=== PATIENT | female | born 1975 | race Caucasian/White ===

== ENCOUNTER → 2016-07-27 | Outpatient (CLI) | payer OTHER ==
--- NOTE | 2016-07-27 16:02 | Diagnostic Imaging Report ---
INDICATION: Upper respiratory infection. PA and lateral chest obtained at 3:53 p.m. and compared to 12/10/15. FINDINGS: Heart and mediastinal silhouette are normal in appearance. The lungs are clear. There is no pneumothorax or pleural fluid. IMPRESSION: Negative chest. Dictated by: Dictated on workstation # [id number]
== END ==
LOC: RAD 15:26
PROVIDERS: ATTEND Family Medicine
DX: J06.9 Acute upper respiratory infection, unspecified (principal)
CPT/HCPCS: 71020

== ENCOUNTER → 2016-08-17 | Outpatient (CLI) | payer OTHER ==
[2016-08-17 10:10] LABS: BASOPHILS % (AUTO) 1 % (0-10); EOSINOPHILS # (AUTO) 0.2 10^3/uL (0.0-0.3); EOSINOPHILS % (AUTO) 4 % (0-10); LYMPHOCYTES # (AUTO) 1.6 X 10^3 (1.0-4.0); LYMPHOCYTES % (AUTO) 24 % (12-44); MEAN CORPUSCULAR HEMOGLOBIN 30 PG (25-34); MEAN CORPUSCULAR HGB CONC 34 G/DL (32-36); MEAN CORPUSCULAR VOLUME 89 FL (80-99); MEAN PLATELET VOLUME 11.3 FL (7.4-10.4); MONOCYTES # (AUTO) 0.6 X 10^3 (0.0-1.0); MONOCYTES % (AUTO) 10 % (0-12); NEUTROPHILS # (AUTO) 4.1 X 10^3 (1.8-7.8); NEUTROPHILS % (AUTO) 62 % (42-75); PLATELET COUNT 237 10^3/uL (130-400); RED BLOOD COUNT 4.22 10^6/uL (4.35-5.85); RED CELL DISTRIBUTION WIDTH 14.5 % (10.0-14.5); WHITE BLOOD COUNT 6.7 10^3/uL (4.3-11.0)
[2016-08-17 10:33] LABS: ALANINE AMINOTRANSFERASE 212 U/L (0-55); ALBUMIN 4.2 GM/DL (3.2-4.5); ANION GAP 10 MMOL/L (5-14); ASPARTATE AMINO TRANSFERASE 119 U/L (5-34); BLOOD UREA NITROGEN 7 MG/DL (7-18); BUN/CREATININE RATIO 9 (0-20); CALCIUM 9.7 MG/DL (8.5-10.1); CARBON DIOXIDE 24 MMOL/L (21-32); CHLORIDE 104 MMOL/L (98-107); CREATININE SERUM 0.79 MG/DL (0.60-1.30); GFR ESTIMATED > 60; GLUCOSE 178 MG/DL (70-105); HEMOLYSIS 5 (-100-29); ICTERUS 0.8 (-100-1.9); LIPEMIA 16 (-100-49); POTASSIUM 4.1 MMOL/L (3.6-5.0); SODIUM 138 MMOL/L (135-145); TOTAL PROTEIN 7.5 GM/DL (6.4-8.2)
[2016-08-17 10:56] LABS: THYROID STIMULATING HORMONE 1.73 UIU/ML (0.35-4.94)
== END ==
LOC: LAB 09:41
PROVIDERS: ATTEND Family Medicine
DX: E28.2 Polycystic ovarian syndrome (principal); R05 Cough
CPT/HCPCS: 36415; 80053; 83036; 84439; 84443; 85025

== ENCOUNTER → 2016-08-18 | Outpatient (CLI) | payer OTHER ==
[2016-08-19 01:39] LABS: LYME AB G M 0.09 Index (0.00-0.89)
[2016-08-19 07:26] LABS: LYME AB INTERP Negative (Negative)
[2016-08-19 07:28] LABS: TULAREMIA ANTIBODY <1:20
[2016-08-19 13:21] LABS: EHRLICHIA CHAFFEENSIS G ABY <1:16 (<1:16)
[2016-08-19 15:54] LABS: IGG ROCKY MOUNTAIN SPOTTED FEV <1:16 (<1:16); IGM ROCKY MOUNTAIN SPOTTED FEV <1:10 (<1:10)
== END ==
LOC: LAB 15:46
PROVIDERS: ATTEND Family Medicine
DX: R74.8 Abnormal levels of other serum enzymes (principal)
CPT/HCPCS: 36415; 80074; 86618; 86666; 86668; 86757

== ENCOUNTER 2016-10-08 10:12 | Outpatient (CLI) | payer OTHER | END 2016-10-08 10:45 | disposition home or self-care (01) | LOC: SLEEP 10:12 | PROVIDERS: ATTEND Otolaryngology Otolaryngology/Facial Plastic Surgery | DX: G47.33 Obstructive sleep apnea (adult) (pediatric) (principal) ==

== ENCOUNTER → 2016-10-15 | Outpatient (CLI) | payer OTHER ==
[~2016-10-15] MED LIST: CATHETER FLUSH 10 ML SYR IV PRN; IOHEXOL 350 MG/ML 100 ML (OMNIPAQUE 350) VIAL IV ONE; NS 100 ML (IVPB) BAG IV ONE
[2016-10-15 08:14] LABS: BLOOD UREA NITROGEN 9 MG/DL (7-18); BUN/CREATININE RATIO 12; CREATININE SERUM 0.75 MG/DL (0.60-1.30); GFR ESTIMATED > 60
--- NOTE | 2016-10-15 09:30 | Diagnostic Imaging Report ---
CLINICAL INDICATION: Since May 2016, patient has had a sore throat and cough. EXAM: Axial CT scan of the neck soft tissue performed with 75 cc of Omnipaque 350 IV contrast. Coronal reformatted images were created. COMPARISON: None. FINDINGS: There is a circumscribed 7 mm x 3 mm hypodense area involving the left side of the posterior nasopharynx seen on series 2, image 20. This likely represents a mucus retention cyst or an area of fluid within the left lateral recess. Otherwise, there is no significant neck soft tissue abnormality seen. The nasopharynx, oropharynx, hypopharynx, and laryngeal structures show no significant abnormality. The thyroid gland is unremarkable. There is nonspecific minimal prominence of the intraglandular bilateral submandibular gland ducts. There is no stones or mass seen. The ducts are less than 2 mm in size. The bilateral salivary glands are unremarkable. The visualized portions of the tongue, sublingual region, and submandibular regions are unremarkable. There is multiple small lymph nodes seen throughout both next which are all subcentimeter in short axis. The neck vascular structures are unremarkable as visualized. The upper lung amaya are clear. There is a small to moderate amount of mucosal thickening and secretions in the sphenoid sinus. Torus palatinus is noted. 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 Cervical spine shows no significant abnormality. IMPRESSION: 1: Likely small mucus retention cyst or area of fluid in the region of the left lateral recess of the posterior nasopharynx. 2: There is nonspecific minimal prominence of the intraglandular ducts of both submandibular glands. There are no stones or masses seen. There is no adjacent fat stranding or inflammatory process. 3: Otherwise unremarkable CT scan of the neck soft tissue. 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 Dictated by: Dictated on workstation # [id number]
== END ==
LOC: RAD 07:33
PROVIDERS: ATTEND Otolaryngology Otolaryngology/Facial Plastic Surgery
DX: R93.8 Abnormal findings on diagnostic imaging of other specified body structures (principal); Q28.3 Other malformations of cerebral vessels; J02.9 Acute pharyngitis, unspecified; R05 Cough
CPT/HCPCS: 36415; 70491; 82565; 84520

== ENCOUNTER → 2016-11-22 | Outpatient (CLI) | payer OTHER ==
[~2016-11-22] MED LIST changes: -CATHETER FLUSH 10 ML SYR IV PRN; -IOHEXOL 350 MG/ML 100 ML (OMNIPAQUE 350) VIAL IV ONE; -NS 100 ML (IVPB) BAG IV ONE; +RT-ALBUTEROL SULF 2.5 MG/3 ML PRE-MIX VIAL IH ONE
== END ==
LOC: RT 13:06
PROVIDERS: ATTEND Family Medicine
DX: R05 Cough (principal)
CPT/HCPCS: 94060; 94640; 94726; 94729

== ENCOUNTER → 2016-12-03 | Outpatient (CLI) | payer OTHER ==
--- NOTE | 2016-12-03 16:08 | Diagnostic Imaging Report ---
PROCEDURE: CT chest without contrast. TECHNIQUE: Multiple contiguous axial images were obtained through the chest without the use of intravenous contrast. INDICATION: Chronic cough since May. FINDINGS: The lungs are well aerated. There are no infiltrates. No evidence of interstitial lung disease. No evidence of bronchiectasis. No air trapping is seen. No masses are present. No mediastinal or hilar adenopathy of pathologic size. There is no pleural effusion or pericardial effusion. The adrenal glands are normal. There is a small fixed hiatal hernia present. Bone windows show no destructive or blastic bony lesions. IMPRESSION: 1. Lungs appear normal. 2. There is a small fixed hiatal hernia present. Dictated by: Dictated on workstation # [id number]
[2016-12-03 16:12] LABS: ALANINE AMINOTRANSFERASE 341 U/L (0-55); ALBUMIN 4.2 GM/DL (3.2-4.5); ANION GAP 10 MMOL/L (5-14); ASPARTATE AMINO TRANSFERASE 159 U/L (5-34); BILIRUBIN,TOTAL 0.8 MG/DL (0.1-1.0); BLOOD UREA NITROGEN 7 MG/DL (7-18); BUN/CREATININE RATIO 7; CALCIUM 9.4 MG/DL (8.5-10.1); CARBON DIOXIDE 22 MMOL/L (21-32); CHLORIDE 106 MMOL/L (98-107); CREATININE SERUM 0.96 MG/DL (0.60-1.30); GFR ESTIMATED > 60; GLUCOSE 222 MG/DL (70-105); POTASSIUM 3.5 MMOL/L (3.6-5.0); SODIUM 138 MMOL/L (135-145); TOTAL PROTEIN 7.5 GM/DL (6.4-8.2)
[2016-12-03 16:32] LABS: THYROID STIMULATING HORMONE 1.97 UIU/ML (0.35-4.94)
[2016-12-03 22:20] LABS: IGE DETAIL 32.3 IU/mL
[2016-12-04 16:26] LABS: INT IGE See Footnote
[2016-12-05 07:19] LABS: BERMUDA CL CLASS 0; BERMUDA GRASS RAST <0.35 kU/L (<0.35); ELM TREE <0.35 kU/L (<0.35); ELM TREE CL CLASS 0; KENT BLUE CL CLASS 0; KENTUCKY BLUE GRASS RAST <0.35 kU/L (<0.35); OAK TREE <0.35 kU/L (<0.35); OAK TREE CL CLASS 0; PECAN TR CL CLASS 0
[2016-12-05 07:20] LABS: CAT DANDER CL CLASS 0; CAT DANDER RAST <0.35 kU/L (<0.35); DOG DANDER CL CLASS 0; DOG DANDER RAST <0.35 kU/L (<0.35); DUST MITE CL CLASS 0; DUST MITE RAST <0.35 kU/L (<0.35); JOHNSON GR CL CLASS 0; JOHNSON GRASS RAST <0.35 kU/L (<0.35); MARSH ELDER RAST <0.35 kU/L (<0.35); RAGWEED CL CLASS 0; RAGWEED RAST <0.35 kU/L (<0.35); ROUGH MARSH CL CLASS 0
[2016-12-05 07:21] LABS: ALT TEN CL CLASS 0; CLADOSPORIUM CL CLASS 0; CLADOSPORIUM MOLD RAST <0.35 kU/L (<0.35)
[2016-12-05 07:23] LABS: ALLERGEN INTERP SEE FOOTNOTE
== END ==
LOC: RAD 15:08
PROVIDERS: ATTEND Nurse Practitioner Family
DX: K44.9 Diaphragmatic hernia without obstruction or gangrene (principal); J30.9 Allergic rhinitis, unspecified
CPT/HCPCS: 36415; 71250; 80053; 82785; 84443; 84480; 86003

== ENCOUNTER → 2016-12-03 | Outpatient (CLI) | payer OTHER | LOC: LAB 15:17 | PROVIDERS: ATTEND Family Medicine | DX: R05 Cough (principal); R53.83 Other fatigue; R74.8 Abnormal levels of other serum enzymes ==

== ENCOUNTER → 2017-01-28 | Outpatient (CLI) | payer OTHER ==
[2017-01-28 08:53] LABS: ALANINE AMINOTRANSFERASE 230 U/L (0-55); ALBUMIN 4.4 GM/DL (3.2-4.5); ANION GAP 7 MMOL/L (5-14); ASPARTATE AMINO TRANSFERASE 124 U/L (5-34); BILIRUBIN,TOTAL 0.9 MG/DL (0.1-1.0); BLOOD UREA NITROGEN 7 MG/DL (7-18); BUN/CREATININE RATIO 9; CALCIUM 9.7 MG/DL (8.5-10.1); CARBON DIOXIDE 24 MMOL/L (21-32); CHLORIDE 107 MMOL/L (98-107); CREATININE SERUM 0.75 MG/DL (0.60-1.30); GFR ESTIMATED > 60; GLUCOSE 144 MG/DL (70-105); POTASSIUM 4.2 MMOL/L (3.6-5.0); SODIUM 138 MMOL/L (135-145); TOTAL PROTEIN 7.8 GM/DL (6.4-8.2)
== END ==
LOC: LAB 08:16
PROVIDERS: ATTEND Family Medicine
DX: R73.9 Hyperglycemia, unspecified (principal); R74.8 Abnormal levels of other serum enzymes
CPT/HCPCS: 36415; 80053; 83036

== ENCOUNTER → 2017-09-23 | Outpatient (CLI) | payer OTHER ==
[2017-09-23 09:46] LABS: BASOPHILS % (AUTO) 1 % (0-10); EOSINOPHILS # (AUTO) 0.1 10^3/uL (0.0-0.3); EOSINOPHILS % (AUTO) 2 % (0-10); HEMATOCRIT 38 % (35-52); LYMPHOCYTES # (AUTO) 1.6 X 10^3 (1.0-4.0); LYMPHOCYTES % (AUTO) 27 % (12-44); MEAN CORPUSCULAR HEMOGLOBIN 29 PG (25-34); MEAN CORPUSCULAR HGB CONC 34 G/DL (32-36); MEAN CORPUSCULAR VOLUME 86 FL (80-99); MEAN PLATELET VOLUME 11.2 FL (7.4-10.4); MONOCYTES # (AUTO) 0.6 X 10^3 (0.0-1.0); MONOCYTES % (AUTO) 10 % (0-12); NEUTROPHILS # (AUTO) 3.4 X 10^3 (1.8-7.8); NEUTROPHILS % (AUTO) 59 % (42-75); PLATELET COUNT 210 10^3/uL (130-400); RED BLOOD COUNT 4.43 10^6/uL (4.35-5.85); RED CELL DISTRIBUTION WIDTH 14.8 % (10.0-14.5); WHITE BLOOD COUNT 5.7 10^3/uL (4.3-11.0)
[2017-09-23 10:00] LABS: ALANINE AMINOTRANSFERASE 286 U/L (0-55); ALBUMIN 4.6 GM/DL (3.2-4.5); ALKALINE PHOSPHATASE 64 U/L (40-136); BILIRUBIN,TOTAL 1.1 MG/DL (0.1-1.0); BUN/CREATININE RATIO 8; CARBON DIOXIDE 26 MMOL/L (21-32); CHLORIDE 107 MMOL/L (98-107); CREATININE SERUM 0.76 MG/DL (0.60-1.30); GFR ESTIMATED > 60; GLUCOSE 136 MG/DL (70-105); POTASSIUM 4.3 MMOL/L (3.6-5.0); SODIUM 140 MMOL/L (135-145); TOTAL PROTEIN 7.5 GM/DL (6.4-8.2)
== END ==
LOC: LAB 09:14
PROVIDERS: ATTEND Nurse Practitioner Family
DX: Z00.00 Encounter for general adult medical examination without abnormal findings (principal); R74.8 Abnormal levels of other serum enzymes; E28.2 Polycystic ovarian syndrome; R73.02 Impaired glucose tolerance (oral)
CPT/HCPCS: 36415; 80053; 83036; 83525; 84443; 85025

== ENCOUNTER → 2017-10-11 | Outpatient (CLI) | payer OTHER ==
--- NOTE | 2017-10-12 13:12 | Diagnostic Imaging Report ---
INDICATION: Routine screening. COMPARISON: Comparison is made with prior mammogram from 03/26/2015. TECHNIQUE: 2D and 3D bilateral screening mammography was performed with computer-aided detection (CAD) system. FINDINGS: Scattered fibroglandular densities are identified bilaterally. The parenchymal pattern appears stable. No dominant mass or malignant appearing microcalcifications are seen. Area of nodularity in the retroareolar left breast appears stable. Axillae are unremarkable. IMPRESSION: No mammographic features suspicious for malignancy are identified. ACR BI-RADS Category 2: Benign findings. Result letter will be mailed to the patient. Note: At least 10% of breast cancer is not imaged by mammography. Dictated by: Dictated on workstation # [id number]
== END ==
LOC: RAD 09:30
PROVIDERS: ATTEND Nurse Practitioner Family
DX: Z12.31 Encounter for screening mammogram for malignant neoplasm of breast (principal)
CPT/HCPCS: 77067

== ENCOUNTER → 2017-11-10 | Outpatient (CLI) | payer OTHER ==
--- NOTE | 2017-11-10 16:34 | Diagnostic Imaging Report ---
Clinical indication: Patient with slight wheeze when exhaling. Patient had cough x 1 week. Exam: Chest x-ray PA and lateral views. Comparisons: Chest x-ray dated 07/27/2016. Findings: Lungs/pleura: Lungs are clear. There is no pneumothorax. There is no pleural effusion. Mediastinum: Unremarkable. Pulmonary vasculature: Unremarkable. Heart: Unremarkable. Bones/extrathoracic soft tissue: Surgical clips are seen overlying the right upper quadrant which could be related to cholecystectomy changes. Bones show no significant abnormality. Impression: There is no radiographic evidence of acute cardiopulmonary process. Dictated by: Dictated on workstation # [id number]
== END ==
LOC: RAD 15:40
PROVIDERS: ATTEND Nurse Practitioner Family
DX: R05 Cough (principal); R06.2 Wheezing; R09.89 Other specified symptoms and signs involving the circulatory and respiratory systems
CPT/HCPCS: 71046

== ENCOUNTER → 2018-01-31 | Outpatient (CLI) | payer OTHER ==
--- NOTE | 2018-01-31 18:23 | Diagnostic Imaging Report ---
INDICATION: Pain in the region of the right fibular head. TIME OF EXAM: 3:04 p.m. FINDINGS: Frontal and lateral views of the right tibia and fibula were obtained. Alignment at the knee and ankle appears normal. The tibia and fibula appear intact. No fractures are identified. IMPRESSION: No acute bony abnormality is detected. Dictated by: Dictated on workstation # [id number]
--- NOTE | 2018-01-31 18:28 | Diagnostic Imaging Report ---
INDICATION: Right-sided leg pain. TIME OF EXAM: 3:03 p.m. FINDINGS: Three views of the lumbar spine were obtained. Curvature is normal. There appears to be minimal retrolisthesis of L4 on L5. Vertebral body heights are maintained. No acute compression fracture is identified. Minimal anterior spurring at the L4-5 level is noted. IMPRESSION: Mild lower lumbar spondylosis and listhesis. No acute bony abnormality is detected. Dictated by: Dictated on workstation # [id number]
== END ==
LOC: RAD 14:30
PROVIDERS: ATTEND Family Medicine
DX: M47.26 Other spondylosis with radiculopathy, lumbar region (principal); M43.16 Spondylolisthesis, lumbar region
CPT/HCPCS: 72100; 73590

== ENCOUNTER → 2018-06-27 | Outpatient (CLI) | payer OTHER | LOC: CARD 09:49 | PROVIDERS: ATTEND Nurse Practitioner Family | DX: R03.0 Elevated blood-pressure reading, without diagnosis of hypertension (principal) | CPT/HCPCS: 93306 ==

== ENCOUNTER → 2019-02-01 | Outpatient (CLI) | payer OTHER ==
--- NOTE | 2019-02-01 12:06 | Diagnostic Imaging Report ---
INDICATION: Routine screening. Comparison is made with prior mammogram 10/11/2017 and 03/26/2015. 2-D and 3-D bilateral screening mammography was performed with CAD. Scattered fibroglandular densities are identified bilaterally. Retroareolar nodularity on the left appears stable. Remainder of both breasts appears stable. No new mass or malignant appearing microcalcifications are seen. Axillae are unremarkable. IMPRESSION: BI-RADS Category 2 No mammographic features suspicious for malignancy are identified. ACR BI-RADS Category 2: Benign findings. Result letter will be mailed to the patient. Note: At least 10% of breast cancer is not imaged by mammography. Dictated by: Dictated on workstation # [id number]
== END ==
LOC: RAD 10:20
PROVIDERS: ATTEND Family Medicine
DX: Z12.31 Encounter for screening mammogram for malignant neoplasm of breast (principal)
CPT/HCPCS: 77067

== ENCOUNTER 2019-05-11 09:28 | Outpatient (CLI) | payer OTHER ==
[~2019-05-11] VITALS: Ht 157 cm; Wt 103.1 kg
[2019-05-11] MEDS ORDERED: LISI40TA PO (09:42)
[2019-05-11] MEDS ORDERED: METF-399 PO (09:42)
[2019-05-11] MEDS ORDERED: ESCI20TA PO (09:42)
[2019-05-11] MEDS ORDERED: AMLO5TAB9 PO (09:42)
[2019-05-11] MEDS ORDERED: BREX0.5T PO (09:42)
[2019-05-11 09:47] VITALS: BP 124/76
[2019-05-11 11:12] LABS: BASOPHILS % (AUTO) 0 % (0-10); EOSINOPHILS # (AUTO) 0.4 10^3/uL (0.0-0.3); EOSINOPHILS % (AUTO) 5 % (0-10); HEMATOCRIT 39 % (35-52); HEMOGLOBIN 13.1 G/DL (11.5-16.0); LYMPHOCYTES # (AUTO) 1.9 X 10^3 (1.0-4.0); LYMPHOCYTES % (AUTO) 23 % (12-44); MEAN CORPUSCULAR HEMOGLOBIN 28 PG (25-34); MEAN CORPUSCULAR HGB CONC 33 G/DL (32-36); MEAN CORPUSCULAR VOLUME 86 FL (80-99); MEAN PLATELET VOLUME 11.8 FL (7.4-10.4); MONOCYTES # (AUTO) 0.6 X 10^3 (0.0-1.0); MONOCYTES % (AUTO) 8 % (0-12); NEUTROPHILS # (AUTO) 5.2 X 10^3 (1.8-7.8); NEUTROPHILS % (AUTO) 64 % (42-75); PLATELET COUNT 303 10^3/uL (130-400); RED CELL DISTRIBUTION WIDTH 14.8 % (10.0-14.5); WHITE BLOOD COUNT 8.1 10^3/uL (4.3-11.0)
== END 2019-05-11 12:30 | disposition home or self-care (01) ==
LOC: PREOP 09:28
PROVIDERS: ATTEND Obstetrics & Gynecology
DX: Z01.812 Encounter for preprocedural laboratory examination (principal); N92.0 Excessive and frequent menstruation with regular cycle; R32 Unspecified urinary incontinence
CPT/HCPCS: 36415; 85025; 86850; 86900; 86901; 87081

== ENCOUNTER 2019-05-18 10:02 | Day surgery (SDC) | payer OTHER ==
[~2019-05-18] VITALS: Ht 157 cm; Wt 103.1 kg
[2019-05-18] VITALS (11 sets, daily range): BP systolic 72–128; BP diastolic 38–79
--- NOTE | 2019-05-18 09:11 | Progress Note-Pre Operative ---
Pre-Operative Progress Note H&P Reviewed The H&P was reviewed, patient examined and no changes noted. Date Seen by Provider: May 18, 2019 Time Seen by Provider: 11:45 Date H&P Reviewed: May 18, 2019 Time H&P Reviewed: :45 Pre-Operative Diagnosis: Uterovaginal prolapse/PIO WILY METZGER MD May 18, 2019 09:11
--- NOTE | 2019-05-18 09:12 | Progress Note-Post Operative ---
Post-Operative Progess Note Surgeon (s)/Furniture Inspector (s) Surgeon WILY METZGER MD Furniture Inspector: Skylar Dukes Pre-Operative Diagnosis Uterovaginal prolapse/PIO Post-Operative Diagnosis same Procedure & Operative Findings Date of Procedure 05/18/19 Procedure Performed/Findings TLH/BSO/A&P rep with Enterocele repair and PVS/Cysto by Dr. Raymond Anesthesia Type GETA Estimated Blood Loss Estimated blood loss (mL): 200 mL Specimens/Packing Specimens Removed TLH/BSO Packing: Kerlix in vagina WILY METZGER MD May 18, 2019 09:12
--- NOTE | 2019-05-18 09:19 | Discharge Inst-Surgical ---
Discharge Inst-Surgical Depart Medication/Instructions New, Converted or Re-Newed RX: RX on Chart Consults/Follow Up Patient Instructions: as directed Orders & Referrals Follow Up Appt: RTC on Tuesday May 21, 2019 at 0930 for staple removal Call to make follow up appt. for patient in 4 weeks. F/up with Dr. Raymond per his directions Activity: Rest for 24 hours, than as tolerated. Wound Care: May remove Band-Aid tomorrow. Replace as desired. Keep incisions clean and dry. Wash daily with soap and water. Please call in RX to patient pharmacy. Diet: As tolerated-Clear Liquids only if nauseated. shower or tub bathe as desired. No driving for 24 hours, no alcoholic beverages for 24 hours, and nothing per vagina (no tampons, douching, or intercourse) for 8 weeks. Patient to return to the clinic as soon as possible for: Temperature greater than 101F, Severe Pain, Foul discharge from incision or vagina, Excessive Bleeding (more than a period). Activity Activity as Tolerated: No Diet Discharge Diet: No Restrictions WILY METZGER MD May 18, 2019 09:19
[~2019-05-18 10:02] MED LIST changes: +AMLO5TAB9 PO; +BENZOCAINE/MENTHOL (DERMOPLAST) 60 ML CAN TP PRN; +BREX0.5T PO; +DCS100C PO; +ESCI20TA PO; +ESTR1TAB24 PO; +ESTROGENS CONJ INJECTION 25 MG in WATER (STERILE) FOR INJECTION 5 ML IV ONE; +IBUP-1780 PO; +KETOROLAC 30 MG/ML VIAL IVP SCH; +LISI40TA PO; +MEPERIDINE (DEMEROL) INJ 100 MG/ML IM PRN; +METF-399 PO; +ONDANSETRON 4 MG/2 ML (SDV) Z0FRAN IVP PRN; +OXYC1TAB87 PO; +PROMETHAZINE INJ 25 MG/ML (PHENERGAN) AMP IM PRN; -RT-ALBUTEROL SULF 2.5 MG/3 ML PRE-MIX VIAL IH ONE
[2019-05-18] MEDS ORDERED: ceFAZolin INJECTION 1,000 MG in WATER (STERILE) FOR INJECTION 10 ML IV ONE (10:30)
[2019-05-18] MEDS ORDERED: BREX1TAB PO (10:50)
[2019-05-18] MEDS ORDERED: LIRA0.6P SQ (10:50)
[2019-05-18] MEDS ORDERED: ONDANSETRON 4 MG/2 ML (SDV) Z0FRAN ONE ×2 (11:08→11:30)
[2019-05-18] MEDS ORDERED: FAMOTIDINE 20MG/2ML IV (PEPCID) ONE (11:08)
[2019-05-18] MEDS ORDERED: BUP/EPI 0.5% 1:200,000 (SENSORCAINE) 30 ML VIAL ONE (11:15)
[2019-05-18] MEDS ORDERED: FAMOTIDINE 20MG/2ML IV (PEPCID) IV ONE (11:15)
[2019-05-18] MEDS ORDERED: ONDANSETRON 4 MG/2 ML (SDV) Z0FRAN IV ONE (11:15)
[2019-05-18] MEDS ORDERED: SCOPOLAMINE 1.5 MG (TRANSDERM-SCOP) PATCH ONE (11:23)
[2019-05-18] MEDS ORDERED: fentaNYL INJECTION 100 MCG/2 ML AMP ONE ×2 (11:24→13:27)
[2019-05-18] MEDS ORDERED: ESTRADIOL VAGINAL CREAM 42.5 GM (ESTRACE) VG ONE (11:24)
[2019-05-18] MEDS ORDERED: MIDAZOLAM 2 MG/2 ML (VERSED) VIAL ONE (11:25)
[2019-05-18] MEDS: LACTATED RINGERS 1,000 ML IV PRN ×2 (11:27→12:38)
[2019-05-18] MEDS ORDERED: LIDOCAINE PF 2% 5 ML (XYLOCAINE) VIAL ONE (11:30)
[2019-05-18] MEDS ORDERED: SCOPOLAMINE 1.5 MG (TRANSDERM-SCOP) PATCH TD ONE (11:30)
[2019-05-18] MEDS ORDERED: SEVOFLURANE (ULTANE) 15 ML INHAL SOLN ONE ×3 (11:30→13:45)
[2019-05-18] MEDS ORDERED: ROCURONIUM 10 MG/ML 5 ML SYRINGE IV ONE (11:30)
[2019-05-18] MEDS ORDERED: proPOfol 200 MG/20 ML (DIPRIVAN) VIAL IV ONE (11:30)
[2019-05-18] MEDS ORDERED: GLYCOPYRROLATE 0.2 MG/ML (ROBINUL) 2 ML VIAL ONE ×2 (11:30→13:44)
[2019-05-18] MEDS ORDERED: NEOSTIGMINE 3 MG/3 ML VIAL ONE (11:30)
[2019-05-18] MEDS ORDERED: SCOPOLAMINE 1.5 MG (TRANSDERM-SCOP) PATCH TOP ONE (11:45)
--- NOTE | 2019-05-18 12:58 | Progress Note-Post Operative ---
Post-Operative Progess Note Surgeon (s)/Charge Accounts Audit Clerk (s) Surgeon EDWIGE RAMEY MD Charge Accounts Audit Clerk: DOMENICA Pre-Operative Diagnosis PIO Post-Operative Diagnosis SAME Procedure & Operative Findings Date of Procedure 05/18/19 Procedure Performed/Findings PVS AND CYSTO Anesthesia Type GENERAL Estimated Blood Loss Estimated blood loss (mL): NEGLIGIBLE Specimens/Packing Specimens Removed NONE Packing: ESTRACE VAG PACK EDWIGE RAMEY MD May 18, 2019 12:58
--- OUTSIDE RECORDS SUMMARY | 2019-05-18 13:12 | XMS REPORT | Continuity of Care Document ---
Author Author CHARLINE Loomis Organization [facility] Address [address] [place] [address] Phone Care Team Providers Care Ham Facer Name Role Phone PP Unavailable Payers Payer name Insurance type Covered democrat ID Authorization(s ) [facility] [employer] [id number] Problems Condition Effective Dates (start - stop) Clinical Status Paresthesia and pain of left extremity - Family History Family Member Diagnosis Age At Onset Status Unknown Social History Social History Element Description Quantity Unknown Allergies, Adverse Reactions, Alerts Substance Reaction Severity Status Unknown Medications Medication Instructions Dosage Effective Dates (start - sto p) Status Unknown Immunizations Vaccine Date Status Comments Unknown Results Test Name Date and Time Measure Units Reference Range Abnormal F lag Comments Unknown Vital Signs Date / Time: Height Weight Pulse Rate Blood Pressure Temperat ure Unknown Procedures Procedure Date Unknown Encounters Encounter Location Date Patient Visit [facility] Advance Directives Directive Effective Date Unknown
--- OUTSIDE RECORDS SUMMARY | 2019-05-18 13:12 | XMS REPORT | Continuity of Care Document ---
Author Author CHARLINE Cunningham [facility] Address Unknown Phone Unavailable Care Team Providers Care Parts Lister Name Role Phone PP Unavailable Payers Payer name Insurance type Covered democrat ID Authorization(s ) [employer] Select GP [id number] Problems Condition Effective Dates (start - stop) Clinical Status Paresthesia and pain of left extremity - Family History Family Member Diagnosis Age At Onset Status Unknown Social History Social History Element Description Quantity Unknown Allergies, Adverse Reactions, Alerts Substance Reaction Severity Status Unknown Medications Medication Instructions Dosage Effective Dates (start - sto p) Status Ativan 2 mg tablet TAKE 1TAB 45MIN PRIOR TO MRI IF INEFFECTIVE IN 30MIN TAKE 1 TAB NO DRIVING TO OR FROM PROCEDURE - Acti ve Immunizations Vaccine Date Status Comments Unknown Results Test Name Date and Time Measure Units Reference Range Abnormal F lag Comments Unknown Vital Signs Date / Time: Height Weight Pulse Rate Blood Pressure Temperat ure Unknown Procedures Procedure Date Unknown Encounters Encounter Location Date Patient Visit [facility] Patient Visit [facility] No Patient Visit [facility] Advance Directives Directive Yes / No Effective Date Resuscitation Yes 04/06/2012 Life Support Yes 04/06/2012 Intubation Yes 04/06/2012 Antibiotics Yes 04/06/2012 IV Fluid Support Yes 04/06/2012 WARNING:The information contained in this section is historical and is provided for information only and does not constitute a legal document or any assurance t hat the information is still accurate. Please verify the information with the ho lder of the legal document before using it for clinical purposes.
--- OUTSIDE RECORDS SUMMARY | 2019-05-18 13:12 | XMS REPORT | Continuity of Care Document ---
Author Author CHARLINE Loomis Organization [facility] Address [address] [place] [address] Phone Care Team Providers Care Bobj Developer Name Role Phone PP Unavailable Payers Payer name Insurance type Covered constitution party ID Authorization(s ) [facility] [place] [facility] Select GP [id number] Problems Condition Effective Dates (start - stop) [...] Encounters Encounter Location Date Patient Visit [facility] Patient Visit [facility] Advance Directives Directive Effective Date Unknown
--- OUTSIDE RECORDS SUMMARY | 2019-05-18 13:12 | XMS REPORT | Continuity of Care Document ---
Author Author CHARLINE Loomis Organization [facility] Address [address] [place] [address] Phone Care Team Providers Care Tie Tape Machine Operator Name Role Phone PP Unavailable Payers Payer name Insurance type Covered green party ID Authorization(s ) [employer] [place] [facility] Select GP [id number] Problems Condition Effective Dates (start - stop) [...] Unknown Encounters Encounter Location Date Patient Visit [facility] No Patient Visit [facility] No Patient Visit [facility] Advance Directives Directive Effective Date Unknown
--- OUTSIDE RECORDS SUMMARY | 2019-05-18 13:12 | XMS REPORT ---
Author Author Veronica Vaughan [facility] Address [address] [place], [place] [id number] Care Team Providers Care Paint Prepper Name Role Phone Holly Vaughan PCP Allergies and Adverse Reactions Name Reaction Notes Biaxin Plan of Treatment Not available. Medications Active Name Start Date Estimated Completion Date SIG Co mments metformin 1,000 mg oral tablet t loki 1 tablet (1,000 mg) by oral route 2 times per day with morning and evening meals Lexapro 20 mg oral tablet take 1 tablet ( 20 mg) by oral route once daily Problem List Not available. Vital Signs Date Time BP-Sys(mm[Hg] BP-[place](mm[Hg]) HR(bpm) RR(rpm) Temp WT HT HC BMI BSA BMI Percentile O2 Sat(%) 01/20/2018 8:22:00 PM 140 mmHg 100 mmHg 74 bpm 97.7 F 98 % Social History Name Description Comments Tobacco Never Alcohol Use - Occasional History of Procedures Not available. Results Summary Not available. History Of Immunizations Not available. History of Past Illness Name Date of Onset Comments Diabetes Pneumonia Contusion Jan 20 2018 8:32PM Payers Not available. History of Encounters Visit Date Visit Type Provider 01/20/2018 Office visit Holly Vaughan APRN
--- OUTSIDE RECORDS SUMMARY | 2019-05-18 13:12 | XMS REPORT | Continuity of Care Document ---
Author Author [place] [employer] Address Unknown Phone Unavailable Care Team Providers Care Labor Employment Associate Name Role Phone [employer] Unavailable Unavailable Problems Problem Status Onset Date Classification Date Reported Comments Source Paresthesia and pain of left extremity 12/15/2011 Diagnosis 04/15/2012 [facility] Medications Medication Details Route Status Patient Instructions Ordering Provider Order Date Source Ativan 2 mg tablet TAKE 1TAB 4 5MIN PRIOR TO MRI IF INEFFECTIVE IN 30MIN TAKE 1 TAB NO DRIVING TO OR FROM PROCEDURE ORAL Active 01/04/2012 [facility] Allergies, Adverse Reactions, Alerts No Known Medication Allergies Immunizations No Data Provided for This Section Results No Data Provided for This Section Pathology Reports No Data Provided for This Section Diagnostic Reports No Data Provided for This Section Consultation Notes No Data Provided for This Section Discharge Summaries No Data Provided for This Section History and Physicals No Data Provided for This Section Vital Signs No Data Provided for This Section Encounters Location Location Details Encounter Type Encounter Number Reason For Visit Attending Provider ADM Date DC Date Status Source [facility] [id number] Blessing Danielle 04/06/2012 04/06/2012 [facility] [id number] Maria Guadalupe Danielle 01/13/2012 01/13/2012 [facility] [id number] Blessing Danielle 01/04/2012 01/04/2012 [facility] [id number] Maria Guadalupe Danielle 12/30/2011 12/30/2011 [facility] [id number] Maria Guadalupe Danielle 12/22/2011 12/22/2011 [facility] [id number] Blessing Danielle 12/15/2011 12/15/2011 [facility] Procedures No Data Provided for This Section Plan of Care No Data Provided for This Section Social History Social History Date Source Social History ElementDescriptionQuantit y Unknown 04/15/2012 [facility] Social History ElementDescriptionQuantit y Unknown 01/21/2012 [facility] Social History ElementDescriptionQuantit y Unknown 01/12/2012 [facility] Social History ElementDescriptionQuantit y Unknown 01/07/2012 [facility] Social History ElementDescriptionQuantit y Unknown 12/30/2011 [facility] Social History ElementDescriptionQuantit y Unknown 12/23/2011 [facility] Assessment and Plan No Data Provided for This Section Family History Value Date S ource Family MemberDiagnosisAge At OnsetStatus Unknown 04/15/2012 [facility] Family MemberDiagnosisAge At OnsetStatus Unknown 01/21/2012 [facility] Family MemberDiagnosisAge At OnsetStatus Unknown 01/12/2012 [facility] Family MemberDiagnosisAge At OnsetStatus Unknown 01/07/2012 [facility] Family MemberDiagnosisAge At OnsetStatus Unknown 12/30/2011 [facility] Family MemberDiagnosisAge At OnsetStatus Unknown 12/23/2011 [facility] Advance Directives Order Name Results Value Date Source Advance Directives Advance Dir ectives DirectiveYes / NoEffective Date Resuscitation Yes 04/06/2012 Life Support Yes 04/06/2012 Intubation Yes 04/06/2012 Antibiotics Yes 04/06/2012 IV Fluid Support Yes 04/06/2012 WARNING:The information contained in this section is historical and is provided for information only and does not constitute a legal document or any assurance that the information is still accurate. Please verify the information with the freire of the legal document before using it for clinical purposes. 04/15/2012 [facility] Advance Directives Advance Dir ectives DirectiveEffective Date Unknown 01/21/2012 [facility] Advance Directives Advance Dir ectives DirectiveEffective Date Unknown 01/12/2012 [facility] Advance Directives Advance Dir ectives DirectiveEffective Date Unknown 01/07/2012 [facility] Advance Directives Advance Dir ectives DirectiveEffective Date Unknown 12/30/2011 [facility] Advance Directives Advance Dir ectives DirectiveEffective Date Unknown 12/23/2011 [facility] Functional Status No Data Provided for This Section
--- OUTSIDE RECORDS SUMMARY | 2019-05-18 13:12 | XMS REPORT | Continuity of Care Document ---
Author Author CHARLINE Loomis Organization [facility] Address [address] [place] [address] Phone Care Team Providers Care Calcine Furnace Tender Name Role Phone PP Unavailable Payers Payer name Insurance type Covered green party ID Authorization(s ) [facility] [place] [facility] Select GP [id number] Problems Condition Effective Dates (start - stop) [...] Encounters Encounter Location Date Patient Visit [facility] No Patient Visit [facility] Advance Directives Directive Effective Date Unknown
--- OUTSIDE RECORDS SUMMARY | 2019-05-18 13:12 | XMS REPORT | Continuity of Care Document ---
Author Author CHARLINE Danielle [facility] Address [address] [place] [address] Phone Care Team Providers Care Development Mgr Name Role Phone PP Unavailable Payers Payer name Insurance type Covered constitution party ID Authorization(s ) [employer] Select GP [id number] Problems Condition Effective Dates (start - stop) [...] Unknown Encounters Encounter Location Date Patient Visit [facility] No Patient Visit [facility] No Patient Visit [facility] Advance Directives Directive Effective Date Unknown
--- OUTSIDE RECORDS SUMMARY | 2019-05-18 13:13 | XMS REPORT | CCD ---
Author Author Veronica Lopez Organization [facility] Address [address] [place] [address] Phone Unavailable Care Team Providers Care Peanut Grader Name Role Phone Nirmala Jaramillo D.O., PP Unavailable CCM Unavailable Summary Purpose Interface Exchange Insurance Providers Payer name Policy type / Coverage type Covered green party ID Effective Begin Date Effective End Date [employer] Commercial Insurance [id number] Unknown Family History Family History data not found Social History Social History Element Codes Description Effective Dates Marital status Unknown 12/01/2015 Number of children Unknown 3 12/01/2015 Employment Unknown Currently employed 12/01/[address]: 284721021 Never smoker 12/01/[address]: 057356390 Never drinks alcohol 2015 Allergies, Adverse Reactions, Alerts Substance Reaction Codes Entered Date Inactivated Date Status * NO KNOWN FOOD ALLERGIES Unknown 12/01/2015 No Inactiv e Date Active * NO KNOWN ENVIRONMENTAL ALLERGIES Unknown 12/01/2015 N o Inactive Date Active _ reaction, Unknown 12/01/2015 No Inactive Date Active Problems Condition Codes Effective Dates Condition Status Anxiety and depression ICD-9: 300.00 ICD-10: F41.9 04/30/2019 Active Major depressive disorder, single episode, unspecified ICD-10: F 32.9 04/30/2019 Active Type 2 diabetes mellitus with hyperglycemia ICD-9: 250 .02 ICD-10: E11.65 07/06/2018 Active Upper respiratory infection ICD-9: 465.9 ICD-10: J06.9 06/23/2016 Active Viral syndrome ICD-9: 079.99 ICD-10: B34.9 03/26/2019 Active Bursitis of right knee ICD-9: 726.60 ICD-10: M70.51 01/23/2019 Active Sprain of lateral collateral ligament of right knee, i nitial encounter ICD-9: 844.0 ICD-10: S83.421A 01/23/2019 Active Tibial collateral bursitis of right knee ICD-9: 726.62 ICD-10: M76.41 01/23/2019 Active Encounter for therapeutic drug level monitoring ICD-9: V58.83 ICD-10: Z51.81 10/31/2018 Active Generalized anxiety disorder ICD-9: 308.0 ICD-10: F41.1 12/17/2015 Active Essential (primary) hypertension ICD-9: 401.9 ICD-10: I10 06/13/2018 Active Other fatigue ICD-9: 780.79 ICD-10: R53.83 07/06/2018 Active Dizziness and giddiness ICD-9: 780.4 ICD-10: R42 06/13/2018 Active Elevated blood-pressure reading, without diagnosis of hypertension ICD-9: 796.2 ICD-10: R03.0 06/19/2018 Active Hypertension Unknown 06/13/2018 Active Influenza due to identified novel influenza A virus wi th other manifestations ICD-9: 488.09 ICD-10: J09.X9 04/26/2018 Active Acute pharyngitis, unspecified ICD-9: 462 ICD-10: J02.9 04/25/2018 Active Pain in throat ICD-9: 784.1 ICD-10: R07.0 04/25/2018 Active Acute sinusitis, unspecified ICD-9: 461.9 ICD-10: J01.90 07/05/2017 Active Paresthesia of skin ICD-9: 782.0 ICD-10: R20.2 04/14/2018 Active Pain in right leg ICD-9: 729.5 ICD-10: M79.604 01/23/2018 Active Sciatica, right side ICD-9: 724.3 ICD-10: M54.31 01/31/2018 Active Acute bronchitis, unspecified ICD-9: 466.0 ICD-10: J20.9 06/23/2016 Active Hyperglycemia, unspecified ICD-9: 790.29 ICD-10: R73.9 01/26/2017 Active Abnormal levels of other serum enzymes ICD-9: 790.5 ICD-10: R74.8 08/18/2016 Active Encounter for general adult medical examination withou t abnormal findings ICD-9: V70.9 ICD-10: Z00.00 09/22/2017 Active Encounter for gynecological examination (general) (routine) with abnormal findings ICD-9: V72.31 ICD-10: Z01.411 09/22/2017 Active Encounter for screening for malignant neoplasm of colo n ICD-9: V76.51 ICD-10: Z12.11 09/22/2017 Active Encounter for screening mammogram for malignant neopla sm of breast ICD-9: V76.11 ICD-10: Z12.31 09/22/2017 Active Impaired glucose tolerance (oral) ICD-9: 790.22 ICD-10: R73.02 02/02/2017 Active Nonalcoholic steatohepatitis (MOORE) ICD-9: 571.8 ICD-10: K75.81 02/02/2017 Active Polycystic ovarian syndrome ICD-9: 256.4 ICD-10: E28.2 12/17/2015 Active Pneumonia, unspecified organism ICD-9: 486 ICD-10: J18.9 12/17/2015 Active VACCINE FOR TDAP ICD-9: V06.1 ICD-10: Z23 11/30/2016 Active Superficial foreign body, left foot, initial encounter ICD-9: 917.6 ICD-10: S90.852A 11/29/2016 Active Cough ICD-9: 786.2 ICD-10: R05 12/10/2015 Active Family history of other endocrine, nutritional and met abolic diseases ICD-9: V18.19 ICD-10: Z83.49 11/16/2016 Active Other hypertrophic disorders of the skin ICD-9: 701.9 ICD-10: L91.8 10/05/2016 Active Other seasonal allergic rhinitis ICD-9: 477.9 ICD-10: J30.2 09/06/2016 Active PNEUMOCOCCAL VACCINE ICD-9: V03.82 ICD-10: Z23 03/08/2016 Active Acute bronchospasm ICD-9: 519.11 ICD-10: J98.01 12/10/2015 Active Medications Medication Codes Instructions Start Date Stop Date Status Fill Instructions Rexulti 1 mg tablet RxNorm: 3790433 1 Tablet(s) Oral QD 04/30/2019 Active Victoza 2-Ab 0.6 mg/0.1 mL (18 mg/3 mL) subcutaneous pen injector RxNorm: 569140 Milliliter(s) Subcutaneous 0.6 mg daily for 1 week, then 1.2 mg daily for 1 week, then 1.8 mg daily 04/30/2019 08/28/2019 Active Lexapro 20 mg tablet RxNorm: 541737 TAKE 1 TABLET BY MOUTH EVERY DA Y 04/16/2019 06/14/2019 Active lisinopril 40 mg tablet RxNorm: 523531 TAKE 1 TABLET BY MOUTH E VERY 04/04/2019 08/01/2019 Active Trulicity 0.75 mg/0.5 mL subcutaneous pen injector RxNorm: 1 186210 INJECT 1 DOSE SUB-Q ONCE WEEKLY 03/27/2019 05/21/2019 Active Zithromax Z-Ab 250 mg tablet RxNorm: 194428 Tablet(s) Oral jackson e as directed 03/27/2019 03/27/2019 Inactive Zithromax Z-Ab 250 mg tablet RxNorm: 374209 Tablet(s) Oral jackson e as directed 03/27/2019 03/26/2019 Inactive promethazine 6.25 mg-codeine 10 mg/5 mL syrup RxNorm: 468668 5 Milliliter(s) Oral Q4H as needed 03/26/2019 04/30/2019 Inactive amlodipine 5 mg tablet RxNorm: 229561 TAKE 1 TABLET BY MOUTH EV EZRA02/19/2019 05/19/2019 Active Trulicity 0.75 mg/0.5 mL subcutaneous pen injector RxNorm: 1 588549 INJECT 1 DOSE SUB-Q ONCE WEEKLY 02/19/2019 03/18/2019 Inactive Lexapro 20 mg tablet RxNorm: 068174 1 TABLET(S) PO QD 01/04/201905/2019 Inactive lisinopril 40 mg tablet RxNorm: 336610 1 TABLET(S) PO QD 12/05/2018 0 04/03/2019 Inactive scopolamine 1 mg over 3 days transdermal patch RxNorm: 91171 2 1 Application Transdermal Q72H 11/27/2018 11/26/2018 Inactive scopolamine 1 mg over 3 days transdermal patch RxNorm: 91087 2 1 Application Transdermal Q72H 11/27/2018 11/27/2018 Inactive ondansetron HCl 4 mg tablet RxNorm: 182523 1 Tablet(s) Oral Q4H as needed for nausea 11/27/2018 11/27/2018 Inactive ondansetron HCl 4 mg tablet RxNorm: 686601 1 Tablet(s) Oral Q4H as needed for nausea 11/27/2018 11/26/2018 Inactive amlodipine 5 mg tablet RxNorm: 706443 1 TABLET(S) PO QD 11/20/2018 Inactive Xanax 0.25 mg tablet RxNorm: 471046 1 Tablet(s) PO as needed 2018 No Stop Date Active ProAir HFA 90 mcg/actuation aerosol inhaler RxNorm: 609782 2 Puff(s) INH Q4H as needed 10/31/2018 No Stop Date Active if insurance das s not cover, please switch to ventolin. prednisone 20 mg tablet RxNorm: 089241 1 Tablet(s) PO BID 10/31/2018 11/04/2018 Inactive Zithromax Z-Ab 250 mg tablet RxNorm: 029039 Tablet(s) take as directed PO 10/31/2018 01/22/2019 Inactive Trulicity 0.75 mg/0.5 mL subcutaneous pen injector RxNorm: 1 163418 1 Unit Dose SQ QW 10/31/2018 02/18/2019 Inactive Ozempic 0.25 mg or 0.5 mg (2 mg/1.5 mL) subcutaneous p en injector RxNorm: 1712845 0.5 Milligram(s) SQ QW 10/09/2018 10/30/2018 Inactive Ozempic 0.25 mg or 0.5 mg (2 mg/1.5 mL) subcutaneous p en injector RxNorm: 7275498 0.5 Gram(s) SQ QW 10/05/2018 10/08/2018 Inactive lisinopril 40 mg tablet RxNorm: 042129 1 Tablet(s) PO QD 09/18/2018 1 Inactive metformin 1,000 mg tablet RxNorm: 863061 1 TABLET(S) PO QD 09/07/19 19 03/04/2019 Inactive Trulicity 0.75 mg/0.5 mL subcutaneous pen injector RxNorm: 1 656615 0.75 Milligram(s) SQ QW Replaces Ozemic 08/28/2018 10/30/2018 Inactive replaces Ozempic Ozempic 0.25 mg or 0.5 mg (2 mg/1.5 mL) subcutaneous p en injector RxNorm: 1961673 0.5 Milligram(s) SQ WEEKLY 08/28/2018 10/05/2018 Inactive metformin 1,000 mg tablet RxNorm: 096563 1 Tablet(s) PO QD 08/24/1909/05/2018 Inactive Ozempic 0.25 mg or 0.5 mg (2 mg/1.5 mL) subcutaneous p en injector RxNorm: 2750959 0.5 Milligram(s) SQ WEEKLY 08/03/2018 08/27/2018 Inactive amlodipine 5 mg tablet RxNorm: 758559 1 Tablet(s) PO QD 07/25/2018 Inactive Lexapro 20 mg tablet RxNorm: 555695 1 Tablet(s) PO QD 07/10/201807/2018 Inactive lisinopril 40 mg tablet RxNorm: 858997 1 Tablet(s) PO QD 07/10/2018 0 09/07/2018 Inactive amlodipine 5 mg tablet RxNorm: 431315 1 Tablet(s) PO QD 06/22/2018 Inactive lisinopril 40 mg tablet RxNorm: 377712 1 Tablet(s) PO QD 06/22/2018 0 07/09/2018 Inactive lisinopril 20 mg tablet RxNorm: 344097 1 Tablet(s) PO QD 06/19/2018 0 06/21/2018 Inactive lisinopril 5 mg tablet RxNorm: 812050 1 Tablet(s) PO QD 06/13/2018 Inactive metformin 1,000 mg tablet RxNorm: 862367 Tablet(s) TABLET(S) 1 TABLET(S) PO QD 06/08/2018 08/22/2018 Inactive Tamiflu 75 mg capsule RxNorm: 008232 1 Capsule(s) PO BID 04/26/2018 0 04/30/2018 Inactive Tamiflu 75 mg capsule RxNorm: 427485 1 Capsule(s) PO BID 04/26/2018 0 04/25/2018 Inactive prednisone 10 mg tablet RxNorm: 939239 1 Tablet(s) PO TID 04/25/2018 04/29/2018 Inactive prednisone 20 mg tablet RxNorm: 362567 1 Tablet(s) PO BID 04/14/2018 04/20/2018 Inactive Augmentin 500 mg-125 mg tablet RxNorm: 722602 1 Tablet(s) PO BID 04/20/2018 Inactive metformin 1,000 mg tablet RxNorm: 403247 TABLET(S) 1 TABLET(S) PO Q D 03/09/2018 06/06/2018 Inactive celecoxib 200 mg capsule RxNorm: 268046 1 Capsule(s) PO BID for diana n 01/31/2018 03/01/2018 Inactive metformin 1,000 mg tablet RxNorm: 361285 1 Tablet(s) PO BID 018 No Stop Date Active Medrol (Ab) 4 mg tablets in a dose pack RxNorm: 077031 Tablet(s) PO take as directed 01/23/2018 01/30/2018 Inactive Lexapro 20 mg tablet RxNorm: 801381 Tablet(s) 1 TABLET(S) PO QD 06/21/2018 Inactive Lexapro 20 mg tablet RxNorm: 498582 Tablet(s) 1 TABLET(S) PO QD 07/201701/22/2018 Inactive metformin 1,000 mg tablet RxNorm: 443539 1 Tablet(s) PO BID 018 01/22/2018 Inactive Lexapro 20 mg tablet RxNorm: 711790 Tablet(s) 1 TABLET(S) PO QD 11/02/2017 Inactive metformin 1,000 mg tablet RxNorm: 133302 Tablet(s) 1 TABLET(S) PO Q D 09/22/2017 09/26/2017 Inactive Xanax 0.25 mg tablet RxNorm: 507823 1 Tablet(s) PO as needed 201710/30/2018 Inactive metformin 1,000 mg tablet RxNorm: 613569 Tablet(s) 1 TA BLET(S) PO QD NEEDS UPDATED LABS 09/06/2017 09/20/2017 Inactive metformin 1,000 mg tablet RxNorm: 802240 1 TABLET(S) PO QD NEED S UPDATED LABS 08/24/2017 09/05/2017 Inactive metformin 1,000 mg tablet RxNorm: 052369 1 Tablet(s) PO QD Need s updated labs 08/08/2017 08/22/2017 Inactive Lexapro 20 mg tablet RxNorm: 556974 1 TABLET(S) PO QD 07/17/201708/29 Inactive pseudoephedrine 30 mg tablet RxNorm: 2313625 1-2 Tablet(s) PO Q6H 0 07/05/2017 06/12/2018 Inactive Augmentin 875 mg-125 mg tablet RxNorm: 716064 1 Tablet(s) PO BID 07/14/2017 Inactive metformin 1,000 mg tablet RxNorm: 164854 1 Tablet(s) PO QD Need s updated labs 07/04/2017 08/08/2017 Inactive metformin 1,000 mg tablet RxNorm: 111217 1 Tablet(s) PO QD Need s updated labs 05/30/2017 07/04/2017 Inactive Levaquin 750 mg tablet RxNorm: 858485 1 Tablet(s) PO QD 03/04/2017 Inactive ProAir HFA 90 mcg/actuation aerosol inhaler RxNorm: 557395 2 Puff(s) INH Q4H as needed 03/04/2017 07/04/2017 Inactive if insurance das s not cover, please switch to ventolin. Tamiflu 75 mg capsule RxNorm: 427910 1 Capsule(s) PO QD 03/04/2017 Inactive metformin 1,000 mg tablet RxNorm: 065300 1 Tablet(s) PO QD 02/16/20 17 05/15/2017 Inactive Lexapro 20 mg tablet RxNorm: 829292 1 Tablet(s) PO QD 01/17/201707/2017 Inactive cephalexin 500 mg capsule RxNorm: 156373 1 Capsule(s) PO TID 201612/08/2016 Inactive pantoprazole 40 mg tablet,delayed release RxNorm: 561342 1 Tabl et(s) PO QD 11/16/2016 03/15/2017 Inactive metformin 1,000 mg tablet RxNorm: 983039 TAKE 1 TABLET BY MOUTH EVERY DAY 10/10/2016 02/15/2017 Inactive Flonase Allergy Relief 50 mcg/actuation nasal spray,suspensi on RxNorm: 7987936 2 Barre NASAL QHS 09/06/2016 11/15/2016 Inactive Singulair 10 mg tablet RxNorm: 988630 1 Tablet(s) PO QHS 09/06/2016 0 11/15/2016 Inactive Singulair 10 mg tablet RxNorm: 198341 1 Tablet(s) PO QHS 08/12/2016 0 09/05/2016 Inactive ProAir HFA 90 mcg/actuation aerosol inhaler RxNorm: 270866 1 Puff(s) INH Q4H as needed 08/12/2016 08/15/2016 Inactive Medrol (Ab) 4 mg tablets in a dose pack RxNorm: 456939 Tablet(s) PO As Directed 07/29/2016 08/15/2016 Inactive Lexapro 20 mg tablet RxNorm: 223729 1 Tablet(s) PO QD 07/06/201612/30 Inactive doxycycline hyclate 100 mg capsule RxNorm: 9298693 1 Capsule(s) PO BID 06/24/2016 06/23/2016 Inactive doxycycline hyclate 100 mg capsule RxNorm: 5819623 1 Capsule(s) PO BID 06/24/2016 07/03/2016 Inactive ProAir HFA 90 mcg/actuation aerosol inhaler RxNorm: 329859 1 Puff(s) INH Q4H as needed 06/23/2016 08/11/2016 Inactive prednisone 20 mg tablet RxNorm: 432368 1 Tablet(s) PO BID 06/23/2016 06/27/2016 Inactive metformin 1,000 mg tablet RxNorm: 171872 1 Tablet(s) PO QD 12/18/19 16 06/14/2016 Inactive Lexapro 20 mg tablet RxNorm: 557361 1 Tablet(s) PO QD 12/18/201510/2016 Inactive prednisone 20 mg tablet RxNorm: 751079 Take 3 tabs PO Q D x 3 days, then 2 tabs PO QD x 3 days, then 1 tab PO QD x 3 days 12/01/2015 12/10/2015 Inacti ve albuterol sulfate 2.5 mg/3 mL (0.083 %) solution for n ebulization RxNorm: 327387 3 Milliliter(s) INH Q4H as needed 12/01/2015 07/04/2017 Inactiv e Singulair 10 mg tablet RxNorm: 285919 1 Tablet(s) PO QHS No Start D ate 08/11/2016 Inactive Breo Ellipta 100 mcg-25 mcg/dose powder for inhalation RxNor m: 8443236 1 Puff(s) INH QD No Start Date 02/01/2017 Inactive Zyrtec 10 mg tablet RxNorm: 9499272 1 Tablet(s) PO QAM No Start Date 11/15/2016 Inactive Xanax 0.25 mg tablet RxNorm: 586504 1 Tablet(s) PO as needed No Sta rt Date 09/21/2017 Inactive metformin 1,000 mg tablet RxNorm: 959443 1 Tablet(s) PO QD No Start Date 12/17/2015 Inactive Singulair 10 mg tablet RxNorm: 200980 1 Tablet(s) PO QHS No Start D ate 11/15/2016 Inactive metformin 1,000 mg tablet RxNorm: 769670 1 Tablet(s) PO QD No Start Date 02/14/2017 Inactive metformin 1,000 mg tablet RxNorm: 555324 1 Tablet(s) PO BID No Star t Date 09/26/2017 Inactive Trulicity 0.75 mg/0.5 mL subcutaneous pen injector RxNorm: 1 241732 0.75 Milligram(s) SQ QW No Start Date 08/27/2018 Inactive Medrol (Ab) 4 mg tablets in a dose pack RxNorm: 228949 Tablet(s) PO As Directed No Start Date 07/28/2016 Inactive Lexapro 20 mg tablet RxNorm: 699759 1 Tablet(s) PO QD No Start Date 1 Inactive Lexapro 20 mg tablet RxNorm: 102591 1 Tablet(s) PO QD No Start Date 0 07/09/2018 Inactive Medication Administered No Medication Administered data Immunizations Vaccine Codes Date Status Tetanus, Diptheria, Pertussis CVX: 115 11/30/2016 Co mplete Pneumococcal CVX: 133 03/09/2016 Complete Results Observation Observation Code Item Item Code Result Date S ervice Location VIRAL HEPATITIS PROFILE #2 [id number] Hep A IgM Non-Reactive 06/20/2018 Unknown VIRAL HEPATITIS PROFILE #2 84345 Hep B Core IgM Non-Reac tive 06/20/2018 Unknown VIRAL HEPATITIS PROFILE #2 29179 Hepatitis C Ab Non-Reac tive 06/20/2018 Unknown VIRAL HEPATITIS PROFILE #2 18668 Hep Bs Ag Non-Reactive 06/20/2018 Unknown MEAN GLUC 2791400 Calc Mean Gluc 194 mg/dL 06/19/2018 Unkn own COMPREHENSIVE METABOLIC 20941 AST 94 U/L 2018 Unknown COMPREHENSIVE METABOLIC 34441 ALT 160 U/L 2018 Unknown COMPREHENSIVE METABOLIC 85755 BUN 9 mg/dL 2018 Unknown COMPREHENSIVE METABOLIC 13530 ALBUMIN 4.6 g/dL 2018 Unknown COMPREHENSIVE METABOLIC 61249 CHLORIDE 101 mmol/L 06/19 Unknown COMPREHENSIVE METABOLIC 09700 Bili Total 0.9 mg/dL 06/19 Unknown COMPREHENSIVE METABOLIC 89959 ALK PHOS 64 U/L 2018 Unknown COMPREHENSIVE METABOLIC 58178 SODIUM 136 mmol/L 06/19 Unknown COMPREHENSIVE METABOLIC 43176 CREATININE 0.58 mg/dL 05/30 Unknown COMPREHENSIVE METABOLIC 70058 CALCIUM 10.3 mg/dL 06/19 Unknown COMPREHENSIVE METABOLIC 66734 POTASSIUM 3.7 mmol/L 06/19 Unknown COMPREHENSIVE METABOLIC 28713 Total Protein 7.1 g/dL Unknown COMPREHENSIVE METABOLIC 77558 Glucose 187 mg/dL 2018 Unknown COMPREHENSIVE METABOLIC 83945 Bicarbonate 26 mmol/L 05/30 Unknown COMPREHENSIVE METABOLIC 36775 AGAP 9 mmol/L 2018 Unknown GLYCOSYLATED HEMOGLOBIN TEST 42907 Hgb A1c 89988-0 8.4 % 0 06/19/2018 Unknown COMPLETE BLOOD COUNT 4151655 WBC 6.2 10e9/L 06/20/19 19 Unknown COMPLETE BLOOD COUNT 9181843 RBC 4.70 10e12/L 2018 Unknown COMPLETE BLOOD COUNT 6123553 HEMOGLOBIN 13.4 g/dL 06/20/19 19 Unknown COMPLETE BLOOD COUNT 4272456 HEMATOCRIT 39.9 % 06/20/19 19 Unknown COMPLETE BLOOD COUNT 4682391 MCV 84.9 fL 9 Unknown COMPLETE BLOOD COUNT 2404296 MCH 28.5 pg 9 Unknown COMPLETE BLOOD COUNT 0128035 MCHC 33.6 g/dL 9 Unknown COMPLETE BLOOD COUNT 2353439 PLATELET COUNT 252 10e9/L Unknown COMPLETE BLOOD COUNT 7889332 Mean Plt Volume 12.2 fL Unknown COMPLETE BLOOD COUNT 4213416 Neut Auto 53.9 % 9 Unknown COMPLETE BLOOD COUNT 3620114 Lymph Auto 35.2 % 06/20/19 19 Unknown COMPLETE BLOOD COUNT 0836711 Nance Auto 7.1 % 9 Unknown COMPLETE BLOOD COUNT 6472820 RDW 14.1 % 9 Unknown COMPLETE BLOOD COUNT 7878341 Eos Auto 3.2 % 9 Unknown COMPLETE BLOOD COUNT 8975046 Baso Auto 0.6 % 9 Unknown COMPLETE BLOOD COUNT 5961384 Neutrophil Abs 3.34 10e9/L Unknown COMPLETE BLOOD COUNT 5124598 Lymphocyte Abs 2.18 10e9/L Unknown COMPLETE BLOOD COUNT 1912787 Monocyte Abs 0.44 10e9/L 05/30 Unknown COMPLETE BLOOD COUNT 5423136 Eosinophil Abs 0.20 10e9/L Unknown COMPLETE BLOOD COUNT 2274390 RDW-SD 42.7 fL 9 Unknown COMPLETE BLOOD COUNT [id number] Basophil Abs 0.04 10e9/L 05/30 Unknown THYROID STIMULATING HORMONE 71060 TSH 1.976 uIU/mL 06/19/2018 Unknown GFR CALC 3584889 GFR Non Afr Amr >60 mL/min 06/19/2018 Un known GFR CALC 8642779 GFR Afr Amr >60 mL/min 06/19/2018 Unknow n SURESWAB(R), BACTERIAL VAGINOSIS/VAGINITIS 68937 BV CATEGORY: TNP 09/27/2017 [facility] [address] [place] [address] SURESWAB(R), BACTERIAL VAGINOSIS/VAGINITIS 62243 LACTOBACILLUS S PECIES DNR 09/27/2017 [facility] [address] [place] [address] SURESWAB(R), BACTERIAL VAGINOSIS/VAGINITIS 54466 ATOPOBIUM VAGIN AE DNR 09/27/2017 [facility] [address] [place] [address] SURESWAB(R), BACTERIAL VAGINOSIS/VAGINITIS 93376 MEGASPHAERA SPE CIES DNR 09/27/2017 [facility] [address] [place] [address] SURESWAB(R), BACTERIAL VAGINOSIS/VAGINITIS 48105 GARDNERELLA VAG INALIS DNR 09/27/2017 [facility] [address] [place] [address] SURESWAB(R), BACTERIAL VAGINOSIS/VAGINITIS 68070 SURESWAB(R) TRICHOMONAS VAGINALIS RNA, QL TMA TNP 09/27/2017 [facility] [address] [place] [address] SURESWAB(R), BACTERIAL VAGINOSIS/VAGINITIS 43898 C. ALBICANS, DN A TNP 09/27/2017 [facility] [address] [place] [address] SURESWAB(R), BACTERIAL VAGINOSIS/VAGINITIS 19570 C. GLABRATA, DN A DNR 09/27/2017 [facility] [address] SURESWAB(R), BACTERIAL VAGINOSIS/VAGINITIS 17362 C. TROPICALIS, DNA DNR 09/27/2017 [facility] [place] [address] SURESWAB(R), BACTERIAL VAGINOSIS/VAGINITIS 49971 C. PARAPSILOSIS , DNA DNR 09/27/2017 [facility] [place] [address] THINPREP TIS AND HPV mRNA E6/E7 15080 REPORT STATUS: DNR 09/27/2017 [facility] [address] [place] [address] THINPREP TIS AND HPV mRNA E6/E7 57904 CLINICAL INFORMATION: 09/27/2017 [facility] [place] [address] THINPREP TIS AND HPV mRNA E6/E7 51722 LMP: 201709/27/2017 [facility] [place] [address] THINPREP TIS AND HPV mRNA E6/E7 82087 PREV. PAP: 09/27/2017 [facility] [place] [address] THINPREP TIS AND HPV mRNA E6/E7 08148 PREV. BX: 09/27/2017 [facility] [place] [address] THINPREP TIS AND HPV mRNA E6/E7 19616 SOURCE: Cerv ix 09/27/2017 [place] [address] [place] [address] THINPREP TIS AND HPV mRNA E6/E7 24463 STATEMENT OF ADEQUACY: 09/27/[address] [place] [address] [place] [address] THINPREP TIS AND HPV mRNA E6/E7 45429 GENERAL CATEGORIZATION: DNR 09/27/[address] [place] [address] [place] [address] THINPREP TIS AND HPV mRNA E6/E7 28610 INTERPRETATION/RESULT: 09/27/[address] [place] [address] [place] [address] THINPREP TIS AND HPV mRNA E6/E7 34463 INFECTION: DNR 09/27/2017 [facility] [place] [address] THINPREP TIS AND HPV mRNA E6/E7 51032 COMMENT: 09/27/2017 [facility] [place] [address] THINPREP TIS AND HPV mRNA E6/E7 73136 [employer] DIRECTOR: 09/27/2017 [facility] [place] [address] THINPREP TIS AND HPV mRNA E6/E7 68239 REVIEW [employer] SERVICES DIRECTOR: LORETTA 09/27/2017 [facility] [place] [address] THINPREP TIS AND HPV mRNA E6/E7 32874 PATHOLOGIST: KHLOE Srivastava 09/27/2017 [facility] [place] [address] THINPREP TIS AND HPV mRNA E6/E7 45741 COMMENT 09/27/2017 [facility] [place] [address] THINPREP TIS AND HPV mRNA E6/E7 61561 HPV mRNA E6/E7 Not Detected 09/27/2017 [facility] [place] [address] CULTURE, GENITAL 44164 CULTURE, GENITAL SEE NOTE [place] [address] CULTURE, THROAT 53866 CULTURE, THROAT SEE NOTE 07/30 [facility] [address] [place] [address] Procedures Procedure Codes Date INFLUENZA ASSAY W/OPTIC CPT-4: 16249 03/26/2019 DEXAMETHASONE SODIUM PHOS CPT-4: J1100 03/26/2019 THER/PROPH/DIAG INJ SC/IM CPT-4: 62689 03/26/2019 TRIAMCINOLONE ACET INJ NOS CPT-4: J3301 03/26/2019 DRAIN/INJECT JOINT/BURSA CPT-4: 44423 01/23/2019 ROUTINE VENIPUNCTURE CPT-4: 76780 06/19/2018 COMPLETE CBC W/AUTO DIFF WBC CPT-4: 03684 06/19/2018 COMPREHEN METABOLIC PANEL CPT-4: 71173 06/19/2018 A1C HPLC CPT-4: 83791 06/19/2018 ASSAY THYROID STIM HORMONE CPT-4: 98577 06/19/2018 URINALYSIS NONAUTO W/O SCOPE CPT-4: 16730 06/19/2018 ACUTE HEPATITIS PANEL CPT-4: 89897 06/19/2018 INFLUENZA ASSAY W/OPTIC CPT-4: 04876 04/26/2018 STREP A ASSAY W/OPTIC CPT-4: 12429 04/25/2018 THROAT CULTURE CPT-4: 73782 04/25/2018 CEFTRIAXONE SODIUM INJECTION CPT-4: J0696 11/10/2017 DEXAMETHASONE SODIUM PHOS CPT-4: J1100 11/10/2017 THER/PROPH/DIAG INJ SC/IM CPT-4: 84508 11/10/2017 TRIAMCINOLONE ACET INJ NOS CPT-4: J3301 11/10/2017 OCCULT BLOOD FECES CPT-4: 64138 09/22/2017 SURESWAB(R), BACTERIAL VAGINOSIS/VAGINITIS CPT-4: 52367 09/22/2017 CULTURE, GENITAL CPT-4: 69664 09/22/2017 TDAP VACCINE 7 YRS/> IM CPT-4: 85582 11/30/2016 IMMUNIZATION ADMIN CPT-4: 50336 11/30/2016 REMOVAL OF FOOT FOREIGN BODY CPT-4: 20119 11/29/2016 REMOVAL OF SKIN TAGS <W/15 CPT-4: 67030 10/05/2016 CULTURE, THROAT CPT-4: 19391 08/16/2016 PNEUMOCOCCAL VACC 13 AYSHA IM CPT-4: 65539 03/09/2016 IMMUNIZATION ADMIN CPT-4: 06607 03/09/2016 THER/PROPH/DIAG INJ SC/IM CPT-4: 12713 12/11/2015 TRIAMCINOLONE ACET INJ NOS CPT-4: J3301 12/11/2015 DEXAMETHASONE SODIUM PHOS CPT-4: J1100 12/11/2015 Vital Signs Date Vital 04/30/2019 Blood Pressure 1: 129/82 Code: 8480-6 Heart Rate 1: 88 bpm Respiratory Rate: 17 bpm SpO2: 97% Temperature: 36.8 (C) / 98.2 (F) We ight: 229 lbs 03/26/2019 Blood Pressure 1: 137/82 Code: 8480-6 Heart Rate 1: 18 bpm Respiratory Rate: 16 bpm SpO2: 99% Temperature: 36.6 (C) / 97.8 (F) We ight: 228 lbs 01/23/2019 Blood Pressure 1: 126/80 Code: 8480-6 Heart Rate 1: 68 bpm SpO2: 98% Temperature: 36.8 (C) / 98.2 (F) Weight: 223 lbs 10/31/2018 Blood Pressure 1: 130/72 Code: 8480-6 Heart Rate 1: 81 bpm SpO2: 98% Temperature: 36.9 (C) / 98.5 (F) Weight: 221 lbs 08/08/2018 Blood Pressure 1: 122/78 Code: 8480-6 Heart Rate 1: 80 bpm Respiratory Rate: 20 bpm SpO2: 97% Temperature: 36.9 (C) / 98.4 (F) We ight: 214 lbs 07/06/2018 Blood Pressure 1: 126/84 Code: 8480-6 BMI: 39.9 Code: 50411-3 Heart Rate 1: 80 bpm Height: 5'2" Respiratory Rate: 20 bpm SpO2: 98% Tempera ture: 37.2 (C) / 98.9 (F) Weight: 218 lbs 06/19/2018 Blood Pressure 1: 165/101 Code: 8480-6 B lood Pressure 2: 160/99 Code: 8480-6 Heart Rate 1: 63 bpm SpO2: 98% Temperature: 37.1 (C) / 98. 8 (F) Weight: 220 lbs 06/13/2018 Blood Pressure 1: 154/100 Code: 8480-6 Heart Rat e 1: 68 bpm Respiratory Rate: 18 bpm SpO2: 97% Temperature: 36.9 (C) / 98.5 (F) We ight: 218 lbs 04/25/2018 Blood Pressure 1: 130/90 Code: 8480-6 Heart Rate 1: 80 bpm Respiratory Rate: 20 bpm SpO2: 96% Temperature: 36.4 (C) / 97.5 (F) We ight: 222 lbs 04/14/2018 Blood Pressure 1: 126/82 Code: 8480-6 BMI: 40.6 Code: 47103-5 Heart Rate 1: 72 bpm Height: 5'2" SpO2: 96% Temperature: 37.0 (C) / 98.6 (F) Weight: 222 lbs 01/31/2018 Blood Pressure 1: 132/78 Code: 8480-6 Heart Rate 1: 80 bpm Respiratory Rate: 20 bpm Temperature: 36.9 (C) / 98.4 (F) 01/23/2018 Blood Pressure 1: 130/82 Code: 8480-6 Heart Rate 1: 68 bpm Respiratory Rate: 20 bpm SpO2: 97% Temperature: 36.7 (C) / 98.1 (F) We ight: 229 lbs 11/10/2017 Blood Pressure 1: 124/68 Code: 8480-6 BMI: 41.7 Code: 07239-8 Heart Rate 1: 66 bpm Height: 5'2" Respiratory Rate: 20 bpm SpO2: 98% Tempera ture: 36.2 (C) / 97.2 (F) Weight: 228 lbs 09/22/2017 Blood Pressure 1: 142/80 Code: 8480-6 BMI: 41.3 Code: 52996-7 Heart Rate 1: 60 bpm Height: 5'2" Respiratory Rate: 20 bpm SpO2: 98% Tempera ture: 36.3 (C) / 97.3 (F) Weight: 226 lbs 07/05/2017 Blood Pressure 1: 129/82 Code: 8480-6 BMI: 42.3 Code: 61488-7 Heart Rate 1: 60 bpm Height: 5'2" SpO2: 97% Temperature: 36.4 (C) / 97.6 (F) Weight: 231 lbs 03/04/2017 Blood Pressure 1: 142/80 Code: 8480-6 BMI: 42.4 Code: 12071-5 Heart Rate 1: 74 bpm Height: 5'2" Respiratory Rate: 24 bpm SpO2: 97% Tempera ture: 36.4 (C) / 97.6 (F) Weight: 232 lbs 02/02/2017 Blood Pressure 1: 146/82 Code: 8480-6 BMI: 42.4 Code: 37246-7 Heart Rate 1: 84 bpm Height: 5'2" Respiratory Rate: 20 bpm SpO2: 98% Tempera ture: 36.6 (C) / 97.9 (F) Weight: 232 lbs 11/29/2016 Blood Pressure 1: 126/78 Code: 8480-6 Heart Rate 1: 76 bpm Height: 5'2" Respiratory Rate: 20 bpm SpO2: 96% Temperature: 36 .9 (C) / 98.4 (F) 11/16/2016 Blood Pressure 1: 136/94 Code: 8480-6 BMI: 42.6 Code: 76045-8 Heart Rate 1: 68 bpm Height: 5'2" Respiratory Rate: 20 bpm SpO2: 96% Tempera ture: 36.9 (C) / 98.4 (F) Weight: 233 lbs 10/05/2016 Blood Pressure 1: 112/78 Code: 8480-6 BMI: 41.5 Code: 46680-9 Heart Rate 1: 80 bpm Height: 5'2" Respiratory Rate: 20 bpm SpO2: 97% Tempera ture: 36.8 (C) / 98.2 (F) Weight: 227 lbs 09/06/2016 Blood Pressure 1: 126/82 Code: 8480-6 BMI: 42.4 Code: 45959-3 Heart Rate 1: 64 bpm Height: 5'2" Respiratory Rate: 20 bpm SpO2: 98% Tempera ture: 37.0 (C) / 98.6 (F) Weight: 232 lbs 08/16/2016 Blood Pressure 1: 136/82 Code: 8480-6 BMI: 42.1 Code: 43551-8 Heart Rate 1: 72 bpm Height: 5'2" Respiratory Rate: 20 bpm SpO2: 98% Tempera ture: 36.6 (C) / 97.9 (F) Weight: 230 lbs 06/23/2016 Blood Pressure 1: 118/76 Code: 8480-6 Heart Rate 1: 82 bpm Height: Respiratory Rate: 24 bpm SpO2: 96% Temperature: 36.2 (C) / 97.2 (F) We ight: 12/18/2015 Blood Pressure 1: 116/82 Code: 8480-6 Heart Rate 1: 68 bpm Height: 5'2" Respiratory Rate: 20 bpm SpO2: 97% Temperature: 36.8 (C) / 98.2 (F) Weight: 12/11/2015 Blood Pressure 1: 144/80 Code: 8480-6 BMI: 40.4 Code: 08735-9 Heart Rate 1: 92 bpm Height: 5'2" Respiratory Rate: 20 bpm SpO2: 95% Tempera ture: 36.8 (C) / 98.2 (F) Weight: 221 lbs 12/08/2015 Blood Pressure 1: 124/78 Code: 8480-6 Heart Rate 1: 108 bpm Height: 5'2" Respiratory Rate: 22 bpm SpO2: 95% Temperature: 36.2 (C) / 97.2 (F) Weight: 12/01/2015 Blood Pressure 1: 124/78 Code: 8480-6 BMI: 40.4 Code: 14055-4 Heart Rate 1: 92 bpm Height: 5'2" Respiratory Rate: 24 bpm SpO2: 93% Tempera ture: 35.6 (C) / 96.0 (F) Weight: 221 lbs Functional Status No Functional Status data Reason For Visit Reason For Visit Effective Dates Notes anxiety 04/30/2019 pt would also like t o discuss her current prescription for Trulicity. Pt states that her copay with the coupon card provided has now been increased to $400 per month. Pt would like to know if we could provide samples or prescribe alternative that is more affordable. headache 03/26/2019 knee pain 01/23/2019 headache 10/31/2018 follow up 08/08/2018 follow up 07/06/2018 fatigue 06/19/2018 dizziness 06/13/2018 started yesterday at 2:30 lab draw 04/26/2018 here for flu swab cough 04/25/2018 sore throat 04/14/2018 Urgent Care treated her with Zpack and finished yesterday however she wasn't checked for flu or strep follow up 01/31/2018 lower leg pain 01/23/2018 right leg cough 11/10/2017 patient was seen at [facility] and given Levaquin and 5 day steroid well woman exam (40-65 years) 09/22/[address] Mamm[facility] 2016 cough 07/05/2017 mucus, runny nose follow up 03/04/2017 Patient was placed on Medrol Dose Pack and Antibiotic (unable to remember). follow up 02/02/2017 injection(s) 11/30/2016 TDAP foot pain 11/29/2016 follow up 11/16/2016 ENThad her stop flon ase, zyrtec and singulair prior to allergy testing and hasn't restarted anything since it wasn't helping acrochordon (skin tags) 10/05/2016 follow up 09/06/2016 follow up 08/16/2016 Still taking proair, singulair and zyrtec cough 06/23/2016 injection(s) 03/09/2016 Prevnar 13 follow up 12/18/2015 1wk fwup follow up 12/11/2015 Patient has finished round of doxycycline, levaquin and prednisone follow up 12/08/2015 1 Week ~generic 12/01/2015 Establishing care Encounters Encounter Performer Location Codes Date ([id number]) OFFICE/OUTPATIENT VISIT EST Diagnosis: Type 2 diabetes mellitus with hyperglycemia[ICD10: E11.65] Diagnosis: Major depressive disorder, single episode, unspecified[ICD10: F32.9] Diagnosis: Anxiety and depression[ICD10: F41.9] Lisbeth ORNELAS BRADEN [employer] CPT-4: 99750 04/30/2019 ([id number]) OFFICE/OUTPATIENT VISIT EST Diagnosis: Upper respiratory infection[ICD10: J06.9] Diagnosis: Viral syndrome[ICD10: B34.9] Lisbeth Smithdi NIRMALA [employer] CPT-4: 69671 03/26/2019 ([id number]) OFFICE/OUTPATIENT VISIT EST Diagnosis: Acute upper respiratory infection, unspecified[ICD10: J06.9] Diagnosis: Generalized anxiety disorder[ICD10: F41.1] Diagnosis: Type 2 diabetes mellitus with hyperglycemia[ICD10: E11.65] Diagnosis: Encounter for therapeutic drug level monitoring[ICD10: Z51.81] Lisbeth Smithdi NIRMALA [employer] CPT-4: 10202 10/31/2018 ([id number]) OFFICE/OUTPATIENT VISIT EST Diagnosis: Type 2 diabetes mellitus with hyperglycemia[ICD10: E11.65] Diagnosis: Essential (primary) hypertension[ICD10: I10] Nirmala JARAMILLO DO [facility] CPT-4: 36260 08/08/2018 ([id number]) OFFICE/OUTPATIENT VISIT EST Diagnosis: Essential (primary) hypertension[ICD10: I10] Diagnosis: Type 2 diabetes mellitus with hyperglycemia[ICD10: E11.65] Diagnosis: Other fatigue[ICD10: R53.83] Nirmala JARAMILLO [email or web address] [facility] CPT-4: 01088 07/06/2018 ([id number]) OFFICE/OUTPATIENT VISIT EST Diagnosis: Dizziness and giddiness[ICD10: R42] Diagnosis: Elevated blood-pressure reading, without diagnosis of hypertension[ICD10: R03.0] Shell JARAMILLO DO [facility] CPT- 4: 10971 06/19/2018 ([id number]) OFFICE/OUTPATIENT VISIT EST Diagnosis: Essential (primary) hypertension[ICD10: I10] Diagnosis: Dizziness and giddiness[ICD10: R42] Shell JARAMILLO [email or web address] [facility] CPT-4: 84045 06/13/2018 ([id number]) NURSE/OUTPATIENT VISIT EST Diagnosis: Influenza due to identified novel influenza A virus with other manifestations[ICD10: J09.X9] Nirmala JARAMILLO [email or web address] [facility] CPT-4: 98000 04/26/2018 OFFICE/OUTPATIENT VISIT EST Diagnosis: Pain in throat[ICD10: R07.0] Diagnosis: Acute pharyngitis, unspecified[ICD10: J02.9] Shell JARAMILLO DO [facility] CPT-4: 26740 04/25/2018 ([id number]) OFFICE/OUTPATIENT VISIT EST Diagnosis: Acute sinusitis, unspecified[ICD10: J01.90] Diagnosis: Paresthesia of skin[ICD10: R20.2] Nirmala JARAMILLO [email or web address] [facility] CPT-4: 34270 04/14/2018 ([id number]) OFFICE/OUTPATIENT VISIT EST Diagnosis: Pain in right leg[ICD10: M79.604] Diagnosis: Sciatica, right side[ICD10: M54.31] Nirmala JARAMILLO DO [employer] CPT-4: 93642 01/31/2018 ([id number]) OFFICE/OUTPATIENT VISIT EST Diagnosis: Pain in right leg[ICD10: M79.604] Lisbeth JARAMILLO DO [employer] CPT-4: 81719 01/23/2018 ([id number]) OFFICE/OUTPATIENT VISIT EST Diagnosis: Acute bronchitis, unspecified[ICD10: J20.9] Lisbeth JARAMILLO DO [employer] CPT-4: 63947 11/10/2017 ([id number]) PREV VISIT EST AGE 40-64 Diagnosis: Encounter for screening for malignant neoplasm of colon[ICD10: Z12.11] Diagnosis: Encounter for general adult medical examination without abnormal findings[ICD10: Z00.00] Diagnosis: Encounter for screening mammogram for malignant neoplasm of breast[ICD10: Z12.31] Diagnosis: Encounter for gynecological examination (general) (routine) with abnormal findings[ICD10: Z01.411] Diagnosis: Polycystic ovarian syndrome[ICD10: E28.2] Diagnosis: Generalized anxiety disorder[ICD10: F41.1] Diagnosis: Impaired glucose tolerance (oral)[ICD10: R73.02] Diagnosis: Abnormal levels of other serum enzymes[ICD10: R74.8] Diagnosis: Nonalcoholic steatohepatitis (MOORE)[ICD10: K75.81] Lisbeth JARAMILLO [facility] CPT-4: 84791 09/22/2017 ([id number]) OFFICE/OUTPATIENT VISIT EST Diagnosis: Acute sinusitis, unspecified[ICD10: J01.90] Lisbeth JARAMILLO [facility] CPT-4: 29468 07/05/2017 OFFICE/OUTPATIENT VISIT EST Diagnosis: Pneumonia, unspecified organism[ICD10: J18.9] Lisbeth JARAMILLO DO [employer] CPT-4: 04866 03/04/2017 ([id number]) OFFICE/OUTPATIENT VISIT EST Diagnosis: Polycystic ovarian syndrome[ICD10: E28.2] Diagnosis: Abnormal levels of other serum enzymes[ICD10: R74.8] Diagnosis: Nonalcoholic steatohepatitis (MOORE)[ICD10: K75.81] Diagnosis: Impaired glucose tolerance (oral)[ICD10: R73.02] Nirmala JARAMILLO DO [facility] CPT-4: 19660 02/02/2017 ([id number]) OFFICE/OUTPATIENT VISIT EST Diagnosis: VACCINE FOR TDAP[ICD10: Z23] Nirmala JARAMILLO DO [facility] CPT-4: 23858 11/30/2016 ([id number]) OFFICE/OUTPATIENT VISIT EST Diagnosis: Cough[ICD10: R05] Diagnosis: Abnormal levels of other serum enzymes[ICD10: R74.8] Diagnosis: Family history of other endocrine, nutritional and metabolic diseases[ICD10: Z83.49] Nirmala JARAMILLO DO [facility] CPT-4: 22546 11/16/2016 ([id number]) OFFICE/OUTPATIENT VISIT EST Diagnosis: Cough[ICD10: R05] Diagnosis: Other seasonal allergic rhinitis[ICD10: J30.2] Diagnosis: Abnormal levels of other serum enzymes[ICD10: R74.8] Nirmaal JARAMILLO DO [facility] CPT-4: 87890 09/06/2016 ([id number]) OFFICE/OUTPATIENT VISIT EST Diagnosis: Cough[ICD10: R05] Diagnosis: Polycystic ovarian syndrome[ICD10: E28.2] Nirmala JARAMILLO [email or web address] [facility] CPT-4: 49153 08/16/2016 ([id number]) OFFICE/OUTPATIENT VISIT EST Diagnosis: Acute bronchitis, unspecified[ICD10: J20.9] Diagnosis: Acute upper respiratory infection, unspecified[ICD10: J06.9] Ananya Lopez NIRMALA JARAMILLO [email or web address] [facility] CPT-4: 76916 06/23/2016 ([id number]) OFFICE/OUTPATIENT VISIT EST Diagnosis: PNEUMOCOCCAL VACCINE[ICD10: Z23] Nirmala JARAMILLO DO [facility] CPT-4: 39830 03/09/2016 ([id number]) OFFICE/OUTPATIENT VISIT EST Diagnosis: Pneumonia, unspecified organism[ICD10: J18.9] Diagnosis: Polycystic ovarian syndrome[ICD10: E28.2] Diagnosis: Generalized anxiety disorder[ICD10: F41.1] Nirmala JARAMILLO [facility] CPT-4: 83915 12/18/2015 ([id number]) OFFICE/OUTPATIENT VISIT EST Diagnosis: Cough[ICD10: R05] Diagnosis: Acute bronchospasm[ICD10: J98.01] Nirmala JARAMILLO [facility] CPT-4: 75266 12/11/2015 ([id number]) OFFICE/OUTPATIENT VISIT EST Diagnosis: Pneumonia, unspecified organism[ICD10: J18.9] Ananya JARAMILLO [facility] CPT-4: 82159 12/08/2015 OFFICE/OUTPATIENT VISIT NEW Diagnosis: Pneumonia, unspecified organism[ICD10: J18.9] Ananya JARAMILLO DO [facility] CPT-4: 77765 12/01/2015 Plan of Care Planned Activity Notes Codes Status Date Visit Diagnosis Plan: Type 2 diabetes mellitus with hy perglycemia Discussion: will start victoza to take as directed with instructions on use in office. coupon card given to patient and instructed to call office if too expensive and will try other option. ICD-9 : 250.02 ICD-10 : E11.65 04/30/2019 Visit Diagnosis Plan: Anxiety and depression Discussio n: will add on rexulti at 1 mg daily. keep lexapro at current dose. instructed to call office in 1 month for medication efficacy. patient is having hysterectomy may 17 so informed patient to just call office so she can rest more completely at home. will then have her follow up in office after that. ICD-9 : 300.00 ICD-10 : F41.9 04/30/2019 Patient Education: Rexulti- [employer] Coupon [id number] https://www.[employer]/samplemd/resources/getResource/61/9d25us19-85o9-4un9-79 Completed 04/30/2019 Patient Education: Victoza 2-Ab- [employer] Coupon 10 [id number] https://www.[employer]/samplemd/resources/getResource/61/ygb30ngn-1wry-20v0-e7 Completed 04/30/2019 Visit Diagnosis Plan: Upper respiratory infection Disc ussion: influenza neg. kenalog/dexa 40/4 given in office due to severity of symptoms and patient's hx of pneumonia. instructed to call office tomorrow with worsening symptoms, otherwise push fluids and cough syrup prn. ICD-9 : 465.9 ICD-10 : J06.9 03/26/2019 Appointment: Lisbeth Kruger [address] [place], [place] [address]a [address] ACUTE ILLNESS 03/26/2019 Visit Diagnosis Plan: Tibial collateral bursitis of ri ght knee Discussion: Bursa injection as above PELON wrap/rest Notify in 1-2 weeks how knee is doing ICD-9 : 726.62 ICD-10 : M76.41 01/23/2019 Appointment: Nirmala Jaramillo WPtel: [phone] ACUTE ILLNESS 01/23/2019 Care Plan: Referral Order SNOMED-CT : 30 [id number] Pending 01/23/2019 Visit Diagnosis Plan: Type 2 diabetes mellitus with hy perglycemia Discussion: dc ozempic and will prescribe trulicity. coupon card given to patient. educated patient on how to use at home with demo pen and patient verbalized understanding. instructed patient to call office if medication is still too expensive and will then try bydureon or a daily injectable and patient verbalized understanding. due for updated fasting labs. ICD-9 : 250.02 ICD-10 : E11.65 10/31/2018 Visit Diagnosis Plan: Acute upper respiratory infectio n, unspecified Discussion: zpack and prednisone prescribed for symptom management. discussed that prednisone will increase blood sugars so to monitor and improve diet while on prednisone. patient lost her rescue inhaler when she was moving so will refill that to take as needed for wheezing, dyspnea. ICD-9 : 465.9 ICD-10 : J06.9 10/31/2018 Visit Diagnosis Plan: Generalized anxiety disorder Dis cussion: stable on xanax, refilled at this time. ICD-9 : 308.0 ICD-10 : F41.1 10/31/2018 Appointment: Lisbeth Kruger [address] [place], [place] [address] [address] ACUTE ILLNESS 10/31/2018 Patient Education: Trulicity- Opt[employer] Coupon [id number] https://www.[employer]/sampleNOW! [employer]ations/resources/getResource/61/k389i4o6-g333-5h96-bv Completed 10/31/2018 Patient Education: Xanax- Opt[employer] Coupon [id number] https://www.[employer]NOW[employer]/resources/getResource/61/kx61238n-3345-87e9-fb b2-003a086o1953.pdf Completed 10/31/2018 Patient Education: prednisone- OptimizeRX Coupon [id number] https://www.[employer]/sampleNOW[employer]/resources/getResource/61/106tq876-7668-23i4-85 Completed 10/31/2018 Patient Education: ProAir HFA- OptimizeRX Coupon [id number] https://www.[employer]/sampleNOW! [employer]/resources/getResource/61/6oh31391-69v8-4040-60 Completed 10/31/2018 Visit Diagnosis Plan: Essential (primary) hypertension Discussion: Stable ICD-9 : 401.9 ICD-10 : I10 08/08/2018 Visit Diagnosis Plan: Type 2 diabetes mellitus with hy perglycemia Discussion: Lab discussed Accuchecks daily Continue current meds Check CMP and HbA1C end of September then fwup ICD-9 : 250.02 ICD-10 : E11.65 08/08/2018 Appointment: [facility]irm[id number] [facility] 08/08/2018 Visit Diagnosis Plan: Essential (primary) hypertension Discussion: Improved with last med adjustment BP and pulse check in 2 weeks ICD-9 : 401.9 ICD-10 : I10 07/06/2018 Visit Diagnosis Plan: Type 2 diabetes mellitus with hy perglycemia Discussion: Lab discussed Accuchecks daily Continue current meds Check CMP and HbA1C in 3mos then fwup Follow Up: 1 months ICD-9 : 250.02 ICD-10 : E11.65 07/06/2018 Visit Diagnosis Plan: Other fatigue Discussion: Discus sed may be from new meds/body adjusting Add Children[facility] MV with iron, Vitamin D 1000u daily and Magnesium oxide 400mg daily due to HAs ICD-9 : 780.79 ICD-10 : R53.83 07/06/2018 Appointment: Nirmala Jaramillo WPtel: [address] [place] [address] FOLLOW UP 07/06/2018 Appointment: Nirmala Jaramillo WPtel: [address] [place] [address] [place] Consult 06/22/2018 Patient Education: lisinopril- OptimizeRX Coupon [id number] https://www.[employer]/samplemd/resources/getResource/61/004d11j6-atg8-2465-ds Completed 06/22/2018 Visit Diagnosis Plan: Essential (primary) hypertension Discussion: Increased lisinopril from 5 QD to 20 mg QD. Labs today- CBC, CMP, TSH, A1C. UA today- trace protein. hematuria (patient on period). ICD-9 : 401.9 ICD-10 : I10 06/19/2018 Visit Diagnosis Plan: Dizziness and giddiness Discussi on: Recommend scheduling appt with counseling services manager. ICD-9 : 780.4 ICD-10 : R42 06/19/2018 Appointment: Shell Vega [facility] [address] FOLLOW UP 06/19/2018 Visit Diagnosis Plan: Essential (primary) hypertension Discussion: Lisinopril 5 mg PO QD- return for BP check in 2 weeks. ICD-9 : 401.9 ICD-10 : I10 06/13/2018 Visit Diagnosis Plan: Dizziness and giddiness Discussi on: Most likely related to HTN. Advised to notify clinic if dizziness worsens or does not subside. Return to clinic LETY or go to ED with severe headache, vision changes, dyspnea, chest pain. Patient states understanding of all instruction. ICD-9 : 780.4 ICD-10 : R42 06/13/2018 Appointment: Shell Vega [facility] [address] ACUTE ILLNESS 06/13/2018 Appointment: Nirmala Jaramillo WPtel: [address] [place] [address] FLU SWAB 04/26/2018 Visit Diagnosis Plan: Pain in throat Discussion: Rapid Strep A- negative Throat culture- pending. Will call patient with results. Prednisone 10 mg TID x 5 days. Supportive care- fluids, tylenol for pain, humidified air. ICD-9 : 784.1 ICD-10 : R07.0 04/25/2018 Appointment: Shell Vega [address] [place] [address] ACUTE ILLNESS 04/25/2018 Visit Plan: Saline nasal flushes prn. Ty lenol/Motrin prn headache. Notify if persists/symptoms worsening. 04/14/2018 Visit Diagnosis Plan: Paresthesia of skin Discussion: Carpal tunnel wrist splints Will see if prednisone helps Discussed EMGs if persists ICD-9 : 782.0 ICD-10 : R20.2 04/14/2018 Visit NOS Plan: Plan Notes: Saline nasal flu shes prn. Tyle... 04/14/2018 Visit Diagnosis Plan: Acute sinusitis, unspecified Dis cussion: Augmentin and prednisone Humidifier ICD-9 : 461.9 ICD-10 : J01.90 04/14/2018 Appointment: Nirmala Jaramillo WPtel: [address] [place] [address] ACUTE ILLNESS 04/14/2018 Patient Education: prednisone- OptimizeRX Coupon [id number] https://www.[employer]/samplemd/resources/getResource/61/0nzp69qq-j5u9-24v5-j6 Completed 04/14/2018 Visit Diagnosis Plan: Pain in right leg Discussion: Ch dickson right tib/fib x-ray and start celebrex May need PT ICD-9 : 729.5 ICD-10 : M79.604 01/31/2018 Visit Diagnosis Plan: Sciatica, right side Discussion: Check L/S spine x-ray ICD-9 : 724.3 ICD-10 : M54.31 01/31/2018 Appointment: Nirmala Jaramillo WPtel: [facility] [place][note 2][address] FOLLOW UP 01/31/2018 Care Plan: X-RAY EXAM L-S SPINE 2/3 VWS LOINC : 83026-1 Pending 01/31/2018 Care Plan: X-RAY EXAM OF LOWER LEG LOINC : 38681-0 Pending 01/31/2018 Visit Diagnosis Plan: Pain in right leg Discussion: me drol pack prescribed for symptom management. instructed to purchase knee brace to be worn during day and elevate when seated. pennsaid samples given to patient with instructions on use bid for 1 week. call in one week with how she's feeling and may need studies completed. she verbalized understanding. ICD-9 : 729.5 ICD-10 : M79.604 01/23/2018 Appointment: Lisbeth Kruger [address] [place] [address] ACUTE ILLNESS 01/23/2018 Visit Diagnosis Plan: Acute bronchitis, unspecified Di scussion: sent for stat xray of chest. 40 mg kenalog/4 mg dexa given in clinic. rocephin given as well. instructed to finish out levaquin and inhaler every 4 hours prn cough/dyspnea. increase fluid intake and rest often. perform deep breathing exercises at home to prevent worsening infection. will review xray and may need additional injections. ICD-9 : 466.0 ICD-10 : J20.9 11/10/2017 Appointment: Lisbeth Kruger [address] [place] [address] ACUTE ILLNESS 11/10/2017 Patient Education: Patient Medication Summary Completed 11/10/2017 Care Plan: CHEST X-RAY 2VW FRONTAL&LATL LOINC : 70232-9 Pending 11/10/2017 Patient Education: Patient Medication Summary Completed 09/26/2017 Care Plan: A1C HPLC LOINC : 91813-3 Pending 09/26/2017 Visit Diagnosis Plan: Encounter for gene [facility] adult medical examination without abnormal findings Discussion: fasting blood work ordered t o be obtained at [facility] in the next few days when fasting. ICD-9 : V70.9 ICD-10 : Z00.00 09/22/2017 Visit Diagnosis Plan: Encounter for screening for cindy gnant neoplasm of colon Discussion: rectal exam, ob stool obtained. negative for blood. ICD-9 : V76.51 ICD-10 : Z12.11 09/22/2017 Visit Diagnosis Plan: Encounter for gyne cological examination (general) (routine) with abnormal findings Discussion: thick cervical drainage note d during exam. culture to be completed. ICD-9 : V72.31 ICD-10 : Z01.411 09/22/2017 Visit Diagnosis Plan: Impaired glucose tolerance (oral ) Discussion: metformin daily. will update fasting labs and patient to have completed this week or first part of next. ICD-9 : 790.22 ICD-10 : R73.02 09/22/2017 Visit Diagnosis Plan: Generalized anxiety disorder Dis cussion: stable on lexapro but xanax refilled for #15 to only take as directed. ICD-9 : 308.0 ICD-10 : F41.1 09/22/2017 Visit Diagnosis Plan: Encounter for scre ening mammogram for malignant neoplasm of breast Discussion: mammogram ordered to be comp leted at [facility]. breast exam performed in office. ICD-9 : V76.11 ICD-10 : Z12.31 09/22/2017 Appointment: Lisbeth Kruger [employer] [address] Annual Well Visit 09/22/2017 Patient Education: Patient Medication Summary Completed 09/22/2017 Visit Diagnosis Plan: Acute sinusitis, unspecified Dis cussion: augmentin bid for 10 days. pseudoephedrine prn for congestion. increase fluid intake. call with worsening symptoms this week, otherwise, call clinic next week if no improvement. instructed to take probiotic bid to prevent yeast infections/GI upset. ICD-9 : 461.9 ICD-10 : J01.90 07/05/2017 Appointment: Lisbeth Kruger [place] [id number] ACUTE ILLNESS 07/05/2017 Patient Education: Patient Medication Summary Completed 07/05/2017 Visit Diagnosis Plan: Pneumonia, unspecified organism Discussion: instructed to dc current antibiotic which was prescribed from urgent care and start levaquin. inhaler as needed for shortness of breath or chest pain. patient's diagnosed with influenza a so tamiflu prescribed for prophylaxis. call or rtc next week if no improvement. ICD-9 : 486 ICD-10 : J18.9 03/04/2017 Appointment: Lisbeth Kruger [employer] [place] [phone] FOLLOW UP 03/04/2017 Patient Education: Patient Medication Summary Completed 03/04/2017 Visit Diagnosis Plan: Impaired glucose tolerance (oral ) Discussion: Continue metformin Lifestyle change--diet/exercise/weight loss Follow Up: 3 months ICD-9 : 790.22 ICD-10 : R73.02 02/02/2017 Visit Diagnosis Plan: Abnormal levels of other serum e nzymes Discussion: Awaiting Hepatitis profile results See GI for evaluation to assess for MOORE/fibrosis and if needs liver biopsy ICD-9 : 790.5 ICD-10 : R74.8 02/02/2017 Appointment: Nirmala Jaramillo WPtel: [address] [place], [place] [id number] FOLLOW UP 02/02/2017 Patient Education: Patient Medication Summary Completed 02/02/2017 Care Plan: Referral Order SNOMED-CT : 30 [id number] Pending 02/02/2017 Patient Education: Patient Medication Summary Completed 01/28/2017 Care Plan: ACUTE HEPATITIS PANEL LOINC : 89599-1 Pending 01/28/2017 Patient Education: Patient Medication Summary Completed 01/26/2017 Care Plan: COMPREHEN METABOLIC PANEL EVY NC : 13273-6 Pending 01/26/2017 Care Plan: A1C HPLC LOINC : 60952-1 Pending 01/26/2017 Appointment: Nirmala Jaramillo WPtel: [address] [place], [place] [phone] [place] INJECTION 11/30/2016 Referral: Sav Goff1 [facility] C&D [id number] [place] Referral Initiated 11/30/2016 Patient Education: Patient Medication Summary Completed 11/30/2016 Visit Diagnosis Plan: Superficial foreign body, left f oot, initial encounter Discussion: Left foot area cleansed with alcohol and betadine and anesthesized with 1% lidocaine after informed consent obtained. Small superficial incision made with 15 blade scalpel over area of pain. 2 small slivers of glass removed with no further pain with palpation over area, tolerated well with no complications, bactroban and dressing applied TdaP booster Cephalexin Notify of any signs of infection or if pain persists ICD-9 : 917.6 ICD-10 : S90.852A 11/29/2016 Appointment: Nirmala Jaramillo WPtel: [address] [place], [place] [phone] ACUTE ILLNESS 11/29/2016 Patient Education: Patient Medication Summary Completed 11/29/2016 Visit Diagnosis Plan: Cough Discussion: Check PFT Star t Protonix See pulmonology ICD-9 : 786.2 ICD-10 : R05 11/16/2016 Visit Diagnosis Plan: Abnormal levels of other serum e nzymes Discussion: Check LFTs ICD-9 : 790.5 ICD-10 : R74.8 11/16/2016 Visit Diagnosis Plan: Family history of other endocrine, nutritional and metabolic diseases Discussion: Check TSH, Free T4, TT# Follow Up: As needed ICD-9 : V18.19 ICD-10 : Z83.49 11/16/2016 Appointment: Nirmala Jaramillo WPtel: [address] [place] [address] FOLLOW UP 11/16/2016 Patient Education: Patient Medication Summary Completed 11/16/2016 Care Plan: Referral Order SNOMED-CT : [id number] Pending 11/16/2016 Appointment: Nirmala Jaramillo WPtel: [address] [place], [place] [phone] [place] RESCHEDULED 11/08/2016 Visit Diagnosis Plan: Other hypertrophic disorders of the skin Discussion: Irritated skin tags excised at base and then bases cauterized ICD-9 : 701.9 ICD-10 : L91.8 10/05/2016 Appointment: Nirmala Jaramillo WPtel: [address] [place], [place] [phone] [id number] confirmed-sp OFFICE SURGERY 10/05/2016 Patient Education: Patient Medication Summary Completed 10/05/2016 Appointment: Nirmala Jaramillo WPtel: [address] [place], [place] [phone] [place] Per doctor~sl 09/09 canceled due to work ~ CANC ELED 09/10/2016 Visit Diagnosis Plan: Cough Discussion: Continue zyrte c and singulair Add flonase If persists at fwup then will see ENT Follow Up: 2 months ICD-9 : 786.2 ICD-10 : R05 09/06/2016 Visit Diagnosis Plan: Other seasonal allergic rhinitis Discussion: As above ICD-9 : 477.9 ICD-10 : J30.2 09/06/2016 Visit Diagnosis Plan: Abnormal levels of other serum e nzymes Discussion: Update liver enzymes ICD-9 : 790.5 ICD-10 : R74.8 09/06/2016 Appointment: Nirmala Jaramillo WPtel: [address] [place] [address] 09/02 lm~sl FOLLOW UP 09/06/2016 Patient Education: Patient Medication Summary Completed 09/06/2016 Patient Education: Patient Medication Summary Completed 08/18/2016 Care Plan: ACUTE HEPATITIS PANEL LOINC : 74072-0 Pending 08/18/2016 Care Plan: TICKBORNE DISEASE PANEL (WITH LYME ANTIBODY Pending 08/18/2016 Visit Diagnosis Plan: Polycystic ovarian syndrome Disc ussion: Annual labs TSH, Free T4, CBC, CMP, lipids ICD-9 : 256.4 ICD-10 : E28.2 08/16/2016 Visit Diagnosis Plan: Cough Discussion: Throat culture Stop Proair Continue humidifier, and supportive therapy ENT if culture negative and persists Follow Up: 2 weeks ICD-9 : 786.2 ICD-10 : R05 08/16/2016 Appointment: Nirmala Jaramillo WPtel: [address] [place] [address] 08/13 confirmed `sl WORK IN 08/16/2016 Patient Education: Patient Medication Summary Completed 08/16/2016 Care Plan: MAMMOGRAM SCREENING Grandmother Juliane Ca in late LOINC : 08639-9 Pending 08/16/2016 Patient Education: Patient Medication Summary Completed 07/27/2016 Visit Diagnosis Plan: Acute bronchitis, unspecified Di scussion: Rxs as above Borrow neb machine until home with hers if needed OTC meds reviewed Watch BSs closely Follow up if not improving ICD-9 : 466.0 ICD-10 : J20.9 06/23/2016 Appointment: Ananya Lopez [address] [place] [address] ACUTE ILLNESS 06/23/2016 Patient Education: Patient Medication Summary Completed 06/23/2016 [facility]ment[facility] [phone] [id number] [place] [facility] 03/09/2016 Patient Education: Patient Medication Summary Completed 03/09/2016 Appointment: Nirmala Jaramillo WPtel: [address] [place], [place] [phone] [place] INJECTION 02/16/2016 Visit Plan: Decrease Breo to 100/25mcg 1 p BID for another week Flu shot with Prevnar 13 next week if covered Refill metformin 12/18/2015 Appointment: Nirmala Jaramillo WPtel: [address] [place], [place] [phone] 12/16 confirmed`sl FOLLOW UP 12/18/2015 Patient Education: Patient Medication Summary Completed 12/18/2015 [facility] - Even Patien tIDs Completed 12/18/2015 Visit Plan: CXR negative Kenalog/Dexamet hasone today Add Breo 200 1p BID for 1 week then Breo 100 1 p BID Tussionex rx given Continue SVNs with albuterol BID Notify if worsening Recheck 1week 12/11/2015 Appointment: Nirmala Jaramillo WPtel: [address] [place], [place] [email or web address] ACUTE ILLNESS 12/11/2015 Patient Education: Patient Medication Summary Completed 12/11/2015 Visit Plan: Patient sounds and appears i mproved Continue mucinex, vit C, breathing treatments, humidifier, vicks, etc CXR on am and will call with report before the weekend Monitor for any return of concerning symptoms - fevers, chills, worsening cough, etc 12/08/2015 Appointment: Ananya Lopez [address] [place], [place] [email or web address] 12/04 Lm~sl....confirmed-sp FOLLOW UP 11/28 Patient Education: Patient Medication Summary Completed 12/08/2015 Visit Plan: [facility] above [facility] has nebulizer machine she can use Supportive care reviewed Monitor BS closely - glucometer and instructions on use given - reports history of "insulin resistance" Follow up in 1 week for recheck - will plan to get xray after she's off her meds to be sure infection resolved - follow up sooner if not continuing to improve 12/01/2015 Appointment: Ananya Lopez [address] [id number] 11/30 lm ~sl NEW PATIENT 12/01/2015 Patient Education: Patient Medication Summary Completed 12/01/2015 Referral: Dhruv Montalvo WPtel: [address] [id number] [place] Referral Appointment Requested Referral: Chan Chavez WPtel: [address] [facility] [address] [id number] [place] Referral Completed Referral: Dhruv Lubin WPtel: [address] [facility] [id number] Referral Initiated Instructions Comment . Saline nasal flushes prn. Tylenol/Motr in prn headache. Notify if persists/symptoms worsening. . Decrease Breo to 100/25mcg 1p BID for another week Flu shot with Prevnar 13 next week if covered Refill metformin . CXR negative Kenalog/Dexamethasone today Add Breo 200 1p BID for 1 week then Breo 100 1 p BID Tussionex rx given Continue SVNs with albuterol BID Notify if worsening Recheck 1week . Patient sounds and appears improved Continue mucinex, vit C, breathing treatments, humidifier, vicks, etc CXR on am and will call with report before the weekend Monitor for any return of concerning symptoms - fevers, chills, worsening cough, etc . Finish levaquin ordered by [employer] Add above meds has nebulizer machine she can use Supportive care reviewed Monitor BS closely - glucometer and instructions on use given - reports history of "insulin resistance" Follow up in 1 week for recheck - will plan to get xray after she's off her meds to be sure infection resolved - follow up sooner if not continuing to improve Medical Equipment No Medical Equipment data Health Concerns Section Health Concerns data not found Goals Section Goals data not found Interventions Section Interventions data not found Health Status Evaluations/Outcomes Section Health Status Evaluations/Outcomes data not found Advance Directives No Advance Directive data
--- OUTSIDE RECORDS SUMMARY | 2019-05-18 13:13 | XMS REPORT | CCD ---
Author Author Veronica Lopez Organization [facility] Address [address] [place] [address] Phone Unavailable Care Team Providers Care Assembly Line Driver Name Role Phone Nirmala Jaramillo D.O., PP Unavailable CCM Unavailable Summary Purpose Interface Exchange Insurance Providers Payer name Policy type / Coverage type Covered republican ID Effective Begin Date Effective End Date [employer] Commercial Insurance [id number] Unknown Family History Family History data not found Social History Social History Element Codes Description Effective Dates Marital status Unknown 12/01/2015 Number of children Unknown 3 12/01/2015 Employment Unknown Currently employed 12/01/[address]: 678225445 Never smoker 12/01/[address]: 825491494 Never drinks alcohol 2015 Allergies, Adverse Reactions, [...] Fill Instructions Rexulti 1 mg tablet RxNorm: 0912567 1 Tablet(s) Oral QD 04/30/2019 Active Victoza 2-Ab 0.6 mg/0.1 mL (18 mg/3 mL) subcutaneous pen injector RxNorm: 279293 Milliliter(s) Subcutaneous 0.6 mg daily for 1 week, then 1.2 mg daily for 1 week, then 1.8 mg daily 04/30/2019 08/28/2019 Active Lexapro 20 mg tablet RxNorm: 150529 TAKE 1 TABLET BY MOUTH EVERY DA Y 04/16/2019 06/14/2019 Active lisinopril 40 mg tablet RxNorm: 774501 TAKE 1 TABLET BY MOUTH E VERY 04/04/2019 08/01/2019 Active Trulicity 0.75 mg/0.5 mL subcutaneous pen injector RxNorm: 1 585800 INJECT 1 DOSE SUB-Q ONCE WEEKLY 03/27/2019 05/21/2019 Active Zithromax Z-Ab 250 mg tablet RxNorm: 035574 Tablet(s) Oral jackson e as directed 03/27/2019 03/27/2019 Inactive Zithromax Z-Ab 250 mg tablet RxNorm: 263983 Tablet(s) Oral jackson e as directed 03/27/2019 03/26/2019 Inactive promethazine 6.25 mg-codeine 10 mg/5 mL syrup RxNorm: 275365 5 Milliliter(s) Oral Q4H as needed 03/26/2019 04/30/2019 Inactive amlodipine 5 mg tablet RxNorm: 816252 TAKE 1 TABLET BY MOUTH EV EZRA02/19/2019 05/19/2019 Active Trulicity 0.75 mg/0.5 mL subcutaneous pen injector RxNorm: 1 906585 INJECT 1 DOSE SUB-Q ONCE WEEKLY 02/19/2019 03/18/2019 Inactive Lexapro 20 mg tablet RxNorm: 353748 1 TABLET(S) PO QD 01/04/201905/2019 Inactive lisinopril 40 mg tablet RxNorm: 086829 1 TABLET(S) PO QD 12/05/2018 0 04/03/2019 Inactive scopolamine 1 mg over 3 days transdermal patch RxNorm: 72043 2 1 Application Transdermal Q72H 11/27/2018 11/26/2018 Inactive scopolamine 1 mg over 3 days transdermal patch RxNorm: 20479 2 1 Application Transdermal Q72H 11/27/2018 11/27/2018 Inactive ondansetron HCl 4 mg tablet RxNorm: 329879 1 Tablet(s) Oral Q4H as needed for nausea 11/27/2018 11/27/2018 Inactive ondansetron HCl 4 mg tablet RxNorm: 765029 1 Tablet(s) Oral Q4H as needed for nausea 11/27/2018 11/26/2018 Inactive amlodipine 5 mg tablet RxNorm: 653534 1 TABLET(S) PO QD 11/20/2018 Inactive Xanax 0.25 mg tablet RxNorm: 786471 1 Tablet(s) PO as needed 2018 No Stop Date Active ProAir HFA 90 mcg/actuation aerosol inhaler RxNorm: 549279 2 Puff(s) INH Q4H as needed 10/31/2018 No Stop Date Active if insurance das s not cover, please switch to ventolin. prednisone 20 mg tablet RxNorm: 535597 1 Tablet(s) PO BID 10/31/2018 11/04/2018 Inactive Zithromax Z-Ab 250 mg tablet RxNorm: 970924 Tablet(s) take as directed PO 10/31/2018 01/22/2019 Inactive Trulicity 0.75 mg/0.5 mL subcutaneous pen injector RxNorm: 1 780424 1 Unit Dose SQ QW 10/31/2018 02/18/2019 Inactive Ozempic 0.25 mg or 0.5 mg (2 mg/1.5 mL) subcutaneous p en injector RxNorm: 8549924 0.5 Milligram(s) SQ QW 10/09/2018 10/30/2018 Inactive Ozempic 0.25 mg or 0.5 mg (2 mg/1.5 mL) subcutaneous p en injector RxNorm: 3750189 0.5 Gram(s) SQ QW 10/05/2018 10/08/2018 Inactive lisinopril 40 mg tablet RxNorm: 917710 1 Tablet(s) PO QD 09/18/2018 1 Inactive metformin 1,000 mg tablet RxNorm: 191154 1 TABLET(S) PO QD 09/07/19 19 03/04/2019 Inactive Trulicity 0.75 mg/0.5 mL subcutaneous pen injector RxNorm: 1 662912 0.75 Milligram(s) SQ QW Replaces Ozemic 08/28/2018 10/30/2018 Inactive replaces Ozempic Ozempic 0.25 mg or 0.5 mg (2 mg/1.5 mL) subcutaneous p en injector RxNorm: 9161291 0.5 Milligram(s) SQ WEEKLY 08/28/2018 10/05/2018 Inactive metformin 1,000 mg tablet RxNorm: 011411 1 Tablet(s) PO QD 08/24/1909/05/2018 Inactive Ozempic 0.25 mg or 0.5 mg (2 mg/1.5 mL) subcutaneous p en injector RxNorm: 2157501 0.5 Milligram(s) SQ WEEKLY 08/03/2018 08/27/2018 Inactive amlodipine 5 mg tablet RxNorm: 818614 1 Tablet(s) PO QD 07/25/2018 Inactive Lexapro 20 mg tablet RxNorm: 276734 1 Tablet(s) PO QD 07/10/201807/2018 Inactive lisinopril 40 mg tablet RxNorm: 410742 1 Tablet(s) PO QD 07/10/2018 0 09/07/2018 Inactive amlodipine 5 mg tablet RxNorm: 496415 1 Tablet(s) PO QD 06/22/2018 Inactive lisinopril 40 mg tablet RxNorm: 671380 1 Tablet(s) PO QD 06/22/2018 0 07/09/2018 Inactive lisinopril 20 mg tablet RxNorm: 290102 1 Tablet(s) PO QD 06/19/2018 0 06/21/2018 Inactive lisinopril 5 mg tablet RxNorm: 420605 1 Tablet(s) PO QD 06/13/2018 Inactive metformin 1,000 mg tablet RxNorm: 147388 Tablet(s) TABLET(S) 1 TABLET(S) PO QD 06/08/2018 08/22/2018 Inactive Tamiflu 75 mg capsule RxNorm: 366145 1 Capsule(s) PO BID 04/26/2018 0 04/30/2018 Inactive Tamiflu 75 mg capsule RxNorm: 319008 1 Capsule(s) PO BID 04/26/2018 0 04/25/2018 Inactive prednisone 10 mg tablet RxNorm: 463383 1 Tablet(s) PO TID 04/25/2018 04/29/2018 Inactive prednisone 20 mg tablet RxNorm: 295791 1 Tablet(s) PO BID 04/14/2018 04/20/2018 Inactive Augmentin 500 mg-125 mg tablet RxNorm: 130796 1 Tablet(s) PO BID 04/20/2018 Inactive metformin 1,000 mg tablet RxNorm: 125654 TABLET(S) 1 TABLET(S) PO Q D 03/09/2018 06/06/2018 Inactive celecoxib 200 mg capsule RxNorm: 443585 1 Capsule(s) PO BID for diana n 01/31/2018 03/01/2018 Inactive metformin 1,000 mg tablet RxNorm: 703025 1 Tablet(s) PO BID 018 No Stop Date Active Medrol (Ab) 4 mg tablets in a dose pack RxNorm: 525784 Tablet(s) PO take as directed 01/23/2018 01/30/2018 Inactive Lexapro 20 mg tablet RxNorm: 450741 Tablet(s) 1 TABLET(S) PO QD 06/21/2018 Inactive Lexapro 20 mg tablet RxNorm: 941214 Tablet(s) 1 TABLET(S) PO QD 07/201701/22/2018 Inactive metformin 1,000 mg tablet RxNorm: 515596 1 Tablet(s) PO BID 018 01/22/2018 Inactive Lexapro 20 mg tablet RxNorm: 458174 Tablet(s) 1 TABLET(S) PO QD 11/02/2017 Inactive metformin 1,000 mg tablet RxNorm: 149827 Tablet(s) 1 TABLET(S) PO Q D 09/22/2017 09/26/2017 Inactive Xanax 0.25 mg tablet RxNorm: 868045 1 Tablet(s) PO as needed 201710/30/2018 Inactive metformin 1,000 mg tablet RxNorm: 092470 Tablet(s) 1 TA BLET(S) PO QD NEEDS UPDATED LABS 09/06/2017 09/20/2017 Inactive metformin 1,000 mg tablet RxNorm: 997337 1 TABLET(S) PO QD NEED S UPDATED LABS 08/24/2017 09/05/2017 Inactive metformin 1,000 mg tablet RxNorm: 313567 1 Tablet(s) PO QD Need s updated labs 08/08/2017 08/22/2017 Inactive Lexapro 20 mg tablet RxNorm: 102584 1 TABLET(S) PO QD 07/17/201708/29 Inactive pseudoephedrine 30 mg tablet RxNorm: 7745056 1-2 Tablet(s) PO Q6H 0 07/05/2017 06/12/2018 Inactive Augmentin 875 mg-125 mg tablet RxNorm: 778497 1 Tablet(s) PO BID 07/14/2017 Inactive metformin 1,000 mg tablet RxNorm: 527433 1 Tablet(s) PO QD Need s updated labs 07/04/2017 08/08/2017 Inactive metformin 1,000 mg tablet RxNorm: 923962 1 Tablet(s) PO QD Need s updated labs 05/30/2017 07/04/2017 Inactive Levaquin 750 mg tablet RxNorm: 144814 1 Tablet(s) PO QD 03/04/2017 Inactive ProAir HFA 90 mcg/actuation aerosol inhaler RxNorm: 623485 2 Puff(s) INH Q4H as needed 03/04/2017 07/04/2017 Inactive if insurance das s not cover, please switch to ventolin. Tamiflu 75 mg capsule RxNorm: 587679 1 Capsule(s) PO QD 03/04/2017 Inactive metformin 1,000 mg tablet RxNorm: 590648 1 Tablet(s) PO QD 02/16/20 17 05/15/2017 Inactive Lexapro 20 mg tablet RxNorm: 237093 1 Tablet(s) PO QD 01/17/201707/2017 Inactive cephalexin 500 mg capsule RxNorm: 499689 1 Capsule(s) PO TID 201612/08/2016 Inactive pantoprazole 40 mg tablet,delayed release RxNorm: 594760 1 Tabl et(s) PO QD 11/16/2016 03/15/2017 Inactive metformin 1,000 mg tablet RxNorm: 438918 TAKE 1 TABLET BY MOUTH EVERY DAY 10/10/2016 02/15/2017 Inactive Flonase Allergy Relief 50 mcg/actuation nasal spray,suspensi on RxNorm: 4379576 2 [place] NASAL QHS 09/06/2016 11/15/2016 Inactive Singulair 10 mg tablet RxNorm: 091768 1 Tablet(s) PO QHS 09/06/2016 0 11/15/2016 Inactive Singulair 10 mg tablet RxNorm: 736100 1 Tablet(s) PO QHS 08/12/2016 0 09/05/2016 Inactive ProAir HFA 90 mcg/actuation aerosol inhaler RxNorm: 849999 1 Puff(s) INH Q4H as needed 08/12/2016 08/15/2016 Inactive Medrol (Ab) 4 mg tablets in a dose pack RxNorm: 543178 Tablet(s) PO As Directed 07/29/2016 08/15/2016 Inactive Lexapro 20 mg tablet RxNorm: 933705 1 Tablet(s) PO QD 07/06/201612/30 Inactive doxycycline hyclate 100 mg capsule RxNorm: 2397879 1 Capsule(s) PO BID 06/24/2016 06/23/2016 Inactive doxycycline hyclate 100 mg capsule RxNorm: 4262509 1 Capsule(s) PO BID 06/24/2016 07/03/2016 Inactive ProAir HFA 90 mcg/actuation aerosol inhaler RxNorm: 962645 1 Puff(s) INH Q4H as needed 06/23/2016 08/11/2016 Inactive prednisone 20 mg tablet RxNorm: 993168 1 Tablet(s) PO BID 06/23/2016 06/27/2016 Inactive metformin 1,000 mg tablet RxNorm: 247088 1 Tablet(s) PO QD 12/18/19 16 06/14/2016 Inactive Lexapro 20 mg tablet RxNorm: 816042 1 Tablet(s) PO QD 12/18/201510/2016 Inactive prednisone 20 mg tablet RxNorm: 921274 Take 3 tabs PO Q D x 3 days, then 2 tabs PO QD x 3 days, then 1 tab PO QD x 3 days 12/01/2015 12/10/2015 Inacti ve albuterol sulfate 2.5 mg/3 mL (0.083 %) solution for n ebulization RxNorm: 625903 3 Milliliter(s) INH Q4H as needed 12/01/2015 07/04/2017 Inactiv e Singulair 10 mg tablet RxNorm: 053182 1 Tablet(s) PO QHS No Start D ate 08/11/2016 Inactive Breo Ellipta 100 mcg-25 mcg/dose powder for inhalation RxNor m: 9077525 1 Puff(s) INH QD No Start Date 02/01/2017 Inactive Zyrtec 10 mg tablet RxNorm: 4235063 1 Tablet(s) PO QAM No Start Date 11/15/2016 Inactive Xanax 0.25 mg tablet RxNorm: 963881 1 Tablet(s) PO as needed No Sta rt Date 09/21/2017 Inactive metformin 1,000 mg tablet RxNorm: 887798 1 Tablet(s) PO QD No Start Date 12/17/2015 Inactive Singulair 10 mg tablet RxNorm: 888193 1 Tablet(s) PO QHS No Start D ate 11/15/2016 Inactive metformin 1,000 mg tablet RxNorm: 269252 1 Tablet(s) PO QD No Start Date 02/14/2017 Inactive metformin 1,000 mg tablet RxNorm: 929125 1 Tablet(s) PO BID No Star t Date 09/26/2017 Inactive Trulicity 0.75 mg/0.5 mL subcutaneous pen injector RxNorm: 1 448104 0.75 Milligram(s) SQ QW No Start Date 08/27/2018 Inactive Medrol (Ab) 4 mg tablets in a dose pack RxNorm: 510646 Tablet(s) PO As Directed No Start Date 07/28/2016 Inactive Lexapro 20 mg tablet RxNorm: 915046 1 Tablet(s) PO QD No Start Date 1 Inactive Lexapro 20 mg tablet RxNorm: 438312 1 Tablet(s) PO QD No Start Date 0 07/09/2018 Inactive Medication Administered No Medication Administered data Immunizations Vaccine Codes Date Status Tetanus, Diptheria, Pertussis CVX: 115 11/30/2016 Co mplete Pneumococcal CVX: 133 03/09/2016 Complete Results Observation Observation Code Item Item Code Result Date S ervice Location VIRAL HEPATITIS PROFILE #2 59466 Hep A IgM Non-Reactive 06/20/2018 Unknown VIRAL HEPATITIS PROFILE #2 41779 Hep B Core IgM Non-Reac tive 06/20/2018 Unknown VIRAL HEPATITIS PROFILE #2 41737 Hepatitis C Ab Non-Reac tive 06/20/2018 Unknown VIRAL HEPATITIS PROFILE #2 02731 Hep Bs Ag Non-Reactive 06/20/2018 Unknown MEAN GLUC 1231552 Calc Mean Gluc 194 mg/dL 06/19/2018 Unkn own COMPREHENSIVE METABOLIC 68387 AST 94 U/L 2018 Unknown COMPREHENSIVE METABOLIC 80340 ALT 160 U/L 2018 Unknown COMPREHENSIVE METABOLIC 52326 BUN 9 mg/dL 2018 Unknown COMPREHENSIVE METABOLIC 23634 ALBUMIN 4.6 g/dL 2018 Unknown COMPREHENSIVE METABOLIC 03309 CHLORIDE 101 mmol/L 06/19 Unknown COMPREHENSIVE METABOLIC 99921 Bili Total 0.9 mg/dL 06/19 Unknown COMPREHENSIVE METABOLIC 73560 ALK PHOS 64 U/L 2018 Unknown COMPREHENSIVE METABOLIC 39263 SODIUM 136 mmol/L 06/19 Unknown COMPREHENSIVE METABOLIC 14799 CREATININE 0.58 mg/dL 05/30 Unknown COMPREHENSIVE METABOLIC 09310 CALCIUM 10.3 mg/dL 06/19 Unknown COMPREHENSIVE METABOLIC 43140 POTASSIUM 3.7 mmol/L 06/19 Unknown COMPREHENSIVE METABOLIC 56753 Total Protein 7.1 g/dL Unknown COMPREHENSIVE METABOLIC 12077 Glucose 187 mg/dL 2018 Unknown COMPREHENSIVE METABOLIC 63681 Bicarbonate 26 mmol/L 05/30 Unknown COMPREHENSIVE METABOLIC 89528 AGAP 9 mmol/L 2018 Unknown GLYCOSYLATED HEMOGLOBIN TEST 17484 Hgb A1c 77874-4 8.4 % 0 06/19/2018 Unknown COMPLETE BLOOD COUNT 4013729 WBC 6.2 10e9/L 06/20/19 19 Unknown COMPLETE BLOOD COUNT 6041020 RBC 4.70 10e12/L 2018 Unknown COMPLETE BLOOD COUNT 5824831 HEMOGLOBIN 13.4 g/dL 06/20/19 19 Unknown COMPLETE BLOOD COUNT 5031592 HEMATOCRIT 39.9 % 06/20/19 19 Unknown COMPLETE BLOOD COUNT 5708022 MCV 84.9 fL 9 Unknown COMPLETE BLOOD COUNT 4643682 MCH 28.5 pg 9 Unknown COMPLETE BLOOD COUNT 9905678 MCHC 33.6 g/dL 9 Unknown COMPLETE BLOOD COUNT 1705456 PLATELET COUNT 252 10e9/L Unknown COMPLETE BLOOD COUNT 8296757 Mean Plt Volume 12.2 fL Unknown COMPLETE BLOOD COUNT 4902489 Neut Auto 53.9 % 9 Unknown COMPLETE BLOOD COUNT 1253058 Lymph Auto 35.2 % 06/20/19 19 Unknown COMPLETE BLOOD COUNT 5604125 [place] Auto 7.1 % 9 Unknown COMPLETE BLOOD COUNT 2531713 RDW 14.1 % 9 Unknown COMPLETE BLOOD COUNT 2870632 Eos Auto 3.2 % 9 Unknown COMPLETE BLOOD COUNT 6987280 Baso Auto 0.6 % 9 Unknown COMPLETE BLOOD COUNT 5293115 Neutrophil Abs 3.34 10e9/L Unknown COMPLETE BLOOD COUNT 9841979 Lymphocyte Abs 2.18 10e9/L Unknown COMPLETE BLOOD COUNT 4890007 Monocyte Abs 0.44 10e9/L 05/30 Unknown COMPLETE BLOOD COUNT 7927451 Eosinophil Abs 0.20 10e9/L Unknown COMPLETE BLOOD COUNT 6515475 RDW-SD 42.7 fL 9 Unknown COMPLETE BLOOD COUNT 7517522 Basophil Abs 0.04 10e9/L 05/30 Unknown THYROID STIMULATING HORMONE 02563 TSH 1.976 uIU/mL 06/19/2018 Unknown GFR CALC 5512916 GFR Non Afr Amr >60 mL/min 06/19/2018 Un known GFR CALC 5702907 GFR Afr Amr >60 mL/min 06/19/2018 Unknow n SURESWAB(R), BACTERIAL VAGINOSIS/VAGINITIS 44880 BV CATEGORY: TNP 09/27/2017 [facility] [address] [place] [address] SURESWAB(R), BACTERIAL VAGINOSIS/VAGINITIS 06146 LACTOBACILLUS S PECIES DNR 09/27/2017 [facility] [address] [place] [address] SURESWAB(R), BACTERIAL VAGINOSIS/VAGINITIS 55258 ATOPOBIUM VAGIN AE DNR 09/27/2017 [facility] [address] [place] [address] SURESWAB(R), BACTERIAL VAGINOSIS/VAGINITIS 58713 MEGASPHAERA SPE CIES DNR 09/27/2017 [facility] [address] [place] [address] SURESWAB(R), BACTERIAL VAGINOSIS/VAGINITIS 17859 GARDNERELLA VAG INALIS DNR 09/27/2017 [facility] [address] [place] [address] SURESWAB(R), BACTERIAL VAGINOSIS/VAGINITIS 35422 SURESWAB(R) TRICHOMONAS VAGINALIS RNA, QL TMA TNP 09/27/2017 [facility] [address] [place] [address] SURESWAB(R), BACTERIAL VAGINOSIS/VAGINITIS 31596 C. ALBICANS, DN A TNP 09/27/2017 [facility] [address] [place] [address] SURESWAB(R), BACTERIAL VAGINOSIS/VAGINITIS 21791 C. GLABRATA, DN A DNR 09/27/2017 [facility] [place] [address] SURESWAB(R), BACTERIAL VAGINOSIS/VAGINITIS 86884 C. TROPICALIS, DNA DNR 09/27/2017 [facility] [place] [address] SURESWAB(R), BACTERIAL VAGINOSIS/VAGINITIS 81278 C. PARAPSILOSIS , DNA DNR 09/27/2017 [facility] [place] [address] THINPREP TIS AND HPV mRNA E6/E7 68353 REPORT STATUS: DNR 09/27/2017 [facility] [address] [place] [address] THINPREP TIS AND HPV mRNA E6/E7 52240 CLINICAL INFORMATION: 09/27/2017 [facility] [address] THINPREP TIS AND HPV mRNA E6/E7 92595 LMP: 201709/27/2017 [facility] [place] [address] THINPREP TIS AND HPV mRNA E6/E7 34635 PREV. PAP: 09/27/2017 [facility] [address] THINPREP TIS AND HPV mRNA E6/E7 82795 PREV. BX: 09/27/2017 [facility] [place] [address] THINPREP TIS AND HPV mRNA E6/E7 50976 SOURCE: Cerv ix 09/27/2017 [place] [address] [place] [address] THINPREP TIS AND HPV mRNA E6/E7 82253 STATEMENT OF ADEQUACY: 09/27/[address] [place] [address] THINPREP TIS AND HPV mRNA E6/E7 55530 GENERAL CATEGORIZATION: DNR 09/27/[address] [place] [address] [address] THINPREP TIS AND HPV mRNA E6/E7 93824 INTERPRETATION/RESULT: 09/27/[address] [place] [address] [address] [address] THINPREP TIS AND HPV mRNA E6/E7 45796 INFECTION: DNR 09/27/2017 [place] [address] THINPREP TIS AND HPV mRNA E6/E7 53281 COMMENT: 09/27/2017 [place] [address] THINPREP TIS AND HPV mRNA E6/E7 69376 OUTDOOR EDUCATION TEACHER: 09/27/2017 [place] [address] THINPREP TIS AND HPV mRNA E6/E7 64495 REVIEW OUTDOOR EDUCATION TEACHER: LORETTA 09/27/2017 [place] [place] [address] THINPREP TIS AND HPV mRNA E6/E7 68136 PATHOLOGIST: KHLOE Srivastava 09/27/2017 [place] [place] [address] THINPREP TIS AND HPV mRNA E6/E7 32592 COMMENT 09/27/2017 [place] [place] [address] THINPREP TIS AND HPV mRNA E6/E7 83192 HPV mRNA E6/E7 Not Detected 09/27/2017 [place] [place] [address] CULTURE, GENITAL 28626 CULTURE, GENITAL SEE NOTE [place] [address] CULTURE, THROAT 36450 CULTURE, THROAT SEE NOTE 07/30 [facility] [[email or web address] [address] [place] [address] Procedures Procedure Codes Date INFLUENZA ASSAY W/OPTIC CPT-4: 31499 03/26/2019 DEXAMETHASONE SODIUM PHOS CPT-4: J1100 03/26/2019 THER/PROPH/DIAG INJ SC/IM CPT-4: 10986 03/26/2019 TRIAMCINOLONE ACET INJ NOS CPT-4: J3301 03/26/2019 DRAIN/INJECT JOINT/BURSA CPT-4: 11118 01/23/2019 ROUTINE VENIPUNCTURE CPT-4: 15858 06/19/2018 COMPLETE CBC W/AUTO DIFF WBC CPT-4: 29911 06/19/2018 COMPREHEN METABOLIC PANEL CPT-4: 47769 06/19/2018 A1C HPLC CPT-4: 38185 06/19/2018 ASSAY THYROID STIM HORMONE CPT-4: 09015 06/19/2018 URINALYSIS NONAUTO W/O SCOPE CPT-4: 61606 06/19/2018 ACUTE HEPATITIS PANEL CPT-4: 51359 06/19/2018 INFLUENZA ASSAY W/OPTIC CPT-4: 82894 04/26/2018 STREP A ASSAY W/OPTIC CPT-4: 99811 04/25/2018 THROAT CULTURE CPT-4: 25167 04/25/2018 CEFTRIAXONE SODIUM INJECTION CPT-4: J0696 11/10/2017 DEXAMETHASONE SODIUM PHOS CPT-4: J1100 11/10/2017 THER/PROPH/DIAG INJ SC/IM CPT-4: 60936 11/10/2017 TRIAMCINOLONE ACET INJ NOS CPT-4: J3301 11/10/2017 OCCULT BLOOD FECES CPT-4: 36611 09/22/2017 SURESWAB(R), BACTERIAL VAGINOSIS/VAGINITIS CPT-4: 53703 09/22/2017 CULTURE, GENITAL CPT-4: 36601 09/22/2017 TDAP VACCINE 7 YRS/> IM CPT-4: 55972 11/30/2016 IMMUNIZATION ADMIN CPT-4: 13709 11/30/2016 REMOVAL OF FOOT FOREIGN BODY CPT-4: 89100 11/29/2016 REMOVAL OF SKIN TAGS <W/15 CPT-4: 76568 10/05/2016 CULTURE, THROAT CPT-4: 70247 08/16/2016 PNEUMOCOCCAL VACC 13 AYSHA IM CPT-4: 40637 03/09/2016 IMMUNIZATION ADMIN CPT-4: 96095 03/09/2016 THER/PROPH/DIAG INJ SC/IM CPT-4: 10109 12/11/2015 TRIAMCINOLONE ACET INJ NOS CPT-4: J3301 [...] 1: 126/84 Code: 8480-6 BMI: 39.9 Code: 73471-7 Heart Rate 1: 80 bpm Height: 5'2" [...] 1: 126/82 Code: 8480-6 BMI: 40.6 Code: 13014-1 Heart Rate 1: 72 bpm Height: 5'2" [...] 1: 124/68 Code: 8480-6 BMI: 41.7 Code: 38718-4 Heart Rate 1: 66 bpm Height: 5'2" Respiratory Rate: 20 bpm SpO2: 98% Tempera ture: 36.2 (C) / 97.2 (F) Weight: 228 lbs 09/22/2017 Blood Pressure 1: 142/80 Code: 8480-6 BMI: 41.3 Code: 30433-8 Heart Rate 1: 60 bpm Height: 5'2" Respiratory Rate: 20 bpm SpO2: 98% Tempera ture: 36.3 (C) / 97.3 (F) Weight: 226 lbs 07/05/2017 Blood Pressure 1: 129/82 Code: 8480-6 BMI: 42.3 Code: 42621-8 Heart Rate 1: 60 bpm Height: 5'2" SpO2: 97% Temperature: 36.4 (C) / 97.6 (F) Weight: 231 lbs 03/04/2017 Blood Pressure 1: 142/80 Code: 8480-6 BMI: 42.4 Code: 41110-8 Heart Rate 1: 74 bpm Height: 5'2" Respiratory Rate: 24 bpm SpO2: 97% Tempera ture: 36.4 (C) / 97.6 (F) Weight: 232 lbs 02/02/2017 Blood Pressure 1: 146/82 Code: 8480-6 BMI: 42.4 Code: 64998-3 Heart Rate 1: 84 bpm Height: 5'2" Respiratory Rate: 20 bpm SpO2: 98% Tempera ture: 36.6 (C) / 97.9 (F) Weight: 232 lbs 11/29/2016 Blood Pressure 1: 126/78 Code: 8480-6 Heart Rate 1: 76 bpm Height: 5'2" Respiratory Rate: 20 bpm SpO2: 96% Temperature: 36 .9 (C) / 98.4 (F) 11/16/2016 Blood Pressure 1: 136/94 Code: 8480-6 BMI: 42.6 Code: 25303-6 Heart Rate 1: 68 bpm Height: 5'2" Respiratory Rate: 20 bpm SpO2: 96% Tempera ture: 36.9 (C) / 98.4 (F) Weight: 233 lbs 10/05/2016 Blood Pressure 1: 112/78 Code: 8480-6 BMI: 41.5 Code: 17170-6 Heart Rate 1: 80 bpm Height: 5'2" Respiratory Rate: 20 bpm SpO2: 97% Tempera ture: 36.8 (C) / 98.2 (F) Weight: 227 lbs 09/06/2016 Blood Pressure 1: 126/82 Code: 8480-6 BMI: 42.4 Code: 61709-8 Heart Rate 1: 64 bpm Height: 5'2" Respiratory Rate: 20 bpm SpO2: 98% Tempera ture: 37.0 (C) / 98.6 (F) Weight: 232 lbs 08/16/2016 Blood Pressure 1: 136/82 Code: 8480-6 BMI: 42.1 Code: 82608-6 Heart Rate 1: 72 bpm Height: 5'2" [...] 1: 144/80 Code: 8480-6 BMI: 40.4 Code: 89499-2 Heart Rate 1: 92 bpm Height: 5'2" Respiratory Rate: 20 bpm SpO2: 95% Tempera ture: 36.8 (C) / 98.2 (F) Weight: 221 lbs 12/08/2015 Blood Pressure 1: 124/78 Code: 8480-6 Heart Rate 1: 108 bpm Height: 5'2" Respiratory Rate: 22 bpm SpO2: 95% Temperature: 36.2 (C) / 97.2 (F) Weight: 12/01/2015 Blood Pressure 1: 124/78 Code: 8480-6 BMI: 40.4 Code: 55450-2 Heart Rate 1: 92 bpm Height: 5'2" [...] leg cough 11/10/2017 patient was seen at [facility] and given Levaquin and 5 day steroid [...] care Encounters Encounter Performer Location Codes Date (53212) OFFICE/OUTPATIENT VISIT EST Diagnosis: Type 2 diabetes mellitus with hyperglycemia[ICD10: E11.65] Diagnosis: Major depressive disorder, single episode, unspecified[ICD10: F32.9] Diagnosis: Anxiety and depression[ICD10: F41.9] Lisbeth ORNELAS BRADEN [place] CPT-4: 57645 04/30/2019 ([id number]) OFFICE/OUTPATIENT VISIT EST Diagnosis: Upper respiratory infection[ICD10: J06.9] Diagnosis: Viral syndrome[ICD10: B34.9] Lisbeth Smithdi NIRMALA [place] CPT-4: 10564 03/26/2019 ([id number]) OFFICE/OUTPATIENT VISIT EST Diagnosis: Acute upper respiratory infection, unspecified[ICD10: J06.9] Diagnosis: Generalized anxiety disorder[ICD10: F41.1] Diagnosis: Type 2 diabetes mellitus with hyperglycemia[ICD10: E11.65] Diagnosis: Encounter for therapeutic drug level monitoring[ICD10: Z51.81] Lisbeth Smithdi NIRMALA [place] CPT-4: 11702 10/31/2018 ([id number]) OFFICE/OUTPATIENT VISIT EST Diagnosis: Type 2 diabetes mellitus with hyperglycemia[ICD10: E11.65] Diagnosis: Essential (primary) hypertension[ICD10: I10] Nirmala JARAMILLO DO [facility] CPT-4: 00069 08/08/2018 ([id number]) OFFICE/OUTPATIENT VISIT EST Diagnosis: Essential (primary) hypertension[ICD10: I10] Diagnosis: Type 2 diabetes mellitus with hyperglycemia[ICD10: E11.65] Diagnosis: Other fatigue[ICD10: R53.83] Nirmala JARAMILLO [employer] [facility] CPT-4: 77132 07/06/2018 ([id number]) OFFICE/OUTPATIENT VISIT EST Diagnosis: Dizziness and giddiness[ICD10: R42] Diagnosis: Elevated blood-pressure reading, without diagnosis of hypertension[ICD10: R03.0] Shell JARAMILLO DO [facility] CPT- 4: 86131 06/19/2018 ([id number]) OFFICE/OUTPATIENT VISIT EST Diagnosis: Essential (primary) hypertension[ICD10: I10] Diagnosis: Dizziness and giddiness[ICD10: R42] Shell JARAMILLO [employer] [facility] CPT-4: 05115 06/13/2018 ([id number]) NURSE/OUTPATIENT VISIT EST Diagnosis: Influenza due to identified novel influenza A virus with other manifestations[ICD10: J09.X9] Nirmala JARAMILLO [employer] [facility] CPT-4: 54250 04/26/2018 OFFICE/OUTPATIENT VISIT EST Diagnosis: Pain in throat[ICD10: R07.0] Diagnosis: Acute pharyngitis, unspecified[ICD10: J02.9] Shell JARAMILLO DO [facility] CPT-4: 36327 04/25/2018 ([id number]) OFFICE/OUTPATIENT VISIT EST Diagnosis: Acute sinusitis, unspecified[ICD10: J01.90] Diagnosis: Paresthesia of skin[ICD10: R20.2] Nirmala JARAMILLO [employer] [facility] [facility] CPT[facility] 96305 04/14/2018 ([id number]) OFFICE/OUTPATIENT VISIT EST Diagnosis: Pain in right leg[ICD10: M79.604] Diagnosis: Sciatica, right side[ICD10: M54.31] Nirmala JARAMILLO DO [employer] CPT-4: 10882 01/31/2018 ([id number]) OFFICE/OUTPATIENT VISIT EST Diagnosis: Pain in right leg[ICD10: M79.604] Lisbeth JARAMILLO DO [employer] CPT-4: 00522 01/23/2018 ([id number]) OFFICE/OUTPATIENT VISIT EST Diagnosis: Acute bronchitis, unspecified[ICD10: J20.9] Lisbeth JARAMILLO DO [employer] CPT-4: 77181 11/10/2017 ([id number]) PREV VISIT EST AGE 40-64 Diagnosis: Encounter [...] Diagnosis: Nonalcoholic steatohepatitis (MOORE)[ICD10: K75.81] Lisbeth JARAMILLO [employer] CPT-4: 27885 09/22/2017 ([id number]) OFFICE/OUTPATIENT VISIT EST Diagnosis: Acute sinusitis, unspecified[ICD10: J01.90] Lisbeth JARAMILLO [employer] CPT-4: 69320 07/05/2017 OFFICE/OUTPATIENT VISIT EST Diagnosis: Pneumonia, unspecified organism[ICD10: J18.9] Lisbeth JARAMILLO DO [employer] CPT-4: 47344 03/04/2017 ([id number]) OFFICE/OUTPATIENT VISIT EST Diagnosis: Polycystic ovarian syndrome[ICD10: E28.2] Diagnosis: Abnormal levels of other serum enzymes[ICD10: R74.8] Diagnosis: Nonalcoholic steatohepatitis (MOORE)[ICD10: K75.81] Diagnosis: Impaired glucose tolerance (oral)[ICD10: R73.02] Nirmala JARAMILLO DO [facility] CPT-4: 17911 02/02/2017 ([id number]) OFFICE/OUTPATIENT VISIT EST Diagnosis: VACCINE FOR TDAP[ICD10: Z23] Nirmala JARAMILLO DO [facility] CPT-4: 84859 11/30/2016 ([id number]) OFFICE/OUTPATIENT VISIT EST Diagnosis: Cough[ICD10: R05] Diagnosis: Abnormal levels of other serum enzymes[ICD10: R74.8] Diagnosis: Family history of other endocrine, nutritional and metabolic diseases[ICD10: Z83.49] Nirmala JARAMILLO DO [facility] CPT-4: 29572 11/16/2016 ([id number]) OFFICE/OUTPATIENT VISIT EST Diagnosis: Cough[ICD10: R05] Diagnosis: Other seasonal allergic rhinitis[ICD10: J30.2] Diagnosis: Abnormal levels of other serum enzymes[ICD10: R74.8] Nirmala JARAMILLO DO [facility] CPT-4: 65459 09/06/2016 ([id number]) OFFICE/OUTPATIENT VISIT EST Diagnosis: Cough[ICD10: R05] Diagnosis: Polycystic ovarian syndrome[ICD10: E28.2] Nirmala JARAMILLO [employer] [facility] CPT-4: 13670 08/16/2016 ([id number]) OFFICE/OUTPATIENT VISIT EST Diagnosis: Acute bronchitis, unspecified[ICD10: J20.9] Diagnosis: Acute upper respiratory infection, unspecified[ICD10: J06.9] Ananya Lopez NIRMALA JARAMILLO [employer] [facility] CPT-4: 20049 06/23/2016 ([id number]) OFFICE/OUTPATIENT VISIT EST Diagnosis: PNEUMOCOCCAL VACCINE[ICD10: Z23] Nirmala JARAMILLO DO [facility] CPT-4: 36038 03/09/2016 ([id number]) OFFICE/OUTPATIENT VISIT EST Diagnosis: Pneumonia, unspecified organism[ICD10: J18.9] Diagnosis: Polycystic ovarian syndrome[ICD10: E28.2] Diagnosis: Generalized anxiety disorder[ICD10: F41.1] Nirmala JARAMILLO [employer] CPT-4: 08577 12/18/2015 ([id number]) OFFICE/OUTPATIENT VISIT EST Diagnosis: Cough[ICD10: R05] Diagnosis: Acute bronchospasm[ICD10: J98.01] Nirmala JARAMILLO [employer] CPT-4: 50556 12/11/2015 ([id number]) OFFICE/OUTPATIENT VISIT EST Diagnosis: Pneumonia, unspecified organism[ICD10: J18.9] Ananya JARAMILLO [employer] CPT-4: 00071 12/08/2015 OFFICE/OUTPATIENT VISIT NEW Diagnosis: Pneumonia, unspecified organism[ICD10: J18.9] Ananya JARAMILLO DO [employer] CPT-4: 10333 12/01/2015 Plan of Care Planned Activity Notes [...] F41.9 04/30/2019 Patient Education: Rex[employer]i- Optimize[employer] Coupon [id number] https://www.Care2Manage.Nopsec/samplemd/resources/getResource/61/5j63vg49-14b4-8yx6-48 Completed 04/30/2019 Patient Education: Victoza 2-Ab- OptimizeRX Coupon 10 [id number] https://www.Care2Manage.Nopsec/samplemd/resources/getResource/61/pyk22ehc-2bkf-47o7-m6 Completed 04/30/2019 Visit Diagnosis Plan: Upper respiratory infection Disc ussion: influenza neg. kenalog/dexa 40/4 given in office due to severity of symptoms and patient's hx of pneumonia. instructed to call office tomorrow with worsening symptoms, otherwise push fluids and cough syrup prn. ICD-9 : 465.9 ICD-10 : J06.9 03/26/2019 Appointment: Lisbeth Kruger [address] [place], [place] [address]a [address] ACUTE ILLNESS 03/26/2019 Visit Diagnosis Plan: Tibial collateral bursitis of ri ght knee Discussion: Bursa injection as above PELON wrap/rest Notify in 1-2 weeks how knee is doing ICD-9 : 726.62 ICD-10 : M76.41 01/23/2019 Appointment: Nirmala Jaramillo WPtel: [phone] ACUTE ILLNESS 01/23/2019 Care Plan: Referral Order SNOMED-CT : 30 [id number] Pending 01/23/2019 Visit Diagnosis Plan: Type 2 [...] ICD-10 : F41.1 10/31/2018 Appointment: Lisbeth Kruger [address] [place], [place] [address] [address] ACUTE ILLNESS 10/31/2018 Patient Education: Trulicity- OptimizeRX Coupon [id number] https://www.MeinProspekt/sampleEnlightened Lifestyle/resources/getResource/61/v961i7q7-j025-6f21-xs Completed 10/31/2018 Patient Education: Xanax- OptimizeRX Coupon [id number] https://www.[employer]in[employer]kt/sampleEnlightened Lifestyle/resources/getResource/61/dj60608z-9114-90t9-ol b2-935j913a5122.pdf Completed 10/31/2018 Patient Education: prednisone- OptimizeRX Coupon [id number] 386 https://www.[employer]in[employer]kt/sampleEnlightened Lifestyle/resources/getResource/61/293ut691-0604-22a3-53 Completed 10/31/2018 Patient Education: Pro[employer] HFA- OptimizeRX Coupon 61011 600 https://www.MeinProspekt/sampleEnlightened Lifestyle/resources/getResource/61/0xl26973-67h6-7389-25 Completed 10/31/2018 Visit Diagnosis Plan: Essential (primary) hypertension Discussion: Stable ICD-9 : 401.9 ICD-10 : I10 08/08/2018 Visit Diagnosis Plan: Type 2 diabetes mellitus with hy perglycemia Discussion: Lab discussed Accuchecks daily Continue current meds Check CMP and HbA1C end of September then fwup ICD-9 : 250.02 ICD-10 : E11.65 08/08/2018 Appointment: [phone] [facility] [facility] 08/08/2018 Visit Diagnosis Plan: [...] : R53.83 07/06/2018 Appointment: Nirmala Jaramillo WPtel: [address] [place] [address] FOLLOW UP 07/06/2018 Appointment: Nirmala Jaramillo WPtel: [address] [place] [address] [place] Consult 06/22/2018 Patient Education: lisinopril- OptimizeRX Coupon [id number] https://www.Care2Manage.Nopsec/samplemd/resources/getResource/61/269v44s5-vhy1-1086-td Completed 06/22/2018 Visit Diagnosis Plan: Essential (primary) hypertension Discussion: Increased lisinopril from 5 QD to 20 mg QD. Labs today- CBC, CMP, TSH, A1C. UA today- trace protein. hematuria (patient on period). ICD-9 : 401.9 ICD-10 : I10 06/19/2018 Visit Diagnosis Plan: Dizziness and giddiness Discussi on: Recommend scheduling appt with linux administrator. ICD-9 : 780.4 ICD-10 : R42 06/19/2018 Appointment: Shell Vega [facility] [address] FOLLOW UP 06/19/2018 Visit Diagnosis Plan: [...] ICD-10 : R42 06/13/2018 Appointment: Shell Vega [facility] [address] ACUTE ILLNESS 06/13/2018 Appointment: Nirmala Jaramillo WPtel: [address] [place] [address] FLU SWAB 04/26/2018 Visit Diagnosis Plan: Pain in throat Discussion: Rapid Strep A- negative Throat culture- pending. Will call patient with results. Prednisone 10 mg TID x 5 days. Supportive care- fluids, tylenol for pain, humidified air. ICD-9 : 784.1 ICD-10 : R07.0 04/25/2018 Appointment: Shell Vega [address] ACUTE ILLNESS 04/25/2018 Visit Plan: Saline [...] : J01.90 04/14/2018 Appointment: Nirmala Jaramillo WPtel: [address] [place] [address] ACUTE ILLNESS 04/14/2018 Patient Education: prednisone- OptimizeRX Coupon [id number] https://www.MeinProspekt/samplemd/resources/getResource/61/6yjo99au-v1m8-20f4-h0 Completed 04/14/2018 Visit Diagnosis Plan: Pain in right leg Discussion: Ch dickson right tib/fib x-ray and start celebrex May need PT ICD-9 : 729.5 ICD-10 : M79.604 01/31/2018 Visit Diagnosis Plan: Sciatica, right side Discussion: Check L/S spine x-ray ICD-9 : 724.3 ICD-10 : M54.31 01/31/2018 Appointment: Nirmala Jaramillo WPtel: [facility] [address] FOLLOW UP 01/31/2018 Care Plan: X-RAY EXAM L-S SPINE 2/3 VWS LOINC : 80604-9 Pending 01/31/2018 Care Plan: X-RAY EXAM OF LOWER LEG LOINC : 75038-4 Pending 01/31/2018 Visit Diagnosis Plan: Pain in [...] ICD-10 : M79.604 01/23/2018 Appointment: Lisbeth Kruger [address] [place] [address] ACUTE ILLNESS 01/23/2018 Visit Diagnosis Plan: Acute [...] ICD-10 : J20.9 11/10/2017 Appointment: Lisbeth Kruger [address] [place] [address] ACUTE ILLNESS 11/10/2017 Patient Education: Patient Medication Summary Completed 11/10/2017 Care Plan: CHEST X-RAY 2VW FRONTAL&LATL LOINC : 96102-8 Pending 11/10/2017 Patient Education: Patient Medication Summary Completed 09/26/2017 Care Plan: A1C HPLC LOINC : 99763-5 Pending 09/26/2017 Visit Diagnosis Plan: Encounter for [facility] adult medical examination without abnormal findings Discussion: fasting blood work ordered t o be obtained at [facility] in the next few days when fasting. [...] ICD-10 : Z12.31 09/22/2017 Appointment: Lisbeth Kruger [employer] [address] Annual Well Visit 09/22/2017 Patient Education: [...] : J01.90 07/05/2017 Appointment: Lisbeth Kruger [employer] [place] [id number] ACUTE ILLNESS 07/05/2017 Patient Education: Patient Medication [...] ICD-10 : J18.9 03/04/2017 Appointment: Lisbeth Kruger [employer] [place] [id number] FOLLOW UP 03/04/2017 Patient Education: Patient Medication [...] : R74.8 02/02/2017 Appointment: Nirmala Jaramillo WPtel: [address] [place], [place] [phone] FOLLOW UP 02/02/2017 Patient Education: Patient Medication Summary Completed 02/02/2017 Care Plan: Referral Order SNOMED-CT : 30 [id number] Pending 02/02/2017 Patient Education: Patient Medication Summary Completed 01/28/2017 Care Plan: ACUTE HEPATITIS PANEL LOINC : 97114-7 Pending 01/28/2017 Patient Education: Patient Medication Summary Completed 01/26/2017 Care Plan: COMPREHEN METABOLIC PANEL EVY NC : 55844-5 Pending 01/26/2017 Care Plan: A1C HPLC LOINC : 28295-2 Pending 01/26/2017 Appointment: Nirmala Jaramillo WPtel: [address] [place], [place] [phone] [place] INJECTION 11/30/2016 Referral: Sav Goff1 [facility] C&D [id number] [place] Referral Initiated 11/30/2016 Patient Education: Patient [...] : S90.852A 11/29/2016 Appointment: Nirmala Jaramillo WPtel: [address] [place], [place] [phone] ACUTE ILLNESS 11/29/2016 Patient Education: Patient Medication [...] : Z83.49 11/16/2016 Appointment: Nirmala Jaramillo WPtel: [address] [place] [address] FOLLOW UP 11/16/2016 Patient Education: Patient Medication Summary Completed 11/16/2016 Care Plan: Referral Order SNOMED-CT : 30 9239238 Pending 11/16/2016 Appointment: Nirmala Jaramillo WPtel: [address] [place], [place] [phone] [place] RESCHEDULED 11/08/2016 Visit Diagnosis Plan: Other hypertrophic disorders of the skin Discussion: Irritated skin tags excised at base and then bases cauterized ICD-9 : 701.9 ICD-10 : L91.8 10/05/2016 Appointment: Nirmala Jaramillo WPtel: [address] [place], [place] [phone] [id number] confirmed-sp OFFICE SURGERY 10/05/2016 Patient Education: Patient Medication Summary Completed 10/05/2016 Appointment: Nirmala Jaramillo WPtel: [address] [place], [place] [phone] [place] Per doctor~sl 09/09 canceled due to [...] : R74.8 09/06/2016 Appointment: Nirmala Jaramillo WPtel: [address] [place] [address] 09/02 lm~sl FOLLOW UP 09/06/2016 Patient Education: Patient Medication Summary Completed 09/06/2016 Patient Education: Patient Medication Summary Completed 08/18/2016 Care Plan: ACUTE HEPATITIS PANEL LOINC : 71370-0 Pending 08/18/2016 Care Plan: TICKBORNE DISEASE PANEL [...] : R05 08/16/2016 Appointment: Nirmala Jaramillo WPtel: [address] [place] [address] 08/13 confirmed `sl WORK IN 08/16/2016 Patient Education: Patient Medication Summary Completed 08/16/2016 Care Plan: MAMMOGRAM SCREENING Grandmother Juliane Ca in late LOINC : 85292-6 Pending 08/16/2016 Patient Education: Patient Medication Summary Completed 07/27/2016 Visit Diagnosis Plan: Acute bronchitis, unspecified Di scussion: Rxs as above Borrow neb machine until home with hers if needed OTC meds reviewed Watch BSs closely Follow up if not improving ICD-9 : 466.0 ICD-10 : J20.9 06/23/2016 Appointment: Ananya Lopez [address] [place] [address] ACUTE ILLNESS 06/23/2016 Patient Education: Patient Medication Summary Completed 06/23/2016 Appointment: [facility]irm[facility]illo [facility]Ptel[facility] [phone] [facility] [place] INJECTION 03/09/2016 Patient Education: Patient Medication Summary Completed 03/09/2016 Appointment: Nirmala Jaramillo WPtel: [address] [place], [place] [phone] [place] INJECTION 02/16/2016 Visit Plan: Decrease Breo to 100/25mcg 1 p BID for another week Flu shot with Prevnar 13 next week if covered Refill metformin 12/18/2015 Appointment: Nirmala Jaramillo WPtel: [address] [place], [place] [phone] 12/16 confirmed`sl FOLLOW UP 12/18/2015 Patient Education: Patient Medication Summary Completed 12/18/2015 [facility] - Even Patien tIDs Completed 12/18/2015 Visit Plan: CXR negative Kenalog/Dexamet hasone today Add Breo 200 1p BID for 1 week then Breo 100 1 p BID Tussionex rx given Continue SVNs with albuterol BID Notify if worsening Recheck 1week 12/11/2015 Appointment: Nirmala Jaramillo WPtel: [address] [place], [place] [phone] ACUTE ILLNESS 12/11/2015 Patient Education: Patient Medication Summary Completed 12/11/2015 Visit Plan: Patient sounds and appears i mproved Continue mucinex, vit C, breathing treatments, humidifier, vicks, etc CXR on am and will call with report before the weekend Monitor for any return of concerning symptoms - fevers, chills, worsening cough, etc 12/08/2015 Appointment: Ananya Lopez [address] [place], [place] [id number] 12/04 Lm~sl....confirmed-sp FOLLOW UP 11/28 Patient Education: Patient Medication Summary Completed 12/08/2015 Visit Plan: [facility] above meds has nebulizer machine she [...] 12/01/2015 Appointment: Ananya Lopez [address] [id number] 11/30 lm ~sl NEW PATIENT 12/01/2015 Patient Education: Patient Medication Summary Completed 12/01/2015 Referral: Dhruv Montalvo WPtel: [address] [id number] [place] Referral Appointment Requested Referral: Chan Chavez WPtel: [address] [facility] [address] [id number] [place] Referral Completed Referral: Dhruv Lubin WPtel: [address] [facility] 3 [id number] Referral Initiated Instructions Comment . Saline nasal [...] cough, etc . Finish levaquin ordered by [employer] Add above meds has nebulizer machine she [...]
--- OUTSIDE RECORDS SUMMARY | 2019-05-18 13:13 | XMS REPORT | CCD ---
Author Author Veronica Lopez Organization [facility] Address [address] [place] [address] Phone Unavailable Care Team Providers Care Ultrasound Specialist Name Role Phone Nirmala Jaramillo D.O., PP Unavailable CCM Unavailable Summary Purpose Interface Exchange Insurance Providers Payer name Policy type / Coverage type Covered constitution party ID Effective Begin Date Effective End Date [employer] Commercial Insurance [id number] Unknown Family History Family History data not found Social History Social History Element Codes Description Effective Dates Marital status Unknown 12/01/2015 Number of children Unknown 3 12/01/2015 Employment Unknown Currently employed 12/01/[address]: 234587388 Never smoker 12/01/[address]: 557718516 Never drinks alcohol 2015 Allergies, Adverse Reactions, [...] Start Date Stop Date Status Fill Instructions Pen Needle 32 gauge x 5/32" RxNorm: 1 Miscellane ous QD with victoza pen (dx E11.65) 05/16/2019 05/16/2019 Inactive Pen Needle 32 gauge x 5/32" RxNorm: 1 Miscellane ous QD with victoza pen (dx E11.65) 05/16/2019 05/15/2019 Inactive Rexulti 1 mg tablet RxNorm: 8234371 1 Tablet(s) Oral QD 04/30/2019 Active Victoza 2-Ab 0.6 mg/0.1 mL (18 mg/3 mL) subcutaneous pen injector RxNorm: 311911 Milliliter(s) Subcutaneous 0.6 mg daily for 1 week, then 1.2 mg daily for 1 week, then 1.8 mg daily 04/30/2019 08/28/2019 Active Lexapro 20 mg tablet RxNorm: 301728 TAKE 1 TABLET BY MOUTH EVERY DA Y 04/16/2019 06/14/2019 Active lisinopril 40 mg tablet RxNorm: 911610 TAKE 1 TABLET BY MOUTH E 04/04/2019 08/01/2019 Active Trulicity 0.75 mg/0.5 mL subcutaneous pen injector RxNorm: 1 597162 INJECT 1 DOSE SUB-Q ONCE WEEKLY 03/27/2019 05/21/2019 Active Zithromax Z-Ab 250 mg tablet RxNorm: 223608 Tablet(s) Oral jackson e as directed 03/27/2019 03/27/2019 Inactive Zithromax Z-Ab 250 mg tablet RxNorm: 801513 Tablet(s) Oral jackson e as directed 03/27/2019 03/26/2019 Inactive promethazine 6.25 mg-codeine 10 mg/5 mL syrup RxNorm: 671421 5 Milliliter(s) Oral Q4H as needed 03/26/2019 04/30/2019 Inactive amlodipine 5 mg tablet RxNorm: 654323 TAKE 1 TABLET BY MOUTH EV EZRA02/19/2019 05/19/2019 Active Trulicity 0.75 mg/0.5 mL subcutaneous pen injector RxNorm: 1 280484 INJECT 1 DOSE SUB-Q ONCE WEEKLY 02/19/2019 03/18/2019 Inactive Lexapro 20 mg tablet RxNorm: 075134 1 TABLET(S) PO QD 01/04/201905/2019 Inactive lisinopril 40 mg tablet RxNorm: 923140 1 TABLET(S) PO QD 12/05/2018 0 04/03/2019 Inactive scopolamine 1 mg over 3 days transdermal patch RxNorm: 68841 2 1 Application Transdermal Q72H 11/27/2018 11/26/2018 Inactive scopolamine 1 mg over 3 days transdermal patch RxNorm: 95423 2 1 Application Transdermal Q72H 11/27/2018 11/27/2018 Inactive ondansetron HCl 4 mg tablet RxNorm: 854201 1 Tablet(s) Oral Q4H as needed for nausea 11/27/2018 11/27/2018 Inactive ondansetron HCl 4 mg tablet RxNorm: 130405 1 Tablet(s) Oral Q4H as needed for nausea 11/27/2018 11/26/2018 Inactive amlodipine 5 mg tablet RxNorm: 776371 1 TABLET(S) PO QD 11/20/2018 Inactive Xanax 0.25 mg tablet RxNorm: 298835 1 Tablet(s) PO as needed 2018 No Stop Date Active ProAir HFA 90 mcg/actuation aerosol inhaler RxNorm: 904504 2 Puff(s) INH Q4H as needed 10/31/2018 No Stop Date Active if insurance das s not cover, please switch to ventolin. prednisone 20 mg tablet RxNorm: 316641 1 Tablet(s) PO BID 10/31/2018 11/04/2018 Inactive Zithromax Z-Ab 250 mg tablet RxNorm: 721625 Tablet(s) take as directed PO 10/31/2018 01/22/2019 Inactive Trulicity 0.75 mg/0.5 mL subcutaneous pen injector RxNorm: 1 498075 1 Unit Dose SQ QW 10/31/2018 02/18/2019 Inactive Ozempic 0.25 mg or 0.5 mg (2 mg/1.5 mL) subcutaneous p en injector RxNorm: 5611131 0.5 Milligram(s) SQ QW 10/09/2018 10/30/2018 Inactive Ozempic 0.25 mg or 0.5 mg (2 mg/1.5 mL) subcutaneous p en injector RxNorm: 1188443 0.5 Gram(s) SQ QW 10/05/2018 10/08/2018 Inactive lisinopril 40 mg tablet RxNorm: 515270 1 Tablet(s) PO QD 09/18/2018 1 Inactive metformin 1,000 mg tablet RxNorm: 772441 1 TABLET(S) PO QD 09/07/1903/04/2019 Inactive Trulicity 0.75 mg/0.5 mL subcutaneous pen injector RxNorm: 1 038647 0.75 Milligram(s) SQ QW Replaces Ozemic 08/28/2018 10/30/2018 Inactive replaces Ozempic Ozempic 0.25 mg or 0.5 mg (2 mg/1.5 mL) subcutaneous p en injector RxNorm: 8408477 0.5 Milligram(s) SQ WEEKLY 08/28/2018 10/05/2018 Inactive metformin 1,000 mg tablet RxNorm: 356701 1 Tablet(s) PO QD 08/24/1909/05/2018 Inactive Ozempic 0.25 mg or 0.5 mg (2 mg/1.5 mL) subcutaneous p en injector RxNorm: 9820969 0.5 Milligram(s) SQ WEEKLY 08/03/2018 08/27/2018 Inactive amlodipine 5 mg tablet RxNorm: 171376 1 Tablet(s) PO QD 07/25/2018 Inactive Lexapro 20 mg tablet RxNorm: 079535 1 Tablet(s) PO QD 07/10/201807/2018 Inactive lisinopril 40 mg tablet RxNorm: 027048 1 Tablet(s) PO QD 07/10/2018 0 09/07/2018 Inactive amlodipine 5 mg tablet RxNorm: 230684 1 Tablet(s) PO QD 06/22/2018 Inactive lisinopril 40 mg tablet RxNorm: 449502 1 Tablet(s) PO QD 06/22/2018 0 07/09/2018 Inactive lisinopril 20 mg tablet RxNorm: 403064 1 Tablet(s) PO QD 06/19/2018 0 06/21/2018 Inactive lisinopril 5 mg tablet RxNorm: 680332 1 Tablet(s) PO QD 06/13/2018 Inactive metformin 1,000 mg tablet RxNorm: 512535 Tablet(s) TABLET(S) 1 TABLET(S) PO QD 06/08/2018 08/22/2018 Inactive Tamiflu 75 mg capsule RxNorm: 574857 1 Capsule(s) PO BID 04/26/2018 0 04/30/2018 Inactive Tamiflu 75 mg capsule RxNorm: 631314 1 Capsule(s) PO BID 04/26/2018 0 04/25/2018 Inactive prednisone 10 mg tablet RxNorm: 244430 1 Tablet(s) PO TID 04/25/2018 04/29/2018 Inactive prednisone 20 mg tablet RxNorm: 171146 1 Tablet(s) PO BID 04/14/2018 04/20/2018 Inactive Augmentin 500 mg-125 mg tablet RxNorm: 813024 1 Tablet(s) PO BID 04/20/2018 Inactive metformin 1,000 mg tablet RxNorm: 533868 TABLET(S) 1 TABLET(S) PO Q D 03/09/2018 06/06/2018 Inactive celecoxib 200 mg capsule RxNorm: 693845 1 Capsule(s) PO BID for diana n 01/31/2018 03/01/2018 Inactive metformin 1,000 mg tablet RxNorm: 182884 1 Tablet(s) PO BID No Stop Date Active Medrol (Ab) 4 mg tablets in a dose pack RxNorm: 865340 Tablet(s) PO take as directed 01/23/2018 01/30/2018 Inactive Lexapro 20 mg tablet RxNorm: 983172 Tablet(s) 1 TABLET(S) PO QD 06/21/2018 Inactive Lexapro 20 mg tablet RxNorm: 256257 Tablet(s) 1 TABLET(S) PO QD 07/201701/22/2018 Inactive metformin 1,000 mg tablet RxNorm: 244056 1 Tablet(s) PO BID 018 01/22/2018 Inactive Lexapro 20 mg tablet RxNorm: 466603 Tablet(s) 1 TABLET(S) PO QD 11/02/2017 Inactive metformin 1,000 mg tablet RxNorm: 148475 Tablet(s) 1 TABLET(S) PO Q D 09/22/2017 09/26/2017 Inactive Xanax 0.25 mg tablet RxNorm: 936631 1 Tablet(s) PO as needed 201710/30/2018 Inactive metformin 1,000 mg tablet RxNorm: 306650 Tablet(s) 1 TA BLET(S) PO QD NEEDS UPDATED LABS 09/06/2017 09/20/2017 Inactive metformin 1,000 mg tablet RxNorm: 697414 1 TABLET(S) PO QD NEED S UPDATED LABS 08/24/2017 09/05/2017 Inactive metformin 1,000 mg tablet RxNorm: 488752 1 Tablet(s) PO QD Need s updated labs 08/08/2017 08/22/2017 Inactive Lexapro 20 mg tablet RxNorm: 189282 1 TABLET(S) PO QD 07/17/201708/29 Inactive pseudoephedrine 30 mg tablet RxNorm: 8102552 1-2 Tablet(s) PO Q6H 0 07/05/2017 06/12/2018 Inactive Augmentin 875 mg-125 mg tablet RxNorm: 282792 1 Tablet(s) PO BID 07/14/2017 Inactive metformin 1,000 mg tablet RxNorm: 523314 1 Tablet(s) PO QD Need s updated labs 07/04/2017 08/08/2017 Inactive metformin 1,000 mg tablet RxNorm: 167111 1 Tablet(s) PO QD Need s updated labs 05/30/2017 07/04/2017 Inactive Levaquin 750 mg tablet RxNorm: 490954 1 Tablet(s) PO QD 03/04/2017 Inactive ProAir HFA 90 mcg/actuation aerosol inhaler RxNorm: 660877 2 Puff(s) INH Q4H as needed 03/04/2017 07/04/2017 Inactive if insurance das s not cover, please switch to ventolin. Tamiflu 75 mg capsule RxNorm: 884891 1 Capsule(s) PO QD 03/04/2017 Inactive metformin 1,000 mg tablet RxNorm: 433009 1 Tablet(s) PO QD 02/16/20 17 05/15/2017 Inactive Lexapro 20 mg tablet RxNorm: 869231 1 Tablet(s) PO QD 01/17/201707/2017 Inactive cephalexin 500 mg capsule RxNorm: 368342 1 Capsule(s) PO TID 201612/08/2016 Inactive pantoprazole 40 mg tablet,delayed release RxNorm: 689154 1 Tabl et(s) PO QD 11/16/2016 03/15/2017 Inactive metformin 1,000 mg tablet RxNorm: 620258 TAKE 1 TABLET BY MOUTH EVERY DAY 10/10/2016 02/15/2017 Inactive Flonase Allergy Relief 50 mcg/actuation nasal spray,suspensi on RxNorm: 8479135 2 Nipomo NASAL QHS 09/06/2016 11/15/2016 Inactive Singulair 10 mg tablet RxNorm: 124098 1 Tablet(s) PO QHS 09/06/2016 0 11/15/2016 Inactive Singulair 10 mg tablet RxNorm: 651070 1 Tablet(s) PO QHS 08/12/2016 0 09/05/2016 Inactive ProAir HFA 90 mcg/actuation aerosol inhaler RxNorm: 065642 1 Puff(s) INH Q4H as needed 08/12/2016 08/15/2016 Inactive Medrol (Ab) 4 mg tablets in a dose pack RxNorm: 854482 Tablet(s) PO As Directed 07/29/2016 08/15/2016 Inactive Lexapro 20 mg tablet RxNorm: 717826 1 Tablet(s) PO QD 07/06/201612/30 Inactive doxycycline hyclate 100 mg capsule RxNorm: 9612987 1 Capsule(s) PO BID 06/24/2016 06/23/2016 Inactive doxycycline hyclate 100 mg capsule RxNorm: 7945338 1 Capsule(s) PO BID 06/24/2016 07/03/2016 Inactive ProAir HFA 90 mcg/actuation aerosol inhaler RxNorm: 892119 1 Puff(s) INH Q4H as needed 06/23/2016 08/11/2016 Inactive prednisone 20 mg tablet RxNorm: 914470 1 Tablet(s) PO BID 06/23/2016 06/27/2016 Inactive metformin 1,000 mg tablet RxNorm: 098503 1 Tablet(s) PO QD 12/18/19 16 06/14/2016 Inactive Lexapro 20 mg tablet RxNorm: 699998 1 Tablet(s) PO QD 12/18/201510/2016 Inactive prednisone 20 mg tablet RxNorm: 049799 Take 3 tabs PO Q D x 3 days, then 2 tabs PO QD x 3 days, then 1 tab PO QD x 3 days 12/01/2015 12/10/2015 Inacti ve albuterol sulfate 2.5 mg/3 mL (0.083 %) solution for n ebulization RxNorm: 078308 3 Milliliter(s) INH Q4H as needed 12/01/2015 07/04/2017 Inactiv e Singulair 10 mg tablet RxNorm: 550741 1 Tablet(s) PO QHS No Start D ate 08/11/2016 Inactive Breo Ellipta 100 mcg-25 mcg/dose powder for inhalation RxNor m: 7375228 1 Puff(s) INH QD No Start Date 02/01/2017 Inactive Zyrtec 10 mg tablet RxNorm: 5861195 1 Tablet(s) PO QAM No Start Date 11/15/2016 Inactive Xanax 0.25 mg tablet RxNorm: 313808 1 Tablet(s) PO as needed No Sta rt Date 09/21/2017 Inactive metformin 1,000 mg tablet RxNorm: 042953 1 Tablet(s) PO QD No Start Date 12/17/2015 Inactive Singulair 10 mg tablet RxNorm: 133964 1 Tablet(s) PO QHS No Start D ate 11/15/2016 Inactive metformin 1,000 mg tablet RxNorm: 697216 1 Tablet(s) PO QD No Start Date 02/14/2017 Inactive metformin 1,000 mg tablet RxNorm: 789148 1 Tablet(s) PO BID No Star t Date 09/26/2017 Inactive Trulicity 0.75 mg/0.5 mL subcutaneous pen injector RxNorm: 1 888581 0.75 Milligram(s) SQ QW No Start Date 08/27/2018 Inactive Medrol (Ab) 4 mg tablets in a dose pack RxNorm: 706256 Tablet(s) PO As Directed No Start Date 07/28/2016 Inactive Lexapro 20 mg tablet RxNorm: 040570 1 Tablet(s) PO QD No Start Date 1 Inactive Lexapro 20 mg tablet RxNorm: 817268 1 Tablet(s) PO QD No Start Date 0 07/09/2018 Inactive Medication Administered No Medication Administered data Immunizations Vaccine Codes Date Status Tetanus, Diptheria, Pertussis CVX: 115 11/30/2016 Co mplete Pneumococcal CVX: 133 03/09/2016 Complete Results Observation Observation Code Item Item Code Result Date S ervice Location VIRAL HEPATITIS PROFILE #2 08774 Hep A IgM Non-Reactive 06/20/2018 Unknown VIRAL HEPATITIS PROFILE #2 99140 Hep B Core IgM Non-Reac tive 06/20/2018 Unknown VIRAL HEPATITIS PROFILE #2 48676 Hepatitis C Ab Non-Reac tive 06/20/2018 Unknown VIRAL HEPATITIS PROFILE #2 26828 Hep Bs Ag Non-Reactive 06/20/2018 Unknown MEAN GLUC 2023676 Calc Mean Gluc 194 mg/dL 06/19/2018 Unkn own COMPREHENSIVE METABOLIC 44368 AST 94 U/L 2018 Unknown COMPREHENSIVE METABOLIC 01845 ALT 160 U/L 2018 Unknown COMPREHENSIVE METABOLIC 02098 BUN 9 mg/dL 2018 Unknown COMPREHENSIVE METABOLIC 88925 ALBUMIN 4.6 g/dL 2018 Unknown COMPREHENSIVE METABOLIC 19892 CHLORIDE 101 mmol/L 06/19 Unknown COMPREHENSIVE METABOLIC 66860 Bili Total 0.9 mg/dL 06/19 Unknown COMPREHENSIVE METABOLIC 06634 ALK PHOS 64 U/L 2018 Unknown COMPREHENSIVE METABOLIC 92825 SODIUM 136 mmol/L 06/19 Unknown COMPREHENSIVE METABOLIC 87174 CREATININE 0.58 mg/dL 05/30 Unknown COMPREHENSIVE METABOLIC 56941 CALCIUM 10.3 mg/dL 06/19 Unknown COMPREHENSIVE METABOLIC 67569 POTASSIUM 3.7 mmol/L 06/19 Unknown COMPREHENSIVE METABOLIC 95707 Total Protein 7.1 g/dL Unknown COMPREHENSIVE METABOLIC 19046 Glucose 187 mg/dL 2018 Unknown COMPREHENSIVE METABOLIC 18577 Bicarbonate 26 mmol/L 05/30 Unknown COMPREHENSIVE METABOLIC 89143 AGAP 9 mmol/L 2018 Unknown GLYCOSYLATED HEMOGLOBIN TEST 75849 Hgb A1c 89077-6 8.4 % 0 06/19/2018 Unknown COMPLETE BLOOD COUNT 2264125 WBC 6.2 10e9/L 06/20/19 19 Unknown COMPLETE BLOOD COUNT 9297199 RBC 4.70 10e12/L 2018 Unknown COMPLETE BLOOD COUNT 1241092 HEMOGLOBIN 13.4 g/dL 06/20/19 19 Unknown COMPLETE BLOOD COUNT 8147055 HEMATOCRIT 39.9 % 06/20/19 19 Unknown COMPLETE BLOOD COUNT 0958809 MCV 84.9 fL 9 Unknown COMPLETE BLOOD COUNT 2305570 MCH 28.5 pg 9 Unknown COMPLETE BLOOD COUNT 1301643 MCHC 33.6 g/dL 9 Unknown COMPLETE BLOOD COUNT 5375615 PLATELET COUNT 252 10e9/L Unknown COMPLETE BLOOD COUNT 4228610 Mean Plt Volume 12.2 fL Unknown COMPLETE BLOOD COUNT 9700213 Neut Auto 53.9 % 9 Unknown COMPLETE BLOOD COUNT 5744430 Lymph Auto 35.2 % 06/20/19 19 Unknown COMPLETE BLOOD COUNT 3009650 Ulster Auto 7.1 % 9 Unknown COMPLETE BLOOD COUNT 0710903 Eos Auto 3.2 % 9 Unknown COMPLETE BLOOD COUNT 4925192 RDW 14.1 % 9 Unknown COMPLETE BLOOD COUNT 4983806 Baso Auto 0.6 % 9 Unknown COMPLETE BLOOD COUNT 7203986 Neutrophil Abs 3.34 10e9/L Unknown COMPLETE BLOOD COUNT 6052487 Lymphocyte Abs 2.18 10e9/L Unknown COMPLETE BLOOD COUNT 9218441 Monocyte Abs 0.44 10e9/L 05/30 Unknown COMPLETE BLOOD COUNT 6008885 Eosinophil Abs 0.20 10e9/L Unknown COMPLETE BLOOD COUNT 3318444 RDW-SD 42.7 fL 9 Unknown COMPLETE BLOOD COUNT 7190065 Basophil Abs 0.04 10e9/L 05/30 Unknown THYROID STIMULATING HORMONE 79804 TSH 1.976 uIU/mL 06/19/2018 Unknown GFR CALC 8970976 GFR Non Afr Amr >60 mL/min 06/19/2018 Un known GFR CALC 6865952 GFR Afr Amr >60 mL/min 06/19/2018 Unknow n SURESWAB(R), BACTERIAL VAGINOSIS/VAGINITIS 82255 BV CATEGORY: TNP 09/27/2017 [facility] [address] [place] [address] SURESWAB(R), BACTERIAL VAGINOSIS/VAGINITIS 96670 LACTOBACILLUS S PECIES DNR 09/27/2017 [facility] [address] [place] [address] SURESWAB(R), BACTERIAL VAGINOSIS/VAGINITIS 01012 ATOPOBIUM VAGIN AE DNR 09/27/2017 [facility] [address] [place] [address] SURESWAB(R), BACTERIAL VAGINOSIS/VAGINITIS 17717 MEGASPHAERA SPE CIES DNR 09/27/2017 [facility] [address] [place] [address] SURESWAB(R), BACTERIAL VAGINOSIS/VAGINITIS 47324 GARDNERELLA VAG INALIS DNR 09/27/2017 [facility] [place] [address] SURESWAB(R), BACTERIAL VAGINOSIS/VAGINITIS 13008 SURESWAB(R) TRICHOMONAS VAGINALIS RNA, QL TMA TNP 09/27/2017 [facility] [address] SURESWAB(R), BACTERIAL VAGINOSIS/VAGINITIS 82396 C. ALBICANS, DN A TNP 09/27/2017 [facility] [address] [place] [address] SURESWAB(R), BACTERIAL VAGINOSIS/VAGINITIS 39539 C. GLABRATA, DN A DNR 09/27/2017 [facility] [address] [place] [address] SURESWAB(R), BACTERIAL VAGINOSIS/VAGINITIS 49870 C. TROPICALIS, DNA DNR 09/27/2017 [facility] [address] [place] [address] SURESWAB(R), BACTERIAL VAGINOSIS/VAGINITIS 91735 C. PARAPSILOSIS , DNA DNR 09/27/2017 [facility] [place] [address] THINPREP TIS AND HPV mRNA E6/E7 86438 REPORT STATUS: DNR 09/27/2017 [facility] [place] [address] THINPREP TIS AND HPV mRNA E6/E7 40232 CLINICAL INFORMATION: 09/27/2017 [facility] [place] [address] THINPREP TIS AND HPV mRNA E6/E7 01332 LMP: 201709/27/2017 [facility] [place] [address] THINPREP TIS AND HPV mRNA E6/E7 69109 PREV. PAP: 09/27/2017 [facility] [place] [address] [place] [address] THINPREP TIS AND HPV mRNA E6/E7 42649 PREV. BX: 09/27/2017 [facility] [place] [address] [place] [address] [address] THINPREP TIS AND HPV mRNA E6/E7 07688 SOURCE: Cerv ix 09/27/2017 [facility] [place] [address] THINPREP TIS AND HPV mRNA E6/E7 98268 STATEMENT OF ADEQUACY: 09/27/2017 [facility] [place] [address] THINPREP TIS AND HPV mRNA E6/E7 32674 GENERAL CATEGORIZATION: DNR 09/27/2017 [facility] [place] [address] THINPREP TIS AND HPV mRNA E6/E7 75287 INTERPRETATION/RESULT: 09/27/2017 [facility] [place] [address] THINPREP TIS AND HPV mRNA E6/E7 85220 INFECTION: DNR 09/27/2017 [facility] [place] [address] THINPREP TIS AND HPV mRNA E6/E7 07135 COMMENT: 09/27/2017 [facility] [place] [address] THINPREP TIS AND HPV mRNA E6/E7 26956 POWER CHECKER: 09/27/2017 [facility] [place] [address] THINPREP TIS AND HPV mRNA E6/E7 56650 REVIEW POWER CHECKER: DNR 09/27/2017 [facility] [place] [address] [place] [address] THINPREP TIS AND HPV mRNA E6/E7 95602 PATHOLOGIST: KHLOE Srivastava 09/27/2017 [facility] [address] [place] [address] THINPREP TIS AND HPV mRNA E6/E7 87383 COMMENT 09/27/2017 [facility] [place] [address] THINPREP TIS AND HPV mRNA E6/E7 82992 HPV mRNA E6/E7 Not Detected 09/27/2017 [facility] [address] [place] [address] CULTURE, GENITAL 75588 CULTURE, GENITAL SEE NOTE [facility] [address] [place] [address] CULTURE, THROAT 98603 CULTURE, THROAT SEE NOTE 07/30 [facility] [address] [place] [address] Procedures Procedure Codes Date INFLUENZA ASSAY W/OPTIC CPT-4: 32522 03/26/2019 DEXAMETHASONE SODIUM PHOS CPT-4: J1100 03/26/2019 THER/PROPH/DIAG INJ SC/IM CPT-4: 07953 03/26/2019 TRIAMCINOLONE ACET INJ NOS CPT-4: J3301 03/26/2019 DRAIN/INJECT JOINT/BURSA CPT-4: 04174 01/23/2019 ROUTINE VENIPUNCTURE CPT-4: 33947 06/19/2018 COMPLETE CBC W/AUTO DIFF WBC CPT-4: 40963 06/19/2018 COMPREHEN METABOLIC PANEL CPT-4: 73755 06/19/2018 A1C HPLC CPT-4: 95449 06/19/2018 ASSAY THYROID STIM HORMONE CPT-4: 63268 06/19/2018 URINALYSIS NONAUTO W/O SCOPE CPT-4: 22642 06/19/2018 ACUTE HEPATITIS PANEL CPT-4: 78870 06/19/2018 INFLUENZA ASSAY W/OPTIC CPT-4: 07335 04/26/2018 STREP A ASSAY W/OPTIC CPT-4: 50846 04/25/2018 THROAT CULTURE CPT-4: 58377 04/25/2018 CEFTRIAXONE SODIUM INJECTION CPT-4: J0696 11/10/2017 DEXAMETHASONE SODIUM PHOS CPT-4: J1100 11/10/2017 THER/PROPH/DIAG INJ SC/IM CPT-4: 25309 11/10/2017 TRIAMCINOLONE ACET INJ NOS CPT-4: J3301 11/10/2017 OCCULT BLOOD FECES CPT-4: 65513 09/22/2017 SURESWAB(R), BACTERIAL VAGINOSIS/VAGINITIS CPT-4: 25884 09/22/2017 CULTURE, GENITAL CPT-4: 51442 09/22/2017 TDAP VACCINE 7 YRS/> IM CPT-4: 41321 11/30/2016 IMMUNIZATION ADMIN CPT-4: 10271 11/30/2016 REMOVAL OF FOOT FOREIGN BODY CPT-4: 80372 11/29/2016 REMOVAL OF SKIN TAGS <W/15 CPT-4: 48601 10/05/2016 CULTURE, THROAT CPT-4: 85708 08/16/2016 PNEUMOCOCCAL VACC 13 AYSHA IM CPT-4: 38611 03/09/2016 IMMUNIZATION ADMIN CPT-4: 83084 03/09/2016 THER/PROPH/DIAG INJ SC/IM CPT-4: 72111 12/11/2015 TRIAMCINOLONE ACET INJ NOS CPT-4: J3301 [...] 1: 126/84 Code: 8480-6 BMI: 39.9 Code: 28519-7 Heart Rate 1: 80 bpm Height: 5'2" [...] 1: 126/82 Code: 8480-6 BMI: 40.6 Code: 72666-5 Heart Rate 1: 72 bpm Height: 5'2" [...] 1: 124/68 Code: 8480-6 BMI: 41.7 Code: 67661-7 Heart Rate 1: 66 bpm Height: 5'2" Respiratory Rate: 20 bpm SpO2: 98% Tempera ture: 36.2 (C) / 97.2 (F) Weight: 228 lbs 09/22/2017 Blood Pressure 1: 142/80 Code: 8480-6 BMI: 41.3 Code: 59412-5 Heart Rate 1: 60 bpm Height: 5'2" Respiratory Rate: 20 bpm SpO2: 98% Tempera ture: 36.3 (C) / 97.3 (F) Weight: 226 lbs 07/05/2017 Blood Pressure 1: 129/82 Code: 8480-6 BMI: 42.3 Code: 78533-6 Heart Rate 1: 60 bpm Height: 5'2" SpO2: 97% Temperature: 36.4 (C) / 97.6 (F) Weight: 231 lbs 03/04/2017 Blood Pressure 1: 142/80 Code: 8480-6 BMI: 42.4 Code: 09798-4 Heart Rate 1: 74 bpm Height: 5'2" Respiratory Rate: 24 bpm SpO2: 97% Tempera ture: 36.4 (C) / 97.6 (F) Weight: 232 lbs 02/02/2017 Blood Pressure 1: 146/82 Code: 8480-6 BMI: 42.4 Code: 39719-3 Heart Rate 1: 84 bpm Height: 5'2" Respiratory Rate: 20 bpm SpO2: 98% Tempera ture: 36.6 (C) / 97.9 (F) Weight: 232 lbs 11/29/2016 Blood Pressure 1: 12678 Code: 8480-6 Heart Rate 1: 76 bpm Height: 5'2" Respiratory Rate: 20 bpm SpO2: 96% Temperature: 36 .9 (C) / 98.4 (F) 11/16/2016 Blood Pressure 1: 136/94 Code: 8480-6 BMI: 42.6 Code: 16509-9 Heart Rate 1: 68 bpm Height: 5'2" Respiratory Rate: 20 bpm SpO2: 96% Tempera ture: 36.9 (C) / 98.4 (F) Weight: 233 lbs 10/05/2016 Blood Pressure 1: 112/78 Code: 8480-6 BMI: 41.5 Code: 63710-2 Heart Rate 1: 80 bpm Height: 5'2" Respiratory Rate: 20 bpm SpO2: 97% Tempera ture: 36.8 (C) / 98.2 (F) Weight: 227 lbs 09/06/2016 Blood Pressure 1: 126/82 Code: 8480-6 BMI: 42.4 Code: 24683-2 Heart Rate 1: 64 bpm Height: 5'2" Respiratory Rate: 20 bpm SpO2: 98% Tempera ture: 37.0 (C) / 98.6 (F) Weight: 232 lbs 08/16/2016 Blood Pressure 1: 136/82 Code: 8480-6 BMI: 42.1 Code: 28045-1 Heart Rate 1: 72 bpm Height: 5'2" [...] 1: 144/80 Code: 8480-6 BMI: 40.4 Code: 22290-2 Heart Rate 1: 92 bpm Height: 5'2" Respiratory Rate: 20 bpm SpO2: 95% Tempera ture: 36.8 (C) / 98.2 (F) Weight: 221 lbs 12/08/2015 Blood Pressure 1: 124/78 Code: 8480-6 Heart Rate 1: 108 bpm Height: 5'2" Respiratory Rate: 22 bpm SpO2: 95% Temperature: 36.2 (C) / 97.2 (F) Weight: 12/01/2015 Blood Pressure 1: 124/78 Code: 8480-6 BMI: 40.4 Code: 91136-5 Heart Rate 1: 92 bpm Height: 5'2" [...] leg cough 11/10/2017 patient was seen at [facility] and given Levaquin and 5 day steroid well woman exam (40-65 years) 09/22/[address] Mammogram 2015 cough 07/05/2017 mucus, runny nose follow up [...] care Encounters Encounter Performer Location Codes Date ([id number]) OFFICE/OUTPATIENT VISIT EST Diagnosis: Type 2 diabetes mellitus with hyperglycemia[ICD10: E11.65] Diagnosis: Major depressive disorder, single episode, unspecified[ICD10: F32.9] Diagnosis: Anxiety and depression[ICD10: F41.9] Lisbethisi FELICIANO [place] CPT-4: 11701 04/30/2019 ([id number]) OFFICE/OUTPATIENT VISIT EST Diagnosis: Upper respiratory infection[ICD10: J06.9] Diagnosis: Viral syndrome[ICD10: B34.9] Lisbethisi GIMENEZ [place] CPT-4: 98766 03/26/2019 ([id number]) OFFICE/OUTPATIENT VISIT EST Diagnosis: Acute upper respiratory infection, unspecified[ICD10: J06.9] Diagnosis: Generalized anxiety disorder[ICD10: F41.1] Diagnosis: Type 2 diabetes mellitus with hyperglycemia[ICD10: E11.65] Diagnosis: Encounter for therapeutic drug level monitoring[ICD10: Z51.81] Lisbeth JARAMILLO [employer] CPT-4: 89741 10/31/2018 ([id number]) OFFICE/OUTPATIENT VISIT EST Diagnosis: Type 2 diabetes mellitus with hyperglycemia[ICD10: E11.65] Diagnosis: Essential (primary) hypertension[ICD10: I10] Nirmala JARAMILLO [employer] CPT-4: 23480 08/08/2018 ([id number]) OFFICE/OUTPATIENT VISIT EST Diagnosis: Essential (primary) hypertension[ICD10: I10] Diagnosis: Type 2 diabetes mellitus with hyperglycemia[ICD10: E11.65] Diagnosis: Other fatigue[ICD10: R53.83] Nirmala JARAMILLO [employer] CPT-4: 77791 07/06/2018 ([id number]) OFFICE/OUTPATIENT VISIT EST Diagnosis: Dizziness and giddiness[ICD10: R42] Diagnosis: Elevated blood-pressure reading, without diagnosis of hypertension[ICD10: R03.0] Shell Vega NIRMALA Shantal JARAMILLO [employer] CPT- 4: 82166 06/19/2018 ([id number]) OFFICE/OUTPATIENT VISIT EST Diagnosis: Essential (primary) hypertension[ICD10: I10] Diagnosis: Dizziness and giddiness[ICD10: R42] Shell RUIZ Shantal JARAMILLO [employer] CPT-4: 23271 06/13/2018 ([id number]) NURSE/OUTPATIENT VISIT EST Diagnosis: Influenza due to identified novel influenza A virus with other manifestations[ICD10: J09.X9] Nirmala JARAMILLO [employer] CPT-4: 93778 04/26/2018 OFFICE/OUTPATIENT VISIT EST Diagnosis: Pain in throat[ICD10: R07.0] Diagnosis: Acute pharyngitis, unspecified[ICD10: J02.9] Shell GIMENEZ Shantal JARAMILLO [employer] CPT-4: 97567 04/25/2018 ([id number]) OFFICE/OUTPATIENT VISIT EST Diagnosis: Acute sinusitis, unspecified[ICD10: J01.90] Diagnosis: Paresthesia of skin[ICD10: R20.2] Nirmala ORNELASLIN Joselito JARAMILLO [employer] CPT-4: 50347 04/14/2018 ([id number]) OFFICE/OUTPATIENT VISIT EST Diagnosis: Pain in right leg[ICD10: M79.604] Diagnosis: Sciatica, right side[ICD10: M54.31] Nirmala Dagoportia JOHNSONLashon RUIZ Shantal JARAMILLO [employer] CPT-4: 45976 01/31/2018 ([id number]) OFFICE/OUTPATIENT VISIT EST Diagnosis: Pain in right leg[ICD10: M79.604] Lisbeth JARAMILLO [employer] CPT-4: 55710 01/23/2018 ([id number]) OFFICE/OUTPATIENT VISIT EST Diagnosis: Acute bronchitis, unspecified[ICD10: J20.9] Lisbeth JARAMILLO [employer] CPT-4: 59404 11/10/2017 ([id number]) PREV VISIT EST AGE 40-64 Diagnosis: Encounter [...] Diagnosis: Nonalcoholic steatohepatitis (MOORE)[ICD10: K75.81] Lisbeth JARAMILLO [employer] CPT-4: 78694 09/22/2017 ([id number]) OFFICE/OUTPATIENT VISIT EST Diagnosis: Acute sinusitis, unspecified[ICD10: J01.90] Lisbeth JARAMILLO [employer] CPT-4: 50302 07/05/2017 OFFICE/OUTPATIENT VISIT EST Diagnosis: Pneumonia, unspecified organism[ICD10: J18.9] Lisbeth JARAMILLO DO [facility] CPT-4: 87134 03/04/2017 ([id number]) OFFICE/OUTPATIENT VISIT EST Diagnosis: Polycystic ovarian syndrome[ICD10: E28.2] Diagnosis: Abnormal levels of other serum enzymes[ICD10: R74.8] Diagnosis: Nonalcoholic steatohepatitis (MOORE)[ICD10: K75.81] Diagnosis: Impaired glucose tolerance (oral)[ICD10: R73.02] Nirmala JARAMILLO DO [facility] CPT-4: 66539 02/02/2017 ([id number]) OFFICE/OUTPATIENT VISIT EST Diagnosis: VACCINE FOR TDAP[ICD10: Z23] Nirmala JARAMILLO DO [facility] CPT-4: 80807 11/30/2016 ([id number]) OFFICE/OUTPATIENT VISIT EST Diagnosis: Cough[ICD10: R05] Diagnosis: Abnormal levels of other serum enzymes[ICD10: R74.8] Diagnosis: Family history of other endocrine, nutritional and metabolic diseases[ICD10: Z83.49] Nirmala JARAMILLO [employer] [facility] CPT-4: 37801 11/16/2016 ([id number]) OFFICE/OUTPATIENT VISIT EST Diagnosis: Cough[ICD10: R05] Diagnosis: Other seasonal allergic rhinitis[ICD10: J30.2] Diagnosis: Abnormal levels of other serum enzymes[ICD10: R74.8] Nirmala JARAMILLO [employer] [facility] CPT-4: 32038 09/06/2016 ([id number]) OFFICE/OUTPATIENT VISIT EST Diagnosis: Cough[ICD10: R05] Diagnosis: Polycystic ovarian syndrome[ICD10: E28.2] Nirmala JARAMILLO [employer] [facility] CPT-4: 91920 08/16/2016 ([id number]) OFFICE/OUTPATIENT VISIT EST Diagnosis: Acute bronchitis, unspecified[ICD10: J20.9] Diagnosis: Acute upper respiratory infection, unspecified[ICD10: J06.9] Ananya Lopez NIRMALA JARAMILLO [employer] [facility] CPT-4: 03704 06/23/2016 ([id number]) OFFICE/OUTPATIENT VISIT EST Diagnosis: PNEUMOCOCCAL VACCINE[ICD10: Z23] Nirmala JARAMILLO DO [employer] CPT-4: 66957 03/09/2016 ([id number]) OFFICE/OUTPATIENT VISIT EST Diagnosis: Pneumonia, unspecified organism[ICD10: J18.9] Diagnosis: Polycystic ovarian syndrome[ICD10: E28.2] Diagnosis: Generalized anxiety disorder[ICD10: F41.1] Nirmala JARAMILLO DO [facility] CPT-4: 84247 12/18/2015 ([id number]) OFFICE/OUTPATIENT VISIT EST Diagnosis: Cough[ICD10: R05] Diagnosis: Acute bronchospasm[ICD10: J98.01] Nirmala JARAMILLO DO [employer] CPT-4: 67049 12/11/2015 ([id number]) OFFICE/OUTPATIENT VISIT EST Diagnosis: Pneumonia, unspecified organism[ICD10: J18.9] Ananya JARAMILLO [employer] [facility] CPT-4: 88581 12/08/2015 OFFICE/OUTPATIENT VISIT NEW Diagnosis: Pneumonia, unspecified organism[ICD10: J18.9] Ananya JARAMILLO [employer] CPT-4: 79250 12/01/2015 Plan of Care Planned Activity Notes Codes Status Date Visit Diagnosis Plan: Anxiety and depression Discussio [...] ICD-9 : 300.00 ICD-10 : F41.9 04/30/2019 Visit Diagnosis Plan: Type 2 diabetes mellitus with hy perglycemia Discussion: will start victoza to take as directed with instructions on use in office. coupon card given to patient and instructed to call office if too expensive and will try other option. ICD-9 : 250.02 ICD-10 : E11.65 04/30/2019 Appointment: Lisbeth Kruger [address] [place], [place] [id number] MEDICATION REVIEW 04/30/2019 Patient Education: Rexulti- OptimizeRX Coupon [id number] https://www.[employer].MadeiraMadeira/samplemd/resources/getResource/61/1f60cx74-02t1-1of4-30 Completed 04/30/2019 Patient Education: Kumar 2-Ab- OptimizeRX Coupon 10 [id number] https://www.[employer]/samplemd/resources/getResource/61/oio95mzi-4fbk-91u8-c2 Completed 04/30/2019 Visit Diagnosis Plan: Upper respiratory infection Disc ussion: influenza neg. kenalog/dexa 40/4 given in office due to severity of symptoms and patient's hx of pneumonia. instructed to call office tomorrow with worsening symptoms, otherwise push fluids and cough syrup prn. ICD-9 : 465.9 ICD-10 : J06.9 03/26/2019 Appointment: Lisbeth Kruger [address] [place] [address] ACUTE ILLNESS 03/26/2019 Visit Diagnosis Plan: Tibial collateral bursitis of ri ght knee Discussion: Bursa injection as above PELON wrap/rest Notify in 1-2 weeks how knee is doing ICD-9 : 726.62 ICD-10 : M76.41 01/23/2019 Appointment: Nirmala Jaramillo WPtel: [facility] [address] ACUTE ILLNESS 01/23/2019 Care Plan: Referral Order SNOMED-CT : 30 0869173 Pending 01/23/2019 Visit Diagnosis Plan: Type 2 [...] ICD-10 : F41.1 10/31/2018 Appointment: Lisbeth Kruger [address] [place], [place] [id number] ACUTE ILLNESS 10/31/2018 Patient Education: Trulicity- OptimizeRX Coupon [id number] https://www.[employer]/sampleAegis Lightwave/resources/getResource/61/b382r7d9-f935-4q90-fl Completed 10/31/2018 Patient Education: Xanax- OptimizeRX Coupon [id number] https://www.[employer]/sampleAegis Lightwave/resources/getResource/61/vb07336j-9773-24r8-nr b2-341v671y6359.pdf Completed 10/31/2018 Patient Education: prednisone- OptimizeRX Coupon [id number] 386 https://www.[employer]Quant/sampleAegis Lightwave/resources/getResource/61/087nu746-6299-20l6-45 Completed 10/31/2018 Patient Education: ProAir HFA- OptimizeRX Coupon [id number] 600 https://www.[employer]Quant/sampleAegis Lightwave/resources/getResource/61/0ki54661-54k0-2045-61 Completed 10/31/2018 Visit Diagnosis Plan: Essential (primary) hypertension Discussion: Stable ICD-9 : 401.9 ICD-10 : I10 08/08/2018 Visit Diagnosis Plan: Type 2 diabetes mellitus with hy perglycemia Discussion: Lab discussed Accuchecks daily Continue current meds Check CMP and HbA1C end of September then fwup ICD-9 : 250.02 ICD-10 : E11.65 08/08/2018 Appointment: Nirmala [facility]illo [facility] [phone] [facility] [facility] 08/08/2018 Visit Diagnosis Plan: Essential [...] 780.79 ICD-10 : R53.83 07/06/2018 Appointment: Nirmala Jarmaillo WPtel: [address] [place], [place] [phone] FOLLOW UP 07/06/2018 Appointment: Nirmala Jaramillo WPtel: [address] [place], [place] [phone] [place] Consult 06/22/2018 Patient Education: lisinopril- OptimizeRX Coupon 08134 [id number] https://www.[employer].com/samplemd/resources/getResource/61/514s84f7-obw0-5371-ph Completed 06/22/2018 Visit Diagnosis Plan: Essential (primary) hypertension Discussion: Increased lisinopril from 5 QD to 20 mg QD. Labs today- CBC, CMP, TSH, A1C. UA today- trace protein. hematuria (patient on period). ICD-9 : 401.9 ICD-10 : I10 06/19/2018 Visit Diagnosis Plan: Dizziness and giddiness Discussi on: Recommend scheduling appt with transition assistant. ICD-9 : 780.4 ICD-10 : R42 06/19/2018 Appointment: Shell Vega [address] [facility] FOLLOW UP 06/19/2018 Visit Diagnosis Plan: Essential [...] ICD-10 : R42 06/13/2018 Appointment: Shell Vega [address] [place], [place] [id number] ACUTE ILLNESS 06/13/2018 Appointment: Nirmala Jaramillo WPtel: [address] [place] [address] FLU SWAB 04/26/2018 Visit Diagnosis Plan: Pain in throat Discussion: Rapid Strep A- negative Throat culture- pending. Will call patient with results. Prednisone 10 mg TID x 5 days. Supportive care- fluids, tylenol for pain, humidified air. ICD-9 : 784.1 ICD-10 : R07.0 04/25/2018 Appointment: Shell Vega [address] [place] [address] ACUTE ILLNESS 04/25/2018 Visit Plan: Saline nasal [...] : J01.90 04/14/2018 Appointment: Nirmala Jaramillo WPtel: [address] [place], [place] [phone] ACUTE ILLNESS 04/14/2018 Patient Education: prednisone- OptimizeRX Coupon [id number] https://www.[employer].MadeiraMadeira/ANT Farmmd/resources/getResource/61/8yeg67cu-t3v6-53h2-x4 Completed 04/14/2018 Visit Diagnosis Plan: Pain in right leg Discussion: Ch dickson right tib/fib x-ray and start celebrex May need PT ICD-9 : 729.5 ICD-10 : M79.604 01/31/2018 Visit Diagnosis Plan: Sciatica, right side Discussion: Check L/S spine x-ray ICD-9 : 724.3 ICD-10 : M54.31 01/31/2018 Appointment: Nirmala Jaramillo WPtel: [phone] [id number] FOLLOW UP 01/31/2018 Care Plan: X-RAY EXAM L-S SPINE 2/3 VWS LOINC : 90528-5 Pending 01/31/2018 Care Plan: X-RAY EXAM OF LOWER LEG LOINC : 40455-2 Pending 01/31/2018 Visit Diagnosis Plan: Pain in [...] ICD-10 : M79.604 01/23/2018 Appointment: [facility] [facility] 01/23/2018 Visit Diagnosis Plan: Acute [...] ICD-10 : J20.9 11/10/2017 Appointment: [facility]ru[facility] [facility] 11/10/2017 Patient Education: Patient Medication Summary Completed 11/10/2017 Care Plan: CHEST X-RAY 2VW FRONTAL&LATL LOINC : 15978-6 Pending 11/10/2017 Patient Education: Patient Medication Summary Completed 09/26/2017 Care Plan: A1C HPLC LOINC : 99118-5 Pending 09/26/2017 Visit Diagnosis Plan: Encounter for [facility] adult medical examination without abnormal findings Discussion: fasting blood work ordered t o be obtained at [facility] in the next few days when fasting. ICD-9 : V70.9 ICD-10 : Z00.00 09/22/2017 Visit Diagnosis Plan: Encounter for gyne [...] ICD-10 : R73.02 09/22/2017 Visit Diagnosis Plan: Encounter for screening for cindy gnant neoplasm of colon Discussion: rectal exam, ob stool obtained. negative for blood. ICD-9 : V76.51 ICD-10 : Z12.11 09/22/2017 Visit Diagnosis Plan: Generalized anxiety disorder Dis cussion: stable on lexapro but xanax refilled for #15 to only take as directed. ICD-9 : 308.0 ICD-10 : F41.1 09/22/2017 Visit Diagnosis Plan: Encounter for scre ening mammogram for malignant neoplasm of breast Discussion: mammogram ordered to be comp leted at [facility]. breast exam performed in office. ICD-9 : V76.11 ICD-10 : Z12.31 09/22/2017 Appointment: Lisbeth Kruger [facility] [address] Annual Well Visit 09/22/2017 Patient Education: [...] ICD-10 : J01.90 07/05/2017 Appointment: Lisbeth Kruger [address] [address] ACUTE ILLNESS 07/05/2017 Patient Education: Patient Medication [...] ICD-10 : J18.9 03/04/2017 Appointment: Lisbeth Kruger [address] FOLLOW UP 03/04/2017 Patient Education: Patient Medication [...] : R74.8 02/02/2017 Appointment: Nirmala Jaramillo WPtel: [address] [place] [address] FOLLOW UP 02/02/2017 Patient Education: Patient Medication Summary Completed 02/02/2017 Care Plan: Referral Order SNOMED-CT : 30 [id number] Pending 02/02/2017 Patient Education: Patient Medication Summary Completed 01/28/2017 Care Plan: ACUTE HEPATITIS PANEL LOINC : 39816-0 Pending 01/28/2017 Patient Education: Patient Medication Summary Completed 01/26/2017 Care Plan: COMPREHEN METABOLIC PANEL [place] : 93694-7 Pending 01/26/2017 Care Plan: A1C HPLC LOINC : 49649-8 Pending 01/26/2017 Appointment: Nirmala Jaramillo WPtel: [phone] [place] [address] [place] INJECTION 11/30/2016 Referral: Sva Goff[address] [place] [address] C&D [id number] Referral Initiated 11/30/2016 Patient Education: Patient Medication [...] : S90.852A 11/29/2016 Appointment: Nirmala Jaramillo WPtel: [address] [place], [place] [phone] ACUTE ILLNESS 11/29/2016 Patient Education: Patient Medication Summary Completed 11/29/2016 Visit Diagnosis Plan: Abnormal levels of other serum e nzymes Discussion: Check LFTs ICD-9 : 790.5 ICD-10 : R74.8 11/16/2016 Visit Diagnosis Plan: Cough Discussion: Check PFT Star t Protonix See pulmonology ICD-9 : 786.2 ICD-10 : R05 11/16/2016 Visit Diagnosis Plan: Family history of other endocrine, nutritional and metabolic diseases Discussion: Check TSH, Free T4, TT# Follow Up: As needed ICD-9 : V18.19 ICD-10 : Z83.49 11/16/2016 Appointment: Nirmala Jaramillo WPtel: [address] [place], [place] [phone] FOLLOW UP 11/16/2016 Patient Education: Patient Medication Summary Completed 11/16/2016 Care Plan: Referral Order SNOMED-CT : 30 8906708 Pending 11/16/2016 Appointment: Nirmala Jaramillo WPtel: [address] [place], [place] [phone] RESCHEDULED 11/08/2016 Visit Diagnosis Plan: Other hypertrophic disorders of the skin Discussion: Irritated skin tags excised at base and then bases cauterized ICD-9 : 701.9 ICD-10 : L91.8 10/05/2016 Appointment: Nirmlaa Jaramillo WPtel: [address] [place], [place] [id number] confirmed-sp OFFICE SURGERY 10/05/2016 Patient Education: Patient Medication Summary Completed 10/05/2016 Appointment: Nirmala Jar[facility]illo [facility]el: [phone] [facility] [place] Per doctor~sl 09/09 canceled due to work ~ CANC ELED 09/10/2016 Visit Diagnosis Plan: Cough Discussion: Continue zyrte c and singulair Add flonase If persists at up then will see ENT Follow Up: 2 months ICD-9 : 786.2 ICD-10 : R05 09/06/2016 Visit Diagnosis Plan: Other seasonal allergic rhinitis Discussion: As above ICD-9 : 477.9 ICD-10 : J30.2 09/06/2016 Visit Diagnosis Plan: Abnormal levels of other serum e nzymes Discussion: Update liver enzymes ICD-9 : 790.5 ICD-10 : R74.8 09/06/2016 Appointment: Nirmala Jaramillo WPtel: [facility] [place] 09/02 lm~ FOLLOW UP 09/06/2016 Patient Education: Patient Medication Summary Completed 09/06/2016 Patient Education: Patient Medication Summary Completed 08/18/2016 Care Plan: ACUTE HEPATITIS PANEL LOINC : 59840-6 Pending 08/18/2016 Care Plan: TICKBORNE DISEASE PANEL [...] : R05 08/16/2016 Appointment: Nirmala Jaramillo WPtel: [phone] [facility] [place] 08/13 confirmed `sl WORK IN 08/16/2016 Patient Education: Patient Medication Summary Completed 08/16/2016 Care Plan: MAMMOGRAM SCREENING Grandmother Juliane Sahu in late LOINC : 04225-0 Pending 08/16/2016 Patient Education: Patient Medication Summary Completed 07/27/2016 Visit Diagnosis Plan: Acute bronchitis, unspecified Di scussion: Rxs as above Borrow neb machine until home with hers if needed OTC meds reviewed Watch BSs closely Follow up if not improving ICD-9 : 466.0 ICD-10 : J20.9 06/23/2016 Appointment: John Ananya [address] [place] [address] ACUTE ILLNESS 06/23/2016 Patient Education: Patient Medication Summary Completed 06/23/2016 Appointment: Nirmala Jaramillo WPtel: [address] [place] [address] [place] INJECTION 03/09/2016 Patient Education: Patient Medication Summary Completed 03/09/2016 Appointment: Nirmala Jaramillo WPtel: [address] [place] [address] [place] INJECTION 02/16/2016 Visit Plan: Decrease Breo to 100/25mcg 1 p BID for another week Flu shot with Prevnar 13 next week if covered Refill metformin 12/18/2015 Appointment: Nirmala Jaramillo WPtel: [address] [place] [address] 12/16 confirmed`sl FOLLOW UP 12/18/2015 Patient Education: Patient Medication Summary Completed 12/18/2015 Patient Education: [facility] - Lexapro - $10 Off - Even Patien tIDs Completed 12/18/2015 Visit Plan: CXR negative Kenalog/Dexamet hasone today Add Breo 200 1p BID for 1 week then Breo 100 1 p BID Tussionex rx given Continue SVNs with albuterol BID Notify if worsening Recheck 1week 12/11/2015 Appointment: Nirmala Jaramillo WPtel: [address] [place] [address] ACUTE ILLNESS 12/11/2015 Patient Education: Patient Medication Summary Completed 12/11/2015 Visit Plan: Patient sounds and appears i mproved Continue mucinex, vit C, breathing treatments, humidifier, vicks, etc CXR on am and will call with report before the weekend Monitor for any return of concerning symptoms - fevers, chills, worsening cough, etc 12/08/2015 Appointment: [facility] [facility] 12/04 Lm~sl....confirmed-sp FOLLOW UP 11/28 Patient Education: Patient Medication Summary Completed 12/08/2015 Visit Plan: Finish levaquin ordered by [facility] Add above meds has nebulizer machine she can use Supportive care reviewed Monitor BS closely - glucometer and instructions on use given - reports history of "insulin resistance" Follow up in 1 week for recheck - will plan to get xray after she's off her meds to be sure infection resolved - follow up sooner if not continuing to improve 12/01/2015 Appointment: Ananya Lopez5 [facility] 11/30 lm ~sl NEW PATIENT 12/01/2015 Patient Education: Patient Medication Summary Completed 12/01/2015 Referral: Dhruv Montalvo WPtel: [phone] [facility] E [id number] [place] Referral Appointment Requested Referral: Chan Chavez WPtel: [address] [facility] 6 [id number] [place] Referral Completed Referral: Dhruv Lubin WPtel: [address] [facility] [address] Referral Initiated Instructions Comment . Saline nasal [...] cough, etc . Finish levaquin ordered by [facility] Add above meds has nebulizer machine she [...]
--- OUTSIDE RECORDS SUMMARY | 2019-05-18 13:14 | XMS REPORT | CCD ---
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 Name Role Phone Nirmala Jaramillo D.O., PP Unavailable CCM Unavailable Summary Purpose Interface Exchange Insurance Providers Payer name Policy type / Coverage type Covered green party ID Effective Begin Date Effective End Date [employer] Commercial Insurance [id number] Unknown Family History Family History data not found Social History Social History Element Codes Description Effective Dates Marital status Unknown 12/01/2015 Number of children Unknown 3 12/01/2015 Employment Unknown Currently employed 12/01/[address]: 671537425 Never smoker 12/01/[address]: 066102498 Never drinks alcohol 2015 Allergies, Adverse Reactions, Alerts Substance Reaction Codes Entered Date Inactivated Date Status * NO KNOWN FOOD ALLERGIES Unknown 12/01/2015 No Inactiv e Date Active * NO KNOWN ENVIRONMENTAL ALLERGIES Unknown 12/01/2015 N o Inactive Date Active _ reaction, Unknown 12/01/2015 No Inactive Date Active Problems Condition Codes Effective Dates Condition Status Upper respiratory infection ICD-9: 465.9 ICD-10: J06.9 [...] disorder ICD-9: 308.0 ICD-10: F41.1 12/17/2015 Active Type 2 diabetes mellitus with hyperglycemia ICD-9: 250 .02 ICD-10: E11.65 07/06/2018 Active Essential (primary) hypertension ICD-9: 401.9 ICD-10: [...] Start Date Stop Date Status Fill Instructions Lexapro 20 mg tablet RxNorm: 376551 TAKE 1 TABLET BY MOUTH EVERY DA Y 04/16/2019 06/14/2019 Active lisinopril 40 mg tablet RxNorm: 633033 TAKE 1 TABLET BY MOUTH E 04/04/2019 08/01/2019 Active Trulicity 0.75 mg/0.5 mL subcutaneous pen injector RxNorm: 1 776010 INJECT 1 DOSE SUB-Q ONCE WEEKLY 03/27/2019 05/21/2019 Active Zithromax Z-Ab 250 mg tablet RxNorm: 083577 Tablet(s) Oral jackson e as directed 03/27/2019 03/27/2019 Inactive Zithromax Z-Ab 250 mg tablet RxNorm: 899811 Tablet(s) Oral jackson e as directed 03/27/2019 03/26/2019 Inactive promethazine 6.25 mg-codeine 10 mg/5 mL syrup RxNorm: 611828 5 Milliliter(s) Oral Q4H as needed 03/26/2019 No Stop Date Active amlodipine 5 mg tablet RxNorm: 280276 TAKE 1 TABLET BY MOUTH 02/19/2019 05/19/2019 Active Trulicity 0.75 mg/0.5 mL subcutaneous pen injector RxNorm: 1 508162 INJECT 1 DOSE SUB-Q ONCE WEEKLY 02/19/2019 03/18/2019 Inactive Lexapro 20 mg tablet RxNorm: 982227 1 TABLET(S) PO QD 01/04/201905/2019 Inactive lisinopril 40 mg tablet RxNorm: 292784 1 TABLET(S) PO QD 12/05/2018 0 04/03/2019 Inactive scopolamine 1 mg over 3 days transdermal patch RxNorm: 88676 2 1 Application Transdermal Q72H 11/27/2018 11/26/2018 Inactive scopolamine 1 mg over 3 days transdermal patch RxNorm: 09798 2 1 Application Transdermal Q72H 11/27/2018 11/27/2018 Inactive ondansetron HCl 4 mg tablet RxNorm: 830021 1 Tablet(s) Oral Q4H as needed for nausea 11/27/2018 11/27/2018 Inactive ondansetron HCl 4 mg tablet RxNorm: 111663 1 Tablet(s) Oral Q4H as needed for nausea 11/27/2018 11/26/2018 Inactive amlodipine 5 mg tablet RxNorm: 501242 1 TABLET(S) PO QD 11/20/2018 Inactive Xanax 0.25 mg tablet RxNorm: 090022 1 Tablet(s) PO as needed 2018 No Stop Date Active ProAir HFA 90 mcg/actuation aerosol inhaler RxNorm: 282657 2 Puff(s) INH Q4H as needed 10/31/2018 No Stop Date Active if insurance das s not cover, please switch to ventolin. prednisone 20 mg tablet RxNorm: 482870 1 Tablet(s) PO BID 10/31/2018 11/04/2018 Inactive Zithromax Z-Ab 250 mg tablet RxNorm: 979587 Tablet(s) take as directed PO 10/31/2018 01/22/2019 Inactive Trulicity 0.75 mg/0.5 mL subcutaneous pen injector RxNorm: 1 668343 1 Unit Dose SQ QW 10/31/2018 02/18/2019 Inactive Ozempic 0.25 mg or 0.5 mg (2 mg/1.5 mL) subcutaneous p en injector RxNorm: 3601923 0.5 Milligram(s) SQ QW 10/09/2018 10/30/2018 Inactive Ozempic 0.25 mg or 0.5 mg (2 mg/1.5 mL) subcutaneous p en injector RxNorm: 4271642 0.5 Gram(s) SQ QW 10/05/2018 10/08/2018 Inactive lisinopril 40 mg tablet RxNorm: 286534 1 Tablet(s) PO QD 09/18/2018 1 Inactive metformin 1,000 mg tablet RxNorm: 208339 1 TABLET(S) PO QD 09/07/1903/04/2019 Inactive Trulicity 0.75 mg/0.5 mL subcutaneous pen injector RxNorm: 1 461310 0.75 Milligram(s) SQ QW Replaces Ozemic 08/28/2018 10/30/2018 Inactive replaces Ozempic Ozempic 0.25 mg or 0.5 mg (2 mg/1.5 mL) subcutaneous p en injector RxNorm: 2522186 0.5 Milligram(s) SQ WEEKLY 08/28/2018 10/05/2018 Inactive metformin 1,000 mg tablet RxNorm: 079535 1 Tablet(s) PO QD 08/24/1909/05/2018 Inactive Ozempic 0.25 mg or 0.5 mg (2 mg/1.5 mL) subcutaneous p en injector RxNorm: 4626008 0.5 Milligram(s) SQ WEEKLY 08/03/2018 08/27/2018 Inactive amlodipine 5 mg tablet RxNorm: 943558 1 Tablet(s) PO QD 07/25/2018 Inactive Lexapro 20 mg tablet RxNorm: 789895 1 Tablet(s) PO QD 07/10/201807/2018 Inactive lisinopril 40 mg tablet RxNorm: 194887 1 Tablet(s) PO QD 07/10/2018 0 09/07/2018 Inactive amlodipine 5 mg tablet RxNorm: 546501 1 Tablet(s) PO QD 06/22/2018 Inactive lisinopril 40 mg tablet RxNorm: 871878 1 Tablet(s) PO QD 06/22/2018 0 07/09/2018 Inactive lisinopril 20 mg tablet RxNorm: 318172 1 Tablet(s) PO QD 06/19/2018 0 06/21/2018 Inactive lisinopril 5 mg tablet RxNorm: 803533 1 Tablet(s) PO QD 06/13/2018 Inactive metformin 1,000 mg tablet RxNorm: 733541 Tablet(s) TABLET(S) 1 TABLET(S) PO QD 06/08/2018 08/22/2018 Inactive Tamiflu 75 mg capsule RxNorm: 373103 1 Capsule(s) PO BID 04/26/2018 0 04/30/2018 Inactive Tamiflu 75 mg capsule RxNorm: 588268 1 Capsule(s) PO BID 04/26/2018 0 04/25/2018 Inactive prednisone 10 mg tablet RxNorm: 965681 1 Tablet(s) PO TID 04/25/2018 04/29/2018 Inactive prednisone 20 mg tablet RxNorm: 075077 1 Tablet(s) PO BID 04/14/2018 04/20/2018 Inactive Augmentin 500 mg-125 mg tablet RxNorm: 937316 1 Tablet(s) PO BID 04/20/2018 Inactive metformin 1,000 mg tablet RxNorm: 985137 TABLET(S) 1 TABLET(S) PO Q D 03/09/2018 06/06/2018 Inactive celecoxib 200 mg capsule RxNorm: 329169 1 Capsule(s) PO BID for diana n 01/31/2018 03/01/2018 Inactive metformin 1,000 mg tablet RxNorm: 470963 1 Tablet(s) PO BID 018 No Stop Date Active Medrol (Ab) 4 mg tablets in a dose pack RxNorm: 690963 Tablet(s) PO take as directed 01/23/2018 01/30/2018 Inactive Lexapro 20 mg tablet RxNorm: 519427 Tablet(s) 1 TABLET(S) PO QD 06/21/2018 Inactive Lexapro 20 mg tablet RxNorm: 661732 Tablet(s) 1 TABLET(S) PO QD 07/201701/22/2018 Inactive metformin 1,000 mg tablet RxNorm: 739757 1 Tablet(s) PO BID 018 01/22/2018 Inactive Lexapro 20 mg tablet RxNorm: 595883 Tablet(s) 1 TABLET(S) PO QD 11/02/2017 Inactive metformin 1,000 mg tablet RxNorm: 757195 Tablet(s) 1 TABLET(S) PO Q D 09/22/2017 09/26/2017 Inactive Xanax 0.25 mg tablet RxNorm: 623050 1 Tablet(s) PO as needed 201710/30/2018 Inactive metformin 1,000 mg tablet RxNorm: 542087 Tablet(s) 1 TA BLET(S) PO QD NEEDS UPDATED LABS 09/06/2017 09/20/2017 Inactive metformin 1,000 mg tablet RxNorm: 501122 1 TABLET(S) PO QD NEED S UPDATED LABS 08/24/2017 09/05/2017 Inactive metformin 1,000 mg tablet RxNorm: 154242 1 Tablet(s) PO QD Need s updated labs 08/08/2017 08/22/2017 Inactive Lexapro 20 mg tablet RxNorm: 725374 1 TABLET(S) PO QD 07/17/201708/29 Inactive pseudoephedrine 30 mg tablet RxNorm: 6717183 1-2 Tablet(s) PO Q6H 0 07/05/2017 06/12/2018 Inactive Augmentin 875 mg-125 mg tablet RxNorm: 961202 1 Tablet(s) PO BID 07/14/2017 Inactive metformin 1,000 mg tablet RxNorm: 125633 1 Tablet(s) PO QD Need s updated labs 07/04/2017 08/08/2017 Inactive metformin 1,000 mg tablet RxNorm: 363092 1 Tablet(s) PO QD Need s updated labs 05/30/2017 07/04/2017 Inactive Levaquin 750 mg tablet RxNorm: 886772 1 Tablet(s) PO QD 03/04/2017 Inactive ProAir HFA 90 mcg/actuation aerosol inhaler RxNorm: 989233 2 Puff(s) INH Q4H as needed 03/04/2017 07/04/2017 Inactive if insurance das s not cover, please switch to ventolin. Tamiflu 75 mg capsule RxNorm: 822809 1 Capsule(s) PO QD 03/04/2017 Inactive metformin 1,000 mg tablet RxNorm: 877962 1 Tablet(s) PO QD 02/16/20 17 05/15/2017 Inactive Lexapro 20 mg tablet RxNorm: 268936 1 Tablet(s) PO QD 01/17/201707/2017 Inactive cephalexin 500 mg capsule RxNorm: 885176 1 Capsule(s) PO TID 201612/08/2016 Inactive pantoprazole 40 mg tablet,delayed release RxNorm: 986022 1 Tabl et(s) PO QD 11/16/2016 03/15/2017 Inactive metformin 1,000 mg tablet RxNorm: 079389 TAKE 1 TABLET BY MOUTH EVERY DAY 10/10/2016 02/15/2017 Inactive Flonase Allergy Relief 50 mcg/actuation nasal spray,suspensi on RxNorm: 1551914 2 [place] NASAL QHS 09/06/2016 11/15/2016 Inactive Singulair 10 mg tablet RxNorm: 678999 1 Tablet(s) PO QHS 09/06/2016 0 11/15/2016 Inactive Singulair 10 mg tablet RxNorm: 267590 1 Tablet(s) PO QHS 08/12/2016 0 09/05/2016 Inactive ProAir HFA 90 mcg/actuation aerosol inhaler RxNorm: 308894 1 Puff(s) INH Q4H as needed 08/12/2016 08/15/2016 Inactive Medrol (Ab) 4 mg tablets in a dose pack RxNorm: 050304 Tablet(s) PO As Directed 07/29/2016 08/15/2016 Inactive Lexapro 20 mg tablet RxNorm: 731876 1 Tablet(s) PO QD 07/06/201612/30 Inactive doxycycline hyclate 100 mg capsule RxNorm: 3173203 1 Capsule(s) PO BID 06/24/2016 06/23/2016 Inactive doxycycline hyclate 100 mg capsule RxNorm: 8155069 1 Capsule(s) PO BID 06/24/2016 07/03/2016 Inactive ProAir HFA 90 mcg/actuation aerosol inhaler RxNorm: 664751 1 Puff(s) INH Q4H as needed 06/23/2016 08/11/2016 Inactive prednisone 20 mg tablet RxNorm: 332648 1 Tablet(s) PO BID 06/23/2016 06/27/2016 Inactive metformin 1,000 mg tablet RxNorm: 648539 1 Tablet(s) PO QD 12/18/19 16 06/14/2016 Inactive Lexapro 20 mg tablet RxNorm: 261672 1 Tablet(s) PO QD 12/18/201510/2016 Inactive prednisone 20 mg tablet RxNorm: 051749 Take 3 tabs PO Q D x 3 days, then 2 tabs PO QD x 3 days, then 1 tab PO QD x 3 days 12/01/2015 12/10/2015 Inacti ve albuterol sulfate 2.5 mg/3 mL (0.083 %) solution for n ebulization RxNorm: 029780 3 Milliliter(s) INH Q4H as needed 12/01/2015 07/04/2017 Inactiv e Singulair 10 mg tablet RxNorm: 109649 1 Tablet(s) PO QHS No Start D ate 08/11/2016 Inactive Breo Ellipta 100 mcg-25 mcg/dose powder for inhalation RxNor m: 4714477 1 Puff(s) INH QD No Start Date 02/01/2017 Inactive Zyrtec 10 mg tablet RxNorm: 1599250 1 Tablet(s) PO QAM No Start Date 11/15/2016 Inactive Xanax 0.25 mg tablet RxNorm: 980044 1 Tablet(s) PO as needed No Sta rt Date 09/21/2017 Inactive metformin 1,000 mg tablet RxNorm: 767309 1 Tablet(s) PO QD No Start Date 12/17/2015 Inactive Singulair 10 mg tablet RxNorm: 844024 1 Tablet(s) PO QHS No Start D ate 11/15/2016 Inactive metformin 1,000 mg tablet RxNorm: 147695 1 Tablet(s) PO QD No Start Date 02/14/2017 Inactive metformin 1,000 mg tablet RxNorm: 263119 1 Tablet(s) PO BID No Star t Date 09/26/2017 Inactive Trulicity 0.75 mg/0.5 mL subcutaneous pen injector RxNorm: 1 969089 0.75 Milligram(s) SQ QW No Start Date 08/27/2018 Inactive Medrol (Ab) 4 mg tablets in a dose pack RxNorm: 855892 Tablet(s) PO As Directed No Start Date 07/28/2016 Inactive Lexapro 20 mg tablet RxNorm: 447586 1 Tablet(s) PO QD No Start Date 1 Inactive Lexapro 20 mg tablet RxNorm: 898427 1 Tablet(s) PO QD No Start Date 0 07/09/2018 Inactive Medication Administered No Medication Administered data Immunizations Vaccine Codes Date Status Tetanus, Diptheria, Pertussis CVX: 115 11/30/2016 Co mplete Pneumococcal CVX: 133 03/09/2016 Complete Results Observation Observation Code Item Item Code Result Date S ervice Location VIRAL HEPATITIS PROFILE #2 70004 Hep A IgM Non-Reactive 06/20/2018 Unknown VIRAL HEPATITIS PROFILE #2 17028 Hep B Core IgM Non-Reac tive 06/20/2018 Unknown VIRAL HEPATITIS PROFILE #2 14484 Hepatitis C Ab Non-Reac tive 06/20/2018 Unknown VIRAL HEPATITIS PROFILE #2 50487 Hep Bs Ag Non-Reactive 06/20/2018 Unknown MEAN GLUC 3702534 Calc Mean Gluc 194 mg/dL 06/19/2018 Unkn own COMPREHENSIVE METABOLIC 47962 AST 94 U/L 2018 Unknown COMPREHENSIVE METABOLIC 13509 ALT 160 U/L 2018 Unknown COMPREHENSIVE METABOLIC 32604 BUN 9 mg/dL 2018 Unknown COMPREHENSIVE METABOLIC 70635 ALBUMIN 4.6 g/dL 2018 Unknown COMPREHENSIVE METABOLIC 30091 CHLORIDE 101 mmol/L 06/19 Unknown COMPREHENSIVE METABOLIC 32218 Bili Total 0.9 mg/dL 06/19 Unknown COMPREHENSIVE METABOLIC 28357 ALK PHOS 64 U/L 2018 Unknown COMPREHENSIVE METABOLIC 48969 SODIUM 136 mmol/L 06/19 Unknown COMPREHENSIVE METABOLIC 85295 CREATININE 0.58 mg/dL 05/30 Unknown COMPREHENSIVE METABOLIC 37520 CALCIUM 10.3 mg/dL 06/19 Unknown COMPREHENSIVE METABOLIC 20507 POTASSIUM 3.7 mmol/L 06/19 Unknown COMPREHENSIVE METABOLIC 13297 Total Protein 7.1 g/dL Unknown COMPREHENSIVE METABOLIC 30160 Glucose 187 mg/dL 2018 Unknown COMPREHENSIVE METABOLIC 14691 Bicarbonate 26 mmol/L 05/30 Unknown COMPREHENSIVE METABOLIC 27594 AGAP 9 mmol/L 2018 Unknown GLYCOSYLATED HEMOGLOBIN TEST 36153 Hgb A1c 91034-8 8.4 % 0 06/19/2018 Unknown COMPLETE BLOOD COUNT 0181315 WBC 6.2 10e9/L 06/20/19 19 Unknown COMPLETE BLOOD COUNT 1191883 RBC 4.70 10e12/L 2018 Unknown COMPLETE BLOOD COUNT 9247383 HEMOGLOBIN 13.4 g/dL 06/20/19 19 Unknown COMPLETE BLOOD COUNT 5853364 HEMATOCRIT 39.9 % 06/20/19 19 Unknown COMPLETE BLOOD COUNT 5678551 MCV 84.9 fL 9 Unknown COMPLETE BLOOD COUNT 4197046 MCH 28.5 pg 9 Unknown COMPLETE BLOOD COUNT 3163284 MCHC 33.6 g/dL 9 Unknown COMPLETE BLOOD COUNT 5472486 PLATELET COUNT 252 10e9/L Unknown COMPLETE BLOOD COUNT 0461192 Mean Plt Volume 12.2 fL Unknown COMPLETE BLOOD COUNT 2900503 Neut Auto 53.9 % 9 Unknown COMPLETE BLOOD COUNT 0834773 Lymph Auto 35.2 % 06/20/19 19 Unknown COMPLETE BLOOD COUNT 4785539 [place] Auto 7.1 % 9 Unknown COMPLETE BLOOD COUNT [id number] RDW 14.1 % 9 Unknown COMPLETE BLOOD COUNT 3626479 Eos Auto 3.2 % 9 Unknown COMPLETE BLOOD COUNT 5205907 Baso Auto 0.6 % 9 Unknown COMPLETE BLOOD COUNT 4811767 Neutrophil Abs 3.34 10e9/L Unknown COMPLETE BLOOD COUNT 9465686 Lymphocyte Abs 2.18 10e9/L Unknown COMPLETE BLOOD COUNT 4457393 Monocyte Abs 0.44 10e9/L 05/30 Unknown COMPLETE BLOOD COUNT 1096094 Eosinophil Abs 0.20 10e9/L Unknown COMPLETE BLOOD COUNT 7947248 Basophil Abs 0.04 10e9/L 05/30 Unknown COMPLETE BLOOD COUNT 9990593 RDW-SD 42.7 fL 9 Unknown THYROID STIMULATING HORMONE 63342 TSH 1.976 uIU/mL 06/19/2018 Unknown GFR CALC 3017654 GFR Non Afr Amr >60 mL/min 06/19/2018 Un known GFR CALC 2990379 GFR Afr Amr >60 mL/min 06/19/2018 Unknow n SURESWAB(R), BACTERIAL VAGINOSIS/VAGINITIS 48240 BV CATEGORY: TNP 09/27/2017 [facility] [address] [place] [address] SURESWAB(R), BACTERIAL VAGINOSIS/VAGINITIS 44217 LACTOBACILLUS S PECIES DNR 09/27/2017 [facility] [address] [place] [address] SURESWAB(R), BACTERIAL VAGINOSIS/VAGINITIS 22303 ATOPOBIUM VAGIN AE DNR 09/27/2017 [facility] [address] [place] [address] SURESWAB(R), BACTERIAL VAGINOSIS/VAGINITIS 32103 MEGASPHAERA SPE CIES DNR 09/27/2017 [facility] [address] [place] [address] SURESWAB(R), BACTERIAL VAGINOSIS/VAGINITIS 62057 GARDNERELLA VAG INALIS DNR 09/27/2017 [facility] [address] [place] [address] SURESWAB(R), BACTERIAL VAGINOSIS/VAGINITIS 08810 SURESWAB(R) TRICHOMONAS VAGINALIS RNA, QL TMA TNP 09/27/2017 [facility] [address] [place] [address] SURESWAB(R), BACTERIAL VAGINOSIS/VAGINITIS 37420 C. ALBICANS, DN A TNP 09/27/2017 [facility] [address] [place] [address] SURESWAB(R), BACTERIAL VAGINOSIS/VAGINITIS 79554 C. GLABRATA, DN A DNR 09/27/2017 [facility] [address] [place] [address] SURESWAB(R), BACTERIAL VAGINOSIS/VAGINITIS 00664 C. TROPICALIS, DNA DNR 09/27/2017 [facility] [address] [place] [address] SURESWAB(R), BACTERIAL VAGINOSIS/VAGINITIS 48496 C. PARAPSILOSIS , DNA DNR 09/27/2017 [facility] [place] [address] THINPREP TIS AND HPV mRNA E6/E7 36381 REPORT STATUS: DNR 09/27/2017 [place] [address] THINPREP TIS AND HPV mRNA E6/E7 22030 CLINICAL INFORMATION: 09/27/2017 [place] [address] THINPREP TIS AND HPV mRNA E6/E7 79167 LMP: 201709/27/2017 [place] [address] THINPREP TIS AND HPV mRNA E6/E7 74950 PREV. PAP: 09/27/2017 [place] [address] THINPREP TIS AND HPV mRNA E6/E7 19521 PREV. BX: 09/27/2017 [place] [address] THINPREP TIS AND HPV mRNA E6/E7 72671 SOURCE: Cerv ix 09/27/2017 [place] [address] THINPREP TIS AND HPV mRNA E6/E7 31801 STATEMENT OF ADEQUACY: 09/27/2017 [place] [address] THINPREP TIS AND HPV mRNA E6/E7 25866 GENERAL CATEGORIZATION: DNR 09/27/2017 [place] [address] THINPREP TIS AND HPV mRNA E6/E7 63817 INTERPRETATION/RESULT: 09/27/2017 [place] [address] [address] THINPREP TIS AND HPV mRNA E6/E7 71257 INFECTION: DNR 09/27/2017 [place] [address] THINPREP TIS AND HPV mRNA E6/E7 23063 COMMENT: 09/27/2017 [facility] [place] [address] THINPREP TIS AND HPV mRNA E6/E7 58509 HAZARDOUS WASTE REMOVER: 09/27/2017 [place] [address] THINPREP TIS AND HPV mRNA E6/E7 51689 REVIEW HAZARDOUS WASTE REMOVER: DNR 09/27/2017 [place] [address] THINPREP TIS AND HPV mRNA E6/E7 04124 PATHOLOGIST: KHLOE Srivastava 09/27/2017 [place] [place] [address] THINPREP TIS AND HPV mRNA E6/E7 57501 COMMENT 09/27/2017 [facility] [address] THINPREP TIS AND HPV mRNA E6/E7 61071 HPV mRNA E6/E7 Not Detected 09/27/2017 [facility] [place] [address] CULTURE, GENITAL 05117 CULTURE, GENITAL SEE NOTE [place] [address] CULTURE, THROAT 47169 CULTURE, THROAT SEE NOTE 07/30 [facility] [place] [address] Procedures Procedure Codes Date INFLUENZA ASSAY W/OPTIC CPT-4: 36121 03/26/2019 DEXAMETHASONE SODIUM PHOS CPT-4: J1100 03/26/2019 THER/PROPH/DIAG INJ SC/IM CPT-4: 53006 03/26/2019 TRIAMCINOLONE ACET INJ NOS CPT-4: J3301 03/26/2019 DRAIN/INJECT JOINT/BURSA CPT-4: 14439 01/23/2019 ROUTINE VENIPUNCTURE CPT-4: 72908 06/19/2018 COMPLETE CBC W/AUTO DIFF WBC CPT-4: 32528 06/19/2018 COMPREHEN METABOLIC PANEL CPT-4: 26485 06/19/2018 A1C HPLC CPT-4: 40808 06/19/2018 ASSAY THYROID STIM HORMONE CPT-4: 35238 06/19/2018 URINALYSIS NONAUTO W/O SCOPE CPT-4: 41855 06/19/2018 ACUTE HEPATITIS PANEL CPT-4: 72455 06/19/2018 INFLUENZA ASSAY W/OPTIC CPT-4: 72348 04/26/2018 STREP A ASSAY W/OPTIC CPT-4: 27281 04/25/2018 THROAT CULTURE CPT-4: 16609 04/25/2018 CEFTRIAXONE SODIUM INJECTION CPT-4: J0696 11/10/2017 DEXAMETHASONE SODIUM PHOS CPT-4: J1100 11/10/2017 THER/PROPH/DIAG INJ SC/IM CPT-4: 12074 11/10/2017 TRIAMCINOLONE ACET INJ NOS CPT-4: J3301 11/10/2017 OCCULT BLOOD FECES CPT-4: 85592 09/22/2017 SURESWAB(R), BACTERIAL VAGINOSIS/VAGINITIS CPT-4: 30841 09/22/2017 CULTURE, GENITAL CPT-4: 58640 09/22/2017 TDAP VACCINE 7 YRS/> IM CPT-4: 24545 11/30/2016 IMMUNIZATION ADMIN CPT-4: 82266 11/30/2016 REMOVAL OF FOOT FOREIGN BODY CPT-4: 32014 11/29/2016 REMOVAL OF SKIN TAGS <W/15 CPT-4: 26560 10/05/2016 CULTURE, THROAT CPT-4: 57987 08/16/2016 PNEUMOCOCCAL VACC 13 AYSHA IM CPT-4: 49130 03/09/2016 IMMUNIZATION ADMIN CPT-4: 52164 03/09/2016 THER/PROPH/DIAG INJ SC/IM CPT-4: 68376 12/11/2015 TRIAMCINOLONE ACET INJ NOS CPT-4: J3301 12/11/2015 DEXAMETHASONE SODIUM PHOS CPT-4: J1100 12/11/2015 Vital Signs Date Vital 03/26/2019 Blood Pressure 1: 137/82 Code: 8480-6 [...] 1: 126/84 Code: 8480-6 BMI: 39.9 Code: 44355-0 Heart Rate 1: 80 bpm Height: 5'2" [...] 1: 126/82 Code: 8480-6 BMI: 40.6 Code: 01982-3 Heart Rate 1: 72 bpm Height: 5'2" [...] 1: 124/68 Code: 8480-6 BMI: 41.7 Code: 07303-0 Heart Rate 1: 66 bpm Height: 5'2" Respiratory Rate: 20 bpm SpO2: 98% Tempera ture: 36.2 (C) / 97.2 (F) Weight: 228 lbs 09/22/2017 Blood Pressure 1: 142/80 Code: 8480-6 BMI: 41.3 Code: 48318-3 Heart Rate 1: 60 bpm Height: 5'2" Respiratory Rate: 20 bpm SpO2: 98% Tempera ture: 36.3 (C) / 97.3 (F) Weight: 226 lbs 07/05/2017 Blood Pressure 1: 129/82 Code: 8480-6 BMI: 42.3 Code: 46863-2 Heart Rate 1: 60 bpm Height: 5'2" SpO2: 97% Temperature: 36.4 (C) / 97.6 (F) Weight: 231 lbs 03/04/2017 Blood Pressure 1: 142/80 Code: 8480-6 BMI: 42.4 Code: 31405-9 Heart Rate 1: 74 bpm Height: 5'2" Respiratory Rate: 24 bpm SpO2: 97% Tempera ture: 36.4 (C) / 97.6 (F) Weight: 232 lbs 02/02/2017 Blood Pressure 1: 146/82 Code: 8480-6 BMI: 42.4 Code: 74125-6 Heart Rate 1: 84 bpm Height: 5'2" Respiratory Rate: 20 bpm SpO2: 98% Tempera ture: 36.6 (C) / 97.9 (F) Weight: 232 lbs 11/29/2016 Blood Pressure 1: 126/78 Code: 8480-6 Heart Rate 1: 76 bpm Height: 5'2" Respiratory Rate: 20 bpm SpO2: 96% Temperature: 36 .9 (C) / 98.4 (F) 11/16/2016 Blood Pressure 1: 136/94 Code: 8480-6 BMI: 42.6 Code: 94772-3 Heart Rate 1: 68 bpm Height: 5'2" Respiratory Rate: 20 bpm SpO2: 96% Tempera ture: 36.9 (C) / 98.4 (F) Weight: 233 lbs 10/05/2016 Blood Pressure 1: 112/78 Code: 8480-6 BMI: 41.5 Code: 19337-5 Heart Rate 1: 80 bpm Height: 5'2" Respiratory Rate: 20 bpm SpO2: 97% Tempera ture: 36.8 (C) / 98.2 (F) Weight: 227 lbs 09/06/2016 Blood Pressure 1: 126/82 Code: 8480-6 BMI: 42.4 Code: 61301-7 Heart Rate 1: 64 bpm Height: 5'2" Respiratory Rate: 20 bpm SpO2: 98% Tempera ture: 37.0 (C) / 98.6 (F) Weight: 232 lbs 08/16/2016 Blood Pressure 1: 136/82 Code: 8480-6 BMI: 42.1 Code: 86022-7 Heart Rate 1: 72 bpm Height: 5'2" [...] 1: 144/80 Code: 8480-6 BMI: 40.4 Code: 43220-1 Heart Rate 1: 92 bpm Height: 5'2" Respiratory Rate: 20 bpm SpO2: 95% Tempera ture: 36.8 (C) / 98.2 (F) Weight: 221 lbs 12/08/2015 Blood Pressure 1: 124/78 Code: 8480-6 Heart Rate 1: 108 bpm Height: 5'2" Respiratory Rate: 22 bpm SpO2: 95% Temperature: 36.2 (C) / 97.2 (F) Weight: 12/01/2015 Blood Pressure 1: 124/78 Code: 8480-6 BMI: 40.4 Code: 09644-5 Heart Rate 1: 92 bpm Height: 5'2" Respiratory Rate: 24 bpm SpO2: 93% Tempera ture: 35.6 (C) / 96.0 (F) Weight: 221 lbs Functional Status No Functional Status data Reason For Visit Reason For Visit Effective Dates Notes headache 03/26/2019 knee pain 01/23/2019 headache 10/31/2018 [...] leg cough 11/10/2017 patient was seen at [facility] and given Levaquin and 5 day [...] care Encounters Encounter Performer Location Codes Date ([id number]) OFFICE/OUTPATIENT VISIT EST Diagnosis: Upper respiratory infection[ICD10: J06.9] Diagnosis: Viral syndrome[ICD10: B34.9] Lisbeth Saskia NIRMALA S. ORENDER DO [facility] CPT-4: 55124 03/26/2019 ([id number]) OFFICE/OUTPATIENT VISIT EST Diagnosis: Acute upper respiratory infection, unspecified[ICD10: J06.9] Diagnosis: Generalized anxiety disorder[ICD10: F41.1] Diagnosis: Type 2 diabetes mellitus with hyperglycemia[ICD10: E11.65] Diagnosis: Encounter for therapeutic drug level monitoring[ICD10: Z51.81] Lisbeth JARAMILLO DO [facility] CPT-4: 00291 10/31/2018 ([id number]) OFFICE/OUTPATIENT VISIT EST Diagnosis: Type 2 diabetes mellitus with hyperglycemia[ICD10: E11.65] Diagnosis: Essential (primary) hypertension[ICD10: I10] Nirmala JARAMILLO DO [facility] CPT-4: 39200 08/08/2018 ([id number]) OFFICE/OUTPATIENT VISIT EST Diagnosis: Essential (primary) hypertension[ICD10: I10] Diagnosis: Type 2 diabetes mellitus with hyperglycemia[ICD10: E11.65] Diagnosis: Other fatigue[ICD10: R53.83] Nirmala JARAMILLO [employer] [facility] CPT-4: 69996 07/06/2018 ([id number]) OFFICE/OUTPATIENT VISIT EST Diagnosis: Dizziness and giddiness[ICD10: R42] Diagnosis: Elevated blood-pressure reading, without diagnosis of hypertension[ICD10: R03.0] Shell GIMENEZ Shantal JARAMILLO [employer] [facility] CPT- 4: 26505 06/19/2018 ([id number]) OFFICE/OUTPATIENT VISIT EST Diagnosis: Essential (primary) hypertension[ICD10: I10] Diagnosis: Dizziness and giddiness[ICD10: R42] Shell RUIZ Shantal JARAMILLO [employer] [facility] CPT-4: 80907 06/13/2018 ([id number]) NURSE/OUTPATIENT VISIT EST Diagnosis: Influenza due to identified novel influenza A virus with other manifestations[ICD10: J09.X9] Nirmala JARAMILLO [employer] [facility] CPT-4: 01018 04/26/2018 OFFICE/OUTPATIENT VISIT EST Diagnosis: Pain in throat[ICD10: R07.0] Diagnosis: Acute pharyngitis, unspecified[ICD10: J02.9] Shell ORNELASLINE Shantal JARAMILLO [employer] CPT-4: 85142 04/25/2018 ([id number]) OFFICE/OUTPATIENT VISIT EST Diagnosis: Acute sinusitis, unspecified[ICD10: J01.90] Diagnosis: Paresthesia of skin[ICD10: R20.2] Nirmala Asifthierno Yee JeremyZee ROSCOE [employer] CPT-4: 78481 04/14/2018 ([id number]) OFFICE/OUTPATIENT VISIT EST Diagnosis: Pain in right leg[ICD10: M79.604] Diagnosis: Sciatica, right side[ICD10: M54.31] Nirmala Dagoportia RUIZ Shantal JARAMILLO [employer] CPT-4: 91403 01/31/2018 ([id number]) OFFICE/OUTPATIENT VISIT EST Diagnosis: Pain in right leg[ICD10: M79.604] Lisbeth Kruger RYLAND E JeremyZee ROSCOE [employer] CPT-4: 00772 01/23/2018 ([id number]) OFFICE/OUTPATIENT VISIT EST Diagnosis: Acute bronchitis, unspecified[ICD10: J20.9] Lisbeth ORNELASLINE Shantal JARAMILLO [employer] CPT-4: 07227 11/10/2017 ([id number]) PREV VISIT EST AGE 40-64 Diagnosis: Encounter [...] R74.8] Diagnosis: Nonalcoholic steatohepatitis (MOORE)[ICD10: K75.81] Lisbeth ORNELASLINE Shantal JARAMILLO [employer] CPT-4: 84206 09/22/2017 ([id number]) OFFICE/OUTPATIENT VISIT EST Diagnosis: Acute sinusitis, unspecified[ICD10: J01.90] Lisbeth JARAMILLO DO [facility] CPT-4: 14799 07/05/2017 OFFICE/OUTPATIENT VISIT EST Diagnosis: Pneumonia, unspecified organism[ICD10: J18.9] Lisbeth JARAMILLO DO [facility] CPT-4: 93895 03/04/2017 ([id number]) OFFICE/OUTPATIENT VISIT EST Diagnosis: Polycystic ovarian syndrome[ICD10: E28.2] Diagnosis: Abnormal levels of other serum enzymes[ICD10: R74.8] Diagnosis: Nonalcoholic steatohepatitis (MOORE)[ICD10: K75.81] Diagnosis: Impaired glucose tolerance (oral)[ICD10: R73.02] Nirmala JARAMILLO DO [facility] CPT-4: 83279 02/02/2017 ([id number]) OFFICE/OUTPATIENT VISIT EST Diagnosis: VACCINE FOR TDAP[ICD10: Z23] Nirmala JARAMILLO DO [facility] CPT-4: 59392 11/30/2016 ([id number]) OFFICE/OUTPATIENT VISIT EST Diagnosis: Cough[ICD10: R05] Diagnosis: Abnormal levels of other serum enzymes[ICD10: R74.8] Diagnosis: Family history of other endocrine, nutritional and metabolic diseases[ICD10: Z83.49] Nirmala JARAMILLO DO [facility] CPT-4: 71003 11/16/2016 ([id number]) OFFICE/OUTPATIENT VISIT EST Diagnosis: Cough[ICD10: R05] Diagnosis: Other seasonal allergic rhinitis[ICD10: J30.2] Diagnosis: Abnormal levels of other serum enzymes[ICD10: R74.8] Nirmala JARAMILLO DO [facility] CPT-4: 80740 09/06/2016 ([id number]) OFFICE/OUTPATIENT VISIT EST Diagnosis: Cough[ICD10: R05] Diagnosis: Polycystic ovarian syndrome[ICD10: E28.2] Nirmala JARAMILLO DO [facility] CPT-4: 90990 08/16/2016 ([id number]) OFFICE/OUTPATIENT VISIT EST Diagnosis: Acute bronchitis, unspecified[ICD10: J20.9] Diagnosis: Acute upper respiratory infection, unspecified[ICD10: J06.9] Ananya JARAMILLO [facility] CPT-4: 83551 06/23/2016 ([id number]) OFFICE/OUTPATIENT VISIT EST Diagnosis: PNEUMOCOCCAL VACCINE[ICD10: Z23] Nirmala JARAMILLO [facility] CPT-4: 61659 03/09/2016 ([id number]) OFFICE/OUTPATIENT VISIT EST Diagnosis: Pneumonia, unspecified organism[ICD10: J18.9] Diagnosis: Polycystic ovarian syndrome[ICD10: E28.2] Diagnosis: Generalized anxiety disorder[ICD10: F41.1] Nirmala JARAMILLO [facility] CPT-4: 27462 12/18/2015 ([id number]) OFFICE/OUTPATIENT VISIT EST Diagnosis: Cough[ICD10: R05] Diagnosis: Acute bronchospasm[ICD10: J98.01] Nirmala JARAMILLO [facility] CPT-4: 78260 12/11/2015 ([id number]) OFFICE/OUTPATIENT VISIT EST Diagnosis: Pneumonia, unspecified organism[ICD10: J18.9] Ananya JARAMILLO [facility] CPT-4: 27791 12/08/2015 OFFICE/OUTPATIENT VISIT NEW Diagnosis: Pneumonia, unspecified organism[ICD10: J18.9] Ananya JARAMILLO [facility] CPT-4: 47991 12/01/2015 Plan of Care Planned Activity Notes Codes Status Date Visit Diagnosis Plan: Upper respiratory infection Disc ussion: influenza neg. kenalog/dexa 40/4 given in office due to severity of symptoms and patient's hx of pneumonia. instructed to call office tomorrow with worsening symptoms, otherwise push fluids and cough syrup prn. ICD-9 : 465.9 ICD-10 : J06.9 03/26/2019 Appointment: Lisbeth Kruger [address] [place], [place] [phone] ACUTE ILLNESS 03/26/2019 Visit Diagnosis Plan: Tibial collateral bursitis of ri ght knee Discussion: Bursa injection as above PELON wrap/rest Notify in 1-2 weeks how knee is doing ICD-9 : 726.62 ICD-10 : M76.41 01/23/2019 Appointment: Nirmala Jaramillo WPtel: [phone] [id number] ACUTE ILLNESS 01/23/2019 Care Plan: Referral Order SNOMED-CT : 30 3503969 Pending 01/23/2019 Visit Diagnosis Plan: Generalized anxiety disorder Dis cussion: stable on xanax, refilled at this time. ICD-9 : 308.0 ICD-10 : F41.1 10/31/2018 Visit Diagnosis Plan: Type 2 diabetes mellitus [...] ICD-9 : 465.9 ICD-10 : J06.9 10/31/2018 Appointment: Lisbeth Kruger [address] [place], [place] [id number] ACUTE ILLNESS 10/31/2018 Patient Education: Trulicity- [employer] C[employer]on [id number] https://www.Taomee/samplemd/resources/getResource/61/b296i6c1-v615-4t14-tl Completed 10/31/2018 Patient Education: Xanax- [employer] Coupon [id number] https://www.Taomee/samplemd/resources/getResource/61/um98195l-3403-96x0-lu b2-116g411y0806.pdf Completed 10/31/2018 Patient Education: prednisone- [employer] Coupon 61442 [phone] https://www.Taomee/samplemd/resources/getResource/61/603gm004-5646-49h1-64 Completed 10/31/2018 Patient Education: Air HFA- [employer] Coupon 44633 600 https://www.Taomee/ScrollMotion/resources/getResource/61/6gh14508-04l6-8862-33 Completed 10/31/2018 Visit Diagnosis Plan: Type 2 diabetes mellitus with hy perglycemia Discussion: Lab discussed Accuchecks daily Continue current meds Check CMP and HbA1C end of September then fwup ICD-9 : 250.02 ICD-10 : E11.65 08/08/2018 Visit Diagnosis Plan: Essential (primary) hypertension Discussion: Stable ICD-9 : 401.9 ICD-10 : I10 08/08/2018 Appointment: Nirmala Jaramillo WPtel: [address] [place] [address] [place] FOLLOW UP 08/08/2018 Visit Diagnosis Plan: Essential [...] : R53.83 07/06/2018 Appointment: Nirmala Jaramillo WPtel: [address] [place], [place] [phone] [place] FOLLOW UP 07/06/2018 Appointment: Nirmala Jaramillo WPtel: [address] [place], [place] [phone] [place] Consult 06/22/2018 Patient Education: lisinopril- [employer] Coupon [phone] https://www.samplemd.com/samplemd/resources/getResource/61/253r64y3-qix7-4887-ff Completed 06/22/2018 Visit Diagnosis Plan: Essential (primary) hypertension Discussion: Increased lisinopril from 5 QD to 20 mg QD. Labs today- CBC, CMP, TSH, A1C. UA today- trace protein. hematuria (patient on period). ICD-9 : 401.9 ICD-10 : I10 06/19/2018 Visit Diagnosis Plan: Dizziness and giddiness Discussi on: Recommend scheduling appt with paper slitter. ICD-9 : 780.4 ICD-10 : R42 06/19/2018 Appointment: Shell Vega [address] [place] [address] FOLLOW UP 06/19/2018 Visit Diagnosis Plan: Essential [...] ICD-10 : R42 06/13/2018 Appointment: Shell Vega [address] [place], [place] [phone] ACUTE ILLNESS 06/13/2018 Appointment: Nirmala Jaramillo WPtel: [facility] [id number] FLU SWAB 04/26/2018 Visit Diagnosis Plan: Pain in throat Discussion: Rapid Strep A- negative Throat culture- pending. Will call patient with results. Prednisone 10 mg TID x 5 days. Supportive care- fluids, tylenol for pain, humidified air. ICD-9 : 784.1 ICD-10 : R07.0 04/25/2018 Appointment: Shell Vega [address] [place], [place] [phone] ACUTE ILLNESS 04/25/2018 Visit Plan: Saline nasal [...] : J01.90 04/14/2018 Appointment: Nirmala Jaramillo WPtel: [address] [place], [place] [phone] ACUTE ILLNESS 04/14/2018 Patient Education: prednisone- [employer] Coupon [phone] https://www.Taomee/samplemd/resources/getResource/61/0vui11tk-d4l7-48b5-b9 Completed 04/14/2018 Visit Diagnosis Plan: Pain in right leg Discussion: Ch dickson right tib/fib x-ray and start celebrex May need PT ICD-9 : 729.5 ICD-10 : M79.604 01/31/2018 Visit Diagnosis Plan: Sciatica, right side Discussion: Check L/S spine x-ray ICD-9 : 724.3 ICD-10 : M54.31 01/31/2018 Appointment: Nirmala Jaramillo WPtel: [address] [place], [place] [phone] FOLLOW UP 01/31/2018 Care Plan: X-RAY EXAM L-S SPINE 2/3 VWS LOINC : 93448-6 Pending 01/31/2018 Care Plan: X-RAY EXAM OF LOWER LEG LOINC : 26124-6 Pending 01/31/2018 Visit Diagnosis Plan: Pain in [...] ICD-10 : M79.604 01/23/2018 [facility] [facility] 01/23/2018 Visit Diagnosis Plan: Acute [...] : 466.0 ICD-10 : J20.9 11/10/2017 Appointment: SaskiaKevinLisbeth R. [address] [place], [place] [phone] ACUTE ILLNESS 11/10/2017 Patient Education: Patient Medication Summary Completed 11/10/2017 Care Plan: CHEST X-RAY 2VW FRONTAL&LATL LOINC : 31422-2 Pending 11/10/2017 Patient Education: Patient Medication Summary Completed 09/26/2017 Care Plan: A1C HPLC LOINC : 70843-2 Pending 09/26/2017 Visit Diagnosis Plan: Encounter for [facility] adult medical examination without abnormal findings Discussion: fasting blood work ordered t o be obtained at [facility] in the next few days when [...] ICD-10 : Z12.31 09/22/2017 Appointment: Lisbeth Kruger [address] [place], [place] [phone] Annual Well Visit 09/22/2017 Patient Education: Patient [...] : J01.90 07/05/2017 Appointment: Lisbeth Kruger [address] [id number] ACUTE ILLNESS 07/05/2017 Patient Education: Patient Medication [...] ICD-10 : J18.9 03/04/2017 Appointment: Lisbeth Kruger [address] [place], [place] [phone] FOLLOW UP 03/04/2017 Patient Education: Patient Medication [...] : R74.8 02/02/2017 Appointment: Nirmala Jaramillo WPtel: [phone] [facility] FOLLOW UP 02/02/2017 Patient Education: Patient Medication Summary Completed 02/02/2017 Care Plan: Referral Order SNOMED-CT : 30 6240480 Pending 02/02/2017 Patient Education: Patient Medication Summary Completed 01/28/2017 Care Plan: ACUTE HEPATITIS PANEL LOINC : 14275-0 Pending 01/28/2017 Patient Education: Patient Medication Summary Completed 01/26/2017 Care Plan: COMPREHEN METABOLIC PANEL [place] NC : 81524-7 Pending 01/26/2017 Care Plan: A1C HPLC LOINC : 66828-7 Pending 01/26/2017 Appointment: Nirmala Jaramillo WPtel: [address] [place] [address] INJECTION 11/30/2016 Referral: Sav Goff[address] [place] [address] [address] Referral Initiated 11/30/2016 Patient Education: Patient Medication [...] : S90.852A 11/29/2016 Appointment: Nirmala Jaramillo WPtel: [address] [place], [place] [phone] ACUTE ILLNESS 11/29/2016 Patient Education: Patient Medication [...] : Z83.49 11/16/2016 Appointment: Nirmala Jaramillo WPtel: [address] [place], [place] [phone] [place] FOLLOW UP 11/16/2016 Patient Education: Patient Medication Summary Completed 11/16/2016 Care Plan: Referral Order SNOMED-CT : 30 [id number] Pending 11/16/2016 Appointment: Nirmala Jaramillo WPtel: [address] [place], [place] [phone] [place] RESCHEDULED 11/08/2016 Visit Diagnosis Plan: Other hypertrophic disorders of the skin Discussion: Irritated skin tags excised at base and then bases cauterized ICD-9 : 701.9 ICD-10 : L91.8 10/05/2016 Appointment: Nirmala Jaramillo WPtel: [address] [place], [place] [id number] confirmed-sp OFFICE SURGERY 10/05/2016 Patient Education: Patient Medication Summary Completed 10/05/2016 Appointment: Nirmala Jaramillo WPtel: [address] [place], [place] [phone] [place] Per doctor~sl 09/09 canceled due to [...] : R74.8 09/06/2016 Appointment: Nirmala Jaramillo WPtel: [facility] [place] 7/6 lm~sl FOLLOW UP 09/06/2016 Patient Education: Patient Medication Summary Completed 09/06/2016 Patient Education: Patient Medication Summary Completed 08/18/2016 Care Plan: ACUTE HEPATITIS PANEL LOINC : 75396-1 Pending 08/18/2016 Care Plan: TICKBORNE DISEASE PANEL [...] 786.2 ICD-10 : R05 08/16/2016 Appointment: Nirmala Jaramillotel: [address] [place] [address] 08/13 confirmed `sl WORK IN 08/16/2016 Patient Education: Patient Medication Summary Completed 08/16/2016 Care Plan: MAMMOGRAM SCREENING Grandmother Juliane Sahu in late LOINC : 51734-3 Pending 08/16/2016 Patient Education: Patient Medication Summary Completed 07/27/2016 Visit Diagnosis Plan: Acute bronchitis, unspecified Di scussion: Rxs as above Borrow neb machine until home with hers if needed OTC meds reviewed Watch BSs closely Follow up if not improving ICD-9 : 466.0 ICD-10 : J20.9 06/23/2016 Appointment: Ananya Lopez [address] [place] [address] ACUTE ILLNESS 06/23/2016 Patient Education: Patient Medication Summary Completed 06/23/2016 Appointment: Nirmala Jaramillotel: [address] [place], [place] [phone] [place] INJECTION 03/09/2016 Patient Education: Patient Medication Summary Completed 03/09/2016 Appointment: Nirmala Jaramillotel: [address] [place], [place] [phone] [place] INJECTION 02/16/2016 Visit Plan: Decrease Breo to 100/25mcg 1 p BID for another week Flu shot with Prevnar 13 next week if covered Refill metformin 12/18/2015 Appointment: [facility]irm[facility]el[phone] [facility] 12/16 confirmed`sl FOLLOW UP 12/18/2015 Patient Education: [...] Recheck 1week 12/11/2015 Appointment: Nirmala Jaramillo WPtel: [phone] [facility] ACUTE ILLNESS 12/11/2015 Patient Education: Patient Medication Summary Completed 12/11/2015 Visit Plan: Patient sounds and appears i mproved Continue mucinex, vit C, breathing treatments, humidifier, vicks, etc CXR on am and will call with report before the weekend Monitor for any return of concerning symptoms - fevers, chills, worsening cough, etc 12/08/2015 Appointment: Ananya Lopez [address] [place], [place] [phone] 12/04 Lm~sl....confirmed-sp FOLLOW UP 11/28 Patient Education: Patient Medication Summary Completed 12/08/2015 Visit Plan: Finish levaquin ordered by [employer] Add above meds has nebulizer machine she can use Supportive care reviewed Monitor BS closely - glucometer and instructions on use given - reports history of "insulin resistance" Follow up in 1 week for recheck - will plan to get xray after she's off her meds to be sure infection resolved - follow up sooner if not continuing to improve 12/01/2015 Appointment: John Ananya [address] [place], [place] [phone] 11/30 lm ~sl NEW PATIENT 12/01/2015 Patient Education: Patient Medication Summary Completed 12/01/2015 Referral: Dhruv Montalvo WPtel: [phone] [facility] E [id number] Referral Appointment Requested Referral: Chan Chavez WPtel: [address] [facility] [address] [id number] [place] Referral Completed Referral: Dhruv LubinZee WPtel: [address] [facility] [address] [id number] [place] Referral Initiated Instructions Comment . Saline nasal [...] cough, etc . Finish levaquin ordered by [employer] Add above meds has nebulizer machine she [...]
--- OUTSIDE RECORDS SUMMARY | 2019-05-18 13:14 | XMS REPORT | CCD ---
Author Author Veronica Lopez Organization NIRMALA JARAMILLO DO [facility] Address [address] [place] [address] Phone Unavailable Care Team Providers Care Gear Milling Machine Set Up Operator Name Role Phone Nirmala Jaramillo D.O., PP Unavailable CCM Unavailable Summary Purpose Interface Exchange Insurance Providers Payer name Policy type / Coverage type Covered constitution party ID Effective Begin Date Effective End Date [employer] Commercial Insurance [id number] Unknown Family History Family History data not found Social History Social History Element Codes Description Effective Dates Marital status Unknown 12/01/2015 Number of children Unknown 3 12/01/2015 Employment Unknown Currently employed 12/01/[address]: 077776109 Never smoker 12/01/[address]: 955058809 Never drinks alcohol 2015 Allergies, Adverse Reactions, [...] Fill Instructions Rexulti 1 mg tablet RxNorm: 7688714 1 Tablet(s) Oral QD 04/30/2019 Active Victoza 2-Ab 0.6 mg/0.1 mL (18 mg/3 mL) subcutaneous pen injector RxNorm: 051523 Milliliter(s) Subcutaneous 0.6 mg daily for 1 week, then 1.2 mg daily for 1 week, then 1.8 mg daily 04/30/2019 08/28/2019 Active Lexapro 20 mg tablet RxNorm: 057193 TAKE 1 TABLET BY MOUTH EVERY DA Y 04/16/2019 06/14/2019 Active lisinopril 40 mg tablet RxNorm: 254519 TAKE 1 TABLET BY MOUTH E VERY 04/04/2019 08/01/2019 Active Trulicity 0.75 mg/0.5 mL subcutaneous pen injector RxNorm: 1 964195 INJECT 1 DOSE SUB-Q ONCE WEEKLY 03/27/2019 05/21/2019 Active Zithromax Z-Ab 250 mg tablet RxNorm: 214935 Tablet(s) Oral jackson e as directed 03/27/2019 03/27/2019 Inactive Zithromax Z-Ab 250 mg tablet RxNorm: 860364 Tablet(s) Oral jackson e as directed 03/27/2019 03/26/2019 Inactive promethazine 6.25 mg-codeine 10 mg/5 mL syrup RxNorm: 541629 5 Milliliter(s) Oral Q4H as needed 03/26/2019 04/30/2019 Inactive amlodipine 5 mg tablet RxNorm: 106024 TAKE 1 TABLET BY MOUTH EV EZRA02/19/2019 05/19/2019 Active Trulicity 0.75 mg/0.5 mL subcutaneous pen injector RxNorm: 1 574895 INJECT 1 DOSE SUB-Q ONCE WEEKLY 02/19/2019 03/18/2019 Inactive Lexapro 20 mg tablet RxNorm: 266058 1 TABLET(S) PO QD 01/04/201905/2019 Inactive lisinopril 40 mg tablet RxNorm: 104415 1 TABLET(S) PO QD 12/05/2018 0 04/03/2019 Inactive scopolamine 1 mg over 3 days transdermal patch RxNorm: 50336 2 1 Application Transdermal Q72H 11/27/2018 11/26/2018 Inactive scopolamine 1 mg over 3 days transdermal patch RxNorm: 71702 2 1 Application Transdermal Q72H 11/27/2018 11/27/2018 Inactive ondansetron HCl 4 mg tablet RxNorm: 190881 1 Tablet(s) Oral Q4H as needed for nausea 11/27/2018 11/27/2018 Inactive ondansetron HCl 4 mg tablet RxNorm: 396335 1 Tablet(s) Oral Q4H as needed for nausea 11/27/2018 11/26/2018 Inactive amlodipine 5 mg tablet RxNorm: 116309 1 TABLET(S) PO QD 11/20/2018 Inactive Xanax 0.25 mg tablet RxNorm: 531159 1 Tablet(s) PO as needed 2018 No Stop Date Active ProAir HFA 90 mcg/actuation aerosol inhaler RxNorm: 018446 2 Puff(s) INH Q4H as needed 10/31/2018 No Stop Date Active if insurance das s not cover, please switch to ventolin. prednisone 20 mg tablet RxNorm: 737605 1 Tablet(s) PO BID 10/31/2018 11/04/2018 Inactive Zithromax Z-Ab 250 mg tablet RxNorm: 656572 Tablet(s) take as directed PO 10/31/2018 01/22/2019 Inactive Trulicity 0.75 mg/0.5 mL subcutaneous pen injector RxNorm: 1 750511 1 Unit Dose SQ QW 10/31/2018 02/18/2019 Inactive Ozempic 0.25 mg or 0.5 mg (2 mg/1.5 mL) subcutaneous p en injector RxNorm: 3156646 0.5 Milligram(s) SQ QW 10/09/2018 10/30/2018 Inactive Ozempic 0.25 mg or 0.5 mg (2 mg/1.5 mL) subcutaneous p en injector RxNorm: 5931303 0.5 Gram(s) SQ QW 10/05/2018 10/08/2018 Inactive lisinopril 40 mg tablet RxNorm: 530061 1 Tablet(s) PO QD 09/18/2018 1 Inactive metformin 1,000 mg tablet RxNorm: 680245 1 TABLET(S) PO QD 09/07/19 19 03/04/2019 Inactive Trulicity 0.75 mg/0.5 mL subcutaneous pen injector RxNorm: 1 722340 0.75 Milligram(s) SQ QW Replaces Ozemic 08/28/2018 10/30/2018 Inactive replaces Ozempic Ozempic 0.25 mg or 0.5 mg (2 mg/1.5 mL) subcutaneous p en injector RxNorm: 2052989 0.5 Milligram(s) SQ WEEKLY 08/28/2018 10/05/2018 Inactive metformin 1,000 mg tablet RxNorm: 659145 1 Tablet(s) PO QD 08/24/1909/05/2018 Inactive Ozempic 0.25 mg or 0.5 mg (2 mg/1.5 mL) subcutaneous p en injector RxNorm: 1678730 0.5 Milligram(s) SQ WEEKLY 08/03/2018 08/27/2018 Inactive amlodipine 5 mg tablet RxNorm: 280165 1 Tablet(s) PO QD 07/25/2018 Inactive Lexapro 20 mg tablet RxNorm: 092663 1 Tablet(s) PO QD 07/10/201807/2018 Inactive lisinopril 40 mg tablet RxNorm: 966083 1 Tablet(s) PO QD 07/10/2018 0 09/07/2018 Inactive amlodipine 5 mg tablet RxNorm: 016900 1 Tablet(s) PO QD 06/22/2018 Inactive lisinopril 40 mg tablet RxNorm: 156313 1 Tablet(s) PO QD 06/22/2018 0 07/09/2018 Inactive lisinopril 20 mg tablet RxNorm: 727403 1 Tablet(s) PO QD 06/19/2018 0 06/21/2018 Inactive lisinopril 5 mg tablet RxNorm: 316597 1 Tablet(s) PO QD 06/13/2018 Inactive metformin 1,000 mg tablet RxNorm: 126810 Tablet(s) TABLET(S) 1 TABLET(S) PO QD 06/08/2018 08/22/2018 Inactive Tamiflu 75 mg capsule RxNorm: 278596 1 Capsule(s) PO BID 04/26/2018 0 04/30/2018 Inactive Tamiflu 75 mg capsule RxNorm: 837751 1 Capsule(s) PO BID 04/26/2018 0 04/25/2018 Inactive prednisone 10 mg tablet RxNorm: 837850 1 Tablet(s) PO TID 04/25/2018 04/29/2018 Inactive prednisone 20 mg tablet RxNorm: 069684 1 Tablet(s) PO BID 04/14/2018 04/20/2018 Inactive Augmentin 500 mg-125 mg tablet RxNorm: 529375 1 Tablet(s) PO BID 04/20/2018 Inactive metformin 1,000 mg tablet RxNorm: 585488 TABLET(S) 1 TABLET(S) PO Q D 03/09/2018 06/06/2018 Inactive celecoxib 200 mg capsule RxNorm: 110788 1 Capsule(s) PO BID for diana n 01/31/2018 03/01/2018 Inactive metformin 1,000 mg tablet RxNorm: 679471 1 Tablet(s) PO BID 018 No Stop Date Active Medrol (Ab) 4 mg tablets in a dose pack RxNorm: 962552 Tablet(s) PO take as directed 01/23/2018 01/30/2018 Inactive Lexapro 20 mg tablet RxNorm: 402377 Tablet(s) 1 TABLET(S) PO QD 06/21/2018 Inactive Lexapro 20 mg tablet RxNorm: 084601 Tablet(s) 1 TABLET(S) PO QD 07/201701/22/2018 Inactive metformin 1,000 mg tablet RxNorm: 085664 1 Tablet(s) PO BID 018 01/22/2018 Inactive Lexapro 20 mg tablet RxNorm: 475070 Tablet(s) 1 TABLET(S) PO QD 11/02/2017 Inactive metformin 1,000 mg tablet RxNorm: 770443 Tablet(s) 1 TABLET(S) PO Q D 09/22/2017 09/26/2017 Inactive Xanax 0.25 mg tablet RxNorm: 684511 1 Tablet(s) PO as needed 201710/30/2018 Inactive metformin 1,000 mg tablet RxNorm: 982480 Tablet(s) 1 TA BLET(S) PO QD NEEDS UPDATED LABS 09/06/2017 09/20/2017 Inactive metformin 1,000 mg tablet RxNorm: 628649 1 TABLET(S) PO QD NEED S UPDATED LABS 08/24/2017 09/05/2017 Inactive metformin 1,000 mg tablet RxNorm: 238000 1 Tablet(s) PO QD Need s updated labs 08/08/2017 08/22/2017 Inactive Lexapro 20 mg tablet RxNorm: 783005 1 TABLET(S) PO QD 07/17/201708/29 Inactive pseudoephedrine 30 mg tablet RxNorm: 7307684 1-2 Tablet(s) PO Q6H 0 07/05/2017 06/12/2018 Inactive Augmentin 875 mg-125 mg tablet RxNorm: 440891 1 Tablet(s) PO BID 07/14/2017 Inactive metformin 1,000 mg tablet RxNorm: 622640 1 Tablet(s) PO QD Need s updated labs 07/04/2017 08/08/2017 Inactive metformin 1,000 mg tablet RxNorm: 596660 1 Tablet(s) PO QD Need s updated labs 05/30/2017 07/04/2017 Inactive Levaquin 750 mg tablet RxNorm: 327370 1 Tablet(s) PO QD 03/04/2017 Inactive ProAir HFA 90 mcg/actuation aerosol inhaler RxNorm: 006357 2 Puff(s) INH Q4H as needed 03/04/2017 07/04/2017 Inactive if insurance das s not cover, please switch to ventolin. Tamiflu 75 mg capsule RxNorm: 832686 1 Capsule(s) PO QD 03/04/2017 Inactive metformin 1,000 mg tablet RxNorm: 160458 1 Tablet(s) PO QD 02/16/20 17 05/15/2017 Inactive Lexapro 20 mg tablet RxNorm: 104698 1 Tablet(s) PO QD 01/17/201707/2017 Inactive cephalexin 500 mg capsule RxNorm: 423580 1 Capsule(s) PO TID 201612/08/2016 Inactive pantoprazole 40 mg tablet,delayed release RxNorm: 014746 1 Tabl et(s) PO QD 11/16/2016 03/15/2017 Inactive metformin 1,000 mg tablet RxNorm: 406438 TAKE 1 TABLET BY MOUTH EVERY DAY 10/10/2016 02/15/2017 Inactive Flonase Allergy Relief 50 mcg/actuation nasal spray,suspensi on RxNorm: 2490965 2 [place] NASAL QHS 09/06/2016 11/15/2016 Inactive Singulair 10 mg tablet RxNorm: 446668 1 Tablet(s) PO QHS 09/06/2016 0 11/15/2016 Inactive Singulair 10 mg tablet RxNorm: 979453 1 Tablet(s) PO QHS 08/12/2016 0 09/05/2016 Inactive ProAir HFA 90 mcg/actuation aerosol inhaler RxNorm: 991919 1 Puff(s) INH Q4H as needed 08/12/2016 08/15/2016 Inactive Medrol (Ab) 4 mg tablets in a dose pack RxNorm: 904536 Tablet(s) PO As Directed 07/29/2016 08/15/2016 Inactive Lexapro 20 mg tablet RxNorm: 806761 1 Tablet(s) PO QD 07/06/201612/30 Inactive doxycycline hyclate 100 mg capsule RxNorm: 5886700 1 Capsule(s) PO BID 06/24/2016 06/23/2016 Inactive doxycycline hyclate 100 mg capsule RxNorm: 0401278 1 Capsule(s) PO BID 06/24/2016 07/03/2016 Inactive ProAir HFA 90 mcg/actuation aerosol inhaler RxNorm: 753676 1 Puff(s) INH Q4H as needed 06/23/2016 08/11/2016 Inactive prednisone 20 mg tablet RxNorm: 447175 1 Tablet(s) PO BID 06/23/2016 06/27/2016 Inactive metformin 1,000 mg tablet RxNorm: 510967 1 Tablet(s) PO QD 12/18/19 16 06/14/2016 Inactive Lexapro 20 mg tablet RxNorm: 540486 1 Tablet(s) PO QD 12/18/201510/2016 Inactive prednisone 20 mg tablet RxNorm: 850631 Take 3 tabs PO Q D x 3 days, then 2 tabs PO QD x 3 days, then 1 tab PO QD x 3 days 12/01/2015 12/10/2015 Inacti ve albuterol sulfate 2.5 mg/3 mL (0.083 %) solution for n ebulization RxNorm: 678162 3 Milliliter(s) INH Q4H as needed 12/01/2015 07/04/2017 Inactiv e Singulair 10 mg tablet RxNorm: 157332 1 Tablet(s) PO QHS No Start D ate 08/11/2016 Inactive Breo Ellipta 100 mcg-25 mcg/dose powder for inhalation RxNor m: 7831710 1 Puff(s) INH QD No Start Date 02/01/2017 Inactive Zyrtec 10 mg tablet RxNorm: 9744191 1 Tablet(s) PO QAM No Start Date 11/15/2016 Inactive Xanax 0.25 mg tablet RxNorm: 332028 1 Tablet(s) PO as needed No Sta rt Date 09/21/2017 Inactive metformin 1,000 mg tablet RxNorm: 343713 1 Tablet(s) PO QD No Start Date 12/17/2015 Inactive Singulair 10 mg tablet RxNorm: 849465 1 Tablet(s) PO QHS No Start D ate 11/15/2016 Inactive metformin 1,000 mg tablet RxNorm: 214303 1 Tablet(s) PO QD No Start Date 02/14/2017 Inactive metformin 1,000 mg tablet RxNorm: 887114 1 Tablet(s) PO BID No Star t Date 09/26/2017 Inactive Trulicity 0.75 mg/0.5 mL subcutaneous pen injector RxNorm: 1 795548 0.75 Milligram(s) SQ QW No Start Date 08/27/2018 Inactive Medrol (Ab) 4 mg tablets in a dose pack RxNorm: 972217 Tablet(s) PO As Directed No Start Date 07/28/2016 Inactive Lexapro 20 mg tablet RxNorm: 908717 1 Tablet(s) PO QD No Start Date 1 Inactive Lexapro 20 mg tablet RxNorm: 393592 1 Tablet(s) PO QD No Start Date 0 07/09/2018 Inactive Medication Administered No Medication Administered data Immunizations Vaccine Codes Date Status Tetanus, Diptheria, Pertussis CVX: 115 11/30/2016 Co mplete Pneumococcal CVX: 133 03/09/2016 Complete Results Observation Observation Code Item Item Code Result Date S ervice Location VIRAL HEPATITIS PROFILE #2 96614 Hep A IgM Non-Reactive 06/20/2018 Unknown VIRAL HEPATITIS PROFILE #2 25175 Hep B Core IgM Non-Reac tive 06/20/2018 Unknown VIRAL HEPATITIS PROFILE #2 61221 Hepatitis C Ab Non-Reac tive 06/20/2018 Unknown VIRAL HEPATITIS PROFILE #2 68184 Hep Bs Ag Non-Reactive 06/20/2018 Unknown MEAN GLUC 0945423 Calc Mean Gluc 194 mg/dL 06/19/2018 Unkn own COMPREHENSIVE METABOLIC 35501 AST 94 U/L 2018 Unknown COMPREHENSIVE METABOLIC 91892 ALT 160 U/L 2018 Unknown COMPREHENSIVE METABOLIC 81417 BUN 9 mg/dL 2018 Unknown COMPREHENSIVE METABOLIC 24625 ALBUMIN 4.6 g/dL 2018 Unknown COMPREHENSIVE METABOLIC 44715 CHLORIDE 101 mmol/L 06/19 Unknown COMPREHENSIVE METABOLIC 10808 Bili Total 0.9 mg/dL 06/19 Unknown COMPREHENSIVE METABOLIC 69718 ALK PHOS 64 U/L 2018 Unknown COMPREHENSIVE METABOLIC 03826 SODIUM 136 mmol/L 06/19 Unknown COMPREHENSIVE METABOLIC 65179 CREATININE 0.58 mg/dL 05/30 Unknown COMPREHENSIVE METABOLIC 18831 CALCIUM 10.3 mg/dL 06/19 Unknown COMPREHENSIVE METABOLIC 46045 POTASSIUM 3.7 mmol/L 06/19 Unknown COMPREHENSIVE METABOLIC 70293 Total Protein 7.1 g/dL Unknown COMPREHENSIVE METABOLIC 31329 Glucose 187 mg/dL 2018 Unknown COMPREHENSIVE METABOLIC 38076 Bicarbonate 26 mmol/L 05/30 Unknown COMPREHENSIVE METABOLIC 56175 AGAP 9 mmol/L 2018 Unknown GLYCOSYLATED HEMOGLOBIN TEST 82116 Hgb A1c 82576-7 8.4 % 0 06/19/2018 Unknown COMPLETE BLOOD COUNT 9037292 WBC 6.2 10e9/L 06/20/19 19 Unknown COMPLETE BLOOD COUNT 7039894 RBC 4.70 10e12/L 2018 Unknown COMPLETE BLOOD COUNT 2424053 HEMOGLOBIN 13.4 g/dL 06/20/19 19 Unknown COMPLETE BLOOD COUNT 4098294 HEMATOCRIT 39.9 % 06/20/19 19 Unknown COMPLETE BLOOD COUNT 9562526 MCV 84.9 fL 9 Unknown COMPLETE BLOOD COUNT 7818069 MCH 28.5 pg 9 Unknown COMPLETE BLOOD COUNT 5745927 MCHC 33.6 g/dL 9 Unknown COMPLETE BLOOD COUNT 7360553 PLATELET COUNT 252 10e9/L Unknown COMPLETE BLOOD COUNT 1950292 Mean Plt Volume 12.2 fL Unknown COMPLETE BLOOD COUNT 7371968 Neut Auto 53.9 % 9 Unknown COMPLETE BLOOD COUNT 6766625 Lymph Auto 35.2 % 06/20/19 19 Unknown COMPLETE BLOOD COUNT 4597753 Terrell Auto 7.1 % 9 Unknown COMPLETE BLOOD COUNT 3459192 RDW 14.1 % 9 Unknown COMPLETE BLOOD COUNT 3671678 Eos Auto 3.2 % 9 Unknown COMPLETE BLOOD COUNT 6180574 Baso Auto 0.6 % 9 Unknown COMPLETE BLOOD COUNT 8571781 Neutrophil Abs 3.34 10e9/L Unknown COMPLETE BLOOD COUNT 1630712 Lymphocyte Abs 2.18 10e9/L Unknown COMPLETE BLOOD COUNT 7552265 Monocyte Abs 0.44 10e9/L 05/30 Unknown COMPLETE BLOOD COUNT 0987685 Eosinophil Abs 0.20 10e9/L Unknown COMPLETE BLOOD COUNT 4124046 RDW-SD 42.7 fL 9 Unknown COMPLETE BLOOD COUNT 3056580 Basophil Abs 0.04 10e9/L 05/30 Unknown THYROID STIMULATING HORMONE 13070 TSH 1.976 uIU/mL 06/19/2018 Unknown GFR CALC 4713035 GFR Non Afr Amr >60 mL/min 06/19/2018 Un known GFR CALC 6890058 GFR Afr Amr >60 mL/min 06/19/2018 Unknow n SURESWAB(R), BACTERIAL VAGINOSIS/VAGINITIS 54194 BV CATEGORY: TNP 09/27/2017 [facility] [address] [place] [address] SURESWAB(R), BACTERIAL VAGINOSIS/VAGINITIS 84300 LACTOBACILLUS S PECIES DNR 09/27/2017 [facility] [address] [place] [address] SURESWAB(R), BACTERIAL VAGINOSIS/VAGINITIS 36700 ATOPOBIUM VAGIN AE DNR 09/27/2017 [facility] [address] [place] [address] SURESWAB(R), BACTERIAL VAGINOSIS/VAGINITIS 05210 MEGASPHAERA SPE CIES DNR 09/27/2017 [facility] [address] [place] [address] SURESWAB(R), BACTERIAL VAGINOSIS/VAGINITIS 67763 GARDNERELLA VAG INALIS DNR 09/27/2017 [facility] [address] [place] [address] SURESWAB(R), BACTERIAL VAGINOSIS/VAGINITIS 29121 SURESWAB(R) TRICHOMONAS VAGINALIS RNA, QL TMA TNP 09/27/2017 [facility] [address] [place] [address] SURESWAB(R), BACTERIAL VAGINOSIS/VAGINITIS 85085 C. ALBICANS, DN A TNP 09/27/2017 [facility] [address] [place] [address] SURESWAB(R), BACTERIAL VAGINOSIS/VAGINITIS 50948 C. GLABRATA, DN A DNR 09/27/2017 [facility] [place] [address] SURESWAB(R), BACTERIAL VAGINOSIS/VAGINITIS 30440 C. TROPICALIS, DNA DNR 09/27/2017 [facility] [place] [address] SURESWAB(R), BACTERIAL VAGINOSIS/VAGINITIS 59078 C. PARAPSILOSIS , DNA DNR 09/27/2017 [facility] [place] [address] THINPREP TIS AND HPV mRNA E6/E7 63852 REPORT STATUS: DNR 09/27/2017 [facility] [address] [place] [address] THINPREP TIS AND HPV mRNA E6/E7 36132 CLINICAL INFORMATION: 09/27/2017 [facility] [place] [address] THINPREP TIS AND HPV mRNA E6/E7 12991 LMP: 201709/27/2017 [facility] [place] [place] [address] THINPREP TIS AND HPV mRNA E6/E7 59094 PREV. PAP: 09/27/2017 [facility] [place] [address] THINPREP TIS AND HPV mRNA E6/E7 00006 PREV. BX: 09/27/2017 [facility] [place] [address] THINPREP TIS AND HPV mRNA E6/E7 25753 SOURCE: Cerv ix 09/27/2017 [place] [address] [place] [address] THINPREP TIS AND HPV mRNA E6/E7 47845 STATEMENT OF ADEQUACY: 09/27/[address] [place] [address] [address] [address] THINPREP TIS AND HPV mRNA E6/E7 59165 GENERAL CATEGORIZATION: DNR 09/27/[address] [place] [address] [address] THINPREP TIS AND HPV mRNA E6/E7 39879 INTERPRETATION/RESULT: 09/27/[address] [place] [address] [address] [address] THINPREP TIS AND HPV mRNA E6/E7 56998 INFECTION: DNR 09/27/2017 [facility] [place] [address] THINPREP TIS AND HPV mRNA E6/E7 96307 COMMENT: 09/27/2017 [facility] [place] [address] THINPREP TIS AND HPV mRNA E6/E7 81773 PANTRY STEWARD/STEWARDESS: 09/27/2017 [facility] [place] [address] THINPREP TIS AND HPV mRNA E6/E7 27424 REVIEW PANTRY STEWARD/STEWARDESS: LORETTA 09/27/2017 [facility] [place] [address] THINPREP TIS AND HPV mRNA E6/E7 24102 PATHOLOGIST: KHLOE Srivastava 09/27/2017 [facility] [place] [address] THINPREP TIS AND HPV mRNA E6/E7 12103 COMMENT 09/27/2017 [facility] [place] [address] THINPREP TIS AND HPV mRNA E6/E7 29621 HPV mRNA E6/E7 Not Detected 09/27/2017 [facility] [place] [address] CULTURE, GENITAL 20989 CULTURE, GENITAL SEE NOTE [facility] [place] [address] CULTURE, THROAT 63879 CULTURE, THROAT SEE NOTE 07/30 [facility] [address] [place] [address] Procedures Procedure Codes Date INFLUENZA ASSAY W/OPTIC CPT-4: 68872 03/26/2019 DEXAMETHASONE SODIUM PHOS CPT-4: J1100 03/26/2019 THER/PROPH/DIAG INJ SC/IM CPT-4: 89497 03/26/2019 TRIAMCINOLONE ACET INJ NOS CPT-4: J3301 03/26/2019 DRAIN/INJECT JOINT/BURSA CPT-4: 05636 01/23/2019 ROUTINE VENIPUNCTURE CPT-4: 12031 06/19/2018 COMPLETE CBC W/AUTO DIFF WBC CPT-4: 60330 06/19/2018 COMPREHEN METABOLIC PANEL CPT-4: 03009 06/19/2018 A1C HPLC CPT-4: 35551 06/19/2018 ASSAY THYROID STIM HORMONE CPT-4: 99713 06/19/2018 URINALYSIS NONAUTO W/O SCOPE CPT-4: 97303 06/19/2018 ACUTE HEPATITIS PANEL CPT-4: 89695 06/19/2018 INFLUENZA ASSAY W/OPTIC CPT-4: 18630 04/26/2018 STREP A ASSAY W/OPTIC CPT-4: 29977 04/25/2018 THROAT CULTURE CPT-4: 43049 04/25/2018 CEFTRIAXONE SODIUM INJECTION CPT-4: J0696 11/10/2017 DEXAMETHASONE SODIUM PHOS CPT-4: J1100 11/10/2017 THER/PROPH/DIAG INJ SC/IM CPT-4: 14966 11/10/2017 TRIAMCINOLONE ACET INJ NOS CPT-4: J3301 11/10/2017 OCCULT BLOOD FECES CPT-4: 13488 09/22/2017 SURESWAB(R), BACTERIAL VAGINOSIS/VAGINITIS CPT-4: 73775 09/22/2017 CULTURE, GENITAL CPT-4: 81963 09/22/2017 TDAP VACCINE 7 YRS/> IM CPT-4: 40081 11/30/2016 IMMUNIZATION ADMIN CPT-4: 40999 11/30/2016 REMOVAL OF FOOT FOREIGN BODY CPT-4: 69002 11/29/2016 REMOVAL OF SKIN TAGS <W/15 CPT-4: 62475 10/05/2016 CULTURE, THROAT CPT-4: 56150 08/16/2016 PNEUMOCOCCAL VACC 13 AYSHA IM CPT-4: 32527 03/09/2016 IMMUNIZATION ADMIN CPT-4: 40870 03/09/2016 THER/PROPH/DIAG INJ SC/IM CPT-4: 01264 12/11/2015 TRIAMCINOLONE ACET INJ NOS CPT-4: J3301 [...] 1: 126/84 Code: 8480-6 BMI: 39.9 Code: 68814-0 Heart Rate 1: 80 bpm Height: 5'2" [...] 1: 126/82 Code: 8480-6 BMI: 40.6 Code: 32494-5 Heart Rate 1: 72 bpm Height: 5'2" [...] 1: 124/68 Code: 8480-6 BMI: 41.7 Code: 32000-2 Heart Rate 1: 66 bpm Height: 5'2" Respiratory Rate: 20 bpm SpO2: 98% Tempera ture: 36.2 (C) / 97.2 (F) Weight: 228 lbs 09/22/2017 Blood Pressure 1: 142/80 Code: 8480-6 BMI: 41.3 Code: 03959-6 Heart Rate 1: 60 bpm Height: 5'2" Respiratory Rate: 20 bpm SpO2: 98% Tempera ture: 36.3 (C) / 97.3 (F) Weight: 226 lbs 07/05/2017 Blood Pressure 1: 129/82 Code: 8480-6 BMI: 42.3 Code: 30253-3 Heart Rate 1: 60 bpm Height: 5'2" SpO2: 97% Temperature: 36.4 (C) / 97.6 (F) Weight: 231 lbs 03/04/2017 Blood Pressure 1: 142/80 Code: 8480-6 BMI: 42.4 Code: 50995-5 Heart Rate 1: 74 bpm Height: 5'2" Respiratory Rate: 24 bpm SpO2: 97% Tempera ture: 36.4 (C) / 97.6 (F) Weight: 232 lbs 02/02/2017 Blood Pressure 1: 146/82 Code: 8480-6 BMI: 42.4 Code: 96102-5 Heart Rate 1: 84 bpm Height: 5'2" Respiratory Rate: 20 bpm SpO2: 98% Tempera ture: 36.6 (C) / 97.9 (F) Weight: 232 lbs 11/29/2016 Blood Pressure 1: 126/78 Code: 8480-6 Heart Rate 1: 76 bpm Height: 5'2" Respiratory Rate: 20 bpm SpO2: 96% Temperature: 36 .9 (C) / 98.4 (F) 11/16/2016 Blood Pressure 1: 136/94 Code: 8480-6 BMI: 42.6 Code: 27458-5 Heart Rate 1: 68 bpm Height: 5'2" Respiratory Rate: 20 bpm SpO2: 96% Tempera ture: 36.9 (C) / 98.4 (F) Weight: 233 lbs 10/05/2016 Blood Pressure 1: 112/78 Code: 8480-6 BMI: 41.5 Code: 04247-9 Heart Rate 1: 80 bpm Height: 5'2" Respiratory Rate: 20 bpm SpO2: 97% Tempera ture: 36.8 (C) / 98.2 (F) Weight: 227 lbs 09/06/2016 Blood Pressure 1: 126/82 Code: 8480-6 BMI: 42.4 Code: 62658-3 Heart Rate 1: 64 bpm Height: 5'2" Respiratory Rate: 20 bpm SpO2: 98% Tempera ture: 37.0 (C) / 98.6 (F) Weight: 232 lbs 08/16/2016 Blood Pressure 1: 136/82 Code: 8480-6 BMI: 42.1 Code: 05898-4 Heart Rate 1: 72 bpm Height: 5'2" [...] 1: 144/80 Code: 8480-6 BMI: 40.4 Code: 80693-6 Heart Rate 1: 92 bpm Height: 5'2" Respiratory Rate: 20 bpm SpO2: 95% Tempera ture: 36.8 (C) / 98.2 (F) Weight: 221 lbs 12/08/2015 Blood Pressure 1: 124/78 Code: 8480-6 Heart Rate 1: 108 bpm Height: 5'2" Respiratory Rate: 22 bpm SpO2: 95% Temperature: 36.2 (C) / 97.2 (F) Weight: 12/01/2015 Blood Pressure 1: 124/78 Code: 8480-6 BMI: 40.4 Code: 56008-6 Heart Rate 1: 92 bpm Height: 5'2" [...] 11/10/2017 patient was seen at [facility] and given Levaquin and 5 day [...] care Encounters Encounter Performer Location Codes Date (73342) OFFICE/OUTPATIENT VISIT EST Diagnosis: Type 2 diabetes mellitus with hyperglycemia[ICD10: E11.65] Diagnosis: Major depressive disorder, single episode, unspecified[ICD10: F32.9] Diagnosis: Anxiety and depression[ICD10: F41.9] Lisbeth ORNELAS BRADEN [employer] CPT-4: 02577 04/30/2019 ([id number]) OFFICE/OUTPATIENT VISIT EST Diagnosis: Upper respiratory infection[ICD10: J06.9] Diagnosis: Viral syndrome[ICD10: B34.9] Lisbeth Smithdi NIRMALA [employer] CPT-4: 53934 03/26/2019 ([id number]) OFFICE/OUTPATIENT VISIT EST Diagnosis: Acute upper respiratory infection, unspecified[ICD10: J06.9] Diagnosis: Generalized anxiety disorder[ICD10: F41.1] Diagnosis: Type 2 diabetes mellitus with hyperglycemia[ICD10: E11.65] Diagnosis: Encounter for therapeutic drug level monitoring[ICD10: Z51.81] Lisbeth Smithdi NIRMALA [employer] CPT-4: 71006 10/31/2018 ([id number]) OFFICE/OUTPATIENT VISIT EST Diagnosis: Type 2 diabetes mellitus with hyperglycemia[ICD10: E11.65] Diagnosis: Essential (primary) hypertension[ICD10: I10] Nirmala JARAMILLO DO [facility] CPT-4: 60276 08/08/2018 ([id number]) OFFICE/OUTPATIENT VISIT EST Diagnosis: Essential (primary) hypertension[ICD10: I10] Diagnosis: Type 2 diabetes mellitus with hyperglycemia[ICD10: E11.65] Diagnosis: Other fatigue[ICD10: R53.83] Nirmala JARAMILLO [employer] [facility] CPT-4: 39123 07/06/2018 ([id number]) OFFICE/OUTPATIENT VISIT EST Diagnosis: Dizziness and giddiness[ICD10: R42] Diagnosis: Elevated blood-pressure reading, without diagnosis of hypertension[ICD10: R03.0] Shell JARAMILLO DO [facility] CPT- 4: 05180 06/19/2018 ([id number]) OFFICE/OUTPATIENT VISIT EST Diagnosis: Essential (primary) hypertension[ICD10: I10] Diagnosis: Dizziness and giddiness[ICD10: R42] Shell JARAMILLO [employer] [facility] CPT-4: 80035 06/13/2018 ([id number]) NURSE/OUTPATIENT VISIT EST Diagnosis: Influenza due to identified novel influenza A virus with other manifestations[ICD10: J09.X9] Nirmala JARAMILLO [employer] [facility] CPT-4: 20845 04/26/2018 OFFICE/OUTPATIENT VISIT EST Diagnosis: Pain in throat[ICD10: R07.0] Diagnosis: Acute pharyngitis, unspecified[ICD10: J02.9] Shell JARAMILLO DO [facility] CPT-4: 22471 04/25/2018 ([id number]) OFFICE/OUTPATIENT VISIT EST Diagnosis: Acute sinusitis, unspecified[ICD10: J01.90] Diagnosis: Paresthesia of skin[ICD10: R20.2] Nirmala JARAMILLO [employer] [facility] CPT-4: 32816 04/14/2018 ([id number]) OFFICE/OUTPATIENT VISIT EST Diagnosis: Pain in right leg[ICD10: M79.604] Diagnosis: Sciatica, right side[ICD10: M54.31] Nirmala JARAMILLO DO [employer] CPT-4: 25746 01/31/2018 ([id number]) OFFICE/OUTPATIENT VISIT EST Diagnosis: Pain in right leg[ICD10: M79.604] Lisbeth JARAMILLO DO [employer] CPT-4: 19864 01/23/2018 ([id number]) OFFICE/OUTPATIENT VISIT EST Diagnosis: Acute bronchitis, unspecified[ICD10: J20.9] Lisbeth JARAMILLO DO [employer] CPT-4: 64643 11/10/2017 ([id number]) PREV VISIT EST AGE 40-64 Diagnosis: Encounter [...] Diagnosis: Nonalcoholic steatohepatitis (MOORE)[ICD10: K75.81] Lisbeth JARAMILLO [employer] CPT-4: 75169 09/22/2017 ([id number]) OFFICE/OUTPATIENT VISIT EST Diagnosis: Acute sinusitis, unspecified[ICD10: J01.90] Lisbeth JARAMILLO [employer] CPT-4: 56222 07/05/2017 OFFICE/OUTPATIENT VISIT EST Diagnosis: Pneumonia, unspecified organism[ICD10: J18.9] Lisbeth JARAMILLO DO [employer] CPT-4: 53513 03/04/2017 ([id number]) OFFICE/OUTPATIENT VISIT EST Diagnosis: Polycystic ovarian syndrome[ICD10: E28.2] Diagnosis: Abnormal levels of other serum enzymes[ICD10: R74.8] Diagnosis: Nonalcoholic steatohepatitis (MOORE)[ICD10: K75.81] Diagnosis: Impaired glucose tolerance (oral)[ICD10: R73.02] Nirmala JARAMILLO DO [facility] CPT-4: 92635 02/02/2017 ([id number]) OFFICE/OUTPATIENT VISIT EST Diagnosis: VACCINE FOR TDAP[ICD10: Z23] Nirmala JARAMILLO DO [facility] CPT-4: 85301 11/30/2016 ([id number]) OFFICE/OUTPATIENT VISIT EST Diagnosis: Cough[ICD10: R05] Diagnosis: Abnormal levels of other serum enzymes[ICD10: R74.8] Diagnosis: Family history of other endocrine, nutritional and metabolic diseases[ICD10: Z83.49] Nirmala JARAMILLO DO [facility] CPT-4: 53499 11/16/2016 ([id number]) OFFICE/OUTPATIENT VISIT EST Diagnosis: Cough[ICD10: R05] Diagnosis: Other seasonal allergic rhinitis[ICD10: J30.2] Diagnosis: Abnormal levels of other serum enzymes[ICD10: R74.8] Nirmala JARAMILLO DO [facility] CPT-4: 22279 09/06/2016 ([id number]) OFFICE/OUTPATIENT VISIT EST Diagnosis: Cough[ICD10: R05] Diagnosis: Polycystic ovarian syndrome[ICD10: E28.2] Nirmala JARAMILLO [employer] [facility] CPT-4: 71319 08/16/2016 ([id number]) OFFICE/OUTPATIENT VISIT EST Diagnosis: Acute bronchitis, unspecified[ICD10: J20.9] Diagnosis: Acute upper respiratory infection, unspecified[ICD10: J06.9] Ananya Lopez NIRMALA JARAMILLO [employer] [facility] CPT-4: 10441 06/23/2016 ([id number]) OFFICE/OUTPATIENT VISIT EST Diagnosis: PNEUMOCOCCAL VACCINE[ICD10: Z23] Nirmala JARAMILLO DO [facility] CPT-4: 08661 03/09/2016 ([id number]) OFFICE/OUTPATIENT VISIT EST Diagnosis: Pneumonia, unspecified organism[ICD10: J18.9] Diagnosis: Polycystic ovarian syndrome[ICD10: E28.2] Diagnosis: Generalized anxiety disorder[ICD10: F41.1] Nirmala JARAMILLO [employer] CPT-4: 72757 12/18/2015 ([id number]) OFFICE/OUTPATIENT VISIT EST Diagnosis: Cough[ICD10: R05] Diagnosis: Acute bronchospasm[ICD10: J98.01] Nirmala JARAMILLO [employer] CPT-4: 12419 12/11/2015 ([id number]) OFFICE/OUTPATIENT VISIT EST Diagnosis: Pneumonia, unspecified organism[ICD10: J18.9] Ananya JARAMILLO [employer] CPT-4: 81973 12/08/2015 OFFICE/OUTPATIENT VISIT NEW Diagnosis: Pneumonia, unspecified organism[ICD10: J18.9] Ananya JARAMILLO DO [employer] CPT-4: 35527 12/01/2015 Plan of Care Planned Activity Notes [...] F41.9 04/30/2019 Patient Education: Rexulti- [employer] Coupon [id number] https://www.[employer]/samplemd/resources/getResource/61/9w30kj02-14y8-2as6-93 Completed 04/30/2019 Patient Education: Victoza 2-Ab- Optimize[employer] Coupon 10 [id number] https://www.[employer]/samplemd/resources/getResource/61/bzd28nfl-0fdn-58s7-z0 Completed 04/30/2019 Visit Diagnosis Plan: Upper respiratory infection Disc ussion: influenza neg. kenalog/dexa 40/4 given in office due to severity of symptoms and patient's hx of pneumonia. instructed to call office tomorrow with worsening symptoms, otherwise push fluids and cough syrup prn. ICD-9 : 465.9 ICD-10 : J06.9 03/26/2019 Appointment: Lisbeth Kruger [address] [place], [place] [address]a [address] ACUTE ILLNESS 03/26/2019 Visit Diagnosis Plan: Tibial collateral bursitis of ri ght knee Discussion: Bursa injection as above PELON wrap/rest Notify in 1-2 weeks how knee is doing ICD-9 : 726.62 ICD-10 : M76.41 01/23/2019 Appointment: Nirmala Jaramillo WPtel: [phone] ACUTE ILLNESS 01/23/2019 Care Plan: Referral Order SNOMED-CT : 30 [id number] Pending 01/23/2019 Visit Diagnosis Plan: Type 2 [...] ICD-10 : F41.1 10/31/2018 Appointment: Lisbeth Kruger [address] [place], [place] [address] [address] ACUTE ILLNESS 10/31/2018 Patient Education: Trulicity- OptimizeRX Coupon [id number] https://www.[employer]/resources/getResource/61/q500k2j2-w974-5i42-hj Completed 10/31/2018 Patient Education: Xanax- Opt[employer] Coupon [id number] https://www.[employer]/resources/getResource/61/aw62702n-8246-18k9-yf b2-775h584m0437.pdf Completed 10/31/2018 Patient Education: prednisone- OptimizeRX Coupon [id number] https://www.[employer]/resources/getResource/61/792nd238-1731-93y1-99 Completed 10/31/2018 Patient Education: ProAir HFA- OptimizeRX Coupon [phone] https://www.[employer]/resources/getResource/61/7db09438-13p9-6215-66 Completed 10/31/2018 Visit Diagnosis Plan: Essential (primary) hypertension Discussion: Stable ICD-9 : 401.9 ICD-10 : I10 08/08/2018 Visit Diagnosis Plan: Type 2 diabetes mellitus with hy perglycemia Discussion: Lab discussed Accuchecks daily Continue current meds Check CMP and HbA1C end of September then fwup ICD-9 : 250.02 ICD-10 : E11.65 08/08/2018 Appointment: [facility]irm[facility]illo [phone] [facility] [facility] 08/08/2018 Visit Diagnosis [...] : R53.83 07/06/2018 Appointment: Nirmala Jaramillo WPtel: [address] [place] [address] FOLLOW UP 07/06/2018 Appointment: Nirmala Jaramillo WPtel: [address] [place] [address] [place] Consult 06/22/2018 Patient Education: lisinopril- OptimizeRX Coupon [phone] https://www.[employer]/samplemd/resources/getResource/61/506n80k8-acs8-2395-jv Completed 06/22/2018 Visit Diagnosis Plan: Essential (primary) hypertension Discussion: Increased lisinopril from 5 QD to 20 mg QD. Labs today- CBC, CMP, TSH, A1C. UA today- trace protein. hematuria (patient on period). 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 ICD-9 : 780.4 ICD-10 : R42 06/19/2018 Appointment: [facility] [employer] [address] FOLLOW UP 06/19/2018 Visit Diagnosis Plan: [...] ICD-10 : R42 06/13/2018 Appointment: [facility] [employer] [address] ACUTE ILLNESS 06/13/2018 Appointment: Nirmala Jaramillo WPtel: [address] [place] [address] FLU SWAB 04/26/2018 Visit Diagnosis Plan: Pain in throat Discussion: Rapid Strep A- negative Throat culture- pending. Will call patient with results. Prednisone 10 mg TID x 5 days. Supportive care- fluids, tylenol for pain, humidified air. ICD-9 : 784.1 ICD-10 : R07.0 04/25/2018 Appointment: [facility] [address] ACUTE ILLNESS 04/25/2018 Visit Plan: Saline [...] : J01.90 04/14/2018 Appointment: Nirmala Jaramillo WPtel: [address] [place] [address] ACUTE ILLNESS 04/14/2018 Patient Education: prednisone- OptimizeRX Coupon [phone] https://www.[employer]/samplemd/resources/getResource/61/7aem76pi-a0g2-22m1-l0 Completed 04/14/2018 Visit Diagnosis Plan: Pain in right leg Discussion: Ch dickson right tib/fib x-ray and start celebrex May need PT ICD-9 : 729.5 ICD-10 : M79.604 01/31/2018 Visit Diagnosis Plan: Sciatica, right side Discussion: Check L/S spine x-ray ICD-9 : 724.3 ICD-10 : M54.31 01/31/2018 Appointment: Nirmala Jaramillo WPtel: [facility] [address] FOLLOW UP 01/31/2018 Care Plan: X-RAY EXAM L-S SPINE 2/3 VWS LOINC : 20199-8 Pending 01/31/2018 Care Plan: X-RAY EXAM OF LOWER LEG LOINC : 86934-4 Pending 01/31/2018 Visit Diagnosis Plan: Pain in [...] ICD-10 : M79.604 01/23/2018 Appointment: Lisbeth Kruger [address] [place] [address] ACUTE ILLNESS 01/23/2018 Visit Diagnosis Plan: Acute [...] ICD-10 : J20.9 11/10/2017 Appointment: Lisbeth Kruger [address] [place] [address] ACUTE ILLNESS 11/10/2017 Patient Education: Patient Medication Summary Completed 11/10/2017 Care Plan: CHEST X-RAY 2VW FRONTAL&LATL LOINC : 11612-0 Pending 11/10/2017 Patient Education: Patient Medication Summary Completed 09/26/2017 Care Plan: A1C HPLC LOINC : 53373-0 Pending 09/26/2017 Visit Diagnosis Plan: Encounter for scre ening mammogram for malignant neoplasm of breast Discussion: mammogram ordered to be comp leted at via [facility]. breast exam performed in office. ICD-9 : V76.11 ICD-10 : Z12.31 09/22/2017 Visit Diagnosis Plan: Impaired glucose tolerance (oral ) Discussion: metformin daily. will update fasting labs and patient to have completed this week or first part of next. ICD-9 : 790.22 ICD-10 : R73.02 09/22/2017 Visit Diagnosis Plan: Encounter for [facility] adult medical examination without abnormal findings Discussion: fasting blood work ordered t o be obtained at [facility] in the next few days [...] F41.1 09/22/2017 Visit Diagnosis Plan: Encounter for gyne cological examination (general) (routine) with abnormal findings Discussion: thick cervical drainage note d during exam. culture to be completed. ICD-9 : V72.31 ICD-10 : Z01.411 09/22/2017 Appointment: Lisbeth Kruger [employer] [address] Annual Well Visit 09/22/2017 Patient Education: Patient [...] : J01.90 07/05/2017 Appointment: Lisbeth Kruger [place] [phone] ACUTE ILLNESS 07/05/2017 Patient Education: Patient Medication [...] ICD-10 : J18.9 03/04/2017 Appointment: Lisbeth Kruger [employer] [id number] FOLLOW UP 03/04/2017 Patient Education: Patient Medication Summary Completed 03/04/2017 Visit Diagnosis Plan: Abnormal levels of other serum e nzymes Discussion: Awaiting Hepatitis profile results See GI for evaluation to assess for MOORE/fibrosis and if needs liver biopsy ICD-9 : 790.5 ICD-10 : R74.8 02/02/2017 Visit Diagnosis Plan: Impaired glucose tolerance (oral ) Discussion: Continue metformin Lifestyle change--diet/exercise/weight loss Follow Up: 3 months ICD-9 : 790.22 ICD-10 : R73.02 02/02/2017 Appointment: Nirmala Jaramillo WPtel: [address] [place], [place] [phone] FOLLOW UP 02/02/2017 Patient Education: Patient Medication Summary Completed 02/02/2017 Care Plan: Referral Order SNOMED-CT : 30 [id number] Pending 02/02/2017 Patient Education: Patient Medication Summary Completed 01/28/2017 Care Plan: ACUTE HEPATITIS PANEL LOINC : 98589-0 Pending 01/28/2017 Patient Education: Patient Medication Summary Completed 01/26/2017 Care Plan: COMPREHEN METABOLIC PANEL [place] NC : 62267-2 Pending 01/26/2017 Care Plan: A1C HPLC LOINC : 03850-4 Pending 01/26/2017 Appointment: Nirmala Jaramillo WPtel: [address] [place], [place] [phone] [place] INJECTION 11/30/2016 Referral: aSv Goff1 [facility] C&D [id number] Referral Initiated 11/30/2016 Patient Education: Patient Medication [...] : S90.852A 11/29/2016 Appointment: Nirmala Jaramillo WPtel: [address] [place], [place] [phone] ACUTE ILLNESS 11/29/2016 Patient Education: Patient Medication [...] : Z83.49 11/16/2016 Appointment: Nirmala Jaramillo WPtel: [address] [place] [address] FOLLOW UP 11/16/2016 Patient Education: Patient Medication Summary Completed 11/16/2016 Care Plan: Referral Order SNOMED-CT : 30 3708479 Pending 11/16/2016 Appointment: Nirmala Jaramillo WPtel: [address] [place], [place] [phone] [place] RESCHEDULED 11/08/2016 Visit Diagnosis Plan: Other hypertrophic disorders of the skin Discussion: Irritated skin tags excised at base and then bases cauterized ICD-9 : 701.9 ICD-10 : L91.8 10/05/2016 Appointment: Nirmala Jaramillo WPtel: [address] [place], [place] [phone] [phone] confirmed-sp OFFICE SURGERY 10/05/2016 Patient Education: Patient Medication Summary Completed 10/05/2016 Appointment: Nirmala Jaramillo WPtel: [address] [place], [place] [phone] [place] Per doctor~sl 09/09 canceled due to [...] : R74.8 09/06/2016 Appointment: Nirmala Jaramillo WPtel: [address] [place] [address] 09/02 lm~sl FOLLOW UP 09/06/2016 Patient Education: Patient Medication Summary Completed 09/06/2016 Patient Education: Patient Medication Summary Completed 08/18/2016 Care Plan: ACUTE HEPATITIS PANEL LOINC : 69370-9 Pending 08/18/2016 Care Plan: TICKBORNE DISEASE PANEL [...] : R05 08/16/2016 Appointment: Nirmala Jaramillo WPtel: [address] [place] [address] 08/13 confirmed `sl WORK IN 08/16/2016 Patient Education: Patient Medication Summary Completed 08/16/2016 Care Plan: MAMMOGRAM SCREENING Grandmother Juliane Ca in late LOINC : 53858-0 Pending 08/16/2016 Patient Education: Patient Medication Summary Completed 07/27/2016 Visit Diagnosis Plan: Acute bronchitis, unspecified Di scussion: Rxs as above Borrow neb machine until home with hers if needed OTC meds reviewed Watch BSs closely Follow up if not improving ICD-9 : 466.0 ICD-10 : J20.9 06/23/2016 Appointment: Ananya Lopez [address] [place] [address] ACUTE ILLNESS 06/23/2016 Patient Education: Patient Medication Summary Completed 06/23/2016 Appointment: [facility]irm[facility]illo [facility]Ptel: [phone] [facility] [place] INJECTION 03/09/2016 Patient Education: Patient Medication Summary Completed 03/09/2016 Appointment: Nirmala Jaramillo WPtel: [address] [place], [place] [phone] [place] INJECTION 02/16/2016 Visit Plan: Decrease Breo to 100/25mcg 1 p BID for another week Flu shot with Prevnar 13 next week if covered Refill metformin 12/18/2015 Appointment: Nirmala Jaramillo WPtel: [address] [place], [place] [phone] 12/16 confirmed`sl FOLLOW UP 12/18/2015 Patient Education: Patient Medication Summary Completed 12/18/2015 [facility] - Even Patien tIDs Completed 12/18/2015 Visit Plan: CXR negative Kenalog/Dexamet hasone today Add Breo 200 1p BID for 1 week then Breo 100 1 p BID Tussionex rx given Continue SVNs with albuterol BID Notify if worsening Recheck 1week 12/11/2015 Appointment: Nirmala Jaramillo WPtel: [address] [place], [place] [phone] ACUTE ILL[facility] 12/11/2015 Patient Education: Patient Medication Summary Completed 12/11/2015 Visit Plan: Patient sounds and appears i mproved Continue mucinex, vit C, breathing treatments, humidifier, vicks, etc CXR on am and will call with report before the weekend Monitor for any return of concerning symptoms - fevers, chills, worsening cough, etc 12/08/2015 Appointment: Ananya Lopez [address] [place], [place] [id number] 12/04 Lm~sl....confirmed-sp FOLLOW UP 11/28 Patient Education: Patient Medication Summary Completed 12/08/2015 Visit Plan: [facility] above meds has nebulizer machine she [...] 12/01/2015 Appointment: Ananya Lopez [address] [id number] 11/30 lm ~sl NEW PATIENT 12/01/2015 Patient Education: Patient Medication Summary Completed 12/01/2015 Referral: Dhruv Montalvo WPtel: [address] [id number] [place] Referral Appointment Requested Referral: Chan Chavez WPtel: [address] [facility] [address] [id number] [place] Referral Completed Referral: Dhruv Lubin WPtel: [address] [facility] 3 [id number] Referral Initiated Instructions Comment . Saline nasal [...] cough, etc . Finish levaquin ordered by [employer] Add above meds has nebulizer machine she [...]
--- OUTSIDE RECORDS SUMMARY | 2019-05-18 13:15 | XMS REPORT | CCD ---
Author Author Veronica Lopez Organization NIRMALA JARAMILLO DO [facility] Address [address] [place] [address] Phone Unavailable Care Team Providers Care Paper Sorter And Counter Name Role Phone Nirmala Jaramillo D.O., PP Unavailable CCM Unavailable Summary Purpose Interface Exchange Insurance Providers Payer name Policy type / Coverage type Covered constitution party ID Effective Begin Date Effective End Date [employer] Commercial Insurance [id number] Unknown Family History Family History data not found Social History Social History Element Codes Description Effective Dates Marital status Unknown 12/01/2015 Number of children Unknown 3 12/01/2015 Employment Unknown Currently employed 12/01/[address]: 681836750 Never smoker 12/01/[address]: 060822838 Never drinks alcohol 2015 Allergies, Adverse Reactions, [...] Start Date Stop Date Status Fill Instructions Trulicity 0.75 mg/0.5 mL subcutaneous pen injector RxNorm: 1 218203 INJECT 1 DOSE SUB-Q ONCE WEEKLY 03/27/2019 05/21/2019 Active promethazine 6.25 mg-codeine 10 mg/5 mL syrup RxNorm: 964651 5 Milliliter(s) Oral Q4H as needed 03/26/2019 No Stop Date Active amlodipine 5 mg tablet RxNorm: 201607 TAKE 1 TABLET BY MOUTH 02/19/2019 05/19/2019 Active Trulicity 0.75 mg/0.5 mL subcutaneous pen injector RxNorm: 1 998485 INJECT 1 DOSE SUB-Q ONCE WEEKLY 02/19/2019 03/18/2019 Inactive Lexapro 20 mg tablet RxNorm: 280040 1 TABLET(S) PO QD 01/04/201905/2019 Active lisinopril 40 mg tablet RxNorm: 770619 1 TABLET(S) PO QD 12/05/2018 0 04/03/2019 Active scopolamine 1 mg over 3 days transdermal patch RxNorm: 39440 2 1 Application Transdermal Q72H 11/27/2018 11/26/2018 Inactive scopolamine 1 mg over 3 days transdermal patch RxNorm: 51742 2 1 Application Transdermal Q72H 11/27/2018 11/27/2018 Inactive ondansetron HCl 4 mg tablet RxNorm: 467214 1 Tablet(s) Oral Q4H as needed for nausea 11/27/2018 11/27/2018 Inactive ondansetron HCl 4 mg tablet RxNorm: 918535 1 Tablet(s) Oral Q4H as needed for nausea 11/27/2018 11/26/2018 Inactive amlodipine 5 mg tablet RxNorm: 662149 1 TABLET(S) PO QD 11/20/2018 Inactive Xanax 0.25 mg tablet RxNorm: 821337 1 Tablet(s) PO as needed 2018 No Stop Date Active ProAir HFA 90 mcg/actuation aerosol inhaler RxNorm: 476216 2 Puff(s) INH Q4H as needed 10/31/2018 No Stop Date Active if insurance das s not cover, please switch to ventolin. prednisone 20 mg tablet RxNorm: 314372 1 Tablet(s) PO BID 10/31/2018 11/04/2018 Inactive Zithromax Z-Ab 250 mg tablet RxNorm: 133102 Tablet(s) take as directed PO 10/31/2018 01/22/2019 Inactive Trulicity 0.75 mg/0.5 mL subcutaneous pen injector RxNorm: 1 410293 1 Unit Dose SQ QW 10/31/2018 02/18/2019 Inactive Ozempic 0.25 mg or 0.5 mg (2 mg/1.5 mL) subcutaneous p en injector RxNorm: 4087810 0.5 Milligram(s) SQ QW 10/09/2018 10/30/2018 Inactive Ozempic 0.25 mg or 0.5 mg (2 mg/1.5 mL) subcutaneous p en injector RxNorm: 4327889 0.5 Gram(s) SQ QW 10/05/2018 10/08/2018 Inactive lisinopril 40 mg tablet RxNorm: 682534 1 Tablet(s) PO QD 09/18/2018 1 Inactive metformin 1,000 mg tablet RxNorm: 302210 1 TABLET(S) PO QD 09/07/19 19 03/04/2019 Inactive Trulicity 0.75 mg/0.5 mL subcutaneous pen injector RxNorm: 1 772170 0.75 Milligram(s) SQ QW Replaces Ozemic 08/28/2018 10/30/2018 Inactive replaces Ozempic Ozempic 0.25 mg or 0.5 mg (2 mg/1.5 mL) subcutaneous p en injector RxNorm: 2955278 0.5 Milligram(s) SQ WEEKLY 08/28/2018 10/05/2018 Inactive metformin 1,000 mg tablet RxNorm: 752429 1 Tablet(s) PO QD 08/24/1909/05/2018 Inactive Ozempic 0.25 mg or 0.5 mg (2 mg/1.5 mL) subcutaneous p en injector RxNorm: 3239684 0.5 Milligram(s) SQ WEEKLY 08/03/2018 08/27/2018 Inactive amlodipine 5 mg tablet RxNorm: 406089 1 Tablet(s) PO QD 07/25/2018 Inactive Lexapro 20 mg tablet RxNorm: 851599 1 Tablet(s) PO QD 07/10/201807/2018 Inactive lisinopril 40 mg tablet RxNorm: 093439 1 Tablet(s) PO QD 07/10/2018 0 09/07/2018 Inactive amlodipine 5 mg tablet RxNorm: 127913 1 Tablet(s) PO QD 06/22/2018 Inactive lisinopril 40 mg tablet RxNorm: 376489 1 Tablet(s) PO QD 06/22/2018 0 07/09/2018 Inactive lisinopril 20 mg tablet RxNorm: 283147 1 Tablet(s) PO QD 06/19/2018 0 06/21/2018 Inactive lisinopril 5 mg tablet RxNorm: 688510 1 Tablet(s) PO QD 06/13/2018 Inactive metformin 1,000 mg tablet RxNorm: 352368 Tablet(s) TABLET(S) 1 TABLET(S) PO QD 06/08/2018 08/22/2018 Inactive Tamiflu 75 mg capsule RxNorm: 579147 1 Capsule(s) PO BID 04/26/2018 0 04/30/2018 Inactive Tamiflu 75 mg capsule RxNorm: 547904 1 Capsule(s) PO BID 04/26/2018 0 04/25/2018 Inactive prednisone 10 mg tablet RxNorm: 732074 1 Tablet(s) PO TID 04/25/2018 04/29/2018 Inactive prednisone 20 mg tablet RxNorm: 546039 1 Tablet(s) PO BID 04/14/2018 04/20/2018 Inactive Augmentin 500 mg-125 mg tablet RxNorm: 751749 1 Tablet(s) PO BID 04/20/2018 Inactive metformin 1,000 mg tablet RxNorm: 418309 TABLET(S) 1 TABLET(S) PO Q D 03/09/2018 06/06/2018 Inactive celecoxib 200 mg capsule RxNorm: 376021 1 Capsule(s) PO BID for diana n 01/31/2018 03/01/2018 Inactive metformin 1,000 mg tablet RxNorm: 406486 1 Tablet(s) PO BID 018 No Stop Date Active Medrol (Ab) 4 mg tablets in a dose pack RxNorm: 114241 Tablet(s) PO take as directed 01/23/2018 01/30/2018 Inactive Lexapro 20 mg tablet RxNorm: 873646 Tablet(s) 1 TABLET(S) PO QD 06/21/2018 Inactive Lexapro 20 mg tablet RxNorm: 050442 Tablet(s) 1 TABLET(S) PO QD 07/201701/22/2018 Inactive metformin 1,000 mg tablet RxNorm: 722834 1 Tablet(s) PO BID 018 01/22/2018 Inactive Lexapro 20 mg tablet RxNorm: 692848 Tablet(s) 1 TABLET(S) PO QD 11/02/2017 Inactive metformin 1,000 mg tablet RxNorm: 653009 Tablet(s) 1 TABLET(S) PO Q D 09/22/2017 09/26/2017 Inactive Xanax 0.25 mg tablet RxNorm: 015476 1 Tablet(s) PO as needed 201710/30/2018 Inactive metformin 1,000 mg tablet RxNorm: 213998 Tablet(s) 1 TA BLET(S) PO QD NEEDS UPDATED LABS 09/06/2017 09/20/2017 Inactive metformin 1,000 mg tablet RxNorm: 397970 1 TABLET(S) PO QD NEED S UPDATED LABS 08/24/2017 09/05/2017 Inactive metformin 1,000 mg tablet RxNorm: 756136 1 Tablet(s) PO QD Need s updated labs 08/08/2017 08/22/2017 Inactive Lexapro 20 mg tablet RxNorm: 165677 1 TABLET(S) PO QD 07/17/201708/29 Inactive pseudoephedrine 30 mg tablet RxNorm: 3295944 1-2 Tablet(s) PO Q6H 0 07/05/2017 06/12/2018 Inactive Augmentin 875 mg-125 mg tablet RxNorm: 285689 1 Tablet(s) PO BID 07/14/2017 Inactive metformin 1,000 mg tablet RxNorm: 591476 1 Tablet(s) PO QD Need s updated labs 07/04/2017 08/08/2017 Inactive metformin 1,000 mg tablet RxNorm: 360128 1 Tablet(s) PO QD Need s updated labs 05/30/2017 07/04/2017 Inactive Levaquin 750 mg tablet RxNorm: 789500 1 Tablet(s) PO QD 03/04/2017 Inactive ProAir HFA 90 mcg/actuation aerosol inhaler RxNorm: 128766 2 Puff(s) INH Q4H as needed 03/04/2017 07/04/2017 Inactive if insurance das s not cover, please switch to ventolin. Tamiflu 75 mg capsule RxNorm: 875708 1 Capsule(s) PO QD 03/04/2017 Inactive metformin 1,000 mg tablet RxNorm: 052381 1 Tablet(s) PO QD 02/16/20 17 05/15/2017 Inactive Lexapro 20 mg tablet RxNorm: 871283 1 Tablet(s) PO QD 01/17/201707/2017 Inactive cephalexin 500 mg capsule RxNorm: 744945 1 Capsule(s) PO TID 201612/08/2016 Inactive pantoprazole 40 mg tablet,delayed release RxNorm: 980366 1 Tabl et(s) PO QD 11/16/2016 03/15/2017 Inactive metformin 1,000 mg tablet RxNorm: 603383 TAKE 1 TABLET BY MOUTH EVERY DAY 10/10/2016 02/15/2017 Inactive Flonase Allergy Relief 50 mcg/actuation nasal spray,suspensi on RxNorm: 7039262 [address] [place] NASAL QHS 09/06/2016 11/15/2016 Inactive Singulair 10 mg tablet RxNorm: 551067 1 Tablet(s) PO QHS 09/06/2016 0 11/15/2016 Inactive Singulair 10 mg tablet RxNorm: 450137 1 Tablet(s) PO QHS 08/12/2016 0 09/05/2016 Inactive ProAir HFA 90 mcg/actuation aerosol inhaler RxNorm: 394389 1 Puff(s) INH Q4H as needed 08/12/2016 08/15/2016 Inactive Medrol (Ab) 4 mg tablets in a dose pack RxNorm: 405404 Tablet(s) PO As Directed 07/29/2016 08/15/2016 Inactive Lexapro 20 mg tablet RxNorm: 080641 1 Tablet(s) PO QD 07/06/201612/30 Inactive doxycycline hyclate 100 mg capsule RxNorm: 0612505 1 Capsule(s) PO BID 06/24/2016 06/23/2016 Inactive doxycycline hyclate 100 mg capsule RxNorm: 9634097 1 Capsule(s) PO BID 06/24/2016 07/03/2016 Inactive ProAir HFA 90 mcg/actuation aerosol inhaler RxNorm: 251927 1 Puff(s) INH Q4H as needed 06/23/2016 08/11/2016 Inactive prednisone 20 mg tablet RxNorm: 377206 1 Tablet(s) PO BID 06/23/2016 06/27/2016 Inactive metformin 1,000 mg tablet RxNorm: 842550 1 Tablet(s) PO QD 12/18/19 16 06/14/2016 Inactive Lexapro 20 mg tablet RxNorm: 151809 1 Tablet(s) PO QD 12/18/2015 05/10/2016 Inactive prednisone 20 mg tablet RxNorm: 757349 Take 3 tabs PO Q D x 3 days, then 2 tabs PO QD x 3 days, then 1 tab PO QD x 3 days 12/01/2015 12/10/2015 Inacti ve albuterol sulfate 2.5 mg/3 mL (0.083 %) solution for n ebulization RxNorm: 971172 3 Milliliter(s) INH Q4H as needed 12/01/2015 07/04/2017 Inactiv e Singulair 10 mg tablet RxNorm: 733361 1 Tablet(s) PO QHS No Start D ate 08/11/2016 Inactive Breo Ellipta 100 mcg-25 mcg/dose powder for inhalation RxNor m: 2594578 1 Puff(s) INH QD No Start Date 02/01/2017 Inactive Zyrtec 10 mg tablet RxNorm: 9850474 1 Tablet(s) PO QAM No Start Date 11/15/2016 Inactive Xanax 0.25 mg tablet RxNorm: 315907 1 Tablet(s) PO as needed No Sta rt Date 09/21/2017 Inactive metformin 1,000 mg tablet RxNorm: 830815 1 Tablet(s) PO QD No Start Date 12/17/2015 Inactive Singulair 10 mg tablet RxNorm: 859818 1 Tablet(s) PO QHS No Start D ate 11/15/2016 Inactive metformin 1,000 mg tablet RxNorm: 023527 1 Tablet(s) PO QD No Start Date 02/14/2017 Inactive metformin 1,000 mg tablet RxNorm: 775823 1 Tablet(s) PO BID No Star t Date 09/26/2017 Inactive Trulicity 0.75 mg/0.5 mL subcutaneous pen injector RxNorm: 1 316691 0.75 Milligram(s) SQ QW No Start Date 08/27/2018 Inactive Medrol (Ab) 4 mg tablets in a dose pack RxNorm: 785421 Tablet(s) PO As Directed No Start Date 07/28/2016 Inactive Lexapro 20 mg tablet RxNorm: 882196 1 Tablet(s) PO QD No Start Date 1 Inactive Lexapro 20 mg tablet RxNorm: 803749 1 Tablet(s) PO QD No Start Date 0 07/09/2018 Inactive Medication Administered No Medication Administered data Immunizations Vaccine Codes Date Status Tetanus, Diptheria, Pertussis CVX: 115 11/30/2016 Co mplete Pneumococcal CVX: 133 03/09/2016 Complete Results Observation Observation Code Item Item Code Result Date S ervice Location VIRAL HEPATITIS PROFILE #2 09308 Hep A IgM Non-Reactive 06/20/2018 Unknown VIRAL HEPATITIS PROFILE #2 37831 Hep B Core IgM Non-Reac tive 06/20/2018 Unknown VIRAL HEPATITIS PROFILE #2 52166 Hepatitis C Ab Non-Reac tive 06/20/2018 Unknown VIRAL HEPATITIS PROFILE #2 42571 Hep Bs Ag Non-Reactive 06/20/2018 Unknown MEAN GLUC 7576987 Calc Mean Gluc 194 mg/dL 06/19/2018 Unkn own COMPREHENSIVE METABOLIC 42570 AST 94 U/L 2018 Unknown COMPREHENSIVE METABOLIC 23783 ALT 160 U/L 2018 Unknown COMPREHENSIVE METABOLIC 82148 BUN 9 mg/dL 2018 Unknown COMPREHENSIVE METABOLIC 61086 ALBUMIN 4.6 g/dL 2018 Unknown COMPREHENSIVE METABOLIC 13701 CHLORIDE 101 mmol/L 06/19 Unknown COMPREHENSIVE METABOLIC 06364 Bili Total 0.9 mg/dL 06/19 Unknown COMPREHENSIVE METABOLIC 41571 ALK PHOS 64 U/L 2018 Unknown COMPREHENSIVE METABOLIC 29500 SODIUM 136 mmol/L 06/19 Unknown COMPREHENSIVE METABOLIC 03126 CREATININE 0.58 mg/dL 05/30 Unknown COMPREHENSIVE METABOLIC 75683 CALCIUM 10.3 mg/dL 06/19 Unknown COMPREHENSIVE METABOLIC 45120 POTASSIUM 3.7 mmol/L 06/19 Unknown COMPREHENSIVE METABOLIC 83772 Total Protein 7.1 g/dL Unknown COMPREHENSIVE METABOLIC 57052 Glucose 187 mg/dL 2018 Unknown COMPREHENSIVE METABOLIC 16206 Bicarbonate 26 mmol/L 05/30 Unknown COMPREHENSIVE METABOLIC 58774 AGAP 9 mmol/L 2018 Unknown GLYCOSYLATED HEMOGLOBIN TEST 60982 Hgb A1c 88967-9 8.4 % 0 06/19/2018 Unknown COMPLETE BLOOD COUNT 7386605 WBC 6.2 10e9/L 06/20/19 19 Unknown COMPLETE BLOOD COUNT 2688340 RBC 4.70 10e12/L 2018 Unknown COMPLETE BLOOD COUNT 5791980 HEMOGLOBIN 13.4 g/dL 06/20/19 19 Unknown COMPLETE BLOOD COUNT 8877476 HEMATOCRIT 39.9 % 06/20/19 19 Unknown COMPLETE BLOOD COUNT 4323561 MCV 84.9 fL 9 Unknown COMPLETE BLOOD COUNT 2795590 MCH 28.5 pg 9 Unknown COMPLETE BLOOD COUNT 6099997 MCHC 33.6 g/dL 9 Unknown COMPLETE BLOOD COUNT 6410010 PLATELET COUNT 252 10e9/L Unknown COMPLETE BLOOD COUNT 5552814 Mean Plt Volume 12.2 fL Unknown COMPLETE BLOOD COUNT 1838059 Neut Auto 53.9 % 9 Unknown COMPLETE BLOOD COUNT 7824006 Lymph Auto 35.2 % 06/20/19 19 Unknown COMPLETE BLOOD COUNT 6774537 [place] Auto 7.1 % 9 Unknown COMPLETE BLOOD COUNT 0882645 Eos Auto 3.2 % 9 Unknown COMPLETE BLOOD COUNT 9000248 RDW 14.1 % 9 Unknown COMPLETE BLOOD COUNT 7866074 Baso Auto 0.6 % 9 Unknown COMPLETE BLOOD COUNT 7822755 Neutrophil Abs 3.34 10e9/L Unknown COMPLETE BLOOD COUNT 6053601 Lymphocyte Abs 2.18 10e9/L Unknown COMPLETE BLOOD COUNT 3563129 Monocyte Abs 0.44 10e9/L 05/30 Unknown COMPLETE BLOOD COUNT 3655890 Eosinophil Abs 0.20 10e9/L Unknown COMPLETE BLOOD COUNT 1574363 RDW-SD 42.7 fL 9 Unknown COMPLETE BLOOD COUNT 7864664 Basophil Abs 0.04 10e9/L 05/30 Unknown THYROID STIMULATING HORMONE 95731 TSH 1.976 uIU/mL 06/19/2018 Unknown GFR CALC 6890992 GFR Non Afr Amr >60 mL/min 06/19/2018 Un known GFR CALC 0986812 GFR Afr Amr >60 mL/min 06/19/2018 Unknow n SURESWAB(R), BACTERIAL VAGINOSIS/VAGINITIS 14650 BV CATEGORY: TNP 09/27/2017 [facility] [address] [facility] [place] [address] SURESWAB(R), BACTERIAL VAGINOSIS/VAGINITIS 90208 LACTOBACILLUS S PECIES DNR 09/27/2017 [facility] [address] [facility] [place] [address] SURESWAB(R), BACTERIAL VAGINOSIS/VAGINITIS 71214 ATOPOBIUM VAGIN AE DNR 09/27/2017 [facility] [address] [place] [address],[place] [address] SURESWAB(R), BACTERIAL VAGINOSIS/VAGINITIS 10991 MEGASPHAERA SPE CIES DNR 09/27/2017 [facility] [address] [place] [address] SURESWAB(R), BACTERIAL VAGINOSIS/VAGINITIS 56342 GARDNERELLA VAG INALIS DNR 09/27/2017 [facility] [address] SURESWAB(R), BACTERIAL VAGINOSIS/VAGINITIS 81584 SURESWAB(R) TRICHOMONAS VAGINALIS RNA, QL TMA TNP 09/27/2017 [facility] [address] [place] [address] SURESWAB(R), BACTERIAL VAGINOSIS/VAGINITIS 02716 C. ALBICANS, DN A TNP 09/27/2017 [facility] [address] SURESWAB(R), BACTERIAL VAGINOSIS/VAGINITIS 90946 C. GLABRATA, DN A DNR 09/27/2017 [facility] [address] [place] [address] SURESWAB(R), BACTERIAL VAGINOSIS/VAGINITIS 50194 C. TROPICALIS, DNA DNR 09/27/2017 [facility] [address] [place] [address] SURESWAB(R), BACTERIAL VAGINOSIS/VAGINITIS 32811 C. PARAPSILOSIS , DNA DNR 09/27/2017 [facility] [address] [place] [address] THINPREP TIS AND HPV mRNA E6/E7 73399 REPORT STATUS: DNR 09/27/2017 [place] [address] [place] [address] [address] THINPREP TIS AND HPV mRNA E6/E7 02534 CLINICAL INFORMATION: 09/27/2017 [place] [address] [place] [address] [address] THINPREP TIS AND HPV mRNA E6/E7 98922 LMP: 201709/27/[address] [place] [address] [address] THINPREP TIS AND HPV mRNA E6/E7 95218 PREV. PAP: 09/27/[address] [place] [address] [address] THINPREP TIS AND HPV mRNA E6/E7 07775 PREV. BX: 09/27/[address] [place] [address] [address] THINPREP TIS AND HPV mRNA E6/E7 82514 SOURCE: Cerv ix 09/27/2017 [place] [address] THINPREP TIS AND HPV mRNA E6/E7 49453 STATEMENT OF ADEQUACY: 09/27/2017 [place] [address] THINPREP TIS AND HPV mRNA E6/E7 45643 GENERAL CATEGORIZATION: DNR 09/27/2017 [place] [address] THINPREP TIS AND HPV mRNA E6/E7 74148 INTERPRETATION/RESULT: 09/27/2017 [place] [address] THINPREP TIS AND HPV mRNA E6/E7 98543 INFECTION: DNR 09/27/2017 [place] [address] THINPREP TIS AND HPV mRNA E6/E7 73037 COMMENT: 09/27/2017 [place] [address] THINPREP TIS AND HPV mRNA E6/E7 51111 DIRECTOR OF INSTRUCTION: 09/27/2017 [place] [address] THINPREP TIS AND HPV mRNA E6/E7 02500 REVIEW DIRECTOR OF INSTRUCTION: LORETTA 09/27/2017 [facility] [address] [place] [address] THINPREP TIS AND HPV mRNA E6/E7 68588 PATHOLOGIST: KHLOE Srivastava 09/27/2017 [facility] [address] [place] [address] THINPREP TIS AND HPV mRNA E6/E7 68931 COMMENT 09/27/2017 [facility] [place] [address] THINPREP TIS AND HPV mRNA E6/E7 98875 HPV mRNA E6/E7 Not Detected 09/27/2017 [facility] [address] [place] [address] CULTURE, GENITAL 01985 CULTURE, GENITAL SEE NOTE [facility] [address] [place] [address] CULTURE, THROAT 05697 CULTURE, THROAT SEE NOTE 07/30 [facility] [place] [address] Procedures Procedure Codes Date INFLUENZA ASSAY W/OPTIC CPT-4: 45430 03/26/2019 DEXAMETHASONE SODIUM PHOS CPT-4: J1100 03/26/2019 THER/PROPH/DIAG INJ SC/IM CPT-4: 15865 03/26/2019 TRIAMCINOLONE ACET INJ NOS CPT-4: J3301 03/26/2019 DRAIN/INJECT JOINT/BURSA CPT-4: 74055 01/23/2019 ROUTINE VENIPUNCTURE CPT-4: 44840 06/19/2018 COMPLETE CBC W/AUTO DIFF WBC CPT-4: 23258 06/19/2018 COMPREHEN METABOLIC PANEL CPT-4: 92088 06/19/2018 A1C HPLC CPT-4: 57102 06/19/2018 ASSAY THYROID STIM HORMONE CPT-4: 09040 06/19/2018 URINALYSIS NONAUTO W/O SCOPE CPT-4: 97996 06/19/2018 ACUTE HEPATITIS PANEL CPT-4: 95144 06/19/2018 INFLUENZA ASSAY W/OPTIC CPT-4: 49705 04/26/2018 STREP A ASSAY W/OPTIC CPT-4: 94347 04/25/2018 THROAT CULTURE CPT-4: 44061 04/25/2018 CEFTRIAXONE SODIUM INJECTION CPT-4: J0696 11/10/2017 DEXAMETHASONE SODIUM PHOS CPT-4: J1100 11/10/2017 THER/PROPH/DIAG INJ SC/IM CPT-4: 52562 11/10/2017 TRIAMCINOLONE ACET INJ NOS CPT-4: J3301 11/10/2017 OCCULT BLOOD FECES CPT-4: 30922 09/22/2017 SURESWAB(R), BACTERIAL VAGINOSIS/VAGINITIS CPT-4: 78770 09/22/2017 CULTURE, GENITAL CPT-4: 63220 09/22/2017 TDAP VACCINE 7 YRS/> IM CPT-4: 95694 11/30/2016 IMMUNIZATION ADMIN CPT-4: 82996 11/30/2016 REMOVAL OF FOOT FOREIGN BODY CPT-4: 65397 11/29/2016 REMOVAL OF SKIN TAGS <W/15 CPT-4: 87429 10/05/2016 CULTURE, THROAT CPT-4: 32886 08/16/2016 PNEUMOCOCCAL VACC 13 AYSHA IM CPT-4: 67831 03/09/2016 IMMUNIZATION ADMIN CPT-4: 58203 03/09/2016 THER/PROPH/DIAG INJ SC/IM CPT-4: 27844 12/11/2015 TRIAMCINOLONE ACET INJ NOS CPT-4: J3301 [...] 1: 126/84 Code: 8480-6 BMI: 39.9 Code: 72392-6 Heart Rate 1: 80 bpm Height: 5'2" [...] 1: 126/82 Code: 8480-6 BMI: 40.6 Code: 38789-8 Heart Rate 1: 72 bpm Height: 5'2" [...] 1: 124/68 Code: 8480-6 BMI: 41.7 Code: 26661-5 Heart Rate 1: 66 bpm Height: 5'2" Respiratory Rate: 20 bpm SpO2: 98% Tempera ture: 36.2 (C) / 97.2 (F) Weight: 228 lbs 09/22/2017 Blood Pressure 1: 142/80 Code: 8480-6 BMI: 41.3 Code: 31789-9 Heart Rate 1: 60 bpm Height: 5'2" Respiratory Rate: 20 bpm SpO2: 98% Tempera ture: 36.3 (C) / 97.3 (F) Weight: 226 lbs 07/05/2017 Blood Pressure 1: 129/82 Code: 8480-6 BMI: 42.3 Code: 23388-0 Heart Rate 1: 60 bpm Height: 5'2" SpO2: 97% Temperature: 36.4 (C) / 97.6 (F) Weight: 231 lbs 03/04/2017 Blood Pressure 1: 142/80 Code: 8480-6 BMI: 42.4 Code: 94877-7 Heart Rate 1: 74 bpm Height: 5'2" Respiratory Rate: 24 bpm SpO2: 97% Tempera ture: 36.4 (C) / 97.6 (F) Weight: 232 lbs 02/02/2017 Blood Pressure 1: 146/82 Code: 8480-6 BMI: 42.4 Code: 38682-5 Heart Rate 1: 84 bpm Height: 5'2" Respiratory Rate: 20 bpm SpO2: 98% Tempera ture: 36.6 (C) / 97.9 (F) Weight: 232 lbs 11/29/2016 Blood Pressure 1: 126/78 Code: 8480-6 Heart Rate 1: 76 bpm Height: 5'2" Respiratory Rate: 20 bpm SpO2: 96% Temperature: 36 .9 (C) / 98.4 (F) 11/16/2016 Blood Pressure 1: 136/94 Code: 8480-6 BMI: 42.6 Code: 04062-8 Heart Rate 1: 68 bpm Height: 5'2" Respiratory Rate: 20 bpm SpO2: 96% Tempera ture: 36.9 (C) / 98.4 (F) Weight: 233 lbs 10/05/2016 Blood Pressure 1: 112/78 Code: 8480-6 BMI: 41.5 Code: 38213-9 Heart Rate 1: 80 bpm Height: 5'2" Respiratory Rate: 20 bpm SpO2: 97% Tempera ture: 36.8 (C) / 98.2 (F) Weight: 227 lbs 09/06/2016 Blood Pressure 1: 126/82 Code: 8480-6 BMI: 42.4 Code: 12622-9 Heart Rate 1: 64 bpm Height: 5'2" Respiratory Rate: 20 bpm SpO2: 98% Tempera ture: 37.0 (C) / 98.6 (F) Weight: 232 lbs 08/16/2016 Blood Pressure 1: 136/82 Code: 8480-6 BMI: 42.1 Code: 96081-0 Heart Rate 1: 72 bpm Height: 5'2" [...] 1: 144/80 Code: 8480-6 BMI: 40.4 Code: 62638-9 Heart Rate 1: 92 bpm Height: 5'2" Respiratory Rate: 20 bpm SpO2: 95% Tempera ture: 36.8 (C) / 98.2 (F) Weight: 221 lbs 12/08/2015 Blood Pressure 1: 124/78 Code: 8480-6 Heart Rate 1: 108 bpm Height: 5'2" Respiratory Rate: 22 bpm SpO2: 95% Temperature: 36.2 (C) / 97.2 (F) Weight: 12/01/2015 Blood Pressure 1: 124/78 Code: 8480-6 BMI: 40.4 Code: 36448-1 Heart Rate 1: 92 bpm Height: 5'2" [...] leg cough 11/10/2017 patient was seen at [facility] and given Levaquin and 5 day [...] care Encounters Encounter Performer Location Codes Date ([id number]) OFFICE/OUTPATIENT VISIT EST Diagnosis: Upper respiratory infection[ICD10: J06.9] Diagnosis: Viral syndrome[ICD10: B34.9] Lisbeth Saskiakyler [employer] CPT-4: 80818 03/26/2019 ([id number]) OFFICE/OUTPATIENT VISIT EST Diagnosis: Acute upper respiratory infection, unspecified[ICD10: J06.9] Diagnosis: Generalized anxiety disorder[ICD10: F41.1] Diagnosis: Type 2 diabetes mellitus with hyperglycemia[ICD10: E11.65] Diagnosis: Encounter for therapeutic drug level monitoring[ICD10: Z51.81] Lisbeth Saskiakyler GIMENEZ [employer] CPT-4: 21184 10/31/2018 ([id number]) OFFICE/OUTPATIENT VISIT EST Diagnosis: Type 2 diabetes mellitus with hyperglycemia[ICD10: E11.65] Diagnosis: Essential (primary) hypertension[ICD10: I10] Nirmala JARAMILLO DO [facility] CPT-4: 22690 08/08/2018 ([id number]) OFFICE/OUTPATIENT VISIT EST Diagnosis: Essential (primary) hypertension[ICD10: I10] Diagnosis: Type 2 diabetes mellitus with hyperglycemia[ICD10: E11.65] Diagnosis: Other fatigue[ICD10: R53.83] Nirmala JARAMILLO [employer] CPT-4: 01465 07/06/2018 ([id number]) OFFICE/OUTPATIENT VISIT EST Diagnosis: Dizziness and giddiness[ICD10: R42] Diagnosis: Elevated blood-pressure reading, without diagnosis of hypertension[ICD10: R03.0] Shell JARAMILLO [employer] CPT- 4: 61829 06/19/2018 ([id number]) OFFICE/OUTPATIENT VISIT EST Diagnosis: Essential (primary) hypertension[ICD10: I10] Diagnosis: Dizziness and giddiness[ICD10: R42] Shell JARAMILLO [employer] CPT-4: 75213 06/13/2018 ([id number]) NURSE/OUTPATIENT VISIT EST Diagnosis: Influenza due to identified novel influenza A virus with other manifestations[ICD10: J09.X9] Nirmala JARAMILLO [employer] [facility] CPT-4: 52520 04/26/2018 OFFICE/OUTPATIENT VISIT EST Diagnosis: Pain in throat[ICD10: R07.0] Diagnosis: Acute pharyngitis, unspecified[ICD10: J02.9] Shell JARAMILLO [employer] CPT-4: 35162 04/25/2018 ([id number]) OFFICE/OUTPATIENT VISIT EST Diagnosis: Acute sinusitis, unspecified[ICD10: J01.90] Diagnosis: Paresthesia of skin[ICD10: R20.2] Nirmala ORNELASLIN Joselito JARAMILLO [employer] CPT-4: 96313 04/14/2018 ([id number]) OFFICE/OUTPATIENT VISIT EST Diagnosis: Pain in right leg[ICD10: M79.604] Diagnosis: Sciatica, right side[ICD10: M54.31] Nirmala JARAMILLO [employer] CPT-4: 81815 01/31/2018 ([id number]) OFFICE/OUTPATIENT VISIT EST Diagnosis: Pain in right leg[ICD10: M79.604] Lisbeth JARAMILLO [employer] CPT-4: 73098 01/23/2018 ([id number]) OFFICE/OUTPATIENT VISIT EST Diagnosis: Acute bronchitis, unspecified[ICD10: J20.9] Lisbeth JARAMILLO DO [employer] CPT-4: 96472 11/10/2017 ([id number]) PREV VISIT EST AGE 40-64 Diagnosis: Encounter [...] Diagnosis: Nonalcoholic steatohepatitis (MOORE)[ICD10: K75.81] Lisbeth [employer] CPT-4: 19081 09/22/2017 ([id number]) OFFICE/OUTPATIENT VISIT EST Diagnosis: Acute sinusitis, unspecified[ICD10: J01.90] Lisbeth JARAMILLO DO [employer] CPT-4: 46415 07/05/2017 OFFICE/OUTPATIENT VISIT EST Diagnosis: Pneumonia, unspecified organism[ICD10: J18.9] Lisbeth JARAMILLO [employer] CPT-4: 08302 03/04/2017 ([id number]) OFFICE/OUTPATIENT VISIT EST Diagnosis: Polycystic ovarian syndrome[ICD10: E28.2] Diagnosis: Abnormal levels of other serum enzymes[ICD10: R74.8] Diagnosis: Nonalcoholic steatohepatitis (MOORE)[ICD10: K75.81] Diagnosis: Impaired glucose tolerance (oral)[ICD10: R73.02] Nirmala JARAMILLO DO [facility] CPT-4: 56504 02/02/2017 ([id number]) OFFICE/OUTPATIENT VISIT EST Diagnosis: VACCINE FOR TDAP[ICD10: Z23] Nirmala JARAMILLO DO [facility] CPT-4: 95489 11/30/2016 ([id number]) OFFICE/OUTPATIENT VISIT EST Diagnosis: Cough[ICD10: R05] Diagnosis: Abnormal levels of other serum enzymes[ICD10: R74.8] Diagnosis: Family history of other endocrine, nutritional and metabolic diseases[ICD10: Z83.49] Nirmala JARAMILLO DO [facility] CPT-4: 79592 11/16/2016 ([id number]) OFFICE/OUTPATIENT VISIT EST Diagnosis: Cough[ICD10: R05] Diagnosis: Other seasonal allergic rhinitis[ICD10: J30.2] Diagnosis: Abnormal levels of other serum enzymes[ICD10: R74.8] Nirmala JARAMILLO DO [facility] CPT-4: 52050 09/06/2016 ([id number]) OFFICE/OUTPATIENT VISIT EST Diagnosis: Cough[ICD10: R05] Diagnosis: Polycystic ovarian syndrome[ICD10: E28.2] Nirmala JARAMILLO DO [facility] CPT-4: 76850 08/16/2016 ([id number]) OFFICE/OUTPATIENT VISIT EST Diagnosis: Acute bronchitis, unspecified[ICD10: J20.9] Diagnosis: Acute upper respiratory infection, unspecified[ICD10: J06.9] Ananya Lopez NIRMALA JARAMILLO DO [facility] CPT-4: 93619 06/23/2016 ([id number]) OFFICE/OUTPATIENT VISIT EST Diagnosis: PNEUMOCOCCAL VACCINE[ICD10: Z23] Nirmala JARAMILLO DO [facility] CPT-4: 46324 03/09/2016 ([id number]) OFFICE/OUTPATIENT VISIT EST Diagnosis: Pneumonia, unspecified organism[ICD10: J18.9] Diagnosis: Polycystic ovarian syndrome[ICD10: E28.2] Diagnosis: Generalized anxiety disorder[ICD10: F41.1] Nirmala Jaramillo NIRMALA [employer] CPT-4: 53217 12/18/2015 ([id number]) OFFICE/OUTPATIENT VISIT EST Diagnosis: Cough[ICD10: R05] Diagnosis: Acute bronchospasm[ICD10: J98.01] Nirmala ORNELASDAMON JARAMILLO [employer] CPT-4: 57473 12/11/2015 ([id number]) OFFICE/OUTPATIENT VISIT EST Diagnosis: Pneumonia, unspecified organism[ICD10: J18.9] Ananya [employer]AMILLO [employer] CPT-4: 00279 12/08/2015 OFFICE/OUTPATIENT VISIT NEW Diagnosis: Pneumonia, unspecified organism[ICD10: J18.9] Ananya JAARMILLO [employer] CPT-4: 58075 12/01/2015 Plan of Care Planned Activity Notes Codes Status Date Visit Diagnosis Plan: Upper respiratory infection Disc ussion: influenza neg. kenalog/dexa 40/4 given in office due to severity of symptoms and patient's hx of pneumonia. instructed to call office tomorrow with worsening symptoms, otherwise push fluids and cough syrup prn. ICD-9 : 465.9 ICD-10 : J06.9 03/26/2019 Appointment: Lisbeth Kruger [address] [place] [address] ACUTE ILLNESS 03/26/2019 Visit Diagnosis Plan: Tibial collateral bursitis of ri ght knee Discussion: Bursa injection as above PELON wrap/rest Notify in 1-2 weeks how knee is doing ICD-9 : 726.62 ICD-10 : M76.41 01/23/2019 Appointment: Nirmala Jaramillo WPtel: [phone] ACUTE ILLNESS 01/23/2019 Care Plan: Referral Order SNOMED-CT : 30 [id number] Pending 01/23/2019 Visit Diagnosis Plan: Type 2 [...] ICD-10 : F41.1 10/31/2018 Appointment: Lisbeth Kruger [address] [place], [place] [address] ACUTE ILLNESS 10/31/2018 Patient Education: Trulicity- [employer] Coupon [id number] https://www.[employer]/samplemd/resources/getResource/61/w836r2l0-t371-4a55-mi Completed 10/31/2018 Patient Education: Xanax- [employer] Coupon [id number] https://www.[employer]/samplemd/resources/getResource/61/qa33792j-0309-53z9-rf b2-900k295t9802.pdf Completed 10/31/2018 Patient Education: prednisone- Opt[employer] Coupon [id number] https://www.[employer]/samplemd/resources/getResource/61/380qx396-9676-17p1-07 Completed 10/31/2018 Patient Education: ProAir HFA- Opt[employer] Coupon [id number] https://www.[employer]/samplemd/resources/getResource/61/5bu66114-17c1-1581-81 Completed 10/31/2018 Visit Diagnosis Plan: Type 2 diabetes mellitus with hy perglycemia Discussion: Lab discussed Accuchecks daily Continue current meds Check CMP and HbA1C end september then fwup ICD-9 : 250.02 ICD-10 : E11.65 08/08/2018 Visit Diagnosis Plan: Essential (primary) hypertension Discussion: Stable ICD-9 : 401.9 ICD-10 : I10 08/08/2018 Appointment: Nirmala Jaramillo WPtel: [address] [place], [place] [phone] [place] FOLLOW UP 08/08/2018 Visit Diagnosis Plan: Essential (primary) hypertension Discussion: Improved with last med adjustment BP and pulse check in 2 weeks ICD-9 : 401.9 ICD-10 : I10 07/06/2018 Visit Diagnosis Plan: Other fatigue Discussion: Discus sed may be from new meds/body adjusting Add Children's MV with iron, Vitamin D 1000u daily and Magnesium oxide 400mg daily due to HAs ICD-9 : 780.79 ICD-10 : R53.83 07/06/2018 Visit Diagnosis Plan: Type 2 diabetes mellitus with hy perglycemia Discussion: Lab discussed Accuchecks daily Continue current meds Check CMP and HbA1C in 3mos then fwup Follow Up: 1 months ICD-9 : 250.02 ICD-10 : E11.65 07/06/2018 Appointment: Nirmala Jaramillo WPtel: [address] [place], [place] [address] [place] FOLLOW UP 07/06/2018 Appointment: Nirmala Jaramillo WPtel: [address] [place], [place] [phone] [place] Consult 06/22/2018 Patient Education: lisinopril- [employer] Coupon [id number] https://www.[employer]/samplemd/resources/getResource/61/651h06u4-nkb9-9957-je Completed 06/22/2018 Visit Diagnosis Plan: Dizziness and giddiness Discussi on: Recommend scheduling appt with digital account supervisor. ICD-9 : 780.4 ICD-10 : R42 06/19/2018 Visit Diagnosis Plan: Essential (primary) hypertension Discussion: Increased lisinopril from 5 QD to 20 mg QD. Labs today- CBC, CMP, TSH, A1C. UA today- trace protein. hematuria (patient on period). ICD-9 : 401.9 ICD-10 : I10 06/19/2018 Appointment: Shell Vega [address] [place], [place] [phone] FOLLOW UP 06/19/2018 Visit Diagnosis Plan: Dizziness and giddiness Discussi on: Most likely related to HTN. Advised to notify clinic if dizziness worsens or does not subside. Return to clinic LETY or go to ED with severe headache, vision changes, dyspnea, chest pain. Patient states understanding of all instruction. ICD-9 : 780.4 ICD-10 : R42 06/13/2018 Visit Diagnosis Plan: Essential (primary) hypertension Discussion: Lisinopril 5 mg PO QD- return for BP check in 2 weeks. ICD-9 : 401.9 ICD-10 : I10 06/13/2018 Appointment: Shell Vega [address] [place], [place] [address] ACUTE ILLNESS 06/13/2018 Appointment: Nirmala Jaramillo WPtel: [phone] FLU SWAB 04/26/2018 Visit Diagnosis Plan: Pain in throat Discussion: Rapid Strep A- negative Throat culture- pending. Will call patient with results. Prednisone 10 mg TID x 5 days. Supportive care- fluids, tylenol for pain, humidified air. ICD-9 : 784.1 ICD-10 : R07.0 04/25/2018 Appointment: Shell Vega [address] [place] [address] ACUTE ILLNESS 04/25/2018 Visit Plan: Saline nasal flushes prn. Ty lenol/Motrin prn headache. Notify if persists/symptoms worsening. 04/14/2018 Visit Diagnosis Plan: Paresthesia of skin Discussion: Carpal tunnel wrist splints Will see if prednisone helps Discussed EMGs if persists ICD-9 : 782.0 ICD-10 : R20.2 04/14/2018 Visit Diagnosis Plan: Acute sinusitis, unspecified Dis cussion: Augmentin and prednisone Humidifier ICD-9 : 461.9 ICD-10 : J01.90 04/14/2018 Visit NOS Plan: Plan Notes: Saline nasal flu shes prn. Tyle... 04/14/2018 Appointment: Nirmala Jaramillo WPtel: [phone] [facility] ACUTE ILLNESS 04/14/2018 Patient Education: prednisone- Opt[employer] Coupon [id number] https://www.[employer]/samplemd/resources/getResource/61/8sik82yn-n2x9-34t3-o3 Completed 04/14/2018 Visit Diagnosis Plan: Pain in right leg Discussion: Ch dickson right tib/fib x-ray and start celebrex May need PT ICD-9 : 729.5 ICD-10 : M79.604 01/31/2018 Visit Diagnosis Plan: Sciatica, right side Discussion: Check L/S spine x-ray ICD-9 : 724.3 ICD-10 : M54.31 01/31/2018 Appointment: Nirmala Jaramillo WPtel: [facility]7 [facility] FOLLOW UP 01/31/2018 Care Plan: X-RAY EXAM L-S SPINE 2/3 VWS LOINC : 41428-5 Pending 01/31/2018 Care Plan: X-RAY EXAM OF LOWER LEG LOINC : 75350-4 Pending 01/31/2018 Visit Diagnosis Plan: Pain in [...] ICD-10 : M79.604 01/23/2018 Appointment: Lisbeth Kruger [address] [place] [address] ACUTE ILLNESS 01/23/2018 Visit Diagnosis Plan: Acute [...] : J20.9 11/10/2017 Appointment: Lisbeth Kruger 504 [facility] ACUTE ILLNESS 11/10/2017 Patient Education: Patient Medication Summary Completed 11/10/2017 Care Plan: CHEST X-RAY 2VW FRONTAL&LATL LOINC : 41290-7 Pending 11/10/2017 Patient Education: Patient Medication Summary Completed 09/26/2017 Care Plan: A1C HPLC LOINC : 72101-0 Pending 09/26/2017 Visit Diagnosis Plan: Encounter for scre ening mammogram for malignant neoplasm of breast Discussion: mammogram ordered to be comp leted at [facility]. breast exam performed in office. ICD-9 : V76.11 ICD-10 : Z12.31 09/22/2017 Visit Diagnosis Plan: Impaired glucose tolerance (oral ) Discussion: metformin daily. will update fasting labs and patient to have completed this week or first part of next. ICD-9 : 790.22 ICD-10 : R73.02 09/22/2017 Visit Diagnosis Plan: Encounter for [facility] adult medical examination without abnormal findings Discussion: fasting blood work ordered t o be obtained at [facility] in the next few days when fasting. [...] ICD-10 : Z01.411 09/22/2017 Appointment: Lisbeth Kruger [address] [place], [place] [phone] Annual Well Visit 09/22/2017 Patient Education: Patient [...] : J01.90 07/05/2017 Appointment: Lisbeth Kruger 504 [facility] ACUTE ILLNESS 07/05/2017 Patient Education: Patient Medication [...] : J18.9 03/04/2017 Appointment: Lisbeth Kruger [address] [facility] FOLLOW UP 03/04/2017 Patient Education: Patient Medication [...] 790.22 ICD-10 : R73.02 02/02/2017 Appointment: Nirmala Jaramillotel: [phone] [facility] FOLLOW UP 02/02/2017 Patient Education: Patient Medication Summary Completed 02/02/2017 Care Plan: Referral Order SNOMED-CT : 30 [id number] Pending 02/02/2017 Patient Education: Patient Medication Summary Completed 01/28/2017 Care Plan: ACUTE HEPATITIS PANEL LOINC : 31912-8 Pending 01/28/2017 Patient Education: Patient Medication Summary Completed 01/26/2017 Care Plan: COMPREHEN METABOLIC PANEL [place] NC : 57367-6 Pending 01/26/2017 Care Plan: A1C HPLC LOINC : 00716-0 Pending 01/26/2017 Appointment: Nirmala Jaramillo WPtel: [address] [place], [place] [phone] [place] INJECTION 11/30/2016 Referral: Sav Goff [facility] C&D [id number] [place] Referral Initiated 11/30/2016 Patient Education: Patient [...] : S90.852A 11/29/2016 Appointment: Nirmala Jaramillo WPtel: [address] [place] [address] ACUTE ILLNESS 11/29/2016 Patient Education: Patient Medication Summary Completed 11/29/2016 Visit Diagnosis Plan: Family history of other endocrine, nutritional and metabolic diseases Discussion: Check TSH, Free T4, TT# Follow Up: As needed ICD-9 : V18.19 ICD-10 : Z83.49 11/16/2016 Visit Diagnosis Plan: Cough Discussion: Check PFT Star t Protonix See pulmonology ICD-9 : 786.2 ICD-10 : R05 11/16/2016 Visit Diagnosis Plan: Abnormal levels of other serum e nzymes Discussion: Check LFTs ICD-9 : 790.5 ICD-10 : R74.8 11/16/2016 Appointment: Nirmala Jaramillo WPtel: [address] [place], [place] [phone] [place] FOLLOW UP 11/16/2016 Patient Education: Patient Medication Summary Completed 11/16/2016 Care Plan: Referral Order SNOMED-CT : 30 7019803 Pending 11/16/2016 Appointment: Nirmala Jaramillo WPtel: [address] [place], [place] [phone] [place] RESCHEDULED 11/08/2016 Visit Diagnosis Plan: Other hypertrophic disorders of the skin Discussion: Irritated skin tags excised at base and then bases cauterized ICD-9 : 701.9 ICD-10 : L91.8 10/05/2016 Appointment: Nirmala Jaramillo WPtel: [phone] [facility] [id number] confirmed-sp OFFICE SURGERY 10/05/2016 Patient Education: Patient Medication Summary Completed 10/05/2016 Appointment: Nirmala Jaramillo WPtel: [phone] [facility] [place] Per doctor~sl 09/09 canceled due to work ~sl CANC ELED 09/10/2016 Visit Diagnosis Plan: Cough [...] : 790.5 ICD-10 : R74.8 09/06/2016 Appointment: iNrmala Jaramillo WPtel: [phone] [facility] [place] 7/6 lm~sl FOLLOW UP 09/06/2016 Patient Education: Patient Medication Summary Completed 09/06/2016 Patient Education: Patient Medication Summary Completed 08/18/2016 Care Plan: ACUTE HEPATITIS PANEL LOINC : 45059-7 Pending 08/18/2016 Care Plan: TICKBORNE DISEASE PANEL (WITH LYME ANTIBODY Pending 08/18/2016 Visit Diagnosis Plan: Cough Discussion: Throat culture Stop Proair Continue humidifier, and supportive therapy ENT if culture negative and persists Follow Up: 2 weeks ICD-9 : 786.2 ICD-10 : R05 08/16/2016 Visit Diagnosis Plan: Polycystic ovarian syndrome Disc ussion: Annual labs TSH, Free T4, CBC, CMP, lipids ICD-9 : 256.4 ICD-10 : E28.2 08/16/2016 Appointment: Nirmala Jaramillo WPtel: [address] [place], [place] [phone] 08/13 confirmed `sl WORK IN 08/16/2016 Patient Education: Patient Medication Summary Completed 08/16/2016 Care Plan: MAMMOGRAM SCREENING Grandmother Juliane Sahu in late ' LOINC : 71568-6 Pending 08/16/2016 Patient Education: Patient Medication Summary Completed 07/27/2016 Visit Diagnosis Plan: Acute bronchitis, unspecified Di scussion: Rxs as above Borrow neb machine until home with hers if needed OTC meds reviewed Watch BSs closely Follow up if not improving ICD-9 : 466.0 ICD-10 : J20.9 06/23/2016 Appointment: Ananya Lopez [address] [place] [address] ACUTE ILLNESS 06/23/2016 Patient Education: Patient Medication Summary Completed 06/23/2016 Appointment: Nirmala Jaramillo WPtel: [address] [place] [address] [place] INJECTION 03/09/2016 Patient Education: Patient Medication Summary Completed 03/09/2016 Appointment: Nirmala Jaramillo WPtel: [address] [place], [place] [phone] [place] INJECTION 02/16/2016 Visit Plan: Decrease Breo to 100/25mcg 1 p BID for another week Flu shot with Prevnar 13 next week if covered Refill metformin 12/18/2015 Appointment: Nirmala Jaramillo WPtel: [address] [place], [place] [phone] 12/16 confirmed`sl FOLLOW UP 12/18/2015 Patient Education: Patient Medication Summary Completed 12/18/2015 Patient Education: [employer] - Lexapro - $10 Off - Even Patien tIDs Completed 12/18/2015 Visit Plan: CXR negative Kenalog/Dexamet hasone today Add Breo 200 1p BID for 1 week then Breo 100 1 p BID Tussionex rx given Continue SVNs with albuterol BID Notify if worsening Recheck 1week 12/11/2015 Appointment: Nirmala Jaramillol: [phone] [facility] AC[facility]LL[facility] 12/11/2015 Patient Education: Patient Medication Summary Completed 12/11/2015 Visit Plan: Patient sounds and appears i mproved Continue mucinex, vit C, breathing treatments, humidifier, vicks, etc CXR on am and will call with report before the weekend Monitor for any return of concerning symptoms - fevers, chills, worsening cough, etc 12/08/2015 Appointment: Ananya Lopez [address] [facility] 12/04 Lm~sl....confirmed-sp FOLLOW UP 11/28 Patient Education: Patient Medication Summary Completed 12/08/2015 Visit Plan: [facility] meds has nebulizer machine she [...] continuing to improve 12/01/2015 Appointment: Ananya Lopez [address] [place], [place] [phone] 11/30 lm ~sl NEW PATIENT 12/01/2015 Patient Education: Patient Medication Summary Completed 12/01/2015 Referral: Dhruv Montalvo WPtel: [phone] [facility] E [id number] [place] Referral Appointment Requested Referral: Chan Chavez WPtel: [address] [facility] 6 [id number] [place] Referral Completed Referral: Dhruv Lubin WPtel: 107 [facility] 3 [id number] [place] Referral Initiated Instructions Comment . Saline [...] cough, etc . Finish levaquin ordered by [employer] Add above meds has nebulizer machine she [...]
--- OUTSIDE RECORDS SUMMARY | 2019-05-18 13:15 | XMS REPORT | CCD ---
Author Author Veronica Lopez Organization [facility] Address [address] [place] [address] Phone Unavailable Care Team Providers Care Pipe Insulator Name Role Phone Nirmala Jaramillo D.O., PP Unavailable CCM Unavailable Summary Purpose Interface Exchange Insurance Providers Payer name Policy type / Coverage type Covered green party ID Effective Begin Date Effective End Date [employer] Commercial Insurance [id number] Unknown Family History Family History data not found Social History Social History Element Codes Description Effective Dates Marital status Unknown 12/01/2015 Number of children Unknown 3 12/01/2015 Employment Unknown Currently employed 12/01/[address]: 193551805 Never smoker 12/01/[address]: 419590846 Never drinks alcohol 2015 Allergies, Adverse Reactions, [...] Start Date Stop Date Status Fill Instructions Zithromax Z-Ab 250 mg tablet RxNorm: 308845 Tablet(s) Oral jackson e as directed 03/27/2019 03/27/2019 Inactive Trulicity 0.75 mg/0.5 mL subcutaneous pen injector RxNorm: 1 006917 INJECT 1 DOSE SUB-Q ONCE WEEKLY 03/27/2019 05/21/2019 Active Zithromax Z-Ab 250 mg tablet RxNorm: 631118 Tablet(s) Oral jackson e as directed 03/27/2019 03/26/2019 Inactive promethazine 6.25 mg-codeine 10 mg/5 mL syrup RxNorm: 747289 5 Milliliter(s) Oral Q4H as needed 03/26/2019 No Stop Date Active amlodipine 5 mg tablet RxNorm: 334334 TAKE 1 TABLET BY MOUTH 02/19/2019 05/19/2019 Active Trulicity 0.75 mg/0.5 mL subcutaneous pen injector RxNorm: 1 802973 INJECT 1 DOSE SUB-Q ONCE WEEKLY 02/19/2019 03/18/2019 Inactive Lexapro 20 mg tablet RxNorm: 939098 1 TABLET(S) PO QD 01/04/201905/2019 Active lisinopril 40 mg tablet RxNorm: 914493 1 TABLET(S) PO QD 12/05/2018 0 04/03/2019 Active scopolamine 1 mg over 3 days transdermal patch RxNorm: 72149 2 1 Application Transdermal Q72H 11/27/2018 11/26/2018 Inactive scopolamine 1 mg over 3 days transdermal patch RxNorm: 92636 2 1 Application Transdermal Q72H 11/27/2018 11/27/2018 Inactive ondansetron HCl 4 mg tablet RxNorm: 454129 1 Tablet(s) Oral Q4H as needed for nausea 11/27/2018 11/27/2018 Inactive ondansetron HCl 4 mg tablet RxNorm: 425417 1 Tablet(s) Oral Q4H as needed for nausea 11/27/2018 11/26/2018 Inactive amlodipine 5 mg tablet RxNorm: 619673 1 TABLET(S) PO QD 11/20/2018 Inactive Xanax 0.25 mg tablet RxNorm: 295333 1 Tablet(s) PO as needed 2018 No Stop Date Active ProAir HFA 90 mcg/actuation aerosol inhaler RxNorm: 767667 2 Puff(s) INH Q4H as needed 10/31/2018 No Stop Date Active if insurance das s not cover, please switch to ventolin. prednisone 20 mg tablet RxNorm: 360610 1 Tablet(s) PO BID 10/31/2018 11/04/2018 Inactive Zithromax Z-Ab 250 mg tablet RxNorm: 133581 Tablet(s) take as directed PO 10/31/2018 01/22/2019 Inactive Trulicity 0.75 mg/0.5 mL subcutaneous pen injector RxNorm: 1 976620 1 Unit Dose SQ QW 10/31/2018 02/18/2019 Inactive Ozempic 0.25 mg or 0.5 mg (2 mg/1.5 mL) subcutaneous p en injector RxNorm: 1686868 0.5 Milligram(s) SQ QW 10/09/2018 10/30/2018 Inactive Ozempic 0.25 mg or 0.5 mg (2 mg/1.5 mL) subcutaneous p en injector RxNorm: 1632680 0.5 Gram(s) SQ QW 10/05/2018 10/08/2018 Inactive lisinopril 40 mg tablet RxNorm: 671558 1 Tablet(s) PO QD 09/18/2018 1 Inactive metformin 1,000 mg tablet RxNorm: 218809 1 TABLET(S) PO QD 09/07/19 19 03/04/2019 Inactive Trulicity 0.75 mg/0.5 mL subcutaneous pen injector RxNorm: 1 950083 0.75 Milligram(s) SQ QW Replaces Ozemic 08/28/2018 10/30/2018 Inactive replaces Ozempic Ozempic 0.25 mg or 0.5 mg (2 mg/1.5 mL) subcutaneous p en injector RxNorm: 3784780 0.5 Milligram(s) SQ WEEKLY 08/28/2018 10/05/2018 Inactive metformin 1,000 mg tablet RxNorm: 699253 1 Tablet(s) PO QD 08/24/1909/05/2018 Inactive Ozempic 0.25 mg or 0.5 mg (2 mg/1.5 mL) subcutaneous p en injector RxNorm: 8011378 0.5 Milligram(s) SQ WEEKLY 08/03/2018 08/27/2018 Inactive amlodipine 5 mg tablet RxNorm: 686719 1 Tablet(s) PO QD 07/25/2018 Inactive Lexapro 20 mg tablet RxNorm: 646287 1 Tablet(s) PO QD 07/10/201807/2018 Inactive lisinopril 40 mg tablet RxNorm: 040365 1 Tablet(s) PO QD 07/10/2018 0 09/07/2018 Inactive amlodipine 5 mg tablet RxNorm: 244512 1 Tablet(s) PO QD 06/22/2018 Inactive lisinopril 40 mg tablet RxNorm: 831541 1 Tablet(s) PO QD 06/22/2018 0 07/09/2018 Inactive lisinopril 20 mg tablet RxNorm: 786530 1 Tablet(s) PO QD 06/19/2018 0 06/21/2018 Inactive lisinopril 5 mg tablet RxNorm: 576376 1 Tablet(s) PO QD 06/13/2018 Inactive metformin 1,000 mg tablet RxNorm: 882231 Tablet(s) TABLET(S) 1 TABLET(S) PO QD 06/08/2018 08/22/2018 Inactive Tamiflu 75 mg capsule RxNorm: 933672 1 Capsule(s) PO BID 04/26/2018 0 04/30/2018 Inactive Tamiflu 75 mg capsule RxNorm: 239634 1 Capsule(s) PO BID 04/26/2018 0 04/25/2018 Inactive prednisone 10 mg tablet RxNorm: 911559 1 Tablet(s) PO TID 04/25/2018 04/29/2018 Inactive prednisone 20 mg tablet RxNorm: 618870 1 Tablet(s) PO BID 04/14/2018 04/20/2018 Inactive Augmentin 500 mg-125 mg tablet RxNorm: 192620 1 Tablet(s) PO BID 04/20/2018 Inactive metformin 1,000 mg tablet RxNorm: 876832 TABLET(S) 1 TABLET(S) PO Q D 03/09/2018 06/06/2018 Inactive celecoxib 200 mg capsule RxNorm: 191800 1 Capsule(s) PO BID for diana n 01/31/2018 03/01/2018 Inactive metformin 1,000 mg tablet RxNorm: 692232 1 Tablet(s) PO BID 018 No Stop Date Active Medrol (Ab) 4 mg tablets in a dose pack RxNorm: 583147 Tablet(s) PO take as directed 01/23/2018 01/30/2018 Inactive Lexapro 20 mg tablet RxNorm: 283108 Tablet(s) 1 TABLET(S) PO QD 06/21/2018 Inactive Lexapro 20 mg tablet RxNorm: 377635 Tablet(s) 1 TABLET(S) PO QD 07/201701/22/2018 Inactive metformin 1,000 mg tablet RxNorm: 177641 1 Tablet(s) PO BID 018 01/22/2018 Inactive Lexapro 20 mg tablet RxNorm: 007969 Tablet(s) 1 TABLET(S) PO QD 11/02/2017 Inactive metformin 1,000 mg tablet RxNorm: 045184 Tablet(s) 1 TABLET(S) PO Q D 09/22/2017 09/26/2017 Inactive Xanax 0.25 mg tablet RxNorm: 165151 1 Tablet(s) PO as needed 201710/30/2018 Inactive metformin 1,000 mg tablet RxNorm: 702987 Tablet(s) 1 TA BLET(S) PO QD NEEDS UPDATED LABS 09/06/2017 09/20/2017 Inactive metformin 1,000 mg tablet RxNorm: 849274 1 TABLET(S) PO QD NEED S UPDATED LABS 08/24/2017 09/05/2017 Inactive metformin 1,000 mg tablet RxNorm: 333024 1 Tablet(s) PO QD Need s updated labs 08/08/2017 08/22/2017 Inactive Lexapro 20 mg tablet RxNorm: 346702 1 TABLET(S) PO QD 07/17/201708/29 Inactive pseudoephedrine 30 mg tablet RxNorm: 9544419 1-2 Tablet(s) PO Q6H 0 07/05/2017 06/12/2018 Inactive Augmentin 875 mg-125 mg tablet RxNorm: 009594 1 Tablet(s) PO BID 07/14/2017 Inactive metformin 1,000 mg tablet RxNorm: 582113 1 Tablet(s) PO QD Need s updated labs 07/04/2017 08/08/2017 Inactive metformin 1,000 mg tablet RxNorm: 911017 1 Tablet(s) PO QD Need s updated labs 05/30/2017 07/04/2017 Inactive Levaquin 750 mg tablet RxNorm: 472251 1 Tablet(s) PO QD 03/04/2017 Inactive ProAir HFA 90 mcg/actuation aerosol inhaler RxNorm: 613021 2 Puff(s) INH Q4H as needed 03/04/2017 07/04/2017 Inactive if insurance das s not cover, please switch to ventolin. Tamiflu 75 mg capsule RxNorm: 575774 1 Capsule(s) PO QD 03/04/2017 Inactive metformin 1,000 mg tablet RxNorm: 661262 1 Tablet(s) PO QD 02/16/20 17 05/15/2017 Inactive Lexapro 20 mg tablet RxNorm: 929392 1 Tablet(s) PO QD 01/17/201707/2017 Inactive cephalexin 500 mg capsule RxNorm: 986414 1 Capsule(s) PO TID 201612/08/2016 Inactive pantoprazole 40 mg tablet,delayed release RxNorm: 360651 1 Tabl et(s) PO QD 11/16/2016 03/15/2017 Inactive metformin 1,000 mg tablet RxNorm: 316190 TAKE 1 TABLET BY MOUTH EVERY DAY 10/10/2016 02/15/2017 Inactive Flonase Allergy Relief 50 mcg/actuation nasal spray,suspensi on RxNorm: 2471150 2 [place] NASAL QHS 09/06/2016 11/15/2016 Inactive Singulair 10 mg tablet RxNorm: 665668 1 Tablet(s) PO QHS 09/06/2016 0 11/15/2016 Inactive Singulair 10 mg tablet RxNorm: 875902 1 Tablet(s) PO QHS 08/12/2016 0 09/05/2016 Inactive ProAir HFA 90 mcg/actuation aerosol inhaler RxNorm: 858138 1 Puff(s) INH Q4H as needed 08/12/2016 08/15/2016 Inactive Medrol (Ab) 4 mg tablets in a dose pack RxNorm: 582706 Tablet(s) PO As Directed 07/29/2016 08/15/2016 Inactive Lexapro 20 mg tablet RxNorm: 753289 1 Tablet(s) PO QD 07/06/201612/30 Inactive doxycycline hyclate 100 mg capsule RxNorm: 7634864 1 Capsule(s) PO BID 06/24/2016 06/23/2016 Inactive doxycycline hyclate 100 mg capsule RxNorm: 6179710 1 Capsule(s) PO BID 06/24/2016 07/03/2016 Inactive ProAir HFA 90 mcg/actuation aerosol inhaler RxNorm: 636820 1 Puff(s) INH Q4H as needed 06/23/2016 08/11/2016 Inactive prednisone 20 mg tablet RxNorm: 219918 1 Tablet(s) PO BID 06/23/2016 06/27/2016 Inactive metformin 1,000 mg tablet RxNorm: 986911 1 Tablet(s) PO QD 12/18/19 16 06/14/2016 Inactive Lexapro 20 mg tablet RxNorm: 105266 1 Tablet(s) PO QD 12/18/2015 05/10/2016 Inactive prednisone 20 mg tablet RxNorm: 708027 Take 3 tabs PO Q D x 3 days, then 2 tabs PO QD x 3 days, then 1 tab PO QD x 3 days 12/01/2015 12/10/2015 Inacti ve albuterol sulfate 2.5 mg/3 mL (0.083 %) solution for n ebulization RxNorm: 985968 3 Milliliter(s) INH Q4H as needed 12/01/2015 07/04/2017 Inactiv e Singulair 10 mg tablet RxNorm: 693331 1 Tablet(s) PO QHS No Start D ate 08/11/2016 Inactive Breo Ellipta 100 mcg-25 mcg/dose powder for inhalation RxNor m: 1822181 1 Puff(s) INH QD No Start Date 02/01/2017 Inactive Zyrtec 10 mg tablet RxNorm: 0325597 1 Tablet(s) PO QAM No Start Date 11/15/2016 Inactive Xanax 0.25 mg tablet RxNorm: 691148 1 Tablet(s) PO as needed No Sta rt Date 09/21/2017 Inactive metformin 1,000 mg tablet RxNorm: 398202 1 Tablet(s) PO QD No Start Date 12/17/2015 Inactive Singulair 10 mg tablet RxNorm: 139000 1 Tablet(s) PO QHS No Start D ate 11/15/2016 Inactive metformin 1,000 mg tablet RxNorm: 410365 1 Tablet(s) PO QD No Start Date 02/14/2017 Inactive metformin 1,000 mg tablet RxNorm: 329076 1 Tablet(s) PO BID No Star t Date 09/26/2017 Inactive Trulicity 0.75 mg/0.5 mL subcutaneous pen injector RxNorm: 1 297727 0.75 Milligram(s) SQ QW No Start Date 08/27/2018 Inactive Medrol (Ab) 4 mg tablets in a dose pack RxNorm: 726795 Tablet(s) PO As Directed No Start Date 07/28/2016 Inactive Lexapro 20 mg tablet RxNorm: 824500 1 Tablet(s) PO QD No Start Date 1 Inactive Lexapro 20 mg tablet RxNorm: 302354 1 Tablet(s) PO QD No Start Date 0 07/09/2018 Inactive Medication Administered No Medication Administered data Immunizations Vaccine Codes Date Status Tetanus, Diptheria, Pertussis CVX: 115 11/30/2016 Co mplete Pneumococcal CVX: 133 03/09/2016 Complete Results Observation Observation Code Item Item Code Result Date S ervice Location VIRAL HEPATITIS PROFILE #2 27745 Hep A IgM Non-Reactive 06/20/2018 Unknown VIRAL HEPATITIS PROFILE #2 54521 Hep B Core IgM Non-Reac tive 06/20/2018 Unknown VIRAL HEPATITIS PROFILE #2 31305 Hepatitis C Ab Non-Reac tive 06/20/2018 Unknown VIRAL HEPATITIS PROFILE #2 15320 Hep Bs Ag Non-Reactive 06/20/2018 Unknown MEAN GLUC 4414615 Calc Mean Gluc 194 mg/dL 06/19/2018 Unkn own COMPREHENSIVE METABOLIC 15078 AST 94 U/L 2018 Unknown COMPREHENSIVE METABOLIC 95916 ALT 160 U/L 2018 Unknown COMPREHENSIVE METABOLIC 42052 BUN 9 mg/dL 2018 Unknown COMPREHENSIVE METABOLIC 41512 ALBUMIN 4.6 g/dL 2018 Unknown COMPREHENSIVE METABOLIC 39624 CHLORIDE 101 mmol/L 06/19 Unknown COMPREHENSIVE METABOLIC 60386 Bili Total 0.9 mg/dL 06/19 Unknown COMPREHENSIVE METABOLIC 70787 ALK PHOS 64 U/L 2018 Unknown COMPREHENSIVE METABOLIC 98609 SODIUM 136 mmol/L 06/19 Unknown COMPREHENSIVE METABOLIC 24668 CREATININE 0.58 mg/dL 05/30 Unknown COMPREHENSIVE METABOLIC 97320 CALCIUM 10.3 mg/dL 06/19 Unknown COMPREHENSIVE METABOLIC 39132 POTASSIUM 3.7 mmol/L 06/19 Unknown COMPREHENSIVE METABOLIC 53626 Total Protein 7.1 g/dL Unknown COMPREHENSIVE METABOLIC 73627 Glucose 187 mg/dL 2018 Unknown COMPREHENSIVE METABOLIC 08120 Bicarbonate 26 mmol/L 05/30 Unknown COMPREHENSIVE METABOLIC 04871 AGAP 9 mmol/L 2018 Unknown GLYCOSYLATED HEMOGLOBIN TEST 44089 Hgb A1c 93209-3 8.4 % 0 06/19/2018 Unknown COMPLETE BLOOD COUNT 5581223 WBC 6.2 10e9/L 06/20/19 19 Unknown COMPLETE BLOOD COUNT 7761897 RBC 4.70 10e12/L 2018 Unknown COMPLETE BLOOD COUNT 7050537 HEMOGLOBIN 13.4 g/dL 06/20/19 19 Unknown COMPLETE BLOOD COUNT 5810018 HEMATOCRIT 39.9 % 06/20/19 19 Unknown COMPLETE BLOOD COUNT 6670792 MCV 84.9 fL 9 Unknown COMPLETE BLOOD COUNT 0078723 MCH 28.5 pg 9 Unknown COMPLETE BLOOD COUNT 4614333 MCHC 33.6 g/dL 9 Unknown COMPLETE BLOOD COUNT 0846644 PLATELET COUNT 252 10e9/L Unknown COMPLETE BLOOD COUNT 9901558 Mean Plt Volume 12.2 fL Unknown COMPLETE BLOOD COUNT 0899073 Neut Auto 53.9 % 9 Unknown COMPLETE BLOOD COUNT 5233124 Lymph Auto 35.2 % 06/20/19 19 Unknown COMPLETE BLOOD COUNT 3207280 [place] Auto 7.1 % 9 Unknown COMPLETE BLOOD COUNT 9321334 RDW 14.1 % 9 Unknown COMPLETE BLOOD COUNT 9075691 Eos Auto 3.2 % 9 Unknown COMPLETE BLOOD COUNT 2308223 Baso Auto 0.6 % 9 Unknown COMPLETE BLOOD COUNT 3326020 Neutrophil Abs 3.34 10e9/L Unknown COMPLETE BLOOD COUNT 1419928 Lymphocyte Abs 2.18 10e9/L Unknown COMPLETE BLOOD COUNT 9387843 Monocyte Abs 0.44 10e9/L 05/30 Unknown COMPLETE BLOOD COUNT 2371546 Eosinophil Abs 0.20 10e9/L Unknown COMPLETE BLOOD COUNT 4737979 RDW-SD 42.7 fL 9 Unknown COMPLETE BLOOD COUNT 4676259 Basophil Abs 0.04 10e9/L 05/30 Unknown THYROID STIMULATING HORMONE 16480 TSH 1.976 uIU/mL 06/19/2018 Unknown GFR CALC 6339208 GFR Non Afr Amr >60 mL/min 06/19/2018 Un known GFR CALC 8077124 GFR Afr Amr >60 mL/min 06/19/2018 Unknow n SURESWAB(R), BACTERIAL VAGINOSIS/VAGINITIS 34103 BV CATEGORY: TNP 09/27/2017 [facility] [address] [place] [phone] SURESWAB(R), BACTERIAL VAGINOSIS/VAGINITIS 91781 LACTOBACILLUS S PECIES DNR 09/27/2017 [facility] [address] [place] [phone] SURESWAB(R), BACTERIAL VAGINOSIS/VAGINITIS 70963 ATOPOBIUM VAGIN AE DNR 09/27/2017 [facility] [address] [place] [address] SURESWAB(R), BACTERIAL VAGINOSIS/VAGINITIS 32402 MEGASPHAERA SPE CIES DNR 09/27/2017 [facility] [address] [place] [address] SURESWAB(R), BACTERIAL VAGINOSIS/VAGINITIS 77863 GARDNERELLA VAG INALIS DNR 09/27/2017 [facility] [address] SURESWAB(R), BACTERIAL VAGINOSIS/VAGINITIS 25572 SURESWAB(R) TRICHOMONAS VAGINALIS RNA, QL TMA TNP 09/27/2017 [facility] [address] [place] [address] SURESWAB(R), BACTERIAL VAGINOSIS/VAGINITIS 66875 C. ALBICANS, DN A TNP 09/27/2017 [facility] [address] [place] [phone] SURESWAB(R), BACTERIAL VAGINOSIS/VAGINITIS 99550 C. GLABRATA, DN A DNR 09/27/2017 [facility] [address] [place] [phone] SURESWAB(R), BACTERIAL VAGINOSIS/VAGINITIS 99227 C. TROPICALIS, DNA DNR 09/27/2017 [facility] [place] [facility] [address] SURESWAB(R), BACTERIAL VAGINOSIS/VAGINITIS 24260 C. PARAPSILOSIS , DNA DNR 09/27/2017 [facility] [place] [facility] [address] THINPREP TIS AND HPV mRNA E6/E7 64005 REPORT STATUS: DNR 09/27/2017 [facility] [place] [facility] [address] THINPREP TIS AND HPV mRNA E6/E7 84974 CLINICAL INFORMATION: 09/27/2017 [facility] [place] [facility] [address] THINPREP TIS AND HPV mRNA E6/E7 40524 LMP: 201709/27/2017 [facility] [place] [facility] [address] THINPREP TIS AND HPV mRNA E6/E7 69566 PREV. PAP: 09/27/2017 [facility] [place] [facility] [address] THINPREP TIS AND HPV mRNA E6/E7 62625 PREV. BX: 09/27/2017 [facility] [place] [facility] [address] THINPREP TIS AND HPV mRNA E6/E7 71116 SOURCE: Cerv ix 09/27/2017 [facility] [place] [facility] [address] THINPREP TIS AND HPV mRNA E6/E7 25049 STATEMENT OF ADEQUACY: 09/27/2017 [facility] [place] [facility] [address] THINPREP TIS AND HPV mRNA E6/E7 07031 GENERAL CATEGORIZATION: DNR 09/27/2017 [facility] [place] [facility] [address] THINPREP TIS AND HPV mRNA E6/E7 02852 INTERPRETATION/RESULT: 09/27/2017 [facility] [place] [facility] [address] THINPREP TIS AND HPV mRNA E6/E7 86835 INFECTION: DNR 09/27/2017 [facility] [place] [facility] [address] THINPREP TIS AND HPV mRNA E6/E7 90140 COMMENT: 09/27/2017 [facility] [address] THINPREP TIS AND HPV mRNA E6/E7 86416 COMMISSIONED SALES ASSOCIATE: 09/27/2017 [place] [address] THINPREP TIS AND HPV mRNA E6/E7 06401 REVIEW COMMISSIONED SALES ASSOCIATE: KHLOER 09/27/2017 [facility] [address] THINPREP TIS AND HPV mRNA E6/E7 43044 PATHOLOGIST: KHLOE R 09/27/2017 [facility] [place] [address] THINPREP TIS AND HPV mRNA E6/E7 33654 COMMENT 09/27/2017 [place] [address] THINPREP TIS AND HPV mRNA E6/E7 61130 HPV mRNA E6/E7 Not Detected 09/27/2017 [facility] [place] [address] CULTURE, GENITAL 78777 CULTURE, GENITAL SEE NOTE [facility] [address] CULTURE, THROAT 52571 CULTURE, THROAT SEE NOTE 07/30 [place] [address] Procedures Procedure Codes Date INFLUENZA ASSAY W/OPTIC CPT-4: 15457 03/26/2019 DEXAMETHASONE SODIUM PHOS CPT-4: J1100 03/26/2019 THER/PROPH/DIAG INJ SC/IM CPT-4: 73311 03/26/2019 TRIAMCINOLONE ACET INJ NOS CPT-4: J3301 03/26/2019 DRAIN/INJECT JOINT/BURSA CPT-4: 24974 01/23/2019 ROUTINE VENIPUNCTURE CPT-4: 93636 06/19/2018 COMPLETE CBC W/AUTO DIFF WBC CPT-4: 53890 06/19/2018 COMPREHEN METABOLIC PANEL CPT-4: 02351 06/19/2018 A1C HPLC CPT-4: 43537 06/19/2018 ASSAY THYROID STIM HORMONE CPT-4: 07309 06/19/2018 URINALYSIS NONAUTO W/O SCOPE CPT-4: 36612 06/19/2018 ACUTE HEPATITIS PANEL CPT-4: 42551 06/19/2018 INFLUENZA ASSAY W/OPTIC CPT-4: 61828 04/26/2018 STREP A ASSAY W/OPTIC CPT-4: 32044 04/25/2018 THROAT CULTURE CPT-4: 98087 04/25/2018 CEFTRIAXONE SODIUM INJECTION CPT-4: J0696 11/10/2017 DEXAMETHASONE SODIUM PHOS CPT-4: J1100 11/10/2017 THER/PROPH/DIAG INJ SC/IM CPT-4: 48789 11/10/2017 TRIAMCINOLONE ACET INJ NOS CPT-4: J3301 11/10/2017 OCCULT BLOOD FECES CPT-4: 19422 09/22/2017 SURESWAB(R), BACTERIAL VAGINOSIS/VAGINITIS CPT-4: 51312 09/22/2017 CULTURE, GENITAL CPT-4: 89721 09/22/2017 TDAP VACCINE 7 YRS/> IM CPT-4: 59733 11/30/2016 IMMUNIZATION ADMIN CPT-4: 76756 11/30/2016 REMOVAL OF FOOT FOREIGN BODY CPT-4: 11865 11/29/2016 REMOVAL OF SKIN TAGS <W/15 CPT-4: 85150 10/05/2016 CULTURE, THROAT CPT-4: 29939 08/16/2016 PNEUMOCOCCAL VACC 13 AYSHA IM CPT-4: 51986 03/09/2016 IMMUNIZATION ADMIN CPT-4: 26239 03/09/2016 THER/PROPH/DIAG INJ SC/IM CPT-4: 49796 12/11/2015 TRIAMCINOLONE ACET INJ NOS CPT-4: J3301 [...] 1: 126/84 Code: 8480-6 BMI: 39.9 Code: 92223-0 Heart Rate 1: 80 bpm Height: 5'2" [...] 1: 126/82 Code: 8480-6 BMI: 40.6 Code: 75682-6 Heart Rate 1: 72 bpm Height: 5'2" [...] 1: 124/68 Code: 8480-6 BMI: 41.7 Code: 68382-5 Heart Rate 1: 66 bpm Height: 5'2" Respiratory Rate: 20 bpm SpO2: 98% Tempera ture: 36.2 (C) / 97.2 (F) Weight: 228 lbs 09/22/2017 Blood Pressure 1: 142/80 Code: 8480-6 BMI: 41.3 Code: 70821-1 Heart Rate 1: 60 bpm Height: 5'2" Respiratory Rate: 20 bpm SpO2: 98% Tempera ture: 36.3 (C) / 97.3 (F) Weight: 226 lbs 07/05/2017 Blood Pressure 1: 129/82 Code: 8480-6 BMI: 42.3 Code: 27680-4 Heart Rate 1: 60 bpm Height: 5'2" SpO2: 97% Temperature: 36.4 (C) / 97.6 (F) Weight: 231 lbs 03/04/2017 Blood Pressure 1: 142/80 Code: 8480-6 BMI: 42.4 Code: 30820-4 Heart Rate 1: 74 bpm Height: 5'2" Respiratory Rate: 24 bpm SpO2: 97% Tempera ture: 36.4 (C) / 97.6 (F) Weight: 232 lbs 02/02/2017 Blood Pressure 1: 146/82 Code: 8480-6 BMI: 42.4 Code: 66950-7 Heart Rate 1: 84 bpm Height: 5'2" Respiratory Rate: 20 bpm SpO2: 98% Tempera ture: 36.6 (C) / 97.9 (F) Weight: 232 lbs 11/29/2016 Blood Pressure 1: 126/78 Code: 8480-6 Heart Rate 1: 76 bpm Height: 5'2" Respiratory Rate: 20 bpm SpO2: 96% Temperature: 36 .9 (C) / 98.4 (F) 11/16/2016 Blood Pressure 1: 136/94 Code: 8480-6 BMI: 42.6 Code: 08103-0 Heart Rate 1: 68 bpm Height: 5'2" Respiratory Rate: 20 bpm SpO2: 96% Tempera ture: 36.9 (C) / 98.4 (F) Weight: 233 lbs 10/05/2016 Blood Pressure 1: 112/78 Code: 8480-6 BMI: 41.5 Code: 34171-9 Heart Rate 1: 80 bpm Height: 5'2" Respiratory Rate: 20 bpm SpO2: 97% Tempera ture: 36.8 (C) / 98.2 (F) Weight: 227 lbs 09/06/2016 Blood Pressure 1: 126/82 Code: 8480-6 BMI: 42.4 Code: 83143-1 Heart Rate 1: 64 bpm Height: 5'2" Respiratory Rate: 20 bpm SpO2: 98% Tempera ture: 37.0 (C) / 98.6 (F) Weight: 232 lbs 08/16/2016 Blood Pressure 1: 136/82 Code: 8480-6 BMI: 42.1 Code: 61794-1 Heart Rate 1: 72 bpm Height: 5'2" [...] 1: 144/80 Code: 8480-6 BMI: 40.4 Code: 32029-4 Heart Rate 1: 92 bpm Height: 5'2" Respiratory Rate: 20 bpm SpO2: 95% Tempera ture: 36.8 (C) / 98.2 (F) Weight: 221 lbs 12/08/2015 Blood Pressure 1: 124/78 Code: 8480-6 Heart Rate 1: 108 bpm Height: 5'2" Respiratory Rate: 22 bpm SpO2: 95% Temperature: 36.2 (C) / 97.2 (F) Weight: 12/01/2015 Blood Pressure 1: 124/78 Code: 8480-6 BMI: 40.4 Code: 03691-2 Heart Rate 1: 92 bpm Height: 5'2" [...] leg cough 11/10/2017 patient was seen at [facility] and given Levaquin and 5 day [...] care Encounters Encounter Performer Location Codes Date (62871) OFFICE/OUTPATIENT VISIT EST Diagnosis: Upper respiratory infection[ICD10: J06.9] Diagnosis: Viral syndrome[ICD10: B34.9] Lisbeth Smithlexii [facility] CPT-4: 64249 03/26/2019 ([id number]) OFFICE/OUTPATIENT VISIT EST Diagnosis: Acute upper respiratory infection, unspecified[ICD10: J06.9] Diagnosis: Generalized anxiety disorder[ICD10: F41.1] Diagnosis: Type 2 diabetes mellitus with hyperglycemia[ICD10: E11.65] Diagnosis: Encounter for therapeutic drug level monitoring[ICD10: Z51.81] Lisbeth J[facility]ILLO [email or web address] CPT-4: 48158 10/31/2018 ([id number]) OFFICE/OUTPATIENT VISIT EST Diagnosis: Type 2 diabetes mellitus with hyperglycemia[ICD10: E11.65] Diagnosis: Essential (primary) hypertension[ICD10: I10] Nirmala JARAMILLO [email or web address] CPT-4: 73666 08/08/2018 ([id number]) OFFICE/OUTPATIENT VISIT EST Diagnosis: Essential (primary) hypertension[ICD10: I10] Diagnosis: Type 2 diabetes mellitus with hyperglycemia[ICD10: E11.65] Diagnosis: Other fatigue[ICD10: R53.83] Nirmala JARAMILLO [email or web address] CPT-4: 53167 07/06/2018 ([id number]) OFFICE/OUTPATIENT VISIT EST Diagnosis: Dizziness and giddiness[ICD10: R42] Diagnosis: Elevated blood-pressure reading, without diagnosis of hypertension[ICD10: R03.0] Shell Vega NIRMALA Shantal JARAMILLO [email or web address] CPT- 4: 85298 06/19/2018 ([id number]) OFFICE/OUTPATIENT VISIT EST Diagnosis: Essential (primary) hypertension[ICD10: I10] Diagnosis: Dizziness and giddiness[ICD10: R42] Shell RUIZ Shantal JARAMILLO [facility] CPT-4: 18860 06/13/2018 ([id number]) NURSE/OUTPATIENT VISIT EST Diagnosis: Influenza due to identified novel influenza A virus with other manifestations[ICD10: J09.X9] Nirmala JARAMILLO [email or web address] CPT-4: 00778 04/26/2018 OFFICE/OUTPATIENT VISIT EST Diagnosis: Pain in throat[ICD10: R07.0] Diagnosis: Acute pharyngitis, unspecified[ICD10: J02.9] Shell WHITINGQUELINE Shantal JARAMILLO [facility] CPT-4: 08804 04/25/2018 ([id number]) OFFICE/OUTPATIENT VISIT EST Diagnosis: Acute sinusitis, unspecified[ICD10: J01.90] Diagnosis: Paresthesia of skin[ICD10: R20.2] Nirmala WHITINGQUELIN Joselito JARAMILLO [facility] CPT-4: 39530 04/14/2018 ([id number]) OFFICE/OUTPATIENT VISIT EST Diagnosis: Pain in right leg[ICD10: M79.604] Diagnosis: Sciatica, right side[ICD10: M54.31] Nirmala Jaramillo HENOKYUNI RUIZ Shantal JARAMILLO [facility] CPT-4: 95726 01/31/2018 ([id number]) OFFICE/OUTPATIENT VISIT EST Diagnosis: Pain in right leg[ICD10: M79.604] Lisbeth JARAMILLO [facility] CPT-4: 44014 01/23/2018 ([id number]) OFFICE/OUTPATIENT VISIT EST Diagnosis: Acute bronchitis, unspecified[ICD10: J20.9] Lisbeth JARAMILLO [facility] CPT-4: 35802 11/10/2017 ([id number]) PREV VISIT EST AGE 40-64 Diagnosis: Encounter [...] Diagnosis: Nonalcoholic steatohepatitis (MOORE)[ICD10: K75.81] Lisbeth JARAMILLO [facility] CPT-4: 58497 09/22/2017 ([id number]) OFFICE/OUTPATIENT VISIT EST Diagnosis: Acute sinusitis, unspecified[ICD10: J01.90] Lisbeth JARAMILLO [email or web address] CPT-4: 10336 07/05/2017 OFFICE/OUTPATIENT VISIT EST Diagnosis: Pneumonia, unspecified organism[ICD10: J18.9] Lisbeth JARAMILLO DO [facility] CPT-4: 38715 03/04/2017 ([id number]) OFFICE/OUTPATIENT VISIT EST Diagnosis: Polycystic ovarian syndrome[ICD10: E28.2] Diagnosis: Abnormal levels of other serum enzymes[ICD10: R74.8] Diagnosis: Nonalcoholic steatohepatitis (MOORE)[ICD10: K75.81] Diagnosis: Impaired glucose tolerance (oral)[ICD10: R73.02] Nirmala JARAMILLO [employer] [facility] CPT-4: 03137 02/02/2017 ([id number]) OFFICE/OUTPATIENT VISIT EST Diagnosis: VACCINE FOR TDAP[ICD10: Z23] Nirmala JARAMILLO DO [facility] CPT-4: 97435 11/30/2016 ([id number]) OFFICE/OUTPATIENT VISIT EST Diagnosis: Cough[ICD10: R05] Diagnosis: Abnormal levels of other serum enzymes[ICD10: R74.8] Diagnosis: Family history of other endocrine, nutritional and metabolic diseases[ICD10: Z83.49] Nirmala JARAMILLO [employer] [facility] CPT-4: 02844 11/16/2016 ([id number]) OFFICE/OUTPATIENT VISIT EST Diagnosis: Cough[ICD10: R05] Diagnosis: Other seasonal allergic rhinitis[ICD10: J30.2] Diagnosis: Abnormal levels of other serum enzymes[ICD10: R74.8] Nirmala JARAMILLO [employer] [facility] CPT-4: 77774 09/06/2016 ([id number]) OFFICE/OUTPATIENT VISIT EST Diagnosis: Cough[ICD10: R05] Diagnosis: Polycystic ovarian syndrome[ICD10: E28.2] Nirmala JARAMILLO [employer] [facility] CPT-4: 42572 08/16/2016 ([id number]) OFFICE/OUTPATIENT VISIT EST Diagnosis: Acute bronchitis, unspecified[ICD10: J20.9] Diagnosis: Acute upper respiratory infection, unspecified[ICD10: J06.9] Ananya Lopez NIRMALA JARAMILLO [employer] [facility] CPT-4: 35497 06/23/2016 ([id number]) OFFICE/OUTPATIENT VISIT EST Diagnosis: PNEUMOCOCCAL VACCINE[ICD10: Z23] Nirmala JARAMILLO [email or web address] CPT-4: 14071 03/09/2016 ([id number]) OFFICE/OUTPATIENT VISIT EST Diagnosis: Pneumonia, unspecified organism[ICD10: J18.9] Diagnosis: Polycystic ovarian syndrome[ICD10: E28.2] Diagnosis: Generalized anxiety disorder[ICD10: F41.1] Nirmala JARAMILLO [employer] CPT-4: 49271 12/18/2015 ([id number]) OFFICE/OUTPATIENT VISIT EST Diagnosis: Cough[ICD10: R05] Diagnosis: Acute bronchospasm[ICD10: J98.01] Nirmaal JARAMILLO [employer] CPT-4: 29503 12/11/2015 ([id number]) OFFICE/OUTPATIENT VISIT EST Diagnosis: Pneumonia, unspecified organism[ICD10: J18.9] Ananya JARAMILLO [employer] [facility] CPT-4: 10117 12/08/2015 OFFICE/OUTPATIENT VISIT NEW Diagnosis: Pneumonia, unspecified organism[ICD10: J18.9] Ananya JARAMILLO [employer] CPT-4: 46645 12/01/2015 Plan of Care Planned Activity Notes Codes Status Date Visit Diagnosis Plan: Upper respiratory infection Disc ussion: influenza neg. kenalog/dexa 40/4 given in office due to severity of symptoms and patient's hx of pneumonia. instructed to call office tomorrow with worsening symptoms, otherwise push fluids and cough syrup prn. ICD-9 : 465.9 ICD-10 : J06.9 03/26/2019 Appointment: Lisbeth Kruger [address] [place], [place] [address] ACUTE ILLNESS 03/26/2019 Visit Diagnosis Plan: Tibial collateral bursitis of ri ght knee Discussion: Bursa injection as above PELON wrap/rest Notify in 1-2 weeks how knee is doing ICD-9 : 726.62 ICD-10 : M76.41 01/23/2019 Appointment: [facility]irm[facility]illo [facility]el[facility] [phone] [facility] [facility] 01/23/2019 Care Plan: Referral Order SNOMED-CT : 30 [id number] Pending 01/23/2019 Visit Diagnosis Plan: Type 2 diabetes mellitus with hy perglycemia Discussion: greg grimes and will prescribe trulicity. coupon card given [...] ICD-10 : F41.1 10/31/2018 Appointment: Lisbeth Kruger [address] [place] [address] ACUTE ILLNESS 10/31/2018 Patient Education: Trulicity- [employer] C[employer] [id number] https://www.[employer]/samplemd/resources/getResource/61/b279q1f4-w244-4e17-pq Completed 10/31/2018 Patient Education: Xanax- [employer] Coupon [id number] https://www.[employer]/samplemd/resources/getResource/61/ox97698a-3310-31v3-pa b2-279a702k6527.pdf Completed 10/31/2018 Patient Education: prednisone- [employer] Coupon [id number] [phone] https://www.[employer]/samplemd/resources/getResource/61/781sk943-5019-20d9-25 Completed 10/31/2018 Patient Education: ProAir HFA- [employer] Coupon [phone] https://www.[employer]/samplemd/resources/getResource/61/1ua32350-39q4-8571-76 Completed 10/31/2018 Visit Diagnosis Plan: Type 2 diabetes mellitus with hy perglycemia Discussion: Lab discussed Accuchecks daily Continue current meds Check CMP and HbA1C end of September then fwup ICD-9 : 250.02 ICD-10 : E11.65 08/08/2018 Visit Diagnosis Plan: Essential (primary) hypertension Discussion: Stable ICD-9 : 401.9 ICD-10 : I10 08/08/2018 Appointment: Nirmala Jaramillo WPtel: [address] [place], [place] [phone] [place] FOLLOW UP 08/08/2018 Visit Diagnosis Plan: [...] : R53.83 07/06/2018 Appointment: Nirmala Jaramillo WPtel: [address] [place], [place] [phone] [place] FOLLOW UP 07/06/2018 Appointment: Nirmala Jaramillo WPtel: [address] [place], [place] [phone] [place] Consult 06/22/2018 Patient Education: lisinopril- [employer] Coupon [id number] https://www.[employer]/samplemd/resources/getResource/61/040x32v2-bui2-6569-nu Completed 06/22/2018 Visit Diagnosis Plan: Essential (primary) hypertension Discussion: Increased lisinopril from 5 QD to 20 mg QD. Labs today- CBC, CMP, TSH, A1C. UA today- trace protein. hematuria (patient on period). ICD-9 : 401.9 ICD-10 : I10 06/19/2018 Visit Diagnosis Plan: Dizziness and giddiness Discussi on: Recommend scheduling appt with sql programmer. ICD-9 : 780.4 ICD-10 : R42 06/19/2018 Appointment: Shell Vega [address] [place], [place] [address] FOLLOW UP 06/19/2018 Visit Diagnosis Plan: Essential [...] ICD-10 : R42 06/13/2018 Appointment: Shell Vega [address] [place], [place] [id number] ACUTE ILLNESS 06/13/2018 Appointment: Nirmala Jaramillo WPtel: [phone] FLU SWAB 04/26/2018 Visit Diagnosis Plan: Pain in throat Discussion: Rapid Strep A- negative Throat culture- pending. Will call patient with results. Prednisone 10 mg TID x 5 days. Supportive care- fluids, tylenol for pain, humidified air. ICD-9 : 784.1 ICD-10 : R07.0 04/25/2018 Appointment: Shell Vega [address] [place], [place] [phone] ACUTE ILLNESS 04/25/2018 Visit Plan: Saline nasal [...] : J01.90 04/14/2018 Appointment: Nirmala Jaramillo WPtel: [address] [place] [address] ACUTE ILLNESS 04/14/2018 Patient Education: prednisone- [employer] Coupon [id number] https://www.[employer]/samplemd/resources/getResource/61/4uzf88ef-l1l0-03v1-q5 Completed 04/14/2018 Visit Diagnosis Plan: Pain in right leg Discussion: Ch dickson right tib/fib x-ray and start celebrex May need PT ICD-9 : 729.5 ICD-10 : M79.604 01/31/2018 Visit Diagnosis Plan: Sciatica, right side Discussion: Check L/S spine x-ray ICD-9 : 724.3 ICD-10 : M54.31 01/31/2018 Appointment: Nirmala Jaramillo WPtel: [address] [place] [address] FOLLOW UP 01/31/2018 Care Plan: X-RAY EXAM L-S SPINE 2/3 VWS LOINC : 23880-7 Pending 01/31/2018 Care Plan: X-RAY EXAM OF LOWER LEG LOINC : 27874-6 Pending 01/31/2018 Visit Diagnosis Plan: Pain in [...] ICD-10 : M79.604 01/23/2018 Appointment: Lisbeth Kruger [address] [place] [address] ACUTE ILLNESS 01/23/2018 Visit Diagnosis Plan: Acute [...] ICD-10 : J20.9 11/10/2017 Appointment: Lisbeth Kruger [address] [place], [place] [address] ACUTE ILLNESS 11/10/2017 Patient Education: Patient Medication Summary Completed 11/10/2017 Care Plan: CHEST X-RAY 2VW FRONTAL&LATL LOINC : 30549-9 Pending 11/10/2017 Patient Education: Patient Medication Summary Completed 09/26/2017 Care Plan: A1C HPLC LOINC : 40396-8 Pending 09/26/2017 Visit Diagnosis Plan: Encounter for [facility] adult medical examination without abnormal findings Discussion: fasting blood work ordered t o be obtained at [facility] in the next few days [...] mammogram ordered to be comp leted at [facility]. breast exam performed in office. ICD-9 : V76.11 ICD-10 : Z12.31 09/22/2017 Appointment: Lisbeth [facility]ruger [address] [facility] [facility] Well Visit 09/22/2017 Patient Education: Patient [...] : J01.90 07/05/2017 Appointment: Lis[facility] Kruger [facility] [facility] 07/05/2017 Patient Education: Patient Medication [...] : J18.9 03/04/2017 Appointment: Lisbeth Kruger [address] [facility] FOLLOW UP 03/04/2017 Patient Education: Patient Medication [...] R74.8 02/02/2017 Appointment: Nirmala Jaramillo WPtel: [phone] [facility] FOLLOW UP 02/02/2017 Patient Education: Patient Medication Summary Completed 02/02/2017 Care Plan: Referral Order SNOMED-CT : 30 [id number] Pending 02/02/2017 Patient Education: Patient Medication Summary Completed 01/28/2017 Care Plan: ACUTE HEPATITIS PANEL LOINC : 46030-5 Pending 01/28/2017 Patient Education: Patient Medication Summary Completed 01/26/2017 Care Plan: COMPREHEN METABOLIC PAN[place] : 30839-2 Pending 01/26/2017 Care Plan: A1C HPLC LOINC : 08066-1 Pending 01/26/2017 Appointment: Nirmala Jaramillo WPtel: [address] [place], [place] [phone] [place] INJECTION 11/30/2016 Referral: Sav Goff[address] [place] [address] [address] Referral Initiated 11/30/2016 Patient Education: Patient [...] : S90.852A 11/29/2016 Appointment: Nirmala Jaramillo WPtel: [address] [place] [address] ACUTE ILLNESS 11/29/2016 Patient Education: Patient Medication [...] : Z83.49 11/16/2016 Appointment: Nirmala Jaramillo WPtel: [facility] [place] [phone] FOLLOW UP 11/16/2016 Patient Education: Patient Medication Summary Completed 11/16/2016 Care Plan: Referral Order SNOMED-CT : 30 6890952 Pending 11/16/2016 Appointment: Nirmala Jaramillo WPtel: [facility]0 [facility] [place] RESCHEDULED 11/08/2016 Visit Diagnosis Plan: Other hypertrophic disorders of the skin Discussion: Irritated skin tags excised at base and then bases cauterized ICD-9 : 701.9 ICD-10 : L91.8 10/05/2016 Appointment: Nirmala Jaramillo WPtel: [phone] [facility] [place] [phone] confirmed-sp OFFICE SURGERY 10/05/2016 Patient Education: Patient Medication Summary Completed 10/05/2016 Appointment: Nirmala Jaramillo WPtel: [facility]9 [facility] [place] Per doctor~ 09/09 canceled due to work ~ CANC ELED 09/10/2016 Visit Diagnosis Plan: Other seasonal allergic rhinitis Discussion: As above ICD-9 : 477.9 ICD-10 : J30.2 09/06/2016 Visit Diagnosis Plan: Cough Discussion: Continue zyrte c and singulair Add flonase If persists at fwup then will see ENT Follow Up: 2 months ICD-9 : 786.2 ICD-10 : R05 09/06/2016 Visit Diagnosis Plan: Abnormal levels of other serum e nzymes Discussion: Update liver enzymes ICD-9 : 790.5 ICD-10 : R74.8 09/06/2016 Appointment: Nirmala Jaramillo WPtel: [facility] [place] 7/6 lm~sl FOLLOW UP 09/06/2016 Patient Education: Patient Medication Summary Completed 09/06/2016 Patient Education: Patient Medication Summary Completed 08/18/2016 Care Plan: ACUTE HEPATITIS PANEL LOINC : 11988-8 Pending 08/18/2016 Care Plan: TICKBORNE DISEASE PANEL [...] : R05 08/16/2016 Appointment: Nirmala Jaramillo WPtel: [address] [place] [address] 08/13 confirmed `sl WORK IN 08/16/2016 Patient Education: Patient Medication Summary Completed 08/16/2016 Care Plan: MAMMOGRAM SCREENING Grandmother Juliane Sahu in late LOINC : 28541-7 Pending 08/16/2016 Patient Education: Patient Medication Summary Completed 07/27/2016 Visit Diagnosis Plan: Acute bronchitis, unspecified Di scussion: Rxs as above Borrow neb machine until home with hers if needed OTC meds reviewed Watch BSs closely Follow up if not improving ICD-9 : 466.0 ICD-10 : J20.9 06/23/2016 Appointment: Ananya Lopez [address] [place] [address] ACUTE ILLNESS 06/23/2016 Patient Education: Patient Medication Summary Completed 06/23/2016 Appointment: Nirmala Jaramillo WPtel: [address] [place], [place] [phone] [place] INJECTION 03/09/2016 Patient Education: Patient Medication Summary Completed 03/09/2016 Appointment: Nirmala Jaramillo WPtel: [address] [place], [place] [phone] [place] INJECTION 02/16/2016 Visit Plan: Decrease Breo to 100/25mcg 1 p BID for another week Flu shot with Prevnar 13 next week if covered Refill metformin 12/18/2015 Appointment: Nirmala Jaramillo WPtel: [address] [place], [place] [phone] 12/16 confirmed`sl FOLLOW UP 12/18/2015 Patient Education: [...] Recheck 1week 12/11/2015 Appointment: Nirmala Jaramillo WPtel: [address] [place], [place] [phone] ACUTE ILLNESS 12/11/2015 Patient Education: Patient Medication Summary Completed 12/11/2015 Visit Plan: Patient sounds and appears i mproved Continue mucinex, vit C, breathing treatments, humidifier, vicks, etc CXR on am and will call with report before the weekend Monitor for any return of concerning symptoms - fevers, chills, worsening cough, etc 12/08/2015 Appointment: Ananya Lopez [address] [place] [address] 12/04 Lm~sl....confirmed-sp FOLLOW UP 11/28 Patient Education: Patient Medication Summary Completed 12/08/2015 Visit Plan: Finish levaquin ordered by [employer] Add above meds has nebulizer machine she [...] continuing to improve 12/01/2015 Appointment: Ananya Lopez [address] [place], [place] [phone] 11/30 lm ~sl NEW PATIENT 12/01/2015 Patient Education: Patient Medication Summary Completed 12/01/2015 Referral: Dhruv Montalvo WPtel: [phone] [facility] E [id number] [place] Referral Appointment Requested Referral: Chan Chavez WPtel: [address] [facility] 6 [id number] [place] Referral Completed Referral: Dhruv Lubin WPtel: [address] [facility] 3 [id number] [place] Referral Initiated Instructions Comment . Saline [...] cough, etc . Finish levaquin ordered by [employer] Add above meds has nebulizer machine she [...]
--- OUTSIDE RECORDS SUMMARY | 2019-05-18 13:16 | XMS REPORT | CCD ---
Author Author Veronica Lopez Organization NIRMALA JARAMILLO DO [facility] Address [address] [place] [address] Phone Unavailable Care Team Providers Care Assistant Designer Name Role Phone Nirmala Jaramillo D.O., PP Unavailable CCM Unavailable Summary Purpose Interface Exchange Insurance Providers Payer name Policy type / Coverage type Covered alliance party ID Effective Begin Date Effective End Date [employer] Commercial Insurance [id number] Unknown Family History Family History data not found Social History Social History Element Codes Description Effective Dates Marital status Unknown 12/01/2015 Number of children Unknown 3 12/01/2015 Employment Unknown Currently employed 12/01/[address]: 373903137 Never smoker 12/01/[address]: 259127330 Never drinks alcohol 2015 Allergies, Adverse Reactions, [...] infection ICD-9: 465.9 ICD-10: J06.9 06/23/2016 Active Bursitis of right knee ICD-9: 726.60 [...] Start Date Stop Date Status Fill Instructions promethazine 6.25 mg-codeine 10 mg/5 mL syrup RxNorm: 462944 5 Milliliter(s) Oral Q4H as needed 03/26/2019 No Stop Date Active Trulicity 0.75 mg/0.5 mL subcutaneous pen injector RxNorm: 1 526070 INJECT 1 DOSE SUB-Q ONCE WEEKLY 02/19/2019 03/18/2019 Inactive amlodipine 5 mg tablet RxNorm: 703074 TAKE 1 TABLET BY MOUTH 02/19/2019 05/19/2019 Active Lexapro 20 mg tablet RxNorm: 952612 1 TABLET(S) PO QD 01/04/201905/2019 Active lisinopril 40 mg tablet RxNorm: 215363 1 TABLET(S) PO QD 12/05/2018 0 04/03/2019 Active scopolamine 1 mg over 3 days transdermal patch RxNorm: 42857 2 1 Application Transdermal Q72H 11/27/2018 11/26/2018 Inactive scopolamine 1 mg over 3 days transdermal patch RxNorm: 32214 2 1 Application Transdermal Q72H 11/27/2018 11/27/2018 Inactive ondansetron HCl 4 mg tablet RxNorm: 612537 1 Tablet(s) Oral Q4H as needed for nausea 11/27/2018 11/27/2018 Inactive ondansetron HCl 4 mg tablet RxNorm: 946062 1 Tablet(s) Oral Q4H as needed for nausea 11/27/2018 11/26/2018 Inactive amlodipine 5 mg tablet RxNorm: 075289 1 TABLET(S) PO QD 11/20/2018 Inactive Xanax 0.25 mg tablet RxNorm: 372023 1 Tablet(s) PO as needed 2018 No Stop Date Active ProAir HFA 90 mcg/actuation aerosol inhaler RxNorm: 037151 2 Puff(s) INH Q4H as needed 10/31/2018 No Stop Date Active if insurance das s not cover, please switch to [facility]. prednisone 20 mg tablet RxNorm: 259200 1 Tablet(s) PO BID 10/31/2018 11/04/2018 Inactive Zithromax Z-Ab 250 mg tablet RxNorm: 573148 Tablet(s) take as directed PO 10/31/2018 01/22/2019 Inactive Trulicity 0.75 mg/0.5 mL subcutaneous pen injector RxNorm: 1 991265 1 Unit Dose SQ QW 10/31/2018 02/18/2019 Inactive Ozempic 0.25 mg or 0.5 mg (2 mg/1.5 mL) subcutaneous p en injector RxNorm: 2464910 0.5 Milligram(s) SQ QW 10/09/2018 10/30/2018 Inactive Ozempic 0.25 mg or 0.5 mg (2 mg/1.5 mL) subcutaneous p en injector RxNorm: 4321754 0.5 Gram(s) SQ QW 10/05/2018 10/08/2018 Inactive lisinopril 40 mg tablet RxNorm: 992941 1 Tablet(s) PO QD 09/18/2018 1 Inactive metformin 1,000 mg tablet RxNorm: 352141 1 TABLET(S) PO QD 09/07/19 19 03/04/2019 Inactive Trulicity 0.75 mg/0.5 mL subcutaneous pen injector RxNorm: 1 742111 0.75 Milligram(s) SQ QW Replaces Ozemic 08/28/2018 10/30/2018 Inactive replaces Ozempic Ozempic 0.25 mg or 0.5 mg (2 mg/1.5 mL) subcutaneous p en injector RxNorm: 2182880 0.5 Milligram(s) SQ WEEKLY 08/28/2018 10/05/2018 Inactive metformin 1,000 mg tablet RxNorm: 161091 1 Tablet(s) PO QD 08/24/1909/05/2018 Inactive Ozempic 0.25 mg or 0.5 mg (2 mg/1.5 mL) subcutaneous p en injector RxNorm: 1345079 0.5 Milligram(s) SQ WEEKLY 08/03/2018 08/27/2018 Inactive amlodipine 5 mg tablet RxNorm: 482953 1 Tablet(s) PO QD 07/25/2018 Inactive Lexapro 20 mg tablet RxNorm: 905930 1 Tablet(s) PO QD 07/10/201807/2018 Inactive lisinopril 40 mg tablet RxNorm: 307956 1 Tablet(s) PO QD 07/10/2018 0 09/07/2018 Inactive amlodipine 5 mg tablet RxNorm: 510758 1 Tablet(s) PO QD 06/22/2018 Inactive lisinopril 40 mg tablet RxNorm: 752629 1 Tablet(s) PO QD 06/22/2018 0 07/09/2018 Inactive lisinopril 20 mg tablet RxNorm: 031247 1 Tablet(s) PO QD 06/19/2018 0 06/21/2018 Inactive lisinopril 5 mg tablet RxNorm: 426836 1 Tablet(s) PO QD 06/13/2018 Inactive metformin 1,000 mg tablet RxNorm: 023016 Tablet(s) TABLET(S) 1 TABLET(S) PO QD 06/08/2018 08/22/2018 Inactive Tamiflu 75 mg capsule RxNorm: 041460 1 Capsule(s) PO BID 04/26/2018 0 04/30/2018 Inactive Tamiflu 75 mg capsule RxNorm: 054354 1 Capsule(s) PO BID 04/26/2018 0 04/25/2018 Inactive prednisone 10 mg tablet RxNorm: 520371 1 Tablet(s) PO TID 04/25/2018 04/29/2018 Inactive prednisone 20 mg tablet RxNorm: 901861 1 Tablet(s) PO BID 04/14/2018 04/20/2018 Inactive Augmentin 500 mg-125 mg tablet RxNorm: 433215 1 Tablet(s) PO BID 04/20/2018 Inactive metformin 1,000 mg tablet RxNorm: 738016 TABLET(S) 1 TABLET(S) PO Q D 03/09/2018 06/06/2018 Inactive celecoxib 200 mg capsule RxNorm: 620001 1 Capsule(s) PO BID for diana n 01/31/2018 03/01/2018 Inactive metformin 1,000 mg tablet RxNorm: 711753 1 Tablet(s) PO BID 018 No Stop Date Active Medrol (Ab) 4 mg tablets in a dose pack RxNorm: 500102 Tablet(s) PO take as directed 01/23/2018 01/30/2018 Inactive Lexapro 20 mg tablet RxNorm: 689423 Tablet(s) 1 TABLET(S) PO QD 06/21/2018 Inactive Lexapro 20 mg tablet RxNorm: 404414 Tablet(s) 1 TABLET(S) PO QD 07/201701/22/2018 Inactive metformin 1,000 mg tablet RxNorm: 653726 1 Tablet(s) PO BID 018 01/22/2018 Inactive Lexapro 20 mg tablet RxNorm: 827849 Tablet(s) 1 TABLET(S) PO QD 11/02/2017 Inactive metformin 1,000 mg tablet RxNorm: 116836 Tablet(s) 1 TABLET(S) PO Q D 09/22/2017 09/26/2017 Inactive Xanax 0.25 mg tablet RxNorm: 006708 1 Tablet(s) PO as needed 201710/30/2018 Inactive metformin 1,000 mg tablet RxNorm: 001978 Tablet(s) 1 TA BLET(S) PO QD NEEDS UPDATED LABS 09/06/2017 09/20/2017 Inactive metformin 1,000 mg tablet RxNorm: 740889 1 TABLET(S) PO QD NEED S UPDATED LABS 08/24/2017 09/05/2017 Inactive metformin 1,000 mg tablet RxNorm: 738787 1 Tablet(s) PO QD Need s updated labs 08/08/2017 08/22/2017 Inactive Lexapro 20 mg tablet RxNorm: 566833 1 TABLET(S) PO QD 07/17/201708/29 Inactive pseudoephedrine 30 mg tablet RxNorm: 4641834 1-2 Tablet(s) PO Q6H 0 07/05/2017 06/12/2018 Inactive Augmentin 875 mg-125 mg tablet RxNorm: 020830 1 Tablet(s) PO BID 07/14/2017 Inactive metformin 1,000 mg tablet RxNorm: 272006 1 Tablet(s) PO QD Need s updated labs 07/04/2017 08/08/2017 Inactive metformin 1,000 mg tablet RxNorm: 602554 1 Tablet(s) PO QD Need s updated labs 05/30/2017 07/04/2017 Inactive Levaquin 750 mg tablet RxNorm: 835974 1 Tablet(s) PO QD 03/04/2017 Inactive ProAir HFA 90 mcg/actuation aerosol inhaler RxNorm: 444532 2 Puff(s) INH Q4H as needed 03/04/2017 07/04/2017 Inactive if insurance das s not cover, please switch to ventolin. Tamiflu 75 mg capsule RxNorm: 740896 1 Capsule(s) PO QD 03/04/2017 Inactive metformin 1,000 mg tablet RxNorm: 271214 1 Tablet(s) PO QD 02/16/20 17 05/15/2017 Inactive Lexapro 20 mg tablet RxNorm: 989699 1 Tablet(s) PO QD 01/17/201707/2017 Inactive cephalexin 500 mg capsule RxNorm: 434831 1 Capsule(s) PO TID 201612/08/2016 Inactive pantoprazole 40 mg tablet,delayed release RxNorm: 985022 1 Tabl et(s) PO QD 11/16/2016 03/15/2017 Inactive metformin 1,000 mg tablet RxNorm: 039757 TAKE 1 TABLET BY MOUTH EVERY DAY 10/10/2016 02/15/2017 Inactive Flonase Allergy Relief 50 mcg/actuation nasal spray,suspensi on RxNorm: 1995550 2 [employer] NASAL QHS 09/06/2016 11/15/2016 Inactive Singulair 10 mg tablet RxNorm: 059059 1 Tablet(s) PO QHS 09/06/2016 0 11/15/2016 Inactive Singulair 10 mg tablet RxNorm: 442488 1 Tablet(s) PO QHS 08/12/2016 0 09/05/2016 Inactive ProAir HFA 90 mcg/actuation aerosol inhaler RxNorm: 440672 1 Puff(s) INH Q4H as needed 08/12/2016 08/15/2016 Inactive Medrol (Ab) 4 mg tablets in a dose pack RxNorm: 982943 Tablet(s) PO As Directed 07/29/2016 08/15/2016 Inactive Lexapro 20 mg tablet RxNorm: 029963 1 Tablet(s) PO QD 07/06/201612/30 Inactive doxycycline hyclate 100 mg capsule RxNorm: 9495859 1 Capsule(s) PO BID 06/24/2016 06/23/2016 Inactive doxycycline hyclate 100 mg capsule RxNorm: 7935710 1 Capsule(s) PO BID 06/24/2016 07/03/2016 Inactive ProAir HFA 90 mcg/actuation aerosol inhaler RxNorm: 260008 1 Puff(s) INH Q4H as needed 06/23/2016 08/11/2016 Inactive prednisone 20 mg tablet RxNorm: 411402 1 Tablet(s) PO BID 06/23/2016 06/27/2016 Inactive metformin 1,000 mg tablet RxNorm: 890881 1 Tablet(s) PO QD 12/18/19 16 06/14/2016 Inactive Lexapro 20 mg tablet RxNorm: 801993 1 Tablet(s) PO QD 12/18/201510/2016 Inactive prednisone 20 mg tablet RxNorm: 550311 Take 3 tabs PO Q D x 3 days, then 2 tabs PO QD x 3 days, then 1 tab PO QD x 3 days 12/01/2015 12/10/2015 Inacti ve albuterol sulfate 2.5 mg/3 mL (0.083 %) solution for n ebulization RxNorm: 072476 3 Milliliter(s) INH Q4H as needed 12/01/2015 07/04/2017 Inactiv e Singulair 10 mg tablet RxNorm: 128527 1 Tablet(s) PO QHS No Start D ate 08/11/2016 Inactive Breo Ellipta 100 mcg-25 mcg/dose powder for inhalation RxNor m: 1621162 1 Puff(s) INH QD No Start Date 02/01/2017 Inactive Zyrtec 10 mg tablet RxNorm: 9657300 1 Tablet(s) PO QAM No Start Date 11/15/2016 Inactive Xanax 0.25 mg tablet RxNorm: 972068 1 Tablet(s) PO as needed No Sta rt Date 09/21/2017 Inactive metformin 1,000 mg tablet RxNorm: 907139 1 Tablet(s) PO QD No Start Date 12/17/2015 Inactive Singulair 10 mg tablet RxNorm: 396719 1 Tablet(s) PO QHS No Start D ate 11/15/2016 Inactive metformin 1,000 mg tablet RxNorm: 742529 1 Tablet(s) PO QD No Start Date 02/14/2017 Inactive metformin 1,000 mg tablet RxNorm: 623993 1 Tablet(s) PO BID No Star t Date 09/26/2017 Inactive Trulicity 0.75 mg/0.5 mL subcutaneous pen injector RxNorm: 1 258898 0.75 Milligram(s) SQ QW No Start Date 08/27/2018 Inactive Medrol (Ab) 4 mg tablets in a dose pack RxNorm: 348732 Tablet(s) PO As Directed No Start Date 07/28/2016 Inactive Lexapro 20 mg tablet RxNorm: 469742 1 Tablet(s) PO QD No Start Date 1 Inactive Lexapro 20 mg tablet RxNorm: 704785 1 Tablet(s) PO QD No Start Date 0 07/09/2018 Inactive Medication Administered No Medication Administered data Immunizations Vaccine Codes Date Status Tetanus, Diptheria, Pertussis CVX: 115 11/30/2016 Co mplete Pneumococcal CVX: 133 03/09/2016 Complete Results Observation Observation Code Item Item Code Result Date S vice Location VIRAL HEPATITIS PROFILE #2 35290 Hep A IgM Non-Reactive 06/20/2018 Unknown VIRAL HEPATITIS PROFILE #2 45307 Hep B Core IgM Non-Reac tive 06/20/2018 Unknown VIRAL HEPATITIS PROFILE #2 83693 Hepatitis C Ab Non-Reac tive 06/20/2018 Unknown VIRAL HEPATITIS PROFILE #2 31754 Hep Bs Ag Non-Reactive 06/20/2018 Unknown MEAN GLUC 4675167 Calc Mean Gluc 194 mg/dL 06/19/2018 Unkn own COMPREHENSIVE METABOLIC 32969 AST 94 U/L 2018 Unknown COMPREHENSIVE METABOLIC 42243 ALT 160 U/L 2018 Unknown COMPREHENSIVE METABOLIC 48075 BUN 9 mg/dL 2018 Unknown COMPREHENSIVE METABOLIC 09441 ALBUMIN 4.6 g/dL 2018 Unknown COMPREHENSIVE METABOLIC 33203 CHLORIDE 101 mmol/L 06/19 Unknown COMPREHENSIVE METABOLIC 02503 Bili Total 0.9 mg/dL 06/19 Unknown COMPREHENSIVE METABOLIC 59330 ALK PHOS 64 U/L 2018 Unknown COMPREHENSIVE METABOLIC 62270 SODIUM 136 mmol/L 06/19 Unknown COMPREHENSIVE METABOLIC 24487 CREATININE 0.58 mg/dL 05/30 Unknown COMPREHENSIVE METABOLIC 25738 CALCIUM 10.3 mg/dL 06/19 Unknown COMPREHENSIVE METABOLIC 68201 POTASSIUM 3.7 mmol/L 06/19 Unknown COMPREHENSIVE METABOLIC 59491 Total Protein 7.1 g/dL Unknown COMPREHENSIVE METABOLIC 14951 Glucose 187 mg/dL 2018 Unknown COMPREHENSIVE METABOLIC 22653 Bicarbonate 26 mmol/L 05/30 Unknown COMPREHENSIVE METABOLIC 68200 AGAP 9 mmol/L 2018 Unknown GLYCOSYLATED HEMOGLOBIN TEST 18190 Hgb A1c 40266-4 8.4 % 0 06/19/2018 Unknown COMPLETE BLOOD COUNT 7188823 WBC 6.2 10e9/L 06/20/19 19 Unknown COMPLETE BLOOD COUNT 3263902 RBC 4.70 10e12/L 2018 Unknown COMPLETE BLOOD COUNT 6162949 HEMOGLOBIN 13.4 g/dL 06/20/19 19 Unknown COMPLETE BLOOD COUNT 7318365 HEMATOCRIT 39.9 % 06/20/19 19 Unknown COMPLETE BLOOD COUNT 0471533 MCV 84.9 fL 9 Unknown COMPLETE BLOOD COUNT 1438502 MCH 28.5 pg 9 Unknown COMPLETE BLOOD COUNT 8517681 MCHC 33.6 g/dL 9 Unknown COMPLETE BLOOD COUNT 4914140 PLATELET COUNT 252 10e9/L Unknown COMPLETE BLOOD COUNT 3670700 Mean Plt Volume 12.2 fL Unknown COMPLETE BLOOD COUNT 0941627 Neut Auto 53.9 % 9 Unknown COMPLETE BLOOD COUNT 0449678 Lymph Auto 35.2 % 06/20/19 19 Unknown COMPLETE BLOOD COUNT 1619759 [facility] Auto 7.1 % 9 Unknown COMPLETE BLOOD COUNT 5028098 RDW 14.1 % 9 Unknown COMPLETE BLOOD COUNT 2154979 Eos Auto 3.2 % 9 Unknown COMPLETE BLOOD COUNT 3589511 Baso Auto 0.6 % 9 Unknown COMPLETE BLOOD COUNT 4274742 Neutrophil Abs 3.34 10e9/L Unknown COMPLETE BLOOD COUNT 0022574 Lymphocyte Abs 2.18 10e9/L Unknown COMPLETE BLOOD COUNT 6095386 Monocyte Abs 0.44 10e9/L 05/30 Unknown COMPLETE BLOOD COUNT 7026247 Eosinophil Abs 0.20 10e9/L Unknown COMPLETE BLOOD COUNT 4497361 RDW-SD 42.7 fL 9 Unknown COMPLETE BLOOD COUNT 8206608 Basophil Abs 0.04 10e9/L 05/30 Unknown THYROID STIMULATING HORMONE 08700 TSH 1.976 uIU/mL 06/19/2018 Unknown GFR CALC 6304140 GFR Non Afr Amr >60 mL/min 06/19/2018 Un known GFR CALC 7570627 GFR Afr Amr >60 mL/min 06/19/2018 Unknow n SURESWAB(R), BACTERIAL VAGINOSIS/VAGINITIS 16381 BV CATEGORY: TNP 09/27/2017 [facility] [address] [place] [address] SURESWAB(R), BACTERIAL VAGINOSIS/VAGINITIS 50959 LACTOBACILLUS S PECIES DNR 09/27/2017 [facility] [address] [place] [address] SURESWAB(R), BACTERIAL VAGINOSIS/VAGINITIS 57524 ATOPOBIUM VAGIN AE DNR 09/27/2017 [facility] [address] [place] [address] SURESWAB(R), BACTERIAL VAGINOSIS/VAGINITIS 91179 MEGASPHAERA SPE CIES DNR 09/27/2017 [facility] [address] [facility] [address] SURESWAB(R), BACTERIAL VAGINOSIS/VAGINITIS 86987 GARDNERELLA VAG INALIS DNR 09/27/2017 [facility] [address] [place] [address] SURESWAB(R), BACTERIAL VAGINOSIS/VAGINITIS 28500 SURESWAB(R) TRICHOMONAS VAGINALIS RNA, QL TMA TNP 09/27/2017 [facility] [address] [facility] [address] SURESWAB(R), BACTERIAL VAGINOSIS/VAGINITIS 87309 C. ALBICANS, DN A TNP 09/27/2017 [facility] [address] [facility] [address] SURESWAB(R), BACTERIAL VAGINOSIS/VAGINITIS 63971 C. GLABRATA, DN A DNR 09/27/2017 [facility] [address] [place] [address] SURESWAB(R), BACTERIAL VAGINOSIS/VAGINITIS 95189 C. TROPICALIS, DNA DNR 09/27/2017 [facility] [address] SURESWAB(R), BACTERIAL VAGINOSIS/VAGINITIS 29141 C. PARAPSILOSIS , DNA DNR 09/27/2017 [facility] [address] [place] [address] THINPREP TIS AND HPV mRNA E6/E7 18843 REPORT STATUS: DNR 09/27/2017 [facility] [address] [place] [address] THINPREP TIS AND HPV mRNA E6/E7 90279 CLINICAL INFORMATION: 09/27/2017 [facility] [address] [place] [address] THINPREP TIS AND HPV mRNA E6/E7 19794 LMP: 201709/27/[address] [place] [address] [address] THINPREP TIS AND HPV mRNA E6/E7 50771 PREV. PAP: 09/27/[address] [place] [address] [address] THINPREP TIS AND HPV mRNA E6/E7 55362 PREV. BX: 09/27/2017 [facility] [place] [address] THINPREP TIS AND HPV mRNA E6/E7 83958 SOURCE: Cerv ix 09/27/2017 [facility] [place] [address] THINPREP TIS AND HPV mRNA E6/E7 24100 STATEMENT OF ADEQUACY: 09/27/2017 [facility] [place] [address] THINPREP TIS AND HPV mRNA E6/E7 36448 GENERAL CATEGORIZATION: DNR 09/27/2017 [facility] [place] [address] THINPREP TIS AND HPV mRNA E6/E7 28682 INTERPRETATION/RESULT: 09/27/2017 [facility] [place] [address] THINPREP TIS AND HPV mRNA E6/E7 48502 INFECTION: DNR 09/27/2017 [facility] [place] [address] THINPREP TIS AND HPV mRNA E6/E7 49145 COMMENT: 09/27/2017 [facility] [place] [address] THINPREP TIS AND HPV mRNA E6/E7 92968 GUM MACHINE FILLER: 09/27/2017 [facility] [place] [address] THINPREP TIS AND HPV mRNA E6/E7 37753 REVIEW GUM MACHINE FILLER: DNR 09/27/2017 [facility] [place] [address] THINPREP TIS AND HPV mRNA E6/E7 19042 PATHOLOGIST: KHLOE Srivastava 09/27/2017 [facility] [address] [place] [address] THINPREP TIS AND HPV mRNA E6/E7 75421 COMMENT 09/27/2017 [facility] [address] [place] [address] THINPREP TIS AND HPV mRNA E6/E7 22896 HPV mRNA E6/E7 Not Detected 09/27/2017 [facility] [address] [place] [address] CULTURE, GENITAL 44879 CULTURE, GENITAL SEE NOTE [facility] [address] [address] [place] [address] CULTURE, THROAT 46292 CULTURE, THROAT SEE NOTE 07/30 [facility] [place] [address] Procedures Procedure Codes Date INFLUENZA ASSAY W/OPTIC CPT-4: 80503 03/26/2019 DEXAMETHASONE SODIUM PHOS CPT-4: J1100 03/26/2019 THER/PROPH/DIAG INJ SC/IM CPT-4: 01015 03/26/2019 TRIAMCINOLONE ACET INJ NOS CPT-4: J3301 03/26/2019 DRAIN/INJECT JOINT/BURSA CPT-4: 24481 01/23/2019 ROUTINE VENIPUNCTURE CPT-4: 96882 06/19/2018 COMPLETE CBC W/AUTO DIFF WBC CPT-4: 55283 06/19/2018 COMPREHEN METABOLIC PANEL CPT-4: 74197 06/19/2018 A1C HPLC CPT-4: 22851 06/19/2018 ASSAY THYROID STIM HORMONE CPT-4: 09830 06/19/2018 URINALYSIS NONAUTO W/O SCOPE CPT-4: 63787 06/19/2018 ACUTE HEPATITIS PANEL CPT-4: 05936 06/19/2018 INFLUENZA ASSAY W/OPTIC CPT-4: 23363 04/26/2018 STREP A ASSAY W/OPTIC CPT-4: 22842 04/25/2018 THROAT CULTURE CPT-4: 05570 04/25/2018 CEFTRIAXONE SODIUM INJECTION CPT-4: J0696 11/10/2017 DEXAMETHASONE SODIUM PHOS CPT-4: J1100 11/10/2017 THER/PROPH/DIAG INJ SC/IM CPT-4: 11367 11/10/2017 TRIAMCINOLONE ACET INJ NOS CPT-4: J3301 11/10/2017 OCCULT BLOOD FECES CPT-4: 21194 09/22/2017 SURESWAB(R), BACTERIAL VAGINOSIS/VAGINITIS CPT-4: 39462 09/22/2017 CULTURE, GENITAL CPT-4: 43605 09/22/2017 TDAP VACCINE 7 YRS/> IM CPT-4: 37345 11/30/2016 IMMUNIZATION ADMIN CPT-4: 71284 11/30/2016 REMOVAL OF FOOT FOREIGN BODY CPT-4: 49103 11/29/2016 REMOVAL OF SKIN TAGS <W/15 CPT-4: 25655 10/05/2016 CULTURE, THROAT CPT-4: 43716 08/16/2016 PNEUMOCOCCAL VACC 13 AYSHA IM CPT-4: 40097 03/09/2016 IMMUNIZATION ADMIN CPT-4: 71554 03/09/2016 THER/PROPH/DIAG INJ SC/IM CPT-4: 01938 12/11/2015 TRIAMCINOLONE ACET INJ NOS CPT-4: J3301 [...] 1: 126/84 Code: 8480-6 BMI: 39.9 Code: 65914-4 Heart Rate 1: 80 bpm Height: 5'2" [...] 1: 126/82 Code: 8480-6 BMI: 40.6 Code: 61606-1 Heart Rate 1: 72 bpm Height: 5'2" [...] 1: 124/68 Code: 8480-6 BMI: 41.7 Code: 49480-8 Heart Rate 1: 66 bpm Height: 5'2" Respiratory Rate: 20 bpm SpO2: 98% Tempera ture: 36.2 (C) / 97.2 (F) Weight: 228 lbs 09/22/2017 Blood Pressure 1: 142/80 Code: 8480-6 BMI: 41.3 Code: 63500-4 Heart Rate 1: 60 bpm Height: 5'2" Respiratory Rate: 20 bpm SpO2: 98% Tempera ture: 36.3 (C) / 97.3 (F) Weight: 226 lbs 07/05/2017 Blood Pressure 1: 129/82 Code: 8480-6 BMI: 42.3 Code: 86557-0 Heart Rate 1: 60 bpm Height: 5'2" SpO2: 97% Temperature: 36.4 (C) / 97.6 (F) Weight: 231 lbs 03/04/2017 Blood Pressure 1: 142/80 Code: 8480-6 BMI: 42.4 Code: 65769-3 Heart Rate 1: 74 bpm Height: 5'2" Respiratory Rate: 24 bpm SpO2: 97% Tempera ture: 36.4 (C) / 97.6 (F) Weight: 232 lbs 02/02/2017 Blood Pressure 1: 146/82 Code: 8480-6 BMI: 42.4 Code: 07326-5 Heart Rate 1: 84 bpm Height: 5'2" Respiratory Rate: 20 bpm SpO2: 98% Tempera ture: 36.6 (C) / 97.9 (F) Weight: 232 lbs 11/29/2016 Blood Pressure 1: 12678 Code: 8480-6 Heart Rate 1: 76 bpm Height: 5'2" Respiratory Rate: 20 bpm SpO2: 96% Temperature: 36 .9 (C) / 98.4 (F) 11/16/2016 Blood Pressure 1: 136/94 Code: 8480-6 BMI: 42.6 Code: 52196-9 Heart Rate 1: 68 bpm Height: 5'2" Respiratory Rate: 20 bpm SpO2: 96% Tempera ture: 36.9 (C) / 98.4 (F) Weight: 233 lbs 10/05/2016 Blood Pressure 1: 112/78 Code: 8480-6 BMI: 41.5 Code: 38520-8 Heart Rate 1: 80 bpm Height: 5'2" Respiratory Rate: 20 bpm SpO2: 97% Tempera ture: 36.8 (C) / 98.2 (F) Weight: 227 lbs 09/06/2016 Blood Pressure 1: 126/82 Code: 8480-6 BMI: 42.4 Code: 96271-8 Heart Rate 1: 64 bpm Height: 5'2" Respiratory Rate: 20 bpm SpO2: 98% Tempera ture: 37.0 (C) / 98.6 (F) Weight: 232 lbs 08/16/2016 Blood Pressure 1: 136/82 Code: 8480-6 BMI: 42.1 Code: 71949-0 Heart Rate 1: 72 bpm Height: 5'2" [...] 1: 144/80 Code: 8480-6 BMI: 40.4 Code: 99949-5 Heart Rate 1: 92 bpm Height: 5'2" Respiratory Rate: 20 bpm SpO2: 95% Tempera ture: 36.8 (C) / 98.2 (F) Weight: 221 lbs 12/08/2015 Blood Pressure 1: 124/78 Code: 8480-6 Heart Rate 1: 108 bpm Height: 5'2" Respiratory Rate: 22 bpm SpO2: 95% Temperature: 36.2 (C) / 97.2 (F) Weight: 12/01/2015 Blood Pressure 1: 124/78 Code: 8480-6 BMI: 40.4 Code: 18493-6 Heart Rate 1: 92 bpm Height: 5'2" [...] leg cough 11/10/2017 patient was seen at [facility] and given Levaquin and 5 day steroid [...] care Encounters Encounter Performer Location Codes Date ([id number]) OFFICE/OUTPATIENT VISIT EST Diagnosis: Upper respiratory infection[ICD10: J06.9] Lisbeth JARAMILLO [employer] [facility] CPT-4: 02354 03/26/2019 ([id number]) OFFICE/OUTPATIENT VISIT EST Diagnosis: Acute upper respiratory infection, unspecified[ICD10: J06.9] Diagnosis: Generalized anxiety disorder[ICD10: F41.1] Diagnosis: Type 2 diabetes mellitus with hyperglycemia[ICD10: E11.65] Diagnosis: Encounter for therapeutic drug level monitoring[ICD10: Z51.81] Lisbeth [facility] CPT-4: 97379 10/31/2018 ([id number]) OFFICE/OUTPATIENT VISIT EST Diagnosis: Type 2 diabetes mellitus with hyperglycemia[ICD10: E11.65] Diagnosis: Essential (primary) hypertension[ICD10: I10] Nirmala [facility] [employer] CPT-4: 92400 08/08/2018 ([id number]) OFFICE/OUTPATIENT VISIT EST Diagnosis: Essential (primary) hypertension[ICD10: I10] Diagnosis: Type 2 diabetes mellitus with hyperglycemia[ICD10: E11.65] Diagnosis: Other fatigue[ICD10: R53.83] Nirmaal JARAMILLO [facility] CPT-4: 70104 07/06/2018 ([id number]) OFFICE/OUTPATIENT VISIT EST Diagnosis: Dizziness and giddiness[ICD10: R42] Diagnosis: Elevated blood-pressure reading, without diagnosis of hypertension[ICD10: R03.0] Shell J[facility]AMILLO [facility] CPT- 4: 08646 06/19/2018 ([id number]) OFFICE/OUTPATIENT VISIT EST Diagnosis: Essential (primary) hypertension[ICD10: I10] Diagnosis: Dizziness and giddiness[ICD10: R42] Shell JARAMILLO [employer] CPT-4: 54937 06/13/2018 ([id number]) NURSE/OUTPATIENT VISIT EST Diagnosis: Influenza due to identified novel influenza A virus with other manifestations[ICD10: J09.X9] Nirmala J[facility]ILLO [facility] CPT-4: 64025 04/26/2018 OFFICE/OUTPATIENT VISIT EST Diagnosis: Pain in throat[ICD10: R07.0] Diagnosis: Acute pharyngitis, unspecified[ICD10: J02.9] Shell JARAMILLO [facility] CPT-4: 96701 04/25/2018 ([id number]) OFFICE/OUTPATIENT VISIT EST Diagnosis: Acute sinusitis, unspecified[ICD10: J01.90] Diagnosis: Paresthesia of skin[ICD10: R20.2] Nirmala ORNELASDAMON Yee Shantal JARAMILLO [facility] CPT-4: 69464 04/14/2018 ([id number]) OFFICE/OUTPATIENT VISIT EST Diagnosis: Pain in right leg[ICD10: M79.604] Diagnosis: Sciatica, right side[ICD10: M54.31] Nirmala JARAMILLO [employer] CPT-4: 37713 01/31/2018 ([id number]) OFFICE/OUTPATIENT VISIT EST Diagnosis: Pain in right leg[ICD10: M79.604] Lisbeth JARAMILLO [facility] CPT-4: 32886 01/23/2018 ([id number]) OFFICE/OUTPATIENT VISIT EST Diagnosis: Acute bronchitis, unspecified[ICD10: J20.9] Lisbeth JARAMILLO [facility] CPT-4: 66074 11/10/2017 ([id number]) PREV VISIT EST AGE 40-64 Diagnosis: Encounter [...] Diagnosis: Nonalcoholic steatohepatitis (MOORE)[ICD10: K75.81] Lisbeth JARAMILLO DO [facility] CPT-4: 62413 09/22/2017 ([id number]) OFFICE/OUTPATIENT VISIT EST Diagnosis: Acute sinusitis, unspecified[ICD10: J01.90] Lisbeth JARAMILLO DO [facility] CPT-4: 22419 07/05/2017 OFFICE/OUTPATIENT VISIT EST Diagnosis: Pneumonia, unspecified organism[ICD10: J18.9] Libseth JARAMILLO DO [facility] CPT-4: 61087 03/04/2017 ([id number]) OFFICE/OUTPATIENT VISIT EST Diagnosis: Polycystic ovarian syndrome[ICD10: E28.2] Diagnosis: Abnormal levels of other serum enzymes[ICD10: R74.8] Diagnosis: Nonalcoholic steatohepatitis (MOORE)[ICD10: K75.81] Diagnosis: Impaired glucose tolerance (oral)[ICD10: R73.02] Nirmala JARAMILLO DO [facility] CPT-4: 58079 02/02/2017 ([id number]) OFFICE/OUTPATIENT VISIT EST Diagnosis: VACCINE FOR TDAP[ICD10: Z23] Nirmala JARAMILLO DO [facility] CPT-4: 63240 11/30/2016 ([id number]) OFFICE/OUTPATIENT VISIT EST Diagnosis: Cough[ICD10: R05] Diagnosis: Abnormal levels of other serum enzymes[ICD10: R74.8] Diagnosis: Family history of other endocrine, nutritional and metabolic diseases[ICD10: Z83.49] Nirmala JARAMILLO DO [facility] CPT-4: 99293 11/16/2016 ([id number]) OFFICE/OUTPATIENT VISIT EST Diagnosis: Cough[ICD10: R05] Diagnosis: Other seasonal allergic rhinitis[ICD10: J30.2] Diagnosis: Abnormal levels of other serum enzymes[ICD10: R74.8] Nirmala JARAMILLO DO [facility] CPT-4: 12935 09/06/2016 ([id number]) OFFICE/OUTPATIENT VISIT EST Diagnosis: Cough[ICD10: R05] Diagnosis: Polycystic ovarian syndrome[ICD10: E28.2] Nirmala JARAMILLO DO [facility] CPT-4: 31766 08/16/2016 ([id number]) OFFICE/OUTPATIENT VISIT EST Diagnosis: Acute bronchitis, unspecified[ICD10: J20.9] Diagnosis: Acute upper respiratory infection, unspecified[ICD10: J06.9] Ananya John JARAMILLO [facility] CPT-4: 79764 06/23/2016 ([id number]) OFFICE/OUTPATIENT VISIT EST Diagnosis: PNEUMOCOCCAL VACCINE[ICD10: Z23] Nirmala JARAMILLO DO [facility] CPT-4: 47485 03/09/2016 ([id number]) OFFICE/OUTPATIENT VISIT EST Diagnosis: Pneumonia, unspecified organism[ICD10: J18.9] Diagnosis: Polycystic ovarian syndrome[ICD10: E28.2] Diagnosis: Generalized anxiety disorder[ICD10: F41.1] Nirmala JARAMILLO DO [facility] CPT-4: 49703 12/18/2015 ([id number]) OFFICE/OUTPATIENT VISIT EST Diagnosis: Cough[ICD10: R05] Diagnosis: Acute bronchospasm[ICD10: J98.01] Nirmala WHITINGWESLY JARAMILLO [employer] CPT-4: 05866 12/11/2015 ([id number]) OFFICE/OUTPATIENT VISIT EST Diagnosis: Pneumonia, unspecified organism[ICD10: J18.9] Ananya JARAMILLO DO [employer] CPT-4: 76481 12/08/2015 OFFICE/OUTPATIENT VISIT NEW Diagnosis: Pneumonia, unspecified organism[ICD10: J18.9] Ananya JARAMILLO [employer] CPT-4: 30110 12/01/2015 Plan of Care Planned Activity Notes Codes Status Date Visit Diagnosis Plan: Upper respiratory infection Disc ussion: influenza neg. kenalog/dexa 40/4 given in office due to severity of symptoms and patient's hx of pneumonia. instructed to call office tomorrow with worsening symptoms, otherwise push fluids and cough syrup prn. ICD-9 : 465.9 ICD-10 : J06.9 03/26/2019 Visit Diagnosis Plan: Tibial collateral bursitis of ri ght knee Discussion: Bursa injection as above PELON wrap/rest Notify in 1-2 weeks how knee is doing ICD-9 : 726.62 ICD-10 : M76.41 01/23/2019 Appointment: Nirmala Jaramillo WPtel: [phone] [facility] [place] [facility] 01/23/2019 Care Plan: Referral Order SNOMED-CT : 30 0221498 Pending 01/23/2019 Visit Diagnosis Plan: Type 2 [...] ICD-10 : F41.1 10/31/2018 Appointment: Lisbeth Kruger [address] [place], [place] [address] ACUTE ILLNESS 10/31/2018 Patient Education: Trulicity- OptimizeRX Coupon [id number] https://www.EMKinetics/sampleSocial & Loyal/resources/getResource/61/g659e2c6-v925-6y20-il Completed 10/31/2018 Patient Education: Xanax- OptimizeRX Coupon [id number] https://www.[employer]Kinetics/sampleSocial & Loyal/resources/getResource/61/oc35816y-3270-68c4-ee b2-310y563q2068.pdf Completed 10/31/2018 Patient Education: prednisone- OptimizeRX Coupon [phone] https://www.EMKinetics/sampleSocial [employer] Loyal/resources/getResource/61/677ax891-2144-49n7-80 Completed 10/31/2018 Patient Education: ProAir HFA- OptimizeRX Coupon 27248 600 https://www.EMKinetics/sampleSocial [employer] Loyal/resources/getResource/61/2mt36281-98h4-0583-51 Completed 10/31/2018 Visit Diagnosis Plan: Type 2 diabetes mellitus with hy perglycemia Discussion: Lab discussed Accuchecks daily Continue current meds Check CMP and HbA1C end of September then fwup ICD-9 : 250.02 ICD-10 : E11.65 08/08/2018 Visit Diagnosis Plan: Essential (primary) hypertension Discussion: Stable ICD-9 : 401.9 ICD-10 : I10 08/08/2018 Appointment: Nirmala Jaramillo WPtel: [phone] [facility] FOLLOW UP 08/08/2018 Visit Diagnosis Plan: Essential [...] : R53.83 07/06/2018 Appointment: Nirmala Jaramillo WPtel: [address] [place], [place] [phone] FOLLOW UP 07/06/2018 Appointment: Nirmala Jaramillo WPtel: [address] [place], [place] [phone] [place] Consult 06/22/2018 Patient Education: lisinopril- OptimizeRX Coupon [id number] https://www.Reveal.AirDroids/samplemd/resources/getResource/61/165n65y6-zxm6-9206-cf Completed 06/22/2018 Visit Diagnosis Plan: Essential (primary) hypertension Discussion: Increased lisinopril from 5 QD to 20 mg QD. Labs today- CBC, CMP, TSH, A1C. UA today- trace protein. hematuria (patient on period). 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 ICD-9 : 780.4 ICD-10 : R42 06/19/2018 Appointment: Shell Vega [address] [facility] FOLLOW UP 06/19/2018 Visit Diagnosis Plan: Essential [...] ICD-10 : R42 06/13/2018 Appointment: Shell Vega [address] [place] [address] ACUTE ILLNESS 06/13/2018 Appointment: Nirmala Jaramillo WPtel: [address] [place] [address] FLU SWAB 04/26/2018 Visit Diagnosis Plan: Pain in throat Discussion: Rapid Strep A- negative Throat culture- pending. Will call patient with results. Prednisone 10 mg TID x 5 days. Supportive care- fluids, tylenol for pain, humidified air. ICD-9 : 784.1 ICD-10 : R07.0 04/25/2018 Appointment: Shell Vega [address] [place] [address] ACUTE ILLNESS 04/25/2018 Visit Plan: Saline nasal [...] : J01.90 04/14/2018 Appointment: Nirmala Jaramillo WPtel: [address] [place] [address] ACUTE ILLNESS 04/14/2018 Patient Education: prednisone- OptimizeRX Coupon [phone] https://www.Reveal.AirDroids/[employer] Solutionsmd/resources/getResource/61/9bqg60dt-i6j4-82x2-c1 Completed 04/14/2018 Visit Diagnosis Plan: Pain in right leg Discussion: Ch dickson right tib/fib x-ray and start celebrex May need PT ICD-9 : 729.5 ICD-10 : M79.604 01/31/2018 Visit Diagnosis Plan: Sciatica, right side Discussion: Check L/S spine x-ray ICD-9 : 724.3 ICD-10 : M54.31 01/31/2018 Appointment: Nirmala Jaramillo WPtel: [phone] [id number] FOLLOW UP 01/31/2018 Care Plan: X-RAY EXAM L-S SPINE 2/3 VWS LOINC : 28523-3 Pending 01/31/2018 Care Plan: X-RAY EXAM OF LOWER LEG LOINC : 68302-8 Pending 01/31/2018 Visit Diagnosis Plan: Pain in [...] : M79.604 01/23/2018 Appointment: Lisbeth Kruger [address] [facility] ACUTE ILLNESS 01/23/2018 Visit Diagnosis Plan: Acute [...] : J20.9 11/10/2017 Appointment: [facility] [facility] 11/10/2017 Patient Education: Patient Medication Summary Completed 11/10/2017 Care Plan: CHEST X-RAY 2VW FRONTAL&LATL LOINC : 83372-7 Pending 11/10/2017 Patient Education: Patient Medication Summary Completed 09/26/2017 Care Plan: A1C HPLC LOINC : 06801-1 Pending 09/26/2017 Visit Diagnosis Plan: Encounter for gene ral adult medical examination without abnormal findings Discussion: fasting blood work ordered t o be obtained at [facility] in the next few days [...] mammogram ordered to be comp leted at [facility]. breast exam performed in office. ICD-9 : V76.11 ICD-10 : Z12.31 09/22/2017 Appointment: Lisbeth Kruger [address] Annual Well Visit 09/22/2017 Patient Education: [...] J01.90 07/05/2017 Appointment: Lisbeth Kruger [address] ACUTE ILLNESS 07/05/2017 Patient Education: Patient [...] : J18.9 03/04/2017 Appointment: Lisbeth Kruger [address] FOLLOW UP 03/04/2017 Patient Education: Patient [...] : R74.8 02/02/2017 Appointment: Nirmala Jaramillo WPtel: [address] [place] [address] FOLLOW UP 02/02/2017 Patient Education: Patient Medication Summary Completed 02/02/2017 Care Plan: Referral Order SNOMED-CT : 30 2264466 Pending 02/02/2017 Patient Education: Patient Medication Summary Completed 01/28/2017 Care Plan: ACUTE HEPATITIS PANEL LOINC : 73207-8 Pending 01/28/2017 Patient Education: Patient Medication Summary Completed 01/26/2017 Care Plan: COMPREHEN METABOLIC PANEL [place] : 13996-5 Pending 01/26/2017 Care Plan: A1C HPLC LOINC : 51398-4 Pending 01/26/2017 Appointment: Nirmala Jaramillo WPtel: [phone] [place] [address] [place] INJECTION 11/30/2016 Referral: Sav Goff[address] [place] [address] C&D [id number] Referral Initiated 11/30/2016 Patient Education: Patient Medication [...] : S90.852A 11/29/2016 Appointment: Nirmala Jaramillo WPtel: [address] [place], [place] [phone] ACUTE ILLNESS 11/29/2016 Patient Education: Patient [...] : Z83.49 11/16/2016 Appointment: Nirmala Jaramillo WPtel: [address] [place], [place] [phone] FOLLOW UP 11/16/2016 Patient Education: Patient Medication Summary Completed 11/16/2016 Care Plan: Referral Order SNOMED-CT : 30 2102073 Pending 11/16/2016 Appointment: Nirmala Jaramillo WPtel: [address] [place], [place] [phone] RESCHEDULED 11/08/2016 Visit Diagnosis Plan: Other hypertrophic disorders of the skin Discussion: Irritated skin tags excised at base and then bases cauterized ICD-9 : 701.9 ICD-10 : L91.8 10/05/2016 Appointment: Nirmala Jaramillo WPtel: [address] [place], [place] [phone] [id number] confirmed-sp OFFICE SURGERY 10/05/2016 Patient Education: Patient Medication Summary Completed 10/05/2016 Appointment: Nirmala Jaramillo WPtel: [phone] [facility] [place] Per doctor~ 09/09 canceled due to work ~ CANC ELED 09/10/2016 Visit Diagnosis Plan: Other seasonal allergic rhinitis Discussion: As above ICD-9 : 477.9 ICD-10 : J30.2 09/06/2016 Visit Diagnosis Plan: Cough Discussion: Continue zyrte c and singulair Add flonase If persists at [facility] then will see ENT Follow Up: 2 months ICD-9 : 786.2 ICD-10 : R05 09/06/2016 Visit Diagnosis Plan: Abnormal levels of other serum e nzymes Discussion: Update liver enzymes ICD-9 : 790.5 ICD-10 : R74.8 09/06/2016 Appointment: Nirmala Jaramillo WPtel: [facility] [place] 09/02 lm~ FOLLOW UP 09/06/2016 Patient Education: Patient Medication Summary Completed 09/06/2016 Patient Education: Patient Medication Summary Completed 08/18/2016 Care Plan: ACUTE HEPATITIS PANEL LOINC : 31617-3 Pending 08/18/2016 Care Plan: TICKBORNE DISEASE PANEL [...] R05 08/16/2016 Appointment: Nirmala Jaramillo WPtel: [phone] [facility] [place] 08/13 confirmed ` WORK IN 08/16/2016 Patient Education: Patient Medication Summary Completed 08/16/2016 Care Plan: MAMMOGRAM SCREENING Grandmother Juliane Sahu in late LOINC : 53191-8 Pending 08/16/2016 Patient Education: Patient Medication Summary Completed 07/27/2016 Visit Diagnosis Plan: Acute bronchitis, unspecified Di scussion: Rxs as above Borrow neb machine until home with hers if needed OTC meds reviewed Watch BSs closely Follow up if not improving ICD-9 : 466.0 ICD-10 : J20.9 06/23/2016 Appointment: John Ananya [address] [place] [address] ACUTE ILLNESS 06/23/2016 Patient Education: Patient Medication Summary Completed 06/23/2016 Appointment: Nirmala Jaramillo WPtel: [address] [place] [address] [place] INJECTION 03/09/2016 Patient Education: Patient Medication Summary Completed 03/09/2016 Appointment: Nirmala Jaramillo WPtel: [address] [place] [address] [place] INJECTION 02/16/2016 Visit Plan: Decrease Breo to 100/25mcg 1 p BID for another week Flu shot with Prevnar 13 next week if covered Refill metformin 12/18/2015 Appointment: Nirmala Jaramillo WPtel: [address] [place] [address] 12/16 confirmed`sl FOLLOW UP 12/18/2015 Patient Education: [...] 1week 12/11/2015 Appointment: Nirmala Jaramillo WPtel: [address] [place] [address] ACUTE ILLNESS 12/11/2015 Patient Education: Patient Medication Summary Completed 12/11/2015 Visit Plan: Patient sounds and appears i mproved Continue mucinex, vit C, breathing treatments, humidifier, vicks, etc CXR on am and will call with report before the weekend Monitor for any return of concerning symptoms - fevers, chills, worsening cough, etc 12/08/2015 Appointment: [facility] 12/04 Lm~sl....confirmed-sp FOLLOW UP 11/28 Patient Education: [...] to improve 12/01/2015 Appointment: Ananya Lopez [address] [facility] 11/30 lm ~sl NEW PATIENT 12/01/2015 Patient Education: Patient Medication Summary Completed 12/01/2015 Referral: Dhruv Montalvo WPtel: [phone] [facility] E [id number] [place] Referral Appointment Requested Referral: Chan Chavez WPtel: [address] [facility] 6 [id number] [place] Referral Completed Referral: Dhruv Lubin WPtel: 107 [facility] [address] Referral Initiated Instructions Comment . Saline [...]
--- OUTSIDE RECORDS SUMMARY | 2019-05-18 13:16 | XMS REPORT | CCD ---
Author Author Veronica Lopez Organization NIRMALA JARAMILLO DO [facility] Address [address] [place] [address] Phone Unavailable Care Team Providers Care Spike Machine Feeder Name Role Phone Nirmala Jaramillo D.O., PP Unavailable CCM Unavailable Summary Purpose Interface Exchange Insurance Providers Payer name Policy type / Coverage type Covered libertarian ID Effective Begin Date Effective End Date [employer]IG[employer] Commercial Insurance [id number] Unknown Family History Family History data not found Social History Social History Element Codes Description Effective Dates Marital status Unknown 12/01/2015 Number of children Unknown 3 12/01/2015 Employment Unknown Currently employed 12/01/[address]: 040288059 Never smoker 12/01/[address]: 836538176 Never drinks alcohol 2015 Allergies, Adverse Reactions, [...] 6.25 mg-codeine 10 mg/5 mL syrup RxNorm: 941996 5 Milliliter(s) Oral Q4H as needed 03/26/2019 No Stop Date Active Trulicity 0.75 mg/0.5 mL subcutaneous pen injector RxNorm: 1 978999 INJECT 1 DOSE SUB-Q ONCE WEEKLY 02/19/2019 03/18/2019 Inactive amlodipine 5 mg tablet RxNorm: 644522 TAKE 1 TABLET BY MOUTH 02/19/2019 05/19/2019 Active Lexapro 20 mg tablet RxNorm: 654968 1 TABLET(S) PO QD 01/04/201905/2019 Active lisinopril 40 mg tablet RxNorm: 537444 1 TABLET(S) PO QD 12/05/2018 0 04/03/2019 Active scopolamine 1 mg over 3 days transdermal patch RxNorm: 52419 2 1 Application Transdermal Q72H 11/27/2018 11/26/2018 Inactive scopolamine 1 mg over 3 days transdermal patch RxNorm: 82746 2 1 Application Transdermal Q72H 11/27/2018 11/27/2018 Inactive ondansetron HCl 4 mg tablet RxNorm: 239427 1 Tablet(s) Oral Q4H as needed for nausea 11/27/2018 11/27/2018 Inactive ondansetron HCl 4 mg tablet RxNorm: 004328 1 Tablet(s) Oral Q4H as needed for nausea 11/27/2018 11/26/2018 Inactive amlodipine 5 mg tablet RxNorm: 966353 1 TABLET(S) PO QD 11/20/2018 Inactive Xanax 0.25 mg tablet RxNorm: 813428 1 Tablet(s) PO as needed 2018 No Stop Date Active ProAir HFA 90 mcg/actuation aerosol inhaler RxNorm: 541514 2 Puff(s) INH Q4H as needed 10/31/2018 No Stop Date Active if insurance das s not cover, please switch to [facility]. prednisone 20 mg tablet RxNorm: 535956 1 Tablet(s) PO BID 10/31/2018 11/04/2018 Inactive Zithromax Z-Ab 250 mg tablet RxNorm: 414504 Tablet(s) take as directed PO 10/31/2018 01/22/2019 Inactive Trulicity 0.75 mg/0.5 mL subcutaneous pen injector RxNorm: 1 724222 1 Unit Dose SQ QW 10/31/2018 02/18/2019 Inactive Ozempic 0.25 mg or 0.5 mg (2 mg/1.5 mL) subcutaneous p en injector RxNorm: 7135191 0.5 Milligram(s) SQ QW 10/09/2018 10/30/2018 Inactive Ozempic 0.25 mg or 0.5 mg (2 mg/1.5 mL) subcutaneous p en injector RxNorm: 2229142 0.5 Gram(s) SQ QW 10/05/2018 10/08/2018 Inactive lisinopril 40 mg tablet RxNorm: 856155 1 Tablet(s) PO QD 09/18/2018 1 Inactive metformin 1,000 mg tablet RxNorm: 453029 1 TABLET(S) PO QD 09/07/19 19 03/04/2019 Inactive Trulicity 0.75 mg/0.5 mL subcutaneous pen injector RxNorm: 1 355696 0.75 Milligram(s) SQ QW Replaces Ozemic 08/28/2018 10/30/2018 Inactive replaces Ozempic Ozempic 0.25 mg or 0.5 mg (2 mg/1.5 mL) subcutaneous p en injector RxNorm: 2408649 0.5 Milligram(s) SQ WEEKLY 08/28/2018 10/05/2018 Inactive metformin 1,000 mg tablet RxNorm: 454205 1 Tablet(s) PO QD 08/24/19 19 09/05/2018 Inactive Ozempic 0.25 mg or 0.5 mg (2 mg/1.5 mL) subcutaneous p en injector RxNorm: 9721728 0.5 Milligram(s) SQ WEEKLY 08/03/2018 08/27/2018 Inactive amlodipine 5 mg tablet RxNorm: 988356 1 Tablet(s) PO QD 07/25/2018 Inactive Lexapro 20 mg tablet RxNorm: 493919 1 Tablet(s) PO QD 07/10/201807/2018 Inactive lisinopril 40 mg tablet RxNorm: 655382 1 Tablet(s) PO QD 07/10/2018 0 09/07/2018 Inactive amlodipine 5 mg tablet RxNorm: 896875 1 Tablet(s) PO QD 06/22/2018 Inactive lisinopril 40 mg tablet RxNorm: 680383 1 Tablet(s) PO QD 06/22/2018 0 07/09/2018 Inactive lisinopril 20 mg tablet RxNorm: 613258 1 Tablet(s) PO QD 06/19/2018 0 06/21/2018 Inactive lisinopril 5 mg tablet RxNorm: 742382 1 Tablet(s) PO QD 06/13/2018 Inactive metformin 1,000 mg tablet RxNorm: 896710 Tablet(s) TABLET(S) 1 TABLET(S) PO QD 06/08/2018 08/22/2018 Inactive Tamiflu 75 mg capsule RxNorm: 491738 1 Capsule(s) PO BID 04/26/2018 0 04/30/2018 Inactive Tamiflu 75 mg capsule RxNorm: 302685 1 Capsule(s) PO BID 04/26/2018 0 04/25/2018 Inactive prednisone 10 mg tablet RxNorm: 628832 1 Tablet(s) PO TID 04/25/2018 04/29/2018 Inactive prednisone 20 mg tablet RxNorm: 897347 1 Tablet(s) PO BID 04/14/2018 04/20/2018 Inactive Augmentin 500 mg-125 mg tablet RxNorm: 346082 1 Tablet(s) PO BID 04/20/2018 Inactive metformin 1,000 mg tablet RxNorm: 813226 TABLET(S) 1 TABLET(S) PO Q D 03/09/2018 06/06/2018 Inactive celecoxib 200 mg capsule RxNorm: 043935 1 Capsule(s) PO BID for diana n 01/31/2018 03/01/2018 Inactive metformin 1,000 mg tablet RxNorm: 791503 1 Tablet(s) PO BID 018 No Stop Date Active Medrol (Ab) 4 mg tablets in a dose pack RxNorm: 240381 Tablet(s) PO take as directed 01/23/2018 01/30/2018 Inactive Lexapro 20 mg tablet RxNorm: 949261 Tablet(s) 1 TABLET(S) PO QD 06/21/2018 Inactive Lexapro 20 mg tablet RxNorm: 694706 Tablet(s) 1 TABLET(S) PO QD 07/201701/22/2018 Inactive metformin 1,000 mg tablet RxNorm: 143956 1 Tablet(s) PO BID 018 01/22/2018 Inactive Lexapro 20 mg tablet RxNorm: 095634 Tablet(s) 1 TABLET(S) PO QD 11/02/2017 Inactive metformin 1,000 mg tablet RxNorm: 399292 Tablet(s) 1 TABLET(S) PO Q D 09/22/2017 09/26/2017 Inactive Xanax 0.25 mg tablet RxNorm: 039508 1 Tablet(s) PO as needed 201710/30/2018 Inactive metformin 1,000 mg tablet RxNorm: 679132 Tablet(s) 1 TA BLET(S) PO QD NEEDS UPDATED LABS 09/06/2017 09/20/2017 Inactive metformin 1,000 mg tablet RxNorm: 895334 1 TABLET(S) PO QD NEED S UPDATED LABS 08/24/2017 09/05/2017 Inactive metformin 1,000 mg tablet RxNorm: 699711 1 Tablet(s) PO QD Need s updated labs 08/08/2017 08/22/2017 Inactive Lexapro 20 mg tablet RxNorm: 289581 1 TABLET(S) PO QD 07/17/201708/29 Inactive pseudoephedrine 30 mg tablet RxNorm: 1502129 1-2 Tablet(s) PO Q6H 0 07/05/2017 06/12/2018 Inactive Augmentin 875 mg-125 mg tablet RxNorm: 418429 1 Tablet(s) PO BID 07/14/2017 Inactive metformin 1,000 mg tablet RxNorm: 340968 1 Tablet(s) PO QD Need s updated labs 07/04/2017 08/08/2017 Inactive metformin 1,000 mg tablet RxNorm: 495707 1 Tablet(s) PO QD Need s updated labs 05/30/2017 07/04/2017 Inactive Levaquin 750 mg tablet RxNorm: 326143 1 Tablet(s) PO QD 03/04/2017 Inactive ProAir HFA 90 mcg/actuation aerosol inhaler RxNorm: 618928 2 Puff(s) INH Q4H as needed 03/04/2017 07/04/2017 Inactive if insurance das s not cover, please switch to ventolin. Tamiflu 75 mg capsule RxNorm: 459841 1 Capsule(s) PO QD 03/04/2017 Inactive metformin 1,000 mg tablet RxNorm: 090395 1 Tablet(s) PO QD 02/16/20 17 05/15/2017 Inactive Lexapro 20 mg tablet RxNorm: 433134 1 Tablet(s) PO QD 01/17/201707/2017 Inactive cephalexin 500 mg capsule RxNorm: 417333 1 Capsule(s) PO TID 201612/08/2016 Inactive pantoprazole 40 mg tablet,delayed release RxNorm: 250490 1 Tabl et(s) PO QD 11/16/2016 03/15/2017 Inactive metformin 1,000 mg tablet RxNorm: 791997 TAKE 1 TABLET BY MOUTH EVERY DAY 10/10/2016 02/15/2017 Inactive Flonase Allergy Relief 50 mcg/actuation nasal spray,suspensi on RxNorm: 3897991 2 [place] NASAL QHS 09/06/2016 11/15/2016 Inactive Singulair 10 mg tablet RxNorm: 145048 1 Tablet(s) PO QHS 09/06/2016 0 11/15/2016 Inactive Singulair 10 mg tablet RxNorm: 102377 1 Tablet(s) PO QHS 08/12/2016 0 09/05/2016 Inactive ProAir HFA 90 mcg/actuation aerosol inhaler RxNorm: 806409 1 Puff(s) INH Q4H as needed 08/12/2016 08/15/2016 Inactive Medrol (Ab) 4 mg tablets in a dose pack RxNorm: 110249 Tablet(s) PO As Directed 07/29/2016 08/15/2016 Inactive Lexapro 20 mg tablet RxNorm: 092345 1 Tablet(s) PO QD 07/06/201612/30 Inactive doxycycline hyclate 100 mg capsule RxNorm: 5104447 1 Capsule(s) PO BID 06/24/2016 06/23/2016 Inactive doxycycline hyclate 100 mg capsule RxNorm: 5149146 1 Capsule(s) PO BID 06/24/2016 07/03/2016 Inactive ProAir HFA 90 mcg/actuation aerosol inhaler RxNorm: 021502 1 Puff(s) INH Q4H as needed 06/23/2016 08/11/2016 Inactive prednisone 20 mg tablet RxNorm: 234912 1 Tablet(s) PO BID 06/23/2016 06/27/2016 Inactive metformin 1,000 mg tablet RxNorm: 139346 1 Tablet(s) PO QD 12/18/19 16 06/14/2016 Inactive Lexapro 20 mg tablet RxNorm: 994954 1 Tablet(s) PO QD 12/18/2015 05/0 10/2016 Inactive prednisone 20 mg tablet RxNorm: 702914 Take 3 tabs PO Q D x 3 days, then 2 tabs PO QD x 3 days, then 1 tab PO QD x 3 days 12/01/2015 12/10/2015 Inacti ve albuterol sulfate 2.5 mg/3 mL (0.083 %) solution for n ebulization RxNorm: 707105 3 Milliliter(s) INH Q4H as needed 12/01/2015 07/04/2017 Inactiv e Singulair 10 mg tablet RxNorm: 036345 1 Tablet(s) PO QHS No Start D ate 08/11/2016 Inactive Breo Ellipta 100 mcg-25 mcg/dose powder for inhalation RxNor m: 4716625 1 Puff(s) INH QD No Start Date 02/01/2017 Inactive Zyrtec 10 mg tablet RxNorm: 4755383 1 Tablet(s) PO QAM No Start Date 11/15/2016 Inactive Xanax 0.25 mg tablet RxNorm: 636304 1 Tablet(s) PO as needed No Sta rt Date 09/21/2017 Inactive metformin 1,000 mg tablet RxNorm: 379973 1 Tablet(s) PO QD No Start Date 12/17/2015 Inactive Singulair 10 mg tablet RxNorm: 998277 1 Tablet(s) PO QHS No Start D ate 11/15/2016 Inactive metformin 1,000 mg tablet RxNorm: 571426 1 Tablet(s) PO QD No Start Date 02/14/2017 Inactive metformin 1,000 mg tablet RxNorm: 795138 1 Tablet(s) PO BID No Star t Date 09/26/2017 Inactive Trulicity 0.75 mg/0.5 mL subcutaneous pen injector RxNorm: 1 330833 0.75 Milligram(s) SQ QW No Start Date 08/27/2018 Inactive Medrol (Ab) 4 mg tablets in a dose pack RxNorm: 162082 Tablet(s) PO As Directed No Start Date 07/28/2016 Inactive Lexapro 20 mg tablet RxNorm: 026313 1 Tablet(s) PO QD No Start Date 1 Inactive Lexapro 20 mg tablet RxNorm: 600038 1 Tablet(s) PO QD No Start Date 0 07/09/2018 Inactive Medication Administered No Medication Administered data Immunizations Vaccine Codes Date Status Tetanus, Diptheria, Pertussis CVX: 115 11/30/2016 Co mplete Pneumococcal CVX: 133 03/09/2016 Complete Results Observation Observation Code Item Item Code Result Date S ervice Location VIRAL HEPATITIS PROFILE #2 06778 Hep A IgM Non-Reactive 06/20/2018 Unknown VIRAL HEPATITIS PROFILE #2 75758 Hep B Core IgM Non-Reac tive 06/20/2018 Unknown VIRAL HEPATITIS PROFILE #2 64838 Hepatitis C Ab Non-Reac tive 06/20/2018 Unknown VIRAL HEPATITIS PROFILE #2 73301 Hep Bs Ag Non-Reactive 06/20/2018 Unknown MEAN GLUC 3010571 Calc Mean Gluc 194 mg/dL 06/19/2018 Unkn own COMPREHENSIVE METABOLIC 95798 AST 94 U/L 2018 Unknown COMPREHENSIVE METABOLIC 03715 ALT 160 U/L 2018 Unknown COMPREHENSIVE METABOLIC 08621 BUN 9 mg/dL 2018 Unknown COMPREHENSIVE METABOLIC 78219 ALBUMIN 4.6 g/dL 2018 Unknown COMPREHENSIVE METABOLIC 69564 CHLORIDE 101 mmol/L 06/19 Unknown COMPREHENSIVE METABOLIC 67891 Bili Total 0.9 mg/dL 06/19 Unknown COMPREHENSIVE METABOLIC 01284 ALK PHOS 64 U/L 2018 Unknown COMPREHENSIVE METABOLIC 95417 SODIUM 136 mmol/L 06/19 Unknown COMPREHENSIVE METABOLIC 77592 CREATININE 0.58 mg/dL 05/30 Unknown COMPREHENSIVE METABOLIC 09482 CALCIUM 10.3 mg/dL 06/19 Unknown COMPREHENSIVE METABOLIC 36676 POTASSIUM 3.7 mmol/L 06/19 Unknown COMPREHENSIVE METABOLIC 87076 Total Protein 7.1 g/dL Unknown COMPREHENSIVE METABOLIC 39554 Glucose 187 mg/dL 2018 Unknown COMPREHENSIVE METABOLIC 58243 Bicarbonate 26 mmol/L 05/30 Unknown COMPREHENSIVE METABOLIC 20358 AGAP 9 mmol/L 2018 Unknown GLYCOSYLATED HEMOGLOBIN TEST 82670 Hgb A1c 90856-1 8.4 % 0 06/19/2018 Unknown COMPLETE BLOOD COUNT 0874697 WBC 6.2 10e9/L 06/20/19 19 Unknown COMPLETE BLOOD COUNT 0585208 RBC 4.70 10e12/L 2018 Unknown COMPLETE BLOOD COUNT 1732592 HEMOGLOBIN 13.4 g/dL 06/20/19 19 Unknown COMPLETE BLOOD COUNT 8484732 HEMATOCRIT 39.9 % 06/20/19 19 Unknown COMPLETE BLOOD COUNT 0564731 MCV 84.9 fL 9 Unknown COMPLETE BLOOD COUNT 1397818 MCH 28.5 pg 9 Unknown COMPLETE BLOOD COUNT 3785987 MCHC 33.6 g/dL 9 Unknown COMPLETE BLOOD COUNT 7420808 PLATELET COUNT 252 10e9/L Unknown COMPLETE BLOOD COUNT 6094926 Mean Plt Volume 12.2 fL Unknown COMPLETE BLOOD COUNT 0580072 Neut Auto 53.9 % 9 Unknown COMPLETE BLOOD COUNT 3635216 Lymph Auto 35.2 % 06/20/19 19 Unknown COMPLETE BLOOD COUNT 7072472 [place] Auto 7.1 % 9 Unknown COMPLETE BLOOD COUNT 5656528 RDW 14.1 % 9 Unknown COMPLETE BLOOD COUNT 2477102 Eos Auto 3.2 % 9 Unknown COMPLETE BLOOD COUNT 5746882 Baso Auto 0.6 % 9 Unknown COMPLETE BLOOD COUNT 8847200 Neutrophil Abs 3.34 10e9/L Unknown COMPLETE BLOOD COUNT 3488954 Lymphocyte Abs 2.18 10e9/L Unknown COMPLETE BLOOD COUNT 7027198 Monocyte Abs 0.44 10e9/L 05/30 Unknown COMPLETE BLOOD COUNT 3879799 Eosinophil Abs 0.20 10e9/L Unknown COMPLETE BLOOD COUNT 2656818 RDW-SD 42.7 fL 9 Unknown COMPLETE BLOOD COUNT 4489128 Basophil Abs 0.04 10e9/L 05/30 Unknown THYROID STIMULATING HORMONE 97641 TSH 1.976 uIU/mL 06/19/2018 Unknown GFR CALC 0686436 GFR Non Afr Amr >60 mL/min 06/19/2018 Un known GFR CALC 2453111 GFR Afr Amr >60 mL/min 06/19/2018 Unknow n SURESWAB(R), BACTERIAL VAGINOSIS/VAGINITIS 03036 BV CATEGORY: TNP 09/27/2017 [facility] [address] [place] [address] [address] SURESWAB(R), BACTERIAL VAGINOSIS/VAGINITIS 60606 LACTOBACILLUS S PECIES DNR 09/27/2017 [facility] [address] [place] [address],[place] [address] SURESWAB(R), BACTERIAL VAGINOSIS/VAGINITIS 86442 ATOPOBIUM VAGIN AE DNR 09/27/2017 [facility] [address] [place] [address],[place] [address] SURESWAB(R), BACTERIAL VAGINOSIS/VAGINITIS 19380 MEGASPHAERA SPE CIES DNR 09/27/2017 [facility],[place] [address] SURESWAB(R), BACTERIAL VAGINOSIS/VAGINITIS 67948 GARDNERELLA VAG INALIS DNR 09/27/2017 [facility],[place] [address] SURESWAB(R), BACTERIAL VAGINOSIS/VAGINITIS 03754 SURESWAB(R) TRICHOMONAS VAGINALIS RNA, QL TMA TNP 09/27/2017 [facility] [address] SURESWAB(R), BACTERIAL VAGINOSIS/VAGINITIS 31511 C. ALBICANS, DN A TNP 09/27/2017 [facility] [address] SURESWAB(R), BACTERIAL VAGINOSIS/VAGINITIS 20162 C. GLABRATA, DN A DNR 09/27/2017 [facility] [address] SURESWAB(R), BACTERIAL VAGINOSIS/VAGINITIS 33532 C. TROPICALIS, DNA DNR 09/27/2017 [facility] [address] SURESWAB(R), BACTERIAL VAGINOSIS/VAGINITIS 57650 C. PARAPSILOSIS , DNA DNR 09/27/2017 [facility] [address] THINPREP TIS AND HPV mRNA E6/E7 59926 REPORT STATUS: DNR 09/27/2017 [facility] [address] THINPREP TIS AND HPV mRNA E6/E7 21079 CLINICAL INFORMATION: 09/27/2017 [place] [address] [place] [address] [address] THINPREP TIS AND HPV mRNA E6/E7 93377 LMP: 201709/27/[address] [place] [address] [address] THINPREP TIS AND HPV mRNA E6/E7 14393 PREV. PAP: 09/27/[address] [place] [address] [address] THINPREP TIS AND HPV mRNA E6/E7 47634 PREV. BX: 09/27/[address] [place] [address] [address] THINPREP TIS AND HPV mRNA E6/E7 13649 SOURCE: Cerv ix 09/27/2017 [place] [address] THINPREP TIS AND HPV mRNA E6/E7 46137 STATEMENT OF ADEQUACY: 09/27/2017 [place] [address] THINPREP TIS AND HPV mRNA E6/E7 85659 GENERAL CATEGORIZATION: DNR 09/27/2017 [place] [address] THINPREP TIS AND HPV mRNA E6/E7 23735 INTERPRETATION/RESULT: 09/27/2017 [place] [address] THINPREP TIS AND HPV mRNA E6/E7 64777 INFECTION: DNR 09/27/2017 [place] [address] THINPREP TIS AND HPV mRNA E6/E7 03451 COMMENT: 09/27/2017 [place] [address] THINPREP TIS AND HPV mRNA E6/E7 50955 CEREAL MILLER: 09/27/2017 [place] [address] THINPREP TIS AND HPV mRNA E6/E7 74290 REVIEW CEREAL MILLER: DNR 09/27/2017 [place] [address] THINPREP TIS AND HPV mRNA E6/E7 75547 PATHOLOGIST: DN R 09/27/2017 [facility] [address] [place] [address] THINPREP TIS AND HPV mRNA E6/E7 20415 COMMENT 09/27/2017 [facility] [address] [place] [address] THINPREP TIS AND HPV mRNA E6/E7 39252 HPV mRNA E6/E7 Not Detected 09/27/2017 [facility] [address] [place] [address] CULTURE, GENITAL 54042 CULTURE, GENITAL SEE NOTE [facility] [address] [place] [address] CULTURE, THROAT 35997 CULTURE, THROAT SEE NOTE 07/30 [facility] [address] [place] [address] Procedures Procedure Codes Date INFLUENZA ASSAY W/OPTIC CPT-4: 21626 03/26/2019 DEXAMETHASONE SODIUM PHOS CPT-4: J1100 03/26/2019 THER/PROPH/DIAG INJ SC/IM CPT-4: 08764 03/26/2019 TRIAMCINOLONE ACET INJ NOS CPT-4: J3301 03/26/2019 DRAIN/INJECT JOINT/BURSA CPT-4: 55806 01/23/2019 ROUTINE VENIPUNCTURE CPT-4: 66760 06/19/2018 COMPLETE CBC W/AUTO DIFF WBC CPT-4: 51277 06/19/2018 COMPREHEN METABOLIC PANEL CPT-4: 05842 06/19/2018 A1C HPLC CPT-4: 87478 06/19/2018 ASSAY THYROID STIM HORMONE CPT-4: 26432 06/19/2018 URINALYSIS NONAUTO W/O SCOPE CPT-4: 53242 06/19/2018 ACUTE HEPATITIS PANEL CPT-4: 17863 06/19/2018 INFLUENZA ASSAY W/OPTIC CPT-4: 99941 04/26/2018 STREP A ASSAY W/OPTIC CPT-4: 69266 04/25/2018 THROAT CULTURE CPT-4: 41524 04/25/2018 CEFTRIAXONE SODIUM INJECTION CPT-4: J0696 11/10/2017 DEXAMETHASONE SODIUM PHOS CPT-4: J1100 11/10/2017 THER/PROPH/DIAG INJ SC/IM CPT-4: 75209 11/10/2017 TRIAMCINOLONE ACET INJ NOS CPT-4: J3301 11/10/2017 OCCULT BLOOD FECES CPT-4: 25821 09/22/2017 SURESWAB(R), BACTERIAL VAGINOSIS/VAGINITIS CPT-4: 35717 09/22/2017 CULTURE, GENITAL CPT-4: 90181 09/22/2017 TDAP VACCINE 7 YRS/> IM CPT-4: 25865 11/30/2016 IMMUNIZATION ADMIN CPT-4: 28835 11/30/2016 REMOVAL OF FOOT FOREIGN BODY CPT-4: 64506 11/29/2016 REMOVAL OF SKIN TAGS <W/15 CPT-4: 07581 10/05/2016 CULTURE, THROAT CPT-4: 01472 08/16/2016 PNEUMOCOCCAL VACC 13 AYSHA IM CPT-4: 37538 03/09/2016 IMMUNIZATION ADMIN CPT-4: 83244 03/09/2016 THER/PROPH/DIAG INJ SC/IM CPT-4: 89183 12/11/2015 TRIAMCINOLONE ACET INJ NOS CPT-4: J3301 [...] 1: 126/84 Code: 8480-6 BMI: 39.9 Code: 59834-2 Heart Rate 1: 80 bpm Height: 5'2" [...] 1: 126/82 Code: 8480-6 BMI: 40.6 Code: 23545-6 Heart Rate 1: 72 bpm Height: 5'2" [...] 1: 124/68 Code: 8480-6 BMI: 41.7 Code: 32605-9 Heart Rate 1: 66 bpm Height: 5'2" Respiratory Rate: 20 bpm SpO2: 98% Tempera ture: 36.2 (C) / 97.2 (F) Weight: 228 lbs 09/22/2017 Blood Pressure 1: 142/80 Code: 8480-6 BMI: 41.3 Code: 32771-0 Heart Rate 1: 60 bpm Height: 5'2" Respiratory Rate: 20 bpm SpO2: 98% Tempera ture: 36.3 (C) / 97.3 (F) Weight: 226 lbs 07/05/2017 Blood Pressure 1: 129/82 Code: 8480-6 BMI: 42.3 Code: 40833-8 Heart Rate 1: 60 bpm Height: 5'2" SpO2: 97% Temperature: 36.4 (C) / 97.6 (F) Weight: 231 lbs 03/04/2017 Blood Pressure 1: 142/80 Code: 8480-6 BMI: 42.4 Code: 25879-2 Heart Rate 1: 74 bpm Height: 5'2" Respiratory Rate: 24 bpm SpO2: 97% Tempera ture: 36.4 (C) / 97.6 (F) Weight: 232 lbs 02/02/2017 Blood Pressure 1: 146/82 Code: 8480-6 BMI: 42.4 Code: 48170-3 Heart Rate 1: 84 bpm Height: 5'2" Respiratory Rate: 20 bpm SpO2: 98% Tempera ture: 36.6 (C) / 97.9 (F) Weight: 232 lbs 11/29/2016 Blood Pressure 1: 126/78 Code: 8480-6 Heart Rate 1: 76 bpm Height: 5'2" Respiratory Rate: 20 bpm SpO2: 96% Temperature: 36 .9 (C) / 98.4 (F) 11/16/2016 Blood Pressure 1: 136/94 Code: 8480-6 BMI: 42.6 Code: 69724-6 Heart Rate 1: 68 bpm Height: 5'2" Respiratory Rate: 20 bpm SpO2: 96% Tempera ture: 36.9 (C) / 98.4 (F) Weight: 233 lbs 10/05/2016 Blood Pressure 1: 112/78 Code: 8480-6 BMI: 41.5 Code: 56239-5 Heart Rate 1: 80 bpm Height: 5'2" Respiratory Rate: 20 bpm SpO2: 97% Tempera ture: 36.8 (C) / 98.2 (F) Weight: 227 lbs 09/06/2016 Blood Pressure 1: 126/82 Code: 8480-6 BMI: 42.4 Code: 16022-2 Heart Rate 1: 64 bpm Height: 5'2" Respiratory Rate: 20 bpm SpO2: 98% Tempera ture: 37.0 (C) / 98.6 (F) Weight: 232 lbs 08/16/2016 Blood Pressure 1: 136/82 Code: 8480-6 BMI: 42.1 Code: 53644-0 Heart Rate 1: 72 bpm Height: 5'2" [...] 1: 144/80 Code: 8480-6 BMI: 40.4 Code: 30803-2 Heart Rate 1: 92 bpm Height: 5'2" Respiratory Rate: 20 bpm SpO2: 95% Tempera ture: 36.8 (C) / 98.2 (F) Weight: 221 lbs 12/08/2015 Blood Pressure 1: 124/78 Code: 8480-6 Heart Rate 1: 108 bpm Height: 5'2" Respiratory Rate: 22 bpm SpO2: 95% Temperature: 36.2 (C) / 97.2 (F) Weight: 12/01/2015 Blood Pressure 1: 124/78 Code: 8480-6 BMI: 40.4 Code: 36472-0 Heart Rate 1: 92 bpm Height: 5'2" [...] care Encounters Encounter Performer Location Codes Date (06321) OFFICE/OUTPATIENT VISIT EST Diagnosis: Upper respiratory infection[ICD10: J06.9] Diagnosis: Viral syndrome[ICD10: B34.9] Lisbeth JARAMILLO [facility] CPT-4: 92597 03/26/2019 ([id number]) OFFICE/OUTPATIENT VISIT EST Diagnosis: Acute upper respiratory infection, unspecified[ICD10: J06.9] Diagnosis: Generalized anxiety disorder[ICD10: F41.1] Diagnosis: Type 2 diabetes mellitus with hyperglycemia[ICD10: E11.65] Diagnosis: Encounter for therapeutic drug level monitoring[ICD10: Z51.81] Lisbeth JARAMILLO [facility] CPT-4: 44436 10/31/2018 ([id number]) OFFICE/OUTPATIENT VISIT EST Diagnosis: Type 2 diabetes mellitus with hyperglycemia[ICD10: E11.65] Diagnosis: Essential (primary) hypertension[ICD10: I10] Nirmala GIMENEZ Shantal JARAMILLO DO [facility] CPT-4: 75509 08/08/2018 ([id number]) OFFICE/OUTPATIENT VISIT EST Diagnosis: Essential (primary) hypertension[ICD10: I10] Diagnosis: Type 2 diabetes mellitus with hyperglycemia[ICD10: E11.65] Diagnosis: Other fatigue[ICD10: R53.83] Nirmala Dagoportia GIMENEZ Shantal JARAMILLO DO [facility] CPT-4: 44972 07/06/2018 ([id number]) OFFICE/OUTPATIENT VISIT EST Diagnosis: Dizziness and giddiness[ICD10: R42] Diagnosis: Elevated blood-pressure reading, without diagnosis of hypertension[ICD10: R03.0] Shell GIMENEZ Shantal JARAMILLO DO [facility] CPT- 4: 60161 06/19/2018 ([id number]) OFFICE/OUTPATIENT VISIT EST Diagnosis: Essential (primary) hypertension[ICD10: I10] Diagnosis: Dizziness and giddiness[ICD10: R42] Shell RUIZ Shantal JARAMILLO Estately [facility] CPT-4: 29260 06/13/2018 ([id number]) NURSE/OUTPATIENT VISIT EST Diagnosis: Influenza due to identified novel influenza A virus with other manifestations[ICD10: J09.X9] Nirmala Dagoportia NIRMALA Shantal JARAMILLO Est[facility] CPT-4: 24548 04/26/2018 OFFICE/OUTPATIENT VISIT EST Diagnosis: Pain in throat[ICD10: R07.0] Diagnosis: Acute pharyngitis, unspecified[ICD10: J02.9] Shell GIMENEZ JeremyZee ROSCOE Estately [facility] CPT-4: 03028 04/25/2018 ([id number]) OFFICE/OUTPATIENT VISIT EST Diagnosis: Acute sinusitis, unspecified[ICD10: J01.90] Diagnosis: Paresthesia of skin[ICD10: R20.2] Nirmala Yee Shantal JARAMILLO Est[facility] CPT-4: 61833 04/14/2018 ([id number]) OFFICE/OUTPATIENT VISIT EST Diagnosis: Pain in right leg[ICD10: M79.604] Diagnosis: Sciatica, right side[ICD10: M54.31] Nirmala RUIZ Shantal JARAMILLO Estately [facility] CPT-4: 51115 01/31/2018 ([id number]) OFFICE/OUTPATIENT VISIT EST Diagnosis: Pain in right leg[ICD10: M79.604] Lisbeth JARAMILLO DO [facility] CPT-4: 39468 01/23/2018 ([id number]) OFFICE/OUTPATIENT VISIT EST Diagnosis: Acute bronchitis, unspecified[ICD10: J20.9] Lisbeth JARAMILLO DO [facility] CPT-4: 02014 11/10/2017 ([id number]) PREV VISIT EST AGE 40-64 Diagnosis: Encounter [...] Diagnosis: Nonalcoholic steatohepatitis (MOORE)[ICD10: K75.81] Lisbeth JARAMILLO Estately [facility] CPT-4: 05532 09/22/2017 ([id number]) OFFICE/OUTPATIENT VISIT EST Diagnosis: Acute sinusitis, unspecified[ICD10: J01.90] Lisbeth JARAMILLO DO [facility] CPT-4: 45647 07/05/2017 OFFICE/OUTPATIENT VISIT EST Diagnosis: Pneumonia, unspecified organism[ICD10: J18.9] Lisbeth JARAMILLO DO [facility] CPT-4: 40015 03/04/2017 ([id number]) OFFICE/OUTPATIENT VISIT EST Diagnosis: Polycystic ovarian syndrome[ICD10: E28.2] Diagnosis: Abnormal levels of other serum enzymes[ICD10: R74.8] Diagnosis: Nonalcoholic steatohepatitis (MOORE)[ICD10: K75.81] Diagnosis: Impaired glucose tolerance (oral)[ICD10: R73.02] Nirmala JARAMILLO DO [facility] CPT-4: 23619 02/02/2017 ([id number]) OFFICE/OUTPATIENT VISIT EST Diagnosis: VACCINE FOR TDAP[ICD10: Z23] Nirmala JARAMILLO DO [facility] CPT-4: 80464 11/30/2016 ([id number]) OFFICE/OUTPATIENT VISIT EST Diagnosis: Cough[ICD10: R05] Diagnosis: Abnormal levels of other serum enzymes[ICD10: R74.8] Diagnosis: Family history of other endocrine, nutritional and metabolic diseases[ICD10: Z83.49] Nirmala JARAMILLO DO [facility] CPT-4: 38701 11/16/2016 ([id number]) OFFICE/OUTPATIENT VISIT EST Diagnosis: Cough[ICD10: R05] Diagnosis: Other seasonal allergic rhinitis[ICD10: J30.2] Diagnosis: Abnormal levels of other serum enzymes[ICD10: R74.8] Nirmala JARAMILLO DO [facility] CPT-4: 09744 09/06/2016 ([id number]) OFFICE/OUTPATIENT VISIT EST Diagnosis: Cough[ICD10: R05] Diagnosis: Polycystic ovarian syndrome[ICD10: E28.2] Nirmala JARAMILLO DO [facility] CPT-4: 95043 08/16/2016 ([id number]) OFFICE/OUTPATIENT VISIT EST Diagnosis: Acute bronchitis, unspecified[ICD10: J20.9] Diagnosis: Acute upper respiratory infection, unspecified[ICD10: J06.9] Ananya Lopez NIRMALA JARAMILLO DO [facility] CPT-4: 89701 06/23/2016 ([id number]) OFFICE/OUTPATIENT VISIT EST Diagnosis: PNEUMOCOCCAL VACCINE[ICD10: Z23] Nirmala JARAMILLO DO [facility] CPT-4: 49247 03/09/2016 ([id number]) OFFICE/OUTPATIENT VISIT EST Diagnosis: Pneumonia, unspecified organism[ICD10: J18.9] Diagnosis: Polycystic ovarian syndrome[ICD10: E28.2] Diagnosis: Generalized anxiety disorder[ICD10: F41.1] Nirmala JARAMILLO DO [facility] CPT-4: 10806 12/18/2015 ([id number]) OFFICE/OUTPATIENT VISIT EST Diagnosis: Cough[ICD10: R05] Diagnosis: Acute bronchospasm[ICD10: J98.01] Nirmala ORNELASDAMON JARAMILLO DO [facility] CPT-4: 68146 12/11/2015 ([id number]) OFFICE/OUTPATIENT VISIT EST Diagnosis: Pneumonia, unspecified organism[ICD10: J18.9] Ananya JARAMILLO DO [facility] CPT-4: 25161 12/08/2015 OFFICE/OUTPATIENT VISIT NEW Diagnosis: Pneumonia, unspecified organism[ICD10: J18.9] Ananya JARAMILLO DO [facility] CPT-4: 66355 12/01/2015 Plan of Care Planned Activity Notes [...] M76.41 01/23/2019 App[facility]ment[phone] [facility] [facility] 01/23/2019 Care Plan: Referral Order SNOMED-CT : 30 6687598 Pending 01/23/2019 Visit Diagnosis Plan: Type 2 [...] ICD-10 : F41.1 10/31/2018 Appointment: Lisbeth Kruger [address] [place], [place] [address] ACUTE ILLNESS 10/31/2018 Patient Education: Trulicity- [employer] Coupon [id number] https://www.[employer]/sampleDesert Biker Magazine/resources/getResource/61/f561v6o1-i262-3e50-px Completed 10/31/2018 Patient Education: Xanax- Optimize[employer] Coupon [id number] https://www.[employer]/sampleDesert [employer]/resources/getResource/61/yv40734m-5497-97j4-ky b2-956x827s5400.pdf Completed 10/31/2018 Patient Education: prednisone- OptimizeRX Coupon [phone] https://www.[employer]/Synter[employer]/resources/getResource/61/213iq158-1217-04f1-70 Completed 10/31/2018 Patient Education: ProAir HFA- OptimizeRX Coupon [phone] https://www.[employer]/resources/getResource/61/7yh57180-10r0-3035-98 Completed 10/31/2018 Visit Diagnosis Plan: Type 2 diabetes mellitus with hy perglycemia Discussion: Lab discussed Accuchecks daily Continue current meds Check CMP and HbA1C end of September then fwup ICD-9 : 250.02 ICD-10 : E11.65 08/08/2018 Visit Diagnosis Plan: Essential (primary) hypertension Discussion: Stable ICD-9 : 401.9 ICD-10 : I10 08/08/2018 Appointment: Nirmala Jaramillo WPtel: [address] [place], [place] [phone] [place] FOLLOW UP 08/08/2018 Visit Diagnosis Plan: [...] : R53.83 07/06/2018 Appointment: Nirmala Jaramillo WPtel: [address] [place], [place] [phone] [place] FOLLOW UP 07/06/2018 Appointment: Nirmala Jaramillo WPtel: [address] [place], [place] [phone] [place] Consult 06/22/2018 Patient Education: lisinopril- Optimize[employer] Coupon [id number] https://www.[employer]ter[employer].com/samplemd/resources/getResource/61/947y04o6-ixn5-5553-kj Completed 06/22/2018 Visit Diagnosis Plan: Essential (primary) hypertension Discussion: Increased lisinopril from 5 QD to 20 mg QD. Labs today- CBC, CMP, TSH, A1C. UA today- trace protein. hematuria (patient on period). ICD-9 : 401.9 ICD-10 : I10 06/19/2018 Visit Diagnosis Plan: Dizziness and giddiness Discussi on: Recommend scheduling appt with filer helper. ICD-9 : 780.4 ICD-10 : R42 06/19/2018 Appointment: Shell Vega [facility] [employer] [id number] [place] FOLLOW UP 06/19/2018 Visit Diagnosis Plan: Essential [...] ICD-10 : R42 06/13/2018 Appointment: Shell Vega [facility] Anika [address] ACUTE ILLNESS 06/13/2018 Appointment: Nirmala Jaramillo WPtel: [address] [place] [address] FLU SWAB 04/26/2018 Visit Diagnosis Plan: Pain in throat Discussion: Rapid Strep A- negative Throat culture- pending. Will call patient with results. Prednisone 10 mg TID x 5 days. Supportive care- fluids, tylenol for pain, humidified air. ICD-9 : 784.1 ICD-10 : R07.0 04/25/2018 Appointment: Shell Vega [address] [place], [place] [id number] ACUTE ILLNESS 04/25/2018 Visit Plan: Saline nasal [...] : J01.90 04/14/2018 Appointment: Nirmala Jaramillo WPtel: [address] [place] [address] ACUTE ILLNESS 04/14/2018 Patient Education: prednisone- OptimizeRX Coupon [phone] https://www.iCreate Software/samplemd/resources/getResource/61/1wwn73lw-l5e8-94f1-q9 Completed 04/14/2018 Visit Diagnosis Plan: Pain in right leg Discussion: Ch dickson right tib/fib x-ray and start celebrex May need PT ICD-9 : 729.5 ICD-10 : M79.604 01/31/2018 Visit Diagnosis Plan: Sciatica, right side Discussion: Check L/S spine x-ray ICD-9 : 724.3 ICD-10 : M54.31 01/31/2018 Appointment: Nirmala Jaramillo WPtel: [phone] [id number] FOLLOW UP 01/31/2018 Care Plan: X-RAY EXAM L-S SPINE 2/3 VWS LOINC : 17693-2 Pending 01/31/2018 Care Plan: X-RAY EXAM OF LOWER LEG LOINC : 39649-3 Pending 01/31/2018 Visit Diagnosis Plan: Pain in [...] : M79.604 01/23/2018 Appointment: Lisbeth Kruger [address] [facility] ACUTE ILLNESS 01/23/2018 Visit Diagnosis Plan: Acute [...] : J20.9 11/10/2017 Appointment: Lisbeth Kruger [address] [facility] ACUTE ILLNESS 11/10/2017 Patient Education: Patient Medication Summary Completed 11/10/2017 Care Plan: CHEST X-RAY 2VW FRONTAL&LATL LOINC : 78404-4 Pending 11/10/2017 Patient Education: Patient Medication Summary Completed 09/26/2017 Care Plan: A1C HPLC [facility] : 95615-1 Pending 09/26/2017 Visit Diagnosis Plan: Encounter for gene [facility] adult medical examination without abnormal findings Discussion: fasting blood work ordered t o be obtained at via [facility] in the next few days when [...] ordered to be comp leted at via [facility]. breast exam performed in office. ICD-9 : V76.11 ICD-10 : Z12.31 09/22/2017 Appointment: Lisbeth Kruger [facility] [employer] [address] Annual Well Visit 09/22/2017 Patient Education: [...] : J01.90 07/05/2017 Appointment: Lisbeth Kruger [address] ACUTE ILLNESS 07/05/2017 Patient Education: Patient Medication [...] ICD-10 : J18.9 03/04/2017 Appointment: Lisbeth Kruger [address] [place], [place] [id number] FOLLOW UP 03/04/2017 Patient Education: Patient Medication [...] : R74.8 02/02/2017 Appointment: Nirmala Jaramillo WPtel: [address] [place] [address] FOLLOW UP 02/02/2017 Patient Education: Patient Medication Summary Completed 02/02/2017 Care Plan: Referral Order SNOMED-CT : 30 2043924 Pending 02/02/2017 Patient Education: Patient Medication Summary Completed 01/28/2017 Care Plan: ACUTE HEPATITIS PANEL LOINC : 76076-7 Pending 01/28/2017 Patient Education: Patient Medication Summary Completed 01/26/2017 Care Plan: COMPREHEN METABOLIC PANEL [place] : 59773-5 Pending 01/26/2017 Care Plan: A1C HPLC LOINC : 65229-1 Pending 01/26/2017 Appointment: Nirmala Jaramillo WPtel: [facility] [place] [id number] [place] INJECTION 11/30/2016 Referral: Sav Goff[address] [place] [address] C&D [id number] Referral Initiated 11/30/2016 Patient Education: Patient Medication [...] : S90.852A 11/29/2016 Appointment: Nirmala Jaramillo WPtel: [address] [place], [place] [phone] ACUTE ILLNESS 11/29/2016 Patient Education: [...] : Z83.49 11/16/2016 Appointment: Nirmala Jaramillo WPtel: [address] [place], [place] [phone] [place] FOLLOW UP 11/16/2016 Patient Education: Patient Medication Summary Completed 11/16/2016 Care Plan: Referral Order SNOMED-CT : 30 0644159 Pending 11/16/2016 Appointment: Nirmala Jaramillo WPtel: [address] [place], [place] [phone] [place] RESCHEDULED 11/08/2016 Visit Diagnosis Plan: Other hypertrophic disorders of the skin Discussion: Irritated skin tags excised at base and then bases cauterized ICD-9 : 701.9 ICD-10 : L91.8 10/05/2016 Appointment: [facility]irm[facility]el[facility] [phone] [id number] confirmed-sp OFFICE SURGERY 10/05/2016 Patient Education: Patient Medication Summary Completed 10/05/2016 Appointment: Nirmala Jaramillo WPtel: [address] [place], [place] [address] [place] Per doctor~sl 09/09 canceled due to work ~sl CANC ELED 09/10/2016 Visit Diagnosis Plan: Other [...] : R74.8 09/06/2016 Appointment: Nirmala Jaramillo WPtel: [address] [place], [place] [address] [place] 7/6 lm~sl FOLLOW UP 09/06/2016 Patient Education: Patient Medication Summary Completed 09/06/2016 Patient Education: Patient Medication Summary Completed 08/18/2016 Care Plan: ACUTE HEPATITIS PANEL LOINC : 70365-7 Pending 08/18/2016 Care Plan: TICKBORNE DISEASE PANEL [...] : R05 08/16/2016 Appointment: Nirmala Jaramillo WPtel: [address] [place], [place] [address] [place] 16 confirmed `sl WORK IN 08/16/2016 Patient Education: Patient Medication Summary Completed 08/16/2016 Care Plan: MAMMOGRAM SCREENING Grandmother Br Ca in late LOINC : 60162-4 Pending 08/16/2016 Patient Education: Patient Medication Summary Completed 07/27/2016 Visit Diagnosis Plan: Acute bronchitis, unspecified Di scussion: Rxs as above Borrow neb machine until home with hers if needed OTC meds reviewed Watch BSs closely Follow up if not improving ICD-9 : 466.0 ICD-10 : J20.9 06/23/2016 Appointment: Ananya Lopez [address] [place] [address] ACUTE ILLNESS 06/23/2016 Patient Education: Patient Medication Summary Completed 06/23/2016 Appointment: Nirmala Jaramillo WPtel: [address] [place] [address] INJECTION 03/09/2016 Patient Education: Patient Medication Summary Completed 03/09/2016 Appointment: Nirmala Jaramillo WPtel: [address] [place] [address] INJECTION 02/16/2016 Visit Plan: Decrease Breo to 100/25mcg 1 p BID for another week Flu shot with Prevnar 13 next week if covered Refill metformin 12/18/2015 Appointment: Nirmala Jaramillo WPtel: [address] [place] [address] 12/16 confirmed`sl FOLLOW UP 12/18/2015 Patient Education: [...] Recheck 1week 12/11/2015 Appointment: Nirmala Jaramillo WPtel: [address] [place] [address] ACUTE ILLNESS 12/11/2015 Patient Education: Patient Medication Summary Completed 12/11/2015 Visit Plan: Patient sounds and appears i mproved Continue mucinex, vit C, breathing treatments, humidifier, vicks, etc CXR on am and will call with report before the weekend Monitor for any return of concerning symptoms - fevers, chills, worsening cough, etc 12/08/2015 Appointment: Ananya Lopez [address] [facility] 12/04 Lm~sl....confirmed-sp FOLLOW UP 11/28 Patient Education: Patient Medication Summary Completed 12/08/2015 Visit Plan: Finish levaquin ordered by [facility] Add above meds has nebulizer machine [...] continuing to improve 12/01/2015 [facility]ment[facility] 11/30 lm ~sl NEW PATIENT 12/01/2015 Patient Education: Patient Medication Summary Completed 12/01/2015 Referral: Dhruv Montalvo WPtel: [address] [facility] E [id number] [place] Referral Appointment Requested Referral: Chan Chavez WPtel: [address] [facility] 6 [id number] [place] Referral Completed Referral: Dhruv Lubin WPtel: [address] [facility] 3 [id number] [place] Referral Initiated Instructions Comment . Saline [...] cough, etc . Finish levaquin ordered by [facility] Add above meds has nebulizer machine she [...]
--- OUTSIDE RECORDS SUMMARY | 2019-05-18 13:17 | XMS REPORT | CCD ---
Author Author Veronica Lopez Organization [facility] Address [address] [place] [address] Phone Unavailable Care Team Providers Care Supervisor [employer] Name Role Phone Nirmala Jaramillo D.O., PP Unavailable CCM Unavailable Summary Purpose Interface Exchange Insurance Providers Payer name Policy type / Coverage type Covered alliance party ID Effective Begin Date Effective End Date [employer] Commercial Insurance [id number] Unknown Family History Family History data not found Social History Social History Element Codes Description Effective Dates Marital status Unknown 12/01/2015 Number of children Unknown 3 12/01/2015 Employment Unknown Currently employed 12/01/[address]: 354740500 Never smoker 12/01/[address]: 217079097 Never drinks alcohol 2015 Allergies, Adverse Reactions, [...] 6.25 mg-codeine 10 mg/5 mL syrup RxNorm: 617912 5 Milliliter(s) Oral Q4H as needed 03/26/2019 No Stop Date Active Trulicity 0.75 mg/0.5 mL subcutaneous pen injector RxNorm: 1 268303 INJECT 1 DOSE SUB-Q ONCE WEEKLY 02/19/2019 03/18/2019 Inactive amlodipine 5 mg tablet RxNorm: 400525 TAKE 1 TABLET BY MOUTH 02/19/2019 05/19/2019 Active Lexapro 20 mg tablet RxNorm: 928692 1 TABLET(S) PO QD 01/04/201905/2019 Active lisinopril 40 mg tablet RxNorm: 324722 1 TABLET(S) PO QD 12/05/2018 0 04/03/2019 Active scopolamine 1 mg over 3 days transdermal patch RxNorm: 57419 2 1 Application Transdermal Q72H 11/27/2018 11/26/2018 Inactive scopolamine 1 mg over 3 days transdermal patch RxNorm: 57996 2 1 Application Transdermal Q72H 11/27/2018 11/27/2018 Inactive ondansetron HCl 4 mg tablet RxNorm: 125886 1 Tablet(s) Oral Q4H as needed for nausea 11/27/2018 11/27/2018 Inactive ondansetron HCl 4 mg tablet RxNorm: 086903 1 Tablet(s) Oral Q4H as needed for nausea 11/27/2018 11/26/2018 Inactive amlodipine 5 mg tablet RxNorm: 849157 1 TABLET(S) PO QD 11/20/2018 Inactive Xanax 0.25 mg tablet RxNorm: 317718 1 Tablet(s) PO as needed 2018 No Stop Date Active ProAir HFA 90 mcg/actuation aerosol inhaler RxNorm: 275544 2 Puff(s) INH Q4H as needed 10/31/2018 No Stop Date Active if insurance das s not cover, please switch to [facility]. prednisone 20 mg tablet RxNorm: 631178 1 Tablet(s) PO BID 10/31/2018 11/04/2018 Inactive Zithromax Z-Ab 250 mg tablet RxNorm: 304177 Tablet(s) take as directed PO 10/31/2018 01/22/2019 Inactive Trulicity 0.75 mg/0.5 mL subcutaneous pen injector RxNorm: 1 668975 1 Unit Dose SQ QW 10/31/2018 02/18/2019 Inactive Ozempic 0.25 mg or 0.5 mg (2 mg/1.5 mL) subcutaneous p en injector RxNorm: 4950617 0.5 Milligram(s) SQ QW 10/09/2018 10/30/2018 Inactive Ozempic 0.25 mg or 0.5 mg (2 mg/1.5 mL) subcutaneous p en injector RxNorm: 2040399 0.5 Gram(s) SQ QW 10/05/2018 10/08/2018 Inactive lisinopril 40 mg tablet RxNorm: 771019 1 Tablet(s) PO QD 09/18/2018 1 Inactive metformin 1,000 mg tablet RxNorm: 869519 1 TABLET(S) PO QD 09/07/19 19 03/04/2019 Inactive Trulicity 0.75 mg/0.5 mL subcutaneous pen injector RxNorm: 1 562771 0.75 Milligram(s) SQ QW Replaces Ozemic 08/28/2018 10/30/2018 Inactive replaces Ozempic Ozempic 0.25 mg or 0.5 mg (2 mg/1.5 mL) subcutaneous p en injector RxNorm: 5208171 0.5 Milligram(s) SQ WEEKLY 08/28/2018 10/05/2018 Inactive metformin 1,000 mg tablet RxNorm: 869238 1 Tablet(s) PO QD 08/24/1909/05/2018 Inactive Ozempic 0.25 mg or 0.5 mg (2 mg/1.5 mL) subcutaneous p en injector RxNorm: 4806089 0.5 Milligram(s) SQ WEEKLY 08/03/2018 08/27/2018 Inactive amlodipine 5 mg tablet RxNorm: 819646 1 Tablet(s) PO QD 07/25/2018 Inactive Lexapro 20 mg tablet RxNorm: 587145 1 Tablet(s) PO QD 07/10/201807/2018 Inactive lisinopril 40 mg tablet RxNorm: 708549 1 Tablet(s) PO QD 07/10/2018 0 09/07/2018 Inactive amlodipine 5 mg tablet RxNorm: 495458 1 Tablet(s) PO QD 06/22/2018 Inactive lisinopril 40 mg tablet RxNorm: 885763 1 Tablet(s) PO QD 06/22/2018 0 07/09/2018 Inactive lisinopril 20 mg tablet RxNorm: 911549 1 Tablet(s) PO QD 06/19/2018 0 06/21/2018 Inactive lisinopril 5 mg tablet RxNorm: 662347 1 Tablet(s) PO QD 06/13/2018 Inactive metformin 1,000 mg tablet RxNorm: 426308 Tablet(s) TABLET(S) 1 TABLET(S) PO QD 06/08/2018 08/22/2018 Inactive Tamiflu 75 mg capsule RxNorm: 287061 1 Capsule(s) PO BID 04/26/2018 0 04/30/2018 Inactive Tamiflu 75 mg capsule RxNorm: 756776 1 Capsule(s) PO BID 04/26/2018 0 04/25/2018 Inactive prednisone 10 mg tablet RxNorm: 594522 1 Tablet(s) PO TID 04/25/2018 04/29/2018 Inactive prednisone 20 mg tablet RxNorm: 076493 1 Tablet(s) PO BID 04/14/2018 04/20/2018 Inactive Augmentin 500 mg-125 mg tablet RxNorm: 357747 1 Tablet(s) PO BID 04/20/2018 Inactive metformin 1,000 mg tablet RxNorm: 953060 TABLET(S) 1 TABLET(S) PO Q D 03/09/2018 06/06/2018 Inactive celecoxib 200 mg capsule RxNorm: 511672 1 Capsule(s) PO BID for diana n 01/31/2018 03/01/2018 Inactive metformin 1,000 mg tablet RxNorm: 745488 1 Tablet(s) PO BID 018 No Stop Date Active Medrol (Ab) 4 mg tablets in a dose pack RxNorm: 884801 Tablet(s) PO take as directed 01/23/2018 01/30/2018 Inactive Lexapro 20 mg tablet RxNorm: 276774 Tablet(s) 1 TABLET(S) PO QD 06/21/2018 Inactive Lexapro 20 mg tablet RxNorm: 706122 Tablet(s) 1 TABLET(S) PO QD 07/201701/22/2018 Inactive metformin 1,000 mg tablet RxNorm: 615074 1 Tablet(s) PO BID 018 01/22/2018 Inactive Lexapro 20 mg tablet RxNorm: 179995 Tablet(s) 1 TABLET(S) PO QD 11/02/2017 Inactive metformin 1,000 mg tablet RxNorm: 739150 Tablet(s) 1 TABLET(S) PO Q D 09/22/2017 09/26/2017 Inactive Xanax 0.25 mg tablet RxNorm: 839175 1 Tablet(s) PO as needed 201710/30/2018 Inactive metformin 1,000 mg tablet RxNorm: 289419 Tablet(s) 1 TA BLET(S) PO QD NEEDS UPDATED LABS 09/06/2017 09/20/2017 Inactive metformin 1,000 mg tablet RxNorm: 459517 1 TABLET(S) PO QD NEED S UPDATED LABS 08/24/2017 09/05/2017 Inactive metformin 1,000 mg tablet RxNorm: 499926 1 Tablet(s) PO QD Need s updated labs 08/08/2017 08/22/2017 Inactive Lexapro 20 mg tablet RxNorm: 171178 1 TABLET(S) PO QD 07/17/201708/29 Inactive pseudoephedrine 30 mg tablet RxNorm: 1283971 1-2 Tablet(s) PO Q6H 0 07/05/2017 06/12/2018 Inactive Augmentin 875 mg-125 mg tablet RxNorm: 494019 1 Tablet(s) PO BID 07/14/2017 Inactive metformin 1,000 mg tablet RxNorm: 826960 1 Tablet(s) PO QD Need s updated labs 07/04/2017 08/08/2017 Inactive metformin 1,000 mg tablet RxNorm: 784890 1 Tablet(s) PO QD Need s updated labs 05/30/2017 07/04/2017 Inactive Levaquin 750 mg tablet RxNorm: 641537 1 Tablet(s) PO QD 03/04/2017 Inactive ProAir HFA 90 mcg/actuation aerosol inhaler RxNorm: 821798 2 Puff(s) INH Q4H as needed 03/04/2017 07/04/2017 Inactive if insurance das s not cover, please switch to ventolin. Tamiflu 75 mg capsule RxNorm: 215799 1 Capsule(s) PO QD 03/04/2017 Inactive metformin 1,000 mg tablet RxNorm: 363401 1 Tablet(s) PO QD 02/16/20 17 05/15/2017 Inactive Lexapro 20 mg tablet RxNorm: 309420 1 Tablet(s) PO QD 01/17/201707/2017 Inactive cephalexin 500 mg capsule RxNorm: 317972 1 Capsule(s) PO TID 201612/08/2016 Inactive pantoprazole 40 mg tablet,delayed release RxNorm: 017538 1 Tabl et(s) PO QD 11/16/2016 03/15/2017 Inactive metformin 1,000 mg tablet RxNorm: 440309 TAKE 1 TABLET BY MOUTH EVERY DAY 10/10/2016 02/15/2017 Inactive Flonase Allergy Relief 50 mcg/actuation nasal spray,suspensi on RxNorm: 3251109 2 [place] NASAL QHS 09/06/2016 11/15/2016 Inactive Singulair 10 mg tablet RxNorm: 708452 1 Tablet(s) PO QHS 09/06/2016 0 11/15/2016 Inactive Singulair 10 mg tablet RxNorm: 049950 1 Tablet(s) PO QHS 08/12/2016 0 09/05/2016 Inactive ProAir HFA 90 mcg/actuation aerosol inhaler RxNorm: 218947 1 Puff(s) INH Q4H as needed 08/12/2016 08/15/2016 Inactive Medrol (Ab) 4 mg tablets in a dose pack RxNorm: 391287 Tablet(s) PO As Directed 07/29/2016 08/15/2016 Inactive Lexapro 20 mg tablet RxNorm: 939595 1 Tablet(s) PO QD 07/06/201612/30 Inactive doxycycline hyclate 100 mg capsule RxNorm: 0227147 1 Capsule(s) PO BID 06/24/2016 06/23/2016 Inactive doxycycline hyclate 100 mg capsule RxNorm: 8383197 1 Capsule(s) PO BID 06/24/2016 07/03/2016 Inactive ProAir HFA 90 mcg/actuation aerosol inhaler RxNorm: 617294 1 Puff(s) INH Q4H as needed 06/23/2016 08/11/2016 Inactive prednisone 20 mg tablet RxNorm: 374240 1 Tablet(s) PO BID 06/23/2016 06/27/2016 Inactive metformin 1,000 mg tablet RxNorm: 729208 1 Tablet(s) PO QD 12/18/19 16 06/14/2016 Inactive Lexapro 20 mg tablet RxNorm: 341843 1 Tablet(s) PO QD 12/18/201510/2016 Inactive prednisone 20 mg tablet RxNorm: 423078 Take 3 tabs PO Q D x 3 days, then 2 tabs PO QD x 3 days, then 1 tab PO QD x 3 days 12/01/2015 12/10/2015 Inacti ve albuterol sulfate 2.5 mg/3 mL (0.083 %) solution for n ebulization RxNorm: 647861 3 Milliliter(s) INH Q4H as needed 12/01/2015 07/04/2017 Inactiv e Singulair 10 mg tablet RxNorm: 901695 1 Tablet(s) PO QHS No Start D ate 08/11/2016 Inactive Breo Ellipta 100 mcg-25 mcg/dose powder for inhalation RxNor m: 2163988 1 Puff(s) INH QD No Start Date 02/01/2017 Inactive Zyrtec 10 mg tablet RxNorm: 3063283 1 Tablet(s) PO QAM No Start Date 11/15/2016 Inactive Xanax 0.25 mg tablet RxNorm: 083225 1 Tablet(s) PO as needed No Sta rt Date 09/21/2017 Inactive metformin 1,000 mg tablet RxNorm: 764746 1 Tablet(s) PO QD No Start Date 12/17/2015 Inactive Singulair 10 mg tablet RxNorm: 898609 1 Tablet(s) PO QHS No Start D ate 11/15/2016 Inactive metformin 1,000 mg tablet RxNorm: 413956 1 Tablet(s) PO QD No Start Date 02/14/2017 Inactive metformin 1,000 mg tablet RxNorm: 371656 1 Tablet(s) PO BID No Star t Date 09/26/2017 Inactive Trulicity 0.75 mg/0.5 mL subcutaneous pen injector RxNorm: 1 908914 0.75 Milligram(s) SQ QW No Start Date 08/27/2018 Inactive Medrol (Ab) 4 mg tablets in a dose pack RxNorm: 942377 Tablet(s) PO As Directed No Start Date 07/28/2016 Inactive Lexapro 20 mg tablet RxNorm: 547987 1 Tablet(s) PO QD No Start Date 1 Inactive Lexapro 20 mg tablet RxNorm: 068542 1 Tablet(s) PO QD No Start Date 0 07/09/2018 Inactive Medication Administered No Medication Administered data Immunizations Vaccine Codes Date Status Tetanus, Diptheria, Pertussis CVX: 115 11/30/2016 Co mplete Pneumococcal CVX: 133 03/09/2016 Complete Results Observation Observation Code Item Item Code Result Date S vice Location VIRAL HEPATITIS PROFILE #2 51019 Hep A IgM Non-Reactive 06/20/2018 Unknown VIRAL HEPATITIS PROFILE #2 40653 Hep B Core IgM Non-Reac tive 06/20/2018 Unknown VIRAL HEPATITIS PROFILE #2 52878 Hepatitis C Ab Non-Reac tive 06/20/2018 Unknown VIRAL HEPATITIS PROFILE #2 19616 Hep Bs Ag Non-Reactive 06/20/2018 Unknown MEAN GLUC 5389493 Calc Mean Gluc 194 mg/dL 06/19/2018 Unkn own COMPREHENSIVE METABOLIC 76481 AST 94 U/L 2018 Unknown COMPREHENSIVE METABOLIC 32317 ALT 160 U/L 2018 Unknown COMPREHENSIVE METABOLIC 80661 BUN 9 mg/dL 2018 Unknown COMPREHENSIVE METABOLIC 77243 ALBUMIN 4.6 g/dL 2018 Unknown COMPREHENSIVE METABOLIC 21221 CHLORIDE 101 mmol/L 06/19 Unknown COMPREHENSIVE METABOLIC 26811 Bili Total 0.9 mg/dL 06/19 Unknown COMPREHENSIVE METABOLIC 53061 ALK PHOS 64 U/L 2018 Unknown COMPREHENSIVE METABOLIC 24974 SODIUM 136 mmol/L 06/19 Unknown COMPREHENSIVE METABOLIC 67889 CREATININE 0.58 mg/dL 05/30 Unknown COMPREHENSIVE METABOLIC 61633 CALCIUM 10.3 mg/dL 06/19 Unknown COMPREHENSIVE METABOLIC 49813 POTASSIUM 3.7 mmol/L 06/19 Unknown COMPREHENSIVE METABOLIC 89452 Total Protein 7.1 g/dL Unknown COMPREHENSIVE METABOLIC 94661 Glucose 187 mg/dL 2018 Unknown COMPREHENSIVE METABOLIC 49821 Bicarbonate 26 mmol/L 05/30 Unknown COMPREHENSIVE METABOLIC 04955 AGAP 9 mmol/L 2018 Unknown GLYCOSYLATED HEMOGLOBIN TEST 64239 Hgb A1c 50193-7 8.4 % 0 06/19/2018 Unknown COMPLETE BLOOD COUNT 0743212 WBC 6.2 10e9/L 06/20/19 19 Unknown COMPLETE BLOOD COUNT 9366418 RBC 4.70 10e12/L 2018 Unknown COMPLETE BLOOD COUNT 5986779 HEMOGLOBIN 13.4 g/dL 06/20/19 19 Unknown COMPLETE BLOOD COUNT 9666441 HEMATOCRIT 39.9 % 06/20/19 19 Unknown COMPLETE BLOOD COUNT 2949097 MCV 84.9 fL 9 Unknown COMPLETE BLOOD COUNT 4735680 MCH 28.5 pg 9 Unknown COMPLETE BLOOD COUNT 2497167 MCHC 33.6 g/dL 9 Unknown COMPLETE BLOOD COUNT 2978469 PLATELET COUNT 252 10e9/L Unknown COMPLETE BLOOD COUNT 6871221 Mean Plt Volume 12.2 fL Unknown COMPLETE BLOOD COUNT 7941249 Neut Auto 53.9 % 9 Unknown COMPLETE BLOOD COUNT 3271897 Lymph Auto 35.2 % 06/20/19 19 Unknown COMPLETE BLOOD COUNT 0921987 Blair Auto 7.1 % 9 Unknown COMPLETE BLOOD COUNT 2523124 RDW 14.1 % 9 Unknown COMPLETE BLOOD COUNT 5930394 Eos Auto 3.2 % 9 Unknown COMPLETE BLOOD COUNT 7171829 Baso Auto 0.6 % 9 Unknown COMPLETE BLOOD COUNT 1693993 Neutrophil Abs 3.34 10e9/L Unknown COMPLETE BLOOD COUNT 3330644 Lymphocyte Abs 2.18 10e9/L Unknown COMPLETE BLOOD COUNT 0329650 Monocyte Abs 0.44 10e9/L 05/30 Unknown COMPLETE BLOOD COUNT 4697805 Eosinophil Abs 0.20 10e9/L Unknown COMPLETE BLOOD COUNT 0680495 RDW-SD 42.7 fL 9 Unknown COMPLETE BLOOD COUNT 3916340 Basophil Abs 0.04 10e9/L 05/30 Unknown THYROID STIMULATING HORMONE 13874 TSH 1.976 uIU/mL 06/19/2018 Unknown GFR CALC 4145428 GFR Non Afr Amr >60 mL/min 06/19/2018 Un known GFR CALC 2754334 GFR Afr Amr >60 mL/min 06/19/2018 Unknow n SURESWAB(R), BACTERIAL VAGINOSIS/VAGINITIS 75322 BV CATEGORY: TNP 09/27/2017 [facility] [address] [place] [address] SURESWAB(R), BACTERIAL VAGINOSIS/VAGINITIS 77697 LACTOBACILLUS S PECIES DNR 09/27/2017 [facility] [address] [place] [address] SURESWAB(R), BACTERIAL VAGINOSIS/VAGINITIS 59969 ATOPOBIUM VAGIN AE DNR 09/27/2017 [facility] [address] [place] [address] SURESWAB(R), BACTERIAL VAGINOSIS/VAGINITIS 72256 MEGASPHAERA SPE CIES DNR 09/27/2017 [facility] [address] [facility] [place] [address] SURESWAB(R), BACTERIAL VAGINOSIS/VAGINITIS 92218 GARDNERELLA VAG INALIS DNR 09/27/2017 [facility] [address] [place] [address] SURESWAB(R), BACTERIAL VAGINOSIS/VAGINITIS 79348 SURESWAB(R) TRICHOMONAS VAGINALIS RNA, QL TMA TNP 09/27/2017 [facility] [address] [facility] [place] [address] SURESWAB(R), BACTERIAL VAGINOSIS/VAGINITIS 34328 C. ALBICANS, DN A TNP 09/27/2017 [facility] [address] [facility] [place] [address] SURESWAB(R), BACTERIAL VAGINOSIS/VAGINITIS 10978 C. GLABRATA, DN A DNR 09/27/2017 [facility] [address] [place] [address] SURESWAB(R), BACTERIAL VAGINOSIS/VAGINITIS 06327 C. TROPICALIS, DNA DNR 09/27/2017 [facility] [address] SURESWAB(R), BACTERIAL VAGINOSIS/VAGINITIS 52703 C. PARAPSILOSIS , DNA DNR 09/27/2017 [facility] [address] [place] [address] THINPREP TIS AND HPV mRNA E6/E7 99347 REPORT STATUS: DNR 09/27/2017 [facility] [address] [place] [address] THINPREP TIS AND HPV mRNA E6/E7 57331 CLINICAL INFORMATION: 09/27/2017 [facility] [address] [address] THINPREP TIS AND HPV mRNA E6/E7 69086 LMP: 201709/27/[address] [place] [address] [address] THINPREP TIS AND HPV mRNA E6/E7 07631 PREV. PAP: 09/27/[address] [place] [address] [address] THINPREP TIS AND HPV mRNA E6/E7 78534 PREV. BX: 09/27/2017 [place] [address] THINPREP TIS AND HPV mRNA E6/E7 38823 SOURCE: Cerv ix 09/27/2017 [place] [place] [address] THINPREP TIS AND HPV mRNA E6/E7 22826 STATEMENT OF ADEQUACY: 09/27/2017 [facility] [place] [address] THINPREP TIS AND HPV mRNA E6/E7 80158 GENERAL CATEGORIZATION: DNR 09/27/2017 [place] [place] [address] THINPREP TIS AND HPV mRNA E6/E7 59462 INTERPRETATION/RESULT: 09/27/2017 [place] [place] [address] THINPREP TIS AND HPV mRNA E6/E7 66993 INFECTION: DNR 09/27/2017 [place] [place] [address] THINPREP TIS AND HPV mRNA E6/E7 98785 COMMENT: 09/27/2017 [place] [address] THINPREP TIS AND HPV mRNA E6/E7 79566 MANAGER OF LOSS PREVENTION OPERATIONS: 09/27/2017 [place] [address] THINPREP TIS AND HPV mRNA E6/E7 00210 REVIEW MANAGER OF LOSS PREVENTION OPERATIONS: DNR 09/27/2017 [place] [address] THINPREP TIS AND HPV mRNA E6/E7 01491 PATHOLOGIST: KHLOE Srivastava 09/27/2017 [facility] [address] [place] [address] THINPREP TIS AND HPV mRNA E6/E7 98863 COMMENT 09/27/2017 [facility] [address] [place] [address] THINPREP TIS AND HPV mRNA E6/E7 64282 HPV mRNA E6/E7 Not Detected 09/27/2017 [facility] [address] [place] [address] CULTURE, GENITAL 02341 CULTURE, GENITAL SEE NOTE [facility] [address] [place] [address] CULTURE, THROAT 08217 CULTURE, THROAT SEE NOTE 07/30 [facility] [place] [address] Procedures Procedure Codes Date INFLUENZA ASSAY W/OPTIC CPT-4: 40578 03/26/2019 DEXAMETHASONE SODIUM PHOS CPT-4: J1100 03/26/2019 THER/PROPH/DIAG INJ SC/IM CPT-4: 92826 03/26/2019 TRIAMCINOLONE ACET INJ NOS CPT-4: J3301 03/26/2019 DRAIN/INJECT JOINT/BURSA CPT-4: 87799 01/23/2019 ROUTINE VENIPUNCTURE CPT-4: 67472 06/19/2018 COMPLETE CBC W/AUTO DIFF WBC CPT-4: 71988 06/19/2018 COMPREHEN METABOLIC PANEL CPT-4: 13798 06/19/2018 A1C HPLC CPT-4: 21540 06/19/2018 ASSAY THYROID STIM HORMONE CPT-4: 78786 06/19/2018 URINALYSIS NONAUTO W/O SCOPE CPT-4: 69753 06/19/2018 ACUTE HEPATITIS PANEL CPT-4: 11048 06/19/2018 INFLUENZA ASSAY W/OPTIC CPT-4: 06106 04/26/2018 STREP A ASSAY W/OPTIC CPT-4: 77284 04/25/2018 THROAT CULTURE CPT-4: 22194 04/25/2018 CEFTRIAXONE SODIUM INJECTION CPT-4: J0696 11/10/2017 DEXAMETHASONE SODIUM PHOS CPT-4: J1100 11/10/2017 THER/PROPH/DIAG INJ SC/IM CPT-4: 81876 11/10/2017 TRIAMCINOLONE ACET INJ NOS CPT-4: J3301 11/10/2017 OCCULT BLOOD FECES CPT-4: 69341 09/22/2017 SURESWAB(R), BACTERIAL VAGINOSIS/VAGINITIS CPT-4: 77894 09/22/2017 CULTURE, GENITAL CPT-4: 48436 09/22/2017 TDAP VACCINE 7 YRS/> IM CPT-4: 13145 11/30/2016 IMMUNIZATION ADMIN CPT-4: 02293 11/30/2016 REMOVAL OF FOOT FOREIGN BODY CPT-4: 11706 11/29/2016 REMOVAL OF SKIN TAGS <W/15 CPT-4: 54827 10/05/2016 CULTURE, THROAT CPT-4: 60940 08/16/2016 PNEUMOCOCCAL VACC 13 AYSHA IM CPT-4: 54607 03/09/2016 IMMUNIZATION ADMIN CPT-4: 88925 03/09/2016 THER/PROPH/DIAG INJ SC/IM CPT-4: 74679 12/11/2015 TRIAMCINOLONE ACET INJ NOS CPT-4: J3301 [...] 1: 126/84 Code: 8480-6 BMI: 39.9 Code: 31947-9 Heart Rate 1: 80 bpm Height: 5'2" [...] 1: 126/82 Code: 8480-6 BMI: 40.6 Code: 07766-6 Heart Rate 1: 72 bpm Height: 5'2" [...] 1: 124/68 Code: 8480-6 BMI: 41.7 Code: 79391-4 Heart Rate 1: 66 bpm Height: 5'2" Respiratory Rate: 20 bpm SpO2: 98% Tempera ture: 36.2 (C) / 97.2 (F) Weight: 228 lbs 09/22/2017 Blood Pressure 1: 142/80 Code: 8480-6 BMI: 41.3 Code: 83748-0 Heart Rate 1: 60 bpm Height: 5'2" Respiratory Rate: 20 bpm SpO2: 98% Tempera ture: 36.3 (C) / 97.3 (F) Weight: 226 lbs 07/05/2017 Blood Pressure 1: 129/82 Code: 8480-6 BMI: 42.3 Code: 04417-8 Heart Rate 1: 60 bpm Height: 5'2" SpO2: 97% Temperature: 36.4 (C) / 97.6 (F) Weight: 231 lbs 03/04/2017 Blood Pressure 1: 142/80 Code: 8480-6 BMI: 42.4 Code: 55709-4 Heart Rate 1: 74 bpm Height: 5'2" Respiratory Rate: 24 bpm SpO2: 97% Tempera ture: 36.4 (C) / 97.6 (F) Weight: 232 lbs 02/02/2017 Blood Pressure 1: 146/82 Code: 8480-6 BMI: 42.4 Code: 80134-9 Heart Rate 1: 84 bpm Height: 5'2" Respiratory Rate: 20 bpm SpO2: 98% Tempera ture: 36.6 (C) / 97.9 (F) Weight: 232 lbs 11/29/2016 Blood Pressure 1: 12678 Code: 8480-6 Heart Rate 1: 76 bpm Height: 5'2" Respiratory Rate: 20 bpm SpO2: 96% Temperature: 36 .9 (C) / 98.4 (F) 11/16/2016 Blood Pressure 1: 136/94 Code: 8480-6 BMI: 42.6 Code: 44849-8 Heart Rate 1: 68 bpm Height: 5'2" Respiratory Rate: 20 bpm SpO2: 96% Tempera ture: 36.9 (C) / 98.4 (F) Weight: 233 lbs 10/05/2016 Blood Pressure 1: 112/78 Code: 8480-6 BMI: 41.5 Code: 67389-4 Heart Rate 1: 80 bpm Height: 5'2" Respiratory Rate: 20 bpm SpO2: 97% Tempera ture: 36.8 (C) / 98.2 (F) Weight: 227 lbs 09/06/2016 Blood Pressure 1: 126/82 Code: 8480-6 BMI: 42.4 Code: 37583-6 Heart Rate 1: 64 bpm Height: 5'2" Respiratory Rate: 20 bpm SpO2: 98% Tempera ture: 37.0 (C) / 98.6 (F) Weight: 232 lbs 08/16/2016 Blood Pressure 1: 136/82 Code: 8480-6 BMI: 42.1 Code: 55406-9 Heart Rate 1: 72 bpm Height: 5'2" [...] 1: 144/80 Code: 8480-6 BMI: 40.4 Code: 70883-2 Heart Rate 1: 92 bpm Height: 5'2" Respiratory Rate: 20 bpm SpO2: 95% Tempera ture: 36.8 (C) / 98.2 (F) Weight: 221 lbs 12/08/2015 Blood Pressure 1: 124/78 Code: 8480-6 Heart Rate 1: 108 bpm Height: 5'2" Respiratory Rate: 22 bpm SpO2: 95% Temperature: 36.2 (C) / 97.2 (F) Weight: 12/01/2015 Blood Pressure 1: 124/78 Code: 8480-6 BMI: 40.4 Code: 83358-2 Heart Rate 1: 92 bpm Height: 5'2" [...] 11/10/2017 patient was seen at [facility] and given Levaquin and 5 day [...] care Encounters Encounter Performer Location Codes Date ([id number]) OFFICE/OUTPATIENT VISIT EST Diagnosis: Upper respiratory infection[ICD10: J06.9] Lisbeth JARAMILLO [facility] CPT-4: 55578 03/26/2019 ([id number]) OFFICE/OUTPATIENT VISIT EST Diagnosis: Acute upper respiratory infection, unspecified[ICD10: J06.9] Diagnosis: Generalized anxiety disorder[ICD10: F41.1] Diagnosis: Type 2 diabetes mellitus with hyperglycemia[ICD10: E11.65] Diagnosis: Encounter for therapeutic drug level monitoring[ICD10: Z51.81] Lisbeth [facility] CPT-4: 21877 10/31/2018 ([id number]) OFFICE/OUTPATIENT VISIT EST Diagnosis: Type 2 diabetes mellitus with hyperglycemia[ICD10: E11.65] Diagnosis: Essential (primary) hypertension[ICD10: I10] Nirmala [facility]urguia [employer] CPT-4: 46165 08/08/2018 ([id number]) OFFICE/OUTPATIENT VISIT EST Diagnosis: Essential (primary) hypertension[ICD10: I10] Diagnosis: Type 2 diabetes mellitus with hyperglycemia[ICD10: E11.65] Diagnosis: Other fatigue[ICD10: R53.83] Nirmala JARAMILLO [facility] CPT-4: 54085 07/06/2018 ([id number]) OFFICE/OUTPATIENT VISIT EST Diagnosis: Dizziness and giddiness[ICD10: R42] Diagnosis: Elevated blood-pressure reading, without diagnosis of hypertension[ICD10: R03.0] Shell JARAMILLO [facility] CPT- 4: 44924 06/19/2018 ([id number]) OFFICE/OUTPATIENT VISIT EST Diagnosis: Essential (primary) hypertension[ICD10: I10] Diagnosis: Dizziness and giddiness[ICD10: R42] Shell JARAMILLO [facility] CPT-4: 89477 06/13/2018 ([id number]) NURSE/OUTPATIENT VISIT EST Diagnosis: Influenza due to identified novel influenza A virus with other manifestations[ICD10: J09.X9] Nirmala JARAMILLO [facility] CPT-4: 76668 04/26/2018 OFFICE/OUTPATIENT VISIT EST Diagnosis: Pain in throat[ICD10: R07.0] Diagnosis: Acute pharyngitis, unspecified[ICD10: J02.9] Shell JARAMILLO [facility] CPT-4: 52069 04/25/2018 ([id number]) OFFICE/OUTPATIENT VISIT EST Diagnosis: Acute sinusitis, unspecified[ICD10: J01.90] Diagnosis: Paresthesia of skin[ICD10: R20.2] Nirmala ORNELASDAMON Yee Shantal JARAMILLO [facility] CPT-4: 86544 04/14/2018 ([id number]) OFFICE/OUTPATIENT VISIT EST Diagnosis: Pain in right leg[ICD10: M79.604] Diagnosis: Sciatica, right side[ICD10: M54.31] Nirmala JARAMILLO [facility] CPT-4: 94207 01/31/2018 ([id number]) OFFICE/OUTPATIENT VISIT EST Diagnosis: Pain in right leg[ICD10: M79.604] Lisbeth JARAMILLO DO [facility] CPT-4: 15954 01/23/2018 ([id number]) OFFICE/OUTPATIENT VISIT EST Diagnosis: Acute bronchitis, unspecified[ICD10: J20.9] Lisbeth JARAMILLO DO [facility] CPT-4: 45174 11/10/2017 ([id number]) PREV VISIT EST AGE 40-64 Diagnosis: Encounter [...] Nonalcoholic steatohepatitis (MOORE)[ICD10: K75.81] Lisbeth JARAMILLO DO [facility] CPT-4: 98513 09/22/2017 ([id number]) OFFICE/OUTPATIENT VISIT EST Diagnosis: Acute sinusitis, unspecified[ICD10: J01.90] Lisbeth JARAMILLO DO [facility] CPT-4: 93204 07/05/2017 OFFICE/OUTPATIENT VISIT EST Diagnosis: Pneumonia, unspecified organism[ICD10: J18.9] Lisbeth JARAMILLO DO [facility] CPT-4: 74190 03/04/2017 ([id number]) OFFICE/OUTPATIENT VISIT EST Diagnosis: Polycystic ovarian syndrome[ICD10: E28.2] Diagnosis: Abnormal levels of other serum enzymes[ICD10: R74.8] Diagnosis: Nonalcoholic steatohepatitis (MOORE)[ICD10: K75.81] Diagnosis: Impaired glucose tolerance (oral)[ICD10: R73.02] Nirmala JARAMILLO DO [facility] CPT-4: 42933 02/02/2017 ([id number]) OFFICE/OUTPATIENT VISIT EST Diagnosis: VACCINE FOR TDAP[ICD10: Z23] Nirmala JARAMILLO DO [facility] CPT-4: 71667 11/30/2016 ([id number]) OFFICE/OUTPATIENT VISIT EST Diagnosis: Cough[ICD10: R05] Diagnosis: Abnormal levels of other serum enzymes[ICD10: R74.8] Diagnosis: Family history of other endocrine, nutritional and metabolic diseases[ICD10: Z83.49] Nirmala JARAMILLO DO [facility] CPT-4: 10916 11/16/2016 ([id number]) OFFICE/OUTPATIENT VISIT EST Diagnosis: Cough[ICD10: R05] Diagnosis: Other seasonal allergic rhinitis[ICD10: J30.2] Diagnosis: Abnormal levels of other serum enzymes[ICD10: R74.8] Nirmala JARAMILLO DO [facility] CPT-4: 95691 09/06/2016 ([id number]) OFFICE/OUTPATIENT VISIT EST Diagnosis: Cough[ICD10: R05] Diagnosis: Polycystic ovarian syndrome[ICD10: E28.2] Nirmala JARAMILLO DO [facility] CPT-4: 34339 08/16/2016 ([id number]) OFFICE/OUTPATIENT VISIT EST Diagnosis: Acute bronchitis, unspecified[ICD10: J20.9] Diagnosis: Acute upper respiratory infection, unspecified[ICD10: J06.9] Anayna John JARAMILLO [facility] CPT-4: 01993 06/23/2016 ([id number]) OFFICE/OUTPATIENT VISIT EST Diagnosis: PNEUMOCOCCAL VACCINE[ICD10: Z23] Nirmala JARAMILLO DO [facility] CPT-4: 28727 03/09/2016 ([id number]) OFFICE/OUTPATIENT VISIT EST Diagnosis: Pneumonia, unspecified organism[ICD10: J18.9] Diagnosis: Polycystic ovarian syndrome[ICD10: E28.2] Diagnosis: Generalized anxiety disorder[ICD10: F41.1] Nirmala JARAMILLO DO [facility] CPT-4: 72715 12/18/2015 ([id number]) OFFICE/OUTPATIENT VISIT EST Diagnosis: Cough[ICD10: R05] Diagnosis: Acute bronchospasm[ICD10: J98.01] Nirmala WHITINGWESLY JARAMILLO [facility] CPT-4: 63714 12/11/2015 ([id number]) OFFICE/OUTPATIENT VISIT EST Diagnosis: Pneumonia, unspecified organism[ICD10: J18.9] Ananya JARAMILLO DO [employer] CPT-4: 73245 12/08/2015 OFFICE/OUTPATIENT VISIT NEW Diagnosis: Pneumonia, unspecified organism[ICD10: J18.9] Ananya JARAMILLO [facility] CPT-4: 44578 12/01/2015 Plan of Care Planned Activity Notes [...] M76.41 01/23/2019 Appointment: [facility]irm[phone] [facility] [facility] 01/23/2019 Care Plan: Referral Order SNOMED-CT : 30 6074010 Pending 01/23/2019 Visit Diagnosis Plan: Type 2 [...] ICD-10 : F41.1 10/31/2018 Appointment: Lisbeth Kruger [address] [place], [place] [address] ACUTE ILLNESS 10/31/2018 Patient Education: Trulicity- [employer] Coupon [id number] https://www.[employer]/samplePingwyn/resources/getResource/61/v937m7d7-g959-3s88-gr Completed 10/31/2018 Patient Education: Xanax- [employer] Coupon [id number] https://www.[employer]/samplePingwyn/resources/getResource/61/sg01807d-1880-82n8-ja b2-094w444i2123.pdf Completed 10/31/2018 Patient Education: prednisone- OptimizeRX Coupon [id number] [phone] https://www.[employer]/samplePingwyn/resources/getResource/61/789oc967-0771-48r7-02 Completed 10/31/2018 Patient Education: ProAir HFA- OptimizeRX Coupon [phone] https://www.[employer]/samplePingwyn/resources/getResource/61/7wy95241-45m3-6483-14 Completed 10/31/2018 Visit Diagnosis Plan: Type 2 diabetes mellitus with hy perglycemia Discussion: Lab discussed Accuchecks daily Continue current meds Check CMP and HbA1C end of September then fwup ICD-9 : 250.02 ICD-10 : E11.65 08/08/2018 Visit Diagnosis Plan: Essential (primary) hypertension Discussion: Stable ICD-9 : 401.9 ICD-10 : I10 08/08/2018 Appointment: [facility]irm[facility] [phone] [facility] [facility] 08/08/2018 Visit Diagnosis Plan: [...] : R53.83 07/06/2018 Appointment: Nirmala Jaramillo WPtel: [address] [place], [place] [address] FOLLOW UP 07/06/2018 Appointment: Nirmala Jaramillo WPtel: [address] [place], [place] [phone] [place] Consult 06/22/2018 Patient Education: lisinopril- OptimizeRX Coupon [id number] https://www.[employer]/samplemd/resources/getResource/61/387z35g6-fbc8-8697-zx Completed 06/22/2018 Visit Diagnosis Plan: Essential (primary) hypertension Discussion: Increased lisinopril from 5 QD to 20 mg QD. Labs today- CBC, CMP, TSH, A1C. UA today- trace protein. hematuria (patient on period). ICD-9 : 401.9 ICD-10 : I10 06/19/2018 Visit Diagnosis Plan: Dizziness and giddiness Discussi on: Recommend scheduling appt with biology specialist. ICD-9 : 780.4 ICD-10 : R42 06/19/2018 Appointment: Shell Vega [address] [facility] FOLLOW UP 06/19/2018 Visit Diagnosis Plan: Essential [...] ICD-10 : R42 06/13/2018 Appointment: Shell Vega [address] [place] [address] ACUTE ILLNESS 06/13/2018 Appointment: Nirmala Jaramillo WPtel: [address] [place] [address] FLU SWAB 04/26/2018 Visit Diagnosis Plan: Pain in throat Discussion: Rapid Strep A- negative Throat culture- pending. Will call patient with results. Prednisone 10 mg TID x 5 days. Supportive care- fluids, tylenol for pain, humidified air. ICD-9 : 784.1 ICD-10 : R07.0 04/25/2018 Appointment: Shell Vega [address] [place] [address] ACUTE ILLNESS 04/25/2018 Visit Plan: Saline nasal [...] : J01.90 04/14/2018 Appointment: Nirmala Jaramillo WPtel: [address] [place] [address] ACUTE ILLNESS 04/14/2018 Patient Education: prednisone- OptimizeRX Coupon [phone] https://www.[employer]/Ozmotamd/resources/getResource/61/7zah26pd-c8t2-59d0-x8 Completed 04/14/2018 Visit Diagnosis Plan: Pain in right leg Discussion: Ch dickson right tib/fib x-ray and start celebrex May need PT ICD-9 : 729.5 ICD-10 : M79.604 01/31/2018 Visit Diagnosis Plan: Sciatica, right side Discussion: Check L/S spine x-ray ICD-9 : 724.3 ICD-10 : M54.31 01/31/2018 Appointment: Nirmala Jaramillo WPtel: [phone] [place] FOLLOW UP 01/31/2018 Care Plan: X-RAY EXAM L-S SPINE 2/3 VWS LOINC : 67481-1 Pending 01/31/2018 Care Plan: X-RAY EXAM OF LOWER LEG LOINC : 98854-5 Pending 01/31/2018 Visit Diagnosis Plan: Pain in [...] : M79.604 01/23/2018 Appointment: Lisbeth Kruger [address] [facility] ACUTE ILLNESS 01/23/2018 Visit Diagnosis Plan: [...] : J20.9 11/10/2017 [facility] [facility] 11/10/2017 Patient Education: Patient Medication Summary Completed 11/10/2017 Care Plan: CHEST X-RAY 2VW FRONTAL&LATL LOINC : 05863-7 Pending 11/10/2017 Patient Education: Patient Medication Summary Completed 09/26/2017 Care Plan: A1C HPLC LOINC : 77503-3 Pending 09/26/2017 Visit Diagnosis Plan: Encounter for gene ral adult medical examination without abnormal findings Discussion: fasting blood work ordered t o be obtained at [facility] in the next few days when [...] mammogram ordered to be comp leted at [facility]. breast exam performed in office. ICD-9 : V76.11 ICD-10 : Z12.31 09/22/2017 Appointment: Lisbeth Kruger [address] Annual Well Visit 09/22/2017 Patient Education: [...] J01.90 07/05/2017 Appointment: Lisbeth Kruger [address] ACUTE ILLNESS 07/05/2017 Patient Education: Patient [...] : J18.9 03/04/2017 Appointment: Lisbeth Kruger [address] FOLLOW UP 03/04/2017 Patient Education: Patient [...] : R74.8 02/02/2017 Appointment: Nirmala Jaramillo WPtel: [address] [place] [address] FOLLOW UP 02/02/2017 Patient Education: Patient Medication Summary Completed 02/02/2017 Care Plan: Referral Order SNOMED-CT : 30 [id number] Pending 02/02/2017 Patient Education: Patient Medication Summary Completed 01/28/2017 Care Plan: ACUTE HEPATITIS PANEL LOINC : 84679-1 Pending 01/28/2017 Patient Education: Patient Medication Summary Completed 01/26/2017 Care Plan: COMPREH[place] METAB[place] : 48674-8 Pending 01/26/2017 Care Plan: A1C HPLC LOINC : 14398-3 Pending 01/26/2017 Appointment: Nirmala Jaramillo WPtel: [phone] [place] [address] [place] INJECTION 11/30/2016 Referral: Sav Goff[address] [place] [address] C&D [id number] Referral Initiated 11/30/2016 Patient Education: Patient Medication [...] : S90.852A 11/29/2016 Appointment: Nirmala Jaramillo WPtel: [address] [place], [place] [address] ACUTE ILLNESS 11/29/2016 Patient Education: [...] : Z83.49 11/16/2016 Appointment: Nirmala Jaramillo WPtel: [address] [place], [place] [address] FOLLOW UP 11/16/2016 Patient Education: Patient Medication Summary Completed 11/16/2016 Care Plan: Referral Order SNOMED-CT : 30 4019204 Pending 11/16/2016 Appointment: Nirmala Jaramillo WPtel: [address] [place], [place] [phone] RESCHEDULED 11/08/2016 Visit Diagnosis Plan: Other hypertrophic disorders of the skin Discussion: Irritated skin tags excised at base and then bases cauterized ICD-9 : 701.9 ICD-10 : L91.8 10/05/2016 Appointment: Nirmala Jaramillo WPtel: [address] [place], [place] [phone] [id number] confirmed-sp OFFICE SURGERY 10/05/2016 Patient Education: Patient Medication Summary Completed 10/05/2016 Appointment: [facility]irm[facility]illo [facility]el[phone] [facility] [place] Per doctor~ 09/09 canceled due to work ~ CANC ELED 09/10/2016 Visit Diagnosis Plan: Other seasonal allergic rhinitis Discussion: As above ICD-9 : 477.9 ICD-10 : J30.2 09/06/2016 Visit Diagnosis Plan: Cough Discussion: Continue zyrte c and singulair Add flonase If persists at [facility] then will see ENT Follow Up: 2 months ICD-9 : 786.2 ICD-10 : R05 09/06/2016 Visit Diagnosis Plan: Abnormal levels of other serum e nzymes Discussion: Update liver enzymes ICD-9 : 790.5 ICD-10 : R74.8 09/06/2016 Appointment: Nirmala Jaramillo WPtel[facility] [place] 09/02 lm~ FOLLOW UP 09/06/2016 Patient Education: Patient Medication Summary Completed 09/06/2016 Patient Education: Patient Medication Summary Completed 08/18/2016 Care Plan: ACUTE HEPATITIS PANEL LOINC : 65433-5 Pending 08/18/2016 Care Plan: TICKBORNE DISEASE PANEL [...] R05 08/16/2016 Appointment: Nirmala Jaramillo [facility]Ptel[facility] [phone] [facility] [place] 08/13 confirmed ` WORK IN 08/16/2016 Patient Education: Patient Medication Summary Completed 08/16/2016 Care Plan: MAMMOGRAM SCREENING Grandmother Juliane Sahu in late LOINC : 85015-4 Pending 08/16/2016 Patient Education: Patient Medication Summary Completed 07/27/2016 Visit Diagnosis Plan: Acute bronchitis, unspecified Di scussion: Rxs as above Borrow neb machine until home with hers if needed OTC meds reviewed Watch BSs closely Follow up if not improving ICD-9 : 466.0 ICD-10 : J20.9 06/23/2016 Appointment: John Ananya [address] [place] [address] ACUTE ILLNESS 06/23/2016 Patient Education: Patient Medication Summary Completed 06/23/2016 Appointment: Nirmala Jaramillo WPtel: [address] [place] [address] [place] INJECTION 03/09/2016 Patient Education: Patient Medication Summary Completed 03/09/2016 Appointment: Nirmala Jaramillo WPtel: [address] [place] [address] [place] INJECTION 02/16/2016 Visit Plan: Decrease Breo to 100/25mcg 1 p BID for another week Flu shot with Prevnar 13 next week if covered Refill metformin 12/18/2015 Appointment: Nirmala Jaramillo WPtel: [address] [place] [address] 12/16 confirmed`sl FOLLOW UP 12/18/2015 Patient Education: [...] Recheck 1week 12/11/2015 Appointment: Nirmala Jaramillo WPtel: [address] [place] [address] ACUTE ILLNESS 12/11/2015 Patient Education: Patient Medication Summary Completed 12/11/2015 Visit Plan: Patient sounds and appears i mproved Continue mucinex, vit C, breathing treatments, humidifier, vicks, etc CXR on am and will call with report before the weekend Monitor for any return of concerning symptoms - fevers, chills, worsening cough, etc 12/08/2015 Appointment: Ananya Lopez [facility] [facility] 12/04 Lm~sl....confirmed-sp FOLLOW UP 11/28 Patient Education: [...] to improve 12/01/2015 Appointment: Ananya Lopez [address] [facility] 11/30 lm ~sl NEW PATIENT 12/01/2015 Patient Education: Patient Medication Summary Completed 12/01/2015 Referral: Dhruv Montalvo WPtel: [address] [facility] E [id number] [place] Referral Appointment Requested Referral: Chan Chaevz WPtel: [address] [facility] 6 [id number] [place] Referral Completed Referral: Dhruv Lubin WPtel: [address] [facility] [address] Referral Initiated Instructions Comment . Saline [...]
--- OUTSIDE RECORDS SUMMARY | 2019-05-18 13:17 | XMS REPORT | CCD ---
Author Author Veronica Lopez Organization NIRMALA JARAMILLO DO [facility] Address [address] [place] [address] Phone Unavailable Care Team Providers Care Hris Manager Name Role Phone Nirmala Jaramillo D.O., PP Unavailable CCM Unavailable Summary Purpose Interface Exchange Insurance Providers Payer name Policy type / Coverage type Covered libertarian ID Effective Begin Date Effective End Date [employer] Commercial Insurance [id number] Unknown Family History Family History data not found Social History Social History Element Codes Description Effective Dates Marital status Unknown 12/01/2015 Number of children Unknown 3 12/01/2015 Employment Unknown Currently employed 12/01/[address]: 451581954 Never smoker 12/01/[address]: 445865919 Never drinks alcohol 2015 Allergies, Adverse Reactions, [...] 6.25 mg-codeine 10 mg/5 mL syrup RxNorm: 728809 5 Milliliter(s) Oral Q4H as needed 03/26/2019 No Stop Date Active Trulicity 0.75 mg/0.5 mL subcutaneous pen injector RxNorm: 1 010558 INJECT 1 DOSE SUB-Q ONCE WEEKLY 02/19/2019 03/18/2019 Inactive amlodipine 5 mg tablet RxNorm: 860773 TAKE 1 TABLET BY MOUTH 02/19/2019 05/19/2019 Active Lexapro 20 mg tablet RxNorm: 196474 1 TABLET(S) PO QD 01/04/201905/2019 Active lisinopril 40 mg tablet RxNorm: 227300 1 TABLET(S) PO QD 12/05/2018 0 04/03/2019 Active scopolamine 1 mg over 3 days transdermal patch RxNorm: 60319 2 1 Application Transdermal Q72H 11/27/2018 11/26/2018 Inactive scopolamine 1 mg over 3 days transdermal patch RxNorm: 59838 2 1 Application Transdermal Q72H 11/27/2018 11/27/2018 Inactive ondansetron HCl 4 mg tablet RxNorm: 193538 1 Tablet(s) Oral Q4H as needed for nausea 11/27/2018 11/27/2018 Inactive ondansetron HCl 4 mg tablet RxNorm: 805130 1 Tablet(s) Oral Q4H as needed for nausea 11/27/2018 11/26/2018 Inactive amlodipine 5 mg tablet RxNorm: 396239 1 TABLET(S) PO QD 11/20/2018 Inactive Xanax 0.25 mg tablet RxNorm: 166178 1 Tablet(s) PO as needed 2018 No Stop Date Active ProAir HFA 90 mcg/actuation aerosol inhaler RxNorm: 900711 2 Puff(s) INH Q4H as needed 10/31/2018 No Stop Date Active if insurance das s not cover, please switch to [employer]. prednisone 20 mg tablet RxNorm: 637744 1 Tablet(s) PO BID 10/31/2018 11/04/2018 Inactive Zithromax Z-Ab 250 mg tablet RxNorm: 714839 Tablet(s) take as directed PO 10/31/2018 01/22/2019 Inactive Trulicity 0.75 mg/0.5 mL subcutaneous pen injector RxNorm: 1 539188 1 Unit Dose SQ QW 10/31/2018 02/18/2019 Inactive Ozempic 0.25 mg or 0.5 mg (2 mg/1.5 mL) subcutaneous p en injector RxNorm: 8289215 0.5 Milligram(s) SQ QW 10/09/2018 10/30/2018 Inactive Ozempic 0.25 mg or 0.5 mg (2 mg/1.5 mL) subcutaneous p en injector RxNorm: 6125494 0.5 Gram(s) SQ QW 10/05/2018 10/08/2018 Inactive lisinopril 40 mg tablet RxNorm: 316453 1 Tablet(s) PO QD 09/18/2018 1 Inactive metformin 1,000 mg tablet RxNorm: 613116 1 TABLET(S) PO QD 09/07/19 19 03/04/2019 Inactive Trulicity 0.75 mg/0.5 mL subcutaneous pen injector RxNorm: 1 213818 0.75 Milligram(s) SQ QW Replaces Ozemic 08/28/2018 10/30/2018 Inactive replaces Ozempic Ozempic 0.25 mg or 0.5 mg (2 mg/1.5 mL) subcutaneous p en injector RxNorm: 8774032 0.5 Milligram(s) SQ WEEKLY 08/28/2018 10/05/2018 Inactive metformin 1,000 mg tablet RxNorm: 191327 1 Tablet(s) PO QD 08/24/1909/05/2018 Inactive Ozempic 0.25 mg or 0.5 mg (2 mg/1.5 mL) subcutaneous p en injector RxNorm: 0783358 0.5 Milligram(s) SQ WEEKLY 08/03/2018 08/27/2018 Inactive amlodipine 5 mg tablet RxNorm: 375321 1 Tablet(s) PO QD 07/25/2018 Inactive Lexapro 20 mg tablet RxNorm: 683430 1 Tablet(s) PO QD 07/10/201807/2018 Inactive lisinopril 40 mg tablet RxNorm: 398110 1 Tablet(s) PO QD 07/10/2018 0 09/07/2018 Inactive amlodipine 5 mg tablet RxNorm: 699206 1 Tablet(s) PO QD 06/22/2018 Inactive lisinopril 40 mg tablet RxNorm: 344877 1 Tablet(s) PO QD 06/22/2018 0 07/09/2018 Inactive lisinopril 20 mg tablet RxNorm: 218611 1 Tablet(s) PO QD 06/19/2018 0 06/21/2018 Inactive lisinopril 5 mg tablet RxNorm: 729011 1 Tablet(s) PO QD 06/13/2018 Inactive metformin 1,000 mg tablet RxNorm: 765321 Tablet(s) TABLET(S) 1 TABLET(S) PO QD 06/08/2018 08/22/2018 Inactive Tamiflu 75 mg capsule RxNorm: 419342 1 Capsule(s) PO BID 04/26/2018 0 04/30/2018 Inactive Tamiflu 75 mg capsule RxNorm: 558136 1 Capsule(s) PO BID 04/26/2018 0 04/25/2018 Inactive prednisone 10 mg tablet RxNorm: 902829 1 Tablet(s) PO TID 04/25/2018 04/29/2018 Inactive prednisone 20 mg tablet RxNorm: 853862 1 Tablet(s) PO BID 04/14/2018 04/20/2018 Inactive Augmentin 500 mg-125 mg tablet RxNorm: 950171 1 Tablet(s) PO BID 04/20/2018 Inactive metformin 1,000 mg tablet RxNorm: 101529 TABLET(S) 1 TABLET(S) PO Q D 03/09/2018 06/06/2018 Inactive celecoxib 200 mg capsule RxNorm: 895902 1 Capsule(s) PO BID for diana n 01/31/2018 03/01/2018 Inactive metformin 1,000 mg tablet RxNorm: 965941 1 Tablet(s) PO BID 018 No Stop Date Active Medrol (Ab) 4 mg tablets in a dose pack RxNorm: 042561 Tablet(s) PO take as directed 01/23/2018 01/30/2018 Inactive Lexapro 20 mg tablet RxNorm: 713026 Tablet(s) 1 TABLET(S) PO QD 06/21/2018 Inactive Lexapro 20 mg tablet RxNorm: 740735 Tablet(s) 1 TABLET(S) PO QD 07/201701/22/2018 Inactive metformin 1,000 mg tablet RxNorm: 312396 1 Tablet(s) PO BID 018 01/22/2018 Inactive Lexapro 20 mg tablet RxNorm: 729674 Tablet(s) 1 TABLET(S) PO QD 11/02/2017 Inactive metformin 1,000 mg tablet RxNorm: 103817 Tablet(s) 1 TABLET(S) PO Q D 09/22/2017 09/26/2017 Inactive Xanax 0.25 mg tablet RxNorm: 837962 1 Tablet(s) PO as needed 201710/30/2018 Inactive metformin 1,000 mg tablet RxNorm: 614790 Tablet(s) 1 TA BLET(S) PO QD NEEDS UPDATED LABS 09/06/2017 09/20/2017 Inactive metformin 1,000 mg tablet RxNorm: 294049 1 TABLET(S) PO QD NEED S UPDATED LABS 08/24/2017 09/05/2017 Inactive metformin 1,000 mg tablet RxNorm: 557573 1 Tablet(s) PO QD Need s updated labs 08/08/2017 08/22/2017 Inactive Lexapro 20 mg tablet RxNorm: 702923 1 TABLET(S) PO QD 07/17/201708/29 Inactive pseudoephedrine 30 mg tablet RxNorm: 2750436 1-2 Tablet(s) PO Q6H 0 07/05/2017 06/12/2018 Inactive Augmentin 875 mg-125 mg tablet RxNorm: 358601 1 Tablet(s) PO BID 07/14/2017 Inactive metformin 1,000 mg tablet RxNorm: 824350 1 Tablet(s) PO QD Need s updated labs 07/04/2017 08/08/2017 Inactive metformin 1,000 mg tablet RxNorm: 354165 1 Tablet(s) PO QD Need s updated labs 05/30/2017 07/04/2017 Inactive Levaquin 750 mg tablet RxNorm: 621990 1 Tablet(s) PO QD 03/04/2017 Inactive ProAir HFA 90 mcg/actuation aerosol inhaler RxNorm: 533786 2 Puff(s) INH Q4H as needed 03/04/2017 07/04/2017 Inactive if insurance das s not cover, please switch to ventolin. Tamiflu 75 mg capsule RxNorm: 803761 1 Capsule(s) PO QD 03/04/2017 Inactive metformin 1,000 mg tablet RxNorm: 231082 1 Tablet(s) PO QD 02/16/20 17 05/15/2017 Inactive Lexapro 20 mg tablet RxNorm: 929371 1 Tablet(s) PO QD 01/17/201707/2017 Inactive cephalexin 500 mg capsule RxNorm: 546124 1 Capsule(s) PO TID 201612/08/2016 Inactive pantoprazole 40 mg tablet,delayed release RxNorm: 500676 1 Tabl et(s) PO QD 11/16/2016 03/15/2017 Inactive metformin 1,000 mg tablet RxNorm: 822460 TAKE 1 TABLET BY MOUTH EVERY DAY 10/10/2016 02/15/2017 Inactive Flonase Allergy Relief 50 mcg/actuation nasal spray,suspensi on RxNorm: 3547087 2 [place] NASAL QHS 09/06/2016 11/15/2016 Inactive Singulair 10 mg tablet RxNorm: 030688 1 Tablet(s) PO QHS 09/06/2016 0 11/15/2016 Inactive Singulair 10 mg tablet RxNorm: 535498 1 Tablet(s) PO QHS 08/12/2016 0 09/05/2016 Inactive ProAir HFA 90 mcg/actuation aerosol inhaler RxNorm: 323248 1 Puff(s) INH Q4H as needed 08/12/2016 08/15/2016 Inactive Medrol (Ab) 4 mg tablets in a dose pack RxNorm: 124408 Tablet(s) PO As Directed 07/29/2016 08/15/2016 Inactive Lexapro 20 mg tablet RxNorm: 851876 1 Tablet(s) PO QD 07/06/201612/30 Inactive doxycycline hyclate 100 mg capsule RxNorm: 5538283 1 Capsule(s) PO BID 06/24/2016 06/23/2016 Inactive doxycycline hyclate 100 mg capsule RxNorm: 0230030 1 Capsule(s) PO BID 06/24/2016 07/03/2016 Inactive ProAir HFA 90 mcg/actuation aerosol inhaler RxNorm: 421766 1 Puff(s) INH Q4H as needed 06/23/2016 08/11/2016 Inactive prednisone 20 mg tablet RxNorm: 885060 1 Tablet(s) PO BID 06/23/2016 06/27/2016 Inactive metformin 1,000 mg tablet RxNorm: 598611 1 Tablet(s) PO QD 12/18/19 16 06/14/2016 Inactive Lexapro 20 mg tablet RxNorm: 800987 1 Tablet(s) PO QD 12/18/201510/2016 Inactive prednisone 20 mg tablet RxNorm: 143941 Take 3 tabs PO Q D x 3 days, then 2 tabs PO QD x 3 days, then 1 tab PO QD x 3 days 12/01/2015 12/10/2015 Inacti ve albuterol sulfate 2.5 mg/3 mL (0.083 %) solution for n ebulization RxNorm: 394404 3 Milliliter(s) INH Q4H as needed 12/01/2015 07/04/2017 Inactiv e Singulair 10 mg tablet RxNorm: 642720 1 Tablet(s) PO QHS No Start D ate 08/11/2016 Inactive Breo Ellipta 100 mcg-25 mcg/dose powder for inhalation RxNor m: 8230333 1 Puff(s) INH QD No Start Date 02/01/2017 Inactive Zyrtec 10 mg tablet RxNorm: 6476077 1 Tablet(s) PO QAM No Start Date 11/15/2016 Inactive Xanax 0.25 mg tablet RxNorm: 397463 1 Tablet(s) PO as needed No Sta rt Date 09/21/2017 Inactive metformin 1,000 mg tablet RxNorm: 588257 1 Tablet(s) PO QD No Start Date 12/17/2015 Inactive Singulair 10 mg tablet RxNorm: 651779 1 Tablet(s) PO QHS No Start D ate 11/15/2016 Inactive metformin 1,000 mg tablet RxNorm: 749620 1 Tablet(s) PO QD No Start Date 02/14/2017 Inactive metformin 1,000 mg tablet RxNorm: 577069 1 Tablet(s) PO BID No Star t Date 09/26/2017 Inactive Trulicity 0.75 mg/0.5 mL subcutaneous pen injector RxNorm: 1 524999 0.75 Milligram(s) SQ QW No Start Date 08/27/2018 Inactive Medrol (Ab) 4 mg tablets in a dose pack RxNorm: 824808 Tablet(s) PO As Directed No Start Date 07/28/2016 Inactive Lexapro 20 mg tablet RxNorm: 378183 1 Tablet(s) PO QD No Start Date 1 Inactive Lexapro 20 mg tablet RxNorm: 135276 1 Tablet(s) PO QD No Start Date 0 07/09/2018 Inactive Medication Administered No Medication Administered data Immunizations Vaccine Codes Date Status Tetanus, Diptheria, Pertussis CVX: 115 11/30/2016 Co mplete Pneumococcal CVX: 133 03/09/2016 Complete Results Observation Observation Code Item Item Code Result Date S vice Location VIRAL HEPATITIS PROFILE #2 65924 Hep A IgM Non-Reactive 06/20/2018 Unknown VIRAL HEPATITIS PROFILE #2 44218 Hep B Core IgM Non-Reac tive 06/20/2018 Unknown VIRAL HEPATITIS PROFILE #2 02301 Hepatitis C Ab Non-Reac tive 06/20/2018 Unknown VIRAL HEPATITIS PROFILE #2 53422 Hep Bs Ag Non-Reactive 06/20/2018 Unknown MEAN GLUC 4014220 Calc Mean Gluc 194 mg/dL 06/19/2018 Unkn own COMPREHENSIVE METABOLIC 86505 AST 94 U/L 2018 Unknown COMPREHENSIVE METABOLIC 48915 ALT 160 U/L 2018 Unknown COMPREHENSIVE METABOLIC 36814 BUN 9 mg/dL 2018 Unknown COMPREHENSIVE METABOLIC 48170 ALBUMIN 4.6 g/dL 2018 Unknown COMPREHENSIVE METABOLIC 92828 CHLORIDE 101 mmol/L 06/19 Unknown COMPREHENSIVE METABOLIC 20458 Bili Total 0.9 mg/dL 06/19 Unknown COMPREHENSIVE METABOLIC 68666 ALK PHOS 64 U/L 2018 Unknown COMPREHENSIVE METABOLIC 77739 SODIUM 136 mmol/L 06/19 Unknown COMPREHENSIVE METABOLIC 01525 CREATININE 0.58 mg/dL 05/30 Unknown COMPREHENSIVE METABOLIC 16191 CALCIUM 10.3 mg/dL 06/19 Unknown COMPREHENSIVE METABOLIC 00814 POTASSIUM 3.7 mmol/L 06/19 Unknown COMPREHENSIVE METABOLIC 32679 Total Protein 7.1 g/dL Unknown COMPREHENSIVE METABOLIC 98256 Glucose 187 mg/dL 2018 Unknown COMPREHENSIVE METABOLIC 90371 Bicarbonate 26 mmol/L 05/30 Unknown COMPREHENSIVE METABOLIC 96503 AGAP 9 mmol/L 2018 Unknown GLYCOSYLATED HEMOGLOBIN TEST 98314 Hgb A1c 63860-1 8.4 % 0 06/19/2018 Unknown COMPLETE BLOOD COUNT 1270498 WBC 6.2 10e9/L 06/20/19 19 Unknown COMPLETE BLOOD COUNT 8122588 RBC 4.70 10e12/L 2018 Unknown COMPLETE BLOOD COUNT 4644790 HEMOGLOBIN 13.4 g/dL 06/20/19 19 Unknown COMPLETE BLOOD COUNT 5262267 HEMATOCRIT 39.9 % 06/20/19 19 Unknown COMPLETE BLOOD COUNT 1479982 MCV 84.9 fL 9 Unknown COMPLETE BLOOD COUNT 2675030 MCH 28.5 pg 9 Unknown COMPLETE BLOOD COUNT 1954833 MCHC 33.6 g/dL 9 Unknown COMPLETE BLOOD COUNT 7264637 PLATELET COUNT 252 10e9/L Unknown COMPLETE BLOOD COUNT 5298171 Mean Plt Volume 12.2 fL Unknown COMPLETE BLOOD COUNT 4682023 Neut Auto 53.9 % 9 Unknown COMPLETE BLOOD COUNT 5774646 Lymph Auto 35.2 % 06/20/19 19 Unknown COMPLETE BLOOD COUNT 8522460 [place] Auto 7.1 % 9 Unknown COMPLETE BLOOD COUNT 5102470 RDW 14.1 % 9 Unknown COMPLETE BLOOD COUNT 0925480 Eos Auto 3.2 % 9 Unknown COMPLETE BLOOD COUNT 4441042 Baso Auto 0.6 % 9 Unknown COMPLETE BLOOD COUNT 7481546 Neutrophil Abs 3.34 10e9/L Unknown COMPLETE BLOOD COUNT 1493165 Lymphocyte Abs 2.18 10e9/L Unknown COMPLETE BLOOD COUNT 6230830 Monocyte Abs 0.44 10e9/L 05/30 Unknown COMPLETE BLOOD COUNT 1459564 Eosinophil Abs 0.20 10e9/L Unknown COMPLETE BLOOD COUNT 5210375 RDW-SD 42.7 fL 9 Unknown COMPLETE BLOOD COUNT 8667315 Basophil Abs 0.04 10e9/L 05/30 Unknown THYROID STIMULATING HORMONE 17515 TSH 1.976 uIU/mL 06/19/2018 Unknown GFR CALC 6220585 GFR Non Afr Amr >60 mL/min 06/19/2018 Un known GFR CALC 8698512 GFR Afr Amr >60 mL/min 06/19/2018 Unknow n SURESWAB(R), BACTERIAL VAGINOSIS/VAGINITIS 37269 BV CATEGORY: TNP 09/27/2017 [facility] [address] [place] [address] SURESWAB(R), BACTERIAL VAGINOSIS/VAGINITIS 04254 LACTOBACILLUS S PECIES DNR 09/27/2017 [facility] [place] [address] [place] [address] SURESWAB(R), BACTERIAL VAGINOSIS/VAGINITIS 66955 ATOPOBIUM VAGIN AE DNR 09/27/2017 [facility] [address] [place] [address] SURESWAB(R), BACTERIAL VAGINOSIS/VAGINITIS 46248 MEGASPHAERA SPE CIES DNR 09/27/2017 [facility] [address] [facility] [place] [address] SURESWAB(R), BACTERIAL VAGINOSIS/VAGINITIS 72243 GARDNERELLA VAG INALIS DNR 09/27/2017 [facility] [address] [place] [address] SURESWAB(R), BACTERIAL VAGINOSIS/VAGINITIS 64369 SURESWAB(R) TRICHOMONAS VAGINALIS RNA, QL TMA TNP 09/27/2017 [facility] [address] [facility] [place] [address] SURESWAB(R), BACTERIAL VAGINOSIS/VAGINITIS 53781 C. ALBICANS, DN A TNP 09/27/2017 [facility] [address] [address] [facility] [place] [address] SURESWAB(R), BACTERIAL VAGINOSIS/VAGINITIS 71437 C. GLABRATA, DN A DNR 09/27/2017 [facility] [address] [place] [address] SURESWAB(R), BACTERIAL VAGINOSIS/VAGINITIS 09545 C. TROPICALIS, DNA DNR 09/27/2017 [facility] [address] SURESWAB(R), BACTERIAL VAGINOSIS/VAGINITIS 81703 C. PARAPSILOSIS , DNA DNR 09/27/2017 [facility] [address] [place] [address] THINPREP TIS AND HPV mRNA E6/E7 59148 REPORT STATUS: DNR 09/27/2017 [facility] [place] [address] [place] [address] THINPREP TIS AND HPV mRNA E6/E7 07797 CLINICAL INFORMATION: 09/27/2017 [facility] [address] [place] [address] THINPREP TIS AND HPV mRNA E6/E7 90808 LMP: 201709/27/[address] [place] [address] [address] THINPREP TIS AND HPV mRNA E6/E7 83957 PREV. PAP: 09/27/[address] [place] [address] [address] THINPREP TIS AND HPV mRNA E6/E7 87379 PREV. BX: 09/27/2017 [place] [address] THINPREP TIS AND HPV mRNA E6/E7 05671 SOURCE: Cerv ix 09/27/2017 [place] [place] [address] THINPREP TIS AND HPV mRNA E6/E7 86004 STATEMENT OF ADEQUACY: 09/27/2017 [place] [address] THINPREP TIS AND HPV mRNA E6/E7 11518 GENERAL CATEGORIZATION: DNR 09/27/2017 [place] [place] [address] THINPREP TIS AND HPV mRNA E6/E7 08490 INTERPRETATION/RESULT: 09/27/2017 [place] [place] [address] THINPREP TIS AND HPV mRNA E6/E7 58824 INFECTION: DNR 09/27/2017 [place] [place] [address] THINPREP TIS AND HPV mRNA E6/E7 32414 COMMENT: 09/27/2017 [place] [address] THINPREP TIS AND HPV mRNA E6/E7 33334 BAG LOADER: 09/27/2017 [place] [address] THINPREP TIS AND HPV mRNA E6/E7 51405 REVIEW BAG LOADER: DNR 09/27/2017 [place] [address] THINPREP TIS AND HPV mRNA E6/E7 53192 PATHOLOGIST: KHLOE Srivastava 09/27/2017 [facility] [address] [place] [address] THINPREP TIS AND HPV mRNA E6/E7 53684 COMMENT 09/27/2017 [facility] [address] [place] [address] THINPREP TIS AND HPV mRNA E6/E7 89149 HPV mRNA E6/E7 Not Detected 09/27/2017 [facility] [address] [place] [address] CULTURE, GENITAL 95520 CULTURE, GENITAL SEE NOTE [facility] [address] [address] [place] [address] CULTURE, THROAT 50220 CULTURE, THROAT SEE NOTE 07/30 [facility] [place] [address] Procedures Procedure Codes Date INFLUENZA ASSAY W/OPTIC CPT-4: 99223 03/26/2019 DEXAMETHASONE SODIUM PHOS CPT-4: J1100 03/26/2019 THER/PROPH/DIAG INJ SC/IM CPT-4: 28577 03/26/2019 TRIAMCINOLONE ACET INJ NOS CPT-4: J3301 03/26/2019 DRAIN/INJECT JOINT/BURSA CPT-4: 36640 01/23/2019 ROUTINE VENIPUNCTURE CPT-4: 27654 06/19/2018 COMPLETE CBC W/AUTO DIFF WBC CPT-4: 62730 06/19/2018 COMPREHEN METABOLIC PANEL CPT-4: 05822 06/19/2018 A1C HPLC CPT-4: 39477 06/19/2018 ASSAY THYROID STIM HORMONE CPT-4: 28882 06/19/2018 URINALYSIS NONAUTO W/O SCOPE CPT-4: 02360 06/19/2018 ACUTE HEPATITIS PANEL CPT-4: 43315 06/19/2018 INFLUENZA ASSAY W/OPTIC CPT-4: 57679 04/26/2018 STREP A ASSAY W/OPTIC CPT-4: 86557 04/25/2018 THROAT CULTURE CPT-4: 79315 04/25/2018 CEFTRIAXONE SODIUM INJECTION CPT-4: J0696 11/10/2017 DEXAMETHASONE SODIUM PHOS CPT-4: J1100 11/10/2017 THER/PROPH/DIAG INJ SC/IM CPT-4: 24935 11/10/2017 TRIAMCINOLONE ACET INJ NOS CPT-4: J3301 11/10/2017 OCCULT BLOOD FECES CPT-4: 84779 09/22/2017 SURESWAB(R), BACTERIAL VAGINOSIS/VAGINITIS CPT-4: 68693 09/22/2017 CULTURE, GENITAL CPT-4: 21994 09/22/2017 TDAP VACCINE 7 YRS/> IM CPT-4: 41851 11/30/2016 IMMUNIZATION ADMIN CPT-4: 56299 11/30/2016 REMOVAL OF FOOT FOREIGN BODY CPT-4: 74831 11/29/2016 REMOVAL OF SKIN TAGS <W/15 CPT-4: 23458 10/05/2016 CULTURE, THROAT CPT-4: 36998 08/16/2016 PNEUMOCOCCAL VACC 13 AYSHA IM CPT-4: 37963 03/09/2016 IMMUNIZATION ADMIN CPT-4: 34298 03/09/2016 THER/PROPH/DIAG INJ SC/IM CPT-4: 55380 12/11/2015 TRIAMCINOLONE ACET INJ NOS CPT-4: J3301 [...] 1: 126/84 Code: 8480-6 BMI: 39.9 Code: 49248-5 Heart Rate 1: 80 bpm Height: 5'2" [...] 1: 126/82 Code: 8480-6 BMI: 40.6 Code: 77155-4 Heart Rate 1: 72 bpm Height: 5'2" [...] 1: 124/68 Code: 8480-6 BMI: 41.7 Code: 79008-7 Heart Rate 1: 66 bpm Height: 5'2" Respiratory Rate: 20 bpm SpO2: 98% Tempera ture: 36.2 (C) / 97.2 (F) Weight: 228 lbs 09/22/2017 Blood Pressure 1: 142/80 Code: 8480-6 BMI: 41.3 Code: 20624-4 Heart Rate 1: 60 bpm Height: 5'2" Respiratory Rate: 20 bpm SpO2: 98% Tempera ture: 36.3 (C) / 97.3 (F) Weight: 226 lbs 07/05/2017 Blood Pressure 1: 129/82 Code: 8480-6 BMI: 42.3 Code: 26614-1 Heart Rate 1: 60 bpm Height: 5'2" SpO2: 97% Temperature: 36.4 (C) / 97.6 (F) Weight: 231 lbs 03/04/2017 Blood Pressure 1: 142/80 Code: 8480-6 BMI: 42.4 Code: 63897-6 Heart Rate 1: 74 bpm Height: 5'2" Respiratory Rate: 24 bpm SpO2: 97% Tempera ture: 36.4 (C) / 97.6 (F) Weight: 232 lbs 02/02/2017 Blood Pressure 1: 146/82 Code: 8480-6 BMI: 42.4 Code: 94255-1 Heart Rate 1: 84 bpm Height: 5'2" Respiratory Rate: 20 bpm SpO2: 98% Tempera ture: 36.6 (C) / 97.9 (F) Weight: 232 lbs 11/29/2016 Blood Pressure 1: 12678 Code: 8480-6 Heart Rate 1: 76 bpm Height: 5'2" Respiratory Rate: 20 bpm SpO2: 96% Temperature: 36 .9 (C) / 98.4 (F) 11/16/2016 Blood Pressure 1: 136/94 Code: 8480-6 BMI: 42.6 Code: 17224-1 Heart Rate 1: 68 bpm Height: 5'2" Respiratory Rate: 20 bpm SpO2: 96% Tempera ture: 36.9 (C) / 98.4 (F) Weight: 233 lbs 10/05/2016 Blood Pressure 1: 112/78 Code: 8480-6 BMI: 41.5 Code: 55293-9 Heart Rate 1: 80 bpm Height: 5'2" Respiratory Rate: 20 bpm SpO2: 97% Tempera ture: 36.8 (C) / 98.2 (F) Weight: 227 lbs 09/06/2016 Blood Pressure 1: 126/82 Code: 8480-6 BMI: 42.4 Code: 77151-4 Heart Rate 1: 64 bpm Height: 5'2" Respiratory Rate: 20 bpm SpO2: 98% Tempera ture: 37.0 (C) / 98.6 (F) Weight: 232 lbs 08/16/2016 Blood Pressure 1: 136/82 Code: 8480-6 BMI: 42.1 Code: 20802-9 Heart Rate 1: 72 bpm Height: 5'2" [...] 1: 144/80 Code: 8480-6 BMI: 40.4 Code: 46662-4 Heart Rate 1: 92 bpm Height: 5'2" Respiratory Rate: 20 bpm SpO2: 95% Tempera ture: 36.8 (C) / 98.2 (F) Weight: 221 lbs 12/08/2015 Blood Pressure 1: 124/78 Code: 8480-6 Heart Rate 1: 108 bpm Height: 5'2" Respiratory Rate: 22 bpm SpO2: 95% Temperature: 36.2 (C) / 97.2 (F) Weight: 12/01/2015 Blood Pressure 1: 124/78 Code: 8480-6 BMI: 40.4 Code: 91613-8 Heart Rate 1: 92 bpm Height: 5'2" [...] leg cough 11/10/2017 patient was seen at [facility] and given Levaquin and 5 day [...] care Encounters Encounter Performer Location Codes Date ([id number]) OFFICE/OUTPATIENT VISIT EST Diagnosis: Upper respiratory infection[ICD10: J06.9] Lisbeth JARAMILLO [employer] CPT-4: 66033 03/26/2019 ([id number]) OFFICE/OUTPATIENT VISIT EST Diagnosis: Acute upper respiratory infection, unspecified[ICD10: J06.9] Diagnosis: Generalized anxiety disorder[ICD10: F41.1] Diagnosis: Type 2 diabetes mellitus with hyperglycemia[ICD10: E11.65] Diagnosis: Encounter for therapeutic drug level monitoring[ICD10: Z51.81] Lisbeth Murguia [employer] CPT-4: 54042 10/31/2018 ([id number]) OFFICE/OUTPATIENT VISIT EST Diagnosis: Type 2 diabetes mellitus with hyperglycemia[ICD10: E11.65] Diagnosis: Essential (primary) hypertension[ICD10: I10] Nirmala Murguia [employer] CPT-4: 75513 08/08/2018 ([id number]) OFFICE/OUTPATIENT VISIT EST Diagnosis: Essential (primary) hypertension[ICD10: I10] Diagnosis: Type 2 diabetes mellitus with hyperglycemia[ICD10: E11.65] Diagnosis: Other fatigue[ICD10: R53.83] Nirmala JARAMILLO [employer] [facility] CPT-4: 64940 07/06/2018 ([id number]) OFFICE/OUTPATIENT VISIT EST Diagnosis: Dizziness and giddiness[ICD10: R42] Diagnosis: Elevated blood-pressure reading, without diagnosis of hypertension[ICD10: R03.0] Shell JARAMILLO [employer] [facility] CPT- 4: 68516 06/19/2018 ([id number]) OFFICE/OUTPATIENT VISIT EST Diagnosis: Essential (primary) hypertension[ICD10: I10] Diagnosis: Dizziness and giddiness[ICD10: R42] Shell JARAMILLO [employer] CPT-4: 79216 06/13/2018 ([id number]) NURSE/OUTPATIENT VISIT EST Diagnosis: Influenza due to identified novel influenza A virus with other manifestations[ICD10: J09.X9] Nirmala JARAMILLO [employer] [facility] CPT-4: 14198 04/26/2018 OFFICE/OUTPATIENT VISIT EST Diagnosis: Pain in throat[ICD10: R07.0] Diagnosis: Acute pharyngitis, unspecified[ICD10: J02.9] Shell JARAMILLO [employer] [facility] CPT-4: 86491 04/25/2018 ([id number]) OFFICE/OUTPATIENT VISIT EST Diagnosis: Acute sinusitis, unspecified[ICD10: J01.90] Diagnosis: Paresthesia of skin[ICD10: R20.2] Nirmala ORNELASDAMON Yee Shantal JARAMILLO [employer] [facility] CPT-4: 55552 04/14/2018 ([id number]) OFFICE/OUTPATIENT VISIT EST Diagnosis: Pain in right leg[ICD10: M79.604] Diagnosis: Sciatica, right side[ICD10: M54.31] Nirmala JARAMILLO [employer] CPT-4: 74215 01/31/2018 ([id number]) OFFICE/OUTPATIENT VISIT EST Diagnosis: Pain in right leg[ICD10: M79.604] Lisbeth JARAMILLO DO [facility] CPT-4: 14787 01/23/2018 ([id number]) OFFICE/OUTPATIENT VISIT EST Diagnosis: Acute bronchitis, unspecified[ICD10: J20.9] Lisbeth JARAMILLO DO [facility] CPT-4: 18759 11/10/2017 ([id number]) PREV VISIT EST AGE 40-64 Diagnosis: Encounter [...] JARAMILLO DO [facility] CPT-4: 03684 09/22/2017 ([id number]) OFFICE/OUTPATIENT VISIT EST Diagnosis: Acute sinusitis, unspecified[ICD10: J01.90] Lisbeth JARAMILLO DO [facility] CPT-4: 57892 07/05/2017 OFFICE/OUTPATIENT VISIT EST Diagnosis: Pneumonia, unspecified organism[ICD10: J18.9] Lisbeth JARAMILLO DO [facility] CPT-4: 13815 03/04/2017 ([id number]) OFFICE/OUTPATIENT VISIT EST Diagnosis: Polycystic ovarian syndrome[ICD10: E28.2] Diagnosis: Abnormal levels of other serum enzymes[ICD10: R74.8] Diagnosis: Nonalcoholic steatohepatitis (MOORE)[ICD10: K75.81] Diagnosis: Impaired glucose tolerance (oral)[ICD10: R73.02] Nirmala JARAMILLO DO [facility] CPT-4: 04240 02/02/2017 ([id number]) OFFICE/OUTPATIENT VISIT EST Diagnosis: VACCINE FOR TDAP[ICD10: Z23] Nirmala JARAMILLO DO [facility] CPT-4: 86426 11/30/2016 ([id number]) OFFICE/OUTPATIENT VISIT EST Diagnosis: Cough[ICD10: R05] Diagnosis: Abnormal levels of other serum enzymes[ICD10: R74.8] Diagnosis: Family history of other endocrine, nutritional and metabolic diseases[ICD10: Z83.49] Nirmala JARAMILLO DO [facility] CPT-4: 45657 11/16/2016 ([id number]) OFFICE/OUTPATIENT VISIT EST Diagnosis: Cough[ICD10: R05] Diagnosis: Other seasonal allergic rhinitis[ICD10: J30.2] Diagnosis: Abnormal levels of other serum enzymes[ICD10: R74.8] Nirmala JARAMILLO DO [facility] CPT-4: 45049 09/06/2016 ([id number]) OFFICE/OUTPATIENT VISIT EST Diagnosis: Cough[ICD10: R05] Diagnosis: Polycystic ovarian syndrome[ICD10: E28.2] Nirmala JARAMILLO DO [facility] CPT-4: 60098 08/16/2016 ([id number]) OFFICE/OUTPATIENT VISIT EST Diagnosis: Acute bronchitis, unspecified[ICD10: J20.9] Diagnosis: Acute upper respiratory infection, unspecified[ICD10: J06.9] Ananya John JARAMILLO [facility] CPT-4: 42118 06/23/2016 ([id number]) OFFICE/OUTPATIENT VISIT EST Diagnosis: PNEUMOCOCCAL VACCINE[ICD10: Z23] Nirmala JARAMILLO DO [facility] CPT-4: 91994 03/09/2016 ([id number]) OFFICE/OUTPATIENT VISIT EST Diagnosis: Pneumonia, unspecified organism[ICD10: J18.9] Diagnosis: Polycystic ovarian syndrome[ICD10: E28.2] Diagnosis: Generalized anxiety disorder[ICD10: F41.1] Nirmala JARAMILLO DO [facility] CPT-4: 91042 12/18/2015 ([id number]) OFFICE/OUTPATIENT VISIT EST Diagnosis: Cough[ICD10: R05] Diagnosis: Acute bronchospasm[ICD10: J98.01] Nirmala WHITINGWESLY JARAMILLO [employer] CPT-4: 23314 12/11/2015 ([id number]) OFFICE/OUTPATIENT VISIT EST Diagnosis: Pneumonia, unspecified organism[ICD10: J18.9] Ananya JARAMILLO DO [facility] CPT-4: 29349 12/08/2015 OFFICE/OUTPATIENT VISIT NEW Diagnosis: Pneumonia, unspecified organism[ICD10: J18.9] Ananya JARAMILLO [employer] CPT-4: 96155 12/01/2015 Plan of Care Planned Activity Notes [...] M76.41 01/23/2019 Appointment: [facility]irm[phone] [facility] [facility] 01/23/2019 Care Plan: Referral Order SNOMED-CT : 30 [id number] Pending 01/23/2019 Visit Diagnosis Plan: Type 2 [...] ICD-10 : F41.1 10/31/2018 Appointment: Lisbeth Kruger [address] [place], [place] [id number] ACUTE ILLNESS 10/31/2018 Patient Education: Trulicity- OptimizeRX Coupon [id number] https://www.[employer]/sampleThe Edge in [employer]/resources/getResource/61/q936e7d3-a175-5g72-gw Completed 10/31/2018 Patient Education: Xanax- OptimizeRX Coupon [id number] https://www.[employer]/sample[employer]/resources/getResource/61/ex63975t-7616-57a4-kp b2-182a855w2210.pdf Completed 10/31/2018 Patient Education: prednisone- OptimizeRX Coupon [id number] [phone] https://www.[employer]/sample[employer]/resources/getResource/61/502ny935-3778-87u2-10 Completed 10/31/2018 Patient Education: ProAir HFA- OptimizeRX Coupon [phone] https://www.[employer]/sample[employer]/resources/getResource/61/6ik85843-67j2-8225-60 Completed 10/31/2018 Visit Diagnosis Plan: Type 2 diabetes mellitus with hy perglycemia Discussion: Lab discussed Accuchecks daily Continue current meds Check CMP and HbA1C end of September then fwup ICD-9 : 250.02 ICD-10 : E11.65 08/08/2018 Visit Diagnosis Plan: Essential (primary) hypertension Discussion: Stable ICD-9 : 401.9 ICD-10 : I10 08/08/2018 Appointment: Nirmala [facility]illo [facility]Ptel[facility] [phone] [facility] [facility] 08/08/2018 Visit Diagnosis Plan: [...] : R53.83 07/06/2018 Appointment: Nirmala Jaramillo WPtel: [address] [place], [place] [address] FOLLOW UP 07/06/2018 Appointment: Nirmala Jaramillo WPtel: [address] [place], [place] [phone] [place] Consult 06/22/2018 Patient Education: lisinopril- OptimizeRX Coupon [id number] https://www.[employer].Lesson [employer]/samplemd/resources/getResource/61/778z87u8-qdc3-2762-iw Completed 06/22/2018 Visit Diagnosis Plan: Essential (primary) hypertension Discussion: Increased lisinopril from 5 QD to 20 mg QD. Labs today- CBC, CMP, TSH, A1C. UA today- trace protein. hematuria (patient on period). ICD-9 : 401.9 ICD-10 : I10 06/19/2018 Visit Diagnosis Plan: Dizziness and giddiness Discussi on: Recommend scheduling appt with tire maker. ICD-9 : 780.4 ICD-10 : R42 06/19/2018 Appointment: Shell Vega [address] [facility] FOLLOW UP 06/19/2018 Visit Diagnosis Plan: Essential [...] ICD-10 : R42 06/13/2018 Appointment: Shell Vega [address] [place] [address] ACUTE ILLNESS 06/13/2018 Appointment: Nirmala Jaramillo WPtel: [address] [place] [address] FLU SWAB 04/26/2018 Visit Diagnosis Plan: Pain in throat Discussion: Rapid Strep A- negative Throat culture- pending. Will call patient with results. Prednisone 10 mg TID x 5 days. Supportive care- fluids, tylenol for pain, humidified air. ICD-9 : 784.1 ICD-10 : R07.0 04/25/2018 Appointment: Shell Vega [address] [place] [address] ACUTE ILLNESS 04/25/2018 Visit Plan: Saline nasal [...] : J01.90 04/14/2018 Appointment: Nirmala Jaramillo WPtel: [address] [place] [address] ACUTE ILLNESS 04/14/2018 Patient Education: prednisone- OptimizeRX Coupon [phone] https://www.[employer].Lesson Prep/Smart Hologramsmd/resources/getResource/61/3bsj17of-h0b4-17s8-y4 Completed 04/14/2018 Visit Diagnosis Plan: Pain in right leg Discussion: Ch dickson right tib/fib x-ray and start celebrex May need PT ICD-9 : 729.5 ICD-10 : M79.604 01/31/2018 Visit Diagnosis Plan: Sciatica, right side Discussion: Check L/S spine x-ray ICD-9 : 724.3 ICD-10 : M54.31 01/31/2018 Appointment: Nirmala Jaramillo WPtel: [phone] [id number] FOLLOW UP 01/31/2018 Care Plan: X-RAY EXAM L-S SPINE 2/3 VWS LOINC : 28290-7 Pending 01/31/2018 Care Plan: X-RAY EXAM OF LOWER LEG LOINC : 07836-1 Pending 01/31/2018 Visit Diagnosis Plan: Pain in [...] : M79.604 01/23/2018 Appointment: Lisbeth Kruger [address] [facility] ACUTE ILLNESS 01/23/2018 Visit Diagnosis Plan: [...] Plan: CHEST X-RAY 2VW FRONTAL&LATL LOINC : 59825-4 Pending 11/10/2017 Patient Education: Patient Medication Summary Completed 09/26/2017 Care Plan: A1C HPLC LOINC : 50972-1 Pending 09/26/2017 Visit Diagnosis Plan: Encounter for gene ral adult medical examination without abnormal findings Discussion: fasting blood work ordered t o be obtained at [facility] in the next few days when [...] mammogram ordered to be comp leted at [facility]. breast exam performed in office. ICD-9 : V76.11 ICD-10 : Z12.31 09/22/2017 Appointment: Lisbeth Kruger [address] Annual Well Visit 09/22/2017 Patient Education: [...] J01.90 07/05/2017 Appointment: Lisbeth Kruger [address] ACUTE ILLNESS 07/05/2017 Patient Education: Patient [...] : J18.9 03/04/2017 Appointment: Lisbeth Kruger [address] FOLLOW UP 03/04/2017 Patient Education: Patient [...] : R74.8 02/02/2017 Appointment: Nirmala Jaramillo WPtel: [address] [place] [address] FOLLOW UP 02/02/2017 Patient Education: Patient Medication Summary Completed 02/02/2017 Care Plan: Referral Order SNOMED-CT : 30 [id number] Pending 02/02/2017 Patient Education: Patient Medication Summary Completed 01/28/2017 Care Plan: ACUTE HEPATITIS PANEL LOINC : 53629-2 Pending 01/28/2017 Patient Education: Patient Medication Summary Completed 01/26/2017 Care Plan: COMPREHEN METABOLIC PANEL [place] : 54536-6 Pending 01/26/2017 Care Plan: A1C HPLC LOINC : 85583-6 Pending 01/26/2017 Appointment: Nirmala Jaramillo WPtel: [phone] [place] [address] [place] INJECTION 11/30/2016 Referral: Sav Goff[address] [place] [address] C&D [id number] Referral Initiated 11/30/2016 Patient Education: Patient Medication [...] S90.852A 11/29/2016 Appointment: Nirmala Jaramillo WPtel: [address] [place], [place] [phone] ACUTE ILLNESS 11/29/2016 Patient Education: Patient Medication [...] : Z83.49 11/16/2016 Appointment: Nirmala Jaramillo WPtel: [address] [place], [place] [address] FOLLOW UP 11/16/2016 Patient Education: Patient Medication Summary Completed 11/16/2016 Care Plan: Referral Order SNOMED-CT : 30 9896644 Pending 11/16/2016 Appointment: Nirmala Jaramillo WPtel: [address] [place], [place] [phone] RESCHEDULED 11/08/2016 Visit Diagnosis Plan: Other hypertrophic disorders of the skin Discussion: Irritated skin tags excised at base and then bases cauterized ICD-9 : 701.9 ICD-10 : L91.8 10/05/2016 Appointment: Nirmala Jaramillo WPtel: [address] [place], [place] [phone] [phone] confirmed-sp OFFICE SURGERY 10/05/2016 Patient Education: Patient Medication Summary Completed 10/05/2016 Appointment: Nirmala Jaramillo WPtel: [phone] [facility] [place] Per doctor~ 09/09 canceled due to work ~ CANC ELED 09/10/2016 Visit Diagnosis Plan: Other seasonal allergic rhinitis Discussion: As above ICD-9 : 477.9 ICD-10 : J30.2 09/06/2016 Visit Diagnosis Plan: Cough Discussion: Continue zyrte c and singulair Add flonase If persists at [facility] then will see ENT Follow Up: 2 months ICD-9 : 786.2 ICD-10 : R05 09/06/2016 Visit Diagnosis Plan: Abnormal levels of other serum e nzymes Discussion: Update liver enzymes ICD-9 : 790.5 ICD-10 : R74.8 09/06/2016 Appointment: Nirmala Jaramillo WPtel: [facility] [place] [facility] [place] [place] 09/02 lm~ FOLLOW UP 09/06/2016 Patient Education: Patient Medication Summary Completed 09/06/2016 Patient Education: Patient Medication Summary Completed 08/18/2016 Care Plan: ACUTE HEPATITIS PANEL LOINC : 65480-4 Pending 08/18/2016 Care Plan: T[place] DISEASE PANEL [...] R05 08/16/2016 Appointment: Nirmala Jaramillo WPtel: [phone] [facility] [place] 08/13 confirmed ` WORK IN 08/16/2016 Patient Education: Patient Medication Summary Completed 08/16/2016 Care Plan: MAMMOGRAM SCREENING Grandmother Juliane Sahu in late LOINC : 85122-1 Pending 08/16/2016 Patient Education: Patient Medication Summary Completed 07/27/2016 Visit Diagnosis Plan: Acute bronchitis, unspecified Di scussion: Rxs as above Borrow neb machine until home with hers if needed OTC meds reviewed Watch BSs closely Follow up if not improving ICD-9 : 466.0 ICD-10 : J20.9 06/23/2016 Appointment: John Ananya [address] [place] [address] ACUTE ILLNESS 06/23/2016 Patient Education: Patient Medication Summary Completed 06/23/2016 Appointment: Nirmala Jaramillo WPtel: [address] [place] [address] [place] INJECTION 03/09/2016 Patient Education: Patient Medication Summary Completed 03/09/2016 Appointment: Nirmala Jaramillo WPtel: [address] [place] [address] [place] INJECTION 02/16/2016 Visit Plan: Decrease Breo to 100/25mcg 1 p BID for another week Flu shot with Prevnar 13 next week if covered Refill metformin 12/18/2015 Appointment: Nirmala Jaramillo WPtel: [address] [place] [address] 12/16 confirmed`sl FOLLOW UP 12/18/2015 Patient Education: [...] Recheck 1week 12/11/2015 Appointment: Nirmala Jaramillo WPtel: [address] [place] [address] ACUTE ILLNESS 12/11/2015 Patient Education: Patient Medication Summary Completed 12/11/2015 Visit Plan: Patient sounds and appears i mproved Continue mucinex, vit C, breathing treatments, humidifier, vicks, etc CXR on am and will call with report before the weekend Monitor for any return of concerning symptoms - fevers, chills, worsening cough, etc 12/08/2015 Appointment: [facility] [facility] 12/04 Lm~sl....confirmed-sp FOLLOW UP 11/28 Patient Education: [...] to improve 12/01/2015 Appointment: Ananya Lopez [address] [facility] 11/30 lm ~sl NEW PATIENT 12/01/2015 Patient Education: Patient Medication Summary Completed 12/01/2015 Referral: Dhruv Montalvo WPtel: [address] [facility] E [id number] [place] Referral Appointment Requested Referral: Chan Chavez WPtel: [address] [facility] 6 [id number] [place] Referral Completed Referral: Dhruv Lubin WPtel: 107 [facility] [address] Referral Initiated Instructions Comment . Saline [...]
--- OUTSIDE RECORDS SUMMARY | 2019-05-18 13:18 | XMS REPORT | CCD ---
Author Author Veronica Lopez Organization [facility] Address [address] [place] [address] Phone Unavailable Care Team Providers Care Oracle Fusion Developer Name Role Phone Nirmala Jaramillo D.O., PP Unavailable CCM Unavailable Summary Purpose Interface Exchange Insurance Providers Payer name Policy type / Coverage type Covered democrat ID Effective Begin Date Effective End Date [employer] Commercial Insurance [id number] Unknown Family History Family History data not found Social History Social History Element Codes Description Effective Dates Marital status Unknown 12/01/2015 Number of children Unknown 3 12/01/2015 Employment Unknown Currently employed 12/01/[address]: 674067750 Never smoker 12/01/[address]: 842029132 Never drinks alcohol 2015 Allergies, Adverse Reactions, [...] 6.25 mg-codeine 10 mg/5 mL syrup RxNorm: 127613 5 Milliliter(s) Oral Q4H as needed 03/26/2019 No Stop Date Active Trulicity 0.75 mg/0.5 mL subcutaneous pen injector RxNorm: 1 461663 INJECT 1 DOSE SUB-Q ONCE WEEKLY 02/19/2019 03/18/2019 Inactive amlodipine 5 mg tablet RxNorm: 524038 TAKE 1 TABLET BY MOUTH 02/19/2019 05/19/2019 Active Lexapro 20 mg tablet RxNorm: 515371 1 TABLET(S) PO QD 01/04/201905/2019 Active lisinopril 40 mg tablet RxNorm: 182936 1 TABLET(S) PO QD 12/05/2018 0 04/03/2019 Active scopolamine 1 mg over 3 days transdermal patch RxNorm: 45868 2 1 Application Transdermal Q72H 11/27/2018 11/26/2018 Inactive scopolamine 1 mg over 3 days transdermal patch RxNorm: 15305 2 1 Application Transdermal Q72H 11/27/2018 11/27/2018 Inactive ondansetron HCl 4 mg tablet RxNorm: 741434 1 Tablet(s) Oral Q4H as needed for nausea 11/27/2018 11/27/2018 Inactive ondansetron HCl 4 mg tablet RxNorm: 957968 1 Tablet(s) Oral Q4H as needed for nausea 11/27/2018 11/26/2018 Inactive amlodipine 5 mg tablet RxNorm: 392388 1 TABLET(S) PO QD 11/20/2018 Inactive Xanax 0.25 mg tablet RxNorm: 330833 1 Tablet(s) PO as needed 2018 No Stop Date Active ProAir HFA 90 mcg/actuation aerosol inhaler RxNorm: 636003 2 Puff(s) INH Q4H as needed 10/31/2018 No Stop Date Active if insurance das s not cover, please switch to formerly [facility], [facility]1983. prednisone 20 mg tablet RxNorm: 365420 1 Tablet(s) PO BID 10/31/2018 11/04/2018 Inactive Zithromax Z-Ab 250 mg tablet RxNorm: 835313 Tablet(s) take as directed PO 10/31/2018 01/22/2019 Inactive Trulicity 0.75 mg/0.5 mL subcutaneous pen injector RxNorm: 1 478873 1 Unit Dose SQ QW 10/31/2018 02/18/2019 Inactive Ozempic 0.25 mg or 0.5 mg (2 mg/1.5 mL) subcutaneous p en injector RxNorm: 3648523 0.5 Milligram(s) SQ QW 10/09/2018 10/30/2018 Inactive Ozempic 0.25 mg or 0.5 mg (2 mg/1.5 mL) subcutaneous p en injector RxNorm: 3386851 0.5 Gram(s) SQ QW 10/05/2018 10/08/2018 Inactive lisinopril 40 mg tablet RxNorm: 826721 1 Tablet(s) PO QD 09/18/2018 1 Inactive metformin 1,000 mg tablet RxNorm: 141301 1 TABLET(S) PO QD 09/07/19 19 03/04/2019 Inactive Trulicity 0.75 mg/0.5 mL subcutaneous pen injector RxNorm: 1 268572 0.75 Milligram(s) SQ QW Replaces Ozemic 08/28/2018 10/30/2018 Inactive replaces Ozempic Ozempic 0.25 mg or 0.5 mg (2 mg/1.5 mL) subcutaneous p en injector RxNorm: 0389372 0.5 Milligram(s) SQ WEEKLY 08/28/2018 10/05/2018 Inactive metformin 1,000 mg tablet RxNorm: 644750 1 Tablet(s) PO QD 08/24/1909/05/2018 Inactive Ozempic 0.25 mg or 0.5 mg (2 mg/1.5 mL) subcutaneous p en injector RxNorm: 3983581 0.5 Milligram(s) SQ WEEKLY 08/03/2018 08/27/2018 Inactive amlodipine 5 mg tablet RxNorm: 146017 1 Tablet(s) PO QD 07/25/2018 Inactive Lexapro 20 mg tablet RxNorm: 182943 1 Tablet(s) PO QD 07/10/201807/2018 Inactive lisinopril 40 mg tablet RxNorm: 157421 1 Tablet(s) PO QD 07/10/2018 0 09/07/2018 Inactive amlodipine 5 mg tablet RxNorm: 574039 1 Tablet(s) PO QD 06/22/2018 Inactive lisinopril 40 mg tablet RxNorm: 964663 1 Tablet(s) PO QD 06/22/2018 0 07/09/2018 Inactive lisinopril 20 mg tablet RxNorm: 830744 1 Tablet(s) PO QD 06/19/2018 0 06/21/2018 Inactive lisinopril 5 mg tablet RxNorm: 030905 1 Tablet(s) PO QD 06/13/2018 Inactive metformin 1,000 mg tablet RxNorm: 795835 Tablet(s) TABLET(S) 1 TABLET(S) PO QD 06/08/2018 08/22/2018 Inactive Tamiflu 75 mg capsule RxNorm: 448372 1 Capsule(s) PO BID 04/26/2018 0 04/30/2018 Inactive Tamiflu 75 mg capsule RxNorm: 271988 1 Capsule(s) PO BID 04/26/2018 0 04/25/2018 Inactive prednisone 10 mg tablet RxNorm: 014047 1 Tablet(s) PO TID 04/25/2018 04/29/2018 Inactive prednisone 20 mg tablet RxNorm: 287760 1 Tablet(s) PO BID 04/14/2018 04/20/2018 Inactive Augmentin 500 mg-125 mg tablet RxNorm: 797286 1 Tablet(s) PO BID 04/20/2018 Inactive metformin 1,000 mg tablet RxNorm: 509737 TABLET(S) 1 TABLET(S) PO Q D 03/09/2018 06/06/2018 Inactive celecoxib 200 mg capsule RxNorm: 642518 1 Capsule(s) PO BID for diana n 01/31/2018 03/01/2018 Inactive metformin 1,000 mg tablet RxNorm: 560457 1 Tablet(s) PO BID 018 No Stop Date Active Medrol (Ab) 4 mg tablets in a dose pack RxNorm: 735402 Tablet(s) PO take as directed 01/23/2018 01/30/2018 Inactive Lexapro 20 mg tablet RxNorm: 680754 Tablet(s) 1 TABLET(S) PO QD 06/21/2018 Inactive Lexapro 20 mg tablet RxNorm: 357235 Tablet(s) 1 TABLET(S) PO QD 07/201701/22/2018 Inactive metformin 1,000 mg tablet RxNorm: 945097 1 Tablet(s) PO BID 018 01/22/2018 Inactive Lexapro 20 mg tablet RxNorm: 144199 Tablet(s) 1 TABLET(S) PO QD 11/02/2017 Inactive metformin 1,000 mg tablet RxNorm: 130787 Tablet(s) 1 TABLET(S) PO Q D 09/22/2017 09/26/2017 Inactive Xanax 0.25 mg tablet RxNorm: 742032 1 Tablet(s) PO as needed 201710/30/2018 Inactive metformin 1,000 mg tablet RxNorm: 069194 Tablet(s) 1 TA BLET(S) PO QD NEEDS UPDATED LABS 09/06/2017 09/20/2017 Inactive metformin 1,000 mg tablet RxNorm: 037102 1 TABLET(S) PO QD NEED S UPDATED LABS 08/24/2017 09/05/2017 Inactive metformin 1,000 mg tablet RxNorm: 465394 1 Tablet(s) PO QD Need s updated labs 08/08/2017 08/22/2017 Inactive Lexapro 20 mg tablet RxNorm: 425185 1 TABLET(S) PO QD 07/17/201708/29 Inactive pseudoephedrine 30 mg tablet RxNorm: 5577160 1-2 Tablet(s) PO Q6H 0 07/05/2017 06/12/2018 Inactive Augmentin 875 mg-125 mg tablet RxNorm: 086037 1 Tablet(s) PO BID 07/14/2017 Inactive metformin 1,000 mg tablet RxNorm: 775077 1 Tablet(s) PO QD Need s updated labs 07/04/2017 08/08/2017 Inactive metformin 1,000 mg tablet RxNorm: 127883 1 Tablet(s) PO QD Need s updated labs 05/30/2017 07/04/2017 Inactive Levaquin 750 mg tablet RxNorm: 404172 1 Tablet(s) PO QD 03/04/2017 Inactive ProAir HFA 90 mcg/actuation aerosol inhaler RxNorm: 557489 2 Puff(s) INH Q4H as needed 03/04/2017 07/04/2017 Inactive if insurance das s not cover, please switch to ventolin. Tamiflu 75 mg capsule RxNorm: 241891 1 Capsule(s) PO QD 03/04/2017 Inactive metformin 1,000 mg tablet RxNorm: 553034 1 Tablet(s) PO QD 02/16/20 17 05/15/2017 Inactive Lexapro 20 mg tablet RxNorm: 822458 1 Tablet(s) PO QD 01/17/201707/2017 Inactive cephalexin 500 mg capsule RxNorm: 114389 1 Capsule(s) PO TID 201612/08/2016 Inactive pantoprazole 40 mg tablet,delayed release RxNorm: 307571 1 Tabl et(s) PO QD 11/16/2016 03/15/2017 Inactive metformin 1,000 mg tablet RxNorm: 141128 TAKE 1 TABLET BY MOUTH EVERY DAY 10/10/2016 02/15/2017 Inactive Flonase Allergy Relief 50 mcg/actuation nasal spray,suspensi on RxNorm: 5047676 2 [place] NASAL QHS 09/06/2016 11/15/2016 Inactive Singulair 10 mg tablet RxNorm: 220511 1 Tablet(s) PO QHS 09/06/2016 0 11/15/2016 Inactive Singulair 10 mg tablet RxNorm: 159652 1 Tablet(s) PO QHS 08/12/2016 0 09/05/2016 Inactive ProAir HFA 90 mcg/actuation aerosol inhaler RxNorm: 507264 1 Puff(s) INH Q4H as needed 08/12/2016 08/15/2016 Inactive Medrol (Ab) 4 mg tablets in a dose pack RxNorm: 059479 Tablet(s) PO As Directed 07/29/2016 08/15/2016 Inactive Lexapro 20 mg tablet RxNorm: 968381 1 Tablet(s) PO QD 07/06/201612/30 Inactive doxycycline hyclate 100 mg capsule RxNorm: 8990097 1 Capsule(s) PO BID 06/24/2016 06/23/2016 Inactive doxycycline hyclate 100 mg capsule RxNorm: 2700439 1 Capsule(s) PO BID 06/24/2016 07/03/2016 Inactive ProAir HFA 90 mcg/actuation aerosol inhaler RxNorm: 048870 1 Puff(s) INH Q4H as needed 06/23/2016 08/11/2016 Inactive prednisone 20 mg tablet RxNorm: 736854 1 Tablet(s) PO BID 06/23/2016 06/27/2016 Inactive metformin 1,000 mg tablet RxNorm: 985528 1 Tablet(s) PO QD 12/18/19 16 06/14/2016 Inactive Lexapro 20 mg tablet RxNorm: 830280 1 Tablet(s) PO QD 12/18/201510/2016 Inactive prednisone 20 mg tablet RxNorm: 628114 Take 3 tabs PO Q D x 3 days, then 2 tabs PO QD x 3 days, then 1 tab PO QD x 3 days 12/01/2015 12/10/2015 Inacti ve albuterol sulfate 2.5 mg/3 mL (0.083 %) solution for n ebulization RxNorm: 894275 3 Milliliter(s) INH Q4H as needed 12/01/2015 07/04/2017 Inactiv e Singulair 10 mg tablet RxNorm: 949176 1 Tablet(s) PO QHS No Start D ate 08/11/2016 Inactive Breo Ellipta 100 mcg-25 mcg/dose powder for inhalation RxNor m: 5104428 1 Puff(s) INH QD No Start Date 02/01/2017 Inactive Zyrtec 10 mg tablet RxNorm: 5067069 1 Tablet(s) PO QAM No Start Date 11/15/2016 Inactive Xanax 0.25 mg tablet RxNorm: 250038 1 Tablet(s) PO as needed No Sta rt Date 09/21/2017 Inactive metformin 1,000 mg tablet RxNorm: 475104 1 Tablet(s) PO QD No Start Date 12/17/2015 Inactive Singulair 10 mg tablet RxNorm: 889011 1 Tablet(s) PO QHS No Start D ate 11/15/2016 Inactive metformin 1,000 mg tablet RxNorm: 051706 1 Tablet(s) PO QD No Start Date 02/14/2017 Inactive metformin 1,000 mg tablet RxNorm: 327789 1 Tablet(s) PO BID No Star t Date 09/26/2017 Inactive Trulicity 0.75 mg/0.5 mL subcutaneous pen injector RxNorm: 1 570962 0.75 Milligram(s) SQ QW No Start Date 08/27/2018 Inactive Medrol (Ab) 4 mg tablets in a dose pack RxNorm: 242114 Tablet(s) PO As Directed No Start Date 07/28/2016 Inactive Lexapro 20 mg tablet RxNorm: 058998 1 Tablet(s) PO QD No Start Date 1 Inactive Lexapro 20 mg tablet RxNorm: 576967 1 Tablet(s) PO QD No Start Date 0 07/09/2018 Inactive Medication Administered No Medication Administered data Immunizations Vaccine Codes Date Status Tetanus, Diptheria, Pertussis CVX: 115 11/30/2016 Co mplete Pneumococcal CVX: 133 03/09/2016 Complete Results Observation Observation Code Item Item Code Result Date S vice Location VIRAL HEPATITIS PROFILE #2 92424 Hep A IgM Non-Reactive 06/20/2018 Unknown VIRAL HEPATITIS PROFILE #2 93802 Hep B Core IgM Non-Reac tive 06/20/2018 Unknown VIRAL HEPATITIS PROFILE #2 99037 Hepatitis C Ab Non-Reac tive 06/20/2018 Unknown VIRAL HEPATITIS PROFILE #2 98218 Hep Bs Ag Non-Reactive 06/20/2018 Unknown MEAN GLUC 8714418 Calc Mean Gluc 194 mg/dL 06/19/2018 Unkn own COMPREHENSIVE METABOLIC 69346 AST 94 U/L 2018 Unknown COMPREHENSIVE METABOLIC 79215 ALT 160 U/L 2018 Unknown COMPREHENSIVE METABOLIC 62787 BUN 9 mg/dL 2018 Unknown COMPREHENSIVE METABOLIC 00321 ALBUMIN 4.6 g/dL 2018 Unknown COMPREHENSIVE METABOLIC 20338 CHLORIDE 101 mmol/L 06/19 Unknown COMPREHENSIVE METABOLIC 72402 Bili Total 0.9 mg/dL 06/19 Unknown COMPREHENSIVE METABOLIC 30125 ALK PHOS 64 U/L 2018 Unknown COMPREHENSIVE METABOLIC 41689 SODIUM 136 mmol/L 06/19 Unknown COMPREHENSIVE METABOLIC 47198 CREATININE 0.58 mg/dL 05/30 Unknown COMPREHENSIVE METABOLIC 25191 CALCIUM 10.3 mg/dL 06/19 Unknown COMPREHENSIVE METABOLIC 99062 POTASSIUM 3.7 mmol/L 06/19 Unknown COMPREHENSIVE METABOLIC 33969 Total Protein 7.1 g/dL Unknown COMPREHENSIVE METABOLIC 98997 Glucose 187 mg/dL 2018 Unknown COMPREHENSIVE METABOLIC 12416 Bicarbonate 26 mmol/L 05/30 Unknown COMPREHENSIVE METABOLIC 49133 AGAP 9 mmol/L 2018 Unknown GLYCOSYLATED HEMOGLOBIN TEST 85624 Hgb A1c 82433-2 8.4 % 0 06/19/2018 Unknown COMPLETE BLOOD COUNT 4901144 WBC 6.2 10e9/L 06/20/19 19 Unknown COMPLETE BLOOD COUNT 3334854 RBC 4.70 10e12/L 2018 Unknown COMPLETE BLOOD COUNT 4968542 HEMOGLOBIN 13.4 g/dL 06/20/19 19 Unknown COMPLETE BLOOD COUNT 6094480 HEMATOCRIT 39.9 % 06/20/19 19 Unknown COMPLETE BLOOD COUNT 5523376 MCV 84.9 fL 9 Unknown COMPLETE BLOOD COUNT 2751686 MCH 28.5 pg 9 Unknown COMPLETE BLOOD COUNT 2251679 MCHC 33.6 g/dL 9 Unknown COMPLETE BLOOD COUNT 0166700 PLATELET COUNT 252 10e9/L Unknown COMPLETE BLOOD COUNT 9647647 Mean Plt Volume 12.2 fL Unknown COMPLETE BLOOD COUNT 1435147 Neut Auto 53.9 % 9 Unknown COMPLETE BLOOD COUNT 0299749 Lymph Auto 35.2 % 06/20/19 19 Unknown COMPLETE BLOOD COUNT 1454441 [place] Auto 7.1 % 9 Unknown COMPLETE BLOOD COUNT 5298890 RDW 14.1 % 9 Unknown COMPLETE BLOOD COUNT 4040926 Eos Auto 3.2 % 9 Unknown COMPLETE BLOOD COUNT 9438359 Baso Auto 0.6 % 9 Unknown COMPLETE BLOOD COUNT 7960687 Neutrophil Abs 3.34 10e9/L Unknown COMPLETE BLOOD COUNT 8948069 Lymphocyte Abs 2.18 10e9/L Unknown COMPLETE BLOOD COUNT 1270031 Monocyte Abs 0.44 10e9/L 05/30 Unknown COMPLETE BLOOD COUNT 2650243 Eosinophil Abs 0.20 10e9/L Unknown COMPLETE BLOOD COUNT 9283492 RDW-SD 42.7 fL 9 Unknown COMPLETE BLOOD COUNT 1389510 Basophil Abs 0.04 10e9/L 05/30 Unknown THYROID STIMULATING HORMONE 58259 TSH 1.976 uIU/mL 06/19/2018 Unknown GFR CALC 7121170 GFR Non Afr Amr >60 mL/min 06/19/2018 Un known GFR CALC 4676236 GFR Afr Amr >60 mL/min 06/19/2018 Unknow n SURESWAB(R), BACTERIAL VAGINOSIS/VAGINITIS 86257 BV CATEGORY: TNP 09/27/2017 [facility] [address] [place] [address] SURESWAB(R), BACTERIAL VAGINOSIS/VAGINITIS 76781 LACTOBACILLUS S PECIES DNR 09/27/2017 [facility] [address] [place] [address] SURESWAB(R), BACTERIAL VAGINOSIS/VAGINITIS 46791 ATOPOBIUM VAGIN AE DNR 09/27/2017 [facility] [address] [place] [address] SURESWAB(R), BACTERIAL VAGINOSIS/VAGINITIS 26193 MEGASPHAERA SPE CIES DNR 09/27/2017 [facility] [address] [facility] [address] SURESWAB(R), BACTERIAL VAGINOSIS/VAGINITIS 41546 GARDNERELLA VAG INALIS DNR 09/27/2017 [facility] [address] [place] [address] SURESWAB(R), BACTERIAL VAGINOSIS/VAGINITIS 53815 SURESWAB(R) TRICHOMONAS VAGINALIS RNA, QL TMA TNP 09/27/2017 [facility] [address] [facility] [place] [address] SURESWAB(R), BACTERIAL VAGINOSIS/VAGINITIS 75119 C. ALBICANS, DN A TNP 09/27/2017 [facility] [address] [facility] [place] [address] SURESWAB(R), BACTERIAL VAGINOSIS/VAGINITIS 80745 C. GLABRATA, DN A DNR 09/27/2017 [facility] [address] [place] [address] SURESWAB(R), BACTERIAL VAGINOSIS/VAGINITIS 94997 C. TROPICALIS, DNA DNR 09/27/2017 [facility] [address] SURESWAB(R), BACTERIAL VAGINOSIS/VAGINITIS 55626 C. PARAPSILOSIS , DNA DNR 09/27/2017 [facility] [address] [place] [address] THINPREP TIS AND HPV mRNA E6/E7 60148 REPORT STATUS: DNR 09/27/2017 [facility] [address] [place] [address] THINPREP TIS AND HPV mRNA E6/E7 31048 CLINICAL INFORMATION: 09/27/2017 [facility] [address] [place] [address] THINPREP TIS AND HPV mRNA E6/E7 60078 LMP: 201709/27/[address] [place] [address] [address] THINPREP TIS AND HPV mRNA E6/E7 34150 PREV. PAP: 09/27/[address] [place] [address] [address] THINPREP TIS AND HPV mRNA E6/E7 66463 PREV. BX: 09/27/2017 [place] [address] THINPREP TIS AND HPV mRNA E6/E7 09970 SOURCE: Cerv ix 09/27/2017 [place] [address] THINPREP TIS AND HPV mRNA E6/E7 63724 STATEMENT OF ADEQUACY: 09/27/2017 [place] [address] THINPREP TIS AND HPV mRNA E6/E7 55745 GENERAL CATEGORIZATION: DNR 09/27/2017 [place] [address] THINPREP TIS AND HPV mRNA E6/E7 30280 INTERPRETATION/RESULT: 09/27/2017 [place] [address] THINPREP TIS AND HPV mRNA E6/E7 03509 INFECTION: DNR 09/27/2017 [place] [address] THINPREP TIS AND HPV mRNA E6/E7 28824 COMMENT: 09/27/2017 [place] [address] THINPREP TIS AND HPV mRNA E6/E7 75766 MOUNT LOADER: 09/27/2017 [place] [address] THINPREP TIS AND HPV mRNA E6/E7 64757 REVIEW MOUNT LOADER: DNR 09/27/2017 [place] [address] THINPREP TIS AND HPV mRNA E6/E7 82495 PATHOLOGIST: KHLOE Srivastava 09/27/2017 [facility] [address] [place] [address] THINPREP TIS AND HPV mRNA E6/E7 89576 COMMENT 09/27/2017 [facility] [address] [place] [address] THINPREP TIS AND HPV mRNA E6/E7 60914 HPV mRNA E6/E7 Not Detected 09/27/2017 [facility] [address] [place] [address] CULTURE, GENITAL 19234 CULTURE, GENITAL SEE NOTE [facility] [address] [place] [address] CULTURE, THROAT 66159 CULTURE, THROAT SEE NOTE 07/30 [facility] [place] [address] Procedures Procedure Codes Date INFLUENZA ASSAY W/OPTIC CPT-4: 53584 03/26/2019 DEXAMETHASONE SODIUM PHOS CPT-4: J1100 03/26/2019 THER/PROPH/DIAG INJ SC/IM CPT-4: 63322 03/26/2019 TRIAMCINOLONE ACET INJ NOS CPT-4: J3301 03/26/2019 DRAIN/INJECT JOINT/BURSA CPT-4: 45169 01/23/2019 ROUTINE VENIPUNCTURE CPT-4: 08640 06/19/2018 COMPLETE CBC W/AUTO DIFF WBC CPT-4: 34372 06/19/2018 COMPREHEN METABOLIC PANEL CPT-4: 21358 06/19/2018 A1C HPLC CPT-4: 58249 06/19/2018 ASSAY THYROID STIM HORMONE CPT-4: 82882 06/19/2018 URINALYSIS NONAUTO W/O SCOPE CPT-4: 07218 06/19/2018 ACUTE HEPATITIS PANEL CPT-4: 02891 06/19/2018 INFLUENZA ASSAY W/OPTIC CPT-4: 99600 04/26/2018 STREP A ASSAY W/OPTIC CPT-4: 61341 04/25/2018 THROAT CULTURE CPT-4: 28908 04/25/2018 CEFTRIAXONE SODIUM INJECTION CPT-4: J0696 11/10/2017 DEXAMETHASONE SODIUM PHOS CPT-4: J1100 11/10/2017 THER/PROPH/DIAG INJ SC/IM CPT-4: 87720 11/10/2017 TRIAMCINOLONE ACET INJ NOS CPT-4: J3301 11/10/2017 OCCULT BLOOD FECES CPT-4: 21408 09/22/2017 SURESWAB(R), BACTERIAL VAGINOSIS/VAGINITIS CPT-4: 82944 09/22/2017 CULTURE, GENITAL CPT-4: 37035 09/22/2017 TDAP VACCINE 7 YRS/> IM CPT-4: 19100 11/30/2016 IMMUNIZATION ADMIN CPT-4: 08237 11/30/2016 REMOVAL OF FOOT FOREIGN BODY CPT-4: 02139 11/29/2016 REMOVAL OF SKIN TAGS <W/15 CPT-4: 84159 10/05/2016 CULTURE, THROAT CPT-4: 13873 08/16/2016 PNEUMOCOCCAL VACC 13 AYSHA IM CPT-4: 31734 03/09/2016 IMMUNIZATION ADMIN CPT-4: 83973 03/09/2016 THER/PROPH/DIAG INJ SC/IM CPT-4: 58660 12/11/2015 TRIAMCINOLONE ACET INJ NOS CPT-4: J3301 [...] 1: 126/84 Code: 8480-6 BMI: 39.9 Code: 51581-9 Heart Rate 1: 80 bpm Height: 5'2" [...] 1: 126/82 Code: 8480-6 BMI: 40.6 Code: 03204-1 Heart Rate 1: 72 bpm Height: 5'2" [...] 1: 124/68 Code: 8480-6 BMI: 41.7 Code: 96363-2 Heart Rate 1: 66 bpm Height: 5'2" Respiratory Rate: 20 bpm SpO2: 98% Tempera ture: 36.2 (C) / 97.2 (F) Weight: 228 lbs 09/22/2017 Blood Pressure 1: 142/80 Code: 8480-6 BMI: 41.3 Code: 93777-4 Heart Rate 1: 60 bpm Height: 5'2" Respiratory Rate: 20 bpm SpO2: 98% Tempera ture: 36.3 (C) / 97.3 (F) Weight: 226 lbs 07/05/2017 Blood Pressure 1: 129/82 Code: 8480-6 BMI: 42.3 Code: 15576-4 Heart Rate 1: 60 bpm Height: 5'2" SpO2: 97% Temperature: 36.4 (C) / 97.6 (F) Weight: 231 lbs 03/04/2017 Blood Pressure 1: 142/80 Code: 8480-6 BMI: 42.4 Code: 79098-1 Heart Rate 1: 74 bpm Height: 5'2" Respiratory Rate: 24 bpm SpO2: 97% Tempera ture: 36.4 (C) / 97.6 (F) Weight: 232 lbs 02/02/2017 Blood Pressure 1: 146/82 Code: 8480-6 BMI: 42.4 Code: 61344-0 Heart Rate 1: 84 bpm Height: 5'2" Respiratory Rate: 20 bpm SpO2: 98% Tempera ture: 36.6 (C) / 97.9 (F) Weight: 232 lbs 11/29/2016 Blood Pressure 1: 12678 Code: 8480-6 Heart Rate 1: 76 bpm Height: 5'2" Respiratory Rate: 20 bpm SpO2: 96% Temperature: 36 .9 (C) / 98.4 (F) 11/16/2016 Blood Pressure 1: 136/94 Code: 8480-6 BMI: 42.6 Code: 16810-7 Heart Rate 1: 68 bpm Height: 5'2" Respiratory Rate: 20 bpm SpO2: 96% Tempera ture: 36.9 (C) / 98.4 (F) Weight: 233 lbs 10/05/2016 Blood Pressure 1: 112/78 Code: 8480-6 BMI: 41.5 Code: 50929-5 Heart Rate 1: 80 bpm Height: 5'2" Respiratory Rate: 20 bpm SpO2: 97% Tempera ture: 36.8 (C) / 98.2 (F) Weight: 227 lbs 09/06/2016 Blood Pressure 1: 126/82 Code: 8480-6 BMI: 42.4 Code: 20526-3 Heart Rate 1: 64 bpm Height: 5'2" Respiratory Rate: 20 bpm SpO2: 98% Tempera ture: 37.0 (C) / 98.6 (F) Weight: 232 lbs 08/16/2016 Blood Pressure 1: 136/82 Code: 8480-6 BMI: 42.1 Code: 37758-0 Heart Rate 1: 72 bpm Height: 5'2" [...] 1: 144/80 Code: 8480-6 BMI: 40.4 Code: 86974-7 Heart Rate 1: 92 bpm Height: 5'2" Respiratory Rate: 20 bpm SpO2: 95% Tempera ture: 36.8 (C) / 98.2 (F) Weight: 221 lbs 12/08/2015 Blood Pressure 1: 124/78 Code: 8480-6 Heart Rate 1: 108 bpm Height: 5'2" Respiratory Rate: 22 bpm SpO2: 95% Temperature: 36.2 (C) / 97.2 (F) Weight: 12/01/2015 Blood Pressure 1: 124/78 Code: 8480-6 BMI: 40.4 Code: 59973-2 Heart Rate 1: 92 bpm Height: 5'2" [...] leg cough 11/10/2017 patient was seen at [facility] and given Levaquin and 5 [...] care Encounters Encounter Performer Location Codes Date (84676) OFFICE/OUTPATIENT VISIT EST Diagnosis: Upper respiratory infection[ICD10: J06.9] Lisbeth JARAMILLO [facility] CPT-4: 54671 03/26/2019 ([id number]) OFFICE/OUTPATIENT VISIT EST Diagnosis: Acute upper respiratory infection, unspecified[ICD10: J06.9] Diagnosis: Generalized anxiety disorder[ICD10: F41.1] Diagnosis: Type 2 diabetes mellitus with hyperglycemia[ICD10: E11.65] Diagnosis: Encounter for therapeutic drug level monitoring[ICD10: Z51.81] Lisbeth Murguia [facility] CPT-4: 69901 10/31/2018 ([id number]) OFFICE/OUTPATIENT VISIT EST Diagnosis: Type 2 diabetes mellitus with hyperglycemia[ICD10: E11.65] Diagnosis: Essential (primary) hypertension[ICD10: I10] Nirmala Murguia [facility] CPT-4: 92976 08/08/2018 ([id number]) OFFICE/OUTPATIENT VISIT EST Diagnosis: Essential (primary) hypertension[ICD10: I10] Diagnosis: Type 2 diabetes mellitus with hyperglycemia[ICD10: E11.65] Diagnosis: Other fatigue[ICD10: R53.83] Nirmala JARAMILLO [employer] [facility] CPT-4: 88396 07/06/2018 ([id number]) OFFICE/OUTPATIENT VISIT EST Diagnosis: Dizziness and giddiness[ICD10: R42] Diagnosis: Elevated blood-pressure reading, without diagnosis of hypertension[ICD10: R03.0] Shell JARAIMLLO [employer] [facility] CPT- 4: 14760 06/19/2018 ([id number]) OFFICE/OUTPATIENT VISIT EST Diagnosis: Essential (primary) hypertension[ICD10: I10] Diagnosis: Dizziness and giddiness[ICD10: R42] Shell JARAMILLO [employer] CPT-4: 93930 06/13/2018 ([id number]) NURSE/OUTPATIENT VISIT EST Diagnosis: Influenza due to identified novel influenza A virus with other manifestations[ICD10: J09.X9] Nirmala JARAMILLO [employer] [facility] CPT-4: 40994 04/26/2018 OFFICE/OUTPATIENT VISIT EST Diagnosis: Pain in throat[ICD10: R07.0] Diagnosis: Acute pharyngitis, unspecified[ICD10: J02.9] Shell JARAMILLO [employer] [facility] CPT-4: 15716 04/25/2018 ([id number]) OFFICE/OUTPATIENT VISIT EST Diagnosis: Acute sinusitis, unspecified[ICD10: J01.90] Diagnosis: Paresthesia of skin[ICD10: R20.2] Nirmala ORNELASDAMON Yee Shantal JARAMILLO [employer] [facility] CPT-4: 62784 04/14/2018 ([id number]) OFFICE/OUTPATIENT VISIT EST Diagnosis: Pain in right leg[ICD10: M79.604] Diagnosis: Sciatica, right side[ICD10: M54.31] Nirmala JARAMILLO [employer] CPT-4: 87958 01/31/2018 ([id number]) OFFICE/OUTPATIENT VISIT EST Diagnosis: Pain in right leg[ICD10: M79.604] Lisbeth JARAMILLO DO [facility] CPT-4: 27437 01/23/2018 ([id number]) OFFICE/OUTPATIENT VISIT EST Diagnosis: Acute bronchitis, unspecified[ICD10: J20.9] Lisbeth JARAMILLO DO [facility] CPT-4: 82136 11/10/2017 ([id number]) PREV VISIT EST AGE 40-64 Diagnosis: Encounter [...] Nonalcoholic steatohepatitis (MOORE)[ICD10: K75.81] Lisbeth JARAMILLO DO [facility] CPT-4: 03876 09/22/2017 ([id number]) OFFICE/OUTPATIENT VISIT EST Diagnosis: Acute sinusitis, unspecified[ICD10: J01.90] Lisbeth JARAMILLO DO [facility] CPT-4: 77068 07/05/2017 OFFICE/OUTPATIENT VISIT EST Diagnosis: Pneumonia, unspecified organism[ICD10: J18.9] Lisbeth JARAMILLO DO [facility] CPT-4: 28842 03/04/2017 ([id number]) OFFICE/OUTPATIENT VISIT EST Diagnosis: Polycystic ovarian syndrome[ICD10: E28.2] Diagnosis: Abnormal levels of other serum enzymes[ICD10: R74.8] Diagnosis: Nonalcoholic steatohepatitis (MOORE)[ICD10: K75.81] Diagnosis: Impaired glucose tolerance (oral)[ICD10: R73.02] Nirmala JARAMILLO DO [facility] CPT-4: 78391 02/02/2017 ([id number]) OFFICE/OUTPATIENT VISIT EST Diagnosis: VACCINE FOR TDAP[ICD10: Z23] Nirmala JARAMILLO DO [facility] CPT-4: 66730 11/30/2016 ([id number]) OFFICE/OUTPATIENT VISIT EST Diagnosis: Cough[ICD10: R05] Diagnosis: Abnormal levels of other serum enzymes[ICD10: R74.8] Diagnosis: Family history of other endocrine, nutritional and metabolic diseases[ICD10: Z83.49] Nirmala JARAMILLO DO [facility] CPT-4: 86229 11/16/2016 ([id number]) OFFICE/OUTPATIENT VISIT EST Diagnosis: Cough[ICD10: R05] Diagnosis: Other seasonal allergic rhinitis[ICD10: J30.2] Diagnosis: Abnormal levels of other serum enzymes[ICD10: R74.8] Nirmala JARAMILLO DO [facility] CPT-4: 44695 09/06/2016 ([id number]) OFFICE/OUTPATIENT VISIT EST Diagnosis: Cough[ICD10: R05] Diagnosis: Polycystic ovarian syndrome[ICD10: E28.2] Nirmala JARAMILLO DO [facility] CPT-4: 37064 08/16/2016 ([id number]) OFFICE/OUTPATIENT VISIT EST Diagnosis: Acute bronchitis, unspecified[ICD10: J20.9] Diagnosis: Acute upper respiratory infection, unspecified[ICD10: J06.9] Ananya John JARAMILLO [facility] CPT-4: 73356 06/23/2016 ([id number]) OFFICE/OUTPATIENT VISIT EST Diagnosis: PNEUMOCOCCAL VACCINE[ICD10: Z23] Nirmala JARAMILLO DO [facility] CPT-4: 41404 03/09/2016 ([id number]) OFFICE/OUTPATIENT VISIT EST Diagnosis: Pneumonia, unspecified organism[ICD10: J18.9] Diagnosis: Polycystic ovarian syndrome[ICD10: E28.2] Diagnosis: Generalized anxiety disorder[ICD10: F41.1] Nirmala JARAMILLO DO [facility] CPT-4: 25305 12/18/2015 ([id number]) OFFICE/OUTPATIENT VISIT EST Diagnosis: Cough[ICD10: R05] Diagnosis: Acute bronchospasm[ICD10: J98.01] Nirmala WHITINGWESLY JARAMILLO [facility] CPT-4: 00624 12/11/2015 ([id number]) OFFICE/OUTPATIENT VISIT EST Diagnosis: Pneumonia, unspecified organism[ICD10: J18.9] Ananya JARAMILLO DO [facility] CPT-4: 58949 12/08/2015 OFFICE/OUTPATIENT VISIT NEW Diagnosis: Pneumonia, unspecified organism[ICD10: J18.9] Ananya JARAMILLO [facility] CPT-4: 96404 12/01/2015 Plan of Care Planned Activity Notes [...] M76.41 01/23/2019 Appointment: [facility]irm[phone] [facility] [facility] 01/23/2019 Care Plan: Referral Order SNOMED-CT : 30 [id number] Pending 01/23/2019 Visit Diagnosis Plan: Type 2 [...] ICD-10 : F41.1 10/31/2018 Appointment: Lisbeth Kruger [address] [place], [place] [id number] ACUTE ILLNESS 10/31/2018 Patient Education: Trulicity- OptimizeRX Coupon [id number] https://www.Heckyl/sampleNewdea/resources/getResource/61/y716r5p0-q658-8d17-ku Completed 10/31/2018 Patient Education: Xanax- OptimizeRX Coupon [id number] https://www.Heckyl/sampleNewdea/resources/getResource/61/ic42362e-0721-03g1-so b2-322w408e8962.pdf Completed 10/31/2018 Patient Education: prednisone- OptimizeRX Coupon 22102 [id number] https://www.Heckyl/sampleNewdea/resources/getResource/61/981wx595-0200-67s6-77 Completed 10/31/2018 Patient Education: ProAir HFA- OptimizeRX Coupon [id number] https://www.Heckyl/sampleNewdea/resources/getResource/61/4ao69793-84u8-1396-26 Completed 10/31/2018 Visit Diagnosis Plan: Type 2 diabetes mellitus with hy perglycemia Discussion: Lab discussed Accuchecks daily Continue current meds Check CMP and HbA1C end of September then fwup ICD-9 : 250.02 ICD-10 : E11.65 08/08/2018 Visit Diagnosis Plan: Essential (primary) hypertension Discussion: Stable ICD-9 : 401.9 ICD-10 : I10 08/08/2018 Appointment: Nirmala [facility]illo [facility]Ptel[facility] [phone] [facility] [facility] 08/08/2018 Visit Diagnosis Plan: [...] : E11.65 07/06/2018 Appointment: Nirmala Jaramillo WPtel: [address] [place], [place] [address] FOLLOW UP 07/06/2018 Appointment: Nirmala Jaramillo WPtel: [address] [place], [place] [phone] [place] Consult 06/22/2018 Patient Education: lisinopril- OptimizeRX Coupon [id number] https://www.NuHabitat.MagTag/samplemd/resources/getResource/61/858h36h6-tgu4-5722-ah Completed 06/22/2018 Visit Diagnosis Plan: Dizziness and giddiness Discussi on: Recommend scheduling appt with derrick man. ICD-9 : 780.4 ICD-10 : R42 06/19/2018 Visit Diagnosis Plan: Essential (primary) hypertension Discussion: Increased lisinopril from 5 QD to 20 mg QD. Labs today- CBC, CMP, TSH, A1C. UA today- trace protein. hematuria (patient on period). ICD-9 : 401.9 ICD-10 : I10 06/19/2018 Appointment: Shell Vega [address] [employer] [id number] FOLLOW UP 06/19/2018 Visit Diagnosis Plan: Dizziness [...] ICD-10 : I10 06/13/2018 Appointment: Shell Vega [address] [place] [address] ACUTE ILLNESS 06/13/2018 Appointment: Nirmala Jaramillo WPtel: [address] [place] [address] [place] FLU SWAB 04/26/2018 Visit Diagnosis Plan: Pain in throat Discussion: Rapid Strep A- negative Throat culture- pending. Will call patient with results. Prednisone 10 mg TID x 5 days. Supportive care- fluids, tylenol for pain, humidified air. ICD-9 : 784.1 ICD-10 : R07.0 04/25/2018 Appointment: Shell Vega [address] [place] [address] ACUTE ILLNESS 04/25/2018 Visit Plan: Saline nasal [...] prn. Tyle... 04/14/2018 Appointment: Nirmala Jaramillo WPtel: [address] [place] [address] ACUTE ILLNESS 04/14/2018 Patient Education: prednisone- OptimizeRX Coupon [id number] https://www.Heckyl/Cellerant Therapeuticsmd/resources/getResource/61/6dfz22aq-u7w3-66z0-e9 Completed 04/14/2018 Visit Diagnosis Plan: Pain in right leg Discussion: Ch dickson right tib/fib x-ray and start celebrex May need PT ICD-9 : 729.5 ICD-10 : M79.604 01/31/2018 Visit Diagnosis Plan: Sciatica, right side Discussion: Check L/S spine x-ray ICD-9 : 724.3 ICD-10 : M54.31 01/31/2018 Appointment: Nirmala Jaramillo WPtel: [phone] [id number] FOLLOW UP 01/31/2018 Care Plan: X-RAY EXAM L-S SPINE 2/3 VWS LOINC : 67819-4 Pending 01/31/2018 Care Plan: X-RAY EXAM OF LOWER LEG LOINC : 82178-8 Pending 01/31/2018 Visit Diagnosis Plan: Pain in [...] : M79.604 01/23/2018 Appointment: Lisbeth Kruger [address] [facility] ACUTE ILLNESS 01/23/2018 Visit Diagnosis Plan: Acute [...] : J20.9 11/10/2017 [facility] [facility] 11/10/2017 Patient Education: Patient Medication Summary Completed 11/10/2017 Care Plan: CHEST X-RAY 2VW FRONTAL&LATL LOINC : 27412-5 Pending 11/10/2017 Patient Education: Patient Medication Summary Completed 09/26/2017 Care Plan: A1C HPLC LOINC : 43545-2 Pending 09/26/2017 Visit Diagnosis Plan: Encounter for scre ening mammogram for malignant neoplasm of breast Discussion: [facility] breast exam performed in office. ICD-9 : V76.11 ICD-10 : Z12.31 09/22/2017 Visit Diagnosis Plan: Impaired glucose tolerance (oral ) Discussion: metformin daily. will update fasting labs and patient to have completed this week or first part of next. ICD-9 : 790.22 ICD-10 : R73.02 09/22/2017 Visit Diagnosis Plan: Encounter for gene [facility] adult medical examination without abnormal findings Discussion: fasting blood work ordered t o be obtained at [facility] in the next few days [...] ICD-10 : Z01.411 09/22/2017 Appointment: Lisbeth Kruger [address] [place], [place] [address]a [address] Annual Well Visit 09/22/2017 Patient Education: [...] : J01.90 07/05/2017 Appointment: Lisbeth Kruger [place] [address] ACUTE ILLNESS 07/05/2017 Patient Education: Patient [...] : J18.9 03/04/2017 Appointment: Lisbeth Kruger [address] FOLLOW UP 03/04/2017 Patient Education: Patient [...] : R73.02 02/02/2017 Appointment: Nirmala Jaramillo WPtel: [address] [place] [address] FOLLOW UP 02/02/2017 Patient Education: Patient Medication Summary Completed 02/02/2017 Care Plan: Referral Order SNOMED-CT : 30 [id number] Pending 02/02/2017 Patient Education: Patient Medication Summary Completed 01/28/2017 Care Plan: ACUTE HEPATITIS PANEL LOINC : 49458-5 Pending 01/28/2017 Patient Education: Patient Medication Summary Completed 01/26/2017 Care Plan: COMPREHEN METABOLIC PANEL EVY NC : 58462-3 Pending 01/26/2017 Care Plan: A1C HPLC LOINC : 37989-9 Pending 01/26/2017 Appointment: Nirmala Jaramillo WPtel: [phone] [place] [address] [place] INJECTION 11/30/2016 Referral: Sav Goff[address] [place] [address] C&D [id number] Referral Initiated 11/30/2016 Patient Education: Patient Medication [...] S90.852A 11/29/2016 Appointment: Nirmala Jaramillo WPtel: [address] [place], [place] [phone] ACUTE ILLNESS 11/29/2016 Patient Education: Patient Medication [...] : R74.8 11/16/2016 Appointment: Nirmala Jaramillo WPtel: [address] [place], [place] [phone] FOLLOW UP 11/16/2016 Patient Education: Patient Medication Summary Completed 11/16/2016 Care Plan: Referral Order SNOMED-CT : 30 2682403 Pending 11/16/2016 Appointment: Nirmala Jaramillo WPtel: [address] [place], [place] [phone] RESCHEDULED 11/08/2016 Visit Diagnosis Plan: Other hypertrophic disorders of the skin Discussion: Irritated skin tags excised at base and then bases cauterized ICD-9 : 701.9 ICD-10 : L91.8 10/05/2016 Appointment: Nirmala Jaramillo WPtel: [address] [place], [place] [phone] [id number] confirmed-sp OFFICE SURGERY 10/05/2016 Patient Education: Patient Medication Summary Completed 10/05/2016 Appointment: Nirmala [facility]illo WPtel: [phone] [facility] [place] Per doctor~ 09/09 canceled due [...] R74.8 09/06/2016 Appointment: Nirmala Jaramillo WPtel: [facility] [place] 09/02 lm~ FOLLOW UP 09/06/2016 Patient Education: Patient Medication Summary Completed 09/06/2016 Patient Education: Patient Medication Summary Completed 08/18/2016 Care Plan: ACUTE HEPATITIS PANEL LOINC : 09267-5 Pending 08/18/2016 Care Plan: TICKBORNE DISEASE PANEL [...] : E28.2 08/16/2016 Appointment: Nirmala Jaramillo WPtel: [facility] [place] 08/13 confirmed `sl WORK IN 08/16/2016 Patient Education: Patient Medication Summary Completed 08/16/2016 Care Plan: MAMMOGRAM SCREENING Grandmother Juliane Sahu in late LOINC : 98520-6 Pending 08/16/2016 Patient Education: Patient Medication Summary Completed 07/27/2016 Visit Diagnosis Plan: Acute bronchitis, unspecified Di scussion: Rxs as above Borrow neb machine until home with hers if needed OTC meds reviewed Watch BSs closely Follow up if not improving ICD-9 : 466.0 ICD-10 : J20.9 06/23/2016 Appointment: John Ananya [address] [place] [address] ACUTE ILLNESS 06/23/2016 Patient Education: Patient Medication Summary Completed 06/23/2016 Appointment: Nirmala Jaramillo WPtel: [address] [place] [address] [place] INJECTION 03/09/2016 Patient Education: Patient Medication Summary Completed 03/09/2016 Appointment: Nirmala Jaramillo WPtel: [address] [place] [address] [place] INJECTION 02/16/2016 Visit Plan: Decrease Breo to 100/25mcg 1 p BID for another week Flu shot with Prevnar 13 next week if covered Refill metformin 12/18/2015 Appointment: Nirmala Jaramillo WPtel: [address] [place] [address] 12/16 confirmed`sl FOLLOW UP 12/18/2015 Patient Education: [...] Recheck 1week 12/11/2015 Appointment: Nirmala Jaramillo WPtel: [address] [place] [address] ACUTE ILLNESS 12/11/2015 Patient Education: Patient Medication Summary Completed 12/11/2015 Visit Plan: Patient sounds and appears i mproved Continue mucinex, vit C, breathing treatments, humidifier, vicks, etc CXR on am and will call with report before the weekend Monitor for any return of concerning symptoms - fevers, chills, worsening cough, etc 12/08/2015 Appointment: [facility] 12/04 Lm~sl....confirmed-sp FOLLOW UP 11/28 [...] to improve 12/01/2015 Appointment: Ananya Lopez [address] [facility] 11/30 lm ~sl NEW PATIENT 12/01/2015 Patient Education: Patient Medication Summary Completed 12/01/2015 Referral: Dhruv Montalvo WPtel: [address] [facility] E [id number] [place] Referral Appointment Requested Referral: Chan Cahvez WPtel: [address] [facility] 6 [id number] [place] Referral Completed Referral: Dhruv Lubin WPtel: [address] [facility] [address] Referral Initiated Instructions Comment . Saline [...]
--- OUTSIDE RECORDS SUMMARY | 2019-05-18 13:18 | XMS REPORT | CCD ---
Author Author Veronica Lopez Organization [facility] Address [address] [place] [address] Phone Unavailable Care Team Providers Care Automobile Locator Name Role Phone Nirmala Jaramillo D.O., PP Unavailable CCM Unavailable Summary Purpose Interface Exchange Insurance Providers Payer name Policy type / Coverage type Covered republican ID Effective Begin Date Effective End Date [employer] Commercial Insurance [id number] Unknown Family History Family History data not found Social History Social History Element Codes Description Effective Dates Marital status Unknown 12/01/2015 Number of children Unknown 3 12/01/2015 Employment Unknown Currently employed 12/01/[address]: 920566452 Never smoker 12/01/[address]: 202279696 Never drinks alcohol 2015 Allergies, Adverse Reactions, [...] 6.25 mg-codeine 10 mg/5 mL syrup RxNorm: 774223 5 Milliliter(s) Oral Q4H as needed 03/26/2019 No Stop Date Active Trulicity 0.75 mg/0.5 mL subcutaneous pen injector RxNorm: 1 045067 INJECT 1 DOSE SUB-Q ONCE WEEKLY 02/19/2019 03/18/2019 Inactive amlodipine 5 mg tablet RxNorm: 581401 TAKE 1 TABLET BY MOUTH 02/19/2019 05/19/2019 Active Lexapro 20 mg tablet RxNorm: 158898 1 TABLET(S) PO QD 01/04/201905/2019 Active lisinopril 40 mg tablet RxNorm: 862056 1 TABLET(S) PO QD 12/05/2018 0 04/03/2019 Active scopolamine 1 mg over 3 days transdermal patch RxNorm: 34472 2 1 Application Transdermal Q72H 11/27/2018 11/26/2018 Inactive scopolamine 1 mg over 3 days transdermal patch RxNorm: 54020 2 1 Application Transdermal Q72H 11/27/2018 11/27/2018 Inactive ondansetron HCl 4 mg tablet RxNorm: 633459 1 Tablet(s) Oral Q4H as needed for nausea 11/27/2018 11/27/2018 Inactive ondansetron HCl 4 mg tablet RxNorm: 021291 1 Tablet(s) Oral Q4H as needed for nausea 11/27/2018 11/26/2018 Inactive amlodipine 5 mg tablet RxNorm: 558346 1 TABLET(S) PO QD 11/20/2018 Inactive Xanax 0.25 mg tablet RxNorm: 574503 1 Tablet(s) PO as needed 2018 No Stop Date Active ProAir HFA 90 mcg/actuation aerosol inhaler RxNorm: 324271 2 Puff(s) INH Q4H as needed 10/31/2018 No Stop Date Active if insurance das s not cover, please switch to [facility]. prednisone 20 mg tablet RxNorm: 074615 1 Tablet(s) PO BID 10/31/2018 11/04/2018 Inactive Zithromax Z-Ab 250 mg tablet RxNorm: 895943 Tablet(s) take as directed PO 10/31/2018 01/22/2019 Inactive Trulicity 0.75 mg/0.5 mL subcutaneous pen injector RxNorm: 1 803831 1 Unit Dose SQ QW 10/31/2018 02/18/2019 Inactive Ozempic 0.25 mg or 0.5 mg (2 mg/1.5 mL) subcutaneous p en injector RxNorm: 6107653 0.5 Milligram(s) SQ QW 10/09/2018 10/30/2018 Inactive Ozempic 0.25 mg or 0.5 mg (2 mg/1.5 mL) subcutaneous p en injector RxNorm: 7807295 0.5 Gram(s) SQ QW 10/05/2018 10/08/2018 Inactive lisinopril 40 mg tablet RxNorm: 204150 1 Tablet(s) PO QD 09/18/2018 1 Inactive metformin 1,000 mg tablet RxNorm: 646735 1 TABLET(S) PO QD 09/07/19 19 03/04/2019 Inactive Trulicity 0.75 mg/0.5 mL subcutaneous pen injector RxNorm: 1 935447 0.75 Milligram(s) SQ QW Replaces Ozemic 08/28/2018 10/30/2018 Inactive replaces Ozempic Ozempic 0.25 mg or 0.5 mg (2 mg/1.5 mL) subcutaneous p en injector RxNorm: 8187245 0.5 Milligram(s) SQ WEEKLY 08/28/2018 10/05/2018 Inactive metformin 1,000 mg tablet RxNorm: 229918 1 Tablet(s) PO QD 08/24/1909/05/2018 Inactive Ozempic 0.25 mg or 0.5 mg (2 mg/1.5 mL) subcutaneous p en injector RxNorm: 4670371 0.5 Milligram(s) SQ WEEKLY 08/03/2018 08/27/2018 Inactive amlodipine 5 mg tablet RxNorm: 260715 1 Tablet(s) PO QD 07/25/2018 Inactive Lexapro 20 mg tablet RxNorm: 635783 1 Tablet(s) PO QD 07/10/201807/2018 Inactive lisinopril 40 mg tablet RxNorm: 495109 1 Tablet(s) PO QD 07/10/2018 0 09/07/2018 Inactive amlodipine 5 mg tablet RxNorm: 093667 1 Tablet(s) PO QD 06/22/2018 Inactive lisinopril 40 mg tablet RxNorm: 375398 1 Tablet(s) PO QD 06/22/2018 0 07/09/2018 Inactive lisinopril 20 mg tablet RxNorm: 388462 1 Tablet(s) PO QD 06/19/2018 0 06/21/2018 Inactive lisinopril 5 mg tablet RxNorm: 685078 1 Tablet(s) PO QD 06/13/2018 Inactive metformin 1,000 mg tablet RxNorm: 928178 Tablet(s) TABLET(S) 1 TABLET(S) PO QD 06/08/2018 08/22/2018 Inactive Tamiflu 75 mg capsule RxNorm: 032844 1 Capsule(s) PO BID 04/26/2018 0 04/30/2018 Inactive Tamiflu 75 mg capsule RxNorm: 028948 1 Capsule(s) PO BID 04/26/2018 0 04/25/2018 Inactive prednisone 10 mg tablet RxNorm: 786715 1 Tablet(s) PO TID 04/25/2018 04/29/2018 Inactive prednisone 20 mg tablet RxNorm: 038009 1 Tablet(s) PO BID 04/14/2018 04/20/2018 Inactive Augmentin 500 mg-125 mg tablet RxNorm: 821170 1 Tablet(s) PO BID 04/20/2018 Inactive metformin 1,000 mg tablet RxNorm: 297169 TABLET(S) 1 TABLET(S) PO Q D 03/09/2018 06/06/2018 Inactive celecoxib 200 mg capsule RxNorm: 043162 1 Capsule(s) PO BID for diana n 01/31/2018 03/01/2018 Inactive metformin 1,000 mg tablet RxNorm: 273260 1 Tablet(s) PO BID 018 No Stop Date Active Medrol (Ab) 4 mg tablets in a dose pack RxNorm: 722757 Tablet(s) PO take as directed 01/23/2018 01/30/2018 Inactive Lexapro 20 mg tablet RxNorm: 410068 Tablet(s) 1 TABLET(S) PO QD 06/21/2018 Inactive Lexapro 20 mg tablet RxNorm: 818676 Tablet(s) 1 TABLET(S) PO QD 07/201701/22/2018 Inactive metformin 1,000 mg tablet RxNorm: 018333 1 Tablet(s) PO BID 018 01/22/2018 Inactive Lexapro 20 mg tablet RxNorm: 789579 Tablet(s) 1 TABLET(S) PO QD 11/02/2017 Inactive metformin 1,000 mg tablet RxNorm: 779007 Tablet(s) 1 TABLET(S) PO Q D 09/22/2017 09/26/2017 Inactive Xanax 0.25 mg tablet RxNorm: 026782 1 Tablet(s) PO as needed 201710/30/2018 Inactive metformin 1,000 mg tablet RxNorm: 426170 Tablet(s) 1 TA BLET(S) PO QD NEEDS UPDATED LABS 09/06/2017 09/20/2017 Inactive metformin 1,000 mg tablet RxNorm: 078902 1 TABLET(S) PO QD NEED S UPDATED LABS 08/24/2017 09/05/2017 Inactive metformin 1,000 mg tablet RxNorm: 920655 1 Tablet(s) PO QD Need s updated labs 08/08/2017 08/22/2017 Inactive Lexapro 20 mg tablet RxNorm: 349157 1 TABLET(S) PO QD 07/17/201708/29 Inactive pseudoephedrine 30 mg tablet RxNorm: 9323902 1-2 Tablet(s) PO Q6H 0 07/05/2017 06/12/2018 Inactive Augmentin 875 mg-125 mg tablet RxNorm: 068239 1 Tablet(s) PO BID 07/14/2017 Inactive metformin 1,000 mg tablet RxNorm: 650465 1 Tablet(s) PO QD Need s updated labs 07/04/2017 08/08/2017 Inactive metformin 1,000 mg tablet RxNorm: 026828 1 Tablet(s) PO QD Need s updated labs 05/30/2017 07/04/2017 Inactive Levaquin 750 mg tablet RxNorm: 570535 1 Tablet(s) PO QD 03/04/2017 Inactive ProAir HFA 90 mcg/actuation aerosol inhaler RxNorm: 489554 2 Puff(s) INH Q4H as needed 03/04/2017 07/04/2017 Inactive if insurance das s not cover, please switch to ventolin. Tamiflu 75 mg capsule RxNorm: 095670 1 Capsule(s) PO QD 03/04/2017 Inactive metformin 1,000 mg tablet RxNorm: 636513 1 Tablet(s) PO QD 02/16/20 17 05/15/2017 Inactive Lexapro 20 mg tablet RxNorm: 598670 1 Tablet(s) PO QD 01/17/201707/2017 Inactive cephalexin 500 mg capsule RxNorm: 845825 1 Capsule(s) PO TID 201612/08/2016 Inactive pantoprazole 40 mg tablet,delayed release RxNorm: 038004 1 Tabl et(s) PO QD 11/16/2016 03/15/2017 Inactive metformin 1,000 mg tablet RxNorm: 954405 TAKE 1 TABLET BY MOUTH EVERY DAY 10/10/2016 02/15/2017 Inactive Flonase Allergy Relief 50 mcg/actuation nasal spray,suspensi on RxNorm: 0204853 2 Marion NASAL QHS 09/06/2016 11/15/2016 Inactive Singulair 10 mg tablet RxNorm: 219121 1 Tablet(s) PO QHS 09/06/2016 0 11/15/2016 Inactive Singulair 10 mg tablet RxNorm: 541962 1 Tablet(s) PO QHS 08/12/2016 0 09/05/2016 Inactive ProAir HFA 90 mcg/actuation aerosol inhaler RxNorm: 481101 1 Puff(s) INH Q4H as needed 08/12/2016 08/15/2016 Inactive Medrol (Ab) 4 mg tablets in a dose pack RxNorm: 569524 Tablet(s) PO As Directed 07/29/2016 08/15/2016 Inactive Lexapro 20 mg tablet RxNorm: 391850 1 Tablet(s) PO QD 07/06/201612/30 Inactive doxycycline hyclate 100 mg capsule RxNorm: 7770279 1 Capsule(s) PO BID 06/24/2016 06/23/2016 Inactive doxycycline hyclate 100 mg capsule RxNorm: 0009331 1 Capsule(s) PO BID 06/24/2016 07/03/2016 Inactive ProAir HFA 90 mcg/actuation aerosol inhaler RxNorm: 590952 1 Puff(s) INH Q4H as needed 06/23/2016 08/11/2016 Inactive prednisone 20 mg tablet RxNorm: 315998 1 Tablet(s) PO BID 06/23/2016 06/27/2016 Inactive metformin 1,000 mg tablet RxNorm: 939226 1 Tablet(s) PO QD 12/18/19 16 06/14/2016 Inactive Lexapro 20 mg tablet RxNorm: 011618 1 Tablet(s) PO QD 12/18/201510/2016 Inactive prednisone 20 mg tablet RxNorm: 524381 Take 3 tabs PO Q D x 3 days, then 2 tabs PO QD x 3 days, then 1 tab PO QD x 3 days 12/01/2015 12/10/2015 Inacti ve albuterol sulfate 2.5 mg/3 mL (0.083 %) solution for n ebulization RxNorm: 748248 3 Milliliter(s) INH Q4H as needed 12/01/2015 07/04/2017 Inactiv e Singulair 10 mg tablet RxNorm: 294569 1 Tablet(s) PO QHS No Start D ate 08/11/2016 Inactive Breo Ellipta 100 mcg-25 mcg/dose powder for inhalation RxNor m: 6989794 1 Puff(s) INH QD No Start Date 02/01/2017 Inactive Zyrtec 10 mg tablet RxNorm: 7672839 1 Tablet(s) PO QAM No Start Date 11/15/2016 Inactive Xanax 0.25 mg tablet RxNorm: 530625 1 Tablet(s) PO as needed No Sta rt Date 09/21/2017 Inactive metformin 1,000 mg tablet RxNorm: 746468 1 Tablet(s) PO QD No Start Date 12/17/2015 Inactive Singulair 10 mg tablet RxNorm: 549900 1 Tablet(s) PO QHS No Start D ate 11/15/2016 Inactive metformin 1,000 mg tablet RxNorm: 844376 1 Tablet(s) PO QD No Start Date 02/14/2017 Inactive metformin 1,000 mg tablet RxNorm: 085811 1 Tablet(s) PO BID No Star t Date 09/26/2017 Inactive Trulicity 0.75 mg/0.5 mL subcutaneous pen injector RxNorm: 1 850159 0.75 Milligram(s) SQ QW No Start Date 08/27/2018 Inactive Medrol (Ab) 4 mg tablets in a dose pack RxNorm: 926013 Tablet(s) PO As Directed No Start Date 07/28/2016 Inactive Lexapro 20 mg tablet RxNorm: 333523 1 Tablet(s) PO QD No Start Date 1 Inactive Lexapro 20 mg tablet RxNorm: 749927 1 Tablet(s) PO QD No Start Date 0 07/09/2018 Inactive Medication Administered No Medication Administered data Immunizations Vaccine Codes Date Status Tetanus, Diptheria, Pertussis CVX: 115 11/30/2016 Co mplete Pneumococcal CVX: 133 03/09/2016 Complete Results Observation Observation Code Item Item Code Result Date S vice Location VIRAL HEPATITIS PROFILE #2 00653 Hep A IgM Non-Reactive 06/20/2018 Unknown VIRAL HEPATITIS PROFILE #2 05022 Hep B Core IgM Non-Reac tive 06/20/2018 Unknown VIRAL HEPATITIS PROFILE #2 79183 Hepatitis C Ab Non-Reac tive 06/20/2018 Unknown VIRAL HEPATITIS PROFILE #2 38861 Hep Bs Ag Non-Reactive 06/20/2018 Unknown MEAN GLUC 9754638 Calc Mean Gluc 194 mg/dL 06/19/2018 Unkn own COMPREHENSIVE METABOLIC 94166 AST 94 U/L 2018 Unknown COMPREHENSIVE METABOLIC 29545 ALT 160 U/L 2018 Unknown COMPREHENSIVE METABOLIC 29806 BUN 9 mg/dL 2018 Unknown COMPREHENSIVE METABOLIC 66380 ALBUMIN 4.6 g/dL 2018 Unknown COMPREHENSIVE METABOLIC 14352 CHLORIDE 101 mmol/L 06/19 Unknown COMPREHENSIVE METABOLIC 45745 Bili Total 0.9 mg/dL 06/19 Unknown COMPREHENSIVE METABOLIC 98627 ALK PHOS 64 U/L 2018 Unknown COMPREHENSIVE METABOLIC 63725 SODIUM 136 mmol/L 06/19 Unknown COMPREHENSIVE METABOLIC 53125 CREATININE 0.58 mg/dL 05/30 Unknown COMPREHENSIVE METABOLIC 61200 CALCIUM 10.3 mg/dL 06/19 Unknown COMPREHENSIVE METABOLIC 05932 POTASSIUM 3.7 mmol/L 06/19 Unknown COMPREHENSIVE METABOLIC 00008 Total Protein 7.1 g/dL Unknown COMPREHENSIVE METABOLIC 08146 Glucose 187 mg/dL 2018 Unknown COMPREHENSIVE METABOLIC 75200 Bicarbonate 26 mmol/L 05/30 Unknown COMPREHENSIVE METABOLIC 83713 AGAP 9 mmol/L 2018 Unknown GLYCOSYLATED HEMOGLOBIN TEST 69252 Hgb A1c 45271-5 8.4 % 0 06/19/2018 Unknown COMPLETE BLOOD COUNT 3587341 WBC 6.2 10e9/L 06/20/19 19 Unknown COMPLETE BLOOD COUNT 1190380 RBC 4.70 10e12/L 2018 Unknown COMPLETE BLOOD COUNT 7817133 HEMOGLOBIN 13.4 g/dL 06/20/19 19 Unknown COMPLETE BLOOD COUNT 5050901 HEMATOCRIT 39.9 % 06/20/19 19 Unknown COMPLETE BLOOD COUNT 1694924 MCV 84.9 fL 9 Unknown COMPLETE BLOOD COUNT 5480926 MCH 28.5 pg 9 Unknown COMPLETE BLOOD COUNT 4262866 MCHC 33.6 g/dL 9 Unknown COMPLETE BLOOD COUNT 2611675 PLATELET COUNT 252 10e9/L Unknown COMPLETE BLOOD COUNT 3461790 Mean Plt Volume 12.2 fL Unknown COMPLETE BLOOD COUNT 2906074 Neut Auto 53.9 % 9 Unknown COMPLETE BLOOD COUNT 3170800 Lymph Auto 35.2 % 06/20/19 19 Unknown COMPLETE BLOOD COUNT 8688103 [place] Auto 7.1 % 9 Unknown COMPLETE BLOOD COUNT 1818607 RDW 14.1 % 9 Unknown COMPLETE BLOOD COUNT 3963037 Eos Auto 3.2 % 9 Unknown COMPLETE BLOOD COUNT 5856053 Baso Auto 0.6 % 9 Unknown COMPLETE BLOOD COUNT 9281348 Neutrophil Abs 3.34 10e9/L Unknown COMPLETE BLOOD COUNT 8842114 Lymphocyte Abs 2.18 10e9/L Unknown COMPLETE BLOOD COUNT 4074842 Monocyte Abs 0.44 10e9/L 05/30 Unknown COMPLETE BLOOD COUNT 2327127 Eosinophil Abs 0.20 10e9/L Unknown COMPLETE BLOOD COUNT 7110408 RDW-SD 42.7 fL 9 Unknown COMPLETE BLOOD COUNT 7164730 Basophil Abs 0.04 10e9/L 05/30 Unknown THYROID STIMULATING HORMONE 61710 TSH 1.976 uIU/mL 06/19/2018 Unknown GFR CALC 7938761 GFR Non Afr Amr >60 mL/min 06/19/2018 Un known GFR CALC 1493619 GFR Afr Amr >60 mL/min 06/19/2018 Unknow n SURESWAB(R), BACTERIAL VAGINOSIS/VAGINITIS 57193 BV CATEGORY: TNP 09/27/2017 [facility] [address] [place] [address] SURESWAB(R), BACTERIAL VAGINOSIS/VAGINITIS 60448 LACTOBACILLUS S PECIES DNR 09/27/2017 [facility] [address] [place] [address] SURESWAB(R), BACTERIAL VAGINOSIS/VAGINITIS 38071 ATOPOBIUM VAGIN AE DNR 09/27/2017 [facility] [address] [place] [address] SURESWAB(R), BACTERIAL VAGINOSIS/VAGINITIS 54288 MEGASPHAERA SPE CIES DNR 09/27/2017 [facility] [address] [facility] [address] SURESWAB(R), BACTERIAL VAGINOSIS/VAGINITIS 59253 GARDNERELLA VAG INALIS DNR 09/27/2017 [facility] [address] [place] [address] SURESWAB(R), BACTERIAL VAGINOSIS/VAGINITIS 82123 SURESWAB(R) TRICHOMONAS VAGINALIS RNA, QL TMA TNP 09/27/2017 [facility] [address] [facility] [place] [address] SURESWAB(R), BACTERIAL VAGINOSIS/VAGINITIS 20788 C. ALBICANS, DN A TNP 09/27/2017 [facility] [address] [address] [facility] [address] SURESWAB(R), BACTERIAL VAGINOSIS/VAGINITIS 87012 C. GLABRATA, DN A DNR 09/27/2017 [facility] [address] [place] [address] SURESWAB(R), BACTERIAL VAGINOSIS/VAGINITIS 52421 C. TROPICALIS, DNA DNR 09/27/2017 [facility] [address] SURESWAB(R), BACTERIAL VAGINOSIS/VAGINITIS 53725 C. PARAPSILOSIS , DNA DNR 09/27/2017 [facility] [address] [place] [address] THINPREP TIS AND HPV mRNA E6/E7 09834 REPORT STATUS: DNR 09/27/2017 [facility] [address] [place] [address] THINPREP TIS AND HPV mRNA E6/E7 83897 CLINICAL INFORMATION: 09/27/2017 [facility] [address] [place] [address] THINPREP TIS AND HPV mRNA E6/E7 93617 LMP: 201709/27/[address] [place] [address] [address] THINPREP TIS AND HPV mRNA E6/E7 54336 PREV. PAP: 09/27/[address] [place] [address] [address] THINPREP TIS AND HPV mRNA E6/E7 94091 PREV. BX: 09/27/2017 [place] [address] THINPREP TIS AND HPV mRNA E6/E7 82510 SOURCE: Cerv ix 09/27/2017 [place] [address] THINPREP TIS AND HPV mRNA E6/E7 76852 STATEMENT OF ADEQUACY: 09/27/2017 [place] [address] THINPREP TIS AND HPV mRNA E6/E7 56723 GENERAL CATEGORIZATION: DNR 09/27/2017 [place] [address] THINPREP TIS AND HPV mRNA E6/E7 38293 INTERPRETATION/RESULT: 09/27/2017 [place] [address] THINPREP TIS AND HPV mRNA E6/E7 58630 INFECTION: DNR 09/27/2017 [place] [address] THINPREP TIS AND HPV mRNA E6/E7 31727 COMMENT: 09/27/2017 [place] [address] THINPREP TIS AND HPV mRNA E6/E7 98353 HEAD MECHANIC: 09/27/2017 [place] [address] THINPREP TIS AND HPV mRNA E6/E7 35705 REVIEW HEAD MECHANIC: DNR 09/27/2017 [place] [address] THINPREP TIS AND HPV mRNA E6/E7 07063 PATHOLOGIST: KHLOE Srivastava 09/27/2017 [facility] [address] [place] [address] THINPREP TIS AND HPV mRNA E6/E7 96740 COMMENT 09/27/2017 [facility] [address] [place] [address] THINPREP TIS AND HPV mRNA E6/E7 87377 HPV mRNA E6/E7 Not Detected 09/27/2017 [facility] [address] [place] [address] CULTURE, GENITAL 95516 CULTURE, GENITAL SEE NOTE [facility] [address] [place] [address] CULTURE, THROAT 46495 CULTURE, THROAT SEE NOTE 07/30 [facility] [place] [address] Procedures Procedure Codes Date INFLUENZA ASSAY W/OPTIC CPT-4: 86235 03/26/2019 DEXAMETHASONE SODIUM PHOS CPT-4: J1100 03/26/2019 THER/PROPH/DIAG INJ SC/IM CPT-4: 17914 03/26/2019 TRIAMCINOLONE ACET INJ NOS CPT-4: J3301 03/26/2019 DRAIN/INJECT JOINT/BURSA CPT-4: 46723 01/23/2019 ROUTINE VENIPUNCTURE CPT-4: 88590 06/19/2018 COMPLETE CBC W/AUTO DIFF WBC CPT-4: 37332 06/19/2018 COMPREHEN METABOLIC PANEL CPT-4: 21620 06/19/2018 A1C HPLC CPT-4: 64729 06/19/2018 ASSAY THYROID STIM HORMONE CPT-4: 46612 06/19/2018 URINALYSIS NONAUTO W/O SCOPE CPT-4: 61691 06/19/2018 ACUTE HEPATITIS PANEL CPT-4: 87564 06/19/2018 INFLUENZA ASSAY W/OPTIC CPT-4: 15304 04/26/2018 STREP A ASSAY W/OPTIC CPT-4: 94291 04/25/2018 THROAT CULTURE CPT-4: 07967 04/25/2018 CEFTRIAXONE SODIUM INJECTION CPT-4: J0696 11/10/2017 DEXAMETHASONE SODIUM PHOS CPT-4: J1100 11/10/2017 THER/PROPH/DIAG INJ SC/IM CPT-4: 03135 11/10/2017 TRIAMCINOLONE ACET INJ NOS CPT-4: J3301 11/10/2017 OCCULT BLOOD FECES CPT-4: 80295 09/22/2017 SURESWAB(R), BACTERIAL VAGINOSIS/VAGINITIS CPT-4: 97393 09/22/2017 CULTURE, GENITAL CPT-4: 47310 09/22/2017 TDAP VACCINE 7 YRS/> IM CPT-4: 83857 11/30/2016 IMMUNIZATION ADMIN CPT-4: 25532 11/30/2016 REMOVAL OF FOOT FOREIGN BODY CPT-4: 39484 11/29/2016 REMOVAL OF SKIN TAGS <W/15 CPT-4: 19962 10/05/2016 CULTURE, THROAT CPT-4: 48222 08/16/2016 PNEUMOCOCCAL VACC 13 AYSHA IM CPT-4: 63569 03/09/2016 IMMUNIZATION ADMIN CPT-4: 69505 03/09/2016 THER/PROPH/DIAG INJ SC/IM CPT-4: 79918 12/11/2015 TRIAMCINOLONE ACET INJ NOS CPT-4: J3301 [...] 1: 126/84 Code: 8480-6 BMI: 39.9 Code: 19028-5 Heart Rate 1: 80 bpm Height: 5'2" [...] 1: 126/82 Code: 8480-6 BMI: 40.6 Code: 37039-5 Heart Rate 1: 72 bpm Height: 5'2" [...] 1: 124/68 Code: 8480-6 BMI: 41.7 Code: 06080-7 Heart Rate 1: 66 bpm Height: 5'2" Respiratory Rate: 20 bpm SpO2: 98% Tempera ture: 36.2 (C) / 97.2 (F) Weight: 228 lbs 09/22/2017 Blood Pressure 1: 142/80 Code: 8480-6 BMI: 41.3 Code: 80686-8 Heart Rate 1: 60 bpm Height: 5'2" Respiratory Rate: 20 bpm SpO2: 98% Tempera ture: 36.3 (C) / 97.3 (F) Weight: 226 lbs 07/05/2017 Blood Pressure 1: 129/82 Code: 8480-6 BMI: 42.3 Code: 56029-4 Heart Rate 1: 60 bpm Height: 5'2" SpO2: 97% Temperature: 36.4 (C) / 97.6 (F) Weight: 231 lbs 03/04/2017 Blood Pressure 1: 142/80 Code: 8480-6 BMI: 42.4 Code: 11036-3 Heart Rate 1: 74 bpm Height: 5'2" Respiratory Rate: 24 bpm SpO2: 97% Tempera ture: 36.4 (C) / 97.6 (F) Weight: 232 lbs 02/02/2017 Blood Pressure 1: 146/82 Code: 8480-6 BMI: 42.4 Code: 05140-9 Heart Rate 1: 84 bpm Height: 5'2" Respiratory Rate: 20 bpm SpO2: 98% Tempera ture: 36.6 (C) / 97.9 (F) Weight: 232 lbs 11/29/2016 Blood Pressure 1: 12678 Code: 8480-6 Heart Rate 1: 76 bpm Height: 5'2" Respiratory Rate: 20 bpm SpO2: 96% Temperature: 36 .9 (C) / 98.4 (F) 11/16/2016 Blood Pressure 1: 136/94 Code: 8480-6 BMI: 42.6 Code: 35213-6 Heart Rate 1: 68 bpm Height: 5'2" Respiratory Rate: 20 bpm SpO2: 96% Tempera ture: 36.9 (C) / 98.4 (F) Weight: 233 lbs 10/05/2016 Blood Pressure 1: 112/78 Code: 8480-6 BMI: 41.5 Code: 74788-4 Heart Rate 1: 80 bpm Height: 5'2" Respiratory Rate: 20 bpm SpO2: 97% Tempera ture: 36.8 (C) / 98.2 (F) Weight: 227 lbs 09/06/2016 Blood Pressure 1: 126/82 Code: 8480-6 BMI: 42.4 Code: 02458-3 Heart Rate 1: 64 bpm Height: 5'2" Respiratory Rate: 20 bpm SpO2: 98% Tempera ture: 37.0 (C) / 98.6 (F) Weight: 232 lbs 08/16/2016 Blood Pressure 1: 136/82 Code: 8480-6 BMI: 42.1 Code: 19716-5 Heart Rate 1: 72 bpm Height: 5'2" [...] 1: 144/80 Code: 8480-6 BMI: 40.4 Code: 44689-4 Heart Rate 1: 92 bpm Height: 5'2" Respiratory Rate: 20 bpm SpO2: 95% Tempera ture: 36.8 (C) / 98.2 (F) Weight: 221 lbs 12/08/2015 Blood Pressure 1: 124/78 Code: 8480-6 Heart Rate 1: 108 bpm Height: 5'2" Respiratory Rate: 22 bpm SpO2: 95% Temperature: 36.2 (C) / 97.2 (F) Weight: 12/01/2015 Blood Pressure 1: 124/78 Code: 8480-6 BMI: 40.4 Code: 64132-1 Heart Rate 1: 92 bpm Height: 5'2" [...] leg cough 11/10/2017 patient was seen at [facility] and given Levaquin and 5 day [...] care Encounters Encounter Performer Location Codes Date ([id number]) OFFICE/OUTPATIENT VISIT EST Diagnosis: Upper respiratory infection[ICD10: J06.9] Lisbeth JARAMILLO Tuizzi CPT-4: 85374 03/26/2019 ([id number]) OFFICE/OUTPATIENT VISIT EST Diagnosis: Acute upper respiratory infection, unspecified[ICD10: J06.9] Diagnosis: Generalized anxiety disorder[ICD10: F41.1] Diagnosis: Type 2 diabetes mellitus with hyperglycemia[ICD10: E11.65] Diagnosis: Encounter for therapeutic drug level monitoring[ICD10: Z51.81] Lisbeth Murguia [facility] CPT-4: 19812 10/31/2018 ([id number]) OFFICE/OUTPATIENT VISIT EST Diagnosis: Type 2 diabetes mellitus with hyperglycemia[ICD10: E11.65] Diagnosis: Essential (primary) hypertension[ICD10: I10] Nirmala Murguia [employer] Tuizzi CPT-4: 99128 08/08/2018 ([id number]) OFFICE/OUTPATIENT VISIT EST Diagnosis: Essential (primary) hypertension[ICD10: I10] Diagnosis: Type 2 diabetes mellitus with hyperglycemia[ICD10: E11.65] Diagnosis: Other fatigue[ICD10: R53.83] Nirmala JARAMILLO [facility] CPT-4: 80584 07/06/2018 ([id number]) OFFICE/OUTPATIENT VISIT EST Diagnosis: Dizziness and giddiness[ICD10: R42] Diagnosis: Elevated blood-pressure reading, without diagnosis of hypertension[ICD10: R03.0] Shell JARAMILLO [facility] CPT- 4: 97382 06/19/2018 ([id number]) OFFICE/OUTPATIENT VISIT EST Diagnosis: Essential (primary) hypertension[ICD10: I10] Diagnosis: Dizziness and giddiness[ICD10: R42] Shell JARAMILLO [facility] CPT-4: 30343 06/13/2018 ([id number]) NURSE/OUTPATIENT VISIT EST Diagnosis: Influenza due to identified novel influenza A virus with other manifestations[ICD10: J09.X9] Nirmala JARAMILLO [facility] CPT-4: 53925 04/26/2018 OFFICE/OUTPATIENT VISIT EST Diagnosis: Pain in throat[ICD10: R07.0] Diagnosis: Acute pharyngitis, unspecified[ICD10: J02.9] Shell JARAMILLO [facility] CPT-4: 91109 04/25/2018 ([id number]) OFFICE/OUTPATIENT VISIT EST Diagnosis: Acute sinusitis, unspecified[ICD10: J01.90] Diagnosis: Paresthesia of skin[ICD10: R20.2] Nirmala ORNELASDAMON Yee Shantal JARAMILLO [facility] CPT-4: 03630 04/14/2018 ([id number]) OFFICE/OUTPATIENT VISIT EST Diagnosis: Pain in right leg[ICD10: M79.604] Diagnosis: Sciatica, right side[ICD10: M54.31] Nirmala JARAMILLO [facility] CPT-4: 52904 01/31/2018 ([id number]) OFFICE/OUTPATIENT VISIT EST Diagnosis: Pain in right leg[ICD10: M79.604] Lisbeth JARAMILLO DO [facility] CPT-4: 61156 01/23/2018 ([id number]) OFFICE/OUTPATIENT VISIT EST Diagnosis: Acute bronchitis, unspecified[ICD10: J20.9] Lisbeth JARAMILLO DO [facility] CPT-4: 05356 11/10/2017 ([id number]) PREV VISIT EST AGE 40-64 Diagnosis: Encounter [...] Nonalcoholic steatohepatitis (MOORE)[ICD10: K75.81] Lisbeth JARAMILLO DO [facility] CPT-4: 58514 09/22/2017 ([id number]) OFFICE/OUTPATIENT VISIT EST Diagnosis: Acute sinusitis, unspecified[ICD10: J01.90] Lisbeth JARAMILLO DO [facility] CPT-4: 83918 07/05/2017 OFFICE/OUTPATIENT VISIT EST Diagnosis: Pneumonia, unspecified organism[ICD10: J18.9] Lisbeth JARAMILLO DO [facility] CPT-4: 95556 03/04/2017 ([id number]) OFFICE/OUTPATIENT VISIT EST Diagnosis: Polycystic ovarian syndrome[ICD10: E28.2] Diagnosis: Abnormal levels of other serum enzymes[ICD10: R74.8] Diagnosis: Nonalcoholic steatohepatitis (MOORE)[ICD10: K75.81] Diagnosis: Impaired glucose tolerance (oral)[ICD10: R73.02] Nirmala JARAMILLO DO [facility] CPT-4: 31235 02/02/2017 ([id number]) OFFICE/OUTPATIENT VISIT EST Diagnosis: VACCINE FOR TDAP[ICD10: Z23] Nirmala JARAMILLO DO [facility] CPT-4: 62203 11/30/2016 ([id number]) OFFICE/OUTPATIENT VISIT EST Diagnosis: Cough[ICD10: R05] Diagnosis: Abnormal levels of other serum enzymes[ICD10: R74.8] Diagnosis: Family history of other endocrine, nutritional and metabolic diseases[ICD10: Z83.49] Nirmala JARAMILLO DO [facility] CPT-4: 71969 11/16/2016 ([id number]) OFFICE/OUTPATIENT VISIT EST Diagnosis: Cough[ICD10: R05] Diagnosis: Other seasonal allergic rhinitis[ICD10: J30.2] Diagnosis: Abnormal levels of other serum enzymes[ICD10: R74.8] Nirmala JARAMILLO DO [facility] CPT-4: 94365 09/06/2016 ([id number]) OFFICE/OUTPATIENT VISIT EST Diagnosis: Cough[ICD10: R05] Diagnosis: Polycystic ovarian syndrome[ICD10: E28.2] Nirmala JARAMILLO DO [facility] CPT-4: 39149 08/16/2016 ([id number]) OFFICE/OUTPATIENT VISIT EST Diagnosis: Acute bronchitis, unspecified[ICD10: J20.9] Diagnosis: Acute upper respiratory infection, unspecified[ICD10: J06.9] Ananya John JARAMILLO [facility] CPT-4: 73413 06/23/2016 ([id number]) OFFICE/OUTPATIENT VISIT EST Diagnosis: PNEUMOCOCCAL VACCINE[ICD10: Z23] Nirmala JARAMILLO DO [facility] CPT-4: 82347 03/09/2016 ([id number]) OFFICE/OUTPATIENT VISIT EST Diagnosis: Pneumonia, unspecified organism[ICD10: J18.9] Diagnosis: Polycystic ovarian syndrome[ICD10: E28.2] Diagnosis: Generalized anxiety disorder[ICD10: F41.1] Nirmala JARAMILLO DO [facility] CPT-4: 36829 12/18/2015 ([id number]) OFFICE/OUTPATIENT VISIT EST Diagnosis: Cough[ICD10: R05] Diagnosis: Acute bronchospasm[ICD10: J98.01] Nirmala WHITINGWESLY JARAMILLO [facility] CPT-4: 91264 12/11/2015 ([id number]) OFFICE/OUTPATIENT VISIT EST Diagnosis: Pneumonia, unspecified organism[ICD10: J18.9] Ananya JARAMILLO DO [facility] CPT-4: 44352 12/08/2015 OFFICE/OUTPATIENT VISIT NEW Diagnosis: Pneumonia, unspecified organism[ICD10: J18.9] Ananya JARAMILLO [facility] CPT-4: 32715 12/01/2015 Plan of Care Planned Activity Notes [...] M76.41 01/23/2019 Appointment: [facility]irm[phone] [facility] [facility] 01/23/2019 Care Plan: Referral Order SNOMED-CT : 30 6410373 Pending 01/23/2019 Visit Diagnosis Plan: Type 2 [...] : F41.1 10/31/2018 Appointment: Lisbeth Kruger [address] [place], [place] [address] ACUTE ILLNESS 10/31/2018 Patient Education: Trulicity- OptimizeRX Coupon [id number] https://www.PocketMobile/sampleAirbnb/resources/getResource/61/v959k8i0-m230-5o05-vl Completed 10/31/2018 Patient Education: Xanax- OptimizeRX Coupon [id number] https://www.[employer]ocketMobile/sampleAirbnb/resources/getResource/61/aw26167i-5180-80k6-lp b2-680y426q7601.pdf Completed 10/31/2018 Patient Education: prednisone- OptimizeRX Coupon 65995 386 https://www.[employer]ocketMobile/sampleAirbnb/resources/getResource/61/040py396-0010-88b4-79 Completed 10/31/2018 Patient Education: ProAir HFA- OptimizeRX Coupon 93147 600 https://www.PocketMobile/sampleAirbnb/resources/getResource/61/8pf71505-97z1-3398-02 Completed 10/31/2018 Visit Diagnosis Plan: Type 2 diabetes mellitus with hy perglycemia Discussion: Lab discussed Accuchecks daily Continue current meds Check CMP and HbA1C end of September then fwup ICD-9 : 250.02 ICD-10 : E11.65 08/08/2018 Visit Diagnosis Plan: Essential (primary) hypertension Discussion: Stable ICD-9 : 401.9 ICD-10 : I10 08/08/2018 Appointment: [facility]irm[phone] [facility] [facility] 08/08/2018 Visit Diagnosis Plan: [...] : R53.83 07/06/2018 Appointment: Nirmala Jaramillo WPtel: [address] [place], [place] [phone] FOLLOW UP 07/06/2018 Appointment: Nirmala Jaramillo WPtel: [address] [place], [place] [phone] [place] Consult 06/22/2018 Patient Education: lisinopril- OptimizeRX Coupon [id number] [id number] https://www.[employer].Wisair/samplemd/resources/getResource/61/165b72v1-egg0-6254-fo Completed 06/22/2018 Visit Diagnosis Plan: Essential (primary) hypertension Discussion: Increased lisinopril from 5 QD to 20 mg QD. Labs today- CBC, CMP, TSH, A1C. UA today- trace protein. hematuria (patient on period). ICD-9 : 401.9 ICD-10 : I10 06/19/2018 Visit Diagnosis Plan: Dizziness and giddiness Discussi on: Recommend scheduling appt with yard motor operator. ICD-9 : 780.4 ICD-10 : R42 06/19/2018 Appointment: Shell Vega [address] [facility] FOLLOW UP 06/19/2018 Visit Diagnosis Plan: Essential [...] ICD-10 : R42 06/13/2018 Appointment: Shell Vega [address] [place] [address] ACUTE ILLNESS 06/13/2018 Appointment: Nirmala Jaramillo WPtel: [address] [place] [address] FLU SWAB 04/26/2018 Visit Diagnosis Plan: Pain in throat Discussion: Rapid Strep A- negative Throat culture- pending. Will call patient with results. Prednisone 10 mg TID x 5 days. Supportive care- fluids, tylenol for pain, humidified air. ICD-9 : 784.1 ICD-10 : R07.0 04/25/2018 Appointment: Shell Vega [address] [place] [address] ACUTE ILLNESS 04/25/2018 Visit Plan: Saline nasal [...] : J01.90 04/14/2018 Appointment: Nirmala Jaramillo WPtel: [address] [place] [address] ACUTE ILLNESS 04/14/2018 Patient Education: prednisone- OptimizeRX Coupon 13889 [id number] https://www.[employer].Wisair/Cloudcammd/resources/getResource/61/5dgy53kq-m5f5-86i0-l4 Completed 04/14/2018 Visit Diagnosis Plan: Pain in right leg Discussion: Ch dickson right tib/fib x-ray and start celebrex May need PT ICD-9 : 729.5 ICD-10 : M79.604 01/31/2018 Visit Diagnosis Plan: Sciatica, right side Discussion: Check L/S spine x-ray ICD-9 : 724.3 ICD-10 : M54.31 01/31/2018 Appointment: Nirmala Jaramillo WPtel: [phone] [place] FOLLOW UP 01/31/2018 Care Plan: X-RAY EXAM L-S SPINE 2/3 VWS LOINC : 02428-3 Pending 01/31/2018 Care Plan: X-RAY EXAM OF LOWER LEG LOINC : 99889-3 Pending 01/31/2018 Visit Diagnosis Plan: Pain in [...] : M79.604 01/23/2018 Appointment: Lisbeth Kruger [address] [facility] ACUTE ILLNESS 01/23/2018 Visit Diagnosis Plan: Acute [...] : J20.9 11/10/2017 [facility]ment[facility] [facility] 11/10/2017 Patient Education: Patient Medication Summary Completed 11/10/2017 Care Plan: CHEST X-RAY 2VW FRONTAL&LATL LOINC : 97946-8 Pending 11/10/2017 Patient Education: Patient Medication Summary Completed 09/26/2017 Care Plan: A1C HPLC LOINC : 63065-5 Pending 09/26/2017 Visit Diagnosis Plan: Encounter for gene ral adult medical examination without abnormal findings Discussion: fasting blood work ordered t o be obtained at [facility] in the next few days when [...] mammogram ordered to be comp leted at [facility]. breast exam performed in office. ICD-9 : V76.11 ICD-10 : Z12.31 09/22/2017 Appointment: Lisbeth Kruger [address] Annual Well Visit 09/22/2017 Patient Education: [...] J01.90 07/05/2017 Appointment: Lisbeth Kruger [address] ACUTE ILLNESS 07/05/2017 Patient Education: Patient [...] : J18.9 03/04/2017 Appointment: Lisbeth Kruger [address] FOLLOW UP 03/04/2017 Patient Education: Patient [...] : R73.02 02/02/2017 Appointment: Nirmala Jaramillo WPtel: [address] [place] [address] FOLLOW UP 02/02/2017 Patient Education: Patient Medication Summary Completed 02/02/2017 Care Plan: Referral Order SNOMED-CT : 30 7628143 Pending 02/02/2017 Patient Education: Patient Medication Summary Completed 01/28/2017 Care Plan: ACUTE HEPATITIS PANEL LOINC : 28626-3 Pending 01/28/2017 Patient Education: Patient Medication Summary Completed 01/26/2017 Care Plan: COMPREH[place]AB[place] : 79793-2 Pending 01/26/2017 Care Plan: A1C HPLC LOINC : 06086-5 Pending 01/26/2017 Appointment: Nirmala Jaramillo WPtel: [phone] [place] [address] [place] INJECTION 11/30/2016 Referral: Sav Goff[address] [place] [address] C&D [id number] Referral Initiated 11/30/2016 Patient Education: Patient Medication [...] : S90.852A 11/29/2016 Appointment: Nirmala Jaramillo WPtel: [address] [place], [place] [phone] ACUTE ILLNESS 11/29/2016 Patient Education: Patient Medication [...] : R74.8 11/16/2016 Appointment: Nirmala Jaramillo WPtel: [address] [place], [place] [phone] FOLLOW UP 11/16/2016 Patient Education: Patient Medication Summary Completed 11/16/2016 Care Plan: Referral Order SNOMED-CT : 30 0609827 Pending 11/16/2016 Appointment: Nirmala Jaramillo WPtel: [address] [place], [place] [phone] RESCHEDULED 11/08/2016 Visit Diagnosis Plan: Other hypertrophic disorders of the skin Discussion: Irritated skin tags excised at base and then bases cauterized ICD-9 : 701.9 ICD-10 : L91.8 10/05/2016 Appointment: Nirmala Jaramillo WPtel: [address] [place], [place] [id number] confirmed-sp OFFICE SURGERY 10/05/2016 Patient Education: Patient Medication Summary Completed 10/05/2016 Appointment: Nirmala [facility]illo [facility]Ptel[phone] [facility] [place] Per doctor~ 09/09 canceled due [...] : R74.8 09/06/2016 Appointment: Nirmala Jaramillo WPtel: [facility] [place] 09/02 lm~ FOLLOW UP 09/06/2016 Patient Education: Patient Medication Summary Completed 09/06/2016 Patient Education: Patient Medication Summary Completed 08/18/2016 Care Plan: ACUTE HEPATITIS PANEL LOINC : 80503-4 Pending 08/18/2016 Care Plan: T[place] DISEASE PANEL [...] R05 08/16/2016 Appointment: Nirmala [facility]illo [facility]Ptel[phone] [facility] [place] 08/13 confirmed `sl WORK IN 08/16/2016 Patient Education: Patient Medication Summary Completed 08/16/2016 Care Plan: MAMMOGRAM SCREENING Grandmother Juliane Sahu in late LOINC : 59987-5 Pending 08/16/2016 Patient Education: Patient Medication Summary Completed 07/27/2016 Visit Diagnosis Plan: Acute bronchitis, unspecified Di scussion: Rxs as above Borrow neb machine until home with hers if needed OTC meds reviewed Watch BSs closely Follow up if not improving ICD-9 : 466.0 ICD-10 : J20.9 06/23/2016 Appointment: John Ananya [address] [place] [address] ACUTE ILLNESS 06/23/2016 Patient Education: Patient Medication Summary Completed 06/23/2016 Appointment: Nirmala Jaramillo WPtel: [address] [place] [address] [place] INJECTION 03/09/2016 Patient Education: Patient Medication Summary Completed 03/09/2016 Appointment: Nirmala Jaramillo WPtel: [address] [place] [address] [place] INJECTION 02/16/2016 Visit Plan: Decrease Breo to 100/25mcg 1 p BID for another week Flu shot with Prevnar 13 next week if covered Refill metformin 12/18/2015 Appointment: Nirmala Jaramillo WPtel: [address] [place] [address] 12/16 confirmed`sl FOLLOW UP 12/18/2015 Patient Education: [...] Recheck 1week 12/11/2015 Appointment: Nirmala Jaramillo WPtel: [address] [place] [address] ACUTE ILLNESS 12/11/2015 Patient Education: Patient Medication Summary Completed 12/11/2015 Visit Plan: Patient sounds and appears i mproved Continue mucinex, vit C, breathing treatments, humidifier, vicks, etc CXR on am and will call with report before the weekend Monitor for any return of concerning symptoms - fevers, chills, worsening cough, etc 12/08/2015 Appointment: [facility]anya Lopez [facility] [facility] 12/04 Lm~sl....confirmed-sp FOLLOW UP 11/28 Patient Education: [...] to improve 12/01/2015 Appointment: Ananya Lopez [address] [facility] 11/30 lm ~sl NEW PATIENT 12/01/2015 Patient Education: Patient Medication Summary Completed 12/01/2015 Referral: Dhruv Montalvo WPtel: [address] [facility] [place] [id number] [place] Referral Appointment Requested Referral: Chan Chavez WPtel: [address] [facility] 6 [id number] [place] Referral Completed Referral: Dhruv Lubin WPtel: [address] [facility] [address] Referral Initiated Instructions Comment . Saline [...]
--- OUTSIDE RECORDS SUMMARY | 2019-05-18 13:19 | XMS REPORT | CCD ---
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 Name Role Phone Nirmala Jaramillo D.O., PP Unavailable CCM Unavailable Summary Purpose Interface Exchange Insurance Providers Payer name Policy type / Coverage type Covered constitution party ID Effective Begin Date Effective End Date [employer] Commercial Insurance [id number] Unknown Family History Family History data not found Social History Social History Element Codes Description Effective Dates Marital status Unknown 12/01/2015 Number of children Unknown 3 12/01/2015 Employment Unknown Currently employed 12/01/[address]: 031812895 Never smoker 12/01/[address]: 573651845 Never drinks alcohol 2015 Allergies, Adverse Reactions, Alerts Substance Reaction Codes Entered Date Inactivated Date Status * NO KNOWN FOOD ALLERGIES Unknown 12/01/2015 No Inactiv e Date Active * NO KNOWN ENVIRONMENTAL ALLERGIES Unknown 12/01/2015 N o Inactive Date Active _ reaction, Unknown 12/01/2015 No Inactive Date Active Problems Condition Codes Effective Dates Condition Status Bursitis of right knee ICD-9: 726.60 ICD-10: M70.51 01/23/2019 Active Sprain of lateral collateral ligament of right knee, i nitial encounter ICD-9: 844.0 ICD-10: S83.421A 01/23/2019 Active Tibial collateral bursitis of right knee ICD-9: 726.62 ICD-10: M76.41 01/23/2019 Active Acute upper respiratory infection, unspecified ICD-9: 465.9 ICD-10: J06.9 06/23/2016 Active Encounter for therapeutic drug level monitoring [...] mg/0.5 mL subcutaneous pen injector RxNorm: 1 158987 INJECT 1 DOSE SUB-Q ONCE WEEKLY 02/19/2019 03/18/2019 Active amlodipine 5 mg tablet RxNorm: 599646 TAKE 1 TABLET BY MOUTH 02/19/2019 05/19/2019 Active Lexapro 20 mg tablet RxNorm: 615260 1 TABLET(S) PO QD 01/04/2019 02/0 05/2019 Active lisinopril 40 mg tablet RxNorm: 538756 1 TABLET(S) PO QD 12/05/2018 0 04/03/2019 Active scopolamine 1 mg over 3 days transdermal patch RxNorm: 92724 2 1 Application Transdermal Q72H 11/27/2018 11/26/2018 Inactive scopolamine 1 mg over 3 days transdermal patch RxNorm: 78266 2 1 Application Transdermal Q72H 11/27/2018 11/27/2018 Inactive ondansetron HCl 4 mg tablet RxNorm: 726242 1 Tablet(s) Oral Q4H as needed for nausea 11/27/2018 11/27/2018 Inactive ondansetron HCl 4 mg tablet RxNorm: 176495 1 Tablet(s) Oral Q4H as needed for nausea 11/27/2018 11/26/2018 Inactive amlodipine 5 mg tablet RxNorm: 322967 1 TABLET(S) PO QD 11/20/2018 Inactive Xanax 0.25 mg tablet RxNorm: 761371 1 Tablet(s) PO as needed 2018 No Stop Date Active ProAir HFA 90 mcg/actuation aerosol inhaler RxNorm: 635322 2 Puff(s) INH Q4H as needed 10/31/2018 No Stop Date Active if insurance das s not cover, please switch to ventolin. prednisone 20 mg tablet RxNorm: 282010 1 Tablet(s) PO BID 10/31/2018 11/04/2018 Inactive Zithromax Z-Ab 250 mg tablet RxNorm: 092667 Tablet(s) take as directed PO 10/31/2018 01/22/2019 Inactive Trulicity 0.75 mg/0.5 mL subcutaneous pen injector RxNorm: 1 824889 1 Unit Dose SQ QW 10/31/2018 02/18/2019 Inactive Ozempic 0.25 mg or 0.5 mg (2 mg/1.5 mL) subcutaneous p en injector RxNorm: 6507974 0.5 Milligram(s) SQ QW 10/09/2018 10/30/2018 Inactive Ozempic 0.25 mg or 0.5 mg (2 mg/1.5 mL) subcutaneous p en injector RxNorm: 3589036 0.5 Gram(s) SQ QW 10/05/2018 10/08/2018 Inactive lisinopril 40 mg tablet RxNorm: 707445 1 Tablet(s) PO QD 09/18/2018 1 Inactive metformin 1,000 mg tablet RxNorm: 139784 1 TABLET(S) PO QD 09/07/19 19 03/04/2019 Active Trulicity 0.75 mg/0.5 mL subcutaneous pen injector RxNorm: 1 946289 0.75 Milligram(s) SQ QW Replaces Ozemic 08/28/2018 10/30/2018 Inactive replaces Ozempic Ozempic 0.25 mg or 0.5 mg (2 mg/1.5 mL) subcutaneous p en injector RxNorm: 2923399 0.5 Milligram(s) SQ WEEKLY 08/28/2018 10/05/2018 Inactive metformin 1,000 mg tablet RxNorm: 234454 1 Tablet(s) PO QD 08/24/19 19 09/05/2018 Inactive Ozempic 0.25 mg or 0.5 mg (2 mg/1.5 mL) subcutaneous p en injector RxNorm: 8735581 0.5 Milligram(s) SQ WEEKLY 08/03/2018 08/27/2018 Inactive amlodipine 5 mg tablet RxNorm: 838889 1 Tablet(s) PO QD 07/25/2018 Inactive Lexapro 20 mg tablet RxNorm: 829851 1 Tablet(s) PO QD 07/10/201807/2018 Inactive lisinopril 40 mg tablet RxNorm: 129666 1 Tablet(s) PO QD 07/10/2018 0 09/07/2018 Inactive amlodipine 5 mg tablet RxNorm: 795362 1 Tablet(s) PO QD 06/22/2018 Inactive lisinopril 40 mg tablet RxNorm: 569574 1 Tablet(s) PO QD 06/22/2018 0 07/09/2018 Inactive lisinopril 20 mg tablet RxNorm: 632869 1 Tablet(s) PO QD 06/19/2018 0 06/21/2018 Inactive lisinopril 5 mg tablet RxNorm: 270059 1 Tablet(s) PO QD 06/13/2018 Inactive metformin 1,000 mg tablet RxNorm: 504898 Tablet(s) TABLET(S) 1 TABLET(S) PO QD 06/08/2018 08/22/2018 Inactive Tamiflu 75 mg capsule RxNorm: 969505 1 Capsule(s) PO BID 04/26/2018 0 04/30/2018 Inactive Tamiflu 75 mg capsule RxNorm: 358498 1 Capsule(s) PO BID 04/26/2018 0 04/25/2018 Inactive prednisone 10 mg tablet RxNorm: 707920 1 Tablet(s) PO TID 04/25/2018 04/29/2018 Inactive prednisone 20 mg tablet RxNorm: 862261 1 Tablet(s) PO BID 04/14/2018 04/20/2018 Inactive Augmentin 500 mg-125 mg tablet RxNorm: 633849 1 Tablet(s) PO BID 04/20/2018 Inactive metformin 1,000 mg tablet RxNorm: 102684 TABLET(S) 1 TABLET(S) PO Q D 03/09/2018 06/06/2018 Inactive celecoxib 200 mg capsule RxNorm: 819592 1 Capsule(s) PO BID for diana n 01/31/2018 03/01/2018 Inactive metformin 1,000 mg tablet RxNorm: 544590 1 Tablet(s) PO BID 018 No Stop Date Active Medrol (Ab) 4 mg tablets in a dose pack RxNorm: 057173 Tablet(s) PO take as directed 01/23/2018 01/30/2018 Inactive Lexapro 20 mg tablet RxNorm: 062452 Tablet(s) 1 TABLET(S) PO QD 06/21/2018 Inactive Lexapro 20 mg tablet RxNorm: 272077 Tablet(s) 1 TABLET(S) PO QD 07/201701/22/2018 Inactive metformin 1,000 mg tablet RxNorm: 543388 1 Tablet(s) PO BID 018 01/22/2018 Inactive Lexapro 20 mg tablet RxNorm: 166011 Tablet(s) 1 TABLET(S) PO QD 11/02/2017 Inactive metformin 1,000 mg tablet RxNorm: 647274 Tablet(s) 1 TABLET(S) PO Q D 09/22/2017 09/26/2017 Inactive Xanax 0.25 mg tablet RxNorm: 626435 1 Tablet(s) PO as needed 201710/30/2018 Inactive metformin 1,000 mg tablet RxNorm: 531908 Tablet(s) 1 TA BLET(S) PO QD NEEDS UPDATED LABS 09/06/2017 09/20/2017 Inactive metformin 1,000 mg tablet RxNorm: 142516 1 TABLET(S) PO QD NEED S UPDATED LABS 08/24/2017 09/05/2017 Inactive metformin 1,000 mg tablet RxNorm: 200916 1 Tablet(s) PO QD Need s updated labs 08/08/2017 08/22/2017 Inactive Lexapro 20 mg tablet RxNorm: 925301 1 TABLET(S) PO QD 07/17/201708/29 Inactive pseudoephedrine 30 mg tablet RxNorm: 3648614 1-2 Tablet(s) PO Q6H 0 07/05/2017 06/12/2018 Inactive Augmentin 875 mg-125 mg tablet RxNorm: 320727 1 Tablet(s) PO BID 07/14/2017 Inactive metformin 1,000 mg tablet RxNorm: 329153 1 Tablet(s) PO QD Need s updated labs 07/04/2017 08/08/2017 Inactive metformin 1,000 mg tablet RxNorm: 493466 1 Tablet(s) PO QD Need s updated labs 05/30/2017 07/04/2017 Inactive Levaquin 750 mg tablet RxNorm: 229647 1 Tablet(s) PO QD 03/04/2017 Inactive ProAir HFA 90 mcg/actuation aerosol inhaler RxNorm: 631507 2 Puff(s) INH Q4H as needed 03/04/2017 07/04/2017 Inactive if insurance das s not cover, please switch to ventolin. Tamiflu 75 mg capsule RxNorm: 562183 1 Capsule(s) PO QD 03/04/2017 Inactive metformin 1,000 mg tablet RxNorm: 640000 1 Tablet(s) PO QD 02/16/20 17 05/15/2017 Inactive Lexapro 20 mg tablet RxNorm: 598600 1 Tablet(s) PO QD 01/17/201707/2017 Inactive cephalexin 500 mg capsule RxNorm: 313099 1 Capsule(s) PO TID 201612/08/2016 Inactive pantoprazole 40 mg tablet,delayed release RxNorm: 187314 1 Tabl et(s) PO QD 11/16/2016 03/15/2017 Inactive metformin 1,000 mg tablet RxNorm: 059395 TAKE 1 TABLET BY MOUTH EVERY DAY 10/10/2016 02/15/2017 Inactive Flonase Allergy Relief 50 mcg/actuation nasal spray,suspensi on RxNorm: 9176523 2 [place] NASAL QHS 09/06/2016 11/15/2016 Inactive Singulair 10 mg tablet RxNorm: 212893 1 Tablet(s) PO QHS 09/06/2016 0 11/15/2016 Inactive Singulair 10 mg tablet RxNorm: 733090 1 Tablet(s) PO QHS 08/12/2016 0 09/05/2016 Inactive ProAir HFA 90 mcg/actuation aerosol inhaler RxNorm: 658038 1 Puff(s) INH Q4H as needed 08/12/2016 08/15/2016 Inactive Medrol (Ab) 4 mg tablets in a dose pack RxNorm: 697967 Tablet(s) PO As Directed 07/29/2016 08/15/2016 Inactive Lexapro 20 mg tablet RxNorm: 816635 1 Tablet(s) PO QD 07/06/201612/30 Inactive doxycycline hyclate 100 mg capsule RxNorm: 0494885 1 Capsule(s) PO BID 06/24/2016 06/23/2016 Inactive doxycycline hyclate 100 mg capsule RxNorm: 3598408 1 Capsule(s) PO BID 06/24/2016 07/03/2016 Inactive ProAir HFA 90 mcg/actuation aerosol inhaler RxNorm: 197468 1 Puff(s) INH Q4H as needed 06/23/2016 08/11/2016 Inactive prednisone 20 mg tablet RxNorm: 327038 1 Tablet(s) PO BID 06/23/2016 06/27/2016 Inactive metformin 1,000 mg tablet RxNorm: 428593 1 Tablet(s) PO QD 12/18/19 16 06/14/2016 Inactive Lexapro 20 mg tablet RxNorm: 289160 1 Tablet(s) PO QD 12/18/2015 0510/2016 Inactive prednisone 20 mg tablet RxNorm: 562285 Take 3 tabs PO Q D x 3 days, then 2 tabs PO QD x 3 days, then 1 tab PO QD x 3 days 12/01/2015 12/10/2015 Inacti ve albuterol sulfate 2.5 mg/3 mL (0.083 %) solution for n ebulization RxNorm: 244840 3 Milliliter(s) INH Q4H as needed 12/01/2015 07/04/2017 Inactiv e Singulair 10 mg tablet RxNorm: 060359 1 Tablet(s) PO QHS No Start D ate 08/11/2016 Inactive Breo Ellipta 100 mcg-25 mcg/dose powder for inhalation RxNor m: 9020438 1 Puff(s) INH QD No Start Date 02/01/2017 Inactive Zyrtec 10 mg tablet RxNorm: 2735640 1 Tablet(s) PO QAM No Start Date 11/15/2016 Inactive Xanax 0.25 mg tablet RxNorm: 419087 1 Tablet(s) PO as needed No Sta rt Date 09/21/2017 Inactive metformin 1,000 mg tablet RxNorm: 693699 1 Tablet(s) PO QD No Start Date 12/17/2015 Inactive Singulair 10 mg tablet RxNorm: 129531 1 Tablet(s) PO QHS No Start D ate 11/15/2016 Inactive metformin 1,000 mg tablet RxNorm: 412211 1 Tablet(s) PO QD No Start Date 02/14/2017 Inactive metformin 1,000 mg tablet RxNorm: 643632 1 Tablet(s) PO BID No Star t Date 09/26/2017 Inactive Trulicity 0.75 mg/0.5 mL subcutaneous pen injector RxNorm: 1 839731 0.75 Milligram(s) SQ QW No Start Date 08/27/2018 Inactive Medrol (Ab) 4 mg tablets in a dose pack RxNorm: 680979 Tablet(s) PO As Directed No Start Date 07/28/2016 Inactive Lexapro 20 mg tablet RxNorm: 091176 1 Tablet(s) PO QD No Start Date 1 Inactive Lexapro 20 mg tablet RxNorm: 187127 1 Tablet(s) PO QD No Start Date 0 07/09/2018 Inactive Medication Administered No Medication Administered data Immunizations Vaccine Codes Date Status Tetanus, Diptheria, Pertussis CVX: 115 11/30/2016 Co mplete Pneumococcal CVX: 133 03/09/2016 Complete Results Observation Observation Code Item Item Code Result Date S ervice Location VIRAL HEPATITIS PROFILE #2 41494 Hep A IgM Non-Reactive 06/20/2018 Unknown VIRAL HEPATITIS PROFILE #2 91405 Hep B Core IgM Non-Reac tive 06/20/2018 Unknown VIRAL HEPATITIS PROFILE #2 15689 Hepatitis C Ab Non-Reac tive 06/20/2018 Unknown VIRAL HEPATITIS PROFILE #2 32829 Hep Bs Ag Non-Reactive 06/20/2018 Unknown MEAN GLUC 3537650 Calc Mean Gluc 194 mg/dL 06/19/2018 Unkn own COMPREHENSIVE METABOLIC 34146 AST 94 U/L 2018 Unknown COMPREHENSIVE METABOLIC 53576 ALT 160 U/L 2018 Unknown COMPREHENSIVE METABOLIC 90527 BUN 9 mg/dL 2018 Unknown COMPREHENSIVE METABOLIC 82801 ALBUMIN 4.6 g/dL 2018 Unknown COMPREHENSIVE METABOLIC 88684 CHLORIDE 101 mmol/L 06/19 Unknown COMPREHENSIVE METABOLIC 61731 Bili Total 0.9 mg/dL 06/19 Unknown COMPREHENSIVE METABOLIC 53854 ALK PHOS 64 U/L 2018 Unknown COMPREHENSIVE METABOLIC 09251 SODIUM 136 mmol/L 06/19 Unknown COMPREHENSIVE METABOLIC 95749 CREATININE 0.58 mg/dL 05/30 Unknown COMPREHENSIVE METABOLIC 39266 CALCIUM 10.3 mg/dL 06/19 Unknown COMPREHENSIVE METABOLIC 09793 POTASSIUM 3.7 mmol/L 06/19 Unknown COMPREHENSIVE METABOLIC 04779 Total Protein 7.1 g/dL Unknown COMPREHENSIVE METABOLIC 99388 Glucose 187 mg/dL 2018 Unknown COMPREHENSIVE METABOLIC 82381 Bicarbonate 26 mmol/L 05/30 Unknown COMPREHENSIVE METABOLIC 33577 AGAP 9 mmol/L 2018 Unknown GLYCOSYLATED HEMOGLOBIN TEST 47661 Hgb A1c 02036-4 8.4 % 0 06/19/2018 Unknown COMPLETE BLOOD COUNT 1969532 WBC 6.2 10e9/L 06/20/19 19 Unknown COMPLETE BLOOD COUNT 6973127 RBC 4.70 10e12/L 2018 Unknown COMPLETE BLOOD COUNT 7073853 HEMOGLOBIN 13.4 g/dL 06/20/19 19 Unknown COMPLETE BLOOD COUNT 3751791 HEMATOCRIT 39.9 % 06/20/19 19 Unknown COMPLETE BLOOD COUNT 5512834 MCV 84.9 fL 9 Unknown COMPLETE BLOOD COUNT 5105077 MCH 28.5 pg 9 Unknown COMPLETE BLOOD COUNT 4807666 MCHC 33.6 g/dL 9 Unknown COMPLETE BLOOD COUNT 3106470 PLATELET COUNT 252 10e9/L Unknown COMPLETE BLOOD COUNT 3912120 Mean Plt Volume 12.2 fL Unknown COMPLETE BLOOD COUNT 6442719 Neut Auto 53.9 % 9 Unknown COMPLETE BLOOD COUNT 8206030 Lymph Auto 35.2 % 06/20/19 19 Unknown COMPLETE BLOOD COUNT 5840430 [place] Auto 7.1 % 9 Unknown COMPLETE BLOOD COUNT 5941318 Eos Auto 3.2 % 9 Unknown COMPLETE BLOOD COUNT 6072039 RDW 14.1 % 9 Unknown COMPLETE BLOOD COUNT 5676164 Baso Auto 0.6 % 9 Unknown COMPLETE BLOOD COUNT 2857051 Neutrophil Abs 3.34 10e9/L Unknown COMPLETE BLOOD COUNT 6951769 Lymphocyte Abs 2.18 10e9/L Unknown COMPLETE BLOOD COUNT 7591238 Monocyte Abs 0.44 10e9/L 05/30 Unknown COMPLETE BLOOD COUNT 3950275 Eosinophil Abs 0.20 10e9/L Unknown COMPLETE BLOOD COUNT 0746254 RDW-SD 42.7 fL 9 Unknown COMPLETE BLOOD COUNT 2764533 Basophil Abs 0.04 10e9/L 05/30 Unknown THYROID STIMULATING HORMONE 65479 TSH 1.976 uIU/mL 06/19/2018 Unknown GFR CALC 3735872 GFR Non Afr Amr >60 mL/min 06/19/2018 Un known GFR CALC 1607113 GFR Afr Amr >60 mL/min 06/19/2018 Unknow n SURESWAB(R), BACTERIAL VAGINOSIS/VAGINITIS 50626 BV CATEGORY: TNP 09/27/2017 [facility] [address] [place] [address] SURESWAB(R), BACTERIAL VAGINOSIS/VAGINITIS 52210 LACTOBACILLUS S PECIES DNR 09/27/2017 [facility] [address] [place] [address] SURESWAB(R), BACTERIAL VAGINOSIS/VAGINITIS 39840 ATOPOBIUM VAGIN AE DNR 09/27/2017 [facility] [address] [place] [address] SURESWAB(R), BACTERIAL VAGINOSIS/VAGINITIS 07581 MEGASPHAERA SPE CIES DNR 09/27/2017 [facility] [address] [place] [address] SURESWAB(R), BACTERIAL VAGINOSIS/VAGINITIS 55596 GARDNERELLA VAG INALIS DNR 09/27/2017 [facility] [address] [place] [address] SURESWAB(R), BACTERIAL VAGINOSIS/VAGINITIS 25044 SURESWAB(R) TRICHOMONAS VAGINALIS RNA, QL TMA TNP 09/27/2017 [facility] [address] [place] [address] SURESWAB(R), BACTERIAL VAGINOSIS/VAGINITIS 45994 C. ALBICANS, DN A TNP 09/27/2017 [facility] [address] [place] [address] SURESWAB(R), BACTERIAL VAGINOSIS/VAGINITIS 91826 C. GLABRATA, DN A DNR 09/27/2017 [facility] [address] [place], [place] [address] [address] SURESWAB(R), BACTERIAL VAGINOSIS/VAGINITIS 99038 C. TROPICALIS, DNA DNR 09/27/2017 [facility] [address] [place] [address] SURESWAB(R), BACTERIAL VAGINOSIS/VAGINITIS 42818 C. PARAPSILOSIS , DNA DNR 09/27/2017 [facility] [place] [address] THINPREP TIS AND HPV mRNA E6/E7 25237 REPORT STATUS: DNR 09/27/2017 [facility] [place] [address] THINPREP TIS AND HPV mRNA E6/E7 52309 CLINICAL INFORMATION: 09/27/2017 [facility] [address] [place] [address] THINPREP TIS AND HPV mRNA E6/E7 29323 LMP: 201709/27/2017 [facility] [place] [address] THINPREP TIS AND HPV mRNA E6/E7 46241 PREV. PAP: 09/27/2017 [facility] [place] [address] THINPREP TIS AND HPV mRNA E6/E7 10301 PREV. BX: 09/27/2017 [facility] [place] [address] THINPREP TIS AND HPV mRNA E6/E7 10761 SOURCE: Cerv ix 09/27/2017 [facility] [place] [address] THINPREP TIS AND HPV mRNA E6/E7 18867 STATEMENT OF ADEQUACY: 09/27/2017 [facility] [place] [address] THINPREP TIS AND HPV mRNA E6/E7 17262 GENERAL CATEGORIZATION: DNR 09/27/2017 [facility] [place] [address] THINPREP TIS AND HPV mRNA E6/E7 25793 INTERPRETATION/RESULT: 09/27/2017 [facility] [place] [address] THINPREP TIS AND HPV mRNA E6/E7 16242 INFECTION: DNR 09/27/2017 [facility] [place] [address] THINPREP TIS AND HPV mRNA E6/E7 98889 COMMENT: 09/27/2017 [facility] [place] [address] THINPREP TIS AND HPV mRNA E6/E7 20288 RN TRANSFER: 09/27/2017 [facility] [place] [address] THINPREP TIS AND HPV mRNA E6/E7 84383 REVIEW RN TRANSFER: DNR 09/27/2017 [facility] [place] [address] THINPREP TIS AND HPV mRNA E6/E7 29791 PATHOLOGIST: KHLOE Srivastava 09/27/2017 [facility] [place] [address] THINPREP TIS AND HPV mRNA E6/E7 73212 COMMENT 09/27/2017 [facility] [address] [address] THINPREP TIS AND HPV mRNA E6/E7 46359 HPV mRNA E6/E7 Not Detected 09/27/[address] [place] [address] CULTURE, GENITAL 02911 CULTURE, GENITAL SEE NOTE [facility] [address] [place] [address] CULTURE, THROAT 44107 CULTURE, THROAT SEE NOTE 07/30 [facility] [address] [address] Procedures Procedure Codes Date DRAIN/INJECT JOINT/BURSA CPT-4: 07446 01/23/2019 ROUTINE VENIPUNCTURE CPT-4: 72192 06/19/2018 COMPLETE CBC W/AUTO DIFF WBC CPT-4: 96875 06/19/2018 COMPREHEN METABOLIC PANEL CPT-4: 47920 06/19/2018 A1C HPLC CPT-4: 83000 06/19/2018 ASSAY THYROID STIM HORMONE CPT-4: 87742 06/19/2018 URINALYSIS NONAUTO W/O SCOPE CPT-4: 62703 06/19/2018 ACUTE HEPATITIS PANEL CPT-4: 01194 06/19/2018 INFLUENZA ASSAY W/OPTIC CPT-4: 82980 04/26/2018 STREP A ASSAY W/OPTIC CPT-4: 67264 04/25/2018 THROAT CULTURE CPT-4: 98605 04/25/2018 CEFTRIAXONE SODIUM INJECTION CPT-4: J0696 11/10/2017 DEXAMETHASONE SODIUM PHOS CPT-4: J1100 11/10/2017 THER/PROPH/DIAG INJ SC/IM CPT-4: 20733 11/10/2017 TRIAMCINOLONE ACET INJ NOS CPT-4: J3301 11/10/2017 OCCULT BLOOD FECES CPT-4: 78457 09/22/2017 SURESWAB(R), BACTERIAL VAGINOSIS/VAGINITIS CPT-4: 10459 09/22/2017 CULTURE, GENITAL CPT-4: 53660 09/22/2017 TDAP VACCINE 7 YRS/> IM CPT-4: 76567 11/30/2016 IMMUNIZATION ADMIN CPT-4: 02565 11/30/2016 REMOVAL OF FOOT FOREIGN BODY CPT-4: 68151 11/29/2016 REMOVAL OF SKIN TAGS <W/15 CPT-4: 16911 10/05/2016 CULTURE, THROAT CPT-4: 47199 08/16/2016 PNEUMOCOCCAL VACC 13 AYSHA IM CPT-4: 29212 03/09/2016 IMMUNIZATION ADMIN CPT-4: 32599 03/09/2016 THER/PROPH/DIAG INJ SC/IM CPT-4: 76822 12/11/2015 TRIAMCINOLONE ACET INJ NOS CPT-4: J3301 12/11/2015 DEXAMETHASONE SODIUM PHOS CPT-4: J1100 12/11/2015 Vital Signs Date Vital 01/23/2019 Blood Pressure 1: 126/80 Code: 8480-6 [...] 1: 126/84 Code: 8480-6 BMI: 39.9 Code: 74677-4 Heart Rate 1: 80 bpm Height: 5'2" [...] 1: 126/82 Code: 8480-6 BMI: 40.6 Code: 17079-6 Heart Rate 1: 72 bpm Height: 5'2" [...] 1: 124/68 Code: 8480-6 BMI: 41.7 Code: 41180-6 Heart Rate 1: 66 bpm Height: 5'2" Respiratory Rate: 20 bpm SpO2: 98% Tempera ture: 36.2 (C) / 97.2 (F) Weight: 228 lbs 09/22/2017 Blood Pressure 1: 142/80 Code: 8480-6 BMI: 41.3 Code: 88833-3 Heart Rate 1: 60 bpm Height: 5'2" Respiratory Rate: 20 bpm SpO2: 98% Tempera ture: 36.3 (C) / 97.3 (F) Weight: 226 lbs 07/05/2017 Blood Pressure 1: 129/82 Code: 8480-6 BMI: 42.3 Code: 05548-2 Heart Rate 1: 60 bpm Height: 5'2" SpO2: 97% Temperature: 36.4 (C) / 97.6 (F) Weight: 231 lbs 03/04/2017 Blood Pressure 1: 142/80 Code: 8480-6 BMI: 42.4 Code: 38431-0 Heart Rate 1: 74 bpm Height: 5'2" Respiratory Rate: 24 bpm SpO2: 97% Tempera ture: 36.4 (C) / 97.6 (F) Weight: 232 lbs 02/02/2017 Blood Pressure 1: 146/82 Code: 8480-6 BMI: 42.4 Code: 80172-3 Heart Rate 1: 84 bpm Height: 5'2" Respiratory Rate: 20 bpm SpO2: 98% Tempera ture: 36.6 (C) / 97.9 (F) Weight: 232 lbs 11/29/2016 Blood Pressure 1: 126/78 Code: 8480-6 Heart Rate 1: 76 bpm Height: 5'2" Respiratory Rate: 20 bpm SpO2: 96% Temperature: 36 .9 (C) / 98.4 (F) 11/16/2016 Blood Pressure 1: 136/94 Code: 8480-6 BMI: 42.6 Code: 00785-5 Heart Rate 1: 68 bpm Height: 5'2" Respiratory Rate: 20 bpm SpO2: 96% Tempera ture: 36.9 (C) / 98.4 (F) Weight: 233 lbs 10/05/2016 Blood Pressure 1: 112 Code: 8480-6 BMI: 41.5 Code: 04206-8 Heart Rate 1: 80 bpm Height: 5'2" Respiratory Rate: 20 bpm SpO2: 97% Tempera ture: 36.8 (C) / 98.2 (F) Weight: 227 lbs 09/06/2016 Blood Pressure 1: 126/82 Code: 8480-6 BMI: 42.4 Code: 55730-5 Heart Rate 1: 64 bpm Height: 5'2" Respiratory Rate: 20 bpm SpO2: 98% Tempera ture: 37.0 (C) / 98.6 (F) Weight: 232 lbs 08/16/2016 Blood Pressure 1: 136/82 Code: 8480-6 BMI: 42.1 Code: 17328-8 Heart Rate 1: 72 bpm Height: 5'2" [...] 1: 144/80 Code: 8480-6 BMI: 40.4 Code: 94719-7 Heart Rate 1: 92 bpm Height: 5'2" Respiratory Rate: 20 bpm SpO2: 95% Tempera ture: 36.8 (C) / 98.2 (F) Weight: 221 lbs 12/08/2015 Blood Pressure 1: 124/78 Code: 8480-6 Heart Rate 1: 108 bpm Height: 5'2" Respiratory Rate: 22 bpm SpO2: 95% Temperature: 36.2 (C) / 97.2 (F) Weight: 12/01/2015 Blood Pressure 1: 124/78 Code: 8480-6 BMI: 40.4 Code: 54866-0 Heart Rate 1: 92 bpm Height: 5'2" Respiratory Rate: 24 bpm SpO2: 93% Tempera ture: 35.6 (C) / 96.0 (F) Weight: 221 lbs Functional Status No Functional Status data Reason For Visit Reason For Visit Effective Dates Notes knee pain 01/23/2019 headache 10/31/2018 follow up 08/08/2018 follow up 07/06/2018 fatigue 06/19/2018 dizziness 06/13/2018 started yesterday at 2:30 lab draw 04/26/2018 here for flu swab cough 04/25/2018 sore throat 04/14/2018 Urgent Care treated her with Zpack and finished yesterday however she wasn't checked for flu or strep follow up 01/31/2018 lower leg pain 01/23/2018 right leg cough 11/10/2017 patient was seen at [facility] and given Levaquin and 5 day [...] care Encounters Encounter Performer Location Codes Date ([id number]) OFFICE/OUTPATIENT VISIT EST Diagnosis: Acute upper respiratory infection, unspecified[ICD10: J06.9] Diagnosis: Generalized anxiety disorder[ICD10: F41.1] Diagnosis: Type 2 diabetes mellitus with hyperglycemia[ICD10: E11.65] Diagnosis: Encounter for therapeutic drug level monitoring[ICD10: Z51.81] Lisbeth Kruger NIRMALA [facility] CPT-4: 41310 10/31/2018 ([id number]) OFFICE/OUTPATIENT VISIT EST Diagnosis: Type 2 diabetes mellitus with hyperglycemia[ICD10: E11.65] Diagnosis: Essential (primary) hypertension[ICD10: I10] Nirmala GIMENEZ [employer] [facility] CPT-4: 34629 08/08/2018 ([id number]) OFFICE/OUTPATIENT VISIT EST Diagnosis: Essential (primary) hypertension[ICD10: I10] Diagnosis: Type 2 diabetes mellitus with hyperglycemia[ICD10: E11.65] Diagnosis: Other fatigue[ICD10: R53.83] Nirmala GIMENEZ [employer] [facility] CPT-4: 65454 07/06/2018 ([id number]) OFFICE/OUTPATIENT VISIT EST Diagnosis: Dizziness and giddiness[ICD10: R42] Diagnosis: Elevated blood-pressure reading, without diagnosis of hypertension[ICD10: R03.0] Shell Murguia [facility] CPT- 4: 11809 06/19/2018 ([id number]) OFFICE/OUTPATIENT VISIT EST Diagnosis: Essential (primary) hypertension[ICD10: I10] Diagnosis: Dizziness and giddiness[ICD10: R42] Shell Murguia [facility] CPT-4: 20045 06/13/2018 ([id number]) NURSE/OUTPATIENT VISIT EST Diagnosis: Influenza due to identified novel influenza A virus with other manifestations[ICD10: J09.X9] Nirmala JARAMILLO [facility] CPT-4: 96694 04/26/2018 OFFICE/OUTPATIENT VISIT EST Diagnosis: Pain in throat[ICD10: R07.0] Diagnosis: Acute pharyngitis, unspecified[ICD10: J02.9] Shell JARAMILLO [facility] CPT-4: 00988 04/25/2018 ([id number]) OFFICE/OUTPATIENT VISIT EST Diagnosis: Acute sinusitis, unspecified[ICD10: J01.90] Diagnosis: Paresthesia of skin[ICD10: R20.2] Nirmala ORNELASLIN Joselito JARAMILLO [facility] CPT-4: 61487 04/14/2018 ([id number]) OFFICE/OUTPATIENT VISIT EST Diagnosis: Pain in right leg[ICD10: M79.604] Diagnosis: Sciatica, right side[ICD10: M54.31] Nirmala Ella JOSE LUIS RUIZ Shantal VENCESManzama [facility] CPT-4: 58873 01/31/2018 ([id number]) OFFICE/OUTPATIENT VISIT EST Diagnosis: Pain in right leg[ICD10: M79.604] Lisbeth ORNELASLIN Joselito JARAMILLO [facility] CPT-4: 13421 01/23/2018 ([id number]) OFFICE/OUTPATIENT VISIT EST Diagnosis: Acute bronchitis, unspecified[ICD10: J20.9] Lisbeth ORNELASLINE Shantal JARAMILLO [facility] CPT-4: 50864 11/10/2017 ([id number]) PREV VISIT EST AGE 40-64 Diagnosis: Encounter [...] Nonalcoholic steatohepatitis (MOORE)[ICD10: K75.81] Lisbeth JARAMILLO DO [facility] CPT-4: 29393 09/22/2017 ([id number]) OFFICE/OUTPATIENT VISIT EST Diagnosis: Acute sinusitis, unspecified[ICD10: J01.90] Lisbeth JARAMILLO DO [facility] CPT-4: 05354 07/05/2017 OFFICE/OUTPATIENT VISIT EST Diagnosis: Pneumonia, unspecified organism[ICD10: J18.9] Lisbeth JARAMILLO DO [facility] CPT-4: 06617 03/04/2017 ([id number]) OFFICE/OUTPATIENT VISIT EST Diagnosis: Polycystic ovarian syndrome[ICD10: E28.2] Diagnosis: Abnormal levels of other serum enzymes[ICD10: R74.8] Diagnosis: Nonalcoholic steatohepatitis (MOORE)[ICD10: K75.81] Diagnosis: Impaired glucose tolerance (oral)[ICD10: R73.02] Nirmala JARAMILLO [employer] CPT-4: 36089 02/02/2017 ([id number]) OFFICE/OUTPATIENT VISIT EST Diagnosis: VACCINE FOR TDAP[ICD10: Z23] Nirmala JARAMILLO DO [employer] CPT-4: 50284 11/30/2016 ([id number]) OFFICE/OUTPATIENT VISIT EST Diagnosis: Cough[ICD10: R05] Diagnosis: Abnormal levels of other serum enzymes[ICD10: R74.8] Diagnosis: Family history of other endocrine, nutritional and metabolic diseases[ICD10: Z83.49] Nirmala JARAMILLO DO [facility] CPT-4: 73466 11/16/2016 ([id number]) OFFICE/OUTPATIENT VISIT EST Diagnosis: Cough[ICD10: R05] Diagnosis: Other seasonal allergic rhinitis[ICD10: J30.2] Diagnosis: Abnormal levels of other serum enzymes[ICD10: R74.8] Nirmala JARAMILLO DO [facility] CPT-4: 45334 09/06/2016 ([id number]) OFFICE/OUTPATIENT VISIT EST Diagnosis: Cough[ICD10: R05] Diagnosis: Polycystic ovarian syndrome[ICD10: E28.2] Nirmala JARAMILLO [facility] CPT-4: 37481 08/16/2016 ([id number]) OFFICE/OUTPATIENT VISIT EST Diagnosis: Acute bronchitis, unspecified[ICD10: J20.9] Diagnosis: Acute upper respiratory infection, unspecified[ICD10: J06.9] Ananya ORNELASLINE JeremyZee ELLA FRANKLIN [facility] CPT-4: 38961 06/23/2016 ([id number]) OFFICE/OUTPATIENT VISIT EST Diagnosis: PNEUMOCOCCAL VACCINE[ICD10: Z23] Nirmala JARAMILLO [facility] CPT-4: 46085 03/09/2016 ([id number]) OFFICE/OUTPATIENT VISIT EST Diagnosis: Pneumonia, unspecified organism[ICD10: J18.9] Diagnosis: Polycystic ovarian syndrome[ICD10: E28.2] Diagnosis: Generalized anxiety disorder[ICD10: F41.1] Nirmala LunaZee ELLA [facility] CPT-4: 63225 12/18/2015 ([id number]) OFFICE/OUTPATIENT VISIT EST Diagnosis: Cough[ICD10: R05] Diagnosis: Acute bronchospasm[ICD10: J98.01] Nirmala Yee JeremyZee ELLA [facility] CPT-4: 36661 12/11/2015 ([id number]) OFFICE/OUTPATIENT VISIT EST Diagnosis: Pneumonia, unspecified organism[ICD10: J18.9] Ananya ORNELASLINE JeremyZee ELLA FRANKLIN [facility] CPT-4: 94221 12/08/2015 OFFICE/OUTPATIENT VISIT NEW Diagnosis: Pneumonia, unspecified organism[ICD10: J18.9] Ananya ORNELASLINE JeremyZee ELLA [facility] CPT-4: 55463 12/01/2015 Plan of Care Planned Activity Notes Codes Status Date Visit Diagnosis Plan: Tibial collateral bursitis of ri ght knee Discussion: Bursa injection as above PELON wrap/rest Notify in 1-2 weeks how knee is doing ICD-9 : 726.62 ICD-10 : M76.41 01/23/2019 Appointment: [phone] [facility] [facility] 01/23/2019 Care Plan: Referral Order SNOMED-CT : 30 [id number] Pending 01/23/2019 Visit Diagnosis Plan: Type 2 diabetes mellitus with hy perglycemia Discussion: greg ozrupaic and will prescribe trulicity. coupon card given [...] ICD-10 : F41.1 10/31/2018 Appointment: Lisbeth Kruger [address] [place], [place] [id number] ACUTE ILLNESS 10/31/2018 Patient Education: Trulicity- [employer] Coupon [phone] https://www.TasteBook.Lagotek/samplemd/resources/getResource/61/x908f3e8-d399-2t21-uj Completed 10/31/2018 Patient Education: Xanax- [employer] Coupon [id number] https://www.TasteBook.Lagotek/samplemd/resources/getResource/61/xb73950y-7930-29b8-dq b2-570a694p3405.pdf Completed 10/31/2018 Patient Education: prednisone- [employer] Coupon [phone] https://www.The Poker Barrel/samplemd/resources/getResource/61/091dz872-1157-52s3-32 Completed 10/31/2018 Patient Education: ProAir HFA- [employer] Coupon [phone] https://www.[employer] Poker [employer]/samplemd/resources/getResource/61/7aa78357-55k2-9370-27 Completed 10/31/2018 Visit Diagnosis Plan: Type 2 diabetes mellitus with hy perglycemia Discussion: Lab discussed Accuchecks daily Continue current meds Check CMP and HbA1C end of September then fwup ICD-9 : 250.02 ICD-10 : E11.65 08/08/2018 Visit Diagnosis Plan: Essential (primary) hypertension Discussion: Stable ICD-9 : 401.9 ICD-10 : I10 08/08/2018 Appointment: Nirmala Jaramillo WPtel: [address] [place] [address] [place] FOLLOW UP 08/08/2018 Visit Diagnosis Plan: [...] : E11.65 07/06/2018 Appointment: Nirmala Jaramillo WPtel: [address] [place], [place] [phone] [place] FOLLOW UP 07/06/2018 Appointment: Nirmala Jaramillo WPtel: [address] [place], [place] [phone] [place] Consult 06/22/2018 Patient Education: lisinopril- [employer] Marilu [phone] https://www.TasteBook.Lagotek/samplemd/resources/getResource/61/227b81x8-lmb7-8383-zl Completed 06/22/2018 Visit Diagnosis Plan: Dizziness and giddiness Discussi on: 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 ICD-9 : 780.4 ICD-10 : R42 06/19/2018 Visit Diagnosis Plan: Essential (primary) hypertension Discussion: Increased lisinopril from 5 QD to 20 mg QD. Labs today- CBC, CMP, TSH, A1C. UA today- trace protein. hematuria (patient on period). ICD-9 : 401.9 ICD-10 : I10 06/19/2018 Appointment: Shell Vega [address] [place], [place] [phone] FOLLOW UP 06/19/2018 Visit Diagnosis Plan: Dizziness [...] ICD-10 : I10 06/13/2018 Appointment: Shell Vega [address] [place], [place] [phone] ACUTE ILLNESS 06/13/2018 Appointment: Nirmala Jaramillo WPtel: [phone] [place] [id number] FLU SWAB 04/26/2018 Visit Diagnosis Plan: Pain in throat Discussion: Rapid Strep A- negative Throat culture- pending. Will call patient with results. Prednisone 10 mg TID x 5 days. Supportive care- fluids, tylenol for pain, humidified air. ICD-9 : 784.1 ICD-10 : R07.0 04/25/2018 Appointment: Shell Vega [address] [place], [place] [phone] ACUTE ILLNESS 04/25/2018 Visit Plan: Saline nasal [...] prn. Tyle... 04/14/2018 Appointment: Nirmala Jaramillo WPtel: [address] [place], [place] [phone] ACUTE ILLNESS 04/14/2018 Patient Education: prednisone- [employer] Coupon [phone] https://www.The Poker Barrel/sampleCoreFlow/resources/getResource/61/0htb61jx-r5j3-43r6-r6 Completed 04/14/2018 Visit Diagnosis Plan: Pain in right leg Discussion: Ch dickson right tib/fib x-ray and start celebrex May need PT ICD-9 : 729.5 ICD-10 : M79.604 01/31/2018 Visit Diagnosis Plan: Sciatica, right side Discussion: Check L/S spine x-ray ICD-9 : 724.3 ICD-10 : M54.31 01/31/2018 Appointment: Nirmala Jaramillo WPtel: [address] [place] [address] FOLLOW UP 01/31/2018 Care Plan: X-RAY EXAM L-S SPINE 2/3 VWS LOINC : 07257-5 Pending 01/31/2018 Care Plan: X-RAY EXAM OF LOWER LEG LOINC : 73524-2 Pending 01/31/2018 Visit Diagnosis Plan: Pain in [...] : M79.604 01/23/2018 Appointment: Lisbeth Kruger [address] [facility]66[facility] ACUTE ILLNESS 01/23/2018 Visit Diagnosis Plan: Acute [...] ICD-10 : J20.9 11/10/2017 Appointment: Lisbeth Kruger [address] [place], [place] [phone] ACUTE ILLNESS 11/10/2017 Patient Education: Patient Medication Summary Completed 11/10/2017 Care Plan: CHEST X-RAY 2VW FRONTAL&LATL LOINC : 68452-7 Pending 11/10/2017 Patient Education: Patient Medication Summary Completed 09/26/2017 Care Plan: A1C HPLC LOINC : 70637-9 Pending 09/26/2017 Visit Diagnosis Plan: Encounter for scre ening mammogram for malignant neoplasm of breast Discussion: mammogram ordered to be comp leted at [facility]. breast exam performed in office. ICD-9 : V76.11 ICD-10 : Z12.31 09/22/2017 Visit Diagnosis Plan: Impaired glucose tolerance (oral ) Discussion: metformin daily. will update fasting labs and patient to have completed this week or first part of next. ICD-9 : 790.22 ICD-10 : R73.02 09/22/2017 Visit Diagnosis Plan: Encounter for gene [facility] adult medical examination without abnormal findings Discussion: fasting blood work ordered t o be obtained at [facility] in the next few [...] ICD-10 : Z01.411 09/22/2017 Appointment: Lisbeth Kruger [address] [facility] Annual Well Visit 09/22/2017 Patient Education: Patient [...] : J01.90 07/05/2017 Appointment: Lisbeth Kruger [address] [facility] ACUTE ILLNESS 07/05/2017 Patient Education: Patient Medication [...] : J18.9 03/04/2017 Appointment: Lisbeth Kruger [address] [facility] FOLLOW UP 03/04/2017 Patient Education: Patient Medication [...] : R73.02 02/02/2017 Appointment: Nirmala Jaramillo WPtel: [phone] [facility] FOLLOW UP 02/02/2017 Patient Education: Patient Medication Summary Completed 02/02/2017 Care Plan: Referral Order SNOMED-CT : 30 9827823 Pending 02/02/2017 Patient Education: Patient Medication Summary Completed 01/28/2017 Care Plan: ACUTE HEPATITIS PANEL LOINC : 94164-6 Pending 01/28/2017 Patient Education: Patient Medication Summary Completed 01/26/2017 Care Plan: COMPREHEN METABOLIC PANEL [place] : 68128-8 Pending 01/26/2017 Care Plan: A1C HPLC LOINC : 74995-0 Pending 01/26/2017 Appointment: Nirmala Jaramillotel: [address] [place], [place] [phone] [place] INJECTION 11/30/2016 Referral: Sav Goff[address] [place] [address] [address] [id number] Referral Initiated 11/30/2016 Patient Education: Patient Medication [...] : S90.852A 11/29/2016 Appointment: Nirmala Jaramillo WPtel: [address] [place], [place] [phone] ACUTE ILLNESS 11/29/2016 Patient [...] : R74.8 11/16/2016 Appointment: Nirmala Jaramillo WPtel: [address] [place], [place] [phone] [place] FOLLOW UP 11/16/2016 Patient Education: Patient Medication Summary Completed 11/16/2016 Care Plan: Referral Order SNOMED-CT : 30 6157728 Pending 11/16/2016 Appointment: Nirmala Jaramillo WPtel: [address] [place], [place] [phone] RESCHEDULED 11/08/2016 Visit Diagnosis Plan: Other hypertrophic disorders of the skin Discussion: Irritated skin tags excised at base and then bases cauterized ICD-9 : 701.9 ICD-10 : L91.8 10/05/2016 Appointment: Nirmala Jaramillo WPtel: [address] [place], [place] [phone] confirmed-sp OFFICE SURGERY 10/05/2016 Patient Education: Patient Medication Summary Completed 10/05/2016 Appointment: Nirmala Jaramillo WPtel: [address] [place], [place] [id number] [place] Per doctor~ 09/09 canceled due to [...] : R74.8 09/06/2016 Appointment: Nirmala Jaramillo WPtel: [address] [place], [place] [phone] [place] 7/6 lm~sl FOLLOW UP 09/06/2016 Patient Education: Patient Medication Summary Completed 09/06/2016 Patient Education: Patient Medication Summary Completed 08/18/2016 Care Plan: ACUTE HEPATITIS PANEL LOINC : 73957-8 Pending 08/18/2016 Care Plan: TICKBORNE DISEASE PANEL [...] : E28.2 08/16/2016 Appointment: Nirmala Jaramillo WPtel: [address] [place], [place] [phone] 08/13 confirmed `sl WORK IN 08/16/2016 Patient Education: Patient Medication Summary Completed 08/16/2016 Care Plan: MAMMOGRAM SCREENING Grandmother Juliane Sahu in late LOINC : 48990-7 Pending 08/16/2016 Patient Education: Patient Medication Summary Completed 07/27/2016 Visit Diagnosis Plan: Acute bronchitis, unspecified Di scussion: Rxs as above Borrow neb machine until home with hers if needed OTC meds reviewed Watch BSs closely Follow up if not improving ICD-9 : 466.0 ICD-10 : J20.9 06/23/2016 Appointment: Ananya Lopez [address] [place], [place] [address] ACUTE ILLNESS 06/23/2016 Patient Education: Patient Medication Summary Completed 06/23/2016 Appointment: Nirmala Jaramillo WPtel: [address] [place], [place] [phone] [place] INJECTION 03/09/2016 Patient Education: Patient Medication Summary Completed 03/09/2016 Appointment: Nirmala Jaramillo WPtel: [address] [place], [place] [phone] [place] INJECTION 02/16/2016 Visit Plan: Decrease Breo to 100/25mcg 1 p BID for another week Flu shot with Prevnar 13 next week if covered Refill metformin 12/18/2015 Appointment: Nirmala Jaramillo WPtel: [address] [place], [place] [phone] 12/16 confirmed`sl FOLLOW UP 12/18/2015 Patient Education: [...] Recheck 1week 12/11/2015 Appointment: Nirmala Jaramillo WPtel: [phone] [place] [address] ACUTE ILLNESS 12/11/2015 Patient Education: Patient Medication Summary Completed 12/11/2015 Visit Plan: Patient sounds and appears i mproved Continue mucinex, vit C, breathing treatments, humidifier, vicks, etc CXR on am and will call with report before the weekend Monitor for any return of concerning symptoms - fevers, chills, worsening cough, etc 12/08/2015 Appointment: Ananya Lopez [address] [place] [address] 12/04 Lm~sl....confirmed-sp FOLLOW UP 11/28 Patient Education: Patient Medication Summary Completed 12/08/2015 Visit Plan: Finish levaquin ordered by [employer] Add above meds has nebulizer machine she [...] continuing to improve 12/01/2015 Appointment: Ananya Lopez [address] [place] [address] 11/30 lm ~sl NEW PATIENT 12/01/2015 Patient Education: Patient Medication Summary Completed 12/01/2015 Referral: Dhruv Montalvo WPtel: [phone] [facility] [place] [address] [place] Referral Appointment Requested Referral: Chan Chavez WPtel: [address] [facility] [address] [id number] [place] Referral Completed Referral: Dhruv Lubin WPtel: [address] [facility] [address] [place] [address] [place] Referral Initiated Instructions Comment . Saline [...] cough, etc . Finish levaquin ordered by [employer] Add above meds has nebulizer machine she [...]
--- OUTSIDE RECORDS SUMMARY | 2019-05-18 13:19 | XMS REPORT | CCD ---
Author Author Veronica Lopez Organization [facility] Address [address] [place] [address] Phone Unavailable Care Team Providers Care Manufacturing Production Manager Name Role Phone Nirmala Jaramillo D.O., PP Unavailable CCM Unavailable Summary Purpose Interface Exchange Insurance Providers Payer name Policy type / Coverage type Covered green party ID Effective Begin Date Effective End Date [employer] Commercial Insurance [id number] Unknown Family History Family History data not found Social History Social History Element Codes Description Effective Dates Marital status Unknown 12/01/2015 Number of children Unknown 3 12/01/2015 Employment Unknown Currently employed 12/01/[address]: 999360735 Never smoker 12/01/[address]: 135726123 Never drinks alcohol 2015 Allergies, Adverse Reactions, [...] mg/0.5 mL subcutaneous pen injector RxNorm: 1 448850 INJECT 1 DOSE SUB-Q ONCE WEEKLY 02/19/2019 03/18/2019 Active amlodipine 5 mg tablet RxNorm: 696195 TAKE 1 TABLET BY MOUTH 02/19/2019 05/19/2019 Active Lexapro 20 mg tablet RxNorm: 184729 1 TABLET(S) PO QD 01/04/2019 02/0 05/2019 Active lisinopril 40 mg tablet RxNorm: 733918 1 TABLET(S) PO QD 12/05/2018 0 04/03/2019 Active scopolamine 1 mg over 3 days transdermal patch RxNorm: 54454 2 1 Application Transdermal Q72H 11/27/2018 11/26/2018 Inactive scopolamine 1 mg over 3 days transdermal patch RxNorm: 72382 2 1 Application Transdermal Q72H 11/27/2018 11/27/2018 Inactive ondansetron HCl 4 mg tablet RxNorm: 100411 1 Tablet(s) Oral Q4H as needed for nausea 11/27/2018 11/27/2018 Inactive ondansetron HCl 4 mg tablet RxNorm: 707614 1 Tablet(s) Oral Q4H as needed for nausea 11/27/2018 11/26/2018 Inactive amlodipine 5 mg tablet RxNorm: 746195 1 TABLET(S) PO QD 11/20/2018 Inactive Xanax 0.25 mg tablet RxNorm: 917553 1 Tablet(s) PO as needed 2018 No Stop Date Active ProAir HFA 90 mcg/actuation aerosol inhaler RxNorm: 093754 2 Puff(s) INH Q4H as needed 10/31/2018 No Stop Date Active if insurance das s not cover, please switch to ventolin. prednisone 20 mg tablet RxNorm: 899446 1 Tablet(s) PO BID 10/31/2018 11/04/2018 Inactive Zithromax Z-Ab 250 mg tablet RxNorm: 482341 Tablet(s) take as directed PO 10/31/2018 01/22/2019 Inactive Trulicity 0.75 mg/0.5 mL subcutaneous pen injector RxNorm: 1 318460 1 Unit Dose SQ QW 10/31/2018 02/18/2019 Inactive Ozempic 0.25 mg or 0.5 mg (2 mg/1.5 mL) subcutaneous p en injector RxNorm: 7408368 0.5 Milligram(s) SQ QW 10/09/2018 10/30/2018 Inactive Ozempic 0.25 mg or 0.5 mg (2 mg/1.5 mL) subcutaneous p en injector RxNorm: 7043605 0.5 Gram(s) SQ QW 10/05/2018 10/08/2018 Inactive lisinopril 40 mg tablet RxNorm: 404594 1 Tablet(s) PO QD 09/18/2018 1 Inactive metformin 1,000 mg tablet RxNorm: 379622 1 TABLET(S) PO QD 09/07/19 19 03/04/2019 Active Trulicity 0.75 mg/0.5 mL subcutaneous pen injector RxNorm: 1 183446 0.75 Milligram(s) SQ QW Replaces Ozemic 08/28/2018 10/30/2018 Inactive replaces Ozempic Ozempic 0.25 mg or 0.5 mg (2 mg/1.5 mL) subcutaneous p en injector RxNorm: 9281090 0.5 Milligram(s) SQ WEEKLY 08/28/2018 10/05/2018 Inactive metformin 1,000 mg tablet RxNorm: 461298 1 Tablet(s) PO QD 08/24/19 19 09/05/2018 Inactive Ozempic 0.25 mg or 0.5 mg (2 mg/1.5 mL) subcutaneous p en injector RxNorm: 2168629 0.5 Milligram(s) SQ WEEKLY 08/03/2018 08/27/2018 Inactive amlodipine 5 mg tablet RxNorm: 289124 1 Tablet(s) PO QD 07/25/2018 Inactive Lexapro 20 mg tablet RxNorm: 800879 1 Tablet(s) PO QD 07/10/201807/2018 Inactive lisinopril 40 mg tablet RxNorm: 155150 1 Tablet(s) PO QD 07/10/2018 0 09/07/2018 Inactive amlodipine 5 mg tablet RxNorm: 361562 1 Tablet(s) PO QD 06/22/2018 Inactive lisinopril 40 mg tablet RxNorm: 140071 1 Tablet(s) PO QD 06/22/2018 0 07/09/2018 Inactive lisinopril 20 mg tablet RxNorm: 868248 1 Tablet(s) PO QD 06/19/2018 0 06/21/2018 Inactive lisinopril 5 mg tablet RxNorm: 457555 1 Tablet(s) PO QD 06/13/2018 Inactive metformin 1,000 mg tablet RxNorm: 550622 Tablet(s) TABLET(S) 1 TABLET(S) PO QD 06/08/2018 08/22/2018 Inactive Tamiflu 75 mg capsule RxNorm: 722600 1 Capsule(s) PO BID 04/26/2018 0 04/30/2018 Inactive Tamiflu 75 mg capsule RxNorm: 131397 1 Capsule(s) PO BID 04/26/2018 0 04/25/2018 Inactive prednisone 10 mg tablet RxNorm: 972374 1 Tablet(s) PO TID 04/25/2018 04/29/2018 Inactive prednisone 20 mg tablet RxNorm: 532755 1 Tablet(s) PO BID 04/14/2018 04/20/2018 Inactive Augmentin 500 mg-125 mg tablet RxNorm: 186188 1 Tablet(s) PO BID 04/20/2018 Inactive metformin 1,000 mg tablet RxNorm: 313652 TABLET(S) 1 TABLET(S) PO Q D 03/09/2018 06/06/2018 Inactive celecoxib 200 mg capsule RxNorm: 396034 1 Capsule(s) PO BID for diana n 01/31/2018 03/01/2018 Inactive metformin 1,000 mg tablet RxNorm: 319472 1 Tablet(s) PO BID 018 No Stop Date Active Medrol (Ab) 4 mg tablets in a dose pack RxNorm: 774489 Tablet(s) PO take as directed 01/23/2018 01/30/2018 Inactive Lexapro 20 mg tablet RxNorm: 714276 Tablet(s) 1 TABLET(S) PO QD 06/21/2018 Inactive Lexapro 20 mg tablet RxNorm: 485370 Tablet(s) 1 TABLET(S) PO QD 07/201701/22/2018 Inactive metformin 1,000 mg tablet RxNorm: 535255 1 Tablet(s) PO BID 018 01/22/2018 Inactive Lexapro 20 mg tablet RxNorm: 400416 Tablet(s) 1 TABLET(S) PO QD 11/02/2017 Inactive metformin 1,000 mg tablet RxNorm: 575383 Tablet(s) 1 TABLET(S) PO Q D 09/22/2017 09/26/2017 Inactive Xanax 0.25 mg tablet RxNorm: 084381 1 Tablet(s) PO as needed 201710/30/2018 Inactive metformin 1,000 mg tablet RxNorm: 904182 Tablet(s) 1 TA BLET(S) PO QD NEEDS UPDATED LABS 09/06/2017 09/20/2017 Inactive metformin 1,000 mg tablet RxNorm: 954285 1 TABLET(S) PO QD NEED S UPDATED LABS 08/24/2017 09/05/2017 Inactive metformin 1,000 mg tablet RxNorm: 741322 1 Tablet(s) PO QD Need s updated labs 08/08/2017 08/22/2017 Inactive Lexapro 20 mg tablet RxNorm: 693370 1 TABLET(S) PO QD 07/17/201708/29 Inactive pseudoephedrine 30 mg tablet RxNorm: 7453469 1-2 Tablet(s) PO Q6H 0 07/05/2017 06/12/2018 Inactive Augmentin 875 mg-125 mg tablet RxNorm: 734751 1 Tablet(s) PO BID 07/14/2017 Inactive metformin 1,000 mg tablet RxNorm: 348000 1 Tablet(s) PO QD Need s updated labs 07/04/2017 08/08/2017 Inactive metformin 1,000 mg tablet RxNorm: 979063 1 Tablet(s) PO QD Need s updated labs 05/30/2017 07/04/2017 Inactive Levaquin 750 mg tablet RxNorm: 274512 1 Tablet(s) PO QD 03/04/2017 Inactive ProAir HFA 90 mcg/actuation aerosol inhaler RxNorm: 583887 2 Puff(s) INH Q4H as needed 03/04/2017 07/04/2017 Inactive if insurance das s not cover, please switch to ventolin. Tamiflu 75 mg capsule RxNorm: 757440 1 Capsule(s) PO QD 03/04/2017 Inactive metformin 1,000 mg tablet RxNorm: 266959 1 Tablet(s) PO QD 02/16/20 17 05/15/2017 Inactive Lexapro 20 mg tablet RxNorm: 743022 1 Tablet(s) PO QD 01/17/201707/2017 Inactive cephalexin 500 mg capsule RxNorm: 584708 1 Capsule(s) PO TID 201612/08/2016 Inactive pantoprazole 40 mg tablet,delayed release RxNorm: 617858 1 Tabl et(s) PO QD 11/16/2016 03/15/2017 Inactive metformin 1,000 mg tablet RxNorm: 145118 TAKE 1 TABLET BY MOUTH EVERY DAY 10/10/2016 02/15/2017 Inactive Flonase Allergy Relief 50 mcg/actuation nasal spray,suspensi on RxNorm: 0116589 2 [place] NASAL QHS 09/06/2016 11/15/2016 Inactive Singulair 10 mg tablet RxNorm: 758569 1 Tablet(s) PO QHS 09/06/2016 0 11/15/2016 Inactive Singulair 10 mg tablet RxNorm: 584437 1 Tablet(s) PO QHS 08/12/2016 0 09/05/2016 Inactive ProAir HFA 90 mcg/actuation aerosol inhaler RxNorm: 173682 1 Puff(s) INH Q4H as needed 08/12/2016 08/15/2016 Inactive Medrol (Ab) 4 mg tablets in a dose pack RxNorm: 526644 Tablet(s) PO As Directed 07/29/2016 08/15/2016 Inactive Lexapro 20 mg tablet RxNorm: 221667 1 Tablet(s) PO QD 07/06/201612/30 Inactive doxycycline hyclate 100 mg capsule RxNorm: 5727939 1 Capsule(s) PO BID 06/24/2016 06/23/2016 Inactive doxycycline hyclate 100 mg capsule RxNorm: 6888353 1 Capsule(s) PO BID 06/24/2016 07/03/2016 Inactive ProAir HFA 90 mcg/actuation aerosol inhaler RxNorm: 367194 1 Puff(s) INH Q4H as needed 06/23/2016 08/11/2016 Inactive prednisone 20 mg tablet RxNorm: 248796 1 Tablet(s) PO BID 06/23/2016 06/27/2016 Inactive metformin 1,000 mg tablet RxNorm: 985544 1 Tablet(s) PO QD 12/18/19 16 06/14/2016 Inactive Lexapro 20 mg tablet RxNorm: 495054 1 Tablet(s) PO QD 12/18/2015 0510/2016 Inactive prednisone 20 mg tablet RxNorm: 943122 Take 3 tabs PO Q D x 3 days, then 2 tabs PO QD x 3 days, then 1 tab PO QD x 3 days 12/01/2015 12/10/2015 Inacti ve albuterol sulfate 2.5 mg/3 mL (0.083 %) solution for n ebulization RxNorm: 298261 3 Milliliter(s) INH Q4H as needed 12/01/2015 07/04/2017 Inactiv e Singulair 10 mg tablet RxNorm: 059197 1 Tablet(s) PO QHS No Start D ate 08/11/2016 Inactive Breo Ellipta 100 mcg-25 mcg/dose powder for inhalation RxNor m: 4840848 1 Puff(s) INH QD No Start Date 02/01/2017 Inactive Zyrtec 10 mg tablet RxNorm: 4181289 1 Tablet(s) PO QAM No Start Date 11/15/2016 Inactive Xanax 0.25 mg tablet RxNorm: 657962 1 Tablet(s) PO as needed No Sta rt Date 09/21/2017 Inactive metformin 1,000 mg tablet RxNorm: 083067 1 Tablet(s) PO QD No Start Date 12/17/2015 Inactive Singulair 10 mg tablet RxNorm: 427131 1 Tablet(s) PO QHS No Start D ate 11/15/2016 Inactive metformin 1,000 mg tablet RxNorm: 271317 1 Tablet(s) PO QD No Start Date 02/14/2017 Inactive metformin 1,000 mg tablet RxNorm: 189389 1 Tablet(s) PO BID No Star t Date 09/26/2017 Inactive Trulicity 0.75 mg/0.5 mL subcutaneous pen injector RxNorm: 1 275295 0.75 Milligram(s) SQ QW No Start Date 08/27/2018 Inactive Medrol (Ab) 4 mg tablets in a dose pack RxNorm: 081993 Tablet(s) PO As Directed No Start Date 07/28/2016 Inactive Lexapro 20 mg tablet RxNorm: 128909 1 Tablet(s) PO QD No Start Date 1 Inactive Lexapro 20 mg tablet RxNorm: 837847 1 Tablet(s) PO QD No Start Date 0 07/09/2018 Inactive Medication Administered No Medication Administered data Immunizations Vaccine Codes Date Status Tetanus, Diptheria, Pertussis CVX: 115 11/30/2016 Co mplete Pneumococcal CVX: 133 03/09/2016 Complete Results Observation Observation Code Item Item Code Result Date S ervice Location VIRAL HEPATITIS PROFILE #2 16961 Hep A IgM Non-Reactive 06/20/2018 Unknown VIRAL HEPATITIS PROFILE #2 86255 Hep B Core IgM Non-Reac tive 06/20/2018 Unknown VIRAL HEPATITIS PROFILE #2 21656 Hepatitis C Ab Non-Reac tive 06/20/2018 Unknown VIRAL HEPATITIS PROFILE #2 44878 Hep Bs Ag Non-Reactive 06/20/2018 Unknown MEAN GLUC 3991886 Calc Mean Gluc 194 mg/dL 06/19/2018 Unkn own COMPREHENSIVE METABOLIC 18196 AST 94 U/L 2018 Unknown COMPREHENSIVE METABOLIC 77496 ALT 160 U/L 2018 Unknown COMPREHENSIVE METABOLIC 75897 BUN 9 mg/dL 2018 Unknown COMPREHENSIVE METABOLIC 61116 ALBUMIN 4.6 g/dL 2018 Unknown COMPREHENSIVE METABOLIC 70269 CHLORIDE 101 mmol/L 06/19 Unknown COMPREHENSIVE METABOLIC 68514 Bili Total 0.9 mg/dL 06/19 Unknown COMPREHENSIVE METABOLIC 59736 ALK PHOS 64 U/L 2018 Unknown COMPREHENSIVE METABOLIC 65674 SODIUM 136 mmol/L 06/19 Unknown COMPREHENSIVE METABOLIC 76986 CREATININE 0.58 mg/dL 05/30 Unknown COMPREHENSIVE METABOLIC 79993 CALCIUM 10.3 mg/dL 06/19 Unknown COMPREHENSIVE METABOLIC 55888 POTASSIUM 3.7 mmol/L 06/19 Unknown COMPREHENSIVE METABOLIC 46940 Total Protein 7.1 g/dL Unknown COMPREHENSIVE METABOLIC 70259 Glucose 187 mg/dL 2018 Unknown COMPREHENSIVE METABOLIC 91106 Bicarbonate 26 mmol/L 05/30 Unknown COMPREHENSIVE METABOLIC 82109 AGAP 9 mmol/L 2018 Unknown GLYCOSYLATED HEMOGLOBIN TEST 87142 Hgb A1c 58492-2 8.4 % 0 06/19/2018 Unknown COMPLETE BLOOD COUNT 3840057 WBC 6.2 10e9/L 06/20/19 19 Unknown COMPLETE BLOOD COUNT 7094898 RBC 4.70 10e12/L 2018 Unknown COMPLETE BLOOD COUNT 5929640 HEMOGLOBIN 13.4 g/dL 06/20/19 19 Unknown COMPLETE BLOOD COUNT 9282370 HEMATOCRIT 39.9 % 06/20/19 19 Unknown COMPLETE BLOOD COUNT 8716666 MCV 84.9 fL 9 Unknown COMPLETE BLOOD COUNT 1725409 MCH 28.5 pg 9 Unknown COMPLETE BLOOD COUNT 3224616 MCHC 33.6 g/dL 9 Unknown COMPLETE BLOOD COUNT 6349996 PLATELET COUNT 252 10e9/L Unknown COMPLETE BLOOD COUNT 3385963 Mean Plt Volume 12.2 fL Unknown COMPLETE BLOOD COUNT 8175698 Neut Auto 53.9 % 9 Unknown COMPLETE BLOOD COUNT 4067638 Lymph Auto 35.2 % 06/20/19 19 Unknown COMPLETE BLOOD COUNT 6777197 [place] Auto 7.1 % 9 Unknown COMPLETE BLOOD COUNT 5753751 RDW 14.1 % 9 Unknown COMPLETE BLOOD COUNT 8182108 Eos Auto 3.2 % 9 Unknown COMPLETE BLOOD COUNT 3864635 Baso Auto 0.6 % 9 Unknown COMPLETE BLOOD COUNT 3650260 Neutrophil Abs 3.34 10e9/L Unknown COMPLETE BLOOD COUNT 7054985 Lymphocyte Abs 2.18 10e9/L Unknown COMPLETE BLOOD COUNT 4384812 Monocyte Abs 0.44 10e9/L 05/30 Unknown COMPLETE BLOOD COUNT 7465090 Eosinophil Abs 0.20 10e9/L Unknown COMPLETE BLOOD COUNT 6359607 RDW-SD 42.7 fL 9 Unknown COMPLETE BLOOD COUNT 0673919 Basophil Abs 0.04 10e9/L 05/30 Unknown THYROID STIMULATING HORMONE 45323 TSH 1.976 uIU/mL 06/19/2018 Unknown GFR CALC 8397240 GFR Non Afr Amr >60 mL/min 06/19/2018 Un known GFR CALC 0868162 GFR Afr Amr >60 mL/min 06/19/2018 Unknow n SURESWAB(R), BACTERIAL VAGINOSIS/VAGINITIS 11298 BV CATEGORY: TNP 09/27/2017 [facility] [address] [place] [address] SURESWAB(R), BACTERIAL VAGINOSIS/VAGINITIS 47444 LACTOBACILLUS S PECIES DNR 09/27/2017 [facility] [address] [place] [address] SURESWAB(R), BACTERIAL VAGINOSIS/VAGINITIS 18041 ATOPOBIUM VAGIN AE DNR 09/27/2017 [facility] [address] [place] [address] SURESWAB(R), BACTERIAL VAGINOSIS/VAGINITIS 56825 MEGASPHAERA SPE CIES DNR 09/27/2017 [facility] [address] [place] [address] SURESWAB(R), BACTERIAL VAGINOSIS/VAGINITIS 97689 GARDNERELLA VAG INALIS DNR 09/27/2017 [facility] [address] [place] [address] SURESWAB(R), BACTERIAL VAGINOSIS/VAGINITIS 87879 SURESWAB(R) TRICHOMONAS VAGINALIS RNA, QL TMA TNP 09/27/2017 [facility] [address] [place] [address] SURESWAB(R), BACTERIAL VAGINOSIS/VAGINITIS 62261 C. ALBICANS, DN A TNP 09/27/2017 [facility] [id number] [place] [address] SURESWAB(R), BACTERIAL VAGINOSIS/VAGINITIS 76030 C. GLABRATA, DN A DNR 09/27/2017 [facility] [address] [place], [place] [address] [address] SURESWAB(R), BACTERIAL VAGINOSIS/VAGINITIS 29346 C. TROPICALIS, DNA DNR 09/27/2017 [facility] [address] [place] [address] SURESWAB(R), BACTERIAL VAGINOSIS/VAGINITIS 35849 C. PARAPSILOSIS , DNA DNR 09/27/2017 [facility] [address] THINPREP TIS AND HPV mRNA E6/E7 83930 REPORT STATUS: DNR 09/27/2017 [facility] [address] THINPREP TIS AND HPV mRNA E6/E7 60933 CLINICAL INFORMATION: 09/27/2017 [facility] [address] [place] [address] THINPREP TIS AND HPV mRNA E6/E7 80692 LMP: 201709/27/2017 [facility] [place] [address] THINPREP TIS AND HPV mRNA E6/E7 77148 PREV. PAP: 09/27/2017 [facility] [place] [address] THINPREP TIS AND HPV mRNA E6/E7 15927 PREV. BX: 09/27/2017 [facility] [place] [address] THINPREP TIS AND HPV mRNA E6/E7 09946 SOURCE: Cerv ix 09/27/2017 [facility] [place] [address] THINPREP TIS AND HPV mRNA E6/E7 17750 STATEMENT OF ADEQUACY: 09/27/2017 [facility] [place] [address] THINPREP TIS AND HPV mRNA E6/E7 38931 GENERAL CATEGORIZATION: DNR 09/27/2017 [facility] [place] [address] THINPREP TIS AND HPV mRNA E6/E7 92313 INTERPRETATION/RESULT: 09/27/2017 [facility] [place] [address] THINPREP TIS AND HPV mRNA E6/E7 34231 INFECTION: DNR 09/27/2017 [facility] [place] [address] THINPREP TIS AND HPV mRNA E6/E7 41896 COMMENT: 09/27/2017 [facility] [place] [address] THINPREP TIS AND HPV mRNA E6/E7 56793 TYPE DISK QUALITY CONTROL SUPERVISOR: 09/27/2017 [facility] [place] [address] THINPREP TIS AND HPV mRNA E6/E7 13322 REVIEW TYPE DISK QUALITY CONTROL SUPERVISOR: DNR 09/27/2017 [facility] [place] [address] THINPREP TIS AND HPV mRNA E6/E7 74181 PATHOLOGIST: KHLOE Srivastava 09/27/2017 [facility] [place] [address] THINPREP TIS AND HPV mRNA E6/E7 08061 COMMENT 09/27/2017 [facility] [address] [address] THINPREP TIS AND HPV mRNA E6/E7 56283 HPV mRNA E6/E7 Not Detected 09/27/[address] [place] [address] CULTURE, GENITAL 16511 CULTURE, GENITAL SEE NOTE [facility] [address] [place] [address] CULTURE, THROAT 43094 CULTURE, THROAT SEE NOTE 07/30 [facility] [address] [address] Procedures Procedure Codes Date DRAIN/INJECT JOINT/BURSA CPT-4: 19119 01/23/2019 ROUTINE VENIPUNCTURE CPT-4: 53520 06/19/2018 COMPLETE CBC W/AUTO DIFF WBC CPT-4: 26988 06/19/2018 COMPREHEN METABOLIC PANEL CPT-4: 01499 06/19/2018 A1C HPLC CPT-4: 08482 06/19/2018 ASSAY THYROID STIM HORMONE CPT-4: 08180 06/19/2018 URINALYSIS NONAUTO W/O SCOPE CPT-4: 44300 06/19/2018 ACUTE HEPATITIS PANEL CPT-4: 37570 06/19/2018 INFLUENZA ASSAY W/OPTIC CPT-4: 33619 04/26/2018 STREP A ASSAY W/OPTIC CPT-4: 99427 04/25/2018 THROAT CULTURE CPT-4: 97231 04/25/2018 CEFTRIAXONE SODIUM INJECTION CPT-4: J0696 11/10/2017 DEXAMETHASONE SODIUM PHOS CPT-4: J1100 11/10/2017 THER/PROPH/DIAG INJ SC/IM CPT-4: 97864 11/10/2017 TRIAMCINOLONE ACET INJ NOS CPT-4: J3301 11/10/2017 OCCULT BLOOD FECES CPT-4: 22810 09/22/2017 SURESWAB(R), BACTERIAL VAGINOSIS/VAGINITIS CPT-4: 04726 09/22/2017 CULTURE, GENITAL CPT-4: 69825 09/22/2017 TDAP VACCINE 7 YRS/> IM CPT-4: 83985 11/30/2016 IMMUNIZATION ADMIN CPT-4: 33615 11/30/2016 REMOVAL OF FOOT FOREIGN BODY CPT-4: 32371 11/29/2016 REMOVAL OF SKIN TAGS <W/15 CPT-4: 48174 10/05/2016 CULTURE, THROAT CPT-4: 35396 08/16/2016 PNEUMOCOCCAL VACC 13 AYSHA IM CPT-4: 21773 03/09/2016 IMMUNIZATION ADMIN CPT-4: 11315 03/09/2016 THER/PROPH/DIAG INJ SC/IM CPT-4: 13307 12/11/2015 TRIAMCINOLONE ACET INJ NOS CPT-4: J3301 [...] 1: 126/84 Code: 8480-6 BMI: 39.9 Code: 79533-7 Heart Rate 1: 80 bpm Height: 5'2" [...] 1: 126/82 Code: 8480-6 BMI: 40.6 Code: 73499-7 Heart Rate 1: 72 bpm Height: 5'2" [...] 1: 124/68 Code: 8480-6 BMI: 41.7 Code: 01126-2 Heart Rate 1: 66 bpm Height: 5'2" Respiratory Rate: 20 bpm SpO2: 98% Tempera ture: 36.2 (C) / 97.2 (F) Weight: 228 lbs 09/22/2017 Blood Pressure 1: 142/80 Code: 8480-6 BMI: 41.3 Code: 37521-5 Heart Rate 1: 60 bpm Height: 5'2" Respiratory Rate: 20 bpm SpO2: 98% Tempera ture: 36.3 (C) / 97.3 (F) Weight: 226 lbs 07/05/2017 Blood Pressure 1: 129/82 Code: 8480-6 BMI: 42.3 Code: 00756-7 Heart Rate 1: 60 bpm Height: 5'2" SpO2: 97% Temperature: 36.4 (C) / 97.6 (F) Weight: 231 lbs 03/04/2017 Blood Pressure 1: 142/80 Code: 8480-6 BMI: 42.4 Code: 78185-6 Heart Rate 1: 74 bpm Height: 5'2" Respiratory Rate: 24 bpm SpO2: 97% Tempera ture: 36.4 (C) / 97.6 (F) Weight: 232 lbs 02/02/2017 Blood Pressure 1: 146/82 Code: 8480-6 BMI: 42.4 Code: 07585-9 Heart Rate 1: 84 bpm Height: 5'2" Respiratory Rate: 20 bpm SpO2: 98% Tempera ture: 36.6 (C) / 97.9 (F) Weight: 232 lbs 11/29/2016 Blood Pressure 1: 126/78 Code: 8480-6 Heart Rate 1: 76 bpm Height: 5'2" Respiratory Rate: 20 bpm SpO2: 96% Temperature: 36 .9 (C) / 98.4 (F) 11/16/2016 Blood Pressure 1: 136/94 Code: 8480-6 BMI: 42.6 Code: 89705-6 Heart Rate 1: 68 bpm Height: 5'2" Respiratory Rate: 20 bpm SpO2: 96% Tempera ture: 36.9 (C) / 98.4 (F) Weight: 233 lbs 10/05/2016 Blood Pressure 1: 112 Code: 8480-6 BMI: 41.5 Code: 88995-2 Heart Rate 1: 80 bpm Height: 5'2" Respiratory Rate: 20 bpm SpO2: 97% Tempera ture: 36.8 (C) / 98.2 (F) Weight: 227 lbs 09/06/2016 Blood Pressure 1: 126/82 Code: 8480-6 BMI: 42.4 Code: 50880-0 Heart Rate 1: 64 bpm Height: 5'2" Respiratory Rate: 20 bpm SpO2: 98% Tempera ture: 37.0 (C) / 98.6 (F) Weight: 232 lbs 08/16/2016 Blood Pressure 1: 136/82 Code: 8480-6 BMI: 42.1 Code: 29929-8 Heart Rate 1: 72 bpm Height: 5'2" [...] 1: 144/80 Code: 8480-6 BMI: 40.4 Code: 43253-1 Heart Rate 1: 92 bpm Height: 5'2" Respiratory Rate: 20 bpm SpO2: 95% Tempera ture: 36.8 (C) / 98.2 (F) Weight: 221 lbs 12/08/2015 Blood Pressure 1: 124/78 Code: 8480-6 Heart Rate 1: 108 bpm Height: 5'2" Respiratory Rate: 22 bpm SpO2: 95% Temperature: 36.2 (C) / 97.2 (F) Weight: 12/01/2015 Blood Pressure 1: 124/78 Code: 8480-6 BMI: 40.4 Code: 29920-9 Heart Rate 1: 92 bpm Height: 5'2" [...] cough 11/10/2017 patient was seen at [facility] and given Levaquin and 5 day [...] care Encounters Encounter Performer Location Codes Date (70403) OFFICE/OUTPATIENT VISIT EST Diagnosis: Acute upper respiratory infection, unspecified[ICD10: J06.9] Diagnosis: Generalized anxiety disorder[ICD10: F41.1] Diagnosis: Type 2 diabetes mellitus with hyperglycemia[ICD10: E11.65] Diagnosis: Encounter for therapeutic drug level monitoring[ICD10: Z51.81] Lisbeth Kruger [facility] CPT-4: 28983 10/31/2018 ([id number]) OFFICE/OUTPATIENT VISIT EST Diagnosis: Type 2 diabetes mellitus with hyperglycemia[ICD10: E11.65] Diagnosis: Essential (primary) hypertension[ICD10: I10] Nirmala GIMENEZ [facility] CPT-4: 19200 08/08/2018 ([id number]) OFFICE/OUTPATIENT VISIT EST Diagnosis: Essential (primary) hypertension[ICD10: I10] Diagnosis: Type 2 diabetes mellitus with hyperglycemia[ICD10: E11.65] Diagnosis: Other fatigue[ICD10: R53.83] Nirmala GIMENEZ [facility] CPT-4: 10830 07/06/2018 ([id number]) OFFICE/OUTPATIENT VISIT EST Diagnosis: Dizziness and giddiness[ICD10: R42] Diagnosis: Elevated blood-pressure reading, without diagnosis of hypertension[ICD10: R03.0] Shell Murguia Sudi[facility]ha CPT- 4: 03300 06/19/2018 ([id number]) OFFICE/OUTPATIENT VISIT EST Diagnosis: Essential (primary) hypertension[ICD10: I10] Diagnosis: Dizziness and giddiness[ICD10: R42] Shell Murguia Sudiksha CPT-4: 72542 06/13/2018 ([id number]) NURSE/OUTPATIENT VISIT EST Diagnosis: Influenza due to identified novel influenza A virus with other manifestations[ICD10: J09.X9] Nirmala JARAMILLO [facility] CPT-4: 82255 04/26/2018 OFFICE/OUTPATIENT VISIT EST Diagnosis: Pain in throat[ICD10: R07.0] Diagnosis: Acute pharyngitis, unspecified[ICD10: J02.9] Shell JARAMILLO [facility] CPT-4: 26138 04/25/2018 ([id number]) OFFICE/OUTPATIENT VISIT EST Diagnosis: Acute sinusitis, unspecified[ICD10: J01.90] Diagnosis: Paresthesia of skin[ICD10: R20.2] Nirmala ORNELASLIN Joselito JARAMILLO [facility] CPT-4: 95026 04/14/2018 ([id number]) OFFICE/OUTPATIENT VISIT EST Diagnosis: Pain in right leg[ICD10: M79.604] Diagnosis: Sciatica, right side[ICD10: M54.31] Nirmala Ella JOSE LUIS RUIZ [facility] CPT-4: 02044 01/31/2018 ([id number]) OFFICE/OUTPATIENT VISIT EST Diagnosis: Pain in right leg[ICD10: M79.604] Lisbeth ORNELASLIN Joselito JARAMILLO [facility] CPT-4: 46248 01/23/2018 ([id number]) OFFICE/OUTPATIENT VISIT EST Diagnosis: Acute bronchitis, unspecified[ICD10: J20.9] Lisbeth ORNELASLINE Shantal JARAMILLO [facility] CPT-4: 52743 11/10/2017 ([id number]) PREV VISIT EST AGE 40-64 Diagnosis: Encounter [...] Nonalcoholic steatohepatitis (MOORE)[ICD10: K75.81] Lisbeth JARAMILLO DO [facility] CPT-4: 24818 09/22/2017 ([id number]) OFFICE/OUTPATIENT VISIT EST Diagnosis: Acute sinusitis, unspecified[ICD10: J01.90] Lisbeth JARAMILLO DO [facility] CPT-4: 33693 07/05/2017 OFFICE/OUTPATIENT VISIT EST Diagnosis: Pneumonia, unspecified organism[ICD10: J18.9] Lisbeth JARAMILLO DO [facility] CPT-4: 97415 03/04/2017 ([id number]) OFFICE/OUTPATIENT VISIT EST Diagnosis: Polycystic ovarian syndrome[ICD10: E28.2] Diagnosis: Abnormal levels of other serum enzymes[ICD10: R74.8] Diagnosis: Nonalcoholic steatohepatitis (MOORE)[ICD10: K75.81] Diagnosis: Impaired glucose tolerance (oral)[ICD10: R73.02] Nirmala JARAMILLO [facility] CPT-4: 82677 02/02/2017 ([id number]) OFFICE/OUTPATIENT VISIT EST Diagnosis: VACCINE FOR TDAP[ICD10: Z23] Nirmala JARAMILLO DO [employer] CPT-4: 57971 11/30/2016 ([id number]) OFFICE/OUTPATIENT VISIT EST Diagnosis: Cough[ICD10: R05] Diagnosis: Abnormal levels of other serum enzymes[ICD10: R74.8] Diagnosis: Family history of other endocrine, nutritional and metabolic diseases[ICD10: Z83.49] Nirmala JARAMILLO DO [employer] CPT-4: 79409 11/16/2016 ([id number]) OFFICE/OUTPATIENT VISIT EST Diagnosis: Cough[ICD10: R05] Diagnosis: Other seasonal allergic rhinitis[ICD10: J30.2] Diagnosis: Abnormal levels of other serum enzymes[ICD10: R74.8] Nirmala JARAMILLO DO Copyright Agent CPT-4: 29231 09/06/2016 ([id number]) OFFICE/OUTPATIENT VISIT EST Diagnosis: Cough[ICD10: R05] Diagnosis: Polycystic ovarian syndrome[ICD10: E28.2] Nirmala JARAMILLO [facility] CPT-4: 59750 08/16/2016 ([id number]) OFFICE/OUTPATIENT VISIT EST Diagnosis: Acute bronchitis, unspecified[ICD10: J20.9] Diagnosis: Acute upper respiratory infection, unspecified[ICD10: J06.9] Ananya ORNELASLINE JeremyZee ELLA [facility] CPT-4: 50887 06/23/2016 ([id number]) OFFICE/OUTPATIENT VISIT EST Diagnosis: PNEUMOCOCCAL VACCINE[ICD10: Z23] Nirmala JARAMILLO [facility] CPT-4: 01979 03/09/2016 ([id number]) OFFICE/OUTPATIENT VISIT EST Diagnosis: Pneumonia, unspecified organism[ICD10: J18.9] Diagnosis: Polycystic ovarian syndrome[ICD10: E28.2] Diagnosis: Generalized anxiety disorder[ICD10: F41.1] Nirmala LunaZee ELLA [facility] CPT-4: 85261 12/18/2015 ([id number]) OFFICE/OUTPATIENT VISIT EST Diagnosis: Cough[ICD10: R05] Diagnosis: Acute bronchospasm[ICD10: J98.01] Nirmala Yee JeremyZee ELLA [facility] CPT-4: 13115 12/11/2015 ([id number]) OFFICE/OUTPATIENT VISIT EST Diagnosis: Pneumonia, unspecified organism[ICD10: J18.9] Ananya ORNELASLINE JeremyZee ELL[facility] CPT-4: 02094 12/08/2015 OFFICE/OUTPATIENT VISIT NEW Diagnosis: Pneumonia, unspecified organism[ICD10: J18.9] Ananya ORNELASLINE JeremyZee ELLA [facility] CPT-4: 16543 12/01/2015 Plan of Care Planned Activity Notes Codes Status Date Visit Diagnosis Plan: Tibial collateral bursitis of ri ght knee Discussion: Bursa injection as above PELON wrap/rest Notify in 1-2 weeks how knee is doing ICD-9 : 726.62 ICD-10 : M76.41 01/23/2019 App[facility]ment[phone] [facility] 01/23/2019 Care Plan: Referral Order SNOMED-CT : 30 6671603 Pending 01/23/2019 Visit Diagnosis Plan: Type 2 [...] ICD-10 : F41.1 10/31/2018 Appointment: Lisbeth Kruger [address] [place], [place] [id number] ACUTE ILLNESS 10/31/2018 Patient Education: Trulicity- OptimizeRX Coupon [id number] https://www.Etreasurebox.[employer]/samplemd/resources/getResource/61/n414x2j2-i829-1n36-sz Completed 10/31/2018 Patient Education: Xanax- OptimizeRX Coupon [id number] https://www.[employer]treasure[employer]/samplemd/resources/getResource/61/xa86561e-4610-99u7-hf b2-411y519x0682.pdf Completed 10/31/2018 Patient Education: prednisone- OptimizeRX Coupon 14699 [phone] https://www.[employer]ably/samplemd/resources/getResource/61/440rn932-4500-96x8-67 Completed 10/31/2018 Patient Education: ProAir HFA- OptimizeRX Coupon 07339 600 https://www.Literably/samplemd/resources/getResource/61/2oj12402-92u7-1429-78 Completed 10/31/2018 Visit Diagnosis Plan: Type 2 diabetes mellitus with hy perglycemia Discussion: Lab discussed Accuchecks daily Continue current meds Check CMP and HbA1C end of September then fwup ICD-9 : 250.02 ICD-10 : E11.65 08/08/2018 Visit Diagnosis Plan: Essential (primary) hypertension Discussion: Stable ICD-9 : 401.9 ICD-10 : I10 08/08/2018 Appointment: Nirmala Jaramillo WPtel: [address] [place], [place] [phone] [place] FOLLOW UP 08/08/2018 Visit Diagnosis Plan: [...] : R53.83 07/06/2018 Appointment: Nirmala Jaramillo WPtel: [address] [place], [place] [phone] [place] FOLLOW UP 07/06/2018 Appointment: Nirmala Jaramillo WPtel: [address] [place], [place] [phone] [place] Consult 06/22/2018 Patient Education: lisinopril- OptimizeRX Marilu [id number] https://www.Etreasurebox.[employer]/samplemd/resources/getResource/61/180k97r5-aln4-7839-fp Completed 06/22/2018 Visit Diagnosis Plan: Essential (primary) hypertension Discussion: Increased lisinopril from 5 QD to 20 mg QD. Labs today- CBC, CMP, TSH, A1C. UA today- trace protein. hematuria (patient on period). ICD-9 : 401.9 ICD-10 : I10 06/19/2018 Visit Diagnosis Plan: Dizziness and giddiness Discussi on: Recommend scheduling appt with furnace mechanic. ICD-9 : 780.4 ICD-10 : R42 06/19/2018 Appointment: Shell Vega [address] [place], [place] [phone] FOLLOW UP 06/19/2018 Visit Diagnosis Plan: Essential (primary) hypertension Discussion: Lisinopril 5 mg PO QD- return for BP check in 2 weeks. ICD-9 : 401.9 ICD-10 : I10 06/13/2018 Visit Diagnosis Plan: Dizziness and giddiness Discussi on: Most likely related to HTN. Advised to notify clinic if dizziness worsens or does not subside. Return to clinic LEYT or go to ED with severe headache, vision changes, dyspnea, chest pain. Patient states understanding of all instruction. ICD-9 : 780.4 ICD-10 : R42 06/13/2018 Appointment: Shell Vega [address] [place], [place] [phone] ACUTE ILLNESS 06/13/2018 Appointment: Nirmala Jaramillo WPtel: [phone] [id number] FLU SWAB 04/26/2018 Visit Diagnosis Plan: Pain in throat Discussion: Rapid Strep A- negative Throat culture- pending. Will call patient with results. Prednisone 10 mg TID x 5 days. Supportive care- fluids, tylenol for pain, humidified air. ICD-9 : 784.1 ICD-10 : R07.0 04/25/2018 Appointment: Shell Vega [address] [place], [place] [phone] ACUTE ILLNESS 04/25/2018 Visit Plan: Saline nasal [...] : J01.90 04/14/2018 Appointment: Nirmala Jaramillo WPtel: [address] [place] [address] ACUTE ILLNESS 04/14/2018 Patient Education: prednisone- OptimizeRX Coupon [id number] https://www.Literably/Etreasurebox/resources/getResource/61/0lsq05ie-e5u7-54f7-w7 Completed 04/14/2018 Visit Diagnosis Plan: Pain in right leg Discussion: Ch dickson right tib/fib x-ray and start celebrex May need PT ICD-9 : 729.5 ICD-10 : M79.604 01/31/2018 Visit Diagnosis Plan: Sciatica, right side Discussion: Check L/S spine x-ray ICD-9 : 724.3 ICD-10 : M54.31 01/31/2018 Appointment: Nirmala Jaramillo WPtel: [address] [place] [address] FOLLOW UP 01/31/2018 Care Plan: X-RAY EXAM L-S SPINE 2/3 VWS LOINC : 44863-5 Pending 01/31/2018 Care Plan: X-RAY EXAM OF LOWER LEG LOINC : 19757-6 Pending 01/31/2018 Visit Diagnosis Plan: Pain in [...] : M79.604 01/23/2018 Appointment: Lisbeth Kruger [address] ACUTE ILLNESS 01/23/2018 Visit Diagnosis Plan: Acute [...] ICD-10 : J20.9 11/10/2017 Appointment: Lisbeth Kruger [address] [place], [place] [id number] ACUTE ILLNESS 11/10/2017 Patient Education: Patient Medication Summary Completed 11/10/2017 Care Plan: CHEST X-RAY 2VW FRONTAL&LATL LOINC : 34793-8 Pending 11/10/2017 Patient Education: Patient Medication Summary Completed 09/26/2017 Care Plan: A1C HPLC LOINC : 38965-0 Pending 09/26/2017 Visit Diagnosis Plan: Encounter for [facility] adult medical examination without abnormal findings Discussion: fasting blood work ordered t o be obtained at [facility] in the next few days [...] mammogram ordered to be comp leted at [facility]. breast exam performed in office. ICD-9 : V76.11 ICD-10 : Z12.31 09/22/2017 Appointment: Lisbeth Kruger [address] [facility] Annual Well Visit 09/22/2017 Patient Education: Patient [...] : J01.90 07/05/2017 Appointment: Lisbeth Kruger [address] [facility] ACUTE ILLNESS 07/05/2017 Patient Education: [...] : J18.9 03/04/2017 Appointment: Lisbeth Kruger [address] [facility] FOLLOW UP 03/04/2017 Patient Education: [...] R74.8 02/02/2017 Appointment: Nirmala Jaramillo WPtel: [phone] [facility] FOLLOW UP 02/02/2017 Patient Education: Patient Medication Summary Completed 02/02/2017 Care Plan: Referral Order SNOMED-CT : 30 [id number] Pending 02/02/2017 Patient Education: Patient Medication Summary Completed 01/28/2017 Care Plan: ACUTE HEPATITIS PANEL LOINC : 08235-7 Pending 01/28/2017 Patient Education: Patient Medication Summary Completed 01/26/2017 Care Plan: COMPREHEN METABOLIC PANEL [place]Y NC : 39528-1 Pending 01/26/2017 Care Plan: A1C HPLC LOINC : 76393-4 Pending 01/26/2017 Appointment: Nirmala Jaramillotel: [address] [place], [place] [phone] [place] INJECTION 11/30/2016 Referral: Sav Goff [facility] [address] [id number] Referral Initiated 11/30/2016 Patient Education: Patient Medication [...] : S90.852A 11/29/2016 Appointment: Nirmala Jaramillo WPtel: [address] [place], [place] [phone] ACUTE ILLNESS 11/29/2016 Patient [...] : Z83.49 11/16/2016 Appointment: Nirmala Jaramillo WPtel: [address] [place], [place] [phone] [place] FOLLOW UP 11/16/2016 Patient Education: Patient Medication Summary Completed 11/16/2016 Care Plan: Referral Order SNOMED-CT : 30 5025376 Pending 11/16/2016 Appointment: Nirmala Jaramillo WPtel: [address] [place], [place] [id number] [place] RESCHEDULED 11/08/2016 Visit Diagnosis Plan: Other hypertrophic disorders of the skin Discussion: Irritated skin tags excised at base and then bases cauterized ICD-9 : 701.9 ICD-10 : L91.8 10/05/2016 Appointment: Nirmala Jaramillo WPtel: [address] [place], [place] [phone] [id number] confirmed-sp OFFICE SURGERY 10/05/2016 Patient Education: Patient Medication Summary Completed 10/05/2016 Appointment: Nirmala Jaramillo WPtel: [address] [place], [place] [id number] [place] Per doctor~ 09/09 canceled due to [...] : R74.8 09/06/2016 Appointment: Nirmala Jaramillo WPtel: [address] [place], [place] [id number] [place] 7/6 lm~sl FOLLOW UP 09/06/2016 Patient Education: Patient Medication Summary Completed 09/06/2016 Patient Education: Patient Medication Summary Completed 08/18/2016 Care Plan: ACUTE HEPATITIS PANEL LOINC : 75564-8 Pending 08/18/2016 Care Plan: TICKBORNE DISEASE PANEL [...] : R05 08/16/2016 Appointment: Nirmala Jaramillo WPtel: [address] [place], [place] [phone] 08/13 confirmed `sl WORK IN 08/16/2016 Patient Education: Patient Medication Summary Completed 08/16/2016 Care Plan: MAMMOGRAM SCREENING Grandmother Juliane Sahu in late LOINC : 49812-3 Pending 08/16/2016 Patient Education: Patient Medication Summary Completed 07/27/2016 Visit Diagnosis Plan: Acute bronchitis, unspecified Di scussion: Rxs as above Borrow neb machine until home with hers if needed OTC meds reviewed Watch BSs closely Follow up if not improving ICD-9 : 466.0 ICD-10 : J20.9 06/23/2016 Appointment: Ananya Lopez [address] [place] [address] ACUTE ILLNESS 06/23/2016 Patient Education: Patient Medication Summary Completed 06/23/2016 Appointment: Nirmala Jaramillo WPtel: [address] [place], [place] [phone] [place] INJECTION 03/09/2016 Patient Education: Patient Medication Summary Completed 03/09/2016 Appointment: Nirmala Jaramillo WPtel: [address] [place], [place] [phone] [place] INJECTION 02/16/2016 Visit Plan: Decrease Breo to 100/25mcg 1 p BID for another week Flu shot with Prevnar 13 next week if covered Refill metformin 12/18/2015 Appointment: Nirmala Jaramillo WPtel: [address] [place], [place] [phone] 12/16 confirmed`sl FOLLOW UP 12/18/2015 Patient Education: [...] Recheck 1week 12/11/2015 Appointment: Nirmala Jaramillo WPtel: [address] [place] [address] ACUTE ILLNESS 12/11/2015 Patient Education: Patient Medication Summary Completed 12/11/2015 Visit Plan: Patient sounds and appears i mproved Continue mucinex, vit C, breathing treatments, humidifier, vicks, etc CXR on am and will call with report before the weekend Monitor for any return of concerning symptoms - fevers, chills, worsening cough, etc 12/08/2015 Appointment: Ananya Lopez [address] [place] [address] 12/04 Lm~sl....confirmed-sp FOLLOW UP 11/28 Patient Education: Patient Medication Summary Completed 12/08/2015 Visit Plan: Finish levaquin ordered by [employer] Add above meds has nebulizer machine she [...] continuing to improve 12/01/2015 Appointment: Ananya Lopez [address] [place] [address] 11/30 lm ~sl NEW PATIENT 12/01/2015 Patient Education: Patient Medication Summary Completed 12/01/2015 Referral: Dhruv Montalvo WPtel: [phone] [facility] [place] [address] [place] Referral Appointment Requested Referral: Chan Chavez WPtel: [address] [facility] [address] [id number] [place] Referral Completed Referral: Dhruv Lubin WPtel: [facility] [address] [place] [address] [place] Referral Initiated Instructions Comment . Saline [...] cough, etc . Finish levaquin ordered by [facility] Add above meds has nebulizer machine she [...]
--- OUTSIDE RECORDS SUMMARY | 2019-05-18 13:20 | XMS REPORT | CCD ---
Author Veronica Robles Organization [facility] Address [address] [place] [address] Phone Unavailable Care Team Providers Care Public Health Sanitarian Technician Name Role Phone Nirmala Jaramillo D.O., PP Unavailable CCM Unavailable Summary Purpose Interface Exchange Insurance Providers Payer name Policy type / Coverage type Covered libertarian ID Effective Begin Date Effective End Date [employer] Commercial Insurance [id number] Unknown Family History Family History data not found Social History Social History Element Codes Description Effective Dates Marital status Unknown M arried 12/01/2015 Number of children Unknown 3 12/01/2015 Employment Unknown Curre 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 employed 12/01/[address]: 382657930 Never smoker 12/01/[address]: 713243907 Never drinks alcohol 12/01/2015 Allergies, Adverse Reactions, Alerts Substance Reaction Codes Entered Date Inactivated Date Status * NO KNOWN FOOD JEREL RGIES Unknown 12/01/2015 No Inactive Date Active * NO KNOWN ENVIRONME NTAL ALLERGIES Unknown 12/01/2015 No Inactive Date Active _ reaction, Unknown 12/01/2015 No In active Date Active Past Medical History Illness Codes Condition Status Onset Date Resolved Date Acute upper respirat ory infection, unspecified ICD-9: 465.9 ICD-10: J06.9 Active 06/23/2016 Unknown Encounter for therap eutic drug level monitoring ICD-9: V58.83 ICD-10: Z51.81 Active 10/31/2018 Unknown Generalized anxiety disorder ICD-9: 308.0 ICD-10: F41.1 Active 12/17/2015 Unknown Type 2 diabetes kevin itus with hyperglycemia ICD-9: 250.02 ICD-10: E11.65 Active 07/06/2018 Unknown Essential (primary) hypertension ICD-9: 401.9 ICD-10: I10 Active 06/13/2018 Unknown Other fatigue ICD-9: 780.79 ICD-10: R53.83 Active 07/06/2018 Unknown Dizziness and giddiness ICD-9: 780.4 ICD-10: R42 Active 06/13/2018 Unknown Elevated blood-press ure reading, without diagnosis of hypertension ICD-9: 796.2 ICD-10: R03.0 Active 06/19/2018 Unknown Hypertension Unknown Active 06/13/2018 Unknow n Influenza due to hasmukh ntified novel influenza A virus with other manifestations ICD-9: 488.09 ICD-10: J09.X9 Active 04/26/2018 Unknown Acute pharyngitis, u nspecified ICD-9: 462 ICD-10: J02.9 Active 04/25/2018 Unknown Pain in throat ICD-9: 784.1 ICD-10: R07.0 Active 04/25/2018 Unknown Acute sinusitis, uns pecified ICD-9: 461.9 ICD-10: J01.90 Active 07/05/2017 Unknown Paresthesia of skin ICD- 9: 782.0 ICD-10: R20.2 Active 04/14/2018 Unknown Pain in right leg ICD-9: 729.5 ICD-10: M79.604 Active 01/23/2018 Unknown Sciatica, right side ICD-9: 724.3 ICD-10: M54.31 Active 01/31/2018 Unknown Acute bronchitis, un specified ICD-9: 466.0 ICD-10: J20.9 Active 06/23/2016 Unknown Hyperglycemia, unspe cified ICD-9: 790.29 ICD-10: R73.9 Active 01/26/2017 Unknown Abnormal levels of o ther serum enzymes ICD-9: 790.5 ICD-10: R74.8 Active 08/18/2016 Unknown Encounter for genera l adult medical examination without abnormal findings ICD-9: V70.9 ICD-10: Z00.00 Active 09/22/2017 Unknown Encounter for gyneco logical examination (general) (routine) with abnormal findings ICD-9: V72.31 ICD-10: Z01.411 Active 09/22/2017 Unknown Encounter for screen ing for malignant neoplasm of colon ICD-9: V76.51 ICD-10: Z12.11 Active 09/22/2017 Unknown Encounter for screen ing mammogram for malignant neoplasm of breast ICD-9: V76.11 ICD-10: Z12.31 Active 09/22/2017 Unknown Impaired glucose anne erance (oral) ICD-9: 790.22 ICD-10: R73.02 Active 02/02/2017 Unknown Nonalcoholic steatoh epatitis (MOORE) ICD-9: 571.8 ICD-10: K75.81 Active 02/02/2017 Unknown Polycystic ovarian s yndrome ICD-9: 256.4 ICD-10: E28.2 Active 12/17/2015 Unknown Pneumonia, unspecifi ed organism ICD-9: 486 ICD-10: J18.9 Active 12/17/2015 Unknown VACCINE FOR TDAP ICD-9: V06.1 ICD-10: Z23 Active 11/30/2016 Unknown Superficial foreign body, left foot, initial encounter ICD-9: 917.6 ICD-10: S90.852A Active 11/29/2016 Unknown Cough ICD-9: 786.2 ICD-10: R05 Active 12/10/2015 Unknown Family history of ot her endocrine, nutritional and metabolic diseases ICD-9: V18.19 ICD-10: Z83.49 Active 11/16/2016 Unknown Other hypertrophic d isorders of the skin ICD-9: 701.9 ICD-10: L91.8 Active 10/05/2016 Unknown Other seasonal aller gic rhinitis ICD-9: 477.9 ICD-10: J30.2 Active 09/06/2016 Unknown PNEUMOCOCCAL VACCINE ICD-9: V03.82 ICD-10: Z23 Active 03/08/2016 Unknown Acute bronchospasm ICD- 9: 519.11 ICD-10: J98.01 Active 12/10/2015 Unknown Problems Condition Codes Effectiv e Dates Condition Status Acute upper respirat ory infection, unspecified ICD-9: 465.9 ICD-10: J06.9 06/23/2016 Active Encounter for therap eutic drug level monitoring ICD-9: V58.83 ICD-10: Z51.81 10/31/2018 Active Generalized anxiety disorder ICD-9: 308.0 ICD-10: F41.1 12/17/2015 Active Type 2 diabetes kevin itus with hyperglycemia ICD-9: 250.02 ICD-10: E11.65 07/06/2018 Active Essential (primary) hypertension ICD-9: 401.9 ICD-10: I10 06/13/2018 Active Other fatigue ICD-9: 780.79 ICD-10: R53.83 07/06/2018 Active Dizziness and giddiness ICD-9: 780.4 ICD-10: R42 06/13/2018 Active Elevated blood-press ure reading, without diagnosis of hypertension ICD-9: 796.2 ICD-10: R03.0 06/19/2018 Active Hypertension Unknown 06/13/2018 Active Influenza due to hasmukh ntified novel influenza A virus with other manifestations ICD-9: 488.09 ICD-10: J09.X9 04/26/2018 Active Acute pharyngitis, u nspecified ICD-9: 462 ICD-10: J02.9 04/25/2018 Active Pain in throat ICD-9: 784.1 ICD-10: R07.0 04/25/2018 Active Acute sinusitis, uns pecified ICD-9: 461.9 ICD-10: J01.90 07/05/2017 Active Paresthesia of skin ICD- 9: 782.0 ICD-10: R20.2 04/14/2018 Active Pain in right leg ICD-9: 729.5 ICD-10: M79.604 01/23/2018 Active Sciatica, right side ICD-9: 724.3 ICD-10: M54.31 01/31/2018 Active Acute bronchitis, un specified ICD-9: 466.0 ICD-10: J20.9 06/23/2016 Active Hyperglycemia, unspe cified ICD-9: 790.29 ICD-10: R73.9 01/26/2017 Active Abnormal levels of o ther serum enzymes ICD-9: 790.5 ICD-10: R74.8 08/18/2016 Active Encounter for genera l adult medical examination without abnormal findings ICD-9: V70.9 ICD-10: Z00.00 09/22/2017 Active Encounter for gyneco logical examination (general) (routine) with abnormal findings ICD-9: V72.31 ICD-10: Z01.411 09/22/2017 Active Encounter for screen ing for malignant neoplasm of colon ICD-9: V76.51 ICD-10: Z12.11 09/22/2017 Active Encounter for screen ing mammogram for malignant neoplasm of breast ICD-9: V76.11 ICD-10: Z12.31 09/22/2017 Active Impaired glucose anne erance (oral) ICD-9: 790.22 ICD-10: R73.02 02/02/2017 Active Nonalcoholic steatoh epatitis (MOORE) ICD-9: 571.8 ICD-10: K75.81 02/02/2017 Active Polycystic ovarian s yndrome ICD-9: 256.4 ICD-10: E28.2 12/17/2015 Active Pneumonia, unspecifi ed organism ICD-9: 486 ICD-10: J18.9 12/17/2015 Active VACCINE FOR TDAP ICD-9: V06.1 ICD-10: Z23 11/30/2016 Active Superficial foreign body, left foot, initial encounter ICD-9: 917.6 ICD-10: S90.852A 11/29/2016 Active Cough ICD-9: 786.2 ICD-10: R05 12/10/2015 Active Family history of ot her endocrine, nutritional and metabolic diseases ICD-9: V18.19 ICD-10: Z83.49 11/16/2016 Active Other hypertrophic d isorders of the skin ICD-9: 701.9 ICD-10: L91.8 10/05/2016 Active Other seasonal aller gic rhinitis ICD-9: 477.9 ICD-10: J30.2 09/06/2016 Active PNEUMOCOCCAL VACCINE ICD-9: V03.82 ICD-10: Z23 03/08/2016 Active Acute bronchospasm ICD- 9: 519.11 ICD-10: J98.01 12/10/2015 Active Medications Medication Codes Instruc tions Start Date Stop Date Sta tus Fill Instructions Xanax 0.25 mg tablet RxNorm: 182780 1 Tablet(s) PO as needed 10/31/2018 No Stop Date Active prednisone 20 mg tablet RxNorm: 931239 1 Tablet(s) PO BID 10/31/2018 11/04/2018 Active Zithromax Z-Ab 250 mg tablet RxNorm: 403320 Tablet(s) take as dir ected PO 10/31/2018 No Stop Date Active ProAir HFA 90 mcg/ac tuation aerosol inhaler RxNorm: 968884 2 Puff(s) INH Q4H as needed 10/31/2018 No Stop Date Active if insurance does not cover, please swit ch to ventolin. Trulicity 0.75 mg/0. 5 mL subcutaneous pen injector RxNorm: 6820168 1 Unit Dose SQ QW 10/31/2018 No Stop Date Active Ozempic 0.25 mg or 0 .5 mg (2 mg/1.5 mL) subcutaneous pen injector RxNorm: 5888298 0.5 Milligram(s) SQ QW 10/09/2018 10/30/2018 Inactive Ozempic 0.25 mg or 0 .5 mg (2 mg/1.5 mL) subcutaneous pen injector RxNorm: 9772536 0.5 Gram(s) SQ QW 10/05/2018 10/08/2018 Inactive lisinopril 40 mg tablet RxNorm: 688399 1 Tablet(s) PO QD 09/18/2018 12/16/2018 Active metformin 1,000 mg t ablet RxNorm: 789810 1 TABLET(S) PO QD 09/06/2018 03/04/2019 Active Trulicity 0.75 mg/0. 5 mL subcutaneous pen injector RxNorm: 3840433 0.75 Milligram(s) SQ QW Replaces Ozemic 08/28/2018 10/30/2018 Inactive replaces Ozempic Ozempic 0.25 mg or 0 .5 mg (2 mg/1.5 mL) subcutaneous pen injector RxNorm: 3260308 0.5 Milligram(s) SQ WEEKLY 08/28/2018 10/05/2018 Inactive metformin 1,000 mg t ablet RxNorm: 911999 1 Tablet(s) PO QD 08/23/2018 09/05/2018 Inactive Ozempic 0.25 mg or 0 .5 mg (2 mg/1.5 mL) subcutaneous pen injector RxNorm: 9109111 0.5 Milligram(s) SQ WEEKLY 08/03/2018 08/27/2018 Inactive amlodipine 5 mg tablet RxNorm: 517592 1 Tablet(s) PO QD 07/25/2018 11/21/2018 Active Lexapro 20 mg tablet RxNorm: 513329 1 Tablet(s) PO QD 07/10/2018 01/05/2019 Active lisinopril 40 mg tablet RxNorm: 836685 1 Tablet(s) PO QD 07/10/2018 09/07/2018 Inactive amlodipine 5 mg tablet RxNorm: 059812 1 Tablet(s) PO QD 06/22/2018 07/20/2018 Inactive lisinopril 40 mg tablet RxNorm: 482768 1 Tablet(s) PO QD 06/22/2018 07/09/2018 Inactive lisinopril 20 mg tablet RxNorm: 410308 1 Tablet(s) PO QD 06/19/2018 06/21/2018 Inactive lisinopril 5 mg tablet RxNorm: 988982 1 Tablet(s) PO QD 06/13/2018 06/18/2018 Inactive metformin 1,000 mg t ablet RxNorm: 808460 Tablet(s) TABLET(S) 1 TABLET(S) PO QD 06/08/2018 08/22/2018 In active Tamiflu 75 mg capsule RxNorm: 798116 1 Capsule(s) PO BID 04/26/2018 04/30/2018 Inactive Tamiflu 75 mg capsule RxNorm: 030268 1 Capsule(s) PO BID 04/26/2018 04/25/2018 Inactive prednisone 10 mg tablet RxNorm: 831044 1 Tablet(s) PO TID 04/25/2018 04/29/2018 Inactive prednisone 20 mg tablet RxNorm: 961869 1 Tablet(s) PO BID 04/14/2018 04/20/2018 Inactive Augmentin 500 mg-125 mg tablet RxNorm: 776784 1 Tablet(s) PO BID 04/14/2018 04/20/2018 Inactive metformin 1,000 mg t ablet RxNorm: 705799 TABLET(S) 1 TABLET(S) PO QD 03/09/2018 06/06/2018 Inactive celecoxib 200 mg cap lalito RxNorm: 365586 1 Capsule(s) PO BID for diana n 01/31/2018 03/01/2018 Inactive metformin 1,000 mg t ablet RxNorm: 804991 1 Tablet(s) PO BID 01/23/2018 No Stop Date Active Medrol (Ab) 4 mg ta blets in a dose pack RxNorm: 265323 Tablet(s) PO take as directed 01/23/2018 01/30/2018 Inactive Lexapro 20 mg tablet RxNorm: 865210 Tablet(s) 1 TABLET(S) PO QD 01/23/2018 06/21/2018 Inactive Lexapro 20 mg tablet RxNorm: 142654 Tablet(s) 1 TABLET(S) PO QD 11/03/2017 01/22/2018 Inactive metformin 1,000 mg t ablet RxNorm: 173792 1 Tablet(s) PO BID 09/27/2017 01/22/2018 Inactive Lexapro 20 mg tablet RxNorm: 733780 Tablet(s) 1 TABLET(S) PO QD 09/22/2017 11/02/2017 Inactive metformin 1,000 mg t ablet RxNorm: 148269 Tablet(s) 1 TABLET(S) PO QD 09/22/2017 09/26/2017 Inactive Xanax 0.25 mg tablet RxNorm: 656130 1 Tablet(s) PO as needed 09/22/2017 10/30/2018 Inactive metformin 1,000 mg t ablet RxNorm: 825025 Tablet(s) 1 TABLET(S) PO QD NEEDS UPDATED LABS 09/06/2017 09/20/2017 Inactive metformin 1,000 mg t ablet RxNorm: 312872 1 TABLET(S) PO QD NEE DS UPDATED LABS 08/24/2017 09/05/2017 In active metformin 1,000 mg t ablet RxNorm: 673882 1 Tablet(s) PO QD Nee ds updated labs 08/08/2017 08/22/2017 In active Lexapro 20 mg tablet RxNorm: 553821 1 TABLET(S) PO QD 07/17/2017 09/21/2017 Inactive pseudoephedrine 30 m g tablet RxNorm: 5014591 1-2 Tablet(s) PO Q6H 07/05/2017 06/12/2018 Inactive Augmentin 875 mg-125 mg tablet RxNorm: 411016 1 Tablet(s) PO BID 07/05/2017 07/14/2017 Inactive metformin 1,000 mg t ablet RxNorm: 964221 1 Tablet(s) PO QD Nee ds updated labs 07/04/2017 08/08/2017 In active metformin 1,000 mg t ablet RxNorm: 880843 1 Tablet(s) PO QD Nee ds updated labs 05/30/2017 07/04/2017 In active Levaquin 750 mg tablet RxNorm: 167118 1 Tablet(s) PO QD 03/04/2017 03/10/2017 Inactive ProAir HFA 90 mcg/ac tuation aerosol inhaler RxNorm: 560657 2 Puff(s) INH Q4H as needed 03/04/2017 07/04/2017 Inactive if insurance does not cover, please swit ch to lita. Tamiflu 75 mg capsule RxNorm: 734909 1 Capsule(s) PO QD 03/04/2017 03/10/2017 Inactive metformin 1,000 mg t ablet RxNorm: 276853 1 Tablet(s) PO QD 02/15/2017 05/15/2017 Inactive Lexapro 20 mg tablet RxNorm: 801960 1 Tablet(s) PO QD 01/17/2017 11/03/2017 Inactive cephalexin 500 mg ca psule RxNorm: 221782 1 Capsule(s) PO TID 11/29/2016 12/08/2016 Inactive pantoprazole 40 mg t ablet,delayed release RxNorm: 627297 1 Tablet(s) PO QD 11/16/2016 03/15/2017 In active metformin 1,000 mg t ablet RxNorm: 517400 TAKE 1 TABLET BY MOUT H EVERY DAY 10/10/2016 02/15/2017 In active Flonase Allergy Reli ef 50 mcg/actuation nasal spray,suspension RxNorm: 0992705 2 [place] NASAL QHS 09/06/2016 11/15/2016 Inactive Singulair 10 mg tablet RxNorm: 733510 1 Tablet(s) PO QHS 09/06/2016 11/15/2016 Inactive Singulair 10 mg tablet RxNorm: 117964 1 Tablet(s) PO QHS 08/12/2016 09/05/2016 Inactive ProAir HFA 90 mcg/ac tuation aerosol inhaler RxNorm: 088383 1 Puff(s) INH Q4H as needed 08/12/2016 08/15/2016 Inactive Medrol (Ab) 4 mg ta blets in a dose pack RxNorm: 522842 Tablet(s) PO As Direc kenny 07/29/2016 08/15/2016 In active Lexapro 20 mg tablet RxNorm: 697311 1 Tablet(s) PO QD 07/06/2016 01/17/2017 Inactive doxycycline hyclate 100 mg capsule RxNorm: 4024403 1 Capsule(s) PO BID 06/24/2016 06/23/2016 In active doxycycline hyclate 100 mg capsule RxNorm: 6165435 1 Capsule(s) PO BID 06/24/2016 07/03/2016 In active ProAir HFA 90 mcg/ac tuation aerosol inhaler RxNorm: 262711 1 Puff(s) INH Q4H as needed 06/23/2016 08/11/2016 Inactive prednisone 20 mg tablet RxNorm: 329729 1 Tablet(s) PO BID 06/23/2016 06/27/2016 Inactive metformin 1,000 mg t ablet RxNorm: 807694 1 Tablet(s) PO QD 12/18/2015 06/14/2016 Inactive Lexapro 20 mg tablet RxNorm: 433642 1 Tablet(s) PO QD 12/18/2015 07/06/2016 Inactive prednisone 20 mg tablet RxNorm: 128374 Take 3 tabs PO QD x 3 days, then 2 tabs PO QD x 3 days, then 1 tab PO QD x 3 days 12/01/2015 12/10/2015 Inactive albuterol sulfate 2. 5 mg/3 mL (0.083 %) solution for nebulization RxNorm: 333977 3 Milliliter(s) INH Q4H as needed 07/04/2017 Inactive Singulair 10 mg tablet RxNorm: 623966 1 Tablet(s) PO QHS No Start Date 08/11/2016 Inactive Breo Ellipta 100 mcg -25 mcg/dose powder for inhalation RxNorm: 6806448 1 Puff(s) INH QD No Start Date 02/01/2017 Inactive Zyrtec 10 mg tablet RxNorm: 1413843 1 Tablet(s) PO QAM No Start Date 11/15/2016 Inactive Xanax 0.25 mg tablet RxNorm: 599581 1 Tablet(s) PO as needed No Start Date 09/21/2017 Inactive metformin 1,000 mg t ablet RxNorm: 054831 1 Tablet(s) PO QD No Start Date 12/17/2015 Inactive Singulair 10 mg tablet RxNorm: 745950 1 Tablet(s) PO QHS No Start Date 11/15/2016 Inactive metformin 1,000 mg t ablet RxNorm: 407805 1 Tablet(s) PO QD No Start Date 02/14/2017 Inactive metformin 1,000 mg t ablet RxNorm: 082423 1 Tablet(s) PO BID No Start Date 09/26/2017 Inactive Trulicity 0.75 mg/0. 5 mL subcutaneous pen injector RxNorm: 9384675 0.75 Milligram(s) SQ QW No Start Date 08/27/2018 Inactive Medrol (Ab) 4 mg ta blets in a dose pack RxNorm: 198402 Tablet(s) PO As Direc kenny No Start Date 07/28/2016 Inactive Lexapro 20 mg tablet RxNorm: 424988 1 Tablet(s) PO QD No Start Date 12/17/2015 Inactive Lexapro 20 mg tablet RxNorm: 610650 1 Tablet(s) PO QD No Start Date 07/09/2018 Inactive Medication Administered No Medication Administered data Immunizations Vaccine Codes Date Status Tetanus, Diptheria, Pertussis CVX: 115 11/30/2016 completed Pneumococcal CVX: 133 completed Assessments Condition Codes Effectiv e Dates Acute upper respiratory infection, unspecified ICD-10: J06.9 ICD-9: 465.9 10/31/2018 Encounter for therapeutic drug level monitoring ICD-10: Z51.81 ICD-9: V58.83 10/31/2018 Type 2 diabetes mellitus with hyperglycemia ICD-10: E11.65 ICD-9: 250.02 10/31/2018 Generalized anxiety disorder ICD-10: F41.1 ICD-9: 308.0 10/31/2018 Essential (primary) hypertension ICD -10: I10 ICD-9: 401.9 08/08/2018 Other fatigue ICD-10: R53.83 ICD-9: 780.79 07/06/2018 Elevated blood-pressure reading, without diagnosis of hypertension ICD-10: R03.0 ICD-9: 796.2 06/19/2018 Dizziness and giddiness ICD-10: R42 ICD-9: 780.4 06/19/2018 Influenza due to identified novel influe nza A virus with other manifestations ICD-10: J09.X9 ICD-9: 488.09 04/26/2018 Acute pharyngitis, unspecified ICD-1 0: J02.9 ICD-9: 462 04/25/2018 Pain in throat ICD-10: R07.0 ICD-9: 784.1 04/25/2018 Paresthesia of skin ICD-10: R20.2 ICD-9: 782.0 04/14/2018 Acute sinusitis, unspecified ICD-10: J01.90 ICD-9: 461.9 04/14/2018 Sciatica, right side ICD-10: M54.31 ICD-9: 724.3 01/31/2018 Pain in right leg ICD-10: M79.604 ICD-9: 729.5 01/31/2018 Acute bronchitis, unspecified ICD-10 : J20.9 ICD-9: 466.0 11/10/2017 Hyperglycemia, unspecified ICD-10: R 73.9 ICD-9: 790.29 09/26/2017 Encounter for general adult medical exam ination without abnormal findings ICD-10: Z00.00 ICD-9: V70.9 09/22/2017 Abnormal levels of other serum enzymes ICD-10: R74.8 ICD-9: 790.5 09/22/2017 Encounter for gynecological examination (general) (routine) with abnormal findings ICD-10: Z01.411 ICD-9: V72.31 09/22/2017 Impaired glucose tolerance (oral) IC D-10: R73.02 ICD-9: 790.22 09/22/2017 Nonalcoholic steatohepatitis (MOORE) ICD-10: K75.81 ICD-9: 571.8 09/22/2017 Encounter for screening for malignant neoplasm of colo n ICD- 10: Z12.11 ICD-9: V76.51 09/22/2017 Encounter for screening mammogram for ma lignant neoplasm of breast ICD-10: Z12.31 ICD-9: V76.11 09/22/2017 Polycystic ovarian syndrome ICD-10: E28.2 ICD-9: 256.4 09/22/2017 Pneumonia, unspecified organism ICD- 10: J18.9 ICD-9: 486 03/04/2017 VACCINE FOR TDAP ICD-10: Z23 ICD-9: V06.1 11/30/2016 Superficial foreign body, left foot, initial encounter ICD-10: S90.852A ICD-9: 917.6 11/29/2016 Family history of other endocrine, nutri tional and metabolic diseases ICD-10: Z83.49 ICD-9: V18.19 11/16/2016 Cough ICD-10: R05 ICD-9: 786.2 11/16/2016 Other hypertrophic disorders of the skin ICD-10: L91.8 ICD-9: 701.9 10/05/2016 Other seasonal allergic rhinitis ICD -10: J30.2 ICD-9: 477.9 09/06/2016 PNEUMOCOCCAL VACCINE ICD-10: Z23 ICD-9: V03.82 03/09/2016 Acute bronchospasm ICD-10: J98.01 ICD-9: 519.11 12/11/2015 Reason For Visit Reason For Visit Effective Dates Notes headache 10/31/2018 follow up 08/08/2018 follow up 07/06/2018 fatigue 06/19/2018 dizziness 06/13/2018 sta rted yesterday at 2:30 lab draw 04/26/2018 here for flu swab cough 04/25/2018 sore throat 04/14/2018 [facility] treated her with Zpack and finished yesterday however she wasn't checked for flu or strep follow up 01/31/2018 lower leg pain 01/23/2018 right leg cough 11/10/2017 patient was seen at [facility] and given Levaquin and 5 day steroid well woman exam (40-65 years) 09/22/2017 [facility] 2016 cough 07/05/2017 mucus, runny nose follow up 03/04/2017 Pat ient was placed on Medrol Dose Pack and Antibiotic (unable to remember). follow up 02/02/2017 injection(s) 11/30/2016 TDAP foot pain 11/29/2016 follow up 11/16/2016 ENT had her stop flonase, zyrtec and singulair prior to allergy testing and hasn't restarted anything since it wasn't helping acrochordon (skin tags) 10/05/2016 follow up 09/06/2016 follow up 08/16/2016 Sti ll taking proair, singulair and zyrtec cough 06/23/2016 injection(s) 03/09/2016 Prevnar 13 follow up 12/18/2015 1wk fwup follow up 12/11/2015 Pat ient has finished round of doxycycline, levaquin and prednisone follow up 12/08/2015 1 [place] ~generic 12/01/[facility] Results Observation Observation Code Item Item Code Result Date VIRAL HEPATITIS PROFILE #2 23471 Hep A IgM Non-Reactive 06/21/19 19 VIRAL HEPATITIS PROFILE #2 00329 Hep B Core IgM Non-Reactive 06/20/2018 VIRAL HEPATITIS PROFILE #2 28916 Hepatitis C Ab Non-Reactive 06/20/2018 VIRAL HEPATITIS PROFILE #2 [id number] Hep Bs Ag Non-Reactive 06/21/19 19 MEAN GLUC 7710311 Calc M alexandra Gluc 194 mg/dL 06/19/2018 COMPREHENSIVE METABOLIC 56848 AST 94 U/L 06/19/2018 COMPREHENSIVE METABOLIC 43188 ALT 160 U/L 06/19/2018 COMPREHENSIVE METABOLIC 37921 BUN 9 mg/dL 06/19/2018 COMPREHENSIVE METABOLIC 88744 ALBUMIN 4.6 g/dL 06/19/2018 COMPREHENSIVE METABOLIC 59252 CHLORIDE 101 mmol/L 06/19/2018 COMPREHENSIVE METABOLIC 80169 Bili Total 0.9 mg/dL 06/19/2018 COMPREHENSIVE METABOLIC 33369 ALK PHOS 64 U/L 06/19/2018 COMPREHENSIVE METABOLIC 00136 SODIUM 136 mmol/L 06/19/2018 COMPREHENSIVE METABOLIC 17974 CREATININE 0.58 mg/dL 06/19/2018 COMPREHENSIVE METABOLIC 91192 CALCIUM 10.3 mg/dL 06/19/2018 COMPREHENSIVE METABOLIC 11493 POTASSIUM 3.7 mmol/L 06/19/2018 COMPREHENSIVE METABOLIC 95779 Total Protein 7.1 g/dL 06/19/2018 COMPREHENSIVE METABOLIC 69585 Glucose 187 mg/dL 06/19/2018 COMPREHENSIVE METABOLIC 88051 Bicarbonate 26 mmol/L 06/19/2018 COMPREHENSIVE METABOLIC 81062 AGAP 9 mmol/L 06/19/2018 GLYCOSYLATED HEMOGLOBIN TEST 74124 Hgb A1c 82933-3 8.4 % 06/19/2018 COMPLETE BLOOD COUNT 2041383 WBC 6.2 10e9/L 06/19/2018 COMPLETE BLOOD COUNT 3347220 RBC 4.70 10e12/L 9 COMPLETE BLOOD COUNT 6185553 HEMOGLOBIN 13.4 g/dL 06/19/2018 COMPLETE BLOOD COUNT 4024366 HEMATOCRIT 39.9 % 06/19/2018 COMPLETE BLOOD COUNT 3379057 MCV 84.9 fL 06/19/2018 COMPLETE BLOOD COUNT 2089767 MCH 28.5 pg 06/19/2018 COMPLETE BLOOD COUNT 8888171 MCHC 33.6 g/dL 06/19/2018 COMPLETE BLOOD COUNT 5450413 PLATELET COUNT 252 10e9/L 06/19/2018 COMPLETE BLOOD COUNT 0587853 Mean Plt Volume 12.2 fL 06/19/2018 COMPLETE BLOOD COUNT 1807747 Neut Auto 53.9 % 06/19/2018 COMPLETE BLOOD COUNT 7241075 Lymph Auto 35.2 % 06/19/2018 COMPLETE BLOOD COUNT 9104857 [place] Auto 7.1 % 06/19/2018 COMPLETE BLOOD COUNT 6298271 RDW 14.1 % 06/19/2018 COMPLETE BLOOD COUNT 8082267 Eos Auto 3.2 % 06/19/2018 COMPLETE BLOOD COUNT 6550355 Baso Auto 0.6 % 06/19/2018 COMPLETE BLOOD COUNT 5411038 Neutrophil Abs 3.34 10e9/L 06/19/2018 COMPLETE BLOOD COUNT 9046090 Lymphocyte Abs 2.18 10e9/L 06/19/2018 COMPLETE BLOOD COUNT 6365811 Monocyte Abs 0.44 10e9/L 06/19/2018 COMPLETE BLOOD COUNT 1461984 Eosinophil Abs 0.20 10e9/L 06/19/2018 COMPLETE BLOOD COUNT 2207544 RDW-SD 42.7 fL 06/19/2018 COMPLETE BLOOD COUNT 9694073 Basophil Abs 0.04 10e9/L 06/19/2018 THYROID STIMULATING HORMONE 85925 TSH 1.976 uIU/mL 9 GFR CALC 9843305 GFR Non Afr Amr >60 mL/min 06/19/2018 GFR CALC 3447482 GFR Afr Amr >60 mL/min 06/19/2018 SURESWAB(R), BACTERIAL VAGINOSIS/VAGINITIS 88947 BV CATEGORY: TNP 09/27/2017 SURESWAB(R), BACTERIAL VAGINOSIS/VAGINITIS 61527 LACTOBACILLUS SPECIES DNR 09/27/2017 SURESWAB(R), BACTERIAL VAGINOSIS/VAGINITIS 34185 ATOPOBIUM VAGINAE DNR 09/27/2017 SURESWAB(R), BACTERIAL VAGINOSIS/VAGINITIS 94569 MEGASPHAERA SPECIES DN R 09/27/2017 SURESWAB(R), BACTERIAL VAGINOSIS/VAGINITIS 41089 GARDNERELLA VAGINALIS DNR 09/27/2017 SURESWAB(R), BACTERIAL VAGINOSIS/VAGINITIS 74616 SURESWAB(R) TRICHOMONAS VAGINALIS RNA, QL TMA TNP 09/27/2017 SURESWAB(R), BACTERIAL VAGINOSIS/VAGINITIS 18346 C. ALBICANS, DNA TNP 09/27/2017 SURESWAB(R), BACTERIAL VAGINOSIS/VAGINITIS 94580 C. GLABRATA, DNA DNR 09/27/2017 SURESWAB(R), BACTERIAL VAGINOSIS/VAGINITIS 50638 C. TROPICALIS, DNA DNR 09/27/2017 SURESWAB(R), BACTERIAL VAGINOSIS/VAGINITIS 87395 C. PARAPSILOSIS, DNA D NR 09/27/2017 THINPREP TIS AND HPV mRNA E6/E7 30466 REPORT STATUS: DNR 09/27/2017 THINPREP TIS AND HPV mRNA E6/E7 46960 CLINICAL INFORMATION: 09/27/2017 THINPREP TIS AND HPV mRNA E6/E7 22851 LMP: 09/02/2017 09/27/2017 THINPREP TIS AND HPV mRNA E6/E7 89438 PREV. PAP: 09/27/2017 THINPREP TIS AND HPV mRNA E6/E7 93628 PREV. BX: 09/27/2017 THINPREP TIS AND HPV mRNA E6/E7 03699 SOURCE: Cervix 09/27/2017 THINPREP TIS AND HPV mRNA E6/E7 35724 STATEMENT OF ADEQUACY: 09/27/2017 THINPREP TIS AND HPV mRNA E6/E7 26608 GENERAL CATEGORIZATION: DNR 09/27/2017 THINPREP TIS AND HPV mRNA E6/E7 77533 INTERPRETATION/RESULT: 09/27/2017 THINPREP TIS AND HPV mRNA E6/E7 90553 INFECTION: DNR 09/27/2017 THINPREP TIS AND HPV mRNA E6/E7 41916 COMMENT: 09/27/2017 THINPREP TIS AND HPV mRNA E6/E7 [id number] DEPUTY BAILIFF: 09/27/2017 THINPREP TIS AND HPV mRNA E6/E7 31556 REVIEW DEPUTY BAILIFF: DNR 09/27/2017 THINPREP TIS AND HPV mRNA E6/E7 [id number] PATHOLOGIST: DNR 09/27/2017 THINPREP TIS AND HPV mRNA E6/E7 54868 COMMENT 09/27/2017 THINPREP TIS AND HPV mRNA E6/E7 40477 HPV mRNA E6/E7 Not Detected 09/27/2017 CULTURE, GENITAL 31199 C ULTURE, GENITAL SEE NOTE 09/25/2017 CULTURE, THROAT 80606 CU LTURE, THROAT SEE NOTE 08/19/2016 Review of Systems System Result Effective Dates Constitutional No fatigue 10/31/2018 Constitutional No chills 10/31/2018 Respiratory cough 2018 Respiratory No dyspnea 0 10/31/2018 Respiratory No chest congestion 10/31/2018 Respiratory No chest tightness 10/31/2018 Respiratory wheezing 04/2018 Ears/Nose/Throat/Neck sore throat 10/31/2018 Neurologic headache 09/0 04/2018 Musculoskeletal No myalgias 10/31/2018 Endocrine diabetes mellitus type 2 10/31/2018 Psychiatric anxiety 09/0 04/2018 Cardiovascular hypertension 08/08/2018 Endocrine diabetes mellitus type 2 08/08/2018 Constitutional fatigue 0 08/08/2018 Constitutional fatigue 0 07/06/2018 Endocrine diabetes mellitus type 2 07/06/2018 Cardiovascular hypertension 07/06/2018 Cardiovascular fatigue 0 07/06/2018 Constitutional No fussiness 06/19/2018 Constitutional No night sweats 06/19/2018 Constitutional No anorexia 06/19/2018 Constitutional No chills 06/19/2018 Constitutional No diaphoresis 06/19/2018 Constitutional No recent illness 06/19/2018 Constitutional fatigue 0 06/19/2018 Constitutional No fever 06/19/2018 Constitutional No insomnia 06/19/2018 Constitutional No malaise 06/19/2018 Constitutional No weight gain/obesity 06/19/2018 Constitutional No weight loss 06/19/2018 Eyes No eye pain 019 Eyes No vision change Ears/Nose/Throat/Neck dizziness 06/19/2018 Ears/Nose/Throat/Neck headache 06/19/2018 Cardiovascular No chest pain/pressure 06/19/2018 Cardiovascular No dyspnea 06/19/2018 Cardiovascular fatigue 0 06/19/2018 Cardiovascular No palpitations 06/19/2018 Cardiovascular No cardiac murmur 06/19/2018 Cardiovascular hypertension 06/19/2018 Respiratory No cough Respiratory No chest tightness 06/19/2018 Respiratory No chest congestion 06/19/2018 Gastrointestinal No diarrhea 06/19/2018 Gastrointestinal No constipation 06/19/2018 Gastrointestinal No nausea 06/19/2018 Genitourinary/Nephrology No dysuria 06/19/2018 Musculoskeletal No back pain 06/19/2018 Musculoskeletal No muscle weakness 06/19/2018 Dermatologic No rash Dermatologic No sores Neurologic dizziness Hematologic/Lymphatic No abnormal ec chymoses 06/19/2018 Hematologic/Lymphatic No abnormal bl eeding and bruising 06/19/2018 Psychiatric stress 06/19 Constitutional No recent illness 06/13/2018 Constitutional No fatigue 06/13/2018 Constitutional No fever 06/13/2018 Constitutional No insomnia 06/13/2018 Constitutional No malaise 06/13/2018 Constitutional No weight gain/obesity 06/13/2018 Constitutional No weight loss 06/13/2018 Constitutional No diaphoresis 06/13/2018 Constitutional No chills 06/13/2018 Constitutional No anorexia 06/13/2018 Constitutional No night sweats 06/13/2018 Constitutional No fussiness 06/13/2018 Eyes No eye pain 019 Eyes No visual disturbance 06/13/2018 Eyes No vision change Ears/Nose/Throat/Neck dizziness 06/13/2018 Ears/Nose/Throat/Neck headache 06/13/2018 Ears/Nose/Throat/Neck No sinus congestion 06/13/2018 Ears/Nose/Throat/Neck No sinusitis 06/13/2018 Ears/Nose/Throat/Neck No sore throat 06/13/2018 Cardiovascular No chest pain/pressure 06/13/2018 Cardiovascular No near-syncope/dizziness 06/13/2018 Cardiovascular No dyspnea 06/13/2018 Cardiovascular No cardiac murmur 06/13/2018 Cardiovascular No arrhythmia 06/13/2018 Cardiovascular No fatigue 06/13/2018 Cardiovascular No hypertension 06/13/2018 Cardiovascular No palpitations 06/13/2018 Respiratory No dyspnea 0 06/13/2018 Respiratory No chest tightness 06/13/2018 Respiratory No chest congestion 06/13/2018 Respiratory No wheezing 06/13/2018 Gastrointestinal No vomiting 06/13/2018 Gastrointestinal No nausea 06/13/2018 Gastrointestinal No gas and bloating 06/13/2018 Gastrointestinal No diarrhea 06/13/2018 Gastrointestinal No constipation 06/13/2018 Gastrointestinal No abdominal pain 06/13/2018 Genitourinary/Nephrology No dysuria 06/13/2018 Musculoskeletal No low back pain 06/13/2018 Musculoskeletal No arthralgia(s) 06/13/2018 Musculoskeletal No back pain 06/13/2018 Dermatologic No rash Dermatologic No sores Neurologic No alteration of consciousness 06/13/2018 Neurologic No mental status change 06/13/2018 Neurologic No weakness 0 06/13/2018 Neurologic No vision change 06/13/2018 Neurologic No spasms/spasticity 06/13/2018 Neurologic dizziness Neurologic No pain, limb 06/13/2018 Neurologic No pain, generalized 06/13/2018 Neurologic No pain, facial 06/13/2018 Neurologic No pain, back 06/13/2018 Neurologic No gait abnormality 06/13/2018 Neurologic No syncope Neurologic No tinnitus 0 06/13/2018 Neurologic No vertigo Psychiatric No anxiety 0 06/13/2018 Psychiatric No depression 06/13/2018 Hematologic/Lymphatic No abnormal ec chymoses 06/13/2018 Hematologic/Lymphatic No abnormal bl eeding and bruising 06/13/2018 Constitutional No night sweats 04/25/2018 Constitutional No fussiness 04/25/2018 Constitutional No anorexia 04/25/2018 Constitutional No chills 04/25/2018 Constitutional recent illness 04/25/2018 Constitutional No fever 04/25/2018 Constitutional No malaise 04/25/2018 Constitutional No weight gain/obesity 04/25/2018 Eyes No eye pain 019 Eyes No vision change Ears/Nose/Throat/Neck No dizziness 04/25/2018 Ears/Nose/Throat/Neck No headache 04/25/2018 Ears/Nose/Throat/Neck No hearing loss 04/25/2018 Ears/Nose/Throat/Neck nasal discharge 04/25/2018 Ears/Nose/Throat/Neck No nasal allergies 04/25/2018 Ears/Nose/Throat/Neck No nasal pain 04/25/2018 Ears/Nose/Throat/Neck postnasal drip 04/25/2018 Ears/Nose/Throat/Neck sinusitis 04/25/2018 Ears/Nose/Throat/Neck sinus congestion 04/25/2018 Ears/Nose/Throat/Neck sore throat 04/25/2018 Ears/Nose/Throat/Neck No tonsillitis 04/25/2018 Cardiovascular No chest pain/pressure 04/25/2018 Cardiovascular No dyspnea 04/25/2018 Cardiovascular No edema 04/25/2018 Respiratory cough 2018 Respiratory No chest congestion 04/25/2018 Respiratory No chest tightness 04/25/2018 Respiratory No cigarette smoking 04/25/2018 Respiratory No asthma Gastrointestinal No diarrhea 04/25/2018 Gastrointestinal No anorexia 04/25/2018 Gastrointestinal No nausea 04/25/2018 Genitourinary/Nephrology No dysuria 04/25/2018 Musculoskeletal No myalgias 04/25/2018 Dermatologic No rash Dermatologic No sores Neurologic No alteration of consciousness 04/25/2018 Neurologic No mental status change 04/25/2018 Psychiatric No anxiety 0 04/25/2018 Psychiatric No depression 04/25/2018 Hematologic/Lymphatic No abnormal bl eeding and bruising 04/25/2018 Constitutional fatigue 0 04/14/2018 Ears/Nose/Throat/Neck sinus congestion 04/14/2018 Ears/Nose/Throat/Neck sinusitis 04/14/2018 Respiratory No asthma Respiratory No cough Respiratory No dyspnea 0 04/14/2018 Respiratory No pleuritic pain 04/14/2018 Respiratory No productive sputum 04/14/2018 Respiratory No wheezing 04/14/2018 Neurologic headache 03/31 Musculoskeletal No muscle weakness 01/31/2018 Musculoskeletal No myalgias 01/31/2018 Musculoskeletal No stiffness 01/31/2018 Musculoskeletal No swelling 01/31/2018 Musculoskeletal joint complaint 01/31/2018 Constitutional No fatigue 01/23/2018 Constitutional No fever 01/23/2018 Constitutional No chills 01/23/2018 Musculoskeletal joint complaint 01/23/2018 Musculoskeletal No myalgias 01/23/2018 Constitutional No fever 11/10/2017 Constitutional No fatigue 11/10/2017 Constitutional No chills 11/10/2017 Musculoskeletal No myalgias 11/10/2017 Ears/Nose/Throat/Neck No otalgia 11/10/2017 Ears/Nose/Throat/Neck No sinus congestion 11/10/2017 Ears/Nose/Throat/Neck No sinusitis 11/10/2017 Ears/Nose/Throat/Neck No sore throat 11/10/2017 Respiratory cough 2017 Respiratory chest congestion 11/10/2017 Respiratory chest tightness 11/10/2017 Respiratory wheezing Neurologic headache 10/29 Constitutional No chills 09/22/2017 Constitutional No fatigue 09/22/2017 Constitutional No fever 09/22/2017 Eyes No visual disturbance 09/22/2017 Ears/Nose/Throat/Neck No dizziness 09/22/2017 Cardiovascular No cardiac murmur 09/22/2017 Cardiovascular No chest pain/pressure 09/22/2017 Cardiovascular No hypertension 09/22/2017 Respiratory No cough Gastrointestinal No abdominal pain 09/22/2017 Gastrointestinal No constipation 09/22/2017 Gastrointestinal No diarrhea 09/22/2017 Genitourinary/Nephrology No anuria/oliguri a 09/22/2017 Genitourinary/Nephrology No vaginal drynes s 09/22/2017 Genitourinary/Nephrology No dysuria 09/22/2017 Musculoskeletal No back pain 09/22/2017 Dermatologic No rash Neurologic No alteration of consciousness 09/22/2017 Neurologic No dizziness 09/22/2017 Psychiatric anxiety 08/29 Psychiatric No stress Psychiatric No depression 09/22/2017 Hematologic/Lymphatic No abnormal bl eeding and bruising 09/22/2017 Allergy/Immunology No food allergy 09/22/2017 Psychiatric No suicidality 09/22/2017 Endocrine hyperglycemia 09/22/2017 Constitutional fatigue 0 07/05/2017 Constitutional No fever 07/05/2017 Constitutional No chills 07/05/2017 Respiratory No cough 09/2017 Ears/Nose/Throat/Neck nasal discharge 07/05/2017 Ears/Nose/Throat/Neck otalgia 07/05/2017 Ears/Nose/Throat/Neck sinus congestion 07/05/2017 Ears/Nose/Throat/Neck sinusitis 07/05/2017 Ears/Nose/Throat/Neck sore throat 07/05/2017 Musculoskeletal No myalgias 07/05/2017 Gastrointestinal No abdominal pain 07/05/2017 Gastrointestinal No constipation 07/05/2017 Gastrointestinal diarrhea 07/05/2017 Gastrointestinal nausea 07/05/2017 Cardiovascular No chest pain/pressure 07/05/2017 Respiratory No chest tightness 07/05/2017 Respiratory No chest congestion 07/05/2017 Respiratory No dyspnea on exertion 07/05/2017 Constitutional fever 06/2017 Constitutional chills Constitutional fatigue 0 03/04/2017 Musculoskeletal myalgias 03/04/2017 Respiratory chest congestion 03/04/2017 Respiratory chest tightness 03/04/2017 Respiratory cough 2017 Ears/Nose/Throat/Neck sore throat 03/04/2017 Ears/Nose/Throat/Neck No otalgia 03/04/2017 Gastrointestinal No abdominal pain 03/04/2017 Gastrointestinal No vomiting 03/04/2017 Gastrointestinal nausea 03/04/2017 Genitourinary/Nephrology No anuria/oliguri a 03/04/2017 Genitourinary/Nephrology No dysuria 03/04/2017 Respiratory dyspnea on exertion 03/04/2017 Constitutional No night sweats 02/02/2017 Constitutional No fatigue 02/02/2017 Constitutional No fever 02/02/2017 Constitutional No insomnia 02/02/2017 Constitutional No weight loss 02/02/2017 Eyes No eye pain 017 Eyes No photophobia 07/2016 Eyes No vision change Eyes No visual disturbance 02/02/2017 Ears/Nose/Throat/Neck No hearing loss 02/02/2017 Ears/Nose/Throat/Neck No nasal discharge 02/02/2017 Ears/Nose/Throat/Neck No sinus congestion 02/02/2017 Ears/Nose/Throat/Neck No sore throat 02/02/2017 Cardiovascular No arrhythmia 02/02/2017 Cardiovascular No chest pain/pressure 02/02/2017 Cardiovascular No edema 02/02/2017 Cardiovascular No exercise intolerance 02/02/2017 Cardiovascular No orthopnea 02/02/2017 Cardiovascular No palpitations 02/02/2017 Respiratory No asthma Respiratory No cough 07/2016 Respiratory No dyspnea 1 04/05/2016 Respiratory No pleuritic pain 02/02/2017 Respiratory No productive sputum 02/02/2017 Respiratory No wheezing 02/02/2017 Gastrointestinal No hemorrhoids 02/02/2017 Gastrointestinal No hepatitis 02/02/2017 Gastrointestinal No abdominal pain 02/02/2017 Gastrointestinal No constipation 02/02/2017 Gastrointestinal No diarrhea 02/02/2017 Gastrointestinal No gastroesophageal reflu x 02/02/2017 Gastrointestinal No melena 02/02/2017 Gastrointestinal No nausea 02/02/2017 Gastrointestinal No vomiting 02/02/2017 Genitourinary/Nephrology No dysuria 02/02/2017 Genitourinary/Nephrology No nocturia 02/02/2017 Genitourinary/Nephrology No urinary incontinence 02/02/2017 Musculoskeletal No muscle weakness 02/02/2017 Musculoskeletal No myalgias 02/02/2017 Musculoskeletal No stiffness 02/02/2017 Musculoskeletal No swelling 02/02/2017 Dermatologic No rash 07/2016 Dermatologic No scar 07/2016 Neurologic No dizziness 02/02/2017 Neurologic No headache 1 04/05/2016 Neurologic No neck pain 02/02/2017 Neurologic No syncope Psychiatric No anxiety 1 04/05/2016 Psychiatric No depression 02/02/2017 Endocrine No goiter /0 07/2016 Endocrine No hyperglycemia 02/02/2017 Endocrine No hypoglycemia 02/02/2017 Hematologic/Lymphatic No abnormal ec chymoses 02/02/2017 Hematologic/Lymphatic No petechiae 02/02/2017 Hematologic/Lymphatic No abnormal bl eeding and bruising 02/02/2017 Hematologic/Lymphatic No anemia 02/02/2017 Hematologic/Lymphatic No lymph node enlargement/mass 02/02/2017 Allergy/Immunology No food allergy 02/02/2017 Musculoskeletal joint complaint 11/29/2016 Respiratory No asthma Respiratory cough 2016 Respiratory No dyspnea 0 11/16/2016 Respiratory No pleuritic pain 11/16/2016 Respiratory No productive sputum 11/16/2016 Respiratory No wheezing 11/16/2016 Gastrointestinal No hemorrhoids 11/16/2016 Gastrointestinal No hepatitis 11/16/2016 Gastrointestinal No abdominal pain 11/16/2016 Gastrointestinal No constipation 11/16/2016 Gastrointestinal No diarrhea 11/16/2016 Gastrointestinal No gastroesophageal reflu x 11/16/2016 Gastrointestinal No melena 11/16/2016 Gastrointestinal No nausea 11/16/2016 Gastrointestinal No vomiting 11/16/2016 Ears/Nose/Throat/Neck No hearing loss 11/16/2016 Ears/Nose/Throat/Neck No nasal discharge 11/16/2016 Ears/Nose/Throat/Neck No sinus congestion 11/16/2016 Ears/Nose/Throat/Neck No sore throat 11/16/2016 Constitutional fatigue 0 11/16/2016 Constitutional weight gain/obesity 11/16/2016 Endocrine No goiter 10/29 Endocrine No hyperglycemia 11/16/2016 Endocrine No hypoglycemia 11/16/2016 Dermatologic acrochordon (skin tags) 10/05/2016 Respiratory cough 2016 Ears/Nose/Throat/Neck No hearing loss 09/06/2016 Ears/Nose/Throat/Neck No nasal discharge 09/06/2016 Ears/Nose/Throat/Neck No sinus congestion 09/06/2016 Ears/Nose/Throat/Neck No sore throat 09/06/2016 Ears/Nose/Throat/Neck postnasal drip 09/06/2016 Gastrointestinal No hemorrhoids 09/06/2016 Gastrointestinal No hepatitis 09/06/2016 Gastrointestinal No abdominal pain 09/06/2016 Gastrointestinal No constipation 09/06/2016 Gastrointestinal No diarrhea 09/06/2016 Gastrointestinal No gastroesophageal reflu x 09/06/2016 Gastrointestinal No melena 09/06/2016 Gastrointestinal No nausea 09/06/2016 Gastrointestinal No vomiting 09/06/2016 Constitutional weight gain/obesity 09/06/2016 Dermatologic skin lesion 09/06/2016 Constitutional No night sweats 08/16/2016 Constitutional No fatigue 08/16/2016 Constitutional No fever 08/16/2016 Constitutional No insomnia 08/16/2016 Constitutional No weight loss 08/16/2016 Eyes No eye pain 017 Eyes No photophobia 07/29 Eyes No vision change Eyes No visual disturbance 08/16/2016 Ears/Nose/Throat/Neck No hearing loss 08/16/2016 Ears/Nose/Throat/Neck No nasal discharge 08/16/2016 Ears/Nose/Throat/Neck No sinus congestion 08/16/2016 Ears/Nose/Throat/Neck sore throat 08/16/2016 Cardiovascular No arrhythmia 08/16/2016 Cardiovascular No chest pain/pressure 08/16/2016 Cardiovascular No edema 08/16/2016 Cardiovascular No exercise intolerance 08/16/2016 Cardiovascular No orthopnea 08/16/2016 Cardiovascular No palpitations 08/16/2016 Respiratory No asthma Respiratory cough 2016 Respiratory No dyspnea 0 08/16/2016 Respiratory No pleuritic pain 08/16/2016 Respiratory No productive sputum 08/16/2016 Respiratory No wheezing 08/16/2016 Dermatologic No rash Dermatologic No scar Dermatologic skin lesion 08/16/2016 Neurologic No dizziness 08/16/2016 Neurologic No headache 0 08/16/2016 Neurologic No neck pain 08/16/2016 Neurologic No syncope Psychiatric No anxiety 0 08/16/2016 Psychiatric No depression 08/16/2016 Constitutional No night sweats 06/23/2016 Constitutional No anorexia 06/23/2016 Constitutional No chills 06/23/2016 Constitutional No fever 06/23/2016 Eyes No eye discharge Eyes No eye erythema Eyes No eye tearing 05/30 Eyes No eyelid erythema 06/23/2016 Eyes No eyelid pain 05/30 Ears/Nose/Throat/Neck No eustachian tube dysfunction 06/23/2016 Ears/Nose/Throat/Neck No facial pain 06/23/2016 Ears/Nose/Throat/Neck nasal discharge 06/23/2016 Ears/Nose/Throat/Neck No otalgia 06/23/2016 Ears/Nose/Throat/Neck No otorrhea 06/23/2016 Ears/Nose/Throat/Neck postnasal drip 06/23/2016 Ears/Nose/Throat/Neck sore throat 06/23/2016 Cardiovascular No chest pain/pressure 06/23/2016 Cardiovascular No edema 06/23/2016 Cardiovascular No orthopnea 06/23/2016 Cardiovascular No palpitations 06/23/2016 Cardiovascular No syncope 06/23/2016 Respiratory chest congestion 06/23/2016 Respiratory chest tightness 06/23/2016 Respiratory cough 2016 Respiratory No dyspnea 0 06/23/2016 Respiratory wheezing Gastrointestinal No abdominal pain 06/23/2016 Gastrointestinal No diarrhea 06/23/2016 Gastrointestinal No nausea 06/23/2016 Gastrointestinal No vomiting 06/23/2016 Dermatologic No rash Hematologic/Lymphatic No abnormal bl eeding and bruising 06/23/2016 Hematologic/Lymphatic No lymph node enlargement/mass 06/23/2016 Ears/Nose/Throat/Neck No dizziness 06/23/2016 Respiratory pleuritic pain 06/23/2016 Respiratory productive sputum 06/23/2016 Respiratory No asthma Respiratory cough 2015 Respiratory No dyspnea 1 Respiratory No pleuritic pain 12/18/2015 Respiratory No productive sputum 12/18/2015 Respiratory No wheezing 12/18/2015 Gastrointestinal No hemorrhoids 12/18/2015 Gastrointestinal No hepatitis 12/18/2015 Gastrointestinal No abdominal pain 12/18/2015 Gastrointestinal No constipation 12/18/2015 Gastrointestinal No diarrhea 12/18/2015 Gastrointestinal No gastroesophageal reflu x 12/18/2015 Gastrointestinal No melena 12/18/2015 Gastrointestinal No nausea 12/18/2015 Gastrointestinal No vomiting 12/18/2015 Genitourinary/Nephrology No dysuria 12/18/2015 Genitourinary/Nephrology No nocturia 12/18/2015 Genitourinary/Nephrology No urinary incontinence 12/18/2015 Musculoskeletal No muscle weakness 12/18/2015 Musculoskeletal No myalgias 12/18/2015 Musculoskeletal No stiffness 12/18/2015 Musculoskeletal No swelling 12/18/2015 Dermatologic No rash Dermatologic No scar Neurologic No dizziness 12/18/2015 Neurologic No headache 1 Neurologic No neck pain 12/18/2015 Neurologic No syncope Psychiatric No anxiety 1 Psychiatric No depression 12/18/2015 Endocrine No goiter 11/29 Endocrine No hyperglycemia 12/18/2015 Endocrine No hypoglycemia 12/18/2015 Endocrine No diabetes mellitus type 2 12/18/2015 Endocrine hirsutism 11/29 Cardiovascular No arrhythmia 12/18/2015 Cardiovascular No chest pain/pressure 12/18/2015 Cardiovascular No edema 12/18/2015 Cardiovascular No exercise intolerance 12/18/2015 Cardiovascular No orthopnea 12/18/2015 Cardiovascular No palpitations 12/18/2015 Ears/Nose/Throat/Neck No hearing loss 12/18/2015 Ears/Nose/Throat/Neck No nasal discharge 12/18/2015 Ears/Nose/Throat/Neck No sinus congestion 12/18/2015 Ears/Nose/Throat/Neck No sore throat 12/18/2015 Constitutional No night sweats 12/18/2015 Constitutional No fatigue 12/18/2015 Constitutional No fever 12/18/2015 Constitutional No insomnia 12/18/2015 Constitutional No weight loss 12/18/2015 Respiratory cough 2015 Constitutional No night sweats 12/11/2015 Constitutional No fatigue 12/11/2015 Constitutional No fever 12/11/2015 Constitutional No insomnia 12/11/2015 Constitutional No weight loss 12/11/2015 Constitutional No night sweats 12/08/2015 Constitutional No recent illness 12/08/2015 Constitutional fatigue 1 Constitutional No fever 12/08/2015 Constitutional No insomnia 12/08/2015 Constitutional No weight loss 12/08/2015 Eyes No eye pain 016 Eyes No photophobia 11/28 Eyes No vision change Eyes No visual disturbance 12/08/2015 Ears/Nose/Throat/Neck No hearing loss 12/08/2015 Ears/Nose/Throat/Neck No nasal discharge 12/08/2015 Ears/Nose/Throat/Neck No sinus congestion 12/08/2015 Ears/Nose/Throat/Neck No sore throat 12/08/2015 Cardiovascular No arrhythmia 12/08/2015 Cardiovascular No chest pain/pressure 12/08/2015 Cardiovascular No edema 12/08/2015 Cardiovascular No exercise intolerance 12/08/2015 Cardiovascular No orthopnea 12/08/2015 Cardiovascular No palpitations 12/08/2015 Respiratory cough 2015 Respiratory No dyspnea 1 Respiratory No pleuritic pain 12/08/2015 Respiratory productive sputum 12/08/2015 Respiratory No wheezing 12/08/2015 Respiratory chest congestion 12/08/2015 Respiratory No chest tightness 12/08/2015 Respiratory pneumonia Dermatologic No rash 11/2015 Dermatologic No scar 11/2015 Hematologic/Lymphatic No abnormal ec chymoses 12/08/2015 Hematologic/Lymphatic No petechiae 12/08/2015 Hematologic/Lymphatic No abnormal bl eeding and bruising 12/08/2015 Hematologic/Lymphatic No anemia 12/08/2015 Hematologic/Lymphatic No lymph node enlargement/mass 12/08/2015 Constitutional No night sweats 12/01/2015 Constitutional No recent illness 12/01/2015 Constitutional fatigue 1 Constitutional fever 04/2015 Constitutional No insomnia 12/01/2015 Constitutional No weight loss 12/01/2015 Eyes No eye pain 016 Eyes No photophobia 04/2015 Eyes No vision change Eyes No visual disturbance 12/01/2015 Ears/Nose/Throat/Neck No hearing loss 12/01/2015 Ears/Nose/Throat/Neck No nasal discharge 12/01/2015 Ears/Nose/Throat/Neck No sinus congestion 12/01/2015 Ears/Nose/Throat/Neck No sore throat 12/01/2015 Cardiovascular No arrhythmia 12/01/2015 Cardiovascular No chest pain/pressure 12/01/2015 Cardiovascular No edema 12/01/2015 Cardiovascular No exercise intolerance 12/01/2015 Cardiovascular No orthopnea 12/01/2015 Cardiovascular No palpitations 12/01/2015 Respiratory cough 2015 Respiratory dyspnea 04/2015 Respiratory No pleuritic pain 12/01/2015 Respiratory productive sputum 12/01/2015 Respiratory wheezing 04/2015 Respiratory chest congestion 12/01/2015 Respiratory chest tightness 12/01/2015 Respiratory pneumonia Gastrointestinal No hemorrhoids 12/01/2015 Gastrointestinal No hepatitis 12/01/2015 Gastrointestinal No abdominal pain 12/01/2015 Gastrointestinal No constipation 12/01/2015 Gastrointestinal No diarrhea 12/01/2015 Gastrointestinal No gastroesophageal reflu x 12/01/2015 Gastrointestinal No melena 12/01/2015 Gastrointestinal No nausea 12/01/2015 Gastrointestinal No vomiting 12/01/2015 Dermatologic No rash 04/2015 Dermatologic No scar 04/2015 Hematologic/Lymphatic No abnormal ec chymoses 12/01/2015 Hematologic/Lymphatic No petechiae 12/01/2015 Hematologic/Lymphatic No abnormal bl eeding and bruising 12/01/2015 Hematologic/Lymphatic No anemia 12/01/2015 Hematologic/Lymphatic No lymph node enlargement/mass 12/01/2015 Psychiatric No anxiety 1 Psychiatric No depression 12/01/2015 Physical Exam Exam Name System Name It em Name Status Result Effective Dates Notes Full Exam - General Constitutional general appearance Overall: well nourished 10/31/2018 None Full Exam - General Constitutional general appearance Overall: in no acute distress 10/31/2018 None Full Exam - General Respiratory respiratory effort/rhythm Overall: no retractions 10/31/2018 None Full Exam - General Respiratory respiratory effort/rhythm Overall: normal rate 10/31/2018 None Full Exam - General Respiratory auscultation Diffuse: expiratory wheezes 10/31/2018 None Full Exam - General Respiratory auscultation Diffuse: diminished 10/31/2018 None Full Exam - General Ears/Nose/Throat otoscopic exam Overall: external auditory canals clear 10/31/2018 None Full Exam - General Ears/Nose/Throat otoscopic exam Overall: tympanic membranes clear 10/31/2018 None Full Exam - General Ears/Nose/Throat oral cavity/pharynx/larynx Oropharynx: a normal exam 10/31/2018 None Full Exam - General Cardiovascular auscultation of heart Overall: regular rate 10/31/2018 None Full Exam - General Cardiovascular auscultation of heart Overall: no murmurs 10/31/2018 None Full Exam - General Lymphatic neck nodes Overall: anterior cervical chain elise ign 10/31/2018 None Full Exam - General Lymphatic neck nodes Overall: posterior cervical chain be nign 10/31/2018 None Full Exam - General Neurologic mental status Overall: alert 9 None Full Exam - General Neurologic mental status Overall: oriented 10/31/2018 None Full Exam - General Constitutional general appearance Overall: well nourished 08/08/2018 None Full Exam - General Constitutional general appearance Overall: well developed 08/08/2018 None Full Exam - General Constitutional general appearance Overall: in no acute distress 08/08/2018 None Full Exam - General Neurologic mental status Overall: alert 9 None Full Exam - General Neurologic mental status Overall: oriented 08/08/2018 None Full Exam - General Psychiatric mood and affect Overall: normal mood and affect 08/08/2018 None Full Exam - General Respiratory auscultation Overall: breath sounds clear bilater ally 08/08/2018 None Full Exam - General Cardiovascular auscultation of heart Overall: regular rate 08/08/2018 None Full Exam - General Cardiovascular auscultation of heart Overall: normal heart sounds 08/08/2018 None Full Exam - General Cardiovascular auscultation of heart S4 (atrial gallop): present 08/08/2018 None Full Exam - General Cardiovascular extremities Overall: no clubbing 08/08/2018 None Full Exam - General Cardiovascular extremities Overall: No edema 08/08/2018 None Full Exam - General Cardiovascular extremities Overall: No cyanosis 08/08/2018 None Full Exam - General Constitutional general appearance Overall: well nourished 07/06/2018 None Full Exam - General Constitutional general appearance Overall: well developed 07/06/2018 None Full Exam - General Constitutional general appearance Overall: in no acute distress 07/06/2018 None Full Exam - General Neurologic mental status Overall: alert 9 None Full Exam - General Neurologic mental status Overall: oriented 07/06/2018 None Full Exam - General Psychiatric mood and affect Overall: normal mood and affect 07/06/2018 None Full Exam - General Respiratory auscultation Overall: breath sounds clear bilater ally 07/06/2018 None Full Exam - General Cardiovascular auscultation of heart Overall: regular rate 07/06/2018 None Full Exam - General Cardiovascular auscultation of heart Overall: normal heart sounds 07/06/2018 None Full Exam - General Cardiovascular auscultation of heart S4 (atrial gallop): present 07/06/2018 None Full Exam - General Cardiovascular auscultation of heart Murmur: no murmur 07/06/2018 None Full Exam - General Cardiovascular extremities Overall: no clubbing 07/06/2018 None Full Exam - General Cardiovascular extremities Overall: No edema 07/06/2018 None Full Exam - General Cardiovascular extremities Overall: No cyanosis 07/06/2018 None Full Exam - General Constitutional general appearance Overall: well nourished 06/19/2018 None Full Exam - General Constitutional general appearance Overall: well developed 06/19/2018 None Full Exam - General Constitutional general appearance Overall: in no acute distress 06/19/2018 None Full Exam - General Eyes conjunctiva/eyelids Overall: conjunctiva clear 06/19/2018 None Full Exam - General Eyes conjunctiva/eyelids Overall: cornea clear 06/19/2018 None Full Exam - General Eyes conjunctiva/eyelids Overall: eyelids normal 06/19/2018 None Full Exam - General Eyes pupils and irises Overall: pupils equal, round, reacti ve to light and accomodation 06/19/2018 None Full Exam - General Ears/Nose/Throat otoscopic exam Overall: external auditory canals clear 06/19/2018 None Full Exam - General Ears/Nose/Throat otoscopic exam Overall: tympanic membranes clear 06/19/2018 None Full Exam - General Ears/Nose/Throat oral cavity/pharynx/larynx Overall: oral mucosa clear 06/19/2018 None Full Exam - General Neck inspection of neck Overall: normal size 06/19/2018 None Full Exam - General Neck inspection of neck Overall: normal appearance 06/19/2018 None Full Exam - General Neck thyroid Overall: normal size None Full Exam - General Neck thyroid Overall: normal consistency 06/19/2018 None Full Exam - General Neck thyroid Overall: nontender 06/19 None Full Exam - General Respiratory auscultation Overall: breath sounds clear bilater ally 06/19/2018 None Full Exam - General Respiratory respiratory effort/rhythm Overall: no retractions 06/19/2018 None Full Exam - General Respiratory respiratory effort/rhythm Overall: normal rate 06/19/2018 None Full Exam - General Cardiovascular auscultation of heart Overall: regular rate 06/19/2018 None Full Exam - General Cardiovascular auscultation of heart Overall: normal heart sounds 06/19/2018 None Full Exam - General Cardiovascular auscultation of heart Overall: no murmurs 06/19/2018 None Full Exam - General Cardiovascular extremities Overall: No edema 06/19/2018 None Full Exam - General Cardiovascular extremities Overall: No cyanosis 06/19/2018 None Full Exam - General Lymphatic neck nodes Overall: anterior cervical chain elise ign 06/19/2018 None Full Exam - General Lymphatic neck nodes Overall: posterior cervical chain be nign 06/19/2018 None Full Exam - General Musculoskeletal head and neck Overall: head atraumatic 06/19/2018 None Full Exam - General Musculoskeletal head and neck Overall: cervical spine benign 06/19/2018 None Full Exam - General Musculoskeletal gait and station Overall: normal gait 06/19/2018 None Full Exam - General Musculoskeletal gait and station Overall: normal station 06/19/2018 None Full Exam - General Integument inspection of skin Overall: no rash, lesions 06/19/2018 None Full Exam - General Neurologic gait Overall: no ataxia, no unsteadiness 06/19/2018 None Full Exam - General Neurologic cranial nerves Overall: cranial nerves 1-12 intact 06/19/2018 None Full Exam - General Psychiatric orientation/consciousness Overall: oriented to person, place and time 06/19/2018 None Full Exam - General Psychiatric appearance Overall: well-groomed, good eye cont act 06/19/2018 None Full Exam - General Psychiatric judgment/insight Overall: judgment and insight intact 06/19/2018 None Full Exam - General Constitutional general appearance Overall: well nourished 06/13/2018 None Full Exam - General Constitutional general appearance Overall: well developed 06/13/2018 None Full Exam - General Constitutional general appearance Overall: in no acute distress 06/13/2018 None Full Exam - General Eyes conjunctiva/eyelids Overall: conjunctiva clear 06/13/2018 None Full Exam - General Eyes conjunctiva/eyelids Overall: cornea clear 06/13/2018 None Full Exam - General Eyes conjunctiva/eyelids Overall: eyelids normal 06/13/2018 None Full Exam - General Eyes pupils and irises Overall: pupils equal, round, reacti ve to light and accomodation 06/13/2018 None Full Exam - General Ears/Nose/Throat otoscopic exam Overall: external auditory canals clear 06/13/2018 None Full Exam - General Ears/Nose/Throat otoscopic exam Overall: tympanic membranes clear 06/13/2018 None Full Exam - General Ears/Nose/Throat oral cavity/pharynx/larynx Overall: oral mucosa clear 06/13/2018 None Full Exam - General Neck inspection of neck Overall: normal size 06/13/2018 None Full Exam - General Neck inspection of neck Overall: normal appearance 06/13/2018 None Full Exam - General Respiratory auscultation Overall: breath sounds clear bilater ally 06/13/2018 None Full Exam - General Respiratory respiratory effort/rhythm Overall: no retractions 06/13/2018 None Full Exam - General Respiratory respiratory effort/rhythm Overall: normal rate 06/13/2018 None Full Exam - General Cardiovascular auscultation of heart Overall: regular rate 06/13/2018 None Full Exam - General Cardiovascular auscultation of heart Overall: normal heart sounds 06/13/2018 None Full Exam - General Cardiovascular auscultation of heart Overall: no murmurs 06/13/2018 None Full Exam - General Cardiovascular extremities Overall: No edema 06/13/2018 None Full Exam - General Cardiovascular inspection of carotid pulses Overall: strong, bilaterally equal, no bruits 06/13/2018 None Full Exam - General Lymphatic neck nodes Overall: anterior cervical chain elise ign 06/13/2018 None Full Exam - General Lymphatic neck nodes Overall: posterior cervical chain be nign 06/13/2018 None Full Exam - General Musculoskeletal head and neck Overall: head atraumatic 06/13/2018 None Full Exam - General Musculoskeletal head and neck Overall: cervical spine benign 06/13/2018 None Full Exam - General Musculoskeletal gait and station Overall: normal gait 06/13/2018 None Full Exam - General Musculoskeletal gait and station Overall: normal station 06/13/2018 None Full Exam - General Integument inspection of skin Overall: no rash, lesions 06/13/2018 None Full Exam - General Neurologic mental status Overall: alert 9 None Full Exam - General Neurologic mental status Overall: oriented 06/13/2018 None Full Exam - General Psychiatric orientation/consciousness Overall: oriented to person, place and time 06/13/2018 None Full Exam - General Psychiatric mood and affect Overall: normal mood and affect 06/13/2018 None Full Exam - General Constitutional general appearance Overall: well nourished 04/25/2018 None Full Exam - General Constitutional general appearance Overall: well developed 04/25/2018 None Full Exam - General Constitutional general appearance Overall: in no acute distress 04/25/2018 None Full Exam - General Eyes pupils and irises Overall: pupils equal, round, reacti ve to light and accomodation 04/25/2018 None Full Exam - General Eyes conjunctiva/eyelids Overall: conjunctiva clear 04/25/2018 None Full Exam - General Eyes conjunctiva/eyelids Overall: cornea clear 04/25/2018 None Full Exam - General Eyes conjunctiva/eyelids Overall: eyelids normal 04/25/2018 None Full Exam - General Ears/Nose/Throat otoscopic exam Overall: external auditory canals clear 04/25/2018 None Full Exam - General Ears/Nose/Throat otoscopic exam Overall: tympanic membranes clear 04/25/2018 None Full Exam - General Ears/Nose/Throat oral cavity/pharynx/larynx Posterior Pharynx: clear post nasal drainage 04/25/2018 bright red posterior pharynx; tonsils 2+ Full Exam - General Neck inspection of neck Overall: normal size 04/25/2018 None Full Exam - General Neck inspection of neck Overall: normal appearance 04/25/2018 None Full Exam - General Neck thyroid Overall: normal size None Full Exam - General Neck thyroid Overall: normal consistency 04/25/2018 None Full Exam - General Respiratory respiratory effort/rhythm Overall: no retractions 04/25/2018 None Full Exam - General Respiratory respiratory effort/rhythm Overall: normal rate 04/25/2018 None Full Exam - General Respiratory auscultation Overall: breath sounds clear bilater ally 04/25/2018 None Full Exam - General Cardiovascular auscultation of heart Overall: regular rate 04/25/2018 None Full Exam - General Cardiovascular auscultation of heart Overall: normal heart sounds 04/25/2018 None Full Exam - General Cardiovascular auscultation of heart Overall: no murmurs 04/25/2018 None Full Exam - General Musculoskeletal gait and station Overall: normal gait 04/25/2018 None Full Exam - General Integument inspection of skin Overall: no rash, lesions 04/25/2018 None Full Exam - General Neurologic mental status Overall: alert 9 None Full Exam - General Neurologic mental status Overall: oriented 04/25/2018 None Full Exam - General Psychiatric orientation/consciousness Overall: oriented to person, place and time 04/25/2018 None Full Exam - General Psychiatric judgment/insight Overall: judgment and insight intact 04/25/2018 None Full Exam - General Constitutional general appearance Overall: well nourished 04/14/2018 None Full Exam - General Constitutional general appearance Overall: well developed 04/14/2018 None Full Exam - General Ears/Nose/Throat otoscopic exam Overall: external auditory canals clear 04/14/2018 None Full Exam - General Ears/Nose/Throat otoscopic exam Left tympanic membrane: air- fluid level 04/14/2018 None Full Exam - General Ears/Nose/Throat otoscopic exam Right tympanic membrane: air- fluid level 04/14/2018 None Full Exam - General Ears/Nose/Throat internal nose Turbinates: erythema 04/14/2018 None Full Exam - General Ears/Nose/Throat internal nose Turbinates: hypertrophy 04/14/2018 None Full Exam - General Ears/Nose/Throat internal nose Drainage: cloudy 04/14/2018 None Full Exam - General Ears/Nose/Throat oral cavity/pharynx/larynx Oropharynx: postnasal drainage 04/14/2018 None Full Exam - General Neck inspection of neck Overall: normal size 04/14/2018 None Full Exam - General Neck inspection of neck Overall: no masses 04/14/2018 None Full Exam - General Respiratory auscultation Overall: breath sounds clear bilater ally 04/14/2018 None Full Exam - General Cardiovascular auscultation of heart Overall: regular rate 04/14/2018 None Full Exam - General Cardiovascular auscultation of heart Overall: normal heart sounds 04/14/2018 None Full Exam - General Cardiovascular auscultation of heart Overall: no murmurs 04/14/2018 None Full Exam - General Lymphatic neck nodes Left anterior cervical chain: shotty 04/14/2018 None Full Exam - General Lymphatic neck nodes Left anterior cervical chain: tender 04/14/2018 None Full Exam - General Lymphatic neck nodes Right anterior cervical chain: shott y 04/14/2018 None Full Exam - General Lymphatic neck nodes Right anterior cervical chain: tende r 04/14/2018 None Full Exam - General Neurologic mental status Overall: alert 9 None Full Exam - General Neurologic mental status Overall: oriented 04/14/2018 None Full Exam - General Psychiatric mood and affect Overall: normal mood and affect 04/14/2018 None Full Exam - General Constitutional general appearance Overall: in no acute distress 04/14/2018 None Full Exam - General Constitutional general appearance Overall: well nourished 01/31/2018 None Full Exam - General Constitutional general appearance Overall: well developed 01/31/2018 None Full Exam - General Constitutional general appearance Overall: in no acute distress 01/31/2018 None Full Exam - General Neurologic mental status Overall: alert 8 None Full Exam - General Neurologic mental status Overall: oriented 01/31/2018 None Full Exam - General Psychiatric mood and affect Overall: normal mood and affect 01/31/2018 None Full Exam - General Musculoskeletal right lower extremity Inspection - right lower leg: normal appearance 01/31/2018 None Full Exam - General Musculoskeletal right lower extremity Palpation - right lower leg: tender 01/31/2018 over f ibular head Full Exam - General Constitutional general appearance Overall: well nourished 01/23/2018 None Full Exam - General Constitutional general appearance Overall: in no acute distress 01/23/2018 None Full Exam - General Musculoskeletal right lower extremity ROM - right knee: a normal exam 01/23/2018 None Full Exam - General Musculoskeletal right lower extremity Stability - right knee: a normal exam 01/23/2018 None Full Exam - General Musculoskeletal right lower extremity Muscle Strength/Tone - right knee: a normal exam 01/23/2018 None Full Exam - General Musculoskeletal right lower extremity Palpation - right knee: pitting edema 01/23/2018 1+ to right lower extremity starting on patella Full Exam - General Musculoskeletal right lower extremity Inspection - right knee: swelling 01/23/2018 None Full Exam - General Musculoskeletal right lower extremity Palpation - right lower leg: tender 01/23/2018 on lat eral leg. no redness. Full Exam - General Neurologic mental status Overall: alert 8 None Full Exam - General Neurologic mental status Overall: oriented 01/23/2018 None Full Exam - General Constitutional general appearance Overall: well nourished 11/10/2017 None Full Exam - General Constitutional general appearance Overall: in no acute distress 11/10/2017 None Full Exam - General Cardiovascular auscultation of heart Overall: regular rate 11/10/2017 None Full Exam - General Cardiovascular auscultation of heart Overall: no murmurs 11/10/2017 None Full Exam - General Respiratory respiratory effort/rhythm Overall: no retractions 11/10/2017 None Full Exam - General Respiratory respiratory effort/rhythm Overall: normal rate 11/10/2017 None Full Exam - General Respiratory auscultation Right lower lung field: crackles 11/10/2017 None Full Exam - General Respiratory auscultation Right lower lung field: expiratory w heezes 11/10/2017 None Full Exam - General Respiratory auscultation Diffuse: expiratory wheezes 11/10/2017 None Full Exam - General Respiratory auscultation Right upper lung field: bronchial 11/10/2017 None Full Exam - General Respiratory auscultation Right upper lung field: expiratory w heezes 11/10/2017 None Full Exam - General Ears/Nose/Throat otoscopic exam Overall: external auditory canals clear 11/10/2017 None Full Exam - General Ears/Nose/Throat otoscopic exam Overall: tympanic membranes clear 11/10/2017 None Full Exam - General Ears/Nose/Throat oral cavity/pharynx/larynx Oropharynx: a normal exam 11/10/2017 None Full Exam - General Lymphatic neck nodes Left anterior cervical chain: shotty 11/10/2017 None Full Exam - General Lymphatic neck nodes Left anterior cervical chain: tender 11/10/2017 None Full Exam - General Lymphatic neck nodes Right anterior cervical chain: shott y 11/10/2017 None Full Exam - General Lymphatic neck nodes Right anterior cervical chain: tende r 11/10/2017 None Full Exam - General Neurologic mental status Overall: alert 8 None Full Exam - General Neurologic mental status Overall: oriented 11/10/2017 None Full Exam - General Constitutional general appearance Overall: well nourished 09/22/2017 None Full Exam - General Constitutional general appearance Overall: in no acute distress 09/22/2017 None Full Exam - General Eyes conjunctiva/eyelids Overall: conjunctiva clear 09/22/2017 None Full Exam - General Eyes conjunctiva/eyelids Overall: cornea clear 09/22/2017 None Full Exam - General Eyes conjunctiva/eyelids Overall: eyelids normal 09/22/2017 None Full Exam - General Ears/Nose/Throat external ear Overall: normal appearance 09/22/2017 None Full Exam - General Ears/Nose/Throat external ear Overall: no masses 09/22/2017 None Full Exam - General Ears/Nose/Throat external ear Overall: normal mastoids 09/22/2017 None Full Exam - General Ears/Nose/Throat external nose Overall: benign appearance 09/22/2017 None Full Exam - General Ears/Nose/Throat external nose Overall: non-tender 09/22/2017 None Full Exam - General Ears/Nose/Throat otoscopic exam Overall: external auditory canals clear 09/22/2017 None Full Exam - General Ears/Nose/Throat otoscopic exam Overall: tympanic membranes clear 09/22/2017 None Full Exam - General Ears/Nose/Throat hearing assessment Overall: hearing intact bilaterally 09/22/2017 None Full Exam - General Ears/Nose/Throat internal nose Overall: bilateral nasal cavities clear 09/22/2017 None Full Exam - General Ears/Nose/Throat internal nose Overall: turbinates benign 09/22/2017 None Full Exam - General Ears/Nose/Throat lips/teeth/gingiva Overall: benign lips 09/22/2017 None Full Exam - General Ears/Nose/Throat lips/teeth/gingiva Overall: normal dentition 09/22/2017 None Full Exam - General Ears/Nose/Throat oral cavity/pharynx/larynx Overall: oral mucosa clear 09/22/2017 None Full Exam - General Ears/Nose/Throat oral cavity/pharynx/larynx Overall: tonsils benign 09/22/2017 None Full Exam - General Ears/Nose/Throat oral cavity/pharynx/larynx Overall: base of tongue benign 09/22/2017 None Full Exam - General Neck inspection of neck Overall: normal size 09/22/2017 None Full Exam - General Respiratory percussion Overall: benign percussion 09/22/2017 None Full Exam - General Respiratory auscultation Overall: breath sounds clear bilater ally 09/22/2017 None Full Exam - General Respiratory respiratory effort/rhythm Overall: no retractions 09/22/2017 None Full Exam - General Respiratory respiratory effort/rhythm Overall: normal rate 09/22/2017 None Full Exam - General Cardiovascular auscultation of heart Overall: regular rate 09/22/2017 None Full Exam - General Cardiovascular auscultation of heart Overall: no murmurs 09/22/2017 None Full Exam - General Cardiovascular inspection of carotid pulses Overall: strong, bilaterally equal, no bruits 09/22/2017 None Full Exam - General Cardiovascular palpation of heart Overall: apical impulse location normal 09/22/2017 None Full Exam - General Cardiovascular palpation of heart Overall: no heave/lift 09/22/2017 None Full Exam - General Cardiovascular inspection of abdominal aorta Overall: normal diameter 09/22/2017 None Full Exam - General Cardiovascular inspection of pedal pulses Overall: strong, equal bilaterally 09/22/2017 None Full Exam - General Cardiovascular extremities Overall: no clubbing 09/22/2017 None Full Exam - General Cardiovascular extremities Overall: No edema 09/22/2017 None Full Exam - General Cardiovascular extremities Overall: No cyanosis 09/22/2017 None Full Exam - General Chest/Breast breast and axillae palpation Overall: breasts non- tender 09/22/2017 None Full Exam - General Chest/Breast breast and axillae palpation Overall: no masses 09/22/2017 None Full Exam - General Chest/Breast breast and axillae palpation Overall: axillae non- tender 09/22/2017 None Full Exam - General Chest/Breast breast and axillae palpation Overall: no nipple discharge 09/22/2017 None Full Exam - General Chest/Breast breast/chest inspection Overall: breasts to symmetric and without lesions 09/22/2017 None Full Exam - General Chest/Breast breast/chest inspection Overall: normal chest shape 09/22/2017 None Full Exam - General Abdomen abdominal exam Overall: no tenderness 09/22/2017 None Full Exam - General Abdomen abdominal exam Overall: soft 09/22/2017 None Full Exam - General Abdomen abdominal exam Overall: no masses 09/22/2017 None Full Exam - General Abdomen abdominal exam Overall: normal bowel sounds 09/22/2017 None Full Exam - General Abdomen liver and spleen exam Overall: no hepatosplenomegaly 09/22/2017 None Full Exam - General Abdomen rectal exam Overall: good sphincter tone, no mas ses, no lesions 09/22/2017 None Full Exam - General Abdomen stool sample obtained Overall: normal appearance 09/22/2017 None Full Exam - General Abdomen stool sample obtained Overall: occult blood negative 09/22/2017 None Full Exam - General Genitourinary uterus Overall: normal size 09/22/2017 None Full Exam - General Genitourinary cervix Inspection: normal os 09/22/2017 None Full Exam - General Genitourinary cervix Inspection: no lesions 09/22/2017 None Full Exam - General Genitourinary labia and vagina Overall: normal hair distribution 09/22/2017 None Full Exam - General Genitourinary labia and vagina Overall: no lesions 09/22/2017 None Full Exam - General Genitourinary labia and vagina Labia: no lesions present 09/22/2017 None Full Exam - General Genitourinary labia and vagina Vagina: no lesions present 09/22/2017 None Full Exam - General Genitourinary adnexa/parametria Overall: no tenderness 09/22/2017 None Full Exam - General Genitourinary urethra Overall: no masses 09/22 None Full Exam - General Genitourinary urethra Inspection: non-tender 09/22/2017 None Full Exam - General Genitourinary bladder Overall: no tenderness 09/22/2017 None Full Exam - General Genitourinary bladder Palpation: non-tender 09/22/2017 None Full Exam - General Lymphatic neck nodes Overall: anterior cervical chain elise ign 09/22/2017 None Full Exam - General Lymphatic neck nodes Overall: posterior cervical chain be nign 09/22/2017 None Full Exam - General Musculoskeletal head and neck Overall: head atraumatic 09/22/2017 None Full Exam - General Musculoskeletal digits and nails Overall: no clubbing 09/22/2017 None Full Exam - General Musculoskeletal digits and nails Overall: digits benign 09/22/2017 None Full Exam - General Musculoskeletal right upper extremity Overall: full strength in RUE 09/22/2017 None Full Exam - General Musculoskeletal right upper extremity Overall: normal RUE bulk and tone 09/22/2017 None Full Exam - General Musculoskeletal left upper extremity Overall: full strength in LUE 09/22/2017 None Full Exam - General Musculoskeletal left upper extremity Overall: normal LUE bulk and tone 09/22/2017 None Full Exam - General Musculoskeletal right lower extremity Overall: full strength in RLE 09/22/2017 None Full Exam - General Musculoskeletal right lower extremity Overall: normal RLE bulk and tone 09/22/2017 None Full Exam - General Musculoskeletal left lower extremity Overall: full strength in LLE 09/22/2017 None Full Exam - General Musculoskeletal left lower extremity Overall: normal LLE bulk and tone 09/22/2017 None Full Exam - General Musculoskeletal spine, ribs and pelvis Overall: good posture 09/22/2017 None Full Exam - General Musculoskeletal spine, ribs and pelvis Overall: ribs benign 09/22/2017 None Full Exam - General Musculoskeletal spine, ribs and pelvis Overall: spine benign 09/22/2017 None Full Exam - General Musculoskeletal gait and station Overall: normal gait 09/22/2017 None Full Exam - General Musculoskeletal gait and station Overall: normal station 09/22/2017 None Full Exam - General Integument inspection of skin Overall: no rash, lesions 09/22/2017 None Full Exam - General Neurologic deep tendon reflexes Overall: deep tendon reflexes intact 09/22/2017 None Full Exam - General Neurologic sensation Overall: intact to touch, pin, vibra tion, proprioception 09/22/2017 None Full Exam - General Neurologic mental status Overall: alert 8 None Full Exam - General Neurologic mental status Overall: oriented 09/22/2017 None Full Exam - General Neurologic gait Overall: no ataxia, no unsteadiness 09/22/2017 None Full Exam - General Neurologic coordination Overall: no dysdiadochokinesis, no d ysmetria 09/22/2017 None Full Exam - General Neurologic coordination Overall: no tremors 09/22/2017 None Full Exam - General Neurologic cranial nerves Overall: cranial nerves 1-12 intact 09/22/2017 None Full Exam - General Psychiatric orientation/consciousness Overall: oriented to person, place and time 09/22/2017 None Full Exam - General Psychiatric behavior/psychomotor activity Overall: no tics, normal psychomotor activity 09/22/2017 None Full Exam - General Psychiatric mood and affect Overall: normal mood and affect 09/22/2017 None Full Exam - General Psychiatric appearance Overall: well-groomed, good eye cont act 09/22/2017 None Full Exam - General Psychiatric speech Overall: normal quality, no aphasia 09/22/2017 None Full Exam - General Psychiatric speech Overall: normal quality, quantity, r ate 09/22/2017 None Full Exam - General Psychiatric attention Overall: normal digit recall and num radha repeating 09/22/2017 None Full Exam - General Psychiatric thought Overall: normal form and content 09/22/2017 None Full Exam - General Eyes pupils and irises Overall: pupils equal, round, reacti ve to light and accomodation 09/22/2017 None Full Exam - General Neck thyroid Overall: normal size None Full Exam - General Neck thyroid Overall: normal consistency 09/22/2017 None Full Exam - General Neck thyroid Overall: nontender 09/22 None Full Exam - General Neck thyroid Overall: no mass lesions 09/22/2017 None Full Exam - General Genitourinary cervix Cervical discharge: copious 09/22/2017 None Full Exam - General Genitourinary cervix Cervical discharge: yellow 09/22/2017 None Full Exam - General Constitutional general appearance Overall: well nourished 07/05/2017 None Full Exam - General Constitutional general appearance Overall: in no acute distress 07/05/2017 None Full Exam - General Respiratory respiratory effort/rhythm Overall: no retractions 07/05/2017 None Full Exam - General Respiratory respiratory effort/rhythm Overall: normal rate 07/05/2017 None Full Exam - General Respiratory auscultation Overall: breath sounds clear bilater ally 07/05/2017 None Full Exam - General Cardiovascular auscultation of heart Overall: regular rate 07/05/2017 None Full Exam - General Cardiovascular auscultation of heart Overall: no murmurs 07/05/2017 None Full Exam - General Lymphatic neck nodes Overall: anterior cervical chain elise ign 07/05/2017 None Full Exam - General Lymphatic neck nodes Overall: posterior cervical chain be nign 07/05/2017 None Full Exam - General Ears/Nose/Throat otoscopic exam Overall: external auditory canals clear 07/05/2017 None Full Exam - General Ears/Nose/Throat otoscopic exam Overall: tympanic membranes clear 07/05/2017 None Full Exam - General Ears/Nose/Throat oral cavity/pharynx/larynx Oropharynx: postnasal drainage 07/05/2017 None Full Exam - General Ears/Nose/Throat oral cavity/pharynx/larynx Oropharynx: erythema 07/05/2017 None Full Exam - General Ears/Nose/Throat internal nose Turbinates: erythema 07/05/2017 None Full Exam - General Ears/Nose/Throat internal nose Turbinates: bilateral edema 07/05/2017 None Full Exam - General Ears/Nose/Throat internal nose Drainage: cloudy 07/05/2017 None Full Exam - General Ears/Nose/Throat internal nose Sinus tenderness: left frontal 07/05/2017 None Full Exam - General Ears/Nose/Throat internal nose Sinus tenderness: right frontal 07/05/2017 None Full Exam - General Ears/Nose/Throat internal nose Sinus tenderness: left maxillary 07/05/2017 None Full Exam - General Ears/Nose/Throat internal nose Sinus tenderness: right maxillary 07/05/2017 None Full Exam - General Neurologic mental status Overall: alert 8 None Full Exam - General Neurologic mental status Overall: oriented 07/05/2017 None Full Exam - General Constitutional general appearance Overall: well nourished 03/04/2017 None Full Exam - General Constitutional general appearance Overall: in no acute distress 03/04/2017 None Full Exam - General Respiratory auscultation Right lower lung field: diminished 03/04/2017 None Full Exam - General Respiratory auscultation Diffuse: bronchial 03/04/2017 None Full Exam - General Respiratory respiratory effort/rhythm Overall: no retractions 03/04/2017 None Full Exam - General Respiratory respiratory effort/rhythm Overall: normal rate 03/04/2017 None Full Exam - General Cardiovascular auscultation of heart Overall: regular rate 03/04/2017 None Full Exam - General Cardiovascular auscultation of heart Overall: no murmurs 03/04/2017 None Full Exam - General Ears/Nose/Throat otoscopic exam Overall: external auditory canals clear 03/04/2017 None Full Exam - General Ears/Nose/Throat otoscopic exam Overall: tympanic membranes clear 03/04/2017 None Full Exam - General Ears/Nose/Throat oral cavity/pharynx/larynx Overall: oral mucosa clear 03/04/2017 None Full Exam - General Ears/Nose/Throat oral cavity/pharynx/larynx Overall: tonsils benign 03/04/2017 None Full Exam - General Neurologic mental status Overall: alert 8 None Full Exam - General Neurologic mental status Overall: oriented 03/04/2017 None Full Exam - General Constitutional general appearance Overall: well nourished 02/02/2017 None Full Exam - General Constitutional general appearance Overall: well developed 02/02/2017 None Full Exam - General Constitutional general appearance Overall: in no acute distress 02/02/2017 None Full Exam - General Neurologic mental status Overall: alert 7 None Full Exam - General Neurologic mental status Overall: oriented 02/02/2017 None Full Exam - General Psychiatric mood and affect Overall: normal mood and affect 02/02/2017 None Full Exam - General Respiratory auscultation Overall: breath sounds clear bilater ally 02/02/2017 None Full Exam - General Cardiovascular auscultation of heart Overall: regular rate 02/02/2017 None Full Exam - General Cardiovascular auscultation of heart Overall: normal heart sounds 02/02/2017 None Full Exam - General Cardiovascular auscultation of heart S4 (atrial gallop): present 02/02/2017 None Full Exam - General Cardiovascular extremities Overall: no clubbing 02/02/2017 None Full Exam - General Cardiovascular extremities Overall: No edema 02/02/2017 None Full Exam - General Cardiovascular extremities Overall: No cyanosis 02/02/2017 None Full Exam - General Abdomen abdominal exam Overall: no masses 02/02/2017 None Full Exam - General Abdomen abdominal exam Overall: no tenderness 02/02/2017 None Full Exam - General Abdomen abdominal exam Overall: normal bowel sounds 02/02/2017 None Full Exam - General Abdomen abdominal exam Overall: soft 02/02/2017 None Full Exam - General Constitutional general appearance Overall: well developed 11/29/2016 None Full Exam - General Constitutional general appearance Overall: well nourished 11/29/2016 None Full Exam - General Constitutional general appearance Overall: in no acute distress 11/29/2016 None Full Exam - General Neurologic mental status Overall: alert 7 None Full Exam - General Neurologic mental status Overall: oriented 11/29/2016 None Full Exam - General Integument inspection of skin Location: left foot 11/29/2016 mid-lateral sole with tender area with e vidence of pinpoint perforation Full Exam - General Constitutional general appearance Overall: well nourished 11/16/2016 None Full Exam - General Constitutional general appearance Overall: well developed 11/16/2016 None Full Exam - General Constitutional general appearance Overall: in no acute distress 11/16/2016 None Full Exam - General Neurologic mental status Overall: alert 7 None Full Exam - General Neurologic mental status Overall: oriented 11/16/2016 None Full Exam - General Psychiatric mood and affect Overall: normal mood and affect 11/16/2016 None Full Exam - General Neck inspection of neck Size: thick 11/16/2016 None Full Exam - General Neck inspection of neck Overall: no masses 11/16/2016 None Full Exam - General Respiratory auscultation Overall: breath sounds clear bilater ally 11/16/2016 None Full Exam - General Cardiovascular auscultation of heart Overall: regular rate 11/16/2016 None Full Exam - General Cardiovascular auscultation of heart Overall: normal heart sounds 11/16/2016 None Full Exam - General Cardiovascular auscultation of heart Overall: no murmurs 11/16/2016 None Full Exam - General Constitutional general appearance Overall: well nourished 10/05/2016 None Full Exam - General Constitutional general appearance Overall: well developed 10/05/2016 None Full Exam - General Constitutional general appearance Overall: in no acute distress 10/05/2016 None Full Exam - General Neurologic mental status Overall: alert 7 None Full Exam - General Neurologic mental status Overall: oriented 10/05/2016 None Full Exam - General Psychiatric mood and affect Overall: normal mood and affect 10/05/2016 None Full Exam - General Integument inspection of skin Location: right arm 10/05/2016 axilla with 3mm irrritated skin tag Full Exam - General Integument inspection of skin Location: chest 10/05/2016 right lower below bra line with 2mm irri tated Full Exam - General Constitutional general appearance Overall: well nourished 09/06/2016 None Full Exam - General Constitutional general appearance Overall: well developed 09/06/2016 None Full Exam - General Constitutional general appearance Overall: in no acute distress 09/06/2016 None Full Exam - General Neurologic mental status Overall: alert 7 None Full Exam - General Neurologic mental status Overall: oriented 09/06/2016 None Full Exam - General Psychiatric mood and affect Overall: normal mood and affect 09/06/2016 None Full Exam - General Respiratory auscultation Overall: breath sounds clear bilater ally 09/06/2016 None Full Exam - General Cardiovascular auscultation of heart Overall: regular rate 09/06/2016 None Full Exam - General Cardiovascular auscultation of heart Overall: normal heart sounds 09/06/2016 None Full Exam - General Cardiovascular auscultation of heart Overall: no murmurs 09/06/2016 None Full Exam - General Ears/Nose/Throat otoscopic exam Overall: external auditory canals clear 09/06/2016 None Full Exam - General Ears/Nose/Throat otoscopic exam Overall: tympanic membranes clear 09/06/2016 None Full Exam - General Ears/Nose/Throat internal nose Turbinates: hypertrophy 09/06/2016 None Full Exam - General Ears/Nose/Throat oral cavity/pharynx/larynx Oropharynx: postnasal drainage 09/06/2016 None Full Exam - General Integument inspection of skin Rash/Lesions: papule 09/06/2016 irritated skin tag right axilla, left an terolateral chest with irritated skin tags x2 along bra line Full Exam - General Constitutional general appearance Overall: well nourished 08/16/2016 None Full Exam - General Constitutional general appearance Overall: well developed 08/16/2016 None Full Exam - General Constitutional general appearance Overall: in no acute distress 08/16/2016 None Full Exam - General Respiratory auscultation Overall: breath sounds clear bilater ally 08/16/2016 None Full Exam - General Cardiovascular auscultation of heart Overall: regular rate 08/16/2016 None Full Exam - General Cardiovascular auscultation of heart Overall: normal heart sounds 08/16/2016 None Full Exam - General Lymphatic neck nodes Overall: anterior cervical chain elise ign 08/16/2016 None Full Exam - General Lymphatic neck nodes Overall: posterior cervical chain be nign 08/16/2016 None Full Exam - General Lymphatic other nodes Overall: supraclavicular chain benig n 08/16/2016 None Full Exam - General Integument inspection of skin Location right arm 08/16/2016 skin tag in axilla bleeding/irritated by clothing Full Exam - General Integument inspection of skin Location chest 08/16/2016 Under Rt Breast bleeding/irritated by cl othing Full Exam - General Neurologic mental status Overall: alert 7 None Full Exam - General Neurologic mental status Overall: oriented 08/16/2016 None Full Exam - General Psychiatric mood and affect Overall: normal mood and affect 08/16/2016 None Full Exam - General Constitutional general appearance Overall: well nourished 06/23/2016 None Full Exam - General Constitutional general appearance Overall: well developed 06/23/2016 None Full Exam - General Constitutional general appearance Overall: in no acute distress 06/23/2016 None Full Exam - General Eyes conjunctiva/eyelids Overall: conjunctiva clear 06/23/2016 None Full Exam - General Eyes conjunctiva/eyelids Overall: eyelids normal 06/23/2016 None Full Exam - General Eyes pupils and irises Overall: pupils equal, round, reacti ve to light and accomodation 06/23/2016 None Full Exam - General Ears/Nose/Throat external ear Overall: normal appearance 06/23/2016 None Full Exam - General Ears/Nose/Throat external nose Overall: benign appearance 06/23/2016 None Full Exam - General Ears/Nose/Throat otoscopic exam Overall: external auditory canals clear 06/23/2016 None Full Exam - General Ears/Nose/Throat otoscopic exam Overall: tympanic membranes clear 06/23/2016 None Full Exam - General Ears/Nose/Throat internal nose Overall: no sinus tenderness 06/23/2016 None Full Exam - General Ears/Nose/Throat internal nose Overall: no drainage 06/23/2016 None Full Exam - General Ears/Nose/Throat lips/teeth/gingiva Overall: benign lips 06/23/2016 None Full Exam - General Ears/Nose/Throat oral cavity/pharynx/larynx Oral mucosa: a normal exam 06/23/2016 None Full Exam - General Respiratory auscultation Overall: breath sounds clear bilater ally 06/23/2016 None Full Exam - General Respiratory respiratory effort/rhythm Overall: no retractions 06/23/2016 None Full Exam - General Respiratory respiratory effort/rhythm Overall: normal rate 06/23/2016 None Full Exam - General Cardiovascular auscultation of heart Overall: regular rate 06/23/2016 None Full Exam - General Cardiovascular auscultation of heart Overall: normal heart sounds 06/23/2016 None Full Exam - General Lymphatic neck nodes Overall: anterior cervical chain elise ign 06/23/2016 None Full Exam - General Lymphatic neck nodes Overall: posterior cervical chain be nign 06/23/2016 None Full Exam - General Integument inspection of skin Overall: no rash, lesions 06/23/2016 None Full Exam - General Psychiatric mood and affect Overall: normal mood and affect 06/23/2016 None Full Exam - General Ears/Nose/Throat internal nose Left nasal cavity: mucosal edema 06/23/2016 None Full Exam - General Ears/Nose/Throat internal nose Right nasal cavity: mucosal edema 06/23/2016 None Full Exam - General Ears/Nose/Throat oral cavity/pharynx/larynx Oropharynx: erythema 06/23/2016 None Full Exam - General Constitutional general appearance Overall: well nourished 12/18/2015 None Full Exam - General Constitutional general appearance Overall: well developed 12/18/2015 None Full Exam - General Constitutional general appearance Overall: in no acute distress 12/18/2015 None Full Exam - General Neurologic mental status Overall: alert 6 None Full Exam - General Neurologic mental status Overall: oriented 12/18/2015 None Full Exam - General Psychiatric mood and affect Overall: normal mood and affect 12/18/2015 None Full Exam - General Respiratory auscultation Overall: breath sounds clear bilater ally 12/18/2015 None Full Exam - General Cardiovascular auscultation of heart Overall: regular rate 12/18/2015 None Full Exam - General Cardiovascular auscultation of heart Overall: normal heart sounds 12/18/2015 None Full Exam - General Cardiovascular extremities Overall: no clubbing 12/18/2015 None Full Exam - General Cardiovascular extremities Overall: No edema 12/18/2015 None Full Exam - General Cardiovascular extremities Overall: No cyanosis 12/18/2015 None Full Exam - General Constitutional general appearance Overall: well nourished 12/11/2015 None Full Exam - General Constitutional general appearance Overall: well developed 12/11/2015 None Full Exam - General Constitutional general appearance Evidence of Distress: in acute distress 12/11/2015 due to cough Full Exam - General Respiratory auscultation Overall: breath sounds clear bilater ally 12/11/2015 None Full Exam - General Respiratory auscultation Basilar: diminished 12/11/2015 None Full Exam - General Cardiovascular auscultation of heart Overall: regular rate 12/11/2015 None Full Exam - General Cardiovascular auscultation of heart Overall: normal heart sounds 12/11/2015 None Full Exam - General Cardiovascular auscultation of heart Overall: no murmurs 12/11/2015 None Full Exam - General Neurologic mental status Overall: alert 6 None Full Exam - General Neurologic mental status Overall: oriented 12/11/2015 None Full Exam - General Psychiatric mood and affect Overall: normal mood and affect 12/11/2015 None Full Exam - General Constitutional general appearance Overall: well nourished 12/08/2015 None Full Exam - General Constitutional general appearance Overall: well developed 12/08/2015 None Full Exam - General Constitutional general appearance Overall: in no acute distress 12/08/2015 None Full Exam - General Eyes conjunctiva/eyelids Overall: conjunctiva clear 12/08/2015 None Full Exam - General Eyes conjunctiva/eyelids Overall: eyelids normal 12/08/2015 None Full Exam - General Ears/Nose/Throat external ear Overall: normal appearance 12/08/2015 None Full Exam - General Ears/Nose/Throat external nose Overall: benign appearance 12/08/2015 None Full Exam - General Ears/Nose/Throat lips/teeth/gingiva Overall: benign lips 12/08/2015 None Full Exam - General Ears/Nose/Throat lips/teeth/gingiva Overall: normal dentition 12/08/2015 None Full Exam - General Ears/Nose/Throat oral cavity/pharynx/larynx Overall: oral mucosa clear 12/08/2015 None Full Exam - General Ears/Nose/Throat oral cavity/pharynx/larynx Overall: oropharyngeal mucosa clear 12/08/2015 None Full Exam - General Respiratory auscultation Diffuse: rhonchi 12/08/2015 faint Full Exam - General Respiratory respiratory effort/rhythm Overall: no retractions 12/08/2015 None Full Exam - General Respiratory respiratory effort/rhythm Overall: normal rate 12/08/2015 None Full Exam - General Cardiovascular auscultation of heart Overall: regular rate 12/08/2015 None Full Exam - General Cardiovascular auscultation of heart Overall: normal heart sounds 12/08/2015 None Full Exam - General Lymphatic neck nodes Overall: anterior cervical chain elise ign 12/08/2015 None Full Exam - General Lymphatic neck nodes Overall: posterior cervical chain be nign 12/08/2015 None Full Exam - General Integument inspection of skin Overall: no rash, lesions 12/08/2015 None Full Exam - General Constitutional general appearance Overall: well nourished 12/01/2015 None Full Exam - General Constitutional general appearance Overall: well developed 12/01/2015 None Full Exam - General Constitutional general appearance Overall: in no acute distress 12/01/2015 None Full Exam - General Eyes conjunctiva/eyelids Overall: conjunctiva clear 12/01/2015 None Full Exam - General Eyes conjunctiva/eyelids Overall: eyelids normal 12/01/2015 None Full Exam - General Ears/Nose/Throat external ear Overall: normal appearance 12/01/2015 None Full Exam - General Ears/Nose/Throat external nose Overall: benign appearance 12/01/2015 None Full Exam - General Ears/Nose/Throat lips/teeth/gingiva Overall: benign lips 12/01/2015 None Full Exam - General Ears/Nose/Throat lips/teeth/gingiva Overall: normal dentition 12/01/2015 None Full Exam - General Ears/Nose/Throat oral cavity/pharynx/larynx Overall: oral mucosa clear 12/01/2015 None Full Exam - General Ears/Nose/Throat oral cavity/pharynx/larynx Overall: oropharyngeal mucosa clear 12/01/2015 None Full Exam - General Respiratory auscultation Diffuse: inspiratory wheezes 12/01/2015 None Full Exam - General Respiratory auscultation Diffuse: expiratory wheezes 12/01/2015 None Full Exam - General Respiratory auscultation Diffuse: rhonchi 12/01/2015 None Full Exam - General Respiratory respiratory effort/rhythm Overall: no retractions 12/01/2015 None Full Exam - General Respiratory respiratory effort/rhythm Overall: normal rate 12/01/2015 None Full Exam - General Cardiovascular auscultation of heart Overall: regular rate 12/01/2015 None Full Exam - General Cardiovascular auscultation of heart Overall: normal heart sounds 12/01/2015 None Full Exam - General Lymphatic neck nodes Overall: anterior cervical chain elise ign 12/01/2015 None Full Exam - General Lymphatic neck nodes Overall: posterior cervical chain be nign 12/01/2015 None Full Exam - General Integument inspection of skin Overall: no rash, lesions 12/01/2015 None Procedures Procedure Codes Date ROUTINE VENIPUNCTURE CPT-4: 26647 06/19/2018 COMPLETE CBC W/AUTO DIFF WBC CPT-4: 80848 06/19/2018 COMPREHEN METABOLIC PANEL CPT-4: 80498 06/19/2018 A1C HPLC CPT-4: 27383 06/19/2018 ASSAY THYROID STIM H ORMONE CPT-4: 65463 06/19/2018 URINALYSIS NONAUTO W /O SCOPE CPT-4: 53053 06/19/2018 ACUTE HEPATITIS PANEL CPT-4: 39136 06/19/2018 INFLUENZA ASSAY W/OPTIC CPT-4: 91222 04/26/2018 STREP A ASSAY W/OPTIC CPT-4: 36245 04/25/2018 THROAT CULTURE CPT-4: 94512 04/25/2018 CEFTRIAXONE SODIUM I NJECTION CPT-4: J0696 11/10/2017 DEXAMETHASONE SODIUM PHOS CPT-4: J1100 11/10/2017 THER/PROPH/DIAG INJ SC/IM CPT-4: 27891 11/10/2017 TRIAMCINOLONE ACET I NJ NOS CPT-4: J3301 11/10/2017 OCCULT BLOOD FECES CPT- 4: 53217 09/22/2017 SURESWAB(R), BACTERI AL VAGINOSIS/VAGINITIS CPT-4: 18826 09/22/2017 CULTURE, GENITAL CPT-4: 23690 09/22/2017 TDAP VACCINE 7 YRS/> IM CPT-4: 23090 11/30/2016 IMMUNIZATION ADMIN CPT- 4: 47200 11/30/2016 REMOVAL OF FOOT FORE IGN BODY CPT-4: 41601 11/29/2016 REMOVAL OF SKIN TAGS <W/15 CPT-4: 83011 10/05/2016 CULTURE, THROAT CPT-4: 81628 08/16/2016 PNEUMOCOCCAL VACC 13 AYSHA IM CPT-4: 67952 03/09/2016 IMMUNIZATION ADMIN CPT- 4: 56272 03/09/2016 THER/PROPH/DIAG INJ SC/IM CPT-4: 77382 12/11/2015 TRIAMCINOLONE ACET I NJ NOS CPT-4: J3301 12/11/2015 DEXAMETHASONE SODIUM PHOS CPT-4: J1100 12/11/2015 Vital Signs Date Vital 10/31/2018 Blood Pressure 1: 130/72 Code: 8480-6 Heart Rate 1: 81 bpm SpO2: 98% Temperature: 36.9 (C ) / 98.5 (F) Weight: 221 lbs 08/08/2018 Blood Pressure 1: 122/78 Code: 8480-6 Heart Rate 1: 80 bpm Respiratory Rate: 20 bpm SpO2: 97% Temperature: 36.9 (C ) / 98.4 (F) Weight: 214 lbs 07/06/2018 Blood Pressure 1: 126/84 Code: 8480-6 BMI: 39.9 Code: 83973-3 Heart Rate 1: 80 bpm Height: 5'2" Respiratory Rate: 20 bpm SpO2: 98% Temperature: 37.2 (C ) / 98.9 (F) Weight: 218 lbs 06/19/2018 Blood Pressure 1: 165/101 Code: 8480-6 Blood Pressure 2: 160/99 Code: 8480-6 Heart Rate 1: 63 bpm SpO2: 98% Temperature: 37.1 (C) / 98.8 (F) Weight: 220 lbs 06/13/2018 Blood Pressure 1: 154/100 Code: 8480-6 Heart Rate 1: 68 bpm Respiratory Rate: 18 bpm SpO2: 97% Temperature: 36.9 (C ) / 98.5 (F) Weight: 218 lbs 04/25/2018 Blood Pressure 1: 130/90 Code: 8480-6 Heart Rate 1: 80 bpm Respiratory Rate: 20 bpm SpO2: 96% Temperature: 36.4 (C ) / 97.5 (F) Weight: 222 lbs 04/14/2018 Blood Pressure 1: 126/82 Code: 8480-6 BMI: 40.6 Code: 89929-0 Heart Rate 1: 72 bpm Height: 5'2" SpO2: 96% Temperature: 37.0 (C ) / 98.6 (F) Weight: 222 lbs 01/31/2018 Blood Pressure 1: 132/78 Code: 8480-6 Heart Rate 1: 80 bpm Respiratory Rate: 20 bpm Temperature: 36.9 (C) / 98.4 (F) 01/23/2018 Blood Pressure 1: 130/82 Code: 8480-6 Heart Rate 1: 68 bpm Respiratory Rate: 20 bpm SpO2: 97% Temperature: 36.7 (C ) / 98.1 (F) Weight: 229 lbs 11/10/2017 Blood Pressure 1: 124/68 Code: 8480-6 BMI: 41.7 Code: 82097-5 Heart Rate 1: 66 bpm Height: 5'2" Respiratory Rate: 20 bpm SpO2: 98% Temperature: 36.2 (C ) / 97.2 (F) Weight: 228 lbs 09/22/2017 Blood Pressure 1: 142/80 Code: 8480-6 BMI: 41.3 Code: 76786-6 Heart Rate 1: 60 bpm Height: 5'2" Respiratory Rate: 20 bpm SpO2: 98% Temperature: 36.3 (C ) / 97.3 (F) Weight: 226 lbs 07/05/2017 Blood Pressure 1: 129/82 Code: 8480-6 BMI: 42.3 Code: 47521-2 Heart Rate 1: 60 bpm Height: 5'2" SpO2: 97% Temperature: 36.4 (C ) / 97.6 (F) Weight: 231 lbs 03/04/2017 Blood Pressure 1: 142/80 Code: 8480-6 BMI: 42.4 Code: 51204-8 Heart Rate 1: 74 bpm Height: 5'2" Respiratory Rate: 24 bpm SpO2: 97% Temperature: 36.4 (C ) / 97.6 (F) Weight: 232 lbs 02/02/2017 Blood Pressure 1: 146/82 Code: 8480-6 BMI: 42.4 Code: 51083-4 Heart Rate 1: 84 bpm Height: 5'2" Respiratory Rate: 20 bpm SpO2: 98% Temperature: 36.6 (C ) / 97.9 (F) Weight: 232 lbs 11/29/2016 Blood Pressure 1: 126/78 Code: 8480-6 Heart Rate 1: 76 bpm Height: 5'2" Respiratory Rate: 20 bpm SpO2: 96% Temperature: 36.9 (C ) / 98.4 (F) 11/16/2016 Blood Pressure 1: 136/94 Code: 8480-6 BMI: 42.6 Code: 45954-5 Heart Rate 1: 68 bpm Height: 5'2" Respiratory Rate: 20 bpm SpO2: 96% Temperature: 36.9 (C ) / 98.4 (F) Weight: 233 lbs 10/05/2016 Blood Pressure 1: 112/78 Code: 8480-6 BMI: 41.5 Code: 00850-9 Heart Rate 1: 80 bpm Height: 5'2" Respiratory Rate: 20 bpm SpO2: 97% Temperature: 36.8 (C ) / 98.2 (F) Weight: 227 lbs 09/06/2016 Blood Pressure 1: 126/82 Code: 8480-6 BMI: 42.4 Code: 70105-5 Heart Rate 1: 64 bpm Height: 5'2" Respiratory Rate: 20 bpm SpO2: 98% Temperature: 37.0 (C ) / 98.6 (F) Weight: 232 lbs 08/16/2016 Blood Pressure 1: 136/82 Code: 8480-6 BMI: 42.1 Code: 83747-1 Heart Rate 1: 72 bpm Height: 5'2" Respiratory Rate: 20 bpm SpO2: 98% Temperature: 36.6 (C ) / 97.9 (F) Weight: 230 lbs 06/23/2016 Blood Pressure 1: 118/76 Code: 8480-6 Heart Rate 1: 82 bpm Height: Respiratory Rate: 24 bpm SpO2: 96% Temperature: 36.2 (C ) / 97.2 (F) Weight: 12/18/2015 Blood Pressure 1: 116/82 Code: 8480-6 Heart Rate 1: 68 bpm Height: 5'2" Respiratory Rate: 20 bpm SpO2: 97% Temperature: 36.8 (C ) / 98.2 (F) Weight: 12/11/2015 Blood Pressure 1: 144/80 Code: 8480-6 BMI: 40.4 Code: 75174-2 Heart Rate 1: 92 bpm Height: 5'2" Respiratory Rate: 20 bpm SpO2: 95% Temperature: 36.8 (C ) / 98.2 (F) Weight: 221 lbs 12/08/2015 Blood Pressure 1: 124/78 Code: 8480-6 Heart Rate 1: 108 bpm Height: 5'2" Respiratory Rate: 22 bpm SpO2: 95% Temperature: 36.2 (C ) / 97.2 (F) Weight: 12/01/2015 Blood Pressure 1: 124/78 Code: 8480-6 BMI: 40.4 Code: 35129-3 Heart Rate 1: 92 bpm Height: 5'2" Respiratory Rate: 24 bpm SpO2: 93% Temperature: 35.6 (C ) / 96.0 (F) Weight: 221 lbs Functional Status No Functional Status data History of Present Illness Symptom Name Status Resu lt Effective Date Notes Quality acute 10/31/2018 None Onset of Symptom 5 day s ago 10/31/2018 None Quality acute 10/31/2018 None Onset and Resolution s udden in onset 10/31/2018 None Onset of Symptom 5 day s ago 10/31/2018 None Severity moderate 10/31/2018 patient was on ozempic and tolerating it ok but since changing insurance, it now costs her $400 a month even with coupon card. patient had an episode last month where she became very nauseated after inj ecting the ozempic. patient then found that she had received 2 doses of the ozempic at one time due to a default from the pen. patient had accidentally injected 2-3 doses at one time even when she had set it correctly. patient didn't have any issues after that one time but is no longer able to afford the medication. Quality chronic 08/08/2018 None Glucose monitoring nev er checks. 08/08/2018 Patient states her [employer] company never sent her glucometer supplies Quality chronic 08/08/2018 None Quality stable 08/08/2018 None Quality chronic. 07/06/2018 Patient is having problems with getting glucose meter from [employer] Quality chronic 07/06/2018 None Quality improving 07/06/2018 Patient said home reading 130-150's/80-9 0's Onset of Symptom 2 day s ago 06/13/2018 None Onset of Symptom 4 day s ago 04/25/2018 None Onset of Symptom 4 day s ago 04/25/2018 highest was 100.0 Onset of Symptom 3 day s ago 04/14/2018 None Quality acute 04/14/2018 None Onset of Symptom 3 day s ago 04/14/2018 None Onset of Symptom 3 day s ago 04/14/2018 None Onset of Symptom 3 day s ago 04/14/2018 None Location on both hands. 04/14/2018 Left hand does seem to be worse Quality numbness 04/14/2018 None Quality electrical 04/14/2018 None Quality worsening 04/14/2018 None Location on both sides 04/14/2018 None Quality acute 04/14/2018 None Quality pressure 04/14/2018 None Location diffusely 04/14/2018 None Quality acute 04/14/2018 None pain, limb Location on t he right arm 01/31/2018 None pain, limb Onset and Resolution ongoing. 01/31/2018 Patient has finished medr ol pack and pennsaid topical didn't help pain, limb Quality sharp 01/31/2018 None pain, limb Quality burni ng 01/31/2018 None pain, limb Quality const ant 01/31/2018 None lower leg pain Onset of Symptom 3-4 weeks ago 01/23/2018 None lower leg pain Location on the right 01/23/2018 None lower leg pain Quality b urning sensation 01/23/2018 None lower leg pain Quality i ntermittent 01/23/2018 None lower leg pain Onset and Resolution ongoing 01/23/2018 None lower leg pain Frequency of Episodes increasing 01/23/2018 None cough Location in the th roat 11/10/2017 None cough Quality acute 11/10/2017 None cough Quality hacking 11/10/2017 None cough Quality productive 11/10/2017 None cough Onset and Resolution ongoing 11/10/2017 None wheezing Location diffus merissa 11/10/2017 None wheezing Quality acute 11/10/2017 None wheezing Quality expirat ory only 11/10/2017 None wheezing Onset and Resolution ongoing 11/10/2017 None wheezing Onset of Symptom 1 week ago 11/10/2017 None chest congestion Quality acute 11/10/2017 None chest congestion Quality painful 11/10/2017 None chest congestion Quality thick secretions 11/10/2017 None chest congestion Quality worsening 11/10/2017 None chest congestion Onset and Resolution ongoing 11/10/2017 None sinus congestion Quality acute 11/10/2017 None sinus congestion Quality fullness 11/10/2017 None sinus congestion Quality pain 11/10/2017 None sinus congestion Quality pressure 11/10/2017 None sinus congestion Quality worsening 11/10/2017 None well woman exam (40-65 years) Pap Smear last normal performed 2 years ago 09/22/2017 None well woman exam (40-65 years) Menstr ual History last menstrual period 09-02-2017 None anxiety Quality acute 09/22/2017 None anxiety Quality panic at tacks 09/22/2017 None anxiety Onset and Resolution ongoing 09/22/2017 None anxiety Onset of Symptom during adulthood 09/22/2017 None well woman exam (40-65 years) Menstr ual History regular menses 09/22/2017 None well woman exam (40-65 years) Menstr ual History normal flow 09/22/2017 N one well woman exam (40-65 years) Lifestyle no history of physical abuse 09/22/2017 None well woman exam (40-65 years) Lifestyle no history of sexual abuse 09/22/2017 None well woman exam (40-65 years) Lifestyle no history of verbal abuse 09/22/2017 None well woman exam (40-65 years) Lifestyle regular seatbelt use 09/22/2017 None well woman exam (40-65 years) Lifestyle family supportive of relationship 09/22/2017 None well woman exam (40-65 years) Lifestyle satisfactory work experience 09/22/2017 None well woman exam (40-65 years) Lifestyle normal sleep patterns 09/22/2017 None well woman exam (40-65 years) Lifestyle normal amount of stress 09/22/2017 None well woman exam (40-65 years) Lifestyle satisfactory marriage/partner relationship 09/22/2017 None well woman exam (40-65 years) Nutrit ion and Exercise balanced nutrition 09/22/2017 None well woman exam (40-65 years) Nutrit ion and Exercise regular diet 09/22/2017 None well woman exam (40-65 years) Nutrit ion and Exercise minimal exercise 09/22/2017 None well woman exam (40-65 years) Obstet rical History 4 total pregnancies 09/22/2017 None well woman exam (40-65 years) Obstet rical History 3 living children 09/22/2017 None well woman exam (40-65 years) Cardio vascular Risk Factors hypertension 09/22/2017 grandmother well woman exam (40-65 years) Cardio vascular Risk Factors obesity 09/22/2017 None well woman exam (40-65 years) Cardio vascular Risk Factors diabetes mellitus 09/22/2017 father and grandfather well woman exam (40-65 years) Cardio vascular Risk Factors lifestyle 09/22/2017 Non e well woman exam (40-65 years) Health Guidance self-breast exam 09/22/2017 None well woman exam (40-65 years) Health Guidance baseline mammogram 09/22/2017 None well woman exam (40-65 years) Health Guidance HIV precautions 09/22/2017 None well woman exam (40-65 years) Health Guidance STD precautions 09/22/2017 None well woman exam (40-65 years) Health Guidance prevention 09/22/2017 None well woman exam (40-65 years) Health Guidance control options 09/22/2017 None well woman exam (40-65 years) Health Guidance preconception counseling 09/22/2017 None well woman exam (40-65 years) Health Guidance tobacco, drugs and alcohol avoidance 09/22/2017 None well woman exam (40-65 years) Health Guidance regular exercise 09/22/2017 None well woman exam (40-65 years) Health Guidance safety belt use 09/22/2017 None well woman exam (40-65 years) Health Guidance helmet use 09/22/2017 No ne well woman exam (40-65 years) Health Guidance hearing loss prevention 09/22/2017 None well woman exam (40-65 years) Health Guidance limiting UV/sun exposure 09/22/2017 None well woman exam (40-65 years) Health Guidance suicide prevention 09/22/2017 None well woman exam (40-65 years) Health Guidance depression symptoms 09/22/2017 None well woman exam (40-65 years) Health Guidance fecal occult blood testing 09/22/2017 None well woman exam (40-65 years) Health Guidance fasting glucose every 3 years 09/22/2017 None well woman exam (40-65 years) Sexual Activity is sexually active 09/22/2017 None well woman exam (40-65 years) Sexual Activity experiences sexual satisfaction 09/22/2017 None well woman exam (40-65 years) Sexual Activity is monogamous 09/22/2017 None well woman exam (40-65 years) Nutrit ion and Exercise overweight 09/22/2017 No ne well woman exam (40-65 years) Cardio vascular Risk Factors family history of cardiovascular disease 09/22/2017 grandfather with stroke. mother with [place]. well woman exam (40-65 years) Contro l none 09/22/2017 None cough Location in the th roat 03/04/2017 None cough Quality acute 03/04/2017 None cough Quality dry 03/04/2017 None cough Quality hacking 03/04/2017 None cough Onset and Resolution ongoing 03/04/2017 None cough Onset of Symptom 2 -3 days ago 03/04/2017 None chest tightness Location diffusely 03/04/2017 None chest tightness Quality acute 03/04/2017 None chest tightness Quality worsening 03/04/2017 None chest tightness Onset and Resolution ongoing 03/04/2017 None wheezing Location diffus merissa 03/04/2017 None wheezing Quality acute 03/04/2017 None wheezing Quality expirat ory only 03/04/2017 None wheezing Quality worseni ng 03/04/2017 None wheezing Onset and Resolution ongoing 03/04/2017 None hyperglycemia Quality gl ucose intolerance 02/02/[address] able 02/02/2017 Current A1c is 6.1 Elevated Liver [facility] Labs ALT; 230 02/02/2017 None Elevated [facility] AST; 124 02/02/2017 None hypokalemia Quality health 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 02/02/2017 Current potassium level i s 4.1 foot pain Location on th e left 11/29/2016 None foot pain Quality foreig n body sensation. 11/29/2016 Patient stepped on glass on Tuesday at home and has been unable to get it out cough Quality dry 11/16/2016 None cough Quality hacking 11/16/2016 None sore throat Quality dull 11/16/2016 None sore throat Quality scra tchy 11/16/2016 None sore throat Onset and Resolution ongoing. 11/16/2016 ENT didn't really find an y significant allergies so recommended possible pulmonology eval. dysphagia Location in th e throat 11/16/2016 None dysphagia Quality scratc hy 11/16/2016 None dysphagia Quality choking 11/16/2016 None dysphagia Onset and Resolution ongoing 11/16/2016 Concerns of thyroid probl ems. Had normal TSH/Free T4 about 3 months ago foot pain Location on th e left 11/16/2016 None foot pain Location on th e right 11/16/2016 None foot pain Quality aching 11/16/2016 None foot pain Quality dull p ain 11/16/2016 None acrochordon (skin tags) Location in the right axilla 10/05/2016 gets irritated on clothes and catches/cuts with shaving acrochordon (skin tags) Quality irritated 10/05/2016 None acrochordon (skin tags) Location on the trunk 10/05/2016 gets irritated on bra anne-marie e and is tender acrochordon (skin tags) Onset and Re solution ongoing 10/05/2016 None cough Location in the th roat 09/06/2016 None cough Quality improving 09/06/2016 None cough Quality hacking 09/06/2016 None Elevated [facility] ALT; 212 09/06/2016 None Elevated [facility] AST; 119 09/06/2016 None acrochordon (skin tags) Location on the neck 09/06/2016 None acrochordon (skin tags) Quality chronic 09/06/2016 None cough Onset and Resolution ongoing 09/06/2016 1 to 2 coughing episodes per day cough Quality hacking 08/16/2016 None cough Onset and Resolution ongoing 08/16/2016 None cough Quality recurrent 08/16/2016 Patient has been treated with zithromax, doxycycline and medrol pack sore throat Quality cons tant 08/16/2016 None sore throat Quality recu rrent 08/16/2016 None sore throat Onset and Resolution ongoing 08/16/2016 None sore throat Location on the left 08/16/2016 None sore throat Quality sharp 08/16/2016 None cough Location in the roat 06/23/2016 None cough Quality acute 06/23/2016 None cough Quality dry 06/23/2016 None cough Quality hacking 06/23/2016 None cough Onset and Resolution sudden in onset 06/23/2016 None cough Onset of Symptom 3 -5 days ago 06/23/2016 None sinus congestion Quality acute 06/23/2016 None sinus congestion Quality fullness 06/23/2016 None sinus congestion Quality pain 06/23/2016 None sinus congestion Quality pressure 06/23/2016 None sinus congestion Quality worsening 06/23/2016 None sinus congestion Location on both sides 06/23/2016 None sinus congestion Onset of Symptom 3-5 days ago 06/23/2016 None chest congestion Quality acute 06/23/2016 None chest congestion Quality intermittent 06/23/2016 None chest congestion Quality painful 06/23/2016 None chest congestion Quality thick secretions 06/23/2016 None chest congestion Quality worsening 06/23/2016 None chest congestion Onset and Resolution sudden in onset 06/23/2016 None chest congestion Onset of Symptom 3-5 days ago 06/23/2016 None chest tightness Location diffusely 06/23/2016 None chest tightness Quality acute 06/23/2016 None chest tightness Quality pleuritic 06/23/2016 None chest tightness Onset and Resolution sudden in onset 06/23/2016 None chest tightness Onset of Symptom 3-5 days ago 06/23/2016 None postnasal drip Quality a cute 06/23/2016 None postnasal drip Quality i ntermittent 06/23/2016 None postnasal drip Quality p urulent 06/23/2016 None postnasal drip Quality t hick 06/23/2016 None postnasal drip Onset and Resolution sudden in onset 06/23/2016 None postnasal drip Onset of Symptom 3-5 days ago 06/23/2016 None cough Quality interrupts sleep 06/23/2016 None cough Quality productive 06/23/2016 None cough Onset and Resolution ongoing 06/23/2016 None wheezing Location diffus merissa 06/23/2016 None wheezing Quality acute 06/23/2016 None wheezing Quality expirat ory only 06/23/2016 None wheezing Onset of Symptom _ days ago 06/23/2016 None cough Quality improving 12/18/2015 Patient has one dose left of Breo inhale r broncholiths Location on both sides 12/18/2015 None broncholiths Quality imp roving 12/18/2015 None pneumonia Initial treatment medication 12/11/2015 None pneumonia Onset and Resolution unchanged 12/11/2015 None cough Location in the lesa ng 12/11/2015 None cough Quality hacking 12/11/2015 None cough Onset and Resolution ongoing 12/11/2015 None chest congestion Quality painful 12/11/2015 None chest congestion Quality thick secretions 12/11/2015 None chest congestion Onset and Resolution ongoing 12/11/2015 Still taking breathing treatments and mucines pneumonia Initial treatment medication 12/08/2015 None pneumonia Onset and Resolution acute 12/08/2015 None pneumonia Onset and Resolution improving 12/08/2015 None shortness of breath Quality acute 12/08/2015 None shortness of breath Quality fatigued respiratory muscles 12/08/2015 None shortness of breath Quality improving 12/08/2015 None shortness of breath Onset and Resolution ongoing 12/08/2015 None cough Location in the th roat 12/01/2015 None cough Quality acute 12/01/2015 None cough Quality hacking 12/01/2015 None cough Onset and Resolution sudden in onset 12/01/2015 None cough Quality interrupts sleep 12/01/2015 None cough Onset of Symptom 2 weeks ago 12/01/2015 None nasal discharge Location in both nares 12/01/2015 None nasal discharge Quality acute 12/01/2015 None nasal discharge Quality worsening 12/01/2015 None nasal discharge Quality yellow 12/01/2015 None nasal discharge Onset and Resolution gradual in onset 12/01/2015 None nasal discharge Onset of Symptom 2 weeks ago 12/01/2015 None sinus congestion Quality acute 12/01/2015 None sinus congestion Quality fullness 12/01/2015 None sinus congestion Quality pain 12/01/2015 None sinus congestion Quality pressure 12/01/2015 None sinus congestion Location on both sides 12/01/2015 None sinus congestion Onset of Symptom 2 weeks ago 12/01/2015 None fever Quality acute 12/01/2015 None fever Quality intermitte nt 12/01/2015 None fever Onset and Resolution gradual in onset 12/01/2015 None fever Onset of Symptom 2 weeks ago 12/01/2015 None fever Temperature 100-10 2 degrees 12/01/2015 None chest congestion Quality acute 12/01/2015 None chest congestion Quality intermittent 12/01/2015 None chest congestion Quality painful 12/01/2015 None chest congestion Quality thick secretions 12/01/2015 None chest congestion Onset and Resolution gradual in onset 12/01/2015 None chest congestion Onset of Symptom 2 weeks ago 12/01/2015 None wheezing Location diffus merissa 12/01/2015 None wheezing Quality acute 12/01/2015 None wheezing Quality expirat ory only 12/01/2015 None wheezing Onset and Resolution gradual in onset 12/01/2015 None wheezing Onset of Symptom 2 weeks ago 12/01/2015 None Advance Directives No Advance Directive data Encounters Encounter Performer Loca tion Codes Date ([id number]) OFFICE/OUTPA TIENT VISIT EST Diagnosis: Acute upper respiratory infection, unspecified[ICD10: J06.9] Diagnosis: Generalized anxiety disorder[ICD10: F41.1] Diagnosis: Type 2 diabetes mellitus with hyperglycemia[ICD10: E11.65] Diagnosis: Encounter for therapeutic drug level monitoring[ICD10: Z51.81] Lisbeth JARAMILLO DO [facility] CPT-4: 49493 10/31/2018 ([id number]) OFFICE/OUTPA TIENT VISIT EST Diagnosis: Type 2 diabetes mellitus with hyperglycemia[ICD10: E11.65] Diagnosis: Essential (primary) hypertension[ICD10: I10] Nirmala DIAZR [facility] CPT-4: 71930 08/08/2018 ([id number]) OFFICE/OUTPA TIENT VISIT EST Diagnosis: Essential (primary) hypertension[ICD10: I10] Diagnosis: Type 2 diabetes mellitus with hyperglycemia[ICD10: E11.65] Diagnosis: Other fatigue[ICD10: R53.83] Nirmala JARAMILLO [facility] CPT-4: 08657 07/06/2018 ([id number]) OFFICE/OUTPA TIENT VISIT EST Diagnosis: Dizziness and giddiness[ICD10: R42] Diagnosis: Elevated blood-pressure reading, without diagnosis of hypertension[ICD10: R03.0] Shell ORNELASLINE Shantal JARAMILLO [facility] CPT-4: 46878 06/19/2018 ([id number]) OFFICE/OUTPA TIENT VISIT EST Diagnosis: Essential (primary) hypertension[ICD10: I10] Diagnosis: Dizziness and giddiness[ICD10: R42] Shell Silvia JARAMILLO [facility] CPT-4: 03864 06/13/2018 ([id number]) NURSE/OUTPAT IENT VISIT EST Diagnosis: Influenza due to identified novel influenza A virus with other manifestations[ICD10: J09.X9] Nirmala JARAMILLO [facility] CPT-4: 09371 04/26/2018 OFFICE/OUTPATIENT SIT EST Diagnosis: Pain in throat[ICD10: R07.0] Diagnosis: Acute pharyngitis, unspecified[ICD10: J02.9] Shell Silvia ORNELASLINE Shantal JARAMILLO [facility] CPT-4: 73510 04/25/2018 ([id number]) OFFICE/OUTPA TIENT VISIT EST Diagnosis: Acute sinusitis, unspecified[ICD10: J01.90] Diagnosis: Paresthesia of skin[ICD10: R20.2] Nirmala LUONG [facility] CPT-4: 93057 04/14/2018 ([id number]) OFFICE/OUTPA TIENT VISIT EST Diagnosis: Pain in right leg[ICD10: M79.604] Diagnosis: Sciatica, right side[ICD10: M54.31] Nirmala DIAZR [facility] CPT-4: 64575 01/31/2018 ([id number]) OFFICE/OUTPA TIENT VISIT EST Diagnosis: Pain in right leg[ICD10: M79.604] Lisbeth VENCES ER DO [facility] CPT-4: 49696 01/23/2018 ([id number]) OFFICE/OUTPA TIENT VISIT EST Diagnosis: Acute bronchitis, unspecified[ICD10: J20.9] Lisbteh CABRERA DO [facility] CPT-4: 11871 11/10/2017 ([id number]) PREV VISIT E ST AGE 40-64 Diagnosis: Encounter for screening for [...] R74.8] Diagnosis: Nonalcoholic steatohepatitis (MOORE)[ICD10: K75.81] Lisbeth VENCES [facility] CPT-4: 29915 09/22/2017 ([id number]) OFFICE/OUTPA TIENT VISIT EST Diagnosis: Acute sinusitis, unspecified[ICD10: J01.90] Lisbeth VENCES ER DO [facility] CPT-4: 15160 07/05/2017 OFFICE/OUTPATIENT SIT EST Diagnosis: Pneumonia, unspecified organism[ICD10: J18.9] Lisbeth VENCES ER [facility] CPT-4: 65040 03/04/2017 ([id number]) OFFICE/OUTPA TIENT VISIT EST Diagnosis: Polycystic ovarian syndrome[ICD10: E28.2] Diagnosis: Abnormal levels of other serum enzymes[ICD10: R74.8] Diagnosis: Nonalcoholic steatohepatitis (MOORE)[ICD10: K75.81] Diagnosis: Impaired glucose tolerance (oral)[ICD10: R73.02] Nirmala LUONG [facility] CPT-4: 26763 02/02/2017 ([id number]) OFFICE/OUTPA TIENT VISIT EST Diagnosis: VACCINE FOR TDAP[ICD10: Z23] Nirmala JARAMILLO [facility] CPT-4: 67602 11/30/2016 ([id number]) OFFICE/OUTPA TIENT VISIT EST Diagnosis: Cough[ICD10: R05] Diagnosis: Abnormal levels of other serum enzymes[ICD10: R74.8] Diagnosis: Family history of other endocrine, nutritional and metabolic diseases[ICD10: Z83.49] Nirmala JARAMILLO [facility] CPT-4: 66482 11/16/2016 ([id number]) OFFICE/OUTPA TIENT VISIT EST Diagnosis: Cough[ICD10: R05] Diagnosis: Other seasonal allergic rhinitis[ICD10: J30.2] Diagnosis: Abnormal levels of other serum enzymes[ICD10: R74.8] Nirmala LUONG [facility] CPT-4: 01790 09/06/2016 ([id number]) OFFICE/OUTPA TIENT VISIT EST Diagnosis: Cough[ICD10: R05] Diagnosis: Polycystic ovarian syndrome[ICD10: E28.2] Nirmala LUONG [facility] CPT-4: 67833 08/16/2016 ([id number]) OFFICE/OUTPA TIENT VISIT EST Diagnosis: Acute bronchitis, unspecified[ICD10: J20.9] Diagnosis: Acute upper respiratory infection, unspecified[ICD10: J06.9] Ananya Lopez NIRMALA JARAMILLO [facility] CPT-4: 92324 06/23/2016 ([id number]) OFFICE/OUTPA TIENT VISIT EST Diagnosis: PNEUMOCOCCAL VACCINE[ICD10: Z23] Nirmala JARAMILLO [facility] CPT-4: 65635 03/09/2016 ([id number]) OFFICE/OUTPA TIENT VISIT EST Diagnosis: Pneumonia, unspecified organism[ICD10: J18.9] Diagnosis: Polycystic ovarian syndrome[ICD10: E28.2] Diagnosis: Generalized anxiety disorder[ICD10: F41.1] Nirmala LUONG [employer] CPT-4: 20056 12/18/2015 ([id number]) OFFICE/OUTPA TIENT VISIT EST Diagnosis: Cough[ICD10: R05] Diagnosis: Acute bronchospasm[ICD10: J98.01] Nirmala LUONG [employer] CPT-4: 88058 12/11/2015 ([id number]) OFFICE/OUTPA TIENT VISIT EST Diagnosis: Pneumonia, unspecified organism[ICD10: J18.9] Ananya JARAMILLO [employer] CPT-4: 99702 12/08/2015 OFFICE/OUTPATIENT SIT NEW Diagnosis: Pneumonia, unspecified organism[ICD10: J18.9] Ananya JARAMILLO [employer] CPT-4: 77418 12/01/2015 Plan of Care Planned Activity Notes C odes Status Date Visit Diagnosis Plan: Type 2 diabetes me llitus with hyperglycemia Discussion: greg grimes and will prescrib e trulicyovanny. coupon card given to patient. educated patient on how to use at home with demo pen and patient verbalized understanding. instructed patient to call office if medication is still too expensive and will then try bydureon or a daily injectable and patient verbalized understanding. due for updated fasting labs. ICD-9 : 250.02 ICD-10 : E11.65 10/31/2018 Visit Diagnosis Plan: Generalized anxiety disorder Discussion: stable on xanax, refilled at this time. ICD-9 : 308.0 ICD-10 : F41.1 10/31/2018 Visit Diagnosis Plan: Acute upper respir atory infection, unspecified Discussion: zpack and prednisone prescri bed for symptom management. discussed that prednisone will increase blood sugars so to monitor and improve diet while on prednisone. patient lost her rescue inhaler when she was moving so will refill that to take as needed for wheezing, dyspnea. ICD-9 : 465.9 ICD-10 : J06.9 10/31/2018 Appointment: Lisbeth Kruger [address] [place], [place] [id number] ACUTE ILLNESS 10/31/2018 Patient Education: Trulicity- OptimizeRX Coupon [id number] [id number] https://www.[employer]rock[employer]visor/sampleLittle [employer]ed [employer]/resources/getResource/61/s075s9j9-z246-9a75-wt Completed 10/31/2018 Patient Education: Xanax- OptimizeRX Coupon [id number] https://www.Frockadvisor/samplemd/resources/getResource/61/gf60176a-8860-87u9-bw Completed 10/31/2018 Patient Education: prednisone- OptimizeRX Coupon [id number] [phone] https://www.[employer]rock[employer]/resources/getResource/61/155bx704-5552-27c5-13 Completed 10/31/2018 Patient Education: ProAir HFA- OptimizeRX Coupon [id number] https://www.[employer]rock[employer]visor/[employer]/resources/getResource/61/3rn20576-14x7-8206-17 Completed 10/31/2018 Visit Diagnosis Plan: Essential (primary) hypertension Discussion: Stable ICD-9 : 401.9 ICD-10 : I10 08/08/2018 Visit Diagnosis Plan: Type 2 diabetes me llitus with hyperglycemia Discussion: Lab discussed Accuchecks henna ly Continue current meds Check CMP and HbA1C end of September then fwup ICD-9 : 250.02 ICD-10 : E11.65 08/08/2018 Appointment: Nirmala Jaramillo WPtel: [phone] [facility] [place] FOLLOW UP 08/08/2018 Visit Diagnosis Plan: Essential (primary) hypertension Discussion: Improved with last med adjustment BP and pulse check in 2 weeks ICD-9 : 401.9 ICD-10 : I10 07/06/2018 Visit Diagnosis Plan: Type 2 diabetes me llitus with hyperglycemia Discussion: Lab discussed Accuchecks henna ly Continue current meds Check CMP and HbA1C in 3mos then fwup Follow Up: 1 months ICD-9 : 250.02 ICD-10 : E11.65 07/06/2018 Visit Diagnosis Plan: Other fatigue Discussion: Discussed may be from new meds/body adjusting Add Children's MV with iron, Vitamin D 1000u daily and Magnesium oxide 400mg daily due to HAs ICD-9 : 780.79 ICD-10 : R53.83 07/06/2018 Appointment: Nirmala Jaramillo WPtel: [address] [place] [address] FOLLOW UP 07/06/2018 Appointment: Nirmala Jaramillo WPtel: [facility]1 [facility] [place] Consult 06/22/2018 Patient Education: lisinopril- OptimizeRX Coupon [id number] https://www.[employer]rockadvisor/samplemd/resources/getResource/61/647s84u5-zas3-7451-pb Completed 06/22/2018 Visit Diagnosis Plan: Dizziness and giddiness Discussion: Recommend scheduling appt with court recording monitor. ICD-9 : 780.4 ICD-10 : R42 06/19/2018 Visit Diagnosis Plan: Essential (primary) hypertension Discussion: Increased lisinopril from 5 QD to 20 mg QD. Labs today- CBC, CMP, TSH, A1C. UA today- trace protein. hematuria (patient on period). ICD-9 : 401.9 ICD-10 : I10 06/19/2018 Appointment: Shell Vega [address] [place] [address] FOLLOW UP 06/19/2018 Visit Diagnosis Plan: Dizziness and giddiness Discussion: Most likely related to HTN. Advised to [...] ICD-10 : I10 06/13/2018 Appointment: Shell Vega [address] [place], [place] [id number] ACUTE ILLNESS 06/13/2018 Appointment: Nirmala Jaramillo WPtel: [facility]6 [place] [id number] FLU SWAB 04/26/2018 Visit Diagnosis Plan: Pain in throat Discussion: Rapid Strep A- negative Throat culture- pending. Will call patient with results. Prednisone 10 mg TID x 5 days. Supportive care- fluids, tylenol for pain, humidified air. ICD-9 : 784.1 ICD-10 : R07.0 04/25/2018 Appointment: Shell Vega [address] [id number] 04/25/2018 Visit Plan: Saline nasal flushes pr n. Tylenol/Motrin prn headache. Notify if persists/symptoms worsening. 04/14/2018 Visit Diagnosis Plan: Paresthesia of skin Discussion: Carpal tunnel wrist splints Will see if prednisone helps Discussed EMGs if persists ICD-9 : 782.0 ICD-10 : R20.2 04/14/2018 Visit Diagnosis Plan: Acute sinusitis, unspecified Discussion: Augmentin and prednisone Humidifier ICD-9 : 461.9 ICD-10 : J01.90 04/14/2018 Visit NOS Plan: Plan Notes: Saline nasal flushes prn. Tyle... 04/14/2018 Appointment: Nirmala Jaramillo WPtel: [address] [place] [address] ACUTE ILLNESS 04/14/2018 Patient Education: prednisone- OptimizeRX Coupon [id number] https://www.Frockadvisor/samplemd/resources/getResource/61/9wwl56hs-b3j5-66g4-x6 Completed 04/14/2018 Visit Diagnosis Plan: Pain in right leg Discussion: Check right tib/fib x-ray and start celebrex May need PT ICD-9 : 729.5 ICD-10 : M79.604 01/31/2018 Visit Diagnosis Plan: Sciatica, right side Discussion: Check L/S spine x-ray ICD-9 : 724.3 ICD-10 : M54.31 01/31/2018 Appointment: Nirmala Jaramillo WPtel: [facility]9 [place] [id number] FOLLOW UP 01/31/2018 Care Plan: X-RAY EXAM L-S SPINE 2/3 VWS LOINC : 13840-4 Pending 01/31/2018 Care Plan: X-RAY EXAM OF LOWER LEG LOINC : 02013-7 Pending 01/31/2018 Visit Diagnosis Plan: Pain in right leg Discussion: medrol pack prescribed for symptom management. instructed to purchase knee brace to be worn during day and elevate when seated. pennsaid samples given to patient with instructions on use bid for 1 week. call in one week with how she's feeling and may need studies completed. she verbalized understanding. ICD-9 : 729.5 ICD-10 : M79.604 01/23/2018 Appointment: Lisbeth Kruger [address] [place] [address] ACUTE ILLNESS 01/23/2018 Visit Diagnosis Plan: Acute bronchitis, unspecified Discussion: sent for stat xray of chest. 40 [...] : J20.9 11/10/2017 Appointment: Lisbeth Kruger [address] [place] [address] ACUTE ILLNESS 11/10/2017 Patient Education: Patient Medication Summary Completed 11/10/2017 Care Plan: CHEST X-RAY 2VW FRONTAL&LATL LOINC : 60356-3 Pending 11/10/2017 Patient Education: Patient Medication Summary Completed 09/26/2017 Care Plan: A1C HPLC LO INC : 14766-6 Pending 09/26/2017 Visit Diagnosis Plan: Encounter for gyne cological examination (general) (routine) with abnormal findings Discussion: thick cervical drainage noted during exam. culture to be completed. ICD-9 : V72.31 ICD-10 : Z01.411 09/22/2017 Visit Diagnosis Plan: Encounter for scre [...] 09/22/2017 Visit Diagnosis Plan: Encounter for gene [facility] adult medical examination without abnormal findings Discussion: fasting blood work ordered t o be obtained at [facility] in the next few days when fasting. ICD-9 : V70.9 ICD-10 : Z00.00 09/22/2017 Visit Diagnosis Plan: Encounter for scre ening for malignant neoplasm of colon Discussion: rectal exam, ob stool obtain ed. negative for blood. ICD-9 : V76.51 ICD-10 : Z12.11 09/22/2017 Visit Diagnosis Plan: Generalized anxiety disorder Discussion: stable on lexapro but xanax refilled for #15 to only take as directed. ICD-9 : 308.0 ICD-10 : F41.1 09/22/2017 Appointment: Lisbeth Kruger [address] [place] [address] Annual Well Visit 09/22/2017 Patient Education: Patient Medication Summary Completed 09/22/2017 Visit Diagnosis Plan: Acute sinusitis, unspecified Discussion: augmentin bid for 10 days. pseudoephedrine prn for congestion. increase fluid intake. call with worsening symptoms this week, otherwise, call clinic next week if no improvement. instructed to take probiotic bid to prevent yeast infections/GI upset. ICD-9 : 461.9 ICD-10 : J01.90 07/05/2017 Appointment: Lisbeth Kruger [address] [place] [address] ACUTE ILLNESS 07/05/2017 Patient Education: Patient Medication [...] ICD-10 : J18.9 03/04/2017 Appointment: Lisbeth Kruger [address] [place], [place] [address] FOLLOW UP 03/04/2017 Patient Education: Patient Medication [...] : R74.8 02/02/2017 Appointment: Nirmala Jaramillo WPtel: [address] [place], [place] [phone] FOLLOW UP 02/02/2017 Patient Education: Patient Medication Summary Completed 02/02/2017 Care Plan: Referral Order SNOMED-CT : 591307603 Pending 02/02/2017 Patient Education: Patient Medication Summary Completed 01/28/2017 Care Plan: ACUTE HEPATITIS PANEL LOINC : 48211-7 Pending 01/28/2017 Patient Education: Patient Medication Summary Completed 01/26/2017 Care Plan: COMPREHEN METABOLIC PANEL LOINC : 75981-1 Pending 01/26/2017 Care Plan: A1C HPLC LO INC : 99870-9 Pending 01/26/2017 Appointment: Nirmala Jaramillo WPtel: [address] [place], [place] [phone] [place] INJECTION 11/30/2016 Referral: Sav Goff[address] [place] [address] Referral Initiated 11/30/2016 Patient Education: Patient Medication Summary Completed 11/30/2016 Visit Diagnosis Plan: Superficial foreig n body, left foot, initial encounter Discussion: Left foot area cleansed [...] : S90.852A 11/29/2016 Appointment: Nirmala Jaramillo WPtel: [facility]6 [facility] ACUTE ILLNESS 11/29/2016 Patient Education: Patient Medication Summary Completed 11/29/2016 Visit Diagnosis Plan: Abnormal levels of other serum e nzymes Discussion: Check LFTs ICD-9 : 790.5 ICD-10 : R74.8 11/16/2016 Visit Diagnosis Plan: Family history of other endocrine, nutritional and metabolic diseases Discussion: Check TSH, Free T4, TT# Follow Up: As needed ICD-9 : V18.19 ICD-10 : Z83.49 11/16/2016 Visit Diagnosis Plan: Cough Discussi on: Check PFT Start Protonix See pulmonology ICD-9 : 786.2 ICD-10 : R05 11/16/2016 Appointment: Nirmala Jaramillo WPtel: [address] [place], [place] [id number] FOLLOW UP 11/16/2016 Patient Education: Patient Medication Summary Completed 11/16/2016 Care Plan: Referral Order SNOMED-CT : 131744789 Pending 11/16/2016 Appointment: Nirmala Jaramillo WPtel: [address] [place] [id number] [place] RESCHEDULED 11/08/2016 Visit Diagnosis Plan: Other hypertrophic disorders of the skin Discussion: Irritated skin tags excised at base and then bases cauterized ICD-9 : 701.9 ICD-10 : L91.8 10/05/2016 Appointment: Nirmala Jaramillo WPtel: [address] [place] [phone] confirmed-sp OFFICE SURGERY 10/05/2016 Patient Education: Patient Medication Summary Completed 10/05/2016 Appointment: Nirmala Jaramillo WPtel: [facility] [place] [place] Per doctor~sl 09/09 canceled due to work ~sl CANCELED 09/10/2016 Visit Diagnosis Plan: Other seasonal allergic rhinitis Discussion: As above ICD-9 : 477.9 ICD-10 : J30.2 09/06/2016 Visit Diagnosis Plan: Abnormal levels of other serum e nzymes Discussion: Update liver enzymes ICD-9 : 790.5 ICD-10 : R74.8 09/06/2016 Visit Diagnosis Plan: Cough Discussi on: Continue zyrtec and singulair Add flonase If [facility] then will see ENT Follow Up: 2 months ICD-9 : 786.2 ICD-10 : R05 09/06/2016 Appointment: Nirmala Jaramillo WPtel: [address] [place], [place] [phone] 7/ lm~sl FOLLOW UP 09/06/2016 Patient Education: Patient Medication Summary Completed 09/06/2016 Patient Education: Patient Medication Summary Completed 08/18/2016 Care Plan: ACUTE HEPATITIS PANEL LOINC : 64074-0 Pending 08/18/2016 Care Plan: TICKBORNE DISEASE PANEL (WITH LYME ANTIBODY Pending 08/18/2016 Visit Diagnosis Plan: Polycystic ovarian syndrome Discussion: Annual labs TSH, Free T4, CBC, CMP, lipids ICD-9 : 256.4 ICD-10 : E28.2 08/16/2016 Visit Diagnosis Plan: Cough Discussi on: Throat culture Stop Proair Continue humidifier, and supportive therapy ENT if culture negative and persists Follow Up: 2 weeks ICD-9 : 786.2 ICD-10 : R05 08/16/2016 Appointment: Nirmala Jaramillo WPtel: [address] [place], [place] [phone] 08/13 confirmed `sl WORK IN 08/16/2016 Patient Education: Patient Medication Summary Completed 08/16/2016 Care Plan: MAMMOGRAM SCREENING Grand mother Br Ca in late 30's LOINC : 72594-3 Pending 08/16/2016 Patient Education: Patient Medication Summary Completed 07/27/2016 Visit Diagnosis Plan: Acute bronchitis, unspecified Discussion: Rxs as above Borrow neb machine until home with hers if needed OTC meds reviewed Watch BSs closely Follow up if not improving ICD-9 : 466.0 ICD-10 : J20.9 06/23/2016 Appointment: Ananya Lopez [address] [place], [place] [id number] ACUTE ILLNESS 06/23/2016 Patient Education: Patient Medication Summary Completed 06/23/2016 Appointment: Nirmala Jaramillo WPtel: [address] [place], [place] [phone] INJECTION 03/09/2016 Patient Education: Patient Medication Summary Completed 03/09/2016 Appointment: Nirmala Jaramillo WPtel: [phone] [facility] [place] INJECTION 02/16/2016 Visit Plan: Decrease Breo to 100/25 mcg 1p BID for another week Flu shot with Prevnar 13 next week if covered Refill metformin 12/18/2015 Appointment: Nirmala Jaramillo WPtel: [address] [place], [place] [phone] 12/16 confirmed`sl FOLLOW UP 12/18/2015 Patient Education: Patient Medication Summary Completed 12/18/2015 Patient Education: [employer] - Lexapro - $10 Off - Even PatientIDs Completed 12/18/2015 Visit Plan: CXR negative Kenalog/De xamethasone today Add Breo 200 1p BID for 1 week then Breo 100 1 p BID Tussionex rx given Continue SVNs with albuterol BID Notify if worsening Recheck 1week 12/11/2015 Visit Plan: CXR negative Kenalog/De xamethasone today Add Breo 200 1p BID for 1 week then Breo 100 1 p BID Tussionex rx given Continue SVNs with albuterol BID Notify if worsening Recheck 1week 12/11/2015 Appointment: Nirmala Jaramillo WPtel: [address] [place], [place] [phone] ACUTE ILLNESS 12/11/2015 Patient Education: Patient Medication Summary Completed 12/11/2015 Visit Plan: Patient sounds and appe ars improved Continue mucinex, vit C, breathing treatments, humidifier, vicks, etc CXR on am and will call with report before the weekend Monitor for any return of concer octavio symptoms - fevers, chills, worsening cough, etc 12/08/2015 Visit Plan: Patient sounds and appe ars improved Continue mucinex, vit C, breathing treatments, humidifier, vicks, etc CXR on am and will call with report before the weekend Monitor for any return of concer octavio symptoms - fevers, chills, worsening cough, etc 12/08/2015 Appointment: Ananya Lopez [address] [place], [place] [phone] 12/04 Lm~sl....confirmed-sp FOLLOW UP 12/08/2015 Patient Education: Patient Medication Summary Completed 12/08/2015 Visit Plan: Finish levaquin ordered by [employer] Add above [...] sooner if not continuing to improve 12/01/2015 Visit Plan: Finish levaquin ordered by [employer] Add above [...] continuing to improve 12/01/2015 Appointment: Ananya Lopez [facility]5 [facility] 11/30 lm ~sl NEW PATIENT 12/01/2015 Patient Education: Patient Medication Summary Completed 12/01/2015 Referral: Chan Chavez WPtel: [address] [place] Referral Completed Referral: Dhruv Lubin WPtel: [address] [facility] 3 [id number] Referral Initiated Instructions Comment . CXR negative Kenalog/Dexamethasone today Add Breo 200 1p BID for 1 week then Breo 100 1 p BID Tussionex rx given Continue SVNs with albuterol BID Notify if worsening Recheck 1week . CXR negative Kenalog/Dexamethasone today Add Breo 200 1p BID for 1 week then Breo 100 1 p BID Tussionex rx given Continue SVNs with albuterol BID Notify if worsening Recheck 1week . Decrease Breo to 1 00/25mcg 1p BID for another week Flu shot with Prevnar 13 next week if covered Refill metformin . Saline nasal flush es prn. Tylenol/Motrin prn headache. Notify if persists/symptoms worsening. . Patient sounds and appears improved Continue mucinex, vit C, breathing treatments, humidifier, vicks, etc CXR on am and will call with report before the weekend Monitor for any return of concerning symptoms - fevers, chills, worsening cough, etc . Patient sounds and appears improved Continue mucinex, vit C, breathing treatments, humidifier, vicks, etc CXR on am and will call with report before the weekend Monitor for any return of concerning symptoms - fevers, chills, worsening cough, etc . Finish levaquin or dered by [facility] Add above meds has nebulizer machine she can use Supportive care reviewed Monitor BS closely - glucometer and instructions on use given - reports history of "insulin resistance" Follow up in 1 week for recheck - will plan to get xray after she's off her meds to be sure infection resolved - follow up sooner if not continuing to improve . Finish levaquin or dered by [facility] Add above meds has nebulizer machine she [...]
[2019-05-18 13:22] LABS: BASOPHILS % (AUTO) 1 % (0-10); EOSINOPHILS # (AUTO) 0.2 10^3/uL (0.0-0.3); EOSINOPHILS % (AUTO) 4 % (0-10); HEMATOCRIT 37 % (35-52); HEMOGLOBIN 12.1 G/DL (11.5-16.0); LYMPHOCYTES # (AUTO) 1.6 X 10^3 (1.0-4.0); LYMPHOCYTES % (AUTO) 28 % (12-44); MEAN CORPUSCULAR HEMOGLOBIN 29 PG (25-34); MEAN CORPUSCULAR HGB CONC 33 G/DL (32-36); MEAN CORPUSCULAR VOLUME 87 FL (80-99); MEAN PLATELET VOLUME 11.7 FL (7.4-10.4); MONOCYTES # (AUTO) 0.5 X 10^3 (0.0-1.0); MONOCYTES % (AUTO) 8 % (0-12); NEUTROPHILS # (AUTO) 3.4 X 10^3 (1.8-7.8); NEUTROPHILS % (AUTO) 60 % (42-75); PLATELET COUNT 230 10^3/uL (130-400); RED CELL DISTRIBUTION WIDTH 14.8 % (10.0-14.5); WHITE BLOOD COUNT 5.6 10^3/uL (4.3-11.0)
--- OUTSIDE RECORDS SUMMARY | 2019-05-18 13:22 | XMS REPORT | CCD ---
Author Veronica Robles Organization [facility] Address [address] [place] [address] Phone Unavailable Care Team Providers Care Master Brewer Name Role Phone Nirmala Jaramillo D.O., PP Unavailable CCM Unavailable Summary Purpose Interface Exchange Insurance Providers Payer name Policy type / Coverage type Covered democrat ID Effective Begin Date Effective End Date [employer] Commercial Insurance [id number] Unknown Family History Family History data not found Social History Social History Element Codes Description Effective Dates Marital status Unknown M arried 12/01/2015 Number of children Unknown 3 12/01/2015 Employment Unknown Curre ntly employed 12/01/[address]: 752585688 Never smoker 12/01/[address]: 750485188 Never drinks alcohol 12/01/2015 Allergies, Adverse Reactions, [...] Fill Instructions Xanax 0.25 mg tablet RxNorm: 461707 1 Tablet(s) PO as needed 10/31/2018 No Stop Date Active prednisone 20 mg tablet RxNorm: 709340 1 Tablet(s) PO BID 10/31/2018 11/04/2018 Active Zithromax Z-Ab 250 mg tablet RxNorm: 962509 Tablet(s) take as dir ected PO 10/31/2018 No Stop Date Active ProAir HFA 90 mcg/ac tuation aerosol inhaler RxNorm: 428635 2 Puff(s) INH Q4H as needed 10/31/2018 No Stop Date Active if insurance does not cover, please swit ch to ventolin. Trulicity 0.75 mg/0. 5 mL subcutaneous pen injector RxNorm: 4629013 1 Unit Dose SQ QW 10/31/2018 No Stop Date Active Ozempic 0.25 mg or 0 .5 mg (2 mg/1.5 mL) subcutaneous pen injector RxNorm: 5237210 0.5 Milligram(s) SQ QW 10/09/2018 10/30/2018 Inactive Ozempic 0.25 mg or 0 .5 mg (2 mg/1.5 mL) subcutaneous pen injector RxNorm: 0557806 0.5 Gram(s) SQ QW 10/05/2018 10/08/2018 Inactive lisinopril 40 mg tablet RxNorm: 622528 1 Tablet(s) PO QD 09/18/2018 12/16/2018 Active metformin 1,000 mg t ablet RxNorm: 098030 1 TABLET(S) PO QD 09/06/2018 03/04/2019 Active Trulicity 0.75 mg/0. 5 mL subcutaneous pen injector RxNorm: 5208570 0.75 Milligram(s) SQ QW Replaces Ozemic 08/28/2018 10/30/2018 Inactive replaces Ozempic Ozempic 0.25 mg or 0 .5 mg (2 mg/1.5 mL) subcutaneous pen injector RxNorm: 4676640 0.5 Milligram(s) SQ WEEKLY 08/28/2018 10/05/2018 Inactive metformin 1,000 mg t ablet RxNorm: 160382 1 Tablet(s) PO QD 08/23/2018 09/05/2018 Inactive Ozempic 0.25 mg or 0 .5 mg (2 mg/1.5 mL) subcutaneous pen injector RxNorm: 8755307 0.5 Milligram(s) SQ WEEKLY 08/03/2018 08/27/2018 Inactive amlodipine 5 mg tablet RxNorm: 861653 1 Tablet(s) PO QD 07/25/2018 11/21/2018 Active Lexapro 20 mg tablet RxNorm: 520386 1 Tablet(s) PO QD 07/10/2018 01/05/2019 Active lisinopril 40 mg tablet RxNorm: 688710 1 Tablet(s) PO QD 07/10/2018 09/07/2018 Inactive amlodipine 5 mg tablet RxNorm: 649269 1 Tablet(s) PO QD 06/22/2018 07/20/2018 Inactive lisinopril 40 mg tablet RxNorm: 755447 1 Tablet(s) PO QD 06/22/2018 07/09/2018 Inactive lisinopril 20 mg tablet RxNorm: 077069 1 Tablet(s) PO QD 06/19/2018 06/21/2018 Inactive lisinopril 5 mg tablet RxNorm: 810063 1 Tablet(s) PO QD 06/13/2018 06/18/2018 Inactive metformin 1,000 mg t ablet RxNorm: 149115 Tablet(s) TABLET(S) 1 TABLET(S) PO QD 06/08/2018 08/22/2018 In active Tamiflu 75 mg capsule RxNorm: 523539 1 Capsule(s) PO BID 04/26/2018 04/30/2018 Inactive Tamiflu 75 mg capsule RxNorm: 492679 1 Capsule(s) PO BID 04/26/2018 04/25/2018 Inactive prednisone 10 mg tablet RxNorm: 071805 1 Tablet(s) PO TID 04/25/2018 04/29/2018 Inactive prednisone 20 mg tablet RxNorm: 317481 1 Tablet(s) PO BID 04/14/2018 04/20/2018 Inactive Augmentin 500 mg-125 mg tablet RxNorm: 431989 1 Tablet(s) PO BID 04/14/2018 04/20/2018 Inactive metformin 1,000 mg t ablet RxNorm: 102187 TABLET(S) 1 TABLET(S) PO QD 03/09/2018 06/06/2018 Inactive celecoxib 200 mg cap lalito RxNorm: 804639 1 Capsule(s) PO BID for diana n 01/31/2018 03/01/2018 Inactive metformin 1,000 mg t ablet RxNorm: 613447 1 Tablet(s) PO BID 01/23/2018 No Stop Date Active Medrol (Ab) 4 mg ta blets in a dose pack RxNorm: 277226 Tablet(s) PO take as directed 01/23/2018 01/30/2018 Inactive Lexapro 20 mg tablet RxNorm: 020330 Tablet(s) 1 TABLET(S) PO QD 01/23/2018 06/21/2018 Inactive Lexapro 20 mg tablet RxNorm: 035777 Tablet(s) 1 TABLET(S) PO QD 11/03/2017 01/22/2018 Inactive metformin 1,000 mg t ablet RxNorm: 843861 1 Tablet(s) PO BID 09/27/2017 01/22/2018 Inactive Lexapro 20 mg tablet RxNorm: 868866 Tablet(s) 1 TABLET(S) PO QD 09/22/2017 11/02/2017 Inactive metformin 1,000 mg t ablet RxNorm: 553177 Tablet(s) 1 TABLET(S) PO QD 09/22/2017 09/26/2017 Inactive Xanax 0.25 mg tablet RxNorm: 141517 1 Tablet(s) PO as needed 09/22/2017 10/30/2018 Inactive metformin 1,000 mg t ablet RxNorm: 202656 Tablet(s) 1 TABLET(S) PO QD NEEDS UPDATED LABS 09/06/2017 09/20/2017 Inactive metformin 1,000 mg t ablet RxNorm: 812293 1 TABLET(S) PO QD NEE DS UPDATED LABS 08/24/2017 09/05/2017 In active metformin 1,000 mg t ablet RxNorm: 191982 1 Tablet(s) PO QD Nee ds updated labs 08/08/2017 08/22/2017 In active Lexapro 20 mg tablet RxNorm: 537263 1 TABLET(S) PO QD 07/17/2017 09/21/2017 Inactive pseudoephedrine 30 m g tablet RxNorm: 5854388 1-2 Tablet(s) PO Q6H 07/05/2017 06/12/2018 Inactive Augmentin 875 mg-125 mg tablet RxNorm: 178823 1 Tablet(s) PO BID 07/05/2017 07/14/2017 Inactive metformin 1,000 mg t ablet RxNorm: 859508 1 Tablet(s) PO QD Nee ds updated labs 07/04/2017 08/08/2017 In active metformin 1,000 mg t ablet RxNorm: 268887 1 Tablet(s) PO QD Nee ds updated labs 05/30/2017 07/04/2017 In active Levaquin 750 mg tablet RxNorm: 860998 1 Tablet(s) PO QD 03/04/2017 03/10/2017 Inactive ProAir HFA 90 mcg/ac tuation aerosol inhaler RxNorm: 797248 2 Puff(s) INH Q4H as needed 03/04/2017 07/04/2017 Inactive if insurance does not cover, please swit ch to lita. Tamiflu 75 mg capsule RxNorm: 879074 1 Capsule(s) PO QD 03/04/2017 03/10/2017 Inactive metformin 1,000 mg t ablet RxNorm: 911874 1 Tablet(s) PO QD 02/15/2017 05/15/2017 Inactive Lexapro 20 mg tablet RxNorm: 731722 1 Tablet(s) PO QD 01/17/2017 11/03/2017 Inactive cephalexin 500 mg ca psule RxNorm: 348630 1 Capsule(s) PO TID 11/29/2016 12/08/2016 Inactive pantoprazole 40 mg t ablet,delayed release RxNorm: 315562 1 Tablet(s) PO QD 11/16/2016 03/15/2017 In active metformin 1,000 mg t ablet RxNorm: 501832 TAKE 1 TABLET BY MOUT H EVERY DAY 10/10/2016 02/15/2017 In active Flonase Allergy Reli ef 50 mcg/actuation nasal spray,suspension RxNorm: 5064569 2 [place] NASAL QHS 09/06/2016 11/15/2016 Inactive Singulair 10 mg tablet RxNorm: 713219 1 Tablet(s) PO QHS 09/06/2016 11/15/2016 Inactive Singulair 10 mg tablet RxNorm: 247598 1 Tablet(s) PO QHS 08/12/2016 09/05/2016 Inactive ProAir HFA 90 mcg/ac tuation aerosol inhaler RxNorm: 273745 1 Puff(s) INH Q4H as needed 08/12/2016 08/15/2016 Inactive Medrol (Ab) 4 mg ta blets in a dose pack RxNorm: 293993 Tablet(s) PO As Direc kenny 07/29/2016 08/15/2016 In active Lexapro 20 mg tablet RxNorm: 729390 1 Tablet(s) PO QD 07/06/2016 01/17/2017 Inactive doxycycline hyclate 100 mg capsule RxNorm: 0754956 1 Capsule(s) PO BID 06/24/2016 06/23/2016 In active doxycycline hyclate 100 mg capsule RxNorm: 4188295 1 Capsule(s) PO BID 06/24/2016 07/03/2016 In active ProAir HFA 90 mcg/ac tuation aerosol inhaler RxNorm: 177103 1 Puff(s) INH Q4H as needed 06/23/2016 08/11/2016 Inactive prednisone 20 mg tablet RxNorm: 501285 1 Tablet(s) PO BID 06/23/2016 06/27/2016 Inactive metformin 1,000 mg t ablet RxNorm: 304188 1 Tablet(s) PO QD 12/18/2015 06/14/2016 Inactive Lexapro 20 mg tablet RxNorm: 350274 1 Tablet(s) PO QD 12/18/2015 07/06/2016 Inactive prednisone 20 mg tablet RxNorm: 583630 Take 3 tabs PO QD x 3 days, then 2 tabs PO QD x 3 days, then 1 tab PO QD x 3 days 12/01/2015 12/10/2015 Inactive albuterol sulfate 2. 5 mg/3 mL (0.083 %) solution for nebulization RxNorm: 310111 3 Milliliter(s) INH Q4H as needed 07/04/2017 Inactive Singulair 10 mg tablet RxNorm: 939298 1 Tablet(s) PO QHS No Start Date 08/11/2016 Inactive Breo Ellipta 100 mcg -25 mcg/dose powder for inhalation RxNorm: 1006785 1 Puff(s) INH QD No Start Date 02/01/2017 Inactive Zyrtec 10 mg tablet RxNorm: 8742856 1 Tablet(s) PO QAM No Start Date 11/15/2016 Inactive Xanax 0.25 mg tablet RxNorm: 779677 1 Tablet(s) PO as needed No Start Date 09/21/2017 Inactive metformin 1,000 mg t ablet RxNorm: 677958 1 Tablet(s) PO QD No Start Date 12/17/2015 Inactive Singulair 10 mg tablet RxNorm: 280481 1 Tablet(s) PO QHS No Start Date 11/15/2016 Inactive metformin 1,000 mg t ablet RxNorm: 882822 1 Tablet(s) PO QD No Start Date 02/14/2017 Inactive metformin 1,000 mg t ablet RxNorm: 868601 1 Tablet(s) PO BID No Start Date 09/26/2017 Inactive Trulicity 0.75 mg/0. 5 mL subcutaneous pen injector RxNorm: 7513255 0.75 Milligram(s) SQ QW No Start Date 08/27/2018 Inactive Medrol (Ab) 4 mg ta blets in a dose pack RxNorm: 918560 Tablet(s) PO As Direc kenny No Start Date 07/28/2016 Inactive Lexapro 20 mg tablet RxNorm: 579344 1 Tablet(s) PO QD No Start Date 12/17/2015 Inactive Lexapro 20 mg tablet RxNorm: 231074 1 Tablet(s) PO QD No Start Date [...] flu swab cough 04/25/2018 sore throat 04/14/2018 [facility] treated her with Zpack and finished yesterday however she wasn't checked for flu or strep follow up 01/31/2018 lower leg pain 01/23/2018 right leg cough 11/10/2017 patient was seen at [facility] and given Levaquin and 5 day steroid [...] and prednisone follow up 12/08/2015 [address] [place] ~generic 12/01/2015 [facility] Results Observation Observation Code Item Item Code Result Date VIRAL HEPATITIS PROFILE #2 83019 Hep A IgM Non-Reactive 06/21/19 19 VIRAL HEPATITIS PROFILE #2 73320 Hep B Core IgM Non-Reactive 06/20/2018 VIRAL HEPATITIS PROFILE #2 29975 Hepatitis C Ab Non-Reactive 06/20/2018 VIRAL HEPATITIS PROFILE #2 46573 Hep Bs Ag Non-Reactive 06/21/19 19 MEAN GLUC 5991398 Calc M alexandra Gluc 194 mg/dL 06/19/2018 COMPREHENSIVE METABOLIC 72946 AST 94 U/L 06/19/2018 COMPREHENSIVE METABOLIC 61331 ALT 160 U/L 06/19/2018 COMPREHENSIVE METABOLIC 27902 BUN 9 mg/dL 06/19/2018 COMPREHENSIVE METABOLIC 45038 ALBUMIN 4.6 g/dL 06/19/2018 COMPREHENSIVE METABOLIC 18344 CHLORIDE 101 mmol/L 06/19/2018 COMPREHENSIVE METABOLIC 73363 Bili Total 0.9 mg/dL 06/19/2018 COMPREHENSIVE METABOLIC 52482 ALK PHOS 64 U/L 06/19/2018 COMPREHENSIVE METABOLIC 12349 SODIUM 136 mmol/L 06/19/2018 COMPREHENSIVE METABOLIC 68585 CREATININE 0.58 mg/dL 06/19/2018 COMPREHENSIVE METABOLIC 70495 CALCIUM 10.3 mg/dL 06/19/2018 COMPREHENSIVE METABOLIC 46744 POTASSIUM 3.7 mmol/L 06/19/2018 COMPREHENSIVE METABOLIC 34420 Total Protein 7.1 g/dL 06/19/2018 COMPREHENSIVE METABOLIC 71561 Glucose 187 mg/dL 06/19/2018 COMPREHENSIVE METABOLIC 81234 Bicarbonate 26 mmol/L 06/19/2018 COMPREHENSIVE METABOLIC 52204 AGAP 9 mmol/L 06/19/2018 GLYCOSYLATED HEMOGLOBIN TEST 41194 Hgb A1c 45510-9 8.4 % 06/19/2018 COMPLETE BLOOD COUNT 2931674 WBC 6.2 10e9/L 06/19/2018 COMPLETE BLOOD COUNT 9556956 RBC 4.70 10e12/L 9 COMPLETE BLOOD COUNT 8416025 HEMOGLOBIN 13.4 g/dL 06/19/2018 COMPLETE BLOOD COUNT 6502236 HEMATOCRIT 39.9 % 06/19/2018 COMPLETE BLOOD COUNT 2228577 MCV 84.9 fL 06/19/2018 COMPLETE BLOOD COUNT 5191357 MCH 28.5 pg 06/19/2018 COMPLETE BLOOD COUNT 8945750 MCHC 33.6 g/dL 06/19/2018 COMPLETE BLOOD COUNT 0853205 PLATELET COUNT 252 10e9/L 06/19/2018 COMPLETE BLOOD COUNT 8983389 Mean Plt Volume 12.2 fL 06/19/2018 COMPLETE BLOOD COUNT 5546398 Neut Auto 53.9 % 06/19/2018 COMPLETE BLOOD COUNT 3518176 Lymph Auto 35.2 % 06/19/2018 COMPLETE BLOOD COUNT 7046647 [place] Auto 7.1 % 06/19/2018 COMPLETE BLOOD COUNT 1100727 RDW 14.1 % 06/19/2018 COMPLETE BLOOD COUNT 1169856 Eos Auto 3.2 % 06/19/2018 COMPLETE BLOOD COUNT 3956267 Baso Auto 0.6 % 06/19/2018 COMPLETE BLOOD COUNT 3741218 Neutrophil Abs 3.34 10e9/L 06/19/2018 COMPLETE BLOOD COUNT 2130829 Lymphocyte Abs 2.18 10e9/L 06/19/2018 COMPLETE BLOOD COUNT 5408751 Monocyte Abs 0.44 10e9/L 06/19/2018 COMPLETE BLOOD COUNT 0067459 Eosinophil Abs 0.20 10e9/L 06/19/2018 COMPLETE BLOOD COUNT 1321654 RDW-SD 42.7 fL 06/19/2018 COMPLETE BLOOD COUNT 9026457 Basophil Abs 0.04 10e9/L 06/19/2018 THYROID STIMULATING HORMONE 74581 TSH 1.976 uIU/mL 9 GFR CALC 3332255 GFR Non Afr Amr >60 mL/min 06/19/2018 GFR CALC 6670119 GFR Afr Amr >60 mL/min 06/19/2018 SURESWAB(R), BACTERIAL VAGINOSIS/VAGINITIS 23837 BV CATEGORY: TNP 09/27/2017 SURESWAB(R), BACTERIAL VAGINOSIS/VAGINITIS 64812 LACTOBACILLUS SPECIES DNR 09/27/2017 SURESWAB(R), BACTERIAL VAGINOSIS/VAGINITIS 45923 ATOPOBIUM VAGINAE DNR 09/27/2017 SURESWAB(R), BACTERIAL VAGINOSIS/VAGINITIS 98520 MEGASPHAERA SPECIES DN R 09/27/2017 SURESWAB(R), BACTERIAL VAGINOSIS/VAGINITIS 36202 GARDNERELLA VAGINALIS DNR 09/27/2017 SURESWAB(R), BACTERIAL VAGINOSIS/VAGINITIS 31136 SURESWAB(R) TRICHOMONAS VAGINALIS RNA, QL TMA TNP 09/27/2017 SURESWAB(R), BACTERIAL VAGINOSIS/VAGINITIS 93916 C. ALBICANS, DNA TNP 09/27/2017 SURESWAB(R), BACTERIAL VAGINOSIS/VAGINITIS 45607 C. GLABRATA, DNA DNR 09/27/2017 SURESWAB(R), BACTERIAL VAGINOSIS/VAGINITIS 55575 C. TROPICALIS, DNA DNR 09/27/2017 SURESWAB(R), BACTERIAL VAGINOSIS/VAGINITIS 44781 C. PARAPSILOSIS, DNA D NR 09/27/2017 THINPREP TIS AND HPV mRNA E6/E7 77526 REPORT STATUS: DNR 09/27/2017 THINPREP TIS AND HPV mRNA E6/E7 20636 CLINICAL INFORMATION: 09/27/2017 THINPREP TIS AND HPV mRNA E6/E7 97918 LMP: 09/02/2017 09/27/2017 THINPREP TIS AND HPV mRNA E6/E7 03421 PREV. PAP: 09/27/2017 THINPREP TIS AND HPV mRNA E6/E7 78881 PREV. BX: 09/27/2017 THINPREP TIS AND HPV mRNA E6/E7 47832 SOURCE: [employer]ervix 09/27/2017 THINPREP TIS AND HPV mRNA E6/E7 37898 STATEMENT OF ADEQUACY: 09/27/2017 THINPREP TIS AND HPV mRNA E6/E7 88555 GENERAL CATEGORIZATION: DNR 09/27/2017 THINPREP TIS AND HPV mRNA E6/E7 64229 INTERPRETATION/RESULT: 09/27/2017 THINPREP TIS AND HPV mRNA E6/E7 71872 INFECTION: DNR 09/27/2017 THINPREP TIS AND HPV mRNA E6/E7 76184 COMMENT: 09/27/2017 THINPREP TIS AND HPV mRNA E6/E7 41798 MANAGER MISSION: 09/27/2017 THINPREP TIS AND HPV mRNA E6/E7 19655 REVIEW MANAGER MISSION: DNR 09/27/2017 THINPREP TIS AND HPV mRNA E6/E7 95771 PATHOLOGIST: DNR 09/27/2017 THINPREP TIS AND HPV mRNA E6/E7 55756 COMMENT 09/27/2017 THINPREP TIS AND HPV mRNA E6/E7 42773 HPV mRNA E6/E7 Not Detected 09/27/2017 CULTURE, GENITAL 18809 C ULTURE, GENITAL SEE NOTE 09/25/2017 CULTURE, THROAT 77721 CU LTURE, THROAT SEE NOTE 08/19/2016 Review [...] nign 10/31/2018 None Full Exam - General Constitutional [...] Procedures Procedure Codes Date ROUTINE VENIPUNCTURE CPT-4: 18226 06/19/2018 COMPLETE CBC W/AUTO DIFF WBC CPT-4: 62318 06/19/2018 COMPREHEN METABOLIC PANEL CPT-4: 52202 06/19/2018 A1C HPLC CPT-4: 22003 06/19/2018 ASSAY THYROID STIM H ORMONE CPT-4: 24686 06/19/2018 URINALYSIS NONAUTO W /O SCOPE CPT-4: 09382 06/19/2018 ACUTE HEPATITIS PANEL CPT-4: 59030 06/19/2018 INFLUENZA ASSAY W/OPTIC CPT-4: 95262 04/26/2018 STREP A ASSAY W/OPTIC CPT-4: 70818 04/25/2018 THROAT CULTURE CPT-4: 72113 04/25/2018 CEFTRIAXONE SODIUM I NJECTION CPT-4: J0696 11/10/2017 DEXAMETHASONE SODIUM PHOS CPT-4: J1100 11/10/2017 THER/PROPH/DIAG INJ SC/IM CPT-4: 60206 11/10/2017 TRIAMCINOLONE ACET I NJ NOS CPT-4: J3301 11/10/2017 OCCULT BLOOD FECES CPT- 4: 83436 09/22/2017 SURESWAB(R), BACTERI AL VAGINOSIS/VAGINITIS CPT-4: 36947 09/22/2017 CULTURE, GENITAL CPT-4: 61900 09/22/2017 TDAP VACCINE 7 YRS/> IM CPT-4: 25200 11/30/2016 IMMUNIZATION ADMIN CPT- 4: 28210 11/30/2016 REMOVAL OF FOOT FORE IGN BODY CPT-4: 08016 11/29/2016 REMOVAL OF SKIN TAGS <W/15 CPT-4: 22498 10/05/2016 CULTURE, THROAT CPT-4: 68178 08/16/2016 PNEUMOCOCCAL VACC 13 AYSHA IM CPT-4: 03744 03/09/2016 IMMUNIZATION ADMIN CPT- 4: 69839 03/09/2016 THER/PROPH/DIAG INJ SC/IM CPT-4: 63017 12/11/2015 TRIAMCINOLONE ACET I NJ NOS CPT-4: [...] 1: 126/84 Code: 8480-6 BMI: 39.9 Code: 70033-1 Heart Rate 1: 80 bpm Height: 5'2" [...] 1: 126/82 Code: 8480-6 BMI: 40.6 Code: 93138-4 Heart Rate 1: 72 bpm Height: 5'2" [...] 1: 124/68 Code: 8480-6 BMI: 41.7 Code: 70961-0 Heart Rate 1: 66 bpm Height: 5'2" Respiratory Rate: 20 bpm SpO2: 98% Temperature: 36.2 (C ) / 97.2 (F) Weight: 228 lbs 09/22/2017 Blood Pressure 1: 142/80 Code: 8480-6 BMI: 41.3 Code: 30045-7 Heart Rate 1: 60 bpm Height: 5'2" Respiratory Rate: 20 bpm SpO2: 98% Temperature: 36.3 (C ) / 97.3 (F) Weight: 226 lbs 07/05/2017 Blood Pressure 1: 129/82 Code: 8480-6 BMI: 42.3 Code: 68764-7 Heart Rate 1: 60 bpm Height: 5'2" SpO2: 97% Temperature: 36.4 (C ) / 97.6 (F) Weight: 231 lbs 03/04/2017 Blood Pressure 1: 142/80 Code: 8480-6 BMI: 42.4 Code: 27343-0 Heart Rate 1: 74 bpm Height: 5'2" Respiratory Rate: 24 bpm SpO2: 97% Temperature: 36.4 (C ) / 97.6 (F) Weight: 232 lbs 02/02/2017 Blood Pressure 1: 146/82 Code: 8480-6 BMI: 42.4 Code: 92681-4 Heart Rate 1: 84 bpm Height: 5'2" Respiratory Rate: 20 bpm SpO2: 98% Temperature: 36.6 (C ) / 97.9 (F) Weight: 232 lbs 11/29/2016 Blood Pressure 1: 126/78 Code: 8480-6 Heart Rate 1: 76 bpm Height: 5'2" Respiratory Rate: 20 bpm SpO2: 96% Temperature: 36.9 (C ) / 98.4 (F) 11/16/2016 Blood Pressure 1: 136/94 Code: 8480-6 BMI: 42.6 Code: 90643-8 Heart Rate 1: 68 bpm Height: 5'2" Respiratory Rate: 20 bpm SpO2: 96% Temperature: 36.9 (C ) / 98.4 (F) Weight: 233 lbs 10/05/2016 Blood Pressure 1: 112/78 Code: 8480-6 BMI: 41.5 Code: 61222-6 Heart Rate 1: 80 bpm Height: 5'2" Respiratory Rate: 20 bpm SpO2: 97% Temperature: 36.8 (C ) / 98.2 (F) Weight: 227 lbs 09/06/2016 Blood Pressure 1: 126/82 Code: 8480-6 BMI: 42.4 Code: 15457-3 Heart Rate 1: 64 bpm Height: 5'2" Respiratory Rate: 20 bpm SpO2: 98% Temperature: 37.0 (C ) / 98.6 (F) Weight: 232 lbs 08/16/2016 Blood Pressure 1: 136/82 Code: 8480-6 BMI: 42.1 Code: 32177-8 Heart Rate 1: 72 bpm Height: 5'2" [...] 1: 144/80 Code: 8480-6 BMI: 40.4 Code: 28678-1 Heart Rate 1: 92 bpm Height: 5'2" Respiratory Rate: 20 bpm SpO2: 95% Temperature: 36.8 (C ) / 98.2 (F) Weight: 221 lbs 12/08/2015 Blood Pressure 1: 124/78 Code: 8480-6 Heart Rate 1: 108 bpm Height: 5'2" Respiratory Rate: 22 bpm SpO2: 95% Temperature: 36.2 (C ) / 97.2 (F) Weight: 12/01/2015 Blood Pressure 1: 124/78 Code: 8480-6 BMI: 40.4 Code: 58777-5 Heart Rate 1: 92 bpm Height: 5'2" [...] nev er checks. 08/08/2018 Patient states her [employer] never sent her glucometer supplies Quality chronic 08/08/2018 None Quality stable 08/08/2018 None Quality chronic. 07/06/2018 Patient is having problems with getting glucose meter from [employer] Quality chronic 07/06/2018 None Quality improving 07/06/2018 [...] disease 09/22/2017 grandfather with stroke. mother with OK. well woman exam (40-65 years) Contro l [...] Labs AST; 124 02/02/2017 None hypokalemia Quality box lidder rickey 02/02/2017 None hypokalemia Quality stab le. [...] sharp 08/16/2016 None cough Location in the th roat 06/23/2016 None cough Quality acute 06/23/2016 [...] Encounters Encounter Performer Loca tion Codes Date ([id number]) OFFICE/OUTPA TIENT VISIT EST Diagnosis: Acute upper respiratory infection, unspecified[ICD10: J06.9] Diagnosis: Generalized anxiety disorder[ICD10: F41.1] Diagnosis: Type 2 diabetes mellitus with hyperglycemia[ICD10: E11.65] Diagnosis: Encounter for therapeutic drug level monitoring[ICD10: Z51.81] Lisbeth Saskiakyler JARAMILLO [facility] CPT-4: 26587 10/31/2018 ([id number]) OFFICE/OUTPA TIENT VISIT EST Diagnosis: Type 2 diabetes mellitus with hyperglycemia[ICD10: E11.65] Diagnosis: Essential (primary) hypertension[ICD10: I10] Nirmala LUONG [facility] CPT-4: 18060 08/08/2018 ([id number]) OFFICE/OUTPA TIENT VISIT EST Diagnosis: Essential (primary) hypertension[ICD10: I10] Diagnosis: Type 2 diabetes mellitus with hyperglycemia[ICD10: E11.65] Diagnosis: Other fatigue[ICD10: R53.83] Nirmala JARAMILLO [facility] CPT-4: 78165 07/06/2018 ([id number]) OFFICE/OUTPA TIENT VISIT EST Diagnosis: Dizziness and giddiness[ICD10: R42] Diagnosis: Elevated blood-pressure reading, without diagnosis of hypertension[ICD10: R03.0] Shell JARAMILLO [facility] CPT-4: 92202 06/19/2018 ([id number]) OFFICE/OUTPA TIENT VISIT EST Diagnosis: Essential (primary) hypertension[ICD10: I10] Diagnosis: Dizziness and giddiness[ICD10: R42] Shlel JARAMILLO [facility] CPT-4: 50803 06/13/2018 ([id number]) NURSE/OUTPAT IENT VISIT EST Diagnosis: Influenza due to identified novel influenza A virus with other manifestations[ICD10: J09.X9] [facility] CPT[facility]: 37504 04/26/2018 OFFICE/OUTPATIENT SIT EST Diagnosis: Pain in throat[ICD10: R07.0] Diagnosis: Acute pharyngitis, unspecified[ICD10: J02.9] Shell JARAMILLO [facility] CPT-4: 32961 04/25/2018 ([id number]) OFFICE/OUTPA TIENT VISIT EST Diagnosis: Acute sinusitis, unspecified[ICD10: J01.90] Diagnosis: Paresthesia of skin[ICD10: R20.2] Nirmala LUONG [facility] CPT-4: 32305 04/14/2018 ([id number]) OFFICE/OUTPA TIENT VISIT EST Diagnosis: Pain in right leg[ICD10: M79.604] Diagnosis: Sciatica, right side[ICD10: M54.31] Nirmala LUONG [facility] CPT-4: 09012 01/31/2018 ([id number]) OFFICE/OUTPA TIENT VISIT EST Diagnosis: Pain in right leg[ICD10: M79.604] Lisbeth CABRERA DO [facility] CPT-4: 20416 01/23/2018 ([id number]) OFFICE/OUTPA TIENT VISIT EST Diagnosis: Acute bronchitis, unspecified[ICD10: J20.9] Lisbeth CABRERA DO [facility] CPT-4: 12127 11/10/2017 ([id number]) PREV VISIT E ST AGE 40-64 Diagnosis: [...] R74.8] Diagnosis: Nonalcoholic steatohepatitis (MOORE)[ICD10: K75.81] Lisbeth CABRERA [facility] CPT-4: 43896 09/22/2017 ([id number]) OFFICE/OUTPA TIENT VISIT EST Diagnosis: Acute sinusitis, unspecified[ICD10: J01.90] Lisbeth CABRERA [facility] CPT-4: 76688 07/05/2017 OFFICE/OUTPATIENT SIT EST Diagnosis: Pneumonia, unspecified organism[ICD10: J18.9] Lisbeth CABRERA DO [facility] CPT-4: 12903 03/04/2017 ([id number]) OFFICE/OUTPA TIENT VISIT EST Diagnosis: Polycystic ovarian syndrome[ICD10: E28.2] Diagnosis: Abnormal levels of other serum enzymes[ICD10: R74.8] Diagnosis: Nonalcoholic steatohepatitis (MOORE)[ICD10: K75.81] Diagnosis: Impaired glucose tolerance (oral)[ICD10: R73.02] Nirmala LUONG [facility] CPT-4: 64684 02/02/2017 ([id number]) OFFICE/OUTPA TIENT VISIT EST Diagnosis: VACCINE FOR TDAP[ICD10: Z23] Nirmala JARAMILLO [facility] CPT-4: 41105 11/30/2016 ([id number]) OFFICE/OUTPA TIENT VISIT EST Diagnosis: Cough[ICD10: R05] Diagnosis: Abnormal levels of other serum enzymes[ICD10: R74.8] Diagnosis: Family history of other endocrine, nutritional and metabolic diseases[ICD10: Z83.49] Nirmala JARAMILLO [facility] CPT-4: 75826 11/16/2016 ([id number]) OFFICE/OUTPA TIENT VISIT EST Diagnosis: Cough[ICD10: R05] Diagnosis: Other seasonal allergic rhinitis[ICD10: J30.2] Diagnosis: Abnormal levels of other serum enzymes[ICD10: R74.8] Nirmala LUONG [facility] CPT-4: 23250 09/06/2016 ([id number]) OFFICE/OUTPA TIENT VISIT EST Diagnosis: Cough[ICD10: R05] Diagnosis: Polycystic ovarian syndrome[ICD10: E28.2] Nirmala LUONG [facility] CPT-4: 29829 08/16/2016 ([id number]) OFFICE/OUTPA TIENT VISIT EST Diagnosis: Acute bronchitis, unspecified[ICD10: J20.9] Diagnosis: Acute upper respiratory infection, unspecified[ICD10: J06.9] [facility]: 57723 06/23/2016 ([id number]) OFFICE/OUTPA TIENT VISIT EST Diagnosis: PNEUMOCOCCAL VACCINE[ICD10: Z23] Nirmala JARAMILLO [facility] CPT-4: 80445 03/09/2016 ([id number]) OFFICE/OUTPA TIENT VISIT EST Diagnosis: Pneumonia, unspecified organism[ICD10: J18.9] Diagnosis: Polycystic ovarian syndrome[ICD10: E28.2] Diagnosis: Generalized anxiety disorder[ICD10: F41.1] Nirmala LUONG DO [facility] CPT-4: 92376 12/18/2015 ([id number]) OFFICE/OUTPA TIENT VISIT EST Diagnosis: Cough[ICD10: R05] Diagnosis: Acute bronchospasm[ICD10: J98.01] Nirmala LUONG DO [facility] CPT-4: 56020 12/11/2015 ([id number]) OFFICE/OUTPA TIENT VISIT EST Diagnosis: Pneumonia, unspecified organism[ICD10: J18.9] Ananya JARAMILLO DO [facility] CPT-4: 53164 12/08/2015 OFFICE/OUTPATIENT SIT NEW Diagnosis: Pneumonia, unspecified organism[ICD10: J18.9] Ananya JARAMILLO DO [facility] CPT-4: 66059 12/01/2015 Plan of Care Planned Activity Notes C odes Status Date Visit Diagnosis Plan: Type 2 diabetes me llitus with hyperglycemia Discussion: greg grimes and tristan dawson. coupon card given to patient. educated patient [...] ICD-10 : J06.9 10/31/2018 Appointment: Lisbeth Kruger [address] [place], [place] [id number] ACUTE ILLNESS 10/31/2018 Patient Education: Trulicity- OptimizeRX Coupon [phone] https://www.[employer]/samplemd/resources/getResource/61/b067r4l8-i225-0v73-ek Completed 10/31/2018 Patient Education: Xanax- OptimizeRX Coupon [id number] https://www.[employer]/resources/Language CloudResChaordixce/61/pp28859b-4094-73t2-kv Completed 10/31/2018 Patient Education: prednisone- OptimizeRX Coupon [phone] https://www.[employer]/resources/Medication Reviewce/61/741it773-9764-54w3-57 Completed 10/31/2018 Patient Education: ProAir HFA- OptimizeRX Coupon [phone] https://www.[employer]/resources/Vonvo.com/61/9an95476-57c4-5891-77 Completed 10/31/2018 Visit Diagnosis Plan: Essential (primary) hypertension Discussion: Stable ICD-9 : 401.9 ICD-10 : I10 08/08/2018 Visit Diagnosis Plan: Type 2 diabetes me llitus with hyperglycemia Discussion: Lab discussed Accuchecks henna ly Continue current meds Check CMP and HbA1C end of September then fwup ICD-9 : 250.02 ICD-10 : E11.65 08/08/2018 Appointment: [facility]irmala [facility]el[facility] [address] [facility] [facility] 08/08/2018 Visit Diagnosis Plan: [...] : R53.83 07/06/2018 Appointment: Nirmala Jaramillo WPtel: [address] [facility] FOLLOW UP 07/06/2018 Appointment: Nirmala Jaramillo WPtel: [address] 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 ICD-9 : 780.4 ICD-10 : R42 06/19/2018 Visit Diagnosis Plan: Essential (primary) hypertension Discussion: Increased lisinopril from 5 QD to 20 mg QD. Labs today- CBC, CMP, TSH, A1C. UA today- trace protein. hematuria (patient on period). ICD-9 : 401.9 ICD-10 : I10 06/19/2018 Appointment: Shell Vega [facility] FOLLOW UP 06/19/2018 Visit Diagnosis Plan: Dizziness [...] ICD-10 : I10 06/13/2018 Appointment: Shell Vega [facility] Anika [facility] ACUTE ILLNESS 06/13/2018 Appointment: Nirmala Jaramillo WPtel: [address] [facility] [place] FLU SWAB 04/26/2018 Visit Diagnosis Plan: Pain in throat Discussion: Rapid Strep A- negative Throat culture- pending. Will call patient with results. Prednisone 10 mg TID x 5 days. Supportive care- fluids, tylenol for pain, humidified air. ICD-9 : 784.1 ICD-10 : R07.0 04/25/2018 Appointment: Shell Vega [facility] [address] ACUTE ILLNESS 04/25/2018 Visit Plan: Saline nasal [...] prn. Tyle... 04/14/2018 Appointment: Nirmala Jaramillo WPtel: [address] [place] [address] ACUTE ILLNESS 04/14/2018 Patient Education: prednisone- OptimizeRX Coupon [phone] https://www.[employer]/resources/getResource/61/2vpi81nc-f7h4-16h2-m8 Completed 04/14/2018 Visit Diagnosis Plan: Pain in right leg Discussion: Check right tib/fib x-ray and start celebrex May need PT ICD-9 : 729.5 ICD-10 : M79.604 01/31/2018 Visit Diagnosis Plan: Sciatica, right side Discussion: Check L/S spine x-ray ICD-9 : 724.3 ICD-10 : M54.31 01/31/2018 Appointment: Nirmala Jaramillo WPtel: [address] [place] [address] FOLLOW UP 01/31/2018 Care Plan: X-RAY EXAM L-S SPINE 2/3 VWS LOINC : 18753-8 Pending 01/31/2018 Care Plan: X-RAY EXAM OF LOWER LEG LOINC : 88414-6 Pending 01/31/2018 Visit Diagnosis Plan: Pain in [...] ICD-10 : M79.604 01/23/2018 Appointment: Lisbeth Kruger [address] [place] [address] ACUTE ILLNESS 01/23/2018 Visit Diagnosis Plan: Acute [...] ICD-10 : J20.9 11/10/2017 Appointment: Lisbeth Kruger [address] [place] [address] ACUTE ILLNESS 11/10/2017 Patient Education: Patient Medication Summary Completed 11/10/2017 Care Plan: CHEST X-RAY 2VW FRONTAL&LATL LOINC : 85936-6 Pending 11/10/2017 Patient Education: Patient Medication Summary Completed 09/26/2017 Care Plan: A1C HPLC LO INC : 96169-2 Pending 09/26/2017 Visit Diagnosis Plan: Encounter for [...] R73.02 09/22/2017 Visit Diagnosis Plan: Encounter for [facility] adult medical examination without abnormal findings Discussion: fasting blood work ordered t o be obtained at [facility] in the next few days [...] ICD-10 : F41.1 09/22/2017 Appointment: Lisbeth Kruger [address] [id number] Annual Well Visit 09/22/2017 Patient Education: Patient [...] : J01.90 07/05/2017 Appointment: Lisbeth Kruger [address] [id number] ACUTE ILLNESS 07/05/2017 Patient Education: Patient Medication [...] : J18.9 03/04/2017 Appointment: Lisbeth Kruger [address] [id number] FOLLOW UP 03/04/2017 Patient Education: Patient Medication [...] : R74.8 02/02/2017 Appointment: Nirmala Jaramillo WPtel: [address] [place], [place] [phone] FOLLOW UP 02/02/2017 Patient Education: Patient Medication Summary Completed 02/02/2017 Care Plan: Referral Order SNOMED-CT : 900046135 Pending 02/02/2017 Patient Education: Patient Medication Summary Completed 01/28/2017 Care Plan: ACUTE HEPATITIS PANEL LOINC : 78210-5 Pending 01/28/2017 Patient Education: Patient Medication Summary Completed 01/26/2017 Care Plan: COMPREHEN METABOLIC PANEL LOINC : 41006-5 Pending 01/26/2017 Care Plan: A1C HPLC LO INC : 06845-8 Pending 01/26/2017 Appointment: Nirmala Jaramillo WPtel: [address] [place], [place] [phone] [place] INJECTION 11/30/2016 Referral: Sav Goff1 [facility] [address] Referral Initiated 11/30/2016 Patient Education: Patient [...] : S90.852A 11/29/2016 Appointment: Nirmala Jaramillo WPtel: [facility] ACUTE ILLNESS 11/29/2016 Patient Education: Patient Medication [...] : R05 11/16/2016 Appointment: Nirmala Jaramillo WPtel: [address] [place], [place] [phone] FOLLOW UP 11/16/2016 Patient Education: Patient Medication Summary Completed 11/16/2016 Care Plan: Referral Order SNOMED-CT : 129026969 Pending 11/16/2016 Appointment: Nirmala Jaramillo WPtel: [address] [place], [place] [phone] [place] RESCHEDULED 11/08/2016 Visit Diagnosis Plan: Other hypertrophic disorders of the skin Discussion: Irritated skin tags excised at base and then bases cauterized ICD-9 : 701.9 ICD-10 : L91.8 10/05/2016 Appointment: Nirmala Jaramillo WPtel: [address] [place], [place] [id number] [id number] confirmed-sp OFFICE SURGERY 10/05/2016 Patient Education: Patient Medication Summary Completed 10/05/2016 Appointment: Nirmala Jaramillo WPtel: [address] [place], [place] [phone] [place] Per doctor~sl 09/09 canceled due to [...] and singulair Add flonase If persists at [facility] then will see ENT Follow Up: 2 months ICD-9 : 786.2 ICD-10 : R05 09/06/2016 Appointment: Nirmala Jaramillo WPtel: [address] [place] [address] 09/02 lm~sl FOLLOW UP 09/06/2016 Patient Education: Patient Medication Summary Completed 09/06/2016 Patient Education: Patient Medication Summary Completed 08/18/2016 Care Plan: ACUTE HEPATITIS PANEL LOINC : 40128-6 Pending 08/18/2016 Care Plan: TICKBORNE DISEASE PANEL [...] : R05 08/16/2016 Appointment: Nirmala Jaramillo WPtel: [address] [place] [address] 08/13 confirmed `sl WORK IN 08/16/2016 Patient Education: Patient Medication Summary Completed 08/16/2016 Care Plan: MAMMOGRAM SCREENING Grand mother Br Ca in late LOINC : 93618-2 Pending 08/16/2016 Patient Education: Patient Medication Summary Completed 07/27/2016 Visit Diagnosis Plan: Acute bronchitis, unspecified Discussion: Rxs as above Borrow neb machine until home with hers if needed OTC meds reviewed Watch BSs closely Follow up if not improving ICD-9 : 466.0 ICD-10 : J20.9 06/23/2016 Appointment: Ananya Lopez [address] [place], [place] [address] ACUTE ILLNESS 06/23/2016 Patient Education: Patient Medication Summary Completed 06/23/2016 Appointment: Nirmala Jaramillo WPtel: [address] [place], [place] [phone] [place] INJECTION 03/09/2016 Patient Education: Patient Medication Summary Completed 03/09/2016 Appointment: [facility]irm[facility] Jaramillo [facility]Ptel: [address] [facility] [place] [facility]JE[facility] 02/16/2016 Visit Plan: Decrease Breo to 100/25 mcg 1p BID for another week Flu shot with Prevnar 13 next week if covered Refill metformin 12/18/2015 Appointment: Nirmala Jaramillo WPtel: [address] [facility] 12/16 confirmed`sl FOLLOW UP 12/18/2015 Patient [...] Recheck 1week 12/11/2015 Appointment: Nirmala Jaramillo WPtel: [address] [place], [place] [phone] ACUTE ILLNESS 12/11/2015 Patient Education: Patient Medication [...] cough, etc 12/08/2015 Appointment: [facility] [address] [facility] 12/04 Lm~sl....confirmed-sp FOLLOW UP 12/08/2015 Patient Education: [...] continuing to improve 12/01/2015 Appointment: Ananya Lopez [address] [place], [place] [phone] 11/30 lm ~sl NEW PATIENT 12/01/2015 Patient Education: Patient Medication Summary Completed 12/01/2015 Referral: Chan Chavez WPtel: [address] [place] Referral Completed Referral: Dhruv Lubin WPtel: [address] Referral Initiated Instructions Comment . CXR negative [...] etc . Finish levaquin or dered by [employer] Add above meds has nebulizer [...] improve . Finish levaquin or dered by [employer] Add above meds has nebulizer machine she [...]
--- OUTSIDE RECORDS SUMMARY | 2019-05-18 13:23 | XMS REPORT | CCD ---
Author Veronica Robles Organization NIRMALA JARAMILLO DO [facility] Address [address] [place] [address] Phone Unavailable Care Team Providers Care Geochemist Name Role Phone Nirmala Jaramillo D.O., PP Unavailable CCM Unavailable Summary Purpose Interface Exchange Insurance Providers Payer name Policy type / Coverage type Covered republican ID Effective Begin Date Effective End Date [employer]IG[employer] Commercial Insurance [id number] Unknown Family History Family History data not found Social History Social History Element Codes Description Effective Dates Marital status Unknown M arried 12/01/2015 Number of children Unknown 3 12/01/2015 Employment Unknown Curre ntly employed 12/01/[address]: 103095738 Never smoker 12/01/[address]: 410647817 Never drinks alcohol 12/01/2015 Allergies, Adverse Reactions, [...] Fill Instructions Xanax 0.25 mg tablet RxNorm: 337684 1 Tablet(s) PO as needed 10/31/2018 No Stop Date Active prednisone 20 mg tablet RxNorm: 453912 1 Tablet(s) PO BID 10/31/2018 11/04/2018 Active Zithromax Z-Ab 250 mg tablet RxNorm: 875152 Tablet(s) take as dir ected PO 10/31/2018 No Stop Date Active ProAir HFA 90 mcg/ac tuation aerosol inhaler RxNorm: 242263 2 Puff(s) INH Q4H as needed 10/31/2018 No Stop Date Active if insurance does not cover, please swit ch to ventolin. Trulicity 0.75 mg/0. 5 mL subcutaneous pen injector RxNorm: 6200435 1 Unit Dose SQ QW 10/31/2018 No Stop Date Active Ozempic 0.25 mg or 0 .5 mg (2 mg/1.5 mL) subcutaneous pen injector RxNorm: 9877313 0.5 Milligram(s) SQ QW 10/09/2018 10/30/2018 Inactive Ozempic 0.25 mg or 0 .5 mg (2 mg/1.5 mL) subcutaneous pen injector RxNorm: 2572433 0.5 Gram(s) SQ QW 10/05/2018 10/08/2018 Inactive lisinopril 40 mg tablet RxNorm: 328100 1 Tablet(s) PO QD 09/18/2018 12/16/2018 Active metformin 1,000 mg t ablet RxNorm: 901923 1 TABLET(S) PO QD 09/06/2018 03/04/2019 Active Trulicity 0.75 mg/0. 5 mL subcutaneous pen injector RxNorm: 3100302 0.75 Milligram(s) SQ QW Replaces Ozemic 08/28/2018 10/30/2018 Inactive replaces Ozempic Ozempic 0.25 mg or 0 .5 mg (2 mg/1.5 mL) subcutaneous pen injector RxNorm: 3864181 0.5 Milligram(s) SQ WEEKLY 08/28/2018 10/05/2018 Inactive metformin 1,000 mg t ablet RxNorm: 527602 1 Tablet(s) PO QD 08/23/2018 09/05/2018 Inactive Ozempic 0.25 mg or 0 .5 mg (2 mg/1.5 mL) subcutaneous pen injector RxNorm: 3307668 0.5 Milligram(s) SQ WEEKLY 08/03/2018 08/27/2018 Inactive amlodipine 5 mg tablet RxNorm: 297268 1 Tablet(s) PO QD 07/25/2018 11/21/2018 Active Lexapro 20 mg tablet RxNorm: 092861 1 Tablet(s) PO QD 07/10/2018 01/05/2019 Active lisinopril 40 mg tablet RxNorm: 811789 1 Tablet(s) PO QD 07/10/2018 09/07/2018 Inactive amlodipine 5 mg tablet RxNorm: 646519 1 Tablet(s) PO QD 06/22/2018 07/20/2018 Inactive lisinopril 40 mg tablet RxNorm: 680354 1 Tablet(s) PO QD 06/22/2018 07/09/2018 Inactive lisinopril 20 mg tablet RxNorm: 770542 1 Tablet(s) PO QD 06/19/2018 06/21/2018 Inactive lisinopril 5 mg tablet RxNorm: 169241 1 Tablet(s) PO QD 06/13/2018 06/18/2018 Inactive metformin 1,000 mg t ablet RxNorm: 868824 Tablet(s) TABLET(S) 1 TABLET(S) PO QD 06/08/2018 08/22/2018 In active Tamiflu 75 mg capsule RxNorm: 905989 1 Capsule(s) PO BID 04/26/2018 04/30/2018 Inactive Tamiflu 75 mg capsule RxNorm: 890715 1 Capsule(s) PO BID 04/26/2018 04/25/2018 Inactive prednisone 10 mg tablet RxNorm: 844327 1 Tablet(s) PO TID 04/25/2018 04/29/2018 Inactive prednisone 20 mg tablet RxNorm: 532854 1 Tablet(s) PO BID 04/14/2018 04/20/2018 Inactive Augmentin 500 mg-125 mg tablet RxNorm: 157331 1 Tablet(s) PO BID 04/14/2018 04/20/2018 Inactive metformin 1,000 mg t ablet RxNorm: 606929 TABLET(S) 1 TABLET(S) PO QD 03/09/2018 06/06/2018 Inactive celecoxib 200 mg cap lalito RxNorm: 044276 1 Capsule(s) PO BID for diana n 01/31/2018 03/01/2018 Inactive metformin 1,000 mg t ablet RxNorm: 883730 1 Tablet(s) PO BID 01/23/2018 No Stop Date Active Medrol (Ab) 4 mg ta blets in a dose pack RxNorm: 956422 Tablet(s) PO take as directed 01/23/2018 01/30/2018 Inactive Lexapro 20 mg tablet RxNorm: 129736 Tablet(s) 1 TABLET(S) PO QD 01/23/2018 06/21/2018 Inactive Lexapro 20 mg tablet RxNorm: 777406 Tablet(s) 1 TABLET(S) PO QD 11/03/2017 01/22/2018 Inactive metformin 1,000 mg t ablet RxNorm: 486064 1 Tablet(s) PO BID 09/27/2017 01/22/2018 Inactive Lexapro 20 mg tablet RxNorm: 526445 Tablet(s) 1 TABLET(S) PO QD 09/22/2017 11/02/2017 Inactive metformin 1,000 mg t ablet RxNorm: 934760 Tablet(s) 1 TABLET(S) PO QD 09/22/2017 09/26/2017 Inactive Xanax 0.25 mg tablet RxNorm: 822410 1 Tablet(s) PO as needed 09/22/2017 10/30/2018 Inactive metformin 1,000 mg t ablet RxNorm: 375502 Tablet(s) 1 TABLET(S) PO QD NEEDS UPDATED LABS 09/06/2017 09/20/2017 Inactive metformin 1,000 mg t ablet RxNorm: 082517 1 TABLET(S) PO QD NEE DS UPDATED LABS 08/24/2017 09/05/2017 In active metformin 1,000 mg t ablet RxNorm: 618664 1 Tablet(s) PO QD Nee ds updated labs 08/08/2017 08/22/2017 In active Lexapro 20 mg tablet RxNorm: 651616 1 TABLET(S) PO QD 07/17/2017 09/21/2017 Inactive pseudoephedrine 30 m g tablet RxNorm: 3540222 1-2 Tablet(s) PO Q6H 07/05/2017 06/12/2018 Inactive Augmentin 875 mg-125 mg tablet RxNorm: 392268 1 Tablet(s) PO BID 07/05/2017 07/14/2017 Inactive metformin 1,000 mg t ablet RxNorm: 775525 1 Tablet(s) PO QD Nee ds updated labs 07/04/2017 08/08/2017 In active metformin 1,000 mg t ablet RxNorm: 476438 1 Tablet(s) PO QD Nee ds updated labs 05/30/2017 07/04/2017 In active Levaquin 750 mg tablet RxNorm: 600069 1 Tablet(s) PO QD 03/04/2017 03/10/2017 Inactive ProAir HFA 90 mcg/ac tuation aerosol inhaler RxNorm: 659530 2 Puff(s) INH Q4H as needed 03/04/2017 07/04/2017 Inactive if insurance does not cover, please swit ch to lita. Tamiflu 75 mg capsule RxNorm: 859951 1 Capsule(s) PO QD 03/04/2017 03/10/2017 Inactive metformin 1,000 mg t ablet RxNorm: 961839 1 Tablet(s) PO QD 02/15/2017 05/15/2017 Inactive Lexapro 20 mg tablet RxNorm: 231601 1 Tablet(s) PO QD 01/17/2017 11/03/2017 Inactive cephalexin 500 mg ca psule RxNorm: 239873 1 Capsule(s) PO TID 11/29/2016 12/08/2016 Inactive pantoprazole 40 mg t ablet,delayed release RxNorm: 247384 1 Tablet(s) PO QD 11/16/2016 03/15/2017 In active metformin 1,000 mg t ablet RxNorm: 947075 TAKE 1 TABLET BY MOUT H EVERY DAY 10/10/2016 02/15/2017 In active Flonase Allergy Reli ef 50 mcg/actuation nasal spray,suspension RxNorm: 3102137 2 [place] NASAL QHS 09/06/2016 11/15/2016 Inactive Singulair 10 mg tablet RxNorm: 213257 1 Tablet(s) PO QHS 09/06/2016 11/15/2016 Inactive Singulair 10 mg tablet RxNorm: 121991 1 Tablet(s) PO QHS 08/12/2016 09/05/2016 Inactive ProAir HFA 90 mcg/ac tuation aerosol inhaler RxNorm: 660045 1 Puff(s) INH Q4H as needed 08/12/2016 08/15/2016 Inactive Medrol (Ab) 4 mg ta blets in a dose pack RxNorm: 899607 Tablet(s) PO As Direc kenny 07/29/2016 08/15/2016 In active Lexapro 20 mg tablet RxNorm: 562535 1 Tablet(s) PO QD 07/06/2016 01/17/2017 Inactive doxycycline hyclate 100 mg capsule RxNorm: 5468165 1 Capsule(s) PO BID 06/24/2016 06/23/2016 In active doxycycline hyclate 100 mg capsule RxNorm: 1198215 1 Capsule(s) PO BID 06/24/2016 07/03/2016 In active ProAir HFA 90 mcg/ac tuation aerosol inhaler RxNorm: 542974 1 Puff(s) INH Q4H as needed 06/23/2016 08/11/2016 Inactive prednisone 20 mg tablet RxNorm: 664287 1 Tablet(s) PO BID 06/23/2016 06/27/2016 Inactive metformin 1,000 mg t ablet RxNorm: 074737 1 Tablet(s) PO QD 12/18/2015 06/14/2016 Inactive Lexapro 20 mg tablet RxNorm: 509031 1 Tablet(s) PO QD 12/18/2015 07/06/2016 Inactive prednisone 20 mg tablet RxNorm: 285732 Take 3 tabs PO QD x 3 days, then 2 tabs PO QD x 3 days, then 1 tab PO QD x 3 days 12/01/2015 12/10/2015 Inactive albuterol sulfate 2. 5 mg/3 mL (0.083 %) solution for nebulization RxNorm: 480519 3 Milliliter(s) INH Q4H as needed 07/04/2017 Inactive Singulair 10 mg tablet RxNorm: 987096 1 Tablet(s) PO QHS No Start Date 08/11/2016 Inactive Breo Ellipta 100 mcg -25 mcg/dose powder for inhalation RxNorm: 8090099 1 Puff(s) INH QD No Start Date 02/01/2017 Inactive Zyrtec 10 mg tablet RxNorm: 6898547 1 Tablet(s) PO QAM No Start Date 11/15/2016 Inactive Xanax 0.25 mg tablet RxNorm: 599655 1 Tablet(s) PO as needed No Start Date 09/21/2017 Inactive metformin 1,000 mg t ablet RxNorm: 923962 1 Tablet(s) PO QD No Start Date 12/17/2015 Inactive Singulair 10 mg tablet RxNorm: 076102 1 Tablet(s) PO QHS No Start Date 11/15/2016 Inactive metformin 1,000 mg t ablet RxNorm: 944278 1 Tablet(s) PO QD No Start Date 02/14/2017 Inactive metformin 1,000 mg t ablet RxNorm: 978524 1 Tablet(s) PO BID No Start Date 09/26/2017 Inactive Trulicity 0.75 mg/0. 5 mL subcutaneous pen injector RxNorm: 8974621 0.75 Milligram(s) SQ QW No Start Date 08/27/2018 Inactive Medrol (Ab) 4 mg ta blets in a dose pack RxNorm: 455862 Tablet(s) PO As Direc kenny No Start Date 07/28/2016 Inactive Lexapro 20 mg tablet RxNorm: 551356 1 Tablet(s) PO QD No Start Date 12/17/2015 Inactive Lexapro 20 mg tablet RxNorm: 584786 1 Tablet(s) PO QD No Start Date [...] flu swab cough 04/25/2018 sore throat 04/14/2018 [facility] treated her with Zpack and finished yesterday however she wasn't checked for flu or strep follow up 01/31/2018 lower leg pain 01/23/2018 right leg cough 11/10/2017 patient was seen at [facility] and given Levaquin and 5 day [...] and prednisone follow up 12/08/2015 [address] [place] ~generic 12/01/2015 [facility] Results Observation Observation Code Item Item Code Result Date VIRAL HEPATITIS PROFILE #2 48672 Hep A IgM Non-Reactive 06/21/19 19 VIRAL HEPATITIS PROFILE #2 25842 Hep B Core IgM Non-Reactive 06/20/2018 VIRAL HEPATITIS PROFILE #2 31083 Hepatitis C Ab Non-Reactive 06/20/2018 VIRAL HEPATITIS PROFILE #2 03858 Hep Bs Ag Non-Reactive 06/21/19 19 MEAN GLUC 2470736 Calc M alexandra Gluc 194 mg/dL 06/19/2018 COMPREHENSIVE METABOLIC 38267 AST 94 U/L 06/19/2018 COMPREHENSIVE METABOLIC 20445 ALT 160 U/L 06/19/2018 COMPREHENSIVE METABOLIC 45294 BUN 9 mg/dL 06/19/2018 COMPREHENSIVE METABOLIC 06475 ALBUMIN 4.6 g/dL 06/19/2018 COMPREHENSIVE METABOLIC 30455 CHLORIDE 101 mmol/L 06/19/2018 COMPREHENSIVE METABOLIC 89486 Bili Total 0.9 mg/dL 06/19/2018 COMPREHENSIVE METABOLIC 38897 ALK PHOS 64 U/L 06/19/2018 COMPREHENSIVE METABOLIC 34838 SODIUM 136 mmol/L 06/19/2018 COMPREHENSIVE METABOLIC 15016 CREATININE 0.58 mg/dL 06/19/2018 COMPREHENSIVE METABOLIC 01873 CALCIUM 10.3 mg/dL 06/19/2018 COMPREHENSIVE METABOLIC 80513 POTASSIUM 3.7 mmol/L 06/19/2018 COMPREHENSIVE METABOLIC 29618 Total Protein 7.1 g/dL 06/19/2018 COMPREHENSIVE METABOLIC 11342 Glucose 187 mg/dL 06/19/2018 COMPREHENSIVE METABOLIC 14923 Bicarbonate 26 mmol/L 06/19/2018 COMPREHENSIVE METABOLIC 43741 AGAP 9 mmol/L 06/19/2018 GLYCOSYLATED HEMOGLOBIN TEST 68837 Hgb A1c 25731-4 8.4 % 06/19/2018 COMPLETE BLOOD COUNT 3967868 WBC 6.2 10e9/L 06/19/2018 COMPLETE BLOOD COUNT 4918912 RBC 4.70 10e12/L 9 COMPLETE BLOOD COUNT 2881044 HEMOGLOBIN 13.4 g/dL 06/19/2018 COMPLETE BLOOD COUNT 6206385 HEMATOCRIT 39.9 % 06/19/2018 COMPLETE BLOOD COUNT 2324157 MCV 84.9 fL 06/19/2018 COMPLETE BLOOD COUNT 1372973 MCH 28.5 pg 06/19/2018 COMPLETE BLOOD COUNT 6274536 MCHC 33.6 g/dL 06/19/2018 COMPLETE BLOOD COUNT 3494450 PLATELET COUNT 252 10e9/L 06/19/2018 COMPLETE BLOOD COUNT 1613228 Mean Plt Volume 12.2 fL 06/19/2018 COMPLETE BLOOD COUNT 3580700 Neut Auto 53.9 % 06/19/2018 COMPLETE BLOOD COUNT 8467110 Lymph Auto 35.2 % 06/19/2018 COMPLETE BLOOD COUNT 6548316 [place] Auto 7.1 % 06/19/2018 COMPLETE BLOOD COUNT 0951376 RDW 14.1 % 06/19/2018 COMPLETE BLOOD COUNT 5420155 Eos Auto 3.2 % 06/19/2018 COMPLETE BLOOD COUNT 4472166 Baso Auto 0.6 % 06/19/2018 COMPLETE BLOOD COUNT 0241983 Neutrophil Abs 3.34 10e9/L 06/19/2018 COMPLETE BLOOD COUNT 7044276 Lymphocyte Abs 2.18 10e9/L 06/19/2018 COMPLETE BLOOD COUNT 3305374 Monocyte Abs 0.44 10e9/L 06/19/2018 COMPLETE BLOOD COUNT 0729061 Eosinophil Abs 0.20 10e9/L 06/19/2018 COMPLETE BLOOD COUNT 1081123 RDW-SD 42.7 fL 06/19/2018 COMPLETE BLOOD COUNT 8057829 Basophil Abs 0.04 10e9/L 06/19/2018 THYROID STIMULATING HORMONE 66322 TSH 1.976 uIU/mL 9 GFR CALC 9496850 GFR Non Afr Amr >60 mL/min 06/19/2018 GFR CALC 1997495 GFR Afr Amr >60 mL/min 06/19/2018 SURESWAB(R), BACTERIAL VAGINOSIS/VAGINITIS 81883 BV CATEGORY: TNP 09/27/2017 SURESWAB(R), BACTERIAL VAGINOSIS/VAGINITIS 08183 LACTOBACILLUS SPECIES DNR 09/27/2017 SURESWAB(R), BACTERIAL VAGINOSIS/VAGINITIS 85032 ATOPOBIUM VAGINAE DNR 09/27/2017 SURESWAB(R), BACTERIAL VAGINOSIS/VAGINITIS 95927 MEGASPHAERA SPECIES DN R 09/27/2017 SURESWAB(R), BACTERIAL VAGINOSIS/VAGINITIS 97698 GARDNERELLA VAGINALIS DNR 09/27/2017 SURESWAB(R), BACTERIAL VAGINOSIS/VAGINITIS 76927 SURESWAB(R) TRICHOMONAS VAGINALIS RNA, QL TMA TNP 09/27/2017 SURESWAB(R), BACTERIAL VAGINOSIS/VAGINITIS 24370 C. ALBICANS, DNA TNP 09/27/2017 SURESWAB(R), BACTERIAL VAGINOSIS/VAGINITIS 90272 C. GLABRATA, DNA DNR 09/27/2017 SURESWAB(R), BACTERIAL VAGINOSIS/VAGINITIS 78370 C. TROPICALIS, DNA DNR 09/27/2017 SURESWAB(R), BACTERIAL VAGINOSIS/VAGINITIS 84880 C. PARAPSILOSIS, DNA D NR 09/27/2017 THINPREP TIS AND HPV mRNA E6/E7 62717 REPORT STATUS: DNR 09/27/2017 THINPREP TIS AND HPV mRNA E6/E7 80867 CLINICAL INFORMATION: 09/27/2017 THINPREP TIS AND HPV mRNA E6/E7 45632 LMP: 09/02/2017 09/27/2017 THINPREP TIS AND HPV mRNA E6/E7 43348 PREV. PAP: 09/27/2017 THINPREP TIS AND HPV mRNA E6/E7 05081 PREV. BX: 09/27/2017 THINPREP TIS AND HPV mRNA E6/E7 37642 SOURCE: [employer] 09/27/2017 THINPREP TIS AND HPV mRNA E6/E7 06781 STATEMENT OF ADEQUACY: 09/27/2017 THINPREP TIS AND HPV mRNA E6/E7 11246 GENERAL CATEGORIZATION: DNR 09/27/2017 THINPREP TIS AND HPV mRNA E6/E7 64250 INTERPRETATION/RESULT: 09/27/2017 THINPREP TIS AND HPV mRNA E6/E7 07703 INFECTION: DNR 09/27/2017 THINPREP TIS AND HPV mRNA E6/E7 18070 COMMENT: 09/27/2017 THINPREP TIS AND HPV mRNA E6/E7 00391 HISTORICAL MANUSCRIPTS CURATOR: 09/27/2017 THINPREP TIS AND HPV mRNA E6/E7 98028 REVIEW HISTORICAL MANUSCRIPTS CURATOR: DNR 09/27/2017 THINPREP TIS AND HPV mRNA E6/E7 42508 PATHOLOGIST: DNR 09/27/2017 THINPREP TIS AND HPV mRNA E6/E7 05369 COMMENT 09/27/2017 THINPREP TIS AND HPV mRNA E6/E7 96707 HPV mRNA E6/E7 Not Detected 09/27/2017 CULTURE, GENITAL 82323 C ULTURE, GENITAL SEE NOTE 09/25/2017 CULTURE, THROAT 18556 CU LTURE, THROAT SEE NOTE 08/19/2016 Review [...] Procedures Procedure Codes Date ROUTINE VENIPUNCTURE CPT-4: 62541 06/19/2018 COMPLETE CBC W/AUTO DIFF WBC CPT-4: 87597 06/19/2018 COMPREHEN METABOLIC PANEL CPT-4: 10891 06/19/2018 A1C HPLC CPT-4: 57154 06/19/2018 ASSAY THYROID STIM H ORMONE CPT-4: 51413 06/19/2018 URINALYSIS NONAUTO W /O SCOPE CPT-4: 87966 06/19/2018 ACUTE HEPATITIS PANEL CPT-4: 38067 06/19/2018 INFLUENZA ASSAY W/OPTIC CPT-4: 39495 04/26/2018 STREP A ASSAY W/OPTIC CPT-4: 51745 04/25/2018 THROAT CULTURE CPT-4: 01597 04/25/2018 CEFTRIAXONE SODIUM I NJECTION CPT-4: J0696 11/10/2017 DEXAMETHASONE SODIUM PHOS CPT-4: J1100 11/10/2017 THER/PROPH/DIAG INJ SC/IM CPT-4: 51269 11/10/2017 TRIAMCINOLONE ACET I NJ NOS CPT-4: J3301 11/10/2017 OCCULT BLOOD FECES CPT- 4: 35726 09/22/2017 SURESWAB(R), BACTERI AL VAGINOSIS/VAGINITIS CPT-4: 81661 09/22/2017 CULTURE, GENITAL CPT-4: 92266 09/22/2017 TDAP VACCINE 7 YRS/> IM CPT-4: 47189 11/30/2016 IMMUNIZATION ADMIN CPT- 4: 68053 11/30/2016 REMOVAL OF FOOT FORE IGN BODY CPT-4: 34200 11/29/2016 REMOVAL OF SKIN TAGS <W/15 CPT-4: 33638 10/05/2016 CULTURE, THROAT CPT-4: 72220 08/16/2016 PNEUMOCOCCAL VACC 13 AYSHA IM CPT-4: 80340 03/09/2016 IMMUNIZATION ADMIN CPT- 4: 63341 03/09/2016 THER/PROPH/DIAG INJ SC/IM CPT-4: 10136 12/11/2015 TRIAMCINOLONE ACET I NJ NOS CPT-4: [...] 1: 126/84 Code: 8480-6 BMI: 39.9 Code: 32559-6 Heart Rate 1: 80 bpm Height: 5'2" [...] 1: 126/82 Code: 8480-6 BMI: 40.6 Code: 81567-9 Heart Rate 1: 72 bpm Height: 5'2" [...] 1: 124/68 Code: 8480-6 BMI: 41.7 Code: 11594-8 Heart Rate 1: 66 bpm Height: 5'2" Respiratory Rate: 20 bpm SpO2: 98% Temperature: 36.2 (C ) / 97.2 (F) Weight: 228 lbs 09/22/2017 Blood Pressure 1: 142/80 Code: 8480-6 BMI: 41.3 Code: 90268-5 Heart Rate 1: 60 bpm Height: 5'2" Respiratory Rate: 20 bpm SpO2: 98% Temperature: 36.3 (C ) / 97.3 (F) Weight: 226 lbs 07/05/2017 Blood Pressure 1: 129/82 Code: 8480-6 BMI: 42.3 Code: 91843-2 Heart Rate 1: 60 bpm Height: 5'2" SpO2: 97% Temperature: 36.4 (C ) / 97.6 (F) Weight: 231 lbs 03/04/2017 Blood Pressure 1: 142/80 Code: 8480-6 BMI: 42.4 Code: 90224-6 Heart Rate 1: 74 bpm Height: 5'2" Respiratory Rate: 24 bpm SpO2: 97% Temperature: 36.4 (C ) / 97.6 (F) Weight: 232 lbs 02/02/2017 Blood Pressure 1: 146/82 Code: 8480-6 BMI: 42.4 Code: 40398-1 Heart Rate 1: 84 bpm Height: 5'2" Respiratory Rate: 20 bpm SpO2: 98% Temperature: 36.6 (C ) / 97.9 (F) Weight: 232 lbs 11/29/2016 Blood Pressure 1: 126/78 Code: 8480-6 Heart Rate 1: 76 bpm Height: 5'2" Respiratory Rate: 20 bpm SpO2: 96% Temperature: 36.9 (C ) / 98.4 (F) 11/16/2016 Blood Pressure 1: 136/94 Code: 8480-6 BMI: 42.6 Code: 16849-4 Heart Rate 1: 68 bpm Height: 5'2" Respiratory Rate: 20 bpm SpO2: 96% Temperature: 36.9 (C ) / 98.4 (F) Weight: 233 lbs 10/05/2016 Blood Pressure 1: 112/78 Code: 8480-6 BMI: 41.5 Code: 99265-7 Heart Rate 1: 80 bpm Height: 5'2" Respiratory Rate: 20 bpm SpO2: 97% Temperature: 36.8 (C ) / 98.2 (F) Weight: 227 lbs 09/06/2016 Blood Pressure 1: 126/82 Code: 8480-6 BMI: 42.4 Code: 82502-8 Heart Rate 1: 64 bpm Height: 5'2" Respiratory Rate: 20 bpm SpO2: 98% Temperature: 37.0 (C ) / 98.6 (F) Weight: 232 lbs 08/16/2016 Blood Pressure 1: 136/82 Code: 8480-6 BMI: 42.1 Code: 67868-0 Heart Rate 1: 72 bpm Height: 5'2" [...] 1: 144/80 Code: 8480-6 BMI: 40.4 Code: 68094-7 Heart Rate 1: 92 bpm Height: 5'2" Respiratory Rate: 20 bpm SpO2: 95% Temperature: 36.8 (C ) / 98.2 (F) Weight: 221 lbs 12/08/2015 Blood Pressure 1: 124/78 Code: 8480-6 Heart Rate 1: 108 bpm Height: 5'2" Respiratory Rate: 22 bpm SpO2: 95% Temperature: 36.2 (C ) / 97.2 (F) Weight: 12/01/2015 Blood Pressure 1: 124/78 Code: 8480-6 BMI: 40.4 Code: 57538-9 Heart Rate 1: 92 bpm Height: 5'2" [...] nev er checks. 08/08/2018 Patient states her [employer] never sent her glucometer supplies Quality chronic 08/08/2018 None Quality stable 08/08/2018 None Quality chronic. 07/06/2018 Patient is having problems with getting glucose meter from [employer] Quality chronic 07/06/2018 None Quality improving 07/06/2018 [...] disease 09/22/2017 grandfather with stroke. mother with [place]. 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 [...] Encounters Encounter Performer Loca tion Codes Date ([id number]) OFFICE/OUTPA TIENT VISIT EST Diagnosis: Acute upper respiratory infection, unspecified[ICD10: J06.9] Diagnosis: Generalized anxiety disorder[ICD10: F41.1] Diagnosis: Type 2 diabetes mellitus with hyperglycemia[ICD10: E11.65] Diagnosis: Encounter for therapeutic drug level monitoring[ICD10: Z51.81] Lisbeth Saskiakyler JARAMILLO [employer] CPT-4: 91515 10/31/2018 ([id number]) OFFICE/OUTPA TIENT VISIT EST Diagnosis: Type 2 diabetes mellitus with hyperglycemia[ICD10: E11.65] Diagnosis: Essential (primary) hypertension[ICD10: I10] Nirmala LUONG [employer] CPT-4: 32861 08/08/2018 ([id number]) OFFICE/OUTPA TIENT VISIT EST Diagnosis: Essential (primary) hypertension[ICD10: I10] Diagnosis: Type 2 diabetes mellitus with hyperglycemia[ICD10: E11.65] Diagnosis: Other fatigue[ICD10: R53.83] Nirmala JARAMILLO [facility] CPT-4: 41102 07/06/2018 ([id number]) OFFICE/OUTPA TIENT VISIT EST Diagnosis: Dizziness and giddiness[ICD10: R42] Diagnosis: Elevated blood-pressure reading, without diagnosis of hypertension[ICD10: R03.0] Shell JARAMILLO [facility] CPT-4: 31717 06/19/2018 ([id number]) OFFICE/OUTPA TIENT VISIT EST Diagnosis: Essential (primary) hypertension[ICD10: I10] Diagnosis: Dizziness and giddiness[ICD10: R42] Shell JARAMILLO [facility] CPT-4: 91262 06/13/2018 ([id number]) NURSE/OUTPAT IENT VISIT EST Diagnosis: Influenza due to identified novel influenza A virus with other manifestations[ICD10: J09.X9] [facility] CPT-[facility]: 97555 04/26/2018 OFFICE/OUTPATIENT SIT EST Diagnosis: Pain in throat[ICD10: R07.0] Diagnosis: Acute pharyngitis, unspecified[ICD10: J02.9] Shell JARAMILLO [facility] CPT-4: 61108 04/25/2018 ([id number]) OFFICE/OUTPA TIENT VISIT EST Diagnosis: Acute sinusitis, unspecified[ICD10: J01.90] Diagnosis: Paresthesia of skin[ICD10: R20.2] Nirmala LUONG [facility] CPT-4: 40439 04/14/2018 ([id number]) OFFICE/OUTPA TIENT VISIT EST Diagnosis: Pain in right leg[ICD10: M79.604] Diagnosis: Sciatica, right side[ICD10: M54.31] Nirmala LUONG [facility] CPT-4: 54087 01/31/2018 ([id number]) OFFICE/OUTPA TIENT VISIT EST Diagnosis: Pain in right leg[ICD10: M79.604] Lisbeth CABRERA DO [facility] CPT-4: 08387 01/23/2018 ([id number]) OFFICE/OUTPA TIENT VISIT EST Diagnosis: Acute bronchitis, unspecified[ICD10: J20.9] Lisbeth CABRERA DO [facility] CPT-4: 78174 11/10/2017 ([id number]) PREV VISIT E ST AGE 40-64 Diagnosis: [...] Diagnosis: Nonalcoholic steatohepatitis (MOORE)[ICD10: K75.81] Lisbeth CABRERA [employer] CPT-4: 68757 09/22/2017 ([id number]) OFFICE/OUTPA TIENT VISIT EST Diagnosis: Acute sinusitis, unspecified[ICD10: J01.90] Lisbeth CABRERA [employer] CPT-4: 07617 07/05/2017 OFFICE/OUTPATIENT SIT EST Diagnosis: Pneumonia, unspecified organism[ICD10: J18.9] Lisbeth CABRERA DO [facility] CPT-4: 57288 03/04/2017 ([id number]) OFFICE/OUTPA TIENT VISIT EST Diagnosis: Polycystic ovarian syndrome[ICD10: E28.2] Diagnosis: Abnormal levels of other serum enzymes[ICD10: R74.8] Diagnosis: Nonalcoholic steatohepatitis (MOORE)[ICD10: K75.81] Diagnosis: Impaired glucose tolerance (oral)[ICD10: R73.02] Nirmala LUONG [facility] CPT-4: 46957 02/02/2017 ([id number]) OFFICE/OUTPA TIENT VISIT EST Diagnosis: VACCINE FOR TDAP[ICD10: Z23] Nirmala JARAMILLO [facility] CPT-4: 16515 11/30/2016 ([id number]) OFFICE/OUTPA TIENT VISIT EST Diagnosis: Cough[ICD10: R05] Diagnosis: Abnormal levels of other serum enzymes[ICD10: R74.8] Diagnosis: Family history of other endocrine, nutritional and metabolic diseases[ICD10: Z83.49] Nirmala JARAMILLO [facility] CPT-4: 81992 11/16/2016 ([id number]) OFFICE/OUTPA TIENT VISIT EST Diagnosis: Cough[ICD10: R05] Diagnosis: Other seasonal allergic rhinitis[ICD10: J30.2] Diagnosis: Abnormal levels of other serum enzymes[ICD10: R74.8] Nirmala LUONG [facility] CPT-4: 75345 09/06/2016 ([id number]) OFFICE/OUTPA TIENT VISIT EST Diagnosis: Cough[ICD10: R05] Diagnosis: Polycystic ovarian syndrome[ICD10: E28.2] Nirmala LUONG [facility] CPT-4: 98891 08/16/2016 ([id number]) OFFICE/OUTPA TIENT VISIT EST Diagnosis: Acute bronchitis, unspecified[ICD10: J20.9] Diagnosis: Acute upper respiratory infection, unspecified[ICD10: J06.9] [facility] CPT-[facility]: 40620 06/23/2016 ([id number]) OFFICE/OUTPA TIENT VISIT EST Diagnosis: PNEUMOCOCCAL VACCINE[ICD10: Z23] Nirmala JARAMILLO [facility] CPT-4: 70275 03/09/2016 ([id number]) OFFICE/OUTPA TIENT VISIT EST Diagnosis: Pneumonia, unspecified organism[ICD10: J18.9] Diagnosis: Polycystic ovarian syndrome[ICD10: E28.2] Diagnosis: Generalized anxiety disorder[ICD10: F41.1] Nirmala LUONG DO [place] CPT-4: 34789 12/18/2015 ([id number]) OFFICE/OUTPA TIENT VISIT EST Diagnosis: Cough[ICD10: R05] Diagnosis: Acute bronchospasm[ICD10: J98.01] Nirmala LUONG DO [place] CPT-4: 39872 12/11/2015 ([id number]) OFFICE/OUTPA TIENT VISIT EST Diagnosis: Pneumonia, unspecified organism[ICD10: J18.9] Ananya JARAMILLO DO [place] CPT-4: 24306 12/08/2015 OFFICE/OUTPATIENT SIT NEW Diagnosis: Pneumonia, unspecified organism[ICD10: J18.9] Ananya JARAMILLO DO [facility] CPT-4: 49516 12/01/2015 Plan of Care Planned Activity Notes [...] ICD-10 : J06.9 10/31/2018 Appointment: Lisbeth Kruger [address] [place], [place] [id number] ILLNESS 10/31/2018 Patient Education: Trulicity- OptimizeRX Coupon [id number] https://www.Liiiike/samplemd/resources/getResource/61/m783l6x6-u092-3p68-mp Completed 10/31/2018 Patient Education: Xanax- OptimizeRX Coupon [id number] https://www.Liiiike/CastTV/resources/S3BubbleResTastemadece/61/og64226y-4542-87a7-mu Completed 10/31/2018 Patient Education: prednisone- OptimizeRX Coupon [phone] https://www.Liiiike/CastTV/resources/Cloverce/61/415qy976-1707-89b5-78 Completed 10/31/2018 Patient Education: ProAir HFA- OptimizeRX Coupon [phone] https://www.Liiiike/CastTV/resources/[employer]/61/4iq59256-66l4-2730-44 Completed 10/31/2018 Visit Diagnosis Plan: Essential (primary) hypertension Discussion: Stable ICD-9 : 401.9 ICD-10 : I10 08/08/2018 Visit Diagnosis Plan: Type 2 diabetes me llitus with hyperglycemia Discussion: Lab discussed Accuchecks henna ly Continue current meds Check CMP and HbA1C end of September then fwup ICD-9 : 250.02 ICD-10 : E11.65 08/08/2018 Appointment: Nirmala [facility]el[facility] [facility] [facility] 08/08/2018 Visit Diagnosis Plan: Essential [...] R53.83 07/06/2018 Appointment: Nirmala Jaramillo WPtel: [address] [facility] FOLLOW UP 07/06/2018 Appointment: Nirmala Jaramillo WPtel: [address] [facility] [place] Consult 06/22/2018 Patient Education: lisinopril- OptimizeRX Coupon [phone] https://www.Liiiike/samplemd/resources/getResource/61/834c51b0-bdq2-5149-vt Completed 06/22/2018 Visit Diagnosis Plan: Dizziness and giddiness Discussion: Recommend scheduling appt with environmental protection geologist. ICD-9 : 780.4 ICD-10 : R42 06/19/2018 Visit Diagnosis Plan: Essential (primary) hypertension Discussion: Increased lisinopril from 5 QD to 20 mg QD. Labs today- CBC, CMP, TSH, A1C. UA today- trace protein. hematuria (patient on period). ICD-9 : 401.9 ICD-10 : I10 06/19/2018 Appointment: Shell Vega [facility] FOLLOW UP 06/19/2018 Visit Diagnosis Plan: Dizziness [...] ICD-10 : I10 06/13/2018 Appointment: Shell Vega [facility] ACUTE ILLNESS 06/13/2018 Appointment: Nirmala Jaramillo WPtel: [phone] [facility] [place] FLU SWAB 04/26/2018 Visit Diagnosis Plan: Pain in throat Discussion: Rapid Strep A- negative Throat culture- pending. Will call patient with results. Prednisone 10 mg TID x 5 days. Supportive care- fluids, tylenol for pain, humidified air. ICD-9 : 784.1 ICD-10 : R07.0 04/25/2018 Appointment: Shell Vega [facility] [address] ACUTE ILLNESS 04/25/2018 Visit Plan: Saline [...] prn. Tyle... 04/14/2018 Appointment: Nirmala Jaramillo WPtel: [address] [place] [address] ACUTE ILLNESS 04/14/2018 Patient Education: prednisone- OptimizeRX Coupon [phone] https://www.Liiiike/CastTV/resources/getResource/61/8uwq86zy-i8v2-09p0-k4 Completed 04/14/2018 Visit Diagnosis Plan: Pain in right leg Discussion: Check right tib/fib x-ray and start celebrex May need PT ICD-9 : 729.5 ICD-10 : M79.604 01/31/2018 Visit Diagnosis Plan: Sciatica, right side Discussion: Check L/S spine x-ray ICD-9 : 724.3 ICD-10 : M54.31 01/31/2018 Appointment: Nirmala Jaramillo WPtel: [address] [place] [address] FOLLOW UP 01/31/2018 Care Plan: X-RAY EXAM L-S SPINE 2/3 VWS LOINC : 41669-7 Pending 01/31/2018 Care Plan: X-RAY EXAM OF LOWER LEG LOINC : 18407-5 Pending 01/31/2018 Visit Diagnosis Plan: Pain in [...] ICD-10 : M79.604 01/23/2018 Appointment: Lisbeth Kruger [address] [place] [address] ACUTE ILLNESS 01/23/2018 Visit Diagnosis Plan: Acute [...] ICD-10 : J20.9 11/10/2017 Appointment: Lisbeth Kruger [address] [place] [address] ACUTE ILLNESS 11/10/2017 Patient Education: Patient Medication Summary Completed 11/10/2017 Care Plan: CHEST X-RAY 2VW FRONTAL&LATL LOINC : 33554-1 Pending 11/10/2017 Patient Education: Patient Medication Summary Completed 09/26/2017 Care Plan: A1C HPLC LO INC : 16703-6 Pending 09/26/2017 Visit Diagnosis Plan: Encounter for [...] R73.02 09/22/2017 Visit Diagnosis Plan: Encounter for [facility] adult medical examination without abnormal findings Discussion: fasting blood work ordered t o be obtained at [facility] in the next few days [...] : F41.1 09/22/2017 Appointment: Lisbeth Kruger [address] [id number] Annual Well Visit 09/22/2017 Patient Education: Patient [...] : J01.90 07/05/2017 Appointment: Lisbeth Kruger [address] [id number] ACUTE ILLNESS 07/05/2017 Patient Education: Patient Medication [...] : J18.9 03/04/2017 Appointment: Lisbeth Kruger [address] [id number] FOLLOW UP 03/04/2017 Patient Education: Patient Medication [...] : R74.8 02/02/2017 Appointment: Nirmala Jaramillo WPtel: [address] [place], [place] [phone] FOLLOW UP 02/02/2017 Patient Education: Patient Medication Summary Completed 02/02/2017 Care Plan: Referral Order SNOMED-CT : 393025813 Pending 02/02/2017 Patient Education: Patient Medication Summary Completed 01/28/2017 Care Plan: ACUTE HEPATITIS PANEL LOINC : 57034-2 Pending 01/28/2017 Patient Education: Patient Medication Summary Completed 01/26/2017 Care Plan: COMPREHEN METABOLIC PANEL LOINC : 15034-1 Pending 01/26/2017 Care Plan: A1C HPLC LO INC : 31297-6 Pending 01/26/2017 Appointment: Nirmala Jaramillo WPtel: [address] [place], [place] [phone] [place] INJECTION 11/30/2016 Referral: Sav Goff1 [facility] [address] Referral Initiated 11/30/2016 Patient Education: Patient [...] : S90.852A 11/29/2016 Appointment: Nirmala Jaramillo WPtel: [facility] ACUTE ILLNESS 11/29/2016 Patient Education: Patient Medication [...] : R05 11/16/2016 Appointment: Nirmala Jaramillo WPtel: [address] [place], [place] [phone] FOLLOW UP 11/16/2016 Patient Education: Patient Medication Summary Completed 11/16/2016 Care Plan: Referral Order SNOMED-CT : 674767705 Pending 11/16/2016 Appointment: Nirmala Jaramillo WPtel: [address] [place], [place] [phone] [place] RESCHEDULED 11/08/2016 Visit Diagnosis Plan: Other hypertrophic disorders of the skin Discussion: Irritated skin tags excised at base and then bases cauterized ICD-9 : 701.9 ICD-10 : L91.8 10/05/2016 Appointment: Nirmala Jaramillo WPtel: [address] [place], [place] [phone] [id number] confirmed-sp OFFICE SURGERY 10/05/2016 Patient Education: Patient Medication Summary Completed 10/05/2016 Appointment: Nirmala Jaramillo WPtel: [address] [place], [place] [phone] [place] Per doctor~sl 09/09 canceled due to [...] and singulair Add flonase If persists at [facility] then will see ENT Follow Up: 2 months ICD-9 : 786.2 ICD-10 : R05 09/06/2016 Appointment: Nirmala Jaramillo WPtel: [address] [place] [address] 09/02 lm~sl FOLLOW UP 09/06/2016 Patient Education: Patient Medication Summary Completed 09/06/2016 Patient Education: Patient Medication Summary Completed 08/18/2016 Care Plan: ACUTE HEPATITIS PANEL LOINC : 95925-9 Pending 08/18/2016 Care Plan: TICKBORNE DISEASE PANEL [...] : R05 08/16/2016 Appointment: Nirmala Jaramillo WPtel: [address] [place] [address] 08/13 confirmed `sl WORK IN 08/16/2016 Patient Education: Patient Medication Summary Completed 08/16/2016 Care Plan: MAMMOGRAM SCREENING Grand mother Br Ca in late LOINC : 55121-4 Pending 08/16/2016 Patient Education: Patient Medication Summary Completed 07/27/2016 Visit Diagnosis Plan: Acute bronchitis, unspecified Discussion: Rxs as above Borrow neb machine until home with hers if needed OTC meds reviewed Watch BSs closely Follow up if not improving ICD-9 : 466.0 ICD-10 : J20.9 06/23/2016 Appointment: Ananya Lopez [address] [place], [place] [phone] ACUTE ILLNESS 06/23/2016 Patient Education: Patient Medication Summary Completed 06/23/2016 Appointment: Nirmala Jaramillo WPtel: [address] [place], [place] [phone] [place] INJECTION 03/09/2016 Patient Education: Patient Medication Summary Completed 03/09/2016 Appointment: [facility]irm[facility]illo [facility]el[facility] [facility] [place] [facility]JE[facility] 02/16/2016 Visit Plan: Decrease Breo to 100/25 mcg 1p BID for another week Flu shot with Prevnar 13 next week if covered Refill metformin 12/18/2015 Appointment: Nirmala Jaramillo WPtel[phone] [facility] 12/16 confirmed`sl FOLLOW UP 12/18/2015 Patient Education: [...] Recheck 1week 12/11/2015 Appointment: Nirmala Jaramillo WPtel: [address] [place], [place] [phone] ACUTE ILLNESS 12/11/2015 Patient Education: Patient Medication [...] [facility] 12/04 Lm~sl....confirmed-sp FOLLOW UP 12/08/2015 Patient Education: [...] continuing to improve 12/01/2015 Appointment: Ananya Lopez [address] [place], [place] [phone] 11/30 lm ~sl NEW PATIENT 12/01/2015 Patient Education: Patient Medication Summary Completed 12/01/2015 Referral: Chan Chavez WPtel: [address] [place] Referral Completed Referral: Dhruv Lubin WPtel: [address] Referral Initiated Instructions Comment . CXR negative [...] improve . Finish levaquin or dered by [employer] Add above meds has nebulizer machine she [...]
--- OUTSIDE RECORDS SUMMARY | 2019-05-18 13:24 | XMS REPORT | CCD ---
Author Author Veronica Lopez Organization NIRMALA JARAMILLO DO [facility] Address [address] [place] [address] Phone Unavailable Care Team Providers Care Pluck Trimmer Name Role Phone Nirmala Jaramillo D.O., PP Unavailable CCM Unavailable Summary Purpose Interface Exchange Insurance Providers Payer name Policy type / Coverage type Covered constitution party ID Effective Begin Date Effective End Date [employer] Commercial Insurance [id number] Unknown Family History Family History data not found Social History Social History Element Codes Description Effective Dates Marital status Unknown M arried 12/01/2015 Number of children Unknown 3 12/01/2015 Employment Unknown Curre ntly employed 12/01/[address]: 800013409 Never smoker 12/01/[address]: 522014569 Never drinks alcohol 12/01/2015 Allergies, Adverse Reactions, Alerts Substance Reaction Codes Entered Date Inactivated Date Status * NO KNOWN FOOD JEREL RGIES Unknown 12/01/2015 No Inactive Date Active * NO KNOWN ENVIRONME NTAL ALLERGIES Unknown 12/01/2015 No Inactive Date Active _ reaction, Unknown 12/01/2015 No In active Date Active Past Medical History Illness Codes Condition Status Onset Date Resolved Date Essential (primary) hypertension ICD-9: 401.9 ICD-10: I10 Active 06/13/2018 Unknown Type 2 diabetes kevin itus with hyperglycemia ICD-9: 250.02 ICD-10: E11.65 Active 07/06/2018 Unknown Other fatigue ICD-9: 780.79 ICD-10: R53.83 [...] ICD-9: V76.11 ICD-10: Z12.31 Active 09/22/2017 Unknown Generalized anxiety disorder ICD-9: 308.0 ICD-10: F41.1 Active 12/17/2015 Unknown Impaired glucose anne erance (oral) ICD-9: [...] ICD-9: 477.9 ICD-10: J30.2 Active 09/06/2016 Unknown Acute upper respirat ory infection, unspecified ICD-9: 465.9 ICD-10: J06.9 Active 06/23/2016 Unknown PNEUMOCOCCAL VACCINE ICD-9: V03.82 ICD-10: Z23 Active 03/08/2016 Unknown Acute bronchospasm ICD- 9: 519.11 ICD-10: J98.01 Active 12/10/2015 Unknown Problems Condition Codes Effectiv e Dates Condition Status Essential (primary) hypertension ICD-9: 401.9 ICD-10: I10 06/13/2018 Active Type 2 diabetes kevin itus with hyperglycemia ICD-9: 250.02 ICD-10: E11.65 07/06/2018 Active Other fatigue ICD-9: 780.79 ICD-10: R53.83 [...] breast ICD-9: V76.11 ICD-10: Z12.31 09/22/2017 Active Generalized anxiety disorder ICD-9: 308.0 ICD-10: F41.1 12/17/2015 Active Impaired glucose anne erance (oral) ICD-9: [...] rhinitis ICD-9: 477.9 ICD-10: J30.2 09/06/2016 Active Acute upper respirat ory infection, unspecified ICD-9: 465.9 ICD-10: J06.9 06/23/2016 Active PNEUMOCOCCAL VACCINE ICD-9: V03.82 ICD-10: Z23 03/08/2016 Active Acute bronchospasm ICD- 9: 519.11 ICD-10: J98.01 12/10/2015 Active Medications Medication Codes Instruc tions Start Date Stop Date Sta tus Fill Instructions Ozempic 0.25 mg or 0 .5 mg (2 mg/1.5 mL) subcutaneous pen injector RxNorm: 5263416 0.5 Milligram(s) SQ QW 10/09/2018 No Stop Date Active Ozempic 0.25 mg or 0 .5 mg (2 mg/1.5 mL) subcutaneous pen injector RxNorm: 4657505 0.5 Gram(s) SQ QW 10/05/2018 10/08/2018 Inactive lisinopril 40 mg tablet RxNorm: 867708 1 Tablet(s) PO QD 09/18/2018 12/16/2018 Active metformin 1,000 mg t ablet RxNorm: 533511 1 TABLET(S) PO QD 09/06/2018 03/04/2019 Active Trulicity 0.75 mg/0. 5 mL subcutaneous pen injector RxNorm: 1932540 0.75 Milligram(s) SQ QW Replaces Ozemic 08/28/2018 No Stop Date Active replaces Ozempic Ozempic 0.25 mg or 0 .5 mg (2 mg/1.5 mL) subcutaneous pen injector RxNorm: 5799046 0.5 Milligram(s) SQ WEEKLY 08/28/2018 10/05/2018 Inactive metformin 1,000 mg t ablet RxNorm: 301554 1 Tablet(s) PO QD 08/23/2018 09/05/2018 Inactive Ozempic 0.25 mg or 0 .5 mg (2 mg/1.5 mL) subcutaneous pen injector RxNorm: 9595339 0.5 Milligram(s) SQ WEEKLY 08/03/2018 08/27/2018 Inactive amlodipine 5 mg tablet RxNorm: 733364 1 Tablet(s) PO QD 07/25/2018 11/21/2018 Active Lexapro 20 mg tablet RxNorm: 096049 1 Tablet(s) PO QD 07/10/2018 01/05/2019 Active lisinopril 40 mg tablet RxNorm: 269968 1 Tablet(s) PO QD 07/10/2018 09/07/2018 Inactive amlodipine 5 mg tablet RxNorm: 515658 1 Tablet(s) PO QD 06/22/2018 07/20/2018 Inactive lisinopril 40 mg tablet RxNorm: 023872 1 Tablet(s) PO QD 06/22/2018 07/09/2018 Inactive lisinopril 20 mg tablet RxNorm: 767876 1 Tablet(s) PO QD 06/19/2018 06/21/2018 Inactive lisinopril 5 mg tablet RxNorm: 077473 1 Tablet(s) PO QD 06/13/2018 06/18/2018 Inactive metformin 1,000 mg t ablet RxNorm: 411412 Tablet(s) TABLET(S) 1 TABLET(S) PO QD 06/08/2018 08/22/2018 In active Tamiflu 75 mg capsule RxNorm: 674736 1 Capsule(s) PO BID 04/26/2018 04/30/2018 Inactive Tamiflu 75 mg capsule RxNorm: 794589 1 Capsule(s) PO BID 04/26/2018 04/25/2018 Inactive prednisone 10 mg tablet RxNorm: 509167 1 Tablet(s) PO TID 04/25/2018 04/29/2018 Inactive prednisone 20 mg tablet RxNorm: 317244 1 Tablet(s) PO BID 04/14/2018 04/20/2018 Inactive Augmentin 500 mg-125 mg tablet RxNorm: 193541 1 Tablet(s) PO BID 04/14/2018 04/20/2018 Inactive metformin 1,000 mg t ablet RxNorm: 805746 TABLET(S) 1 TABLET(S) PO QD 03/09/2018 06/06/2018 Inactive celecoxib 200 mg cap lalito RxNorm: 903766 1 Capsule(s) PO BID for diana n 01/31/2018 03/01/2018 Inactive metformin 1,000 mg t ablet RxNorm: 257841 1 Tablet(s) PO BID 01/23/2018 No Stop Date Active Medrol (Ab) 4 mg ta blets in a dose pack RxNorm: 911602 Tablet(s) PO take as directed 01/23/2018 01/30/2018 Inactive Lexapro 20 mg tablet RxNorm: 494703 Tablet(s) 1 TABLET(S) PO QD 01/23/2018 06/21/2018 Inactive Lexapro 20 mg tablet RxNorm: 802722 Tablet(s) 1 TABLET(S) PO QD 11/03/2017 01/22/2018 Inactive metformin 1,000 mg t ablet RxNorm: 560101 1 Tablet(s) PO BID 09/27/2017 01/22/2018 Inactive Xanax 0.25 mg tablet RxNorm: 545931 1 Tablet(s) PO as needed 09/22/2017 No Stop Date Active Lexapro 20 mg tablet RxNorm: 184530 Tablet(s) 1 TABLET(S) PO QD 09/22/2017 11/02/2017 Inactive metformin 1,000 mg t ablet RxNorm: 769943 Tablet(s) 1 TABLET(S) PO QD 09/22/2017 09/26/2017 Inactive metformin 1,000 mg t ablet RxNorm: 261173 Tablet(s) 1 TABLET(S) PO QD NEEDS UPDATED LABS 09/06/2017 09/20/2017 Inactive metformin 1,000 mg t ablet RxNorm: 991504 1 TABLET(S) PO QD NEE DS UPDATED LABS 08/24/2017 09/05/2017 In active metformin 1,000 mg t ablet RxNorm: 154035 1 Tablet(s) PO QD Nee ds updated labs 08/08/2017 08/22/2017 In active Lexapro 20 mg tablet RxNorm: 158157 1 TABLET(S) PO QD 07/17/2017 09/21/2017 Inactive pseudoephedrine 30 m g tablet RxNorm: 5836516 1-2 Tablet(s) PO Q6H 07/05/2017 06/12/2018 Inactive Augmentin 875 mg-125 mg tablet RxNorm: 952629 1 Tablet(s) PO BID 07/05/2017 07/14/2017 Inactive metformin 1,000 mg t ablet RxNorm: 954722 1 Tablet(s) PO QD Nee ds updated labs 07/04/2017 08/08/2017 In active metformin 1,000 mg t ablet RxNorm: 954292 1 Tablet(s) PO QD Nee ds updated labs 05/30/2017 07/04/2017 In active Levaquin 750 mg tablet RxNorm: 203445 1 Tablet(s) PO QD 03/04/2017 03/10/2017 Inactive ProAir HFA 90 mcg/ac tuation aerosol inhaler RxNorm: 552645 2 Puff(s) INH Q4H as needed 03/04/2017 07/04/2017 Inactive if insurance does not cover, please swit ch to [facility]. Tamiflu 75 mg capsule RxNorm: 884502 1 Capsule(s) PO QD 03/04/2017 03/10/2017 Inactive metformin 1,000 mg t ablet RxNorm: 242501 1 Tablet(s) PO QD 02/15/2017 05/15/2017 Inactive Lexapro 20 mg tablet RxNorm: 484674 1 Tablet(s) PO QD 01/17/2017 11/03/2017 Inactive cephalexin 500 mg ca psule RxNorm: 053526 1 Capsule(s) PO TID 11/29/2016 12/08/2016 Inactive pantoprazole 40 mg t ablet,delayed release RxNorm: 775873 1 Tablet(s) PO QD 11/16/2016 03/15/2017 In active metformin 1,000 mg t ablet RxNorm: 294037 TAKE 1 TABLET BY MOUT H EVERY DAY 10/10/2016 02/15/2017 In active Flonase Allergy Reli ef 50 mcg/actuation nasal spray,suspension RxNorm: 5921948 2 Barry NASAL QHS 09/06/2016 11/15/2016 Inactive Singulair 10 mg tablet RxNorm: 395674 1 Tablet(s) PO QHS 09/06/2016 11/15/2016 Inactive Singulair 10 mg tablet RxNorm: 545385 1 Tablet(s) PO QHS 08/12/2016 09/05/2016 Inactive ProAir HFA 90 mcg/ac tuation aerosol inhaler RxNorm: 556505 1 Puff(s) INH Q4H as needed 08/12/2016 08/15/2016 Inactive Medrol (Ab) 4 mg ta blets in a dose pack RxNorm: 308949 Tablet(s) PO As Direc kenny 07/29/2016 08/15/2016 In active Lexapro 20 mg tablet RxNorm: 360030 1 Tablet(s) PO QD 07/06/2016 01/17/2017 Inactive doxycycline hyclate 100 mg capsule RxNorm: 3092748 1 Capsule(s) PO BID 06/24/2016 06/23/2016 In active doxycycline hyclate 100 mg capsule RxNorm: 3066971 1 Capsule(s) PO BID 06/24/2016 07/03/2016 In active ProAir HFA 90 mcg/ac tuation aerosol inhaler RxNorm: 598059 1 Puff(s) INH Q4H as needed 06/23/2016 08/11/2016 Inactive prednisone 20 mg tablet RxNorm: 097520 1 Tablet(s) PO BID 06/23/2016 06/27/2016 Inactive metformin 1,000 mg t ablet RxNorm: 481184 1 Tablet(s) PO QD 12/18/2015 06/14/2016 Inactive Lexapro 20 mg tablet RxNorm: 727499 1 Tablet(s) PO QD 12/18/2015 07/06/2016 Inactive prednisone 20 mg tablet RxNorm: 091987 Take 3 tabs PO QD x 3 days, then 2 tabs PO QD x 3 days, then 1 tab PO QD x 3 days 12/01/2015 12/10/2015 Inactive albuterol sulfate 2. 5 mg/3 mL (0.083 %) solution for nebulization RxNorm: 735549 3 Milliliter(s) INH Q4H as needed 07/04/2017 Inactive Singulair 10 mg tablet RxNorm: 906657 1 Tablet(s) PO QHS No Start Date 08/11/2016 Inactive Breo Ellipta 100 mcg -25 mcg/dose powder for inhalation RxNorm: 9693589 1 Puff(s) INH QD No Start Date 02/01/2017 Inactive Zyrtec 10 mg tablet RxNorm: 1272391 1 Tablet(s) PO QAM No Start Date 11/15/2016 Inactive Xanax 0.25 mg tablet RxNorm: 951519 1 Tablet(s) PO as needed No Start Date 09/21/2017 Inactive metformin 1,000 mg t ablet RxNorm: 288032 1 Tablet(s) PO QD No Start Date 12/17/2015 Inactive Singulair 10 mg tablet RxNorm: 040375 1 Tablet(s) PO QHS No Start Date 11/15/2016 Inactive metformin 1,000 mg t ablet RxNorm: 160952 1 Tablet(s) PO QD No Start Date 02/14/2017 Inactive metformin 1,000 mg t ablet RxNorm: 903073 1 Tablet(s) PO BID No Start Date 09/26/2017 Inactive Trulicity 0.75 mg/0. 5 mL subcutaneous pen injector RxNorm: 0089674 0.75 Milligram(s) SQ QW No Start Date 08/27/2018 Inactive Medrol (Ab) 4 mg ta blets in a dose pack RxNorm: 719221 Tablet(s) PO As Direc kenny No Start Date 07/28/2016 Inactive Lexapro 20 mg tablet RxNorm: 741447 1 Tablet(s) PO QD No Start Date 12/17/2015 Inactive Lexapro 20 mg tablet RxNorm: 411219 1 Tablet(s) PO QD No Start Date 07/09/2018 Inactive Medication Administered No Medication Administered data Immunizations Vaccine Codes Date Status Tetanus, Diptheria, Pertussis CVX: 115 11/30/2016 completed Pneumococcal CVX: 133 completed Assessments Condition Codes Effectiv e Dates Essential (primary) hypertension ICD -10: I10 ICD-9: 401.9 08/08/2018 Type 2 diabetes mellitus with hyperglycemia ICD-10: E11.65 ICD-9: 250.02 08/08/2018 Other fatigue ICD-10: R53.83 ICD-9: 780.79 [...] n ICD- 10: Z12.11 ICD-9: V76.51 09/22/2017 Generalized anxiety disorder ICD-10: F41.1 ICD-9: 308.0 09/22/2017 Encounter for screening mammogram for ma [...] rhinitis ICD -10: J30.2 ICD-9: 477.9 09/06/2016 Acute upper respiratory infection, unspecified ICD-10: J06.9 ICD-9: 465.9 07/27/2016 PNEUMOCOCCAL VACCINE ICD-10: Z23 ICD-9: V03.82 03/09/2016 Acute bronchospasm ICD-10: J98.01 ICD-9: 519.11 12/11/2015 Reason For Visit Reason For Visit Effective Dates Notes follow up 08/08/2018 follow up 07/06/2018 fatigue 06/19/2018 dizziness 06/13/2018 sta rted yesterday at 2:30 lab draw 04/26/2018 here for flu swab cough 04/25/2018 sore throat 04/14/2018 [facility] treated her with Zpack and finished yesterday however she wasn't checked for flu or strep follow up 01/31/2018 lower leg pain 01/23/2018 right leg cough 11/10/2017 patient was seen at [facility] and given Levaquin and 5 day [...] and prednisone follow up 12/08/2015 1 W teller ~generic 12/01/2015 [facility] Results Observation Observation Code Item Item Code Result Date VIRAL HEPATITIS PROFILE #2 65439 Hep A IgM Non-Reactive 06/21/19 19 VIRAL HEPATITIS PROFILE #2 81251 Hep B Core IgM Non-Reactive 06/20/2018 VIRAL HEPATITIS PROFILE #2 55028 Hepatitis C Ab Non-Reactive 06/20/2018 VIRAL HEPATITIS PROFILE #2 02500 Hep Bs Ag Non-Reactive 06/21/19 19 MEAN GLUC 0195897 Calc M alexandra Gluc 194 mg/dL 06/19/2018 COMPREHENSIVE METABOLIC 39212 AST 94 U/L 06/19/2018 COMPREHENSIVE METABOLIC 87202 ALT 160 U/L 06/19/2018 COMPREHENSIVE METABOLIC 37093 BUN 9 mg/dL 06/19/2018 COMPREHENSIVE METABOLIC 98835 ALBUMIN 4.6 g/dL 06/19/2018 COMPREHENSIVE METABOLIC 50450 CHLORIDE 101 mmol/L 06/19/2018 COMPREHENSIVE METABOLIC 43458 Bili Total 0.9 mg/dL 06/19/2018 COMPREHENSIVE METABOLIC 10061 ALK PHOS 64 U/L 06/19/2018 COMPREHENSIVE METABOLIC 02168 SODIUM 136 mmol/L 06/19/2018 COMPREHENSIVE METABOLIC 56634 CREATININE 0.58 mg/dL 06/19/2018 COMPREHENSIVE METABOLIC 51397 CALCIUM 10.3 mg/dL 06/19/2018 COMPREHENSIVE METABOLIC 32826 POTASSIUM 3.7 mmol/L 06/19/2018 COMPREHENSIVE METABOLIC 21858 Total Protein 7.1 g/dL 06/19/2018 COMPREHENSIVE METABOLIC 10598 Glucose 187 mg/dL 06/19/2018 COMPREHENSIVE METABOLIC 24782 Bicarbonate 26 mmol/L 06/19/2018 COMPREHENSIVE METABOLIC 47136 AGAP 9 mmol/L 06/19/2018 GLYCOSYLATED HEMOGLOBIN TEST 71750 Hgb A1c 83185-1 8.4 % 06/19/2018 COMPLETE BLOOD COUNT 1434223 WBC 6.2 10e9/L 06/19/2018 COMPLETE BLOOD COUNT 6730824 RBC 4.70 10e12/L 9 COMPLETE BLOOD COUNT 8032873 HEMOGLOBIN 13.4 g/dL 06/19/2018 COMPLETE BLOOD COUNT 4686628 HEMATOCRIT 39.9 % 06/19/2018 COMPLETE BLOOD COUNT 1282605 MCV 84.9 fL 06/19/2018 COMPLETE BLOOD COUNT 3403724 MCH 28.5 pg 06/19/2018 COMPLETE BLOOD COUNT 3070545 MCHC 33.6 g/dL 06/19/2018 COMPLETE BLOOD COUNT 8105506 PLATELET COUNT 252 10e9/L 06/19/2018 COMPLETE BLOOD COUNT 6666420 Mean Plt Volume 12.2 fL 06/19/2018 COMPLETE BLOOD COUNT 3657077 Neut Auto 53.9 % 06/19/2018 COMPLETE BLOOD COUNT 5689374 Lymph Auto 35.2 % 06/19/2018 COMPLETE BLOOD COUNT 1604822 [place] Auto 7.1 % 06/19/2018 COMPLETE BLOOD COUNT 5845491 RDW 14.1 % 06/19/2018 COMPLETE BLOOD COUNT 5400340 Eos Auto 3.2 % 06/19/2018 COMPLETE BLOOD COUNT 8278619 Baso Auto 0.6 % 06/19/2018 COMPLETE BLOOD COUNT 4597103 Neutrophil Abs 3.34 10e9/L 06/19/2018 COMPLETE BLOOD COUNT 0338645 Lymphocyte Abs 2.18 10e9/L 06/19/2018 COMPLETE BLOOD COUNT 9737919 Monocyte Abs 0.44 10e9/L 06/19/2018 COMPLETE BLOOD COUNT 4589310 Eosinophil Abs 0.20 10e9/L 06/19/2018 COMPLETE BLOOD COUNT 2138362 RDW-SD 42.7 fL 06/19/2018 COMPLETE BLOOD COUNT 4321170 Basophil Abs 0.04 10e9/L 06/19/2018 THYROID STIMULATING HORMONE 61603 TSH 1.976 uIU/mL 9 GFR CALC 0042796 GFR Non Afr Amr >60 mL/min 06/19/2018 GFR CALC 6447059 GFR Afr Amr >60 mL/min 06/19/2018 SURESWAB(R), BACTERIAL VAGINOSIS/VAGINITIS 98578 BV CATEGORY: TNP 09/27/2017 SURESWAB(R), BACTERIAL VAGINOSIS/VAGINITIS 77077 LACTOBACILLUS SPECIES DNR 09/27/2017 SURESWAB(R), BACTERIAL VAGINOSIS/VAGINITIS 88913 ATOPOBIUM VAGINAE DNR 09/27/2017 SURESWAB(R), BACTERIAL VAGINOSIS/VAGINITIS 67499 MEGASPHAERA SPECIES DN R 09/27/2017 SURESWAB(R), BACTERIAL VAGINOSIS/VAGINITIS 87969 GARDNERELLA VAGINALIS DNR 09/27/2017 SURESWAB(R), BACTERIAL VAGINOSIS/VAGINITIS 08104 SURESWAB(R) TRICHOMONAS VAGINALIS RNA, QL TMA TNP 09/27/2017 SURESWAB(R), BACTERIAL VAGINOSIS/VAGINITIS 38752 C. ALBICANS, DNA TNP 09/27/2017 SURESWAB(R), BACTERIAL VAGINOSIS/VAGINITIS 77275 C. GLABRATA, DNA DNR 09/27/2017 SURESWAB(R), BACTERIAL VAGINOSIS/VAGINITIS 05451 C. TROPICALIS, DNA DNR 09/27/2017 SURESWAB(R), BACTERIAL VAGINOSIS/VAGINITIS 06099 C. PARAPSILOSIS, DNA D NR 09/27/2017 THINPREP TIS AND HPV mRNA E6/E7 63087 REPORT STATUS: DNR 09/27/2017 THINPREP TIS AND HPV mRNA E6/E7 36575 CLINICAL INFORMATION: 09/27/2017 THINPREP TIS AND HPV mRNA E6/E7 11043 LMP: 09/02/2017 09/27/2017 THINPREP TIS AND HPV mRNA E6/E7 04795 PREV. PAP: 09/27/2017 THINPREP TIS AND HPV mRNA E6/E7 77511 PREV. BX: 09/27/2017 THINPREP TIS AND HPV mRNA E6/E7 83713 SOURCE: Cervix 09/27/2017 THINPREP TIS AND HPV mRNA E6/E7 57387 STATEMENT OF ADEQUACY: 09/27/2017 THINPREP TIS AND HPV mRNA E6/E7 63879 GENERAL CATEGORIZATION: DNR 09/27/2017 THINPREP TIS AND HPV mRNA E6/E7 94798 INTERPRETATION/RESULT: 09/27/2017 THINPREP TIS AND HPV mRNA E6/E7 11337 INFECTION: DNR 09/27/2017 THINPREP TIS AND HPV mRNA E6/E7 83012 COMMENT: 09/27/2017 THINPREP TIS AND HPV mRNA E6/E7 05279 AIRLINE OPERATIONS AGENT: 09/27/2017 THINPREP TIS AND HPV mRNA E6/E7 43912 REVIEW AIRLINE OPERATIONS AGENT: LORETTA 09/27/2017 THINPREP TIS AND HPV mRNA E6/E7 06172 PATHOLOGIST: DNR 09/27/2017 THINPREP TIS AND HPV mRNA E6/E7 62113 COMMENT 09/27/2017 THINPREP TIS AND HPV mRNA E6/E7 66344 HPV mRNA E6/E7 Not Detected 09/27/2017 CULTURE, GENITAL 55178 C ULTURE, GENITAL SEE NOTE 09/25/2017 CULTURE, THROAT 84892 CU LTURE, THROAT SEE NOTE 08/19/2016 Review of Systems System Result Effective Dates Cardiovascular hypertension 08/08/2018 Endocrine diabetes mellitus type [...] Psychiatric No depression 02/02/2017 Endocrine No goiter 07/2016 Endocrine No hyperglycemia 02/02/2017 Endocrine No [...] palpitations 12/01/2015 Respiratory cough 2015 Respiratory dyspnea 10/0 04/2015 Respiratory No pleuritic pain 12/01/2015 Respiratory [...] - General Neurologic mental status Overall: alert 09/13/201 8 None Full Exam - General Neurologic [...] Procedures Procedure Codes Date ROUTINE VENIPUNCTURE CPT-4: 82757 06/19/2018 COMPLETE CBC W/AUTO DIFF WBC CPT-4: 92314 06/19/2018 COMPREHEN METABOLIC PANEL CPT-4: 42696 06/19/2018 A1C HPLC CPT-4: 26141 06/19/2018 ASSAY THYROID STIM H ORMONE CPT-4: 33874 06/19/2018 URINALYSIS NONAUTO W /O SCOPE CPT-4: 42140 06/19/2018 ACUTE HEPATITIS PANEL CPT-4: 53908 06/19/2018 INFLUENZA ASSAY W/OPTIC CPT-4: 26712 04/26/2018 STREP A ASSAY W/OPTIC CPT-4: 29750 04/25/2018 THROAT CULTURE CPT-4: 62677 04/25/2018 CEFTRIAXONE SODIUM I NJECTION CPT-4: J0696 11/10/2017 DEXAMETHASONE SODIUM PHOS CPT-4: J1100 11/10/2017 THER/PROPH/DIAG INJ SC/IM CPT-4: 04479 11/10/2017 TRIAMCINOLONE ACET I NJ NOS CPT-4: J3301 11/10/2017 OCCULT BLOOD FECES CPT- 4: 98574 09/22/2017 SURESWAB(R), BACTERI AL VAGINOSIS/VAGINITIS CPT-4: 07336 09/22/2017 CULTURE, GENITAL CPT-4: 68983 09/22/2017 TDAP VACCINE 7 YRS/> IM CPT-4: 41476 11/30/2016 IMMUNIZATION ADMIN CPT- 4: 49067 11/30/2016 REMOVAL OF FOOT FORE IGN BODY CPT-4: 78133 11/29/2016 REMOVAL OF SKIN TAGS <W/15 CPT-4: 03082 10/05/2016 CULTURE, THROAT CPT-4: 81931 08/16/2016 PNEUMOCOCCAL VACC 13 AYSHA IM CPT-4: 33084 03/09/2016 IMMUNIZATION ADMIN CPT- 4: 48943 03/09/2016 THER/PROPH/DIAG INJ SC/IM CPT-4: 82717 12/11/2015 TRIAMCINOLONE ACET I NJ NOS CPT-4: J3301 12/11/2015 DEXAMETHASONE SODIUM PHOS CPT-4: J1100 12/11/2015 Vital Signs Date Vital 08/08/2018 Blood Pressure 1: 122/78 Code: 8480-6 Heart Rate 1: 80 bpm Respiratory Rate: 20 bpm SpO2: 97% Temperature: 36.9 (C ) / 98.4 (F) Weight: 214 lbs 07/06/2018 Blood Pressure 1: 126/84 Code: 8480-6 BMI: 39.9 Code: 14084-0 Heart Rate 1: 80 bpm Height: 5'2" [...] 1: 126/82 Code: 8480-6 BMI: 40.6 Code: 28320-1 Heart Rate 1: 72 bpm Height: 5'2" [...] 1: 124/68 Code: 8480-6 BMI: 41.7 Code: 31974-2 Heart Rate 1: 66 bpm Height: 5'2" Respiratory Rate: 20 bpm SpO2: 98% Temperature: 36.2 (C ) / 97.2 (F) Weight: 228 lbs 09/22/2017 Blood Pressure 1: 142/80 Code: 8480-6 BMI: 41.3 Code: 62147-3 Heart Rate 1: 60 bpm Height: 5'2" Respiratory Rate: 20 bpm SpO2: 98% Temperature: 36.3 (C ) / 97.3 (F) Weight: 226 lbs 07/05/2017 Blood Pressure 1: 129/82 Code: 8480-6 BMI: 42.3 Code: 15360-8 Heart Rate 1: 60 bpm Height: 5'2" SpO2: 97% Temperature: 36.4 (C ) / 97.6 (F) Weight: 231 lbs 03/04/2017 Blood Pressure 1: 142/80 Code: 8480-6 BMI: 42.4 Code: 75015-0 Heart Rate 1: 74 bpm Height: 5'2" Respiratory Rate: 24 bpm SpO2: 97% Temperature: 36.4 (C ) / 97.6 (F) Weight: 232 lbs 02/02/2017 Blood Pressure 1: 146/82 Code: 8480-6 BMI: 42.4 Code: 57024-0 Heart Rate 1: 84 bpm Height: 5'2" Respiratory Rate: 20 bpm SpO2: 98% Temperature: 36.6 (C ) / 97.9 (F) Weight: 232 lbs 11/29/2016 Blood Pressure 1: 126/78 Code: 8480-6 Heart Rate 1: 76 bpm Height: 5'2" Respiratory Rate: 20 bpm SpO2: 96% Temperature: 36.9 (C ) / 98.4 (F) 11/16/2016 Blood Pressure 1: 136/94 Code: 8480-6 BMI: 42.6 Code: 43496-3 Heart Rate 1: 68 bpm Height: 5'2" Respiratory Rate: 20 bpm SpO2: 96% Temperature: 36.9 (C ) / 98.4 (F) Weight: 233 lbs 10/05/2016 Blood Pressure 1: 112/78 Code: 8480-6 BMI: 41.5 Code: 95008-5 Heart Rate 1: 80 bpm Height: 5'2" Respiratory Rate: 20 bpm SpO2: 97% Temperature: 36.8 (C ) / 98.2 (F) Weight: 227 lbs 09/06/2016 Blood Pressure 1: 126/82 Code: 8480-6 BMI: 42.4 Code: 34034-7 Heart Rate 1: 64 bpm Height: 5'2" Respiratory Rate: 20 bpm SpO2: 98% Temperature: 37.0 (C ) / 98.6 (F) Weight: 232 lbs 08/16/2016 Blood Pressure 1: 136/82 Code: 8480-6 BMI: 42.1 Code: 38613-9 Heart Rate 1: 72 bpm Height: 5'2" [...] 1: 144/80 Code: 8480-6 BMI: 40.4 Code: 64446-8 Heart Rate 1: 92 bpm Height: 5'2" Respiratory Rate: 20 bpm SpO2: 95% Temperature: 36.8 (C ) / 98.2 (F) Weight: 221 lbs 12/08/2015 Blood Pressure 1: 124/78 Code: 8480-6 Heart Rate 1: 108 bpm Height: 5'2" Respiratory Rate: 22 bpm SpO2: 95% Temperature: 36.2 (C ) / 97.2 (F) Weight: 12/01/2015 Blood Pressure 1: 124/78 Code: 8480-6 BMI: 40.4 Code: 05260-3 Heart Rate 1: 92 bpm Height: 5'2" Respiratory Rate: 24 bpm SpO2: 93% Temperature: 35.6 (C ) / 96.0 (F) Weight: 221 lbs Functional Status No Functional Status data History of Present Illness Symptom Name Status Resu lt Effective Date Notes Quality chronic 08/08/2018 None Glucose monitoring nev er checks. 08/08/2018 Patient states her [employer] never sent her glucometer supplies Quality chronic 08/08/2018 None Quality stable 08/08/2018 None Quality chronic. 07/06/2018 Patient is having problems with getting glucose meter from [employer] Quality chronic 07/06/2018 None Quality improving 07/06/2018 [...] disease 09/22/2017 grandfather with stroke. mother with [place]. well woman exam (40-65 years) Contro l [...] Labs AST; 124 02/02/2017 None hypokalemia Quality teasel setter rickey 02/02/2017 None hypokalemia Quality stab le. [...] ongoing 10/05/2016 None cough Location in the roat 09/06/2016 None cough Quality improving 09/06/2016 [...] Encounters Encounter Performer Loca tion Codes Date ([id number]) OFFICE/OUTPA TIENT VISIT EST Diagnosis: Type 2 diabetes mellitus with hyperglycemia[ICD10: E11.65] Diagnosis: Essential (primary) hypertension[ICD10: I10] Nirmala LUONG DO [facility] CPT-4: 19252 08/08/2018 ([id number]) OFFICE/OUTPA TIENT VISIT EST Diagnosis: Essential (primary) hypertension[ICD10: I10] Diagnosis: Type 2 diabetes mellitus with hyperglycemia[ICD10: E11.65] Diagnosis: Other fatigue[ICD10: R53.83] Nirmala JARAMILLO [facility] CPT-4: 51744 07/06/2018 ([id number]) OFFICE/OUTPA TIENT VISIT EST Diagnosis: Dizziness and giddiness[ICD10: R42] Diagnosis: Elevated blood-pressure reading, without diagnosis of hypertension[ICD10: R03.0] Shell JARAMILLO [facility] CPT-4: 99786 06/19/2018 ([id number]) OFFICE/OUTPA TIENT VISIT EST Diagnosis: Essential (primary) hypertension[ICD10: I10] Diagnosis: Dizziness and giddiness[ICD10: R42] Shell JARAMILLO [facility] CPT-4: 70894 06/13/2018 ([id number]) NURSE/OUTPAT IENT VISIT EST Diagnosis: Influenza due to identified novel influenza A virus with other manifestations[ICD10: J09.X9] [facility]: 72026 04/26/2018 OFFICE/OUTPATIENT SIT EST Diagnosis: Pain in throat[ICD10: R07.0] Diagnosis: Acute pharyngitis, unspecified[ICD10: J02.9] Shell JARAMILLO [facility] CPT-4: 74657 04/25/2018 ([id number]) OFFICE/OUTPA TIENT VISIT EST Diagnosis: Acute sinusitis, unspecified[ICD10: J01.90] Diagnosis: Paresthesia of skin[ICD10: R20.2] Nirmala LUONG [facility] CPT-4: 96724 04/14/2018 ([id number]) OFFICE/OUTPA TIENT VISIT EST Diagnosis: Pain in right leg[ICD10: M79.604] Diagnosis: Sciatica, right side[ICD10: M54.31] Nirmala LUONG [facility] CPT-4: 23166 01/31/2018 ([id number]) OFFICE/OUTPA TIENT VISIT EST Diagnosis: Pain in right leg[ICD10: M79.604] Lisbeth VENCES ER DO [facility] CPT-4: 13453 01/23/2018 ([id number]) OFFICE/OUTPA TIENT VISIT EST Diagnosis: Acute bronchitis, unspecified[ICD10: J20.9] Lisbeth VENCES ER DO [facility] [facility] CPT-4: 07842 11/10/2017 ([id number]) PREV VISIT E ST AGE 40-64 Diagnosis: [...] Diagnosis: Nonalcoholic steatohepatitis (MOORE)[ICD10: K75.81] Lisbeth VENCES ER DO [facility] CPT-4: 67683 09/22/2017 ([id number]) OFFICE/OUTPA TIENT VISIT EST Diagnosis: Acute sinusitis, unspecified[ICD10: J01.90] Lisbeth MENDOZAND ER DO [facility] CPT-4: 08508 07/05/2017 OFFICE/OUTPATIENT SIT EST Diagnosis: Pneumonia, unspecified organism[ICD10: J18.9] Lisbeth VENCES ER DO [facility] CPT-4: 25121 03/04/2017 ([id number]) OFFICE/OUTPA TIENT VISIT EST Diagnosis: Polycystic ovarian syndrome[ICD10: E28.2] Diagnosis: Abnormal levels of other serum enzymes[ICD10: R74.8] Diagnosis: Nonalcoholic steatohepatitis (MOORE)[ICD10: K75.81] Diagnosis: Impaired glucose tolerance (oral)[ICD10: R73.02] Nirmala Dagoedngthierno MENDOZA NDER DO [facility] CPT-4: 76409 02/02/2017 ([id number]) OFFICE/OUTPA TIENT VISIT EST Diagnosis: VACCINE FOR TDAP[ICD10: Z23] Nirmala JARAMILLO DO [facility] CPT-4: 61007 11/30/2016 ([id number]) OFFICE/OUTPA TIENT VISIT EST Diagnosis: Cough[ICD10: R05] Diagnosis: Abnormal levels of other serum enzymes[ICD10: R74.8] Diagnosis: Family history of other endocrine, nutritional and metabolic diseases[ICD10: Z83.49] Nirmala JARAMILLO DO [facility] CPT-4: 82143 11/16/2016 ([id number]) OFFICE/OUTPA TIENT VISIT EST Diagnosis: Cough[ICD10: R05] Diagnosis: Other seasonal allergic rhinitis[ICD10: J30.2] Diagnosis: Abnormal levels of other serum enzymes[ICD10: R74.8] Nirmala LUONG [facility] CPT-4: 48447 09/06/2016 ([id number]) OFFICE/OUTPA TIENT VISIT EST Diagnosis: Cough[ICD10: R05] Diagnosis: Polycystic ovarian syndrome[ICD10: E28.2] Nirmala LUONG [facility] CPT-4: 02831 08/16/2016 ([id number]) OFFICE/OUTPA TIENT VISIT EST Diagnosis: Acute bronchitis, unspecified[ICD10: J20.9] Diagnosis: Acute upper respiratory infection, unspecified[ICD10: J06.9] Ananya Lopez NIRMALA JARAMILLO [facility] CPT-4: 90377 06/23/2016 ([id number]) OFFICE/OUTPA TIENT VISIT EST Diagnosis: PNEUMOCOCCAL VACCINE[ICD10: Z23] Nirmala JARAMILLO [facility] CPT-4: 00199 03/09/2016 ([id number]) OFFICE/OUTPA TIENT VISIT EST Diagnosis: Pneumonia, unspecified organism[ICD10: J18.9] Diagnosis: Polycystic ovarian syndrome[ICD10: E28.2] Diagnosis: Generalized anxiety disorder[ICD10: F41.1] Nirmala LUONG [facility] CPT-4: 50313 12/18/2015 ([id number]) OFFICE/OUTPA TIENT VISIT EST Diagnosis: Cough[ICD10: R05] Diagnosis: Acute bronchospasm[ICD10: J98.01] Nirmala GIMENEZ Shantal LUONG DO [facility] CPT-4: 91581 12/11/2015 ([id number]) OFFICE/OUTPA TIENT VISIT EST Diagnosis: Pneumonia, unspecified organism[ICD10: J18.9] Ananya WHITINGQUELINE JeremyZee [facility] CPT-4: 19947 12/08/2015 OFFICE/OUTPATIENT SIT NEW Diagnosis: Pneumonia, unspecified organism[ICD10: J18.9] Ananya JARAMILLO DO [facility] CPT-4: 73295 12/01/2015 Plan of Care Planned Activity Notes C odes Status Date Visit Diagnosis Plan: Essential (primary) hypertension Discussion: Stable ICD-9 : 401.9 ICD-10 : I10 08/08/2018 Visit Diagnosis Plan: Type 2 diabetes me llitus with hyperglycemia Discussion: Lab discussed Accuchecks henna ly Continue current meds Check CMP and HbA1C end of September then fwup ICD-9 : 250.02 ICD-10 : E11.65 08/08/2018 Appointment: [facility]irm[facility]illo [phone] [facility] [facility] 08/08/2018 Visit Diagnosis Plan: Essential [...] R53.83 07/06/2018 Appointment: Nirmala Jaramillo WPtel: [phone] [facility] FOLLOW UP 07/06/2018 Appointment: Nirmala Jaramillo WPtel: [phone] [facility] US Consult 06/22/2018 Patient Education: lisinopril- [employer] Coupon [phone] https://www.Aditive/samplemd/resources/getResource/61/057k30o6-cwm0-9329-eb Completed 06/22/2018 Visit Diagnosis Plan: Dizziness and giddiness Discussion: Recommend 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 ICD-9 : 780.4 ICD-10 : R42 06/19/2018 Visit Diagnosis Plan: Essential (primary) hypertension Discussion: Increased lisinopril from 5 QD to 20 mg QD. Labs today- CBC, CMP, TSH, A1C. UA today- trace protein. hematuria (patient on period). ICD-9 : 401.9 ICD-10 : I10 06/19/2018 Appointment: Shell Vega [address] [place], [place] [phone] FOLLOW UP 06/19/2018 Visit Diagnosis Plan: Dizziness [...] ICD-10 : I10 06/13/2018 Appointment: Shell Vega [address] [place], [place] [phone] ACUTE ILLNESS 06/13/2018 Appointment: Nirmala Jaramillo WPtel: [phone] [facility] FLU SWAB 04/26/2018 Visit Diagnosis Plan: Pain in throat Discussion: Rapid Strep A- negative Throat culture- pending. Will call patient with results. Prednisone 10 mg TID x 5 days. Supportive care- fluids, tylenol for pain, humidified air. ICD-9 : 784.1 ICD-10 : R07.0 04/25/2018 Appointment: Shell Vega [address] ACUTE ILLNESS 04/25/2018 Visit Plan: Saline nasal flushes pr n. Tylenol/Motrin prn headache. Notify if persists/symptoms worsening. 04/14/2018 Visit Diagnosis Plan: Paresthesia of skin Discussion: Carpal tunnel wrist splints Will see if prednisone helps Discussed EMGs if persists ICD-9 : 782.0 ICD-10 : R20.2 04/14/2018 Visit NOS Plan: Plan Notes: Saline nasal flushes prn. Tyle... 04/14/2018 Visit Diagnosis Plan: Acute sinusitis, unspecified Discussion: Augmentin and prednisone Humidifier ICD-9 : 461.9 ICD-10 : J01.90 04/14/2018 Appointment: Nirmala Jaramillo WPtel: [address] [place] [address] ACUTE ILLNESS 04/14/2018 Patient Education: prednisone- [employer] Coupon [phone] https://www.Aditive/Usound/resources/getResource/61/2xjo40vo-y3k7-55p8-l0 Completed 04/14/2018 Visit Diagnosis Plan: Pain in right leg Discussion: Check right tib/fib x-ray and start celebrex May need PT ICD-9 : 729.5 ICD-10 : M79.604 01/31/2018 Visit Diagnosis Plan: Sciatica, right side Discussion: Check L/S spine x-ray ICD-9 : 724.3 ICD-10 : M54.31 01/31/2018 Appointment: Nirmala Jaramillo WPtel: [phone] FOLLOW UP 01/31/2018 Care Plan: X-RAY EXAM L-S SPINE 2/3 VWS LOINC : 62296-8 Pending 01/31/2018 Care Plan: X-RAY EXAM OF LOWER LEG LOINC : 00898-7 Pending 01/31/2018 Visit Diagnosis Plan: Pain in [...] ICD-10 : M79.604 01/23/2018 Appointment: Lisbeth Kruger [address] [place] [address] ACUTE ILLNESS 01/23/2018 Visit Diagnosis Plan: Acute [...] ICD-10 : J20.9 11/10/2017 Appointment: Lisbeth Kruger [address] [place] [address] ACUTE ILLNESS 11/10/2017 Patient Education: Patient Medication Summary Completed 11/10/2017 Care Plan: CHEST X-RAY 2VW FRONTAL&LATL LOINC : 75048-7 Pending 11/10/2017 Patient Education: Patient Medication Summary Completed 09/26/2017 Care Plan: A1C HPLC LO INC : 24550-0 Pending 09/26/2017 Visit Diagnosis Plan: Encounter for [...] 09/22/2017 Visit Diagnosis Plan: Encounter for [facility] adult medical examination without abnormal findings Discussion: fasting blood work ordered t o be obtained at via [employer] [facility] in the next few days when [...] : F41.1 09/22/2017 Appointment: Lisbeth Kruger [address] [id number] Annual Well Visit 09/22/2017 Patient Education: Patient [...] : J01.90 07/05/2017 Appointment: Lisbeth Kruger [address] [facility] ACUTE ILLNESS 07/05/2017 Patient Education: Patient Medication [...] ICD-10 : J18.9 03/04/2017 Appointment: Lisbeth Kruger [facility] [address] [id number] FOLLOW UP 03/04/2017 Patient Education: Patient Medication [...] : R74.8 02/02/2017 Appointment: Nirmala Jaramillo WPtel: [address] [place] [address] FOLLOW UP 02/02/2017 Patient Education: Patient Medication Summary Completed 02/02/2017 Care Plan: Referral Order SNOMED-CT : [id number] Pending 02/02/2017 Patient Education: Patient Medication Summary Completed 01/28/2017 Care Plan: ACUTE HEPATITIS PANEL LOINC : 11725-9 Pending 01/28/2017 Patient Education: Patient Medication Summary Completed 01/26/2017 Care Plan: COMPREHEN METABOLIC PANEL LOINC : 58824-8 Pending 01/26/2017 Care Plan: A1C HPLC LO INC : 47825-3 Pending 01/26/2017 Appointment: Nirmala Jaramillo WPtel: [address] [place] [address] INJECTION 11/30/2016 Referral: Sav Goff [address] [place] [address] Referral Initiated 11/30/2016 Patient Education: Patient [...] : S90.852A 11/29/2016 Appointment: Nirmala Jaramillo WPtel: [facility] [place] [phone] ACUTE ILLNESS 11/29/2016 Patient Education: Patient Medication [...] : R05 11/16/2016 Appointment: Nirmala Jaramillo WPtel: [address] [place], [place] [phone] FOLLOW UP 11/16/2016 Patient Education: Patient Medication Summary Completed 11/16/2016 Care Plan: Referral Order SNOMED-CT : [id number] Pending 11/16/2016 Appointment: Nirmala Jaramillo WPtel: [address] [place], [place] [phone] [place] RESCHEDULED 11/08/2016 Visit Diagnosis Plan: Other hypertrophic disorders of the skin Discussion: Irritated skin tags excised at base and then bases cauterized ICD-9 : 701.9 ICD-10 : L91.8 10/05/2016 Appointment: Nirmala Jaramillo WPtel: [address] [place], [place] [phone] [id number] confirmed-sp OFFICE SURGERY 10/05/2016 Patient Education: Patient Medication Summary Completed 10/05/2016 Appointment: Nirmala Jaramillo WPtel: [address] [place], [place] [phone] [place] Per doctor~sl 09/09 canceled due to [...] : R05 09/06/2016 Appointment: Nirmala Jaramillo WPtel: [address] [place], [place] [phone] / lm~sl FOLLOW UP 09/06/2016 Patient Education: Patient Medication Summary Completed 09/06/2016 Patient Education: Patient Medication Summary Completed 08/18/2016 Care Plan: ACUTE HEPATITIS PANEL LOINC : 03817-5 Pending 08/18/2016 Care Plan: TICKBORNE DISEASE PANEL (WITH LYME ANTIBODY Pending 08/18/2016 Visit Diagnosis Plan: Cough Discussi on: Throat culture Stop Proair Continue humidifier, and supportive therapy ENT if culture negative and persists Follow Up: 2 weeks ICD-9 : 786.2 ICD-10 : R05 08/16/2016 Visit Diagnosis Plan: Polycystic ovarian syndrome Discussion: Annual labs TSH, Free T4, CBC, CMP, lipids ICD-9 : 256.4 ICD-10 : E28.2 08/16/2016 Appointment: Nirmala Jaramillo WPtel: [address] [place], [place] [phone] 08/13 confirmed `sl WORK IN 08/16/2016 Patient Education: Patient Medication Summary Completed 08/16/2016 Care Plan: MAMMOGRAM SCREENING Grand mother Br Ca in late LOINC : 44614-6 Pending 08/16/2016 Patient Education: Patient Medication Summary Completed 07/27/2016 Visit Diagnosis Plan: Acute bronchitis, unspecified Discussion: Rxs as above Borrow neb machine until home with hers if needed OTC meds reviewed Watch BSs closely Follow up if not improving ICD-9 : 466.0 ICD-10 : J20.9 06/23/2016 Appointment: Ananya Lopez [address] [place], [place] [id number] ACUTE ILLNESS 06/23/2016 Patient Education: Patient Medication Summary Completed 06/23/2016 Appointment: Nirmala Jaramillo WPtel: [address] [place], [place] [phone] INJECTION 03/09/2016 Patient Education: Patient Medication Summary Completed 03/09/2016 Appointment: Nirmala Jaramillo WPtel: [address] [place], [place] [phone] [place] INJECTION 02/16/2016 Visit Plan: Decrease Breo to 100/25 mcg 1p BID for another week Flu shot with Prevnar 13 next week if covered Refill metformin 12/18/2015 Appointment: Nirm[facility]amillo [facility]Ptel[phone] [facility] 12/16 confirmed`sl FOLLOW UP 12/18/2015 Patient Education: [...] 1week 12/11/2015 Appointment: Nirmala Jaramillo WPtel: [phone] [facility] ACUTE ILLNESS 12/11/2015 Patient Education: Patient [...] worsening cough, etc 12/08/2015 Appointment: Ananya Lopez [address] [place], [place] [phone] 12/04 Lm~sl....confirmed-sp FOLLOW UP 12/08/2015 Patient Education: [...] to improve 12/01/2015 Appointment: Ananya Lopez [address] [facility] 11/30 lm ~johanne NEW PATIENT 12/01/2015 Patient Education: Patient Medication Summary Completed 12/01/2015 Referral: Chan Chavez WPtel: [address] [place] Referral Completed Referral: Dhruv Lubin WPtel: [address] Referral Initiated Instructions Comment . Saline nasal flush es prn. Tylenol/Motrin prn headache. Notify if persists/symptoms worsening. . Decrease Breo to 1 00/25mcg 1p [...] - fevers, chills, worsening cough, etc . CXR negative Kenalog/Dexamethasone today Add Breo 200 1p BID for 1 week then Breo 100 1 p BID Tussionex rx given Continue SVNs with albuterol BID Notify if worsening Recheck 1week . Finish levaquin or dered by [employer] [...] improve . Finish levaquin or dered by [employer] Add above meds has nebulizer machine she [...]
--- OUTSIDE RECORDS SUMMARY | 2019-05-18 13:26 | XMS REPORT | CCD ---
Author Author Veronica Lopez Organization [facility] Address [address] [place] [address] Phone Unavailable Care Team Providers Care Quality Specialist Name Role Phone Nirmala Jaramillo D.O., PP Unavailable CCM Unavailable Summary Purpose Interface Exchange Insurance Providers Payer name Policy type / Coverage type Covered green party ID Effective Begin Date Effective End Date [employer] Commercial Insurance [id number] Unknown Family History Family History data not found Social History Social History Element Codes Description Effective Dates Marital status Unknown M arried 12/01/2015 Number of children Unknown 3 12/01/2015 Employment Unknown Curre 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 5 mL subcutaneous pen injector RxNorm: 8411520 0.75 Milligram(s) SQ QW Replaces Ozemic 08/28/2018 No Stop Date Active replaces Ozempic Ozempic 0.25 mg or 0 .5 mg (2 mg/1.5 mL) subcutaneous pen injector RxNorm: 8457687 0.5 Milligram(s) SQ WEEKLY 08/28/2018 10/05/2018 Inactive metformin 1,000 mg t ablet RxNorm: 903832 1 Tablet(s) PO QD 08/23/2018 09/05/2018 Inactive Ozempic 0.25 mg or 0 .5 mg (2 mg/1.5 mL) subcutaneous pen injector RxNorm: 7489063 0.5 Milligram(s) SQ WEEKLY 08/03/2018 08/27/2018 Inactive amlodipine 5 mg tablet RxNorm: 135495 1 Tablet(s) PO QD 07/25/2018 11/21/2018 Active Lexapro 20 mg tablet RxNorm: 061719 1 Tablet(s) PO QD 07/10/2018 01/05/2019 Active lisinopril 40 mg tablet RxNorm: 788788 1 Tablet(s) PO QD 07/10/2018 09/07/2018 Inactive amlodipine 5 mg tablet RxNorm: 802584 1 Tablet(s) PO QD 06/22/2018 07/20/2018 Inactive lisinopril 40 mg tablet RxNorm: 797051 1 Tablet(s) PO QD 06/22/2018 07/09/2018 Inactive lisinopril 20 mg tablet RxNorm: 292992 1 Tablet(s) PO QD 06/19/2018 06/21/2018 Inactive lisinopril 5 mg tablet RxNorm: 348507 1 Tablet(s) PO QD 06/13/2018 06/18/2018 Inactive metformin 1,000 mg t ablet RxNorm: 088025 Tablet(s) TABLET(S) 1 TABLET(S) PO QD 06/08/2018 08/22/2018 In active Tamiflu 75 mg capsule RxNorm: 245449 1 Capsule(s) PO BID 04/26/2018 04/30/2018 Inactive Tamiflu 75 mg capsule RxNorm: 337461 1 Capsule(s) PO BID 04/26/2018 04/25/2018 Inactive prednisone 10 mg tablet RxNorm: 059837 1 Tablet(s) PO TID 04/25/2018 04/29/2018 Inactive prednisone 20 mg tablet RxNorm: 245854 1 Tablet(s) PO BID 04/14/2018 04/20/2018 Inactive Augmentin 500 mg-125 mg tablet RxNorm: 616310 1 Tablet(s) PO BID 04/14/2018 04/20/2018 Inactive metformin 1,000 mg t ablet RxNorm: 331926 TABLET(S) 1 TABLET(S) PO QD 03/09/2018 06/06/2018 Inactive celecoxib 200 mg cap lalito RxNorm: 175003 1 Capsule(s) PO BID for diana n 01/31/2018 03/01/2018 Inactive metformin 1,000 mg t ablet RxNorm: 801328 1 Tablet(s) PO BID 01/23/2018 No Stop Date Active Medrol (Ab) 4 mg ta blets in a dose pack RxNorm: 948034 Tablet(s) PO take as directed 01/23/2018 01/30/2018 Inactive Lexapro 20 mg tablet RxNorm: 043546 Tablet(s) 1 TABLET(S) PO QD 01/23/2018 06/21/2018 Inactive Lexapro 20 mg tablet RxNorm: 569339 Tablet(s) 1 TABLET(S) PO QD 11/03/2017 01/22/2018 Inactive metformin 1,000 mg t ablet RxNorm: 818895 1 Tablet(s) PO BID 09/27/2017 01/22/2018 Inactive Xanax 0.25 mg tablet RxNorm: 149714 1 Tablet(s) PO as needed 09/22/2017 No Stop Date Active Lexapro 20 mg tablet RxNorm: 909352 Tablet(s) 1 TABLET(S) PO QD 09/22/2017 11/02/2017 Inactive metformin 1,000 mg t ablet RxNorm: 753574 Tablet(s) 1 TABLET(S) PO QD 09/22/2017 09/26/2017 Inactive metformin 1,000 mg t ablet RxNorm: 675468 Tablet(s) 1 TABLET(S) PO QD NEEDS UPDATED LABS 09/06/2017 09/20/2017 Inactive metformin 1,000 mg t ablet RxNorm: 086468 1 TABLET(S) PO QD NEE DS UPDATED LABS 08/24/2017 09/05/2017 In active metformin 1,000 mg t ablet RxNorm: 742018 1 Tablet(s) PO QD Nee ds updated labs 08/08/2017 08/22/2017 In active Lexapro 20 mg tablet RxNorm: 935733 1 TABLET(S) PO QD 07/17/2017 09/21/2017 Inactive pseudoephedrine 30 m g tablet RxNorm: 1432500 1-2 Tablet(s) PO Q6H 07/05/2017 06/12/2018 Inactive Augmentin 875 mg-125 mg tablet RxNorm: 469603 1 Tablet(s) PO BID 07/05/2017 07/14/2017 Inactive metformin 1,000 mg t ablet RxNorm: 394165 1 Tablet(s) PO QD Nee ds updated labs 07/04/2017 08/08/2017 In active metformin 1,000 mg t ablet RxNorm: 839477 1 Tablet(s) PO QD Nee ds updated labs 05/30/2017 07/04/2017 In active Levaquin 750 mg tablet RxNorm: 669277 1 Tablet(s) PO QD 03/04/2017 03/10/2017 Inactive ProAir HFA 90 mcg/ac tuation aerosol inhaler RxNorm: 673684 2 Puff(s) INH Q4H as needed 03/04/2017 07/04/2017 Inactive if insurance does not cover, please swit ch to ventolin. Tamiflu 75 mg capsule RxNorm: 443347 1 Capsule(s) PO QD 03/04/2017 03/10/2017 Inactive metformin 1,000 mg t ablet RxNorm: 123018 1 Tablet(s) PO QD 02/15/2017 05/15/2017 Inactive Lexapro 20 mg tablet RxNorm: 211216 1 Tablet(s) PO QD 01/17/2017 11/03/2017 Inactive cephalexin 500 mg ca psule RxNorm: 044850 1 Capsule(s) PO TID 11/29/2016 12/08/2016 Inactive pantoprazole 40 mg t ablet,delayed release RxNorm: 047797 1 Tablet(s) PO QD 11/16/2016 03/15/2017 In active metformin 1,000 mg t ablet RxNorm: 543908 TAKE 1 TABLET BY MOUT H EVERY DAY 10/10/2016 02/15/2017 In active Flonase Allergy Reli ef 50 mcg/actuation nasal spray,suspension RxNorm: 8098950 2 [place] NASAL QHS 09/06/2016 11/15/2016 Inactive Singulair 10 mg tablet RxNorm: 546228 1 Tablet(s) PO QHS 09/06/2016 11/15/2016 Inactive Singulair 10 mg tablet RxNorm: 525525 1 Tablet(s) PO QHS 08/12/2016 09/05/2016 Inactive ProAir HFA 90 mcg/ac tuation aerosol inhaler RxNorm: 955098 1 Puff(s) INH Q4H as needed 08/12/2016 08/15/2016 Inactive Medrol (Ab) 4 mg ta blets in a dose pack RxNorm: 814508 Tablet(s) PO As Direc kenny 07/29/2016 08/15/2016 In active Lexapro 20 mg tablet RxNorm: 049422 1 Tablet(s) PO QD 07/06/2016 01/17/2017 Inactive doxycycline hyclate 100 mg capsule RxNorm: 8070734 1 Capsule(s) PO BID 06/24/2016 06/23/2016 In active doxycycline hyclate 100 mg capsule RxNorm: 4182080 1 Capsule(s) PO BID 06/24/2016 07/03/2016 In active ProAir HFA 90 mcg/ac tuation aerosol inhaler RxNorm: 675444 1 Puff(s) INH Q4H as needed 06/23/2016 08/11/2016 Inactive prednisone 20 mg tablet RxNorm: 258057 1 Tablet(s) PO BID 06/23/2016 06/27/2016 Inactive metformin 1,000 mg t ablet RxNorm: 975856 1 Tablet(s) PO QD 12/18/2015 06/14/2016 Inactive Lexapro 20 mg tablet RxNorm: 186824 1 Tablet(s) PO QD 12/18/2015 07/06/2016 Inactive prednisone 20 mg tablet RxNorm: 590618 Take 3 tabs PO QD x 3 days, then 2 tabs PO QD x 3 days, then 1 tab PO QD x 3 days 12/01/2015 12/10/2015 Inactive albuterol sulfate 2. 5 mg/3 mL (0.083 %) solution for nebulization RxNorm: 518854 3 Milliliter(s) INH Q4H as needed 07/04/2017 Inactive Singulair 10 mg tablet RxNorm: 764319 1 Tablet(s) PO QHS No Start Date 08/11/2016 Inactive Breo Ellipta 100 mcg -25 mcg/dose powder for inhalation RxNorm: 8483928 1 Puff(s) INH QD No Start Date 02/01/2017 Inactive Zyrtec 10 mg tablet RxNorm: 2065170 1 Tablet(s) PO QAM No Start Date 11/15/2016 Inactive Xanax 0.25 mg tablet RxNorm: 433770 1 Tablet(s) PO as needed No Start Date 09/21/2017 Inactive metformin 1,000 mg t ablet RxNorm: 140773 1 Tablet(s) PO QD No Start Date 12/17/2015 Inactive Singulair 10 mg tablet RxNorm: 059725 1 Tablet(s) PO QHS No Start Date 11/15/2016 Inactive metformin 1,000 mg t ablet RxNorm: 789560 1 Tablet(s) PO QD No Start Date 02/14/2017 Inactive metformin 1,000 mg t ablet RxNorm: 850961 1 Tablet(s) PO BID No Start Date 09/26/2017 Inactive Trulicity 0.75 mg/0. 5 mL subcutaneous pen injector RxNorm: 5108670 0.75 Milligram(s) SQ QW No Start Date 08/27/2018 Inactive Medrol (Ab) 4 mg ta blets in a dose pack RxNorm: 202461 Tablet(s) PO As Direc kenny No Start Date 07/28/2016 Inactive Lexapro 20 mg tablet RxNorm: 203576 1 Tablet(s) PO QD No Start Date 12/17/2015 Inactive Lexapro 20 mg tablet RxNorm: 397529 1 Tablet(s) PO QD No Start Date [...] flu swab cough 04/25/2018 sore throat 04/14/2018 [facility] treated her with Zpack and finished yesterday however she wasn't checked for flu or strep follow up 01/31/2018 lower leg pain 01/23/2018 right leg cough 11/10/2017 patient was seen at [facility] and given Levaquin and 5 day steroid [...] and prednisone follow up 12/08/2015 [place] ~generic 12/01/2015 [facility] Results Observation Observation Code Item Item Code Result Date VIRAL HEPATITIS PROFILE #2 08609 Hep A IgM Non-Reactive 06/21/19 VIRAL HEPATITIS PROFILE #2 43931 Hep B Core IgM Non-Reactive 06/20/2018 VIRAL HEPATITIS PROFILE #2 06345 Hepatitis C Ab Non-Reactive 06/20/2018 VIRAL HEPATITIS PROFILE #2 59725 Hep Bs Ag Non-Reactive 06/21/19 MEAN GLUC 9487467 Calc M alexandra Gluc 194 mg/dL 06/19/2018 COMPREHENSIVE METABOLIC 33853 AST 94 U/L 06/19/2018 COMPREHENSIVE METABOLIC 19613 ALT 160 U/L 06/19/2018 COMPREHENSIVE METABOLIC 58064 BUN 9 mg/dL 06/19/2018 COMPREHENSIVE METABOLIC 56099 ALBUMIN 4.6 g/dL 06/19/2018 COMPREHENSIVE METABOLIC 38108 CHLORIDE 101 mmol/L 06/19/2018 COMPREHENSIVE METABOLIC 04160 Bili Total 0.9 mg/dL 06/19/2018 COMPREHENSIVE METABOLIC 15388 ALK PHOS 64 U/L 06/19/2018 COMPREHENSIVE METABOLIC 57437 SODIUM 136 mmol/L 06/19/2018 COMPREHENSIVE METABOLIC 14009 CREATININE 0.58 mg/dL 06/19/2018 COMPREHENSIVE METABOLIC 15404 CALCIUM 10.3 mg/dL 06/19/2018 COMPREHENSIVE METABOLIC 10135 POTASSIUM 3.7 mmol/L 06/19/2018 COMPREHENSIVE METABOLIC 39675 Total Protein 7.1 g/dL 06/19/2018 COMPREHENSIVE METABOLIC 97842 Glucose 187 mg/dL 06/19/2018 COMPREHENSIVE METABOLIC 38953 Bicarbonate 26 mmol/L 06/19/2018 COMPREHENSIVE METABOLIC 36709 AGAP 9 mmol/L 06/19/2018 GLYCOSYLATED HEMOGLOBIN TEST 40116 Hgb A1c 52615-9 8.4 % 06/19/2018 COMPLETE BLOOD COUNT 9001720 WBC 6.2 10e9/L 06/19/2018 COMPLETE BLOOD COUNT 7736454 RBC 4.70 10e12/L 9 COMPLETE BLOOD COUNT 5008643 HEMOGLOBIN 13.4 g/dL 06/19/2018 COMPLETE BLOOD COUNT 1630632 HEMATOCRIT 39.9 % 06/19/2018 COMPLETE BLOOD COUNT 3909586 MCV 84.9 fL 06/19/2018 COMPLETE BLOOD COUNT 5659172 MCH 28.5 pg 06/19/2018 COMPLETE BLOOD COUNT 6658419 MCHC 33.6 g/dL 06/19/2018 COMPLETE BLOOD COUNT 1237759 PLATELET COUNT 252 10e9/L 06/19/2018 COMPLETE BLOOD COUNT 5935739 Mean Plt Volume 12.2 fL 06/19/2018 COMPLETE BLOOD COUNT 8381958 Neut Auto 53.9 % 06/19/2018 COMPLETE BLOOD COUNT 7223053 Lymph Auto 35.2 % 06/19/2018 COMPLETE BLOOD COUNT 3194472 [place] Auto 7.1 % 06/19/2018 COMPLETE BLOOD COUNT 6416044 RDW 14.1 % 06/19/2018 COMPLETE BLOOD COUNT 7036115 Eos Auto 3.2 % 06/19/2018 COMPLETE BLOOD COUNT 6056140 Baso Auto 0.6 % 06/19/2018 COMPLETE BLOOD COUNT 2286120 Neutrophil Abs 3.34 10e9/L 06/19/2018 COMPLETE BLOOD COUNT 4675402 Lymphocyte Abs 2.18 10e9/L 06/19/2018 COMPLETE BLOOD COUNT 8583607 Monocyte Abs 0.44 10e9/L 06/19/2018 COMPLETE BLOOD COUNT 8111165 Eosinophil Abs 0.20 10e9/L 06/19/2018 COMPLETE BLOOD COUNT 3857511 Basophil Abs 0.04 10e9/L 06/19/2018 COMPLETE BLOOD COUNT 9096622 RDW-SD 42.7 fL 06/19/2018 THYROID STIMULATING HORMONE 42742 TSH 1.976 uIU/mL 9 GFR CALC 8264386 GFR Non Afr Amr >60 mL/min 06/19/2018 GFR CALC 1498766 GFR Afr Amr >60 mL/min 06/19/2018 SURESWAB(R), BACTERIAL VAGINOSIS/VAGINITIS 84206 BV CATEGORY: TNP 09/27/2017 SURESWAB(R), BACTERIAL VAGINOSIS/VAGINITIS 74030 LACTOBACILLUS SPECIES DNR 09/27/2017 SURESWAB(R), BACTERIAL VAGINOSIS/VAGINITIS 80177 ATOPOBIUM VAGINAE DNR 09/27/2017 SURESWAB(R), BACTERIAL VAGINOSIS/VAGINITIS 87249 MEGASPHAERA SPECIES DN R 09/27/2017 SURESWAB(R), BACTERIAL VAGINOSIS/VAGINITIS 30062 GARDNERELLA VAGINALIS DNR 09/27/2017 SURESWAB(R), BACTERIAL VAGINOSIS/VAGINITIS 52232 SURESWAB(R) TRICHOMONAS VAGINALIS RNA, QL TMA TNP 09/27/2017 SURESWAB(R), BACTERIAL VAGINOSIS/VAGINITIS 99391 C. ALBICANS, DNA TNP 09/27/2017 SURESWAB(R), BACTERIAL VAGINOSIS/VAGINITIS 44409 C. GLABRATA, DNA DNR 09/27/2017 SURESWAB(R), BACTERIAL VAGINOSIS/VAGINITIS 54229 C. TROPICALIS, DNA DNR 09/27/2017 SURESWAB(R), BACTERIAL VAGINOSIS/VAGINITIS 78841 C. PARAPSILOSIS, DNA D NR 09/27/2017 THINPREP TIS AND HPV mRNA E6/E7 59332 REPORT STATUS: DNR 09/27/2017 THINPREP TIS AND HPV mRNA E6/E7 25979 CLINICAL INFORMATION: 09/27/2017 THINPREP TIS AND HPV mRNA E6/E7 95258 LMP: 09/02/2017 09/27/2017 THINPREP TIS AND HPV mRNA E6/E7 91591 PREV. PAP: 09/27/2017 THINPREP TIS AND HPV mRNA E6/E7 02660 PREV. BX: 09/27/2017 THINPREP TIS AND HPV mRNA E6/E7 55198 SOURCE: [employer] 09/27/2017 THINPREP TIS AND HPV mRNA E6/E7 11694 STATEMENT OF ADEQUACY: 09/27/2017 THINPREP TIS AND HPV mRNA E6/E7 30967 GENERAL CATEGORIZATION: DNR 09/27/2017 THINPREP TIS AND HPV mRNA E6/E7 08046 INTERPRETATION/RESULT: 09/27/2017 THINPREP TIS AND HPV mRNA E6/E7 15173 INFECTION: DNR 09/27/2017 THINPREP TIS AND HPV mRNA E6/E7 01020 COMMENT: 09/27/2017 THINPREP TIS AND HPV mRNA E6/E7 42584 ENTRY OPERATOR: 09/27/2017 THINPREP TIS AND HPV mRNA E6/E7 40357 REVIEW ENTRY OPERATOR: LORETTA 09/27/2017 THINPREP TIS AND HPV mRNA E6/E7 44059 PATHOLOGIST: DNR 09/27/2017 THINPREP TIS AND HPV mRNA E6/E7 85027 COMMENT 09/27/2017 THINPREP TIS AND HPV mRNA E6/E7 60667 HPV mRNA E6/E7 Not Detected 09/27/2017 CULTURE, GENITAL 07613 C ULTURE, GENITAL SEE NOTE 09/25/2017 CULTURE, THROAT 83538 CU LTURE, THROAT SEE NOTE 08/19/2016 Review [...] Constitutional weight gain/obesity 11/16/2016 Endocrine No goiter 1 10/2016 Endocrine No hyperglycemia 11/16/2016 Endocrine No hypoglycemia [...] Procedures Procedure Codes Date ROUTINE VENIPUNCTURE CPT-4: 51070 06/19/2018 COMPLETE CBC W/AUTO DIFF WBC CPT-4: 90797 06/19/2018 COMPREHEN METABOLIC PANEL CPT-4: 79335 06/19/2018 A1C HPLC CPT-4: 64470 06/19/2018 ASSAY THYROID STIM H ORMONE CPT-4: 51208 06/19/2018 URINALYSIS NONAUTO W /O SCOPE CPT-4: 50766 06/19/2018 ACUTE HEPATITIS PANEL CPT-4: 67323 06/19/2018 INFLUENZA ASSAY W/OPTIC CPT-4: 92052 04/26/2018 STREP A ASSAY W/OPTIC CPT-4: 79534 04/25/2018 THROAT CULTURE CPT-4: 63457 04/25/2018 CEFTRIAXONE SODIUM I NJECTION CPT-4: J0696 11/10/2017 DEXAMETHASONE SODIUM PHOS CPT-4: J1100 11/10/2017 THER/PROPH/DIAG INJ SC/IM CPT-4: 66660 11/10/2017 TRIAMCINOLONE ACET I NJ NOS CPT-4: J3301 11/10/2017 OCCULT BLOOD FECES CPT- 4: 46595 09/22/2017 SURESWAB(R), BACTERI AL VAGINOSIS/VAGINITIS CPT-4: 95008 09/22/2017 CULTURE, GENITAL CPT-4: 37095 09/22/2017 TDAP VACCINE 7 YRS/> IM CPT-4: 18407 11/30/2016 IMMUNIZATION ADMIN CPT- 4: 22858 11/30/2016 REMOVAL OF FOOT FORE IGN BODY CPT-4: 18531 11/29/2016 REMOVAL OF SKIN TAGS <W/15 CPT-4: 70146 10/05/2016 CULTURE, THROAT CPT-4: 44087 08/16/2016 PNEUMOCOCCAL VACC 13 AYSHA IM CPT-4: 65586 03/09/2016 IMMUNIZATION ADMIN CPT- 4: 45401 03/09/2016 THER/PROPH/DIAG INJ SC/IM CPT-4: 83768 12/11/2015 TRIAMCINOLONE ACET I NJ NOS CPT-4: J3301 12/11/2015 DEXAMETHASONE SODIUM PHOS CPT-4: J1100 12/11/2015 Vital Signs Date Vital 08/08/2018 Blood Pressure 1: 122/78 Code: 8480-6 Heart Rate 1: 80 bpm Respiratory Rate: 20 bpm SpO2: 97% Temperature: 36.9 (C ) / 98.4 (F) Weight: 214 lbs 07/06/2018 Blood Pressure 1: 126/84 Code: 8480-6 BMI: 39.9 Code: 44146-3 Heart Rate 1: 80 bpm Height: 5'2" [...] 1: 126/82 Code: 8480-6 BMI: 40.6 Code: 77237-3 Heart Rate 1: 72 bpm Height: 5'2" [...] 1: 124/68 Code: 8480-6 BMI: 41.7 Code: 25581-2 Heart Rate 1: 66 bpm Height: 5'2" Respiratory Rate: 20 bpm SpO2: 98% Temperature: 36.2 (C ) / 97.2 (F) Weight: 228 lbs 09/22/2017 Blood Pressure 1: 142/80 Code: 8480-6 BMI: 41.3 Code: 57728-2 Heart Rate 1: 60 bpm Height: 5'2" Respiratory Rate: 20 bpm SpO2: 98% Temperature: 36.3 (C ) / 97.3 (F) Weight: 226 lbs 07/05/2017 Blood Pressure 1: 129/82 Code: 8480-6 BMI: 42.3 Code: 82272-7 Heart Rate 1: 60 bpm Height: 5'2" SpO2: 97% Temperature: 36.4 (C ) / 97.6 (F) Weight: 231 lbs 03/04/2017 Blood Pressure 1: 142/80 Code: 8480-6 BMI: 42.4 Code: 00203-9 Heart Rate 1: 74 bpm Height: 5'2" Respiratory Rate: 24 bpm SpO2: 97% Temperature: 36.4 (C ) / 97.6 (F) Weight: 232 lbs 02/02/2017 Blood Pressure 1: 146/82 Code: 8480-6 BMI: 42.4 Code: 59344-7 Heart Rate 1: 84 bpm Height: 5'2" Respiratory Rate: 20 bpm SpO2: 98% Temperature: 36.6 (C ) / 97.9 (F) Weight: 232 lbs 11/29/2016 Blood Pressure 1: 126/78 Code: 8480-6 Heart Rate 1: 76 bpm Height: 5'2" Respiratory Rate: 20 bpm SpO2: 96% Temperature: 36.9 (C ) / 98.4 (F) 11/16/2016 Blood Pressure 1: 136/ Code: 8480-6 BMI: 42.6 Code: 35747-2 Heart Rate 1: 68 bpm Height: 5'2" Respiratory Rate: 20 bpm SpO2: 96% Temperature: 36.9 (C ) / 98.4 (F) Weight: 233 lbs 10/05/2016 Blood Pressure 1: 11278 Code: 8480-6 BMI: 41.5 Code: 30836-3 Heart Rate 1: 80 bpm Height: 5'2" Respiratory Rate: 20 bpm SpO2: 97% Temperature: 36.8 (C ) / 98.2 (F) Weight: 227 lbs 09/06/2016 Blood Pressure 1: 126/82 Code: 8480-6 BMI: 42.4 Code: 08122-1 Heart Rate 1: 64 bpm Height: 5'2" Respiratory Rate: 20 bpm SpO2: 98% Temperature: 37.0 (C ) / 98.6 (F) Weight: 232 lbs 08/16/2016 Blood Pressure 1: 136/82 Code: 8480-6 BMI: 42.1 Code: 38599-8 Heart Rate 1: 72 bpm Height: 5'2" [...] 1: 144/80 Code: 8480-6 BMI: 40.4 Code: 46089-0 Heart Rate 1: 92 bpm Height: 5'2" Respiratory Rate: 20 bpm SpO2: 95% Temperature: 36.8 (C ) / 98.2 (F) Weight: 221 lbs 12/08/2015 Blood Pressure 1: 124/78 Code: 8480-6 Heart Rate 1: 108 bpm Height: 5'2" Respiratory Rate: 22 bpm SpO2: 95% Temperature: 36.2 (C ) / 97.2 (F) Weight: 12/01/2015 Blood Pressure 1: 124/78 Code: 8480-6 BMI: 40.4 Code: 42440-6 Heart Rate 1: 92 bpm Height: 5'2" Respiratory Rate: 24 bpm SpO2: 93% Temperature: 35.6 (C ) / 96.0 (F) Weight: 221 lbs Functional Status No Functional Status data History of Present Illness Symptom Name Status Resu lt Effective Date Notes Quality chronic 08/08/2018 None Glucose monitoring nev er checks. 08/08/2018 Patient states her [employer] never sent her glucometer supplies Quality chronic 08/08/2018 None Quality stable 08/08/2018 None Quality chronic. 07/06/2018 Patient is having problems with getting glucose meter from [employer] Quality chronic 07/06/2018 None Quality improving 07/06/2018 [...] disease 09/22/2017 grandfather with stroke. mother with VT. 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 [...] Encounters Encounter Performer Loca tion Codes Date ([id number]) OFFICE/OUTPA TIENT VISIT EST Diagnosis: Type 2 diabetes mellitus with hyperglycemia[ICD10: E11.65] Diagnosis: Essential (primary) hypertension[ICD10: I10] Nirmala LUONG [facility] [employer] CPT-4: 65278 08/08/2018 ([id number]) OFFICE/OUTPA TIENT VISIT EST Diagnosis: Essential (primary) hypertension[ICD10: I10] Diagnosis: Type 2 diabetes mellitus with hyperglycemia[ICD10: E11.65] Diagnosis: Other fatigue[ICD10: R53.83] Nirmala JARAMILLO [facility] CPT-4: 12492 07/06/2018 ([id number]) OFFICE/OUTPA TIENT VISIT EST Diagnosis: Dizziness and giddiness[ICD10: R42] Diagnosis: Elevated blood-pressure reading, without diagnosis of hypertension[ICD10: R03.0] Shell JARAMILLO [facility] CPT-4: 21266 06/19/2018 ([id number]) OFFICE/OUTPA TIENT VISIT EST Diagnosis: Essential (primary) hypertension[ICD10: I10] Diagnosis: Dizziness and giddiness[ICD10: R42] Shell JARAMILLO [facility] CPT-4: 30235 06/13/2018 ([id number]) NURSE/OUTPAT IENT VISIT EST Diagnosis: Influenza due to identified novel influenza A virus with other manifestations[ICD10: J09.X9] Nirmala JARAMILLO [facility] CPT-4: 49055 04/26/2018 OFFICE/OUTPATIENT SIT EST Diagnosis: Pain in throat[ICD10: R07.0] Diagnosis: Acute pharyngitis, unspecified[ICD10: J02.9] Shell JARAMILLO [facility] CPT-4: 04970 04/25/2018 ([id number]) OFFICE/OUTPA TIENT VISIT EST Diagnosis: Acute sinusitis, unspecified[ICD10: J01.90] Diagnosis: Paresthesia of skin[ICD10: R20.2] [facility] 23308 04/14/2018 ([id number]) OFFICE/OUTPA TIENT VISIT EST Diagnosis: Pain in right leg[ICD10: M79.604] Diagnosis: Sciatica, right side[ICD10: M54.31] Nirmala DIAZR [facility] CPT-4: 07818 01/31/2018 ([id number]) OFFICE/OUTPA TIENT VISIT EST Diagnosis: Pain in right leg[ICD10: M79.604] Lisbeth VENCES [employer] [facility] CPT-4: 21620 01/23/2018 ([id number]) OFFICE/OUTPA TIENT VISIT EST Diagnosis: Acute bronchitis, unspecified[ICD10: J20.9] Lisbeth VENCES ER [employer] [facility] CPT-4: 17628 11/10/2017 ([id number]) PREV VISIT E ST AGE 40-64 Diagnosis: [...] Nonalcoholic steatohepatitis (MOORE)[ICD10: K75.81] Lisbeth VENCES ER [employer] [facility] CPT-4: 92297 09/22/2017 ([id number]) OFFICE/OUTPA TIENT VISIT EST Diagnosis: Acute sinusitis, unspecified[ICD10: J01.90] Lisbeth VENCES ER [employer] [facility] CPT-4: 35616 07/05/2017 OFFICE/OUTPATIENT SIT EST Diagnosis: Pneumonia, unspecified organism[ICD10: J18.9] Lisbeth VENCES ER [employer] [facility] CPT-4: 85636 03/04/2017 ([id number]) OFFICE/OUTPA TIENT VISIT EST Diagnosis: Polycystic ovarian syndrome[ICD10: E28.2] Diagnosis: Abnormal levels of other serum enzymes[ICD10: R74.8] Diagnosis: Nonalcoholic steatohepatitis (MOORE)[ICD10: K75.81] Diagnosis: Impaired glucose tolerance (oral)[ICD10: R73.02] Nirmala GIMENEZ [employer] KELLY DIAZ [employer] [facility] CPT-4: 84809 02/02/2017 ([id number]) OFFICE/OUTPA TIENT VISIT EST Diagnosis: VACCINE FOR TDAP[ICD10: Z23] Nirmala Murguia KELLYNDER [employer] [facility] CPT-4: 99652 11/30/2016 ([id number]) OFFICE/OUTPA TIENT VISIT EST Diagnosis: Cough[ICD10: R05] Diagnosis: Abnormal levels of other serum enzymes[ICD10: R74.8] Diagnosis: Family history of other endocrine, nutritional and metabolic diseases[ICD10: Z83.49] Nirmala JARAMILLO [facility] CPT-4: 29461 11/16/2016 ([id number]) OFFICE/OUTPA TIENT VISIT EST Diagnosis: Cough[ICD10: R05] Diagnosis: Other seasonal allergic rhinitis[ICD10: J30.2] Diagnosis: Abnormal levels of other serum enzymes[ICD10: R74.8] Nirmala LUONG [facility] CPT-4: 84821 09/06/2016 ([id number]) OFFICE/OUTPA TIENT VISIT EST Diagnosis: Cough[ICD10: R05] Diagnosis: Polycystic ovarian syndrome[ICD10: E28.2] Nirmala LUONG [facility] CPT-4: 99417 08/16/2016 ([id number]) OFFICE/OUTPA TIENT VISIT EST Diagnosis: Acute bronchitis, unspecified[ICD10: J20.9] Diagnosis: Acute upper respiratory infection, unspecified[ICD10: J06.9] Ananya John JARAMILLO [facility] CPT-4: 27430 06/23/2016 ([id number]) OFFICE/OUTPA TIENT VISIT EST Diagnosis: PNEUMOCOCCAL VACCINE[ICD10: Z23] Nirmala JARAMILLO [facility] CPT-4: 55918 03/09/2016 ([id number]) OFFICE/OUTPA TIENT VISIT EST Diagnosis: Pneumonia, unspecified organism[ICD10: J18.9] Diagnosis: Polycystic ovarian syndrome[ICD10: E28.2] Diagnosis: Generalized anxiety disorder[ICD10: F41.1] Nirmala LUONG [facility] CPT-4: 40336 12/18/2015 ([id number]) OFFICE/OUTPA TIENT VISIT EST Diagnosis: Cough[ICD10: R05] Diagnosis: Acute bronchospasm[ICD10: J98.01] Nirmala Ella GIMENEZ S. KELLY LUONG DO [employer] CPT-4: 28559 12/11/2015 ([id number]) OFFICE/OUTPA TIENT VISIT EST Diagnosis: Pneumonia, unspecified organism[ICD10: J18.9] Ananya JARAMILLO DO [employer] CPT-4: 78212 12/08/2015 OFFICE/OUTPATIENT SIT NEW Diagnosis: Pneumonia, unspecified organism[ICD10: J18.9] Ananya JARAMILLO DO [employer] CPT-4: 55175 12/01/2015 Plan of Care Planned Activity Notes [...] : I10 08/08/2018 Appointment: Nirmala Jaramillo WPtel: [address] [place], [place] [phone] [place] FOLLOW UP 08/08/2018 Visit Diagnosis Plan: [...] : E11.65 07/06/2018 Appointment: Nirmala Jaramillo WPtel: [address] [place], [place] [phone] [place] FOLLOW UP 07/06/2018 Appointment: Nirmala Jaramillo WPtel: [address] [place], [place] [phone] [place] Consult 06/22/2018 Patient Education: lisinopril- [email or web address] [phone] [email or web address] Completed 06/22/2018 Visit Diagnosis Plan: Dizziness and giddiness Discussion: Recommend 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 ICD-9 : 780.4 ICD-10 : R42 06/19/2018 Visit Diagnosis Plan: Essential (primary) hypertension Discussion: Increased lisinopril from 5 QD to 20 mg QD. Labs today- CBC, CMP, TSH, A1C. UA today- trace protein. hematuria (patient on period). ICD-9 : 401.9 ICD-10 : I10 06/19/2018 Appointment: Shell Vega [facility] [place] [phone] FOLLOW UP 06/19/2018 Visit Diagnosis Plan: Dizziness [...] : I10 06/13/2018 Appointment: Shell Vega [address] [place], [place] [phone] ACUTE ILLNESS 06/13/2018 Appointment: Nirmala Jaramillo WPtel: [phone] [facility] FLU SWAB 04/26/2018 Visit Diagnosis Plan: Pain in throat Discussion: Rapid Strep A- negative Throat culture- pending. Will call patient with results. Prednisone 10 mg TID x 5 days. Supportive care- fluids, tylenol for pain, humidified air. ICD-9 : 784.1 ICD-10 : R07.0 04/25/2018 Appointment: Shell Vega [address] [place] [address] ACUTE ILLNESS 04/25/2018 Visit Plan: Saline nasal [...] prn. Tyle... 04/14/2018 Appointment: Nirmala Jaramillo WPtel: [address] [place], [place] [phone] ACUTE ILLNESS 04/14/2018 Patient Education: prednisone- [employer] Coupon [phone] [email or web address] Completed 04/14/2018 Visit Diagnosis Plan: Pain in right leg Discussion: Check right tib/fib x-ray and start celebrex May need PT ICD-9 : 729.5 ICD-10 : M79.604 01/31/2018 Visit Diagnosis Plan: Sciatica, right side Discussion: Check L/S spine x-ray ICD-9 : 724.3 ICD-10 : M54.31 01/31/2018 Appointment: Nirmala Jaramillo WPtel: [address] [place], [place] [id number] FOLLOW UP 01/31/2018 Care Plan: X-RAY EXAM L-S SPINE 2/3 VWS LOINC : 43003-9 Pending 01/31/2018 Care Plan: X-RAY EXAM OF LOWER LEG LOINC : 32990-4 Pending 01/31/2018 Visit Diagnosis Plan: Pain in [...] ICD-10 : M79.604 01/23/2018 Appointment: Lisbeth Kruger [address] [place] [address] ACUTE ILLNESS 01/23/2018 Visit Diagnosis Plan: Acute [...] ICD-10 : J20.9 11/10/2017 Appointment: Lisbeth Kruger [address] [place] [address] ACUTE ILLNESS 11/10/2017 Patient Education: Patient Medication Summary Completed 11/10/2017 Care Plan: CHEST X-RAY 2VW FRONTAL&LATL LOINC : 89708-5 Pending 11/10/2017 Patient Education: Patient Medication Summary Completed 09/26/2017 Care Plan: A1C HPLC LO INC : 45062-4 Pending 09/26/2017 Visit Diagnosis Plan: Encounter for scre ening mammogram for malignant neoplasm of breast Discussion: mammogram ordered to be comp leted at [facility]. breast exam performed in office. ICD-9 : V76.11 ICD-10 : Z12.31 09/22/2017 Visit Diagnosis Plan: Impaired glucose tolerance (oral ) Discussion: metformin daily. will update fasting labs and patient to have completed this week or first part of next. ICD-9 : 790.22 ICD-10 : R73.02 09/22/2017 Visit Diagnosis Plan: Encounter for [facility] adult medical examination without abnormal findings Discussion: fasting blood work ordered t o be obtained at [facility] in the next few days [...] : Z01.411 09/22/2017 Appointment: Lisbeth Kruger [facility] Annual Well Visit 09/22/2017 Patient Education: Patient [...] : J01.90 07/05/2017 Appointment: Lisbeth Kruger [facility] ACUTE ILLNESS 07/05/2017 Patient Education: Patient [...] : J18.9 03/04/2017 Appointment: Lisbeth Kruger [facility] FOLLOW UP 03/04/2017 Patient Education: Patient [...] : R73.02 02/02/2017 Appointment: Nirmala Jaramillo WPtel: [address] [place], [place] [phone] FOLLOW UP 02/02/2017 Patient Education: Patient Medication Summary Completed 02/02/2017 Care Plan: Referral Order SNOMED-CT : 793344842 Pending 02/02/2017 Patient Education: Patient Medication Summary Completed 01/28/2017 Care Plan: ACUTE HEPATITIS PANEL LOINC : 18336-3 Pending 01/28/2017 Patient Education: Patient Medication Summary Completed 01/26/2017 Care Plan: COMPREHEN METABOLIC PANEL LOINC : 71500-0 Pending 01/26/2017 Care Plan: A1C HPLC LO INC : 27649-2 Pending 01/26/2017 Appointment: Nirmala Jaramillo WPtel: [address] [place] [address] INJECTION 11/30/2016 Referral: Sav Goff[address] [place] [address] Referral Initiated 11/30/2016 Patient Education: Patient [...] S90.852A 11/29/2016 Appointment: Nirmala Jaramillo WPtel: [address] [place], [place] [phone] ACUTE ILLNESS 11/29/2016 Patient Education: Patient Medication [...] : R74.8 11/16/2016 Appointment: Nirmala Jaramillo WPtel: [address] [place], [place] [phone] [place] FOLLOW UP 11/16/2016 Patient Education: Patient Medication Summary Completed 11/16/2016 Care Plan: Referral Order SNOMED-CT : 018124440 Pending 11/16/2016 Appointment: Nirmala Jaramillo WPtel: [address] [place], [place] [phone] [place] RESCHEDULED 11/08/2016 Visit Diagnosis Plan: Other hypertrophic disorders of the skin Discussion: Irritated skin tags excised at base and then bases cauterized ICD-9 : 701.9 ICD-10 : L91.8 10/05/2016 Appointment: Nirmala Jaramillo WPtel: [address] [place] [phone] confirmed-sp OFFICE SURGERY 10/05/2016 Patient Education: Patient Medication Summary Completed 10/05/2016 Appointment: Nirmala Jaramillo WPtel: [address] [place], [place] [phone] [place] Per doctor~sl 09/09 canceled due to work ~sl CANCELED 09/10/2016 Visit Diagnosis Plan: Cough Discussi on: Continue [...] : R74.8 09/06/2016 Appointment: Nirmala Jaramillo WPtel: [address] [place], [place] [phone] [place] 7/6 lm~sl FOLLOW UP 09/06/2016 Patient Education: Patient Medication Summary Completed 09/06/2016 Patient Education: Patient Medication Summary Completed 08/18/2016 Care Plan: ACUTE HEPATITIS PANEL LOINC : 55497-6 Pending 08/18/2016 Care Plan: TICKBORNE DISEASE PANEL [...] : E28.2 08/16/2016 Appointment: Nirmala Jaramillo WPtel: [address] [place], [place] [phone] 08/13 confirmed `sl WORK IN 08/16/2016 Patient Education: Patient Medication Summary Completed 08/16/2016 Care Plan: MAMMOGRAM SCREENING Grand mother Br Ca in late LOINC : 02712-4 Pending 08/16/2016 Patient Education: Patient Medication Summary Completed 07/27/2016 Visit Diagnosis Plan: Acute bronchitis, unspecified Discussion: Rxs as above Borrow neb machine until home with hers if needed OTC meds reviewed Watch BSs closely Follow up if not improving ICD-9 : 466.0 ICD-10 : J20.9 06/23/2016 Appointment: Ananya Lopez [address] [place] [address] ACUTE ILLNESS 06/23/2016 Patient Education: Patient Medication Summary Completed 06/23/2016 Appointment: Nirmala Jaramillo WPtel: [address] [place], [place] [phone] [place] INJECTION 03/09/2016 Patient Education: Patient Medication Summary Completed 03/09/2016 Appointment: Nirmala Jaramillo WPtel: [address] [place], [place] [phone] [place] INJECTION 02/16/2016 Visit Plan: Decrease Breo to 100/25 mcg 1p BID for another week Flu shot with Prevnar 13 next week if covered Refill metformin 12/18/2015 Appointment: [facility]irm[phone] 12/16 confirmed`sl FOLLOW UP 12/18/2015 Patient Education: [...] 1week 12/11/2015 Appointment: [facility]irmala Jar[facility]illo [facility]el[phone] AC[place] ILL[place] 12/11/2015 Patient Education: Patient Medication [...] worsening cough, etc 12/08/2015 Appointment: Ananya Lopez [address] [place], [place] [phone] 12/04 Lm~sl....confirmed-sp FOLLOW UP 12/08/2015 Patient Education: Patient Medication Summary Completed 12/08/2015 Visit Plan: Finish levaquin ordered by [employer] Add above meds has nebulizer machine she [...] 12/01/2015 Visit Plan: Finish levaquin ordered by [employer] Add above meds has nebulizer machine she [...] to improve 12/01/2015 Appointment: Ananya Lopez [address] [facility] 11/30 lm ~sl NEW PATIENT 12/01/2015 Patient Education: Patient Medication Summary Completed 12/01/2015 Referral: Chan Chavez WPtel: [address] [place] Referral Completed Referral: Dhruv Lubin WPtel: [address] Referral Initiated Instructions Comment . CXR negative [...] improve . Finish levaquin or dered by [facility] [...]
--- OUTSIDE RECORDS SUMMARY | 2019-05-18 13:27 | XMS REPORT | Continuity of Care Document ---
Author Organization Unknown Address Unknown Phone Unavailable Allergies Active Description Code Type Severity Reaction Onset Reported/Identified Relationship to Patient Clinical Status Yes No Allergy Information Available [id number] Drug Allergy Unknown N/A [id number] nogueira Allergy Mild N/V, SHAKING 05/11/2019 Medications There is no data. Problems Date Dx Coded Attending Type Code Diagnosis Diagnosed By 12/11/2015 MARYCHUY ESTES CAFETERIA SERVER Ot J18.9 PNEUMONIA, UNSPECIFIED ORGANISM 12/11/2015 MARYCHUY ESTES CAFETERIA SERVER Ot R05 COUGH 12/12/2015 MARYCHUY ESTES CAFETERIA SERVER Ot J18.9 PNEUMONIA, UNSPECIFIED ORGANISM 12/12/2015 MARYCHUY ESTES CAFETERIA SERVER Ot R05 COUGH 01/01/2016 MARYCHUY ESTES CAFETERIA SERVER Ot J18.9 PNEUMONIA, UNSPECIFIED ORGANISM 01/01/2016 MARYCHUY ESTES CAFETERIA SERVER Ot R05 COUGH 01/01/2016 MARYCHUY ESTES CAFETERIA SERVER Ot J18.9 PNEUMONIA, UNSPECIFIED ORGANISM 01/01/2016 MARYCHUY ESTES CAFETERIA SERVER Ot R05 COUGH 2016 MARYCHUY ESTES CAFETERIA SERVER Ot J18.9 PNEUMONIA, UNSPECIFIED ORGANISM 2016 MARYCHUY ESTES CAFETERIA SERVER Ot R05 COUGH 01/20/2016 MARYCHUY ESTES CAFETERIA SERVER Ot J18.9 PNEUMONIA, UNSPECIFIED ORGANISM 01/20/2016 MARYCHUY ESTES CAFETERIA SERVER Ot R05 COUGH 02/17/2016 MARYCHUY ESTES CAFETERIA SERVER Ot J18.9 PNEUMONIA, UNSPECIFIED ORGANISM 02/17/2016 MARYCHUY ESTES CAFETERIA SERVER Ot R05 COUGH 08/02/2016 NIRMALA JARAMILLO DO S Ot J06.9 ACUTE UPPER RESPIRATORY INFECTION, UNSPE 08/18/2016 NIRMALA JARAMILLO DO S Ot E28.2 POLYCYSTIC OVARIAN SYNDROME 08/18/2016 ORENDER DO, NIRMALA S Ot R05 COUGH 08/23/2016 ORENDER DO, NIRMALA S Ot E28.2 POLYCYSTIC OVARIAN SYNDROME 08/23/2016 ORENDER DO, NIRMALA S Ot R05 COUGH 10/08/2016 SUNITA LEES MD Ot G47.33 OBSTRUCTIVE SLEEP APNEA (ADULT) (PEDIATR 10/15/2016 MARYCHUY ESTES CAFETERIA SERVER Ot J18.9 PNEUMONIA, UNSPECIFIED ORGANISM 10/15/2016 MARYCHUY ESTES CAFETERIA SERVER Ot R05 COUGH 10/15/2016 ORENDER DO, NIRMALA S Ot J06.9 ACUTE UPPER RESPIRATORY INFECTION, UNSPE 10/15/2016 ORENDER DO, NIRMALA S Ot E28.2 POLYCYSTIC OVARIAN SYNDROME 10/15/2016 ORENDER DO, NIRMALA S Ot R05 COUGH 10/15/2016 ORENDER DO, NIRMALA S Ot R74.8 ABNORMAL LEVELS OF OTHER SERUM ENZYMES 10/21/2016 SUNITA LEES MD Ot J02 .9 ACUTE PHARYNGITIS, UNSPECIFIED 10/21/2016 SUNITA LEES MD Ot 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 10/21/2016 SUNITA LEES MD Ot R05 COUGH 10/21/2016 SUNITA LEES MD Ot R93 .8 ABNORMAL FINDINGS ON DIAGNOSTIC IMAGING 11/24/2016 ORENDER DO, NIRMALA S Ot R05 COUGH 11/24/2016 ORENDER DO, NIRMALA S Ot R05 COUGH 12/06/2016 ORENDER DO, NIRMALA S Ot R05 COUGH 12/06/2016 ORENDER DO, NIRMALA S Ot R53.83 OTHER FATIGUE 12/06/2016 ORENDER DO, NIRMALA S Ot R74.8 ABNORMAL LEVELS OF OTHER SERUM ENZYMES 12/09/2016 KAYLIE WOLFE CAFETERIA SERVER Ot J30.9 ALLERGIC RHINITIS, UNSPECIFIED 12/09/2016 KAYLIE WOLFE CAFETERIA SERVER Ot K44.9 DIAPHRAGMATIC HERNIA WITHOUT OBSTRUCTION 12/21/2016 MARYCHUY ESTES CAFETERIA SERVER Ot J18.9 PNEUMONIA, UNSPECIFIED ORGANISM 12/21/2016 MARYCHUY ESTES CAFETERIA SERVER Ot R05 COUGH 12/21/2016 ORENDER DO, NIRMALA S Ot J06.9 ACUTE UPPER RESPIRATORY INFECTION, UNSPE 12/21/2016 ORENDER DO, NIRMALA S Ot E28.2 POLYCYSTIC OVARIAN SYNDROME 12/21/2016 ORENDER DO, NIRMALA S Ot R05 COUGH 12/21/2016 ORENDER DO, NIRMALA S Ot R74.8 ABNORMAL LEVELS OF OTHER SERUM ENZYMES 12/21/2016 SUNITA LEES MD Ot J02 .9 ACUTE PHARYNGITIS, UNSPECIFIED 12/21/2016 SUNITA LEES MD Ot 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 12/21/2016 SUNITA LEES MD Ot R05 COUGH 12/21/2016 SUNITA LEES MD Ot R93 .8 ABNORMAL FINDINGS ON DIAGNOSTIC IMAGING 12/21/2016 ORENDER DO, NIRMALA S Ot R05 COUGH 12/21/2016 KAYLIE WOLFE CAFETERIA SERVER Ot J30.9 ALLERGIC RHINITIS, UNSPECIFIED 12/21/2016 KAYLIE WOLFE CAFETERIA SERVER Ot K44.9 DIAPHRAGMATIC HERNIA WITHOUT OBSTRUCTION 12/21/2016 ORENDER DO, NIRMALA S Ot R05 COUGH 12/21/2016 KELLYNDER DO, NIRMALA S Ot R53.83 OTHER FATIGUE 12/21/2016 ORENDER DO, NIRMALA S Ot R74.8 ABNORMAL LEVELS OF OTHER SERUM ENZYMES 12/28/2016 ORENDER DO, NIRMALA S Ot E28.2 POLYCYSTIC OVARIAN SYNDROME 12/28/2016 ORENDER DO, NIRMALA S Ot R05 COUGH 12/31/2016 SUNITA LEES MD Ot J02 .9 ACUTE PHARYNGITIS, UNSPECIFIED 12/31/2016 SUNITA LEES MD Ot 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 12/31/2016 SUNITA LEES MD Ot R05 COUGH 12/31/2016 SUNITA LEES MD Ot R93 .8 ABNORMAL FINDINGS ON DIAGNOSTIC IMAGING 02/09/2017 MARYCHUY ESTES CAFETERIA SERVER Ot J18.9 PNEUMONIA, UNSPECIFIED ORGANISM 02/09/2017 MARYCHUY ESTES CAFETERIA SERVER Ot R05 COUGH 02/09/2017 KELLYNDER DO, NIRMALA S Ot J06.9 ACUTE UPPER RESPIRATORY INFECTION, UNSPE 02/09/2017 ORENDER DO, NIRMALA S Ot E28.2 POLYCYSTIC OVARIAN SYNDROME 02/09/2017 ORENDER DO, NIRMALA S Ot R05 COUGH 02/09/2017 ORENDER DO, NIRMALA S Ot R74.8 ABNORMAL LEVELS OF OTHER SERUM ENZYMES 02/09/2017 USNITA LEES MD Ot J02 .9 ACUTE PHARYNGITIS, UNSPECIFIED 02/09/2017 SUNITA LEES MD Ot 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 02/09/2017 SUNITA LEES MD Ot R05 COUGH 02/09/2017 SUNITA LEES MD Ot R93 .8 ABNORMAL FINDINGS ON DIAGNOSTIC IMAGING 02/09/2017 ORENDER DO, NIRMALA S Ot R05 COUGH 02/09/2017 KAYLIE WOLFE CAFETERIA SERVER Ot J30.9 ALLERGIC RHINITIS, UNSPECIFIED 02/09/2017 KAYLIE WOLFE APRN Ot K44.9 DIAPHRAGMATIC HERNIA WITHOUT OBSTRUCTION 02/09/2017 ORENDER DO, NIRMALA S Ot R05 COUGH 02/09/2017 ORENDER DO, NIRMALA S Ot R53.83 OTHER FATIGUE 02/09/2017 ORENDER DO, NIRMALA S Ot R74.8 ABNORMAL LEVELS OF OTHER SERUM ENZYMES 02/09/2017 ORENDER DO, NIRMALA S Ot R73.9 HYPERGLYCEMIA, UNSPECIFIED 02/09/2017 ORENDER DO, NIRMALA S Ot R74.8 ABNORMAL LEVELS OF OTHER SERUM ENZYMES 02/16/2017 KAYLIE WOLFE CAFETERIA SERVER Ot J30.9 ALLERGIC RHINITIS, UNSPECIFIED 02/16/2017 KAYLIE WOLFE CAFETERIA SERVER Ot K44.9 DIAPHRAGMATIC HERNIA WITHOUT OBSTRUCTION 02/16/2017 ORENDER DO, NIRMALA S Ot R74.8 ABNORMAL LEVELS OF OTHER SERUM ENZYMES 03/11/2017 ORENDER DO, NIRMALA S Ot R74.8 ABNORMAL LEVELS OF OTHER SERUM ENZYMES 03/14/2017 ORENDER DO, NIRMALA S Ot J06.9 ACUTE UPPER RESPIRATORY INFECTION, UNSPE 07/05/2017 MARYCHUY ESTES CAFETERIA SERVER Ot J18.9 PNEUMONIA, UNSPECIFIED ORGANISM 07/05/2017 MARYCHUY ESTES CAFETERIA SERVER Ot R05 COUGH 07/05/2017 ORENDER DO, NIRMALA S Ot J06.9 ACUTE UPPER RESPIRATORY INFECTION, UNSPE 07/05/2017 ORENDER DO, NIRMALA S Ot E28.2 POLYCYSTIC OVARIAN SYNDROME 07/05/2017 ORENDER DO, NIRMALA S Ot R05 COUGH 07/05/2017 ORENDER DO, NIRMALA S Ot R74.8 ABNORMAL LEVELS OF OTHER SERUM ENZYMES 07/05/2017 SUNITA LEES MD Ot J02 .9 ACUTE PHARYNGITIS, UNSPECIFIED 07/05/2017 SUNITA LEES MD Ot 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 07/05/2017 SUNITA LEES MD Ot R05 COUGH 07/05/2017 SUNITA LEES MD Ot R93 .8 ABNORMAL FINDINGS ON DIAGNOSTIC IMAGING 07/05/2017 ORENDER DO, NIRMALA S Ot R05 COUGH 07/05/2017 KAYLIE WOLFE APRN Ot J30.9 ALLERGIC RHINITIS, UNSPECIFIED 07/05/2017 KAYLIE WOLFE APRN Ot K44.9 DIAPHRAGMATIC HERNIA WITHOUT OBSTRUCTION 07/05/2017 ORENDER DO, NIRMALA S Ot R05 COUGH 07/05/2017 ORENDER DO, NIRMALA S Ot R53.83 OTHER FATIGUE 07/05/2017 ORENDER DO, NIRMALA S Ot R74.8 ABNORMAL LEVELS OF OTHER SERUM ENZYMES 07/05/2017 ORENDER DO, NIRMALA S Ot R73.9 HYPERGLYCEMIA, UNSPECIFIED 07/05/2017 ORENDER DO, NIRMALA S Ot R74.8 ABNORMAL LEVELS OF OTHER SERUM ENZYMES 07/11/2017 MARYCHUY ESTES CAFETERIA SERVER Ot J18.9 PNEUMONIA, UNSPECIFIED ORGANISM 07/11/2017 MARYCHUY ESTES CAFETERIA SERVER Ot R05 COUGH 07/11/2017 ORENDER DO, NIRMALA S Ot J06.9 ACUTE UPPER RESPIRATORY INFECTION, UNSPE 07/11/2017 ORENDER DO, NIRMALA S Ot E28.2 POLYCYSTIC OVARIAN SYNDROME 07/11/2017 ORENDER DO, NIRMALA S Ot R05 COUGH 07/11/2017 ORENDER DO, NIRMALA S Ot R74.8 ABNORMAL LEVELS OF OTHER SERUM ENZYMES 07/11/2017 SUNITA LEES MD Ot J02 .9 ACUTE PHARYNGITIS, UNSPECIFIED 07/11/2017 SUNITA LEES MD Ot 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 07/11/2017 SUNITA LEES MD Ot R05 COUGH 07/11/2017 SUNITA LEES MD Ot R93 .8 ABNORMAL FINDINGS ON DIAGNOSTIC IMAGING 07/11/2017 ORENDER DO, NIRMALA S Ot R05 COUGH 07/11/2017 AIDEN, KAYLIE E CAFETERIA SERVER Ot J30.9 ALLERGIC RHINITIS, UNSPECIFIED 07/11/2017 KAYLIE WOLFE CAFETERIA SERVER Ot K44.9 DIAPHRAGMATIC HERNIA WITHOUT OBSTRUCTION 07/11/2017 ORENDER DO, NIRMALA S Ot R05 COUGH 07/11/2017 ORENDER DO, NIRMALA S Ot R53.83 OTHER FATIGUE 07/11/2017 ORENDER DO, NIRMALA S Ot R74.8 ABNORMAL LEVELS OF OTHER SERUM ENZYMES 07/11/2017 ORENDER DO, NIRMALA S Ot R73.9 HYPERGLYCEMIA, UNSPECIFIED 07/11/2017 ORENDER DO, NIRMALA S Ot R74.8 ABNORMAL LEVELS OF OTHER SERUM ENZYMES 07/14/2017 MARYCHUY ESTES CAFETERIA SERVER Ot J18.9 PNEUMONIA, UNSPECIFIED ORGANISM 07/14/2017 MARYCHUY ESTES CAFETERIA SERVER Ot R05 COUGH 07/14/2017 ORENDER DO, NIRMALA S Ot J06.9 ACUTE UPPER RESPIRATORY INFECTION, UNSPE 07/14/2017 ORENDER DO, NIRMALA S Ot E28.2 POLYCYSTIC OVARIAN SYNDROME 07/14/2017 ORENDER DO, NIRMALA S Ot R05 COUGH 07/14/2017 ORENDER DO, NIRMALA S Ot R74.8 ABNORMAL LEVELS OF OTHER SERUM ENZYMES 07/14/2017 NABEEL MCMAHAN, SUNITA P Ot J02 .9 ACUTE PHARYNGITIS, UNSPECIFIED 07/14/2017 NABEEL MCMAHAN, SUNITA Montiel Ot 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 07/14/2017 NABEEL MCMAHAN, SUNITA Montiel Ot R05 COUGH 07/14/2017 NABEEL MCMAHAN, SUNITA Montiel Ot R93 .8 ABNORMAL FINDINGS ON DIAGNOSTIC IMAGING 07/14/2017 ORENDER DO, NIRMALA S Ot R05 COUGH 07/14/2017 KAYLIE WOLFE CAFETERIA SERVER Ot J30.9 ALLERGIC RHINITIS, UNSPECIFIED 07/14/2017 KAYLIE WOLFE CAFETERIA SERVER Ot K44.9 DIAPHRAGMATIC HERNIA WITHOUT OBSTRUCTION 07/14/2017 ORENDER DO, NIRMALA S Ot R05 COUGH 07/14/2017 ORENDER DO, NIRMALA S Ot R53.83 OTHER FATIGUE 07/14/2017 ORENDER DO, NIRMALA S Ot R74.8 ABNORMAL LEVELS OF OTHER SERUM ENZYMES 07/14/2017 ORENDER DO, NIRMALA S Ot R73.9 HYPERGLYCEMIA, UNSPECIFIED 07/14/2017 ORENDER DO, NIRMALA S Ot R74.8 ABNORMAL LEVELS OF OTHER SERUM ENZYMES 07/15/2017 MARYCHUY ESTES CAFETERIA SERVER Ot J18.9 PNEUMONIA, UNSPECIFIED ORGANISM 07/15/2017 MARYCHUY ESTES CAFETERIA SERVER Ot R05 COUGH 07/15/2017 KELLYNDER , NIRMALA S Ot J06.9 ACUTE UPPER RESPIRATORY INFECTION, UNSPE 07/15/2017 ORENDER DO, NIRMALA S Ot E28.2 POLYCYSTIC OVARIAN SYNDROME 07/15/2017 ORENDER DO, NIRMALA S Ot R05 COUGH 07/15/2017 ORENDER DO, NIRMALA S Ot R74.8 ABNORMAL LEVELS OF OTHER SERUM ENZYMES 07/15/2017 NABEEL MCMAHAN, SUNITA P Ot J02 .9 ACUTE PHARYNGITIS, UNSPECIFIED 07/15/2017 NABEEL MCMAHAN, SUNITA Montiel Ot 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 07/15/2017 NABEEL MCMAHAN, SUNITA P Ot R05 COUGH 07/15/2017 NABEEL MCMAHAN, SUNITA Montiel Ot R93 .8 ABNORMAL FINDINGS ON DIAGNOSTIC IMAGING 07/15/2017 ORENDER DO, NIRMALA S Ot R05 COUGH 07/15/2017 KAYLIE WOLFE CAFETERIA SERVER Ot J30.9 ALLERGIC RHINITIS, UNSPECIFIED 07/15/2017 KAYLIE WOLFE CAFETERIA SERVER Ot K44.9 DIAPHRAGMATIC HERNIA WITHOUT OBSTRUCTION 07/15/2017 ORENDER DO, NIRMALA S Ot R05 COUGH 07/15/2017 ORENDER DO, NIRMALA S Ot R53.83 OTHER FATIGUE 07/15/2017 ORENDER DO, NIRMALA S Ot R74.8 ABNORMAL LEVELS OF OTHER SERUM ENZYMES 07/15/2017 ORENDER DO, NIRMALA S Ot R73.9 HYPERGLYCEMIA, UNSPECIFIED 07/15/2017 ORENDER DO, NIRMALA S Ot R74.8 ABNORMAL LEVELS OF OTHER SERUM ENZYMES 09/14/2017 MARYCHUY ESTES CAFETERIA SERVER Ot J18.9 PNEUMONIA, UNSPECIFIED ORGANISM 09/14/2017 MARYCHUY ESTES CAFETERIA SERVER Ot R05 COUGH 09/14/2017 KELLYNDER DO, NIRMALA S Ot J06.9 ACUTE UPPER RESPIRATORY INFECTION, UNSPE 09/14/2017 ORENDER DO, NIRMALA S Ot E28.2 POLYCYSTIC OVARIAN SYNDROME 09/14/2017 ORENDER DO, NIRMALA S Ot R05 COUGH 09/14/2017 ORENDER DO, NIRMALA S Ot R74.8 ABNORMAL LEVELS OF OTHER SERUM ENZYMES 09/14/2017 SUNITA LEES MD Ot J02 .9 ACUTE PHARYNGITIS, UNSPECIFIED 09/14/2017 SUNITA LEES MD Ot 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 09/14/2017 SUNITA LEES MD Ot R05 COUGH 09/14/2017 SUNITA LEES MD Ot R93 .8 ABNORMAL FINDINGS ON DIAGNOSTIC IMAGING 09/14/2017 ORENDER DO, NIRMALA S Ot R05 COUGH 09/14/2017 KAYLIE WOLFE CAFETERIA SERVER Ot J30.9 ALLERGIC RHINITIS, UNSPECIFIED 09/14/2017 KAYLIE WOLFE CAFETERIA SERVER Ot K44.9 DIAPHRAGMATIC HERNIA WITHOUT OBSTRUCTION 09/14/2017 ORENDER DO, NIRMALA S Ot R05 COUGH 09/14/2017 ORENDER DO, NIRMALA S Ot R53.83 OTHER FATIGUE 09/14/2017 ORENDER DO, NIRMALA S Ot R74.8 ABNORMAL LEVELS OF OTHER SERUM ENZYMES 09/14/2017 ORENDER DO, NIRMALA S Ot R73.9 HYPERGLYCEMIA, UNSPECIFIED 09/14/2017 ORENDER DO, NIRMALA S Ot R74.8 ABNORMAL LEVELS OF OTHER SERUM ENZYMES 09/23/2017 MARYCHUY ESTES CAFETERIA SERVER Ot J18.9 PNEUMONIA, UNSPECIFIED ORGANISM 09/23/2017 MARYCHUY ESTES CAFETERIA SERVER Ot R05 COUGH 09/23/2017 ORENDER DO, NIRMALA S Ot J06.9 ACUTE UPPER RESPIRATORY INFECTION, UNSPE 09/23/2017 ORENDER DO, NIRMALA S Ot E28.2 POLYCYSTIC OVARIAN SYNDROME 09/23/2017 ORENDER DO, NIRMALA S Ot R05 COUGH 09/23/2017 ORENDER DO, NIRMALA S Ot R74.8 ABNORMAL LEVELS OF OTHER SERUM ENZYMES 09/23/2017 SUNITA LEES MD Ot J02 .9 ACUTE PHARYNGITIS, UNSPECIFIED 09/23/2017 SUNITA LEES MD Ot 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 09/23/2017 SUNITA LEES MD Ot R05 COUGH 09/23/2017 SUNITA LEES MD Ot R93 .8 ABNORMAL FINDINGS ON DIAGNOSTIC IMAGING 09/23/2017 ORENDER DO, NIRMALA S Ot R05 COUGH 09/23/2017 KAYLIE WOLFE CAFETERIA SERVER Ot J30.9 ALLERGIC RHINITIS, UNSPECIFIED 09/23/2017 KAYLIE WOLFE CAFETERIA SERVER Ot K44.9 DIAPHRAGMATIC HERNIA WITHOUT OBSTRUCTION 09/23/2017 ORENDER DO, NIRMALA S Ot R05 COUGH 09/23/2017 ORENDER DO, NIRMALA S Ot R53.83 OTHER FATIGUE 09/23/2017 ORENDER DO, NIRMALA S Ot R74.8 ABNORMAL LEVELS OF OTHER SERUM ENZYMES 09/23/2017 ORENDER DO, NIRMALA S Ot R73.9 HYPERGLYCEMIA, UNSPECIFIED 09/23/2017 ORENDER DO, NIRMALA S Ot R74.8 ABNORMAL LEVELS OF OTHER SERUM ENZYMES 09/26/2017 LISBETH FAY R CAFETERIA SERVER Ot E28.2 POLYCYSTIC OVARIAN SYNDROME 09/26/2017 LISBETH FAY R CAFETERIA SERVER Ot R73.02 IMPAIRED GLUCOSE TOLERANCE (ORAL) 09/26/2017 BARRON FAYON R CAFETERIA SERVER Ot R74.8 ABNORMAL LEVELS OF OTHER SERUM ENZYMES 09/26/2017 BARRON FAYON R CAFETERIA SERVER Ot Z00.00 ENCNTR FOR GENERAL ADULT MEDICAL EXAM W/ 11/11/2017 LISBETH FAY R CAFETERIA SERVER Ot R05 COUGH 11/11/2017 NYA LISBETH R CAFETERIA SERVER Ot R06.2 WHEEZING 11/11/2017 NYA LISBETH R CAFETERIA SERVER Ot R09.89 OTH SYMPTOMS AND SIGNS INVOLVING THE CIR 11/25/2017 MARYCHUY ESTES CAFETERIA SERVER Ot J18.9 PNEUMONIA, UNSPECIFIED ORGANISM 11/25/2017 MARYCHUY ESTES CAFETERIA SERVER Ot R05 COUGH 11/25/2017 ORENDER DO, NIRMALA S Ot J06.9 ACUTE UPPER RESPIRATORY INFECTION, UNSPE 11/25/2017 ORENDER DO, NIRMALA S Ot E28.2 POLYCYSTIC OVARIAN SYNDROME 11/25/2017 ORENDER DO, NIRMALA S Ot R05 COUGH 11/25/2017 ORENDER DO, NIRMALA S Ot R74.8 ABNORMAL LEVELS OF OTHER SERUM ENZYMES 11/25/2017 NABEEL MCMAHAN, SUNITA Montiel Ot J02 .9 ACUTE PHARYNGITIS, UNSPECIFIED 11/25/2017 NABEEL MCMAHAN, SUNITA Montiel Ot 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 11/25/2017 NABEEL MCMAHAN, SUNITA Montiel Ot R05 COUGH 11/25/2017 SUNITA LEES MD Ot R93 .8 ABNORMAL FINDINGS ON DIAGNOSTIC IMAGING 11/25/2017 ORENDER DO, NIRMALA S Ot R05 COUGH 11/25/2017 KAYLIE WOLFE CAFETERIA SERVER Ot J30.9 ALLERGIC RHINITIS, UNSPECIFIED 11/25/2017 KAYLIE WOLFE CAFETERIA SERVER Ot K44.9 DIAPHRAGMATIC HERNIA WITHOUT OBSTRUCTION 11/25/2017 ORENDER DO, NIRMALA S Ot R05 COUGH 11/25/2017 ORENDER DO, NIRMALA S Ot R53.83 OTHER FATIGUE 11/25/2017 ORENDER DO, NIRMALA S Ot R74.8 ABNORMAL LEVELS OF OTHER SERUM ENZYMES 11/25/2017 ORENDER DO, NIRMALA S Ot R73.9 HYPERGLYCEMIA, UNSPECIFIED 11/25/2017 ORENDER DO, NIRMALA S Ot R74.8 ABNORMAL LEVELS OF OTHER SERUM ENZYMES 11/25/2017 LISBETH FAY CAFETERIA SERVER Ot Z12.31 ENCNTR SCREEN MAMMOGRAM FOR MALIGNANT NE 11/25/2017 LISBETH FAY CAFETERIA SERVER Ot E28.2 POLYCYSTIC OVARIAN SYNDROME 11/25/2017 LISBETH FAY R CAFETERIA SERVER Ot R73.02 IMPAIRED GLUCOSE TOLERANCE (ORAL) 11/25/2017 LISBETH FAY R CAFETERIA SERVER Ot R74.8 ABNORMAL LEVELS OF OTHER SERUM ENZYMES 11/25/2017 LISBETH FAY CAFETERIA SERVER Ot Z00.00 ENCNTR FOR GENERAL ADULT MEDICAL EXAM W/ 11/25/2017 LISBETH FAY CAFETERIA SERVER Ot R05 COUGH 11/25/2017 LISBETH FAY R CAFETERIA SERVER Ot R06.2 WHEEZING 11/25/2017 BARRON FAYON R CAFETERIA SERVER Ot R09.89 OTH SYMPTOMS AND SIGNS INVOLVING THE CIR 11/25/2017 MARYCHUY ESTES CAFETERIA SERVER Ot J18.9 PNEUMONIA, UNSPECIFIED ORGANISM 11/25/2017 MARYCHUY ESTES CAFETERIA SERVER Ot R05 COUGH 11/25/2017 ORENDER DO, NIRMALA S Ot J06.9 ACUTE UPPER RESPIRATORY INFECTION, UNSPE 11/25/2017 ORENDER DO, NIRMALA S Ot E28.2 POLYCYSTIC OVARIAN SYNDROME 11/25/2017 ORENDER DO, NIRMALA S Ot R05 COUGH 11/25/2017 KELLYNDER DO, NIRMALA S Ot R74.8 ABNORMAL LEVELS OF OTHER SERUM ENZYMES 11/25/2017 NABEEL MCMAHAN, SUNITA Montiel Ot J02 .9 ACUTE PHARYNGITIS, UNSPECIFIED 11/25/2017 NABEEL MCMAHAN, SUNITA Montiel Ot 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 11/25/2017 SUNITA LEES MD Ot R05 COUGH 11/25/2017 SUNITA LEES MD Ot R93 .8 ABNORMAL FINDINGS ON DIAGNOSTIC IMAGING 11/25/2017 KELLYNDER DO, NIRMALA S Ot R05 COUGH 11/25/2017 KAYLIE WOLFE APRN Ot J30.9 ALLERGIC RHINITIS, UNSPECIFIED 11/25/2017 KAYLIE WOLFE APRN Ot K44.9 DIAPHRAGMATIC HERNIA WITHOUT OBSTRUCTION 11/25/2017 KELLYNDER , NIRMALA S Ot R05 COUGH 11/25/2017 KELLYNDDEBORAH FRANKLIN, NIRMALA S Ot R53.83 OTHER FATIGUE 11/25/2017 KELLYNDER DO, NIRMALA S Ot R74.8 ABNORMAL LEVELS OF OTHER SERUM ENZYMES 11/25/2017 KELLYNDER , NIRMALA S Ot R73.9 HYPERGLYCEMIA, UNSPECIFIED 11/25/2017 ORENDER DO, NIRMALA S Ot R74.8 ABNORMAL LEVELS OF OTHER SERUM ENZYMES 11/25/2017 LISBETH FAY R CAFETERIA SERVER Ot Z12.31 ENCNTR SCREEN MAMMOGRAM FOR MALIGNANT NE 11/25/2017 BARRON FAYON R CAFETERIA SERVER Ot E28.2 POLYCYSTIC OVARIAN SYNDROME 11/25/2017 NYA LISBETH R CAFETERIA SERVER Ot R73.02 IMPAIRED GLUCOSE TOLERANCE (ORAL) 11/25/2017 NYA LISBETH R CAFETERIA SERVER Ot R74.8 ABNORMAL LEVELS OF OTHER SERUM ENZYMES 11/25/2017 BARRON FAYON R CAFETERIA SERVER Ot Z00.00 ENCNTR FOR GENERAL ADULT MEDICAL EXAM W/ 11/25/2017 LISBETH FAY R CAFETERIA SERVER Ot R05 COUGH 11/25/2017 KAYLAN FAYYSON R CAFETERIA SERVER Ot R06.2 WHEEZING 11/25/2017 BARRON FAYON R CAFETERIA SERVER Ot R09.89 OT SYMPTOMS AND SIGNS INVOLVING THE CIR 01/10/2018 MARYCHUY ESTES Esequiel CAFETERIA SERVER Ot J18.9 PNEUMONIA, UNSPECIFIED ORGANISM 01/10/2018 FRANKLYNPATRICIAMARYCHUY N CAFETERIA SERVER Ot R05 COUGH 01/10/2018 KELLYNDER DO, NIRMALA S Ot J06.9 ACUTE UPPER RESPIRATORY INFECTION, UNSPE 01/10/2018 ORENDER DO, NIRMALA S Ot E28.2 POLYCYSTIC OVARIAN SYNDROME 01/10/2018 ORENDER DO, NIRMALA S Ot R05 COUGH 01/10/2018 ORENDER DO, NIRMALA S Ot R74.8 ABNORMAL LEVELS OF OTHER SERUM ENZYMES 01/10/2018 NABEEL MCMAHAN, SUNITA P Ot J02 .9 ACUTE PHARYNGITIS, UNSPECIFIED 01/10/2018 NABEEL MCMAHAN, SUNITA P Ot 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 01/10/2018 NABEEL MCMAHAN, SUNITA P Ot R05 COUGH 01/10/2018 NABEEL MCMAHAN, SUNITA P Ot R93 .8 ABNORMAL FINDINGS ON DIAGNOSTIC IMAGING 01/10/2018 ORENDER DO, NIRMALA S Ot R05 COUGH 01/10/2018 KAYLIE WOLFE CAFETERIA SERVER Ot J30.9 ALLERGIC RHINITIS, UNSPECIFIED 01/10/2018 KAYLIE WOLFE APRN Ot K44.9 DIAPHRAGMATIC HERNIA WITHOUT OBSTRUCTION 01/10/2018 ORENDER DO, NIRMALA S Ot R05 COUGH 01/10/2018 ORENDER DO, NIRMALA S Ot R53.83 OTHER FATIGUE 01/10/2018 ORENDER DO, NIRMALA S Ot R74.8 ABNORMAL LEVELS OF OTHER SERUM ENZYMES 01/10/2018 ORENDER DO, NIRMALA S Ot R73.9 HYPERGLYCEMIA, UNSPECIFIED 01/10/2018 ORENDER DO, NIRMALA S Ot R74.8 ABNORMAL LEVELS OF OTHER SERUM ENZYMES 01/10/2018 LISBETH FAY CAFETERIA SERVER Ot Z12.31 ENCNTR SCREEN MAMMOGRAM FOR MALIGNANT NE 01/10/2018 LISBETH FAY CAFETERIA SERVER Ot E28.2 POLYCYSTIC OVARIAN SYNDROME 01/10/2018 LISBETH FAY CAFETERIA SERVER Ot R73.02 IMPAIRED GLUCOSE TOLERANCE (ORAL) 01/10/2018 LISBETH FAY CAFETERIA SERVER Ot R74.8 ABNORMAL LEVELS OF OTHER SERUM ENZYMES 01/10/2018 LISBETH FAY CAFETERIA SERVER Ot Z00.00 ENCNTR FOR GENERAL ADULT MEDICAL EXAM W/ 01/10/2018 LISBETH FAY CAFETERIA SERVER Ot R05 COUGH 01/10/2018 LISBETH FAY R CAFETERIA SERVER Ot R06.2 WHEEZING 01/10/2018 LISBETH FAY CAFETERIA SERVER Ot R09.89 OTH SYMPTOMS AND SIGNS INVOLVING THE CIR 01/18/2018 MARYCHUY ESTES CAFETERIA SERVER Ot J18.9 PNEUMONIA, UNSPECIFIED ORGANISM 01/18/2018 MARYCHUY ESTES CAFETERIA SERVER Ot R05 COUGH 01/18/2018 ORENDER DO, NIRMALA S Ot J06.9 ACUTE UPPER RESPIRATORY INFECTION, UNSPE 01/18/2018 ORENDER DO, NIRMALA S Ot E28.2 POLYCYSTIC OVARIAN SYNDROME 01/18/2018 ORENDER DO, NIRMALA S Ot R05 COUGH 01/18/2018 ORENDER DO, NIRMALA S Ot R74.8 ABNORMAL LEVELS OF OTHER SERUM ENZYMES 01/18/2018 NABEEL MCMAHAN, SUNITA P Ot J02 .9 ACUTE PHARYNGITIS, UNSPECIFIED 01/18/2018 NABEEL MCMAHAN, SUNITA Montiel Ot 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 01/18/2018 NABEEL MCMAHAN, SUNITA P Ot R05 COUGH 01/18/2018 NABEEL MCMAHAN, SUNITA Montiel Ot R93 .8 ABNORMAL FINDINGS ON DIAGNOSTIC IMAGING 01/18/2018 ORENDER DO, NIRMALA S Ot R05 COUGH 01/18/2018 KAYLIE WOLFE APRN Ot J30.9 ALLERGIC RHINITIS, UNSPECIFIED 01/18/2018 KAYLIE WOLFE APRN Ot K44.9 DIAPHRAGMATIC HERNIA WITHOUT OBSTRUCTION 01/18/2018 ORENDER DO, NIRMALA S Ot R05 COUGH 01/18/2018 ORENDER DO, NIRMALA S Ot R53.83 OTHER FATIGUE 01/18/2018 ORENDER DO, NIRMALA S Ot R74.8 ABNORMAL LEVELS OF OTHER SERUM ENZYMES 01/18/2018 ORENDER DO, NIRMALA S Ot R73.9 HYPERGLYCEMIA, UNSPECIFIED 01/18/2018 ORENDER DO, NIRMALA S Ot R74.8 ABNORMAL LEVELS OF OTHER SERUM ENZYMES 01/18/2018 LISBETH FAY R CAFETERIA SERVER Ot Z12.31 ENCNTR SCREEN MAMMOGRAM FOR MALIGNANT NE 01/18/2018 LISBETH FAY R CAFETERIA SERVER Ot E28.2 POLYCYSTIC OVARIAN SYNDROME 01/18/2018 LISBETH FAY R CAFETERIA SERVER Ot R73.02 IMPAIRED GLUCOSE TOLERANCE (ORAL) 01/18/2018 LISBETH FAY R CAFETERIA SERVER Ot R74.8 ABNORMAL LEVELS OF OTHER SERUM ENZYMES 01/18/2018 LISBETH FAY CAFETERIA SERVER Ot Z00.00 ENCNTR FOR GENERAL ADULT MEDICAL EXAM W/ 01/18/2018 NYA LISBETH R CAFETERIA SERVER Ot R05 COUGH 01/18/2018 NYA LISBETH R CAFETERIA SERVER Ot R06.2 WHEEZING 01/18/2018 NYA LISBETH R CAFETERIA SERVER Ot R09.89 OTH SYMPTOMS AND SIGNS INVOLVING THE CIR 01/31/2018 MARYCHUY ESTES CAFETERIA SERVER Ot J18.9 PNEUMONIA, UNSPECIFIED ORGANISM 01/31/2018 MARYCHUY ESTES CAFETERIA SERVER Ot R05 COUGH 01/31/2018 NIRMALA JARAMILLO DO S Ot J06.9 ACUTE UPPER RESPIRATORY INFECTION, UNSPE 01/31/2018 NIRMALA JARAMILLO DO S Ot E28.2 POLYCYSTIC OVARIAN SYNDROME 01/31/2018 NIRMALA JARAMILLO DO S Ot R05 COUGH 01/31/2018 NIRMALA JARAMILLO DO S Ot R74.8 ABNORMAL LEVELS OF OTHER SERUM ENZYMES 01/31/2018 SUNITA LEES MD Ot J02 .9 ACUTE PHARYNGITIS, UNSPECIFIED 01/31/2018 SUNITA LEES MD Ot 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 01/31/2018 SUNITA LEES MD Ot R05 COUGH 01/31/2018 SUNITA LEES MD Ot R93 .8 ABNORMAL FINDINGS ON DIAGNOSTIC IMAGING 01/31/2018 NIRMALA JARAMILLO DO S Ot R05 COUGH 01/31/2018 KAYLIE WOLFE APRN Ot J30.9 ALLERGIC RHINITIS, UNSPECIFIED 01/31/2018 KAYLIE WOLFE APRN Ot K44.9 DIAPHRAGMATIC HERNIA WITHOUT OBSTRUCTION 01/31/2018 NIRMALA JARAMILLO DO S Ot R05 COUGH 01/31/2018 NIRMALA JARAMILLO DO S Ot R53.83 OTHER FATIGUE 01/31/2018 ORENDER DO, NIRMLAA S Ot R74.8 ABNORMAL LEVELS OF OTHER SERUM ENZYMES 01/31/2018 KELLYNDER DO, NIRMALA S Ot R73.9 HYPERGLYCEMIA, UNSPECIFIED 01/31/2018 ORENDER DO, NIRMALA S Ot R74.8 ABNORMAL LEVELS OF OTHER SERUM ENZYMES 01/31/2018 LISBETH FAY R CAFETERIA SERVER Ot Z12.31 ENCNTR SCREEN MAMMOGRAM FOR MALIGNANT NE 01/31/2018 NYA, LISBETH R CAFETERIA SERVER Ot E28.2 POLYCYSTIC OVARIAN SYNDROME 01/31/2018 NYA, LISBETH R CAFETERIA SERVER Ot R73.02 IMPAIRED GLUCOSE TOLERANCE (ORAL) 01/31/2018 NYA, LISBETH R CAFETERIA SERVER Ot R74.8 ABNORMAL LEVELS OF OTHER SERUM ENZYMES 01/31/2018 NYA, LISBETH R CAFETERIA SERVER Ot Z00.00 ENCNTR FOR GENERAL ADULT MEDICAL EXAM W/ 01/31/2018 NYA LISBETH R CAFETERIA SERVER Ot R05 COUGH 01/31/2018 NYA, LISBETH R CAFETERIA SERVER Ot R06.2 WHEEZING 01/31/2018 NYA, LISBETH R CAFETERIA SERVER Ot R09.89 OTH SYMPTOMS AND SIGNS INVOLVING THE CIR 02/01/2018 KELLYNDER DO, NIRMALA S Ot M43.16 SPONDYLOLISTHESIS, LUMBAR REGION 02/01/2018 KELLYNDER DO, NIRMALA S Ot M47.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, NADINE 02/06/2018 MARYCHUY ESTES CAFETERIA SERVER Ot J18.9 PNEUMONIA, UNSPECIFIED ORGANISM 02/06/2018 MARYCHUY ESTES CAFETERIA SERVER Ot R05 COUGH 02/06/2018 KELLYNDER DO, NIRMALA S Ot J06.9 ACUTE UPPER RESPIRATORY INFECTION, UNSPE 02/06/2018 ORENDER DO, NIRMALA S Ot E28.2 POLYCYSTIC OVARIAN SYNDROME 02/06/2018 ORENDER DO, NIRMALA S Ot R05 COUGH 02/06/2018 ORENDER DO, NIRMALA S Ot R74.8 ABNORMAL LEVELS OF OTHER SERUM ENZYMES 02/06/2018 NABEEL MCMAHAN, SUNITA Montiel Ot J02 .9 ACUTE PHARYNGITIS, UNSPECIFIED 02/06/2018 SUNITA LEES MD Ot 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 02/06/2018 NABEEL MCMAHAN, SUNITA Montiel Ot R05 COUGH 02/06/2018 NABEEL MCMAHAN, SUNITA Montiel Ot R93 .8 ABNORMAL FINDINGS ON DIAGNOSTIC IMAGING 02/06/2018 ORENDER DO, NIRMALA S Ot R05 COUGH 02/06/2018 KAYLIE WOLFE CAFETERIA SERVER Ot J30.9 ALLERGIC RHINITIS, UNSPECIFIED 02/06/2018 KAYLIE WOLFE CAFETERIA SERVER Ot K44.9 DIAPHRAGMATIC HERNIA WITHOUT OBSTRUCTION 02/06/2018 ORENDER DO, NIRMALA S Ot R05 COUGH 02/06/2018 ORENDER DO, NIRMALA S Ot R53.83 OTHER FATIGUE 02/06/2018 ORENDER DO, NIRMALA S Ot R74.8 ABNORMAL LEVELS OF OTHER SERUM ENZYMES 02/06/2018 ORENDER DO, NIRMALA S Ot R73.9 HYPERGLYCEMIA, UNSPECIFIED 02/06/2018 ORENDER DO, NIRMALA S Ot R74.8 ABNORMAL LEVELS OF OTHER SERUM ENZYMES 02/06/2018 BARRON FAYON R CAFETERIA SERVER Ot Z12.31 ENCNTR SCREEN MAMMOGRAM FOR MALIGNANT NE 02/06/2018 KAYLAN FAYYSON R CAFETERIA SERVER Ot E28.2 POLYCYSTIC OVARIAN SYNDROME 02/06/2018 NYA LISBETH R CAFETERIA SERVER Ot R73.02 IMPAIRED GLUCOSE TOLERANCE (ORAL) 02/06/2018 BARRON FAYON R CAFETERIA SERVER Ot R74.8 ABNORMAL LEVELS OF OTHER SERUM ENZYMES 02/06/2018 NYA LISBETH R CAFETERIA SERVER Ot Z00.00 ENCNTR FOR GENERAL ADULT MEDICAL EXAM W/ 02/06/2018 BARRON FAYON R CAFETERIA SERVER Ot R05 COUGH 02/06/2018 NYA LISBETH R CAFETERIA SERVER Ot R06.2 WHEEZING 02/06/2018 NYA LISBETH R CAFETERIA SERVER Ot R09.89 OTH SYMPTOMS AND SIGNS INVOLVING THE CIR 02/06/2018 ORENDER DO, NIRMALA S Ot M43.16 SPONDYLOLISTHESIS, LUMBAR REGION 02/06/2018 KELLYNDER DO, NIRMALA S Ot M47.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, NADINE 02/07/2018 NYA LISBETH R CAFETERIA SERVER Ot E28.2 POLYCYSTIC OVARIAN SYNDROME 02/07/2018 LISBETH FAY CAFETERIA SERVER Ot R73.02 IMPAIRED GLUCOSE TOLERANCE (ORAL) 02/07/2018 LISBETH FAY CAFETERIA SERVER Ot R74.8 ABNORMAL LEVELS OF OTHER SERUM ENZYMES 02/07/2018 LISBETH FAY CAFETERIA SERVER Ot Z00.00 ENCNTR FOR GENERAL ADULT MEDICAL EXAM W/ 02/14/2018 LISBETH FAY CAFETERIA SERVER Ot Z12.31 ENCNTR SCREEN MAMMOGRAM FOR MALIGNANT NE 02/14/2018 MARYCHUY ESTES CAFETERIA SERVER Ot J18.9 PNEUMONIA, UNSPECIFIED ORGANISM 02/14/2018 MARYCHUY ESTES CAFETERIA SERVER Ot R05 COUGH 02/14/2018 ORENDER DO, NIRMALA S Ot J06.9 ACUTE UPPER RESPIRATORY INFECTION, UNSPE 02/14/2018 ORENDER DO, NIRMALA S Ot E28.2 POLYCYSTIC OVARIAN SYNDROME 02/14/2018 ORENDER DO, NIRMALA S Ot R05 COUGH 02/14/2018 ORENDER DO, NIRMALA S Ot R74.8 ABNORMAL LEVELS OF OTHER SERUM ENZYMES 02/14/2018 NABEEL MCMAHAN, SUNITA P Ot J02 .9 ACUTE PHARYNGITIS, UNSPECIFIED 02/14/2018 NABEEL MCMAHAN, SUNITA Montiel Ot 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 02/14/2018 NABEEL MCMAHAN, SUNITA P Ot R05 COUGH 02/14/2018 NABEEL MCMAHAN, SUNITA Montiel Ot R93 .8 ABNORMAL FINDINGS ON DIAGNOSTIC IMAGING 02/14/2018 ORENDER DO, NIRMALA S Ot R05 COUGH 02/14/2018 KAYLIE WOLFE APRN Ot J30.9 ALLERGIC RHINITIS, UNSPECIFIED 02/14/2018 KAYLIE WOLFE APRN Ot K44.9 DIAPHRAGMATIC HERNIA WITHOUT OBSTRUCTION 02/14/2018 ORENDER DO, NIRMALA S Ot R05 COUGH 02/14/2018 ORENDER DO, NIRMALA S Ot R53.83 OTHER FATIGUE 02/14/2018 ORENDER DO, NIRMALA S Ot R74.8 ABNORMAL LEVELS OF OTHER SERUM ENZYMES 02/14/2018 ORENDER DO, NIRMALA S Ot R73.9 HYPERGLYCEMIA, UNSPECIFIED 02/14/2018 ORENDER DO, NIRMALA S Ot R74.8 ABNORMAL LEVELS OF OTHER SERUM ENZYMES 02/14/2018 NYA, LISBETH R CAFETERIA SERVER Ot Z12.31 ENCNTR SCREEN MAMMOGRAM FOR MALIGNANT NE 02/14/2018 LISBETH FAY R CAFETERIA SERVER Ot E28.2 POLYCYSTIC OVARIAN SYNDROME 02/14/2018 LISBETH FAY R CAFETERIA SERVER Ot R73.02 IMPAIRED GLUCOSE TOLERANCE (ORAL) 02/14/2018 LISBETH FAY R CAFETERIA SERVER Ot R74.8 ABNORMAL LEVELS OF OTHER SERUM ENZYMES 02/14/2018 LISBETH FAY CAFETERIA SERVER Ot Z00.00 ENCNTR FOR GENERAL ADULT MEDICAL EXAM W/ 02/14/2018 NYA LISBETH R CAFETERIA SERVER Ot R05 COUGH 02/14/2018 BARRON FAYON R CAFETERIA SERVER Ot R06.2 WHEEZING 02/14/2018 LISBETH FAY R CAFETERIA SERVER Ot R09.89 OTH SYMPTOMS AND SIGNS INVOLVING THE CIR 02/14/2018 ROSCOE FRANKLIN NIRMALA S Ot M43.16 SPONDYLOLISTHESIS, LUMBAR REGION 02/14/2018 ROSCOE FRANKLIN NIRMALA S Ot M47.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, NADINE 02/14/2018 MARYCHUY ESTES CAFETERIA SERVER Ot J18.9 PNEUMONIA, UNSPECIFIED ORGANISM 02/14/2018 MARYCHUY ESTES CAFETERIA SERVER Ot R05 COUGH 02/14/2018 ROSCOE FRANKLIN NIRMALA S Ot J06.9 ACUTE UPPER RESPIRATORY INFECTION, UNSPE 02/14/2018 ROSCOE FRANKLIN NIRMALA S Ot E28.2 POLYCYSTIC OVARIAN SYNDROME 02/14/2018 JOHNSON JARAMILLO DOLINE S Ot R05 COUGH 02/14/2018 HENOK JARAMILLO DOQUELINE S Ot R74.8 ABNORMAL LEVELS OF OTHER SERUM ENZYMES 02/14/2018 SUNITA LEES MD Ot J02 .9 ACUTE PHARYNGITIS, UNSPECIFIED 02/14/2018 SUNITA LEES MD Ot 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 02/14/2018 SUNITA LEES MD Ot R05 COUGH 02/14/2018 SUNITA LEES MD Ot R93 .8 ABNORMAL FINDINGS ON DIAGNOSTIC IMAGING 02/14/2018 HENOK JARAMILLO DOQUELINE S Ot R05 COUGH 02/14/2018 KAYLIE WOLFE CAFETERIA SERVER Ot J30.9 ALLERGIC RHINITIS, UNSPECIFIED 02/14/2018 KAYLIE WOLFE CAFETERIA SERVER Ot K44.9 DIAPHRAGMATIC HERNIA WITHOUT OBSTRUCTION 02/14/2018 ORENDER DO, NIRMALA S Ot R05 COUGH 02/14/2018 ORENDER DO, NIRMALA S Ot R53.83 OTHER FATIGUE 02/14/2018 ORENDER DO, NIRMALA S Ot R74.8 ABNORMAL LEVELS OF OTHER SERUM ENZYMES 02/14/2018 ORENDER DO, NIRMALA S Ot R73.9 HYPERGLYCEMIA, UNSPECIFIED 02/14/2018 ORENDER DO, NIRMALA S Ot R74.8 ABNORMAL LEVELS OF OTHER SERUM ENZYMES 02/14/2018 LISBETH FAY R CAFETERIA SERVER Ot Z12.31 ENCNTR SCREEN MAMMOGRAM FOR MALIGNANT NE 02/14/2018 LISBETH FAY R CAFETERIA SERVER Ot E28.2 POLYCYSTIC OVARIAN SYNDROME 02/14/2018 BARRON FAYON R CAFETERIA SERVER Ot R73.02 IMPAIRED GLUCOSE TOLERANCE (ORAL) 02/14/2018 LISBETH FAY CAFETERIA SERVER Ot R74.8 ABNORMAL LEVELS OF OTHER SERUM ENZYMES 02/14/2018 LISBETH FAY CAFETERIA SERVER Ot Z00.00 ENCNTR FOR GENERAL ADULT MEDICAL EXAM W/ 02/14/2018 LISBETH FAY CAFETERIA SERVER Ot R05 COUGH 02/14/2018 NYA LISBETH R CAFETERIA SERVER Ot R06.2 WHEEZING 02/14/2018 NYA LISBETH R CAFETERIA SERVER Ot R09.89 OTH SYMPTOMS AND SIGNS INVOLVING THE CIR 02/14/2018 ORENDER DO, NIRMALA S Ot M43.16 SPONDYLOLISTHESIS, LUMBAR REGION 02/14/2018 ORENDER DO, NIRMALA S Ot M47.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, NADINE 02/14/2018 MARYCHUY ESTES CAFETERIA SERVER Ot J18.9 PNEUMONIA, UNSPECIFIED ORGANISM 02/14/2018 MARYCHUY ESTES CAFETERIA SERVER Ot R05 COUGH 02/14/2018 ORENDER DO, NIRMALA S Ot J06.9 ACUTE UPPER RESPIRATORY INFECTION, UNSPE 02/14/2018 ORENDER DO, NIRMALA S Ot E28.2 POLYCYSTIC OVARIAN SYNDROME 02/14/2018 ORENDER DO, NIRMALA S Ot R05 COUGH 02/14/2018 ORENDER DO, NIRMALA S Ot R74.8 ABNORMAL LEVELS OF OTHER SERUM ENZYMES 02/14/2018 NABEEL MCMAHAN, SUNITA P Ot J02 .9 ACUTE PHARYNGITIS, UNSPECIFIED 02/14/2018 NABEEL MCMAHAN, SUNITA Montiel Ot 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 02/14/2018 NABEEL MCMAHAN, SUNITA P Ot R05 COUGH 02/14/2018 NABEEL MCMAHAN, SUNITA Montiel Ot R93 .8 ABNORMAL FINDINGS ON DIAGNOSTIC IMAGING 02/14/2018 KELLYNDER DO NIRMALA S Ot R05 COUGH 02/14/2018 KAYLIE WOLFE CAFETERIA SERVER Ot J30.9 ALLERGIC RHINITIS, UNSPECIFIED 02/14/2018 KAYLIE WOLFE CAFETERIA SERVER Ot K44.9 DIAPHRAGMATIC HERNIA WITHOUT OBSTRUCTION 02/14/2018 KELLYNDER , NIRMALA S Ot R05 COUGH 02/14/2018 KELLYNDER , NIRMALA S Ot R53.83 OTHER FATIGUE 02/14/2018 KELLYNDER DO NIRMALA S Ot R74.8 ABNORMAL LEVELS OF OTHER SERUM ENZYMES 02/14/2018 HENOK JARAMILLO DOQUELINE S Ot R73.9 HYPERGLYCEMIA, UNSPECIFIED 02/14/2018 KELLYNDER DO, NIRMALA S Ot R74.8 ABNORMAL LEVELS OF OTHER SERUM ENZYMES 02/14/2018 BARRON FAYON R CAFETERIA SERVER Ot Z12.31 ENCNTR SCREEN MAMMOGRAM FOR MALIGNANT NE 02/14/2018 NYA LISBETH R CAFETERIA SERVER Ot E28.2 POLYCYSTIC OVARIAN SYNDROME 02/14/2018 NYA LISBETH R CAFETERIA SERVER Ot R73.02 IMPAIRED GLUCOSE TOLERANCE (ORAL) 02/14/2018 BARRON FAYON R CAFETERIA SERVER Ot R74.8 ABNORMAL LEVELS OF OTHER SERUM ENZYMES 02/14/2018 NYA LISBETH R CAFETERIA SERVER Ot Z00.00 ENCNTR FOR GENERAL ADULT MEDICAL EXAM W/ 02/14/2018 BARRON FAYON R CAFETERIA SERVER Ot R05 COUGH 02/14/2018 NYA LISBETH R CAFETERIA SERVER Ot R06.2 WHEEZING 02/14/2018 NYA LISBETH R CAFETERIA SERVER Ot R09.89 OTH SYMPTOMS AND SIGNS INVOLVING THE CIR 02/14/2018 KELLYNDDEBORAH FRANKLIN NIRMALA S Ot M43.16 SPONDYLOLISTHESIS, LUMBAR REGION 02/14/2018 ORENDER DO, NIRMALA S Ot M47.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, NADINE 02/15/2018 MARYCHUY ESTES CAFETERIA SERVER Ot J18.9 PNEUMONIA, UNSPECIFIED ORGANISM 02/15/2018 MARYCHUY ESTES CAFETERIA SERVER Ot R05 COUGH 02/15/2018 ORENDER DO, NIRMALA S Ot J06.9 ACUTE UPPER RESPIRATORY INFECTION, UNSPE 02/15/2018 ORENDER DO, NIRMALA S Ot E28.2 POLYCYSTIC OVARIAN SYNDROME 02/15/2018 ORENDER DO, NIRMALA S Ot R05 COUGH 02/15/2018 ORENDER DO, NIRMALA S Ot R74.8 ABNORMAL LEVELS OF OTHER SERUM ENZYMES 02/15/2018 NABEEL MCMAHAN, SUNITA P Ot J02 .9 ACUTE PHARYNGITIS, UNSPECIFIED 02/15/2018 NABEEL MCMAHAN, SUNITA P Ot 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 02/15/2018 NABEEL MCMAHAN, SUNITA P Ot R05 COUGH 02/15/2018 NABEEL MCMAHAN, SUNITA Montiel Ot R93 .8 ABNORMAL FINDINGS ON DIAGNOSTIC IMAGING 02/15/2018 ORENDER DO, NIRMALA S Ot R05 COUGH 02/15/2018 KALYIE WOLFE CAFETERIA SERVER Ot J30.9 ALLERGIC RHINITIS, UNSPECIFIED 02/15/2018 KAYLIE WOLFE CAFETERIA SERVER Ot K44.9 DIAPHRAGMATIC HERNIA WITHOUT OBSTRUCTION 02/15/2018 ORENDER DO, NIRMALA S Ot R05 COUGH 02/15/2018 ORENDER DO, NIRMALA S Ot R53.83 OTHER FATIGUE 02/15/2018 ORENDER DO, NIRMALA S Ot R74.8 ABNORMAL LEVELS OF OTHER SERUM ENZYMES 02/15/2018 ORENDER DO, NIRMALA S Ot R73.9 HYPERGLYCEMIA, UNSPECIFIED 02/15/2018 ORENDER DO, NIRMALA S Ot R74.8 ABNORMAL LEVELS OF OTHER SERUM ENZYMES 02/15/2018 LISBETH FAY CAFETERIA SERVER Ot Z12.31 ENCNTR SCREEN MAMMOGRAM FOR MALIGNANT NE 02/15/2018 LISBETH FAY CAFETERIA SERVER Ot E28.2 POLYCYSTIC OVARIAN SYNDROME 02/15/2018 LISBETH FYA CAFETERIA SERVER Ot R73.02 IMPAIRED GLUCOSE TOLERANCE (ORAL) 02/15/2018 NYA, LISBETH R CAFETERIA SERVER Ot R74.8 ABNORMAL LEVELS OF OTHER SERUM ENZYMES 02/15/2018 NYA, LISBETH R CAFETERIA SERVER Ot Z00.00 ENCNTR FOR GENERAL ADULT MEDICAL EXAM W/ 02/15/2018 NYABARRON ARTON R CAFETERIA SERVER Ot R05 COUGH 02/15/2018 NYA, LISBETH R CAFETERIA SERVER Ot R06.2 WHEEZING 02/15/2018 NYA, LISBETH R CAFETERIA SERVER Ot R09.89 OTH SYMPTOMS AND SIGNS INVOLVING THE CIR 02/15/2018 ORENDER DO, NIRMALA S Ot M43.16 SPONDYLOLISTHESIS, LUMBAR REGION 02/15/2018 ORENDER DO, NIRMALA S Ot M47.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, NADINE 03/02/2018 NYA LISBETH R CAFETERIA SERVER Ot E28.2 POLYCYSTIC OVARIAN SYNDROME 03/02/2018 NYABARRON ARTON R CAFETERIA SERVER Ot R73.02 IMPAIRED GLUCOSE TOLERANCE (ORAL) 03/02/2018 NYA LISBETH R CAFETERIA SERVER Ot R74.8 ABNORMAL LEVELS OF OTHER SERUM ENZYMES 03/02/2018 NYALISBETH ART R CAFETERIA SERVER Ot Z00.00 ENCNTR FOR GENERAL ADULT MEDICAL EXAM W/ 03/30/2018 MARYCHUY ESTES CAFETERIA SERVER Ot J18.9 PNEUMONIA, UNSPECIFIED ORGANISM 03/30/2018 MARYCHUY ESTES CAFETERIA SERVER Ot R05 COUGH 03/30/2018 KELLYNDER DO NIRMALA S Ot J06.9 ACUTE UPPER RESPIRATORY INFECTION, UNSPE 03/30/2018 KELLYNDER DO NIRMALA S Ot E28.2 POLYCYSTIC OVARIAN SYNDROME 03/30/2018 ORENDER DO, NIRMALA S Ot R05 COUGH 03/30/2018 KELLYNDER DO, NIRMALA S Ot R74.8 ABNORMAL LEVELS OF OTHER SERUM ENZYMES 03/30/2018 NABEEL MCMAHAN, SUNITA P Ot J02 .9 ACUTE PHARYNGITIS, UNSPECIFIED 03/30/2018 SUNITA LEES MD Ot 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 03/30/2018 NABEEL MCMAHAN, SUNITA P Ot R05 COUGH 03/30/2018 SUNITA LEES MD Ot R93 .8 ABNORMAL FINDINGS ON DIAGNOSTIC IMAGING 03/30/2018 KELLYNDER DO NIRMALA S Ot R05 COUGH 03/30/2018 KAYLIE WOLFE CAFETERIA SERVER Ot J30.9 ALLERGIC RHINITIS, UNSPECIFIED 03/30/2018 KAYLIE WOLFE CAFETERIA SERVER Ot K44.9 DIAPHRAGMATIC HERNIA WITHOUT OBSTRUCTION 03/30/2018 ORENDER DO, NIRMALA S Ot R05 COUGH 03/30/2018 ORENDER DO, NIRMALA S Ot R53.83 OTHER FATIGUE 03/30/2018 ORENDER DO, NIRMALA S Ot R74.8 ABNORMAL LEVELS OF OTHER SERUM ENZYMES 03/30/2018 ORENDER DO, NIRMALA S Ot R73.9 HYPERGLYCEMIA, UNSPECIFIED 03/30/2018 ORENDER DO, NIRMALA S Ot R74.8 ABNORMAL LEVELS OF OTHER SERUM ENZYMES 03/30/2018 LISBETH FAY CAFETERIA SERVER Ot Z12.31 ENCNTR SCREEN MAMMOGRAM FOR MALIGNANT NE 03/30/2018 LISBETH FAY CAFETERIA SERVER Ot E28.2 POLYCYSTIC OVARIAN SYNDROME 03/30/2018 LISBETH FAY CAFETERIA SERVER Ot R73.02 IMPAIRED GLUCOSE TOLERANCE (ORAL) 03/30/2018 LISBETH FAY R CAFETERIA SERVER Ot R74.8 ABNORMAL LEVELS OF OTHER SERUM ENZYMES 03/30/2018 LISBETH FAY CAFETERIA SERVER Ot Z00.00 ENCNTR FOR GENERAL ADULT MEDICAL EXAM W/ 03/30/2018 LISBETH FAY CAFETERIA SERVER Ot R05 COUGH 03/30/2018 LISBETH FAY R CAFETERIA SERVER Ot R06.2 WHEEZING 03/30/2018 LISBETH FAY R CAFETERIA SERVER Ot R09.89 OTH SYMPTOMS AND SIGNS INVOLVING THE CIR 03/30/2018 ORENDER DO, NIRMALA S Ot M43.16 SPONDYLOLISTHESIS, LUMBAR REGION 03/30/2018 ORENDER DO, NIRMALA S Ot M47.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, NADINE 03/30/2018 MARYCHUY ESTES CAFETERIA SERVER Ot J18.9 PNEUMONIA, UNSPECIFIED ORGANISM 03/30/2018 MARYCHUY ESTES CAFETERIA SERVER Ot R05 COUGH 03/30/2018 ORENDER DO, NIRMALA S Ot J06.9 ACUTE UPPER RESPIRATORY INFECTION, UNSPE 03/30/2018 ORENDER DO, NIRMALA S Ot E28.2 POLYCYSTIC OVARIAN SYNDROME 03/30/2018 ORENDER , NIRMALA S Ot R05 COUGH 03/30/2018 KELLYNDER , NIRMALA S Ot R74.8 ABNORMAL LEVELS OF OTHER SERUM ENZYMES 03/30/2018 NABEEL MCMAHAN, SUNITA P Ot J02 .9 ACUTE PHARYNGITIS, UNSPECIFIED 03/30/2018 NABEEL MCMAHAN, SUNITA Montiel Ot 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 03/30/2018 SUNITA LEES MD Ot R05 COUGH 03/30/2018 SUNITA LEES MD Ot R93 .8 ABNORMAL FINDINGS ON DIAGNOSTIC IMAGING 03/30/2018 KELLYNDER , NIRMALA S Ot R05 COUGH 03/30/2018 KAYLIE WOLFE CAFETERIA SERVER Ot J30.9 ALLERGIC RHINITIS, UNSPECIFIED 03/30/2018 KAYLIE WOLFE APRN Ot K44.9 DIAPHRAGMATIC HERNIA WITHOUT OBSTRUCTION 03/30/2018 KELLYNDER DO, NIRMALA S Ot R05 COUGH 03/30/2018 KELLYNDDEBORAH FRANKLIN, NIRMALA S Ot R53.83 OTHER FATIGUE 03/30/2018 KELLYNDER , NIRMALA S Ot R74.8 ABNORMAL LEVELS OF OTHER SERUM ENZYMES 03/30/2018 KELLYNDER , NIRMALA S Ot R73.9 HYPERGLYCEMIA, UNSPECIFIED 03/30/2018 ORENDER DO, NIRMALA S Ot R74.8 ABNORMAL LEVELS OF OTHER SERUM ENZYMES 03/30/2018 LISBETH FAY CAFETERIA SERVER Ot Z12.31 ENCNTR SCREEN MAMMOGRAM FOR MALIGNANT NE 03/30/2018 LISBETH FAY R CAFETERIA SERVER Ot E28.2 POLYCYSTIC OVARIAN SYNDROME 03/30/2018 LISBETH FAY R CAFETERIA SERVER Ot R73.02 IMPAIRED GLUCOSE TOLERANCE (ORAL) 03/30/2018 LISBETH FAY R CAFETERIA SERVER Ot R74.8 ABNORMAL LEVELS OF OTHER SERUM ENZYMES 03/30/2018 LISBETH FAY R CAFETERIA SERVER Ot Z00.00 ENCNTR FOR GENERAL ADULT MEDICAL EXAM W/ 03/30/2018 LISBETH FAY R CAFETERIA SERVER Ot R05 COUGH 03/30/2018 LISBETH FAY CAFETERIA SERVER Ot R06.2 WHEEZING 03/30/2018 LISBETH FAY R CAFETERIA SERVER Ot R09.89 OTH SYMPTOMS AND SIGNS INVOLVING THE CIR 03/30/2018 ORENDER DO, NIRMALA S Ot M43.16 SPONDYLOLISTHESIS, LUMBAR REGION 03/30/2018 KELLYNDER , NIRMALA S Ot M47.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, NADINE 04/26/2018 NYALISBETH ART R CAFETERIA SERVER Ot Z12.31 ENCNTR SCREEN MAMMOGRAM FOR MALIGNANT NE 05/05/2018 NYA, LISBETH R CAFETERIA SERVER Ot E28.2 POLYCYSTIC OVARIAN SYNDROME 05/05/2018 NYA, LISBETH R CAFETERIA SERVER Ot R73.02 IMPAIRED GLUCOSE TOLERANCE (ORAL) 05/05/2018 NYA, LISBETH R CAFETERIA SERVER Ot R74.8 ABNORMAL LEVELS OF OTHER SERUM ENZYMES 05/05/2018 NYA, LISBETH R CAFETERIA SERVER Ot Z00.00 ENCNTR FOR GENERAL ADULT MEDICAL EXAM W05/05/2018 NYA LISBETH R CAFETERIA SERVER Ot E28.2 POLYCYSTIC OVARIAN SYNDROME 05/05/2018 NYA, LISBETH R CAFETERIA SERVER Ot R73.02 IMPAIRED GLUCOSE TOLERANCE (ORAL) 05/05/2018 NYA, LISBETH R CAFETERIA SERVER Ot R74.8 ABNORMAL LEVELS OF OTHER SERUM ENZYMES 05/05/2018 NYA, LISBETH R CAFETERIA SERVER Ot Z00.00 ENCNTR FOR GENERAL ADULT MEDICAL EXAM W05/22/2018 MARYCHUY ESTES CAFETERIA SERVER Ot J18.9 PNEUMONIA, UNSPECIFIED ORGANISM 05/22/2018 MARYCHUY ESTES CAFETERIA SERVER Ot R05 COUGH 05/22/2018 KELLYNDER HENOK FRANKLINNIRMALA S Ot J06.9 ACUTE UPPER RESPIRATORY INFECTION, UNSPE 05/22/2018 KELLYNDER , NIRMALA S Ot E28.2 POLYCYSTIC OVARIAN SYNDROME 05/22/2018 KELLYNDER , NIRMALA S Ot R05 COUGH 05/22/2018 HENOK JARAMILLO DOQUELINE S Ot R74.8 ABNORMAL LEVELS OF OTHER SERUM ENZYMES 05/22/2018 NABEEL MCMAHAN, SUNITA Montiel Ot J02 .9 ACUTE PHARYNGITIS, UNSPECIFIED 05/22/2018 NABEEL MCMAHAN, SUNITA Montiel Ot 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 05/22/2018 NABEEL MCMAHAN, SUNITA Montiel Ot R05 COUGH 05/22/2018 SUNITA LEES MD Ot R93 .8 ABNORMAL FINDINGS ON DIAGNOSTIC IMAGING 05/22/2018 KELLYNDER DO, NIRMALA S Ot R05 COUGH 05/22/2018 KAYLIE WOLFE CAFETERIA SERVER Ot J30.9 ALLERGIC RHINITIS, UNSPECIFIED 05/22/2018 KAYLIE WOLFE CAFETERIA SERVER Ot K44.9 DIAPHRAGMATIC HERNIA WITHOUT OBSTRUCTION 05/22/2018 ORENDER DO, NIRMALA S Ot R05 COUGH 05/22/2018 ORENDER DO, NIRMALA S Ot R53.83 OTHER FATIGUE 05/22/2018 ORENDER DO, NIRMALA S Ot R74.8 ABNORMAL LEVELS OF OTHER SERUM ENZYMES 05/22/2018 NYALISBETH Carola CAFETERIA SERVER Ot Z12.31 ENCNTR SCREEN MAMMOGRAM FOR MALIGNANT NE 05/22/2018 ORENDER DO, NIRMALA S Ot M43.16 SPONDYLOLISTHESIS, LUMBAR REGION 05/22/2018 ORENDER DO, NIRMALA S Ot M47.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, NADINE 05/22/2018 MARYCHUY ESTES CAFETERIA SERVER Ot J18.9 PNEUMONIA, UNSPECIFIED ORGANISM 05/22/2018 MARYCHUY ESTES CAFETERIA SERVER Ot R05 COUGH 05/22/2018 KELLYNDER , NIRMALA S Ot J06.9 ACUTE UPPER RESPIRATORY INFECTION, UNSPE 05/22/2018 ORENDER , NIRMALA S Ot E28.2 POLYCYSTIC OVARIAN SYNDROME 05/22/2018 KELLYNDER DO, NIRMALA S Ot R05 COUGH 05/22/2018 KELLYNDER DO, NIRMALA S Ot R74.8 ABNORMAL LEVELS OF OTHER SERUM ENZYMES 05/22/2018 SUNITA LEES MD Ot J02 .9 ACUTE PHARYNGITIS, UNSPECIFIED 05/22/2018 SUNITA LEES MD Ot 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 05/22/2018 SUNITA LEES MD Ot R05 COUGH 05/22/2018 SUNITA LEES MD Ot R93 .8 ABNORMAL FINDINGS ON DIAGNOSTIC IMAGING 05/22/2018 ORENDER DO, NIRMALA S Ot R05 COUGH 05/22/2018 KAYLIE WOLFE CAFETERIA SERVER Ot J30.9 ALLERGIC RHINITIS, UNSPECIFIED 05/22/2018 KAYLIE WOLFE CAFETERIA SERVER Ot K44.9 DIAPHRAGMATIC HERNIA WITHOUT OBSTRUCTION 05/22/2018 ORENDER DO, NIRMALA S Ot R05 COUGH 05/22/2018 ORENDER DO, NIRMALA S Ot R53.83 OTHER FATIGUE 05/22/2018 ORENDER DO, NIRMALA S Ot R74.8 ABNORMAL LEVELS OF OTHER SERUM ENZYMES 05/22/2018 ORENDER DO, NRIMALA S Ot R73.9 HYPERGLYCEMIA, UNSPECIFIED 05/22/2018 ORENDER DO, NIRMALA S Ot R74.8 ABNORMAL LEVELS OF OTHER SERUM ENZYMES 05/22/2018 LISBETH FAY R CAFETERIA SERVER Ot Z12.31 ENCNTR SCREEN MAMMOGRAM FOR MALIGNANT NE 05/22/2018 NYA LISBETH R CAFETERIA SERVER Ot R05 COUGH 05/22/2018 NYA LISBETH R CAFETERIA SERVER Ot R06.2 WHEEZING 05/22/2018 NYA LISBETH R CAFETERIA SERVER Ot R09.89 OTH SYMPTOMS AND SIGNS INVOLVING THE CIR 05/22/2018 ORENDER , NIRMALA S Ot M43.16 SPONDYLOLISTHESIS, LUMBAR REGION 05/22/2018 ORENDER DO, NIRMALA S Ot M47.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, NADINE 05/23/2018 KAYLIE WOLFE CAFETERIA SERVER Ot J30.9 ALLERGIC RHINITIS, UNSPECIFIED 05/23/2018 KAYLIE WOLFE CAFETERIA SERVER Ot K44.9 DIAPHRAGMATIC HERNIA WITHOUT OBSTRUCTION 06/12/2018 MARYCHUY ESTES CAFETERIA SERVER Ot J18.9 PNEUMONIA, UNSPECIFIED ORGANISM 06/12/2018 MARYCHUY ESTES CAFETERIA SERVER Ot R05 COUGH 06/12/2018 KELLYNDER DO, NIRMALA S Ot J06.9 ACUTE UPPER RESPIRATORY INFECTION, UNSPE 06/12/2018 ORENDER DO, NIRMALA S Ot E28.2 POLYCYSTIC OVARIAN SYNDROME 06/12/2018 ORENDER DO, NIRMALA S Ot R05 COUGH 06/12/2018 ORENDER DO, NIRMALA S Ot R74.8 ABNORMAL LEVELS OF OTHER SERUM ENZYMES 06/12/2018 NABEEL MCMAHAN, SUNITA Montiel Ot J02 .9 ACUTE PHARYNGITIS, UNSPECIFIED 06/12/2018 SUNITA LEES MD Ot 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 06/12/2018 NABEEL MCMAHAN, SUNITA Motniel Ot R05 COUGH 06/12/2018 SUNITA LEES MD Ot R93 .8 ABNORMAL FINDINGS ON DIAGNOSTIC IMAGING 06/12/2018 KELLYNDER DO, NIRMALA S Ot R05 COUGH 06/12/2018 ORENDER DO, NIRMALA S Ot R05 COUGH 06/12/2018 ORENDER DO, NIRMALA S Ot R53.83 OTHER FATIGUE 06/12/2018 ORENDER DO, NIRMALA S Ot R74.8 ABNORMAL LEVELS OF OTHER SERUM ENZYMES 06/12/2018 KELLYNDER DOHENOKNIRMALA S Ot R73.9 HYPERGLYCEMIA, UNSPECIFIED 06/12/2018 ORENDER DO, NIRMALA S Ot R74.8 ABNORMAL LEVELS OF OTHER SERUM ENZYMES 06/12/2018 BARRON FAYON R CAFETERIA SERVER Ot Z12.31 ENCNTR SCREEN MAMMOGRAM FOR MALIGNANT NE 06/12/2018 LISBETH FAY R CAFETERIA SERVER Ot E28.2 POLYCYSTIC OVARIAN SYNDROME 06/12/2018 KAYLAN FAYYSON R CAFETERIA SERVER Ot R73.02 IMPAIRED GLUCOSE TOLERANCE (ORAL) 06/12/2018 BARRON FAYON R CAFETERIA SERVER Ot R74.8 ABNORMAL LEVELS OF OTHER SERUM ENZYMES 06/12/2018 BARRON FAYON R CAFETERIA SERVER Ot Z00.00 ENCNTR FOR GENERAL ADULT MEDICAL EXAM W/ 06/12/2018 BARRON FAYON R CAFETERIA SERVER Ot R05 COUGH 06/12/2018 NYA LISBETH R CAFETERIA SERVER Ot R06.2 WHEEZING 06/12/2018 NYA LISBETH R CAFETERIA SERVER Ot R09.89 OTH SYMPTOMS AND SIGNS INVOLVING THE CIR 06/12/2018 KELLYNDER JOHNSON FRANKLINLINE S Ot M43.16 SPONDYLOLISTHESIS, LUMBAR REGION 06/12/2018 KELLYNDER DO, NIRMALA S Ot M47.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, NADINE 06/21/2018 MARYCHUY ESTES CAFETERIA SERVER Ot J18.9 PNEUMONIA, UNSPECIFIED ORGANISM 06/21/2018 MARYCHUY ESTES CAFETERIA SERVER Ot R05 COUGH 06/21/2018 KELLYNDER , NIRMALA S Ot J06.9 ACUTE UPPER RESPIRATORY INFECTION, UNSPE 06/21/2018 KELLYNDER DO, NIRMALA S Ot E28.2 POLYCYSTIC OVARIAN SYNDROME 06/21/2018 KELLYNDER DO, NIRMALA S Ot R05 COUGH 06/21/2018 ORENDER DO, NIRMALA S Ot R74.8 ABNORMAL LEVELS OF OTHER SERUM ENZYMES 06/21/2018 SUNITA LEES MD Ot J02 .9 ACUTE PHARYNGITIS, UNSPECIFIED 06/21/2018 SUNITA LEES MD Ot 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 06/21/2018 SUNITA LEES MD Ot R05 COUGH 06/21/2018 SUNITA LEES MD Ot R93 .8 ABNORMAL FINDINGS ON DIAGNOSTIC IMAGING 06/21/2018 ORENDER DO, NIRMALA S Ot R05 COUGH 06/21/2018 ORENDER DO, NIRMALA S Ot R05 COUGH 06/21/2018 ORENDER DO, NIRMALA S Ot R53.83 OTHER FATIGUE 06/21/2018 ORENDER DO, NIRMALA S Ot R74.8 ABNORMAL LEVELS OF OTHER SERUM ENZYMES 06/21/2018 ORENDER DO, NIRMALA S Ot R73.9 HYPERGLYCEMIA, UNSPECIFIED 06/21/2018 ORENDER DO, NIRMALA S Ot R74.8 ABNORMAL LEVELS OF OTHER SERUM ENZYMES 06/21/2018 LISBETH FAY R CAFETERIA SERVER Ot Z12.31 ENCNTR SCREEN MAMMOGRAM FOR MALIGNANT NE 06/21/2018 LISBETH FAY R CAFETERIA SERVER Ot E28.2 POLYCYSTIC OVARIAN SYNDROME 06/21/2018 LISBETH FAY R CAFETERIA SERVER Ot R73.02 IMPAIRED GLUCOSE TOLERANCE (ORAL) 06/21/2018 LISBETH FAY R CAFETERIA SERVER Ot R74.8 ABNORMAL LEVELS OF OTHER SERUM ENZYMES 06/21/2018 LISBETH FAY R CAFETERIA SERVER Ot Z00.00 ENCNTR FOR GENERAL ADULT MEDICAL EXAM W/ 06/21/2018 LISBETH FAY R CAFETERIA SERVER Ot R05 COUGH 06/21/2018 LISBETH FAY R CAFETERIA SERVER Ot R06.2 WHEEZING 06/21/2018 BARRON FAYON R CAFETERIA SERVER Ot R09.89 OTH SYMPTOMS AND SIGNS INVOLVING THE CIR 06/21/2018 ORENDER DO, NIRMALA S Ot M43.16 SPONDYLOLISTHESIS, LUMBAR REGION 06/21/2018 ORENDER DO, NIRMALA S Ot M47.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, NADINE 06/27/2018 MARYCHUY ESTES CAFETERIA SERVER Ot J18.9 PNEUMONIA, UNSPECIFIED ORGANISM 06/27/2018 MARYCHUY ESTES CAFETERIA SERVER Ot R05 COUGH 06/27/2018 ORENDER DO, NIRMALA S Ot J06.9 ACUTE UPPER RESPIRATORY INFECTION, UNSPE 06/27/2018 ORENDER DO, NIRMALA S Ot E28.2 POLYCYSTIC OVARIAN SYNDROME 06/27/2018 ORENDER DO, NIRMALA S Ot R05 COUGH 06/27/2018 ORENDER DO, NIRMALA S Ot R74.8 ABNORMAL LEVELS OF OTHER SERUM ENZYMES 06/27/2018 NABEEL MCMAHAN, SUNITA Montiel Ot J02 .9 ACUTE PHARYNGITIS, UNSPECIFIED 06/27/2018 NABEEL MCMAHAN, SUNITA Montiel Ot 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 06/27/2018 NABEEL MCMAHAN, SUNITA Montiel Ot R05 COUGH 06/27/2018 NABEEL MCMAHAN, SUNITA Montiel Ot R93 .8 ABNORMAL FINDINGS ON DIAGNOSTIC IMAGING 06/27/2018 ORENDER DO, NIRMALA S Ot R05 COUGH 06/27/2018 ORENDER DO, NIRMALA S Ot R05 COUGH 06/27/2018 ORENDER DO, NIRMALA S Ot R53.83 OTHER FATIGUE 06/27/2018 ORENDER DO, NIRMALA S Ot R74.8 ABNORMAL LEVELS OF OTHER SERUM ENZYMES 06/27/2018 ORENDER DO, NIRMALA S Ot R73.9 HYPERGLYCEMIA, UNSPECIFIED 06/27/2018 ORENDER DO, NIRMALA S Ot R74.8 ABNORMAL LEVELS OF OTHER SERUM ENZYMES 06/27/2018 LISBETH FAY CAFETERIA SERVER Ot Z12.31 ENCNTR SCREEN MAMMOGRAM FOR MALIGNANT NE 06/27/2018 LISBETH FAY R CAFETERIA SERVER Ot E28.2 POLYCYSTIC OVARIAN SYNDROME 06/27/2018 BARRON FAYON R CAFETERIA SERVER Ot R73.02 IMPAIRED GLUCOSE TOLERANCE (ORAL) 06/27/2018 LISBETH FAY R CAFETERIA SERVER Ot R74.8 ABNORMAL LEVELS OF OTHER SERUM ENZYMES 06/27/2018 LISBETH FAY R CAFETERIA SERVER Ot Z00.00 ENCNTR FOR GENERAL ADULT MEDICAL EXAM W/ 06/27/2018 LISBETH FAY CAFETERIA SERVER Ot R05 COUGH 06/27/2018 KAYLAN FAYYSON R CAFETERIA SERVER Ot R06.2 WHEEZING 06/27/2018 LISBETH FAY CAFETERIA SERVER Ot R09.89 OTH SYMPTOMS AND SIGNS INVOLVING THE CIR 06/27/2018 ORENDER DO, NIRMALA S Ot M43.16 SPONDYLOLISTHESIS, LUMBAR REGION 06/27/2018 ORENDER DO, NIRMALA S Ot M47.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, NADINE 06/28/2018 ANCA BLACKMAN CAFETERIA SERVER Ot R03.0 ELEVATED BLOOD-PRESSURE READING, W/O ANSLEY 08/02/2018 ANCA BLACKMAN CAFETERIA SERVER Ot I10 ESSENTIAL (PRIMARY) HYPERTENSION 08/12/2018 MARYCHUY ESTES CAFETERIA SERVER Ot J18.9 PNEUMONIA, UNSPECIFIED ORGANISM 08/12/2018 MARYCHUY ESTES CAFETERIA SERVER Ot R05 COUGH 08/12/2018 ORENDER DO, NIRMALA S Ot J06.9 ACUTE UPPER RESPIRATORY INFECTION, UNSPE 08/12/2018 ORENDER DO, NIRMALA S Ot E28.2 POLYCYSTIC OVARIAN SYNDROME 08/12/2018 ORENDER DO, NIRMALA S Ot R05 COUGH 08/12/2018 ORENDER DO, NIRMALA S Ot R74.8 ABNORMAL LEVELS OF OTHER SERUM ENZYMES 08/12/2018 SUNITA LEES MD Ot J02 .9 ACUTE PHARYNGITIS, UNSPECIFIED 08/12/2018 SUNITA LEES MD Ot 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 08/12/2018 SUNITA LEES MD Ot R05 COUGH 08/12/2018 SUNITA LEES MD Ot R93 .8 ABNORMAL FINDINGS ON DIAGNOSTIC IMAGING 08/12/2018 ORENDER DO, NIRMALA S Ot R05 COUGH 08/12/2018 ORENDER DO, NIRMALA S Ot R05 COUGH 08/12/2018 ORENDER DO, NIRMALA S Ot R53.83 OTHER FATIGUE 08/12/2018 ORENDER DO, NIRMALA S Ot R74.8 ABNORMAL LEVELS OF OTHER SERUM ENZYMES 08/12/2018 ORENDER DO, NIRMALA S Ot R73.9 HYPERGLYCEMIA, UNSPECIFIED 08/12/2018 ORENDER DO, NIRMALA S Ot R74.8 ABNORMAL LEVELS OF OTHER SERUM ENZYMES 08/12/2018 LISBETH FAY CAFETERIA SERVER Ot Z12.31 ENCNTR SCREEN MAMMOGRAM FOR MALIGNANT NE 08/12/2018 LISBETH FAY R CAFETERIA SERVER Ot E28.2 POLYCYSTIC OVARIAN SYNDROME 08/12/2018 LISBETH FAY R CAFETERIA SERVER Ot R73.02 IMPAIRED GLUCOSE TOLERANCE (ORAL) 08/12/2018 BARRON FAYON R CAFETERIA SERVER Ot R74.8 ABNORMAL LEVELS OF OTHER SERUM ENZYMES 08/12/2018 BARRON FAYON R CAFETERIA SERVER Ot Z00.00 ENCNTR FOR GENERAL ADULT MEDICAL EXAM W/ 08/12/2018 NYA LISBETH R CAFETERIA SERVER Ot R05 COUGH 08/12/2018 NYA LISBETH R CAFETERIA SERVER Ot R06.2 WHEEZING 08/12/2018 BARRON FAYON R CAFETERIA SERVER Ot R09.89 OTH SYMPTOMS AND SIGNS INVOLVING THE CIR 08/12/2018 HENOK JARAMILLO DOQUELINE S Ot M43.16 SPONDYLOLISTHESIS, LUMBAR REGION 08/12/2018 HENOK JARAMILLO DOQUELINE S Ot M47.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, NADINE 08/12/2018 ANCA BLACKMAN CAFETERIA SERVER Ot I10 ESSENTIAL (PRIMARY) HYPERTENSION 08/12/2018 MARYCHUY ESTES CAFETERIA SERVER Ot J18.9 PNEUMONIA, UNSPECIFIED ORGANISM 08/12/2018 MARYCHUY ESTES CAFETERIA SERVER Ot R05 COUGH 08/12/2018 NIRMALA JARAMILLO DO S Ot J06.9 ACUTE UPPER RESPIRATORY INFECTION, UNSPE 08/12/2018 JOHNSON JARAMILLO DOLINE S Ot E28.2 POLYCYSTIC OVARIAN SYNDROME 08/12/2018 NIRMALA JARAMILLO DO S Ot R05 COUGH 08/12/2018 NIRMALA JARAMILLO DO S Ot R74.8 ABNORMAL LEVELS OF OTHER SERUM ENZYMES 08/12/2018 SUNITA LEES MD Ot J02 .9 ACUTE PHARYNGITIS, UNSPECIFIED 08/12/2018 SUNITA LEES MD Ot 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 08/12/2018 SUNITA LEES MD Ot R05 COUGH 08/12/2018 SUNITA LEES MD Ot R93 .8 ABNORMAL FINDINGS ON DIAGNOSTIC IMAGING 08/12/2018 KELLYNDER HENOK FRANKLINNIRMALA S Ot R05 COUGH 08/12/2018 JOHNSON JARAMILLO DOLINE S Ot R05 COUGH 08/12/2018 ORENDER DO, NIRMALA S Ot R53.83 OTHER FATIGUE 08/12/2018 ORENDER DO, NIRMALA S Ot R74.8 ABNORMAL LEVELS OF OTHER SERUM ENZYMES 08/12/2018 ORENDER DO, NIRMALA S Ot R73.9 HYPERGLYCEMIA, UNSPECIFIED 08/12/2018 ORENDER DO, NIRMALA S Ot R74.8 ABNORMAL LEVELS OF OTHER SERUM ENZYMES 08/12/2018 NYA, LISBETH R CAFETERIA SERVER Ot Z12.31 ENCNTR SCREEN MAMMOGRAM FOR MALIGNANT NE 08/12/2018 NYA, LISBETH R CAFETERIA SERVER Ot E28.2 POLYCYSTIC OVARIAN SYNDROME 08/12/2018 NYA, LISBETH R CAFETERIA SERVER Ot R73.02 IMPAIRED GLUCOSE TOLERANCE (ORAL) 08/12/2018 NYA, LISBETH R CAFETERIA SERVER Ot R74.8 ABNORMAL LEVELS OF OTHER SERUM ENZYMES 08/12/2018 NYA, LISBETH R CAFETERIA SERVER Ot Z00.00 ENCNTR FOR GENERAL ADULT MEDICAL EXAM W/ 08/12/2018 NYA LISBETH R CAFETERIA SERVER Ot R05 COUGH 08/12/2018 NYA, LISBETH R CAFETERIA SERVER Ot R06.2 WHEEZING 08/12/2018 NYA, LISBETH R CAFETERIA SERVER Ot R09.89 OTH SYMPTOMS AND SIGNS INVOLVING THE CIR 08/12/2018 ORENDER DO, NIRMALA S Ot M43.16 SPONDYLOLISTHESIS, LUMBAR REGION 08/12/2018 ORENDER DO, NIRMALA S Ot M47.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, NADINE 08/12/2018 ANCA BLACKMAN CAFETERIA SERVER Ot I10 ESSENTIAL (PRIMARY) HYPERTENSION 08/12/2018 MARYCHUY ESTES CAFETERIA SERVER Ot J18.9 PNEUMONIA, UNSPECIFIED ORGANISM 08/12/2018 MARYCHUY ESTES CAFETERIA SERVER Ot R05 COUGH 08/12/2018 ORENDER DO, NIRMALA S Ot J06.9 ACUTE UPPER RESPIRATORY INFECTION, UNSPE 08/12/2018 ORENDER DO, NIRMALA S Ot E28.2 POLYCYSTIC OVARIAN SYNDROME 08/12/2018 ORENDER DO, NIRMALA S Ot R05 COUGH 08/12/2018 ORENDER DO, NIRMALA S Ot R74.8 ABNORMAL LEVELS OF OTHER SERUM ENZYMES 08/12/2018 SUNITA LEES MD Ot J02 .9 ACUTE PHARYNGITIS, UNSPECIFIED 08/12/2018 SUNITA LEES MD Ot 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 08/12/2018 SUNITA LEES MD Ot R05 COUGH 08/12/2018 SUNITA LEES MD Ot R93 .8 ABNORMAL FINDINGS ON DIAGNOSTIC IMAGING 08/12/2018 ORENDER DO, NIRMALA S Ot R05 COUGH 08/12/2018 ORENDER DO, NIRMALA S Ot R05 COUGH 08/12/2018 ORENDER DO, NIRMALA S Ot R53.83 OTHER FATIGUE 08/12/2018 ORENDER DO, NIRMALA S Ot R74.8 ABNORMAL LEVELS OF OTHER SERUM ENZYMES 08/12/2018 ORENDER DO, NIRMALA S Ot R73.9 HYPERGLYCEMIA, UNSPECIFIED 08/12/2018 ORENDER DO, NIRMALA S Ot R74.8 ABNORMAL LEVELS OF OTHER SERUM ENZYMES 08/12/2018 LISBETH FAY R CAFETERIA SERVER Ot Z12.31 ENCNTR SCREEN MAMMOGRAM FOR MALIGNANT NE 08/12/2018 NYA LISBETH R CAFETERIA SERVER Ot E28.2 POLYCYSTIC OVARIAN SYNDROME 08/12/2018 NYA LISBETH R CAFETERIA SERVER Ot R73.02 IMPAIRED GLUCOSE TOLERANCE (ORAL) 08/12/2018 LISBETH FAY R CAFETERIA SERVER Ot R74.8 ABNORMAL LEVELS OF OTHER SERUM ENZYMES 08/12/2018 BARRON FAYON R CAFETERIA SERVER Ot Z00.00 ENCNTR FOR GENERAL ADULT MEDICAL EXAM W/ 08/12/2018 BARRON FAYON R CAFETERIA SERVER Ot R05 COUGH 08/12/2018 NYA, LISBETH R CAFETERIA SERVER Ot R06.2 WHEEZING 08/12/2018 NYA LISBETH R CAFETERIA SERVER Ot R09.89 OTH SYMPTOMS AND SIGNS INVOLVING THE CIR 08/12/2018 ORENDER DO, NIRMALA S Ot M43.16 SPONDYLOLISTHESIS, LUMBAR REGION 08/12/2018 ORENDER DO, NIRMALA S Ot M47.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, NADINE 08/12/2018 ANCA BLACKMAN CAFETERIA SERVER Ot I10 ESSENTIAL (PRIMARY) HYPERTENSION 08/16/2018 ORENDER DO, NIRMALA S Ot M43.16 SPONDYLOLISTHESIS, LUMBAR REGION 08/16/2018 NIRMALA JARAMILLO DO S Ot M47.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, NADINE 09/13/2018 NYA, LISBETH R CAFETERIA SERVER Ot R05 COUGH 09/13/2018 NYA, LISBETH R CAFETERIA SERVER Ot R06.2 WHEEZING 09/13/2018 NYA, LISBETH R CAFETERIA SERVER Ot R09.89 OTH SYMPTOMS AND SIGNS INVOLVING THE CIR 09/13/2018 NYA, LISBETH R CAFETERIA SERVER Ot R05 COUGH 09/13/2018 NYA, LISBETH R CAFETERIA SERVER Ot R06.2 WHEEZING 09/13/2018 NYA, LISBETH R CAFETERIA SERVER Ot R09.89 OTH SYMPTOMS AND SIGNS INVOLVING THE CIR 09/14/2018 NYA, LISBETH R CAFETERIA SERVER Ot R05 COUGH 09/14/2018 NYA, LISBETH R CAFETERIA SERVER Ot R06.2 WHEEZING 09/14/2018 NYA, LISBETH R CAFETERIA SERVER Ot R09.89 OTH SYMPTOMS AND SIGNS INVOLVING THE CIR 11/05/2018 NYA, LISBETH R CAFETERIA SERVER Ot R05 COUGH 11/05/2018 NYA, LISBETH R CAFETERIA SERVER Ot R06.2 WHEEZING 11/05/2018 NYA, LISBETH R CAFETERIA SERVER Ot R09.89 OTH SYMPTOMS AND SIGNS INVOLVING THE CIR 11/05/2018 NYA, LISBETH R CAFETERIA SERVER Ot R05 COUGH 11/05/2018 NYA, LISBETH R CAFETERIA SERVER Ot R06.2 WHEEZING 11/05/2018 NYA, LISBETH R CAFETERIA SERVER Ot R09.89 OTH SYMPTOMS AND SIGNS INVOLVING THE CIR 11/30/2018 NAY, LISBETH R CAFETERIA SERVER Ot R05 COUGH 11/30/2018 NYA, LISBETH R CAFETERIA SERVER Ot R06.2 WHEEZING 11/30/2018 NYA, LISBETH R CAFETERIA SERVER Ot R09.89 OTH SYMPTOMS AND SIGNS INVOLVING THE CIR 12/19/2018 MARYCHUY ESTES CAFETERIA SERVER Ot J18.9 PNEUMONIA, UNSPECIFIED ORGANISM 12/19/2018 MARYCHUY ESTES CAFETERIA SERVER Ot R05 COUGH 12/19/2018 ORENDER DO, NIRMALA S Ot J06.9 ACUTE UPPER RESPIRATORY INFECTION, UNSPE 12/19/2018 ORENDER DO, NIRMALA S Ot E28.2 POLYCYSTIC OVARIAN SYNDROME 12/19/2018 ORENDER DO, NIRMALA S Ot R05 COUGH 12/19/2018 ORENDER DO, NIRMALA S Ot R74.8 ABNORMAL LEVELS OF OTHER SERUM ENZYMES 12/19/2018 SUNITA LEES MD Ot J02 .9 ACUTE PHARYNGITIS, UNSPECIFIED 12/19/2018 SUNITA LEES MD Ot 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 12/19/2018 SUNITA LEES MD Ot R05 COUGH 12/19/2018 SUNITA LEES MD Ot R93 .8 ABNORMAL FINDINGS ON DIAGNOSTIC IMAGING 12/19/2018 ORENDER DO, NIRMALA S Ot R05 COUGH 12/19/2018 ORENDER DO, NIRMALA S Ot R05 COUGH 12/19/2018 ORENDER DO, NIRMALA S Ot R53.83 OTHER FATIGUE 12/19/2018 ORENDER DO, NIRMALA S Ot R74.8 ABNORMAL LEVELS OF OTHER SERUM ENZYMES 12/19/2018 KELLYNDER DO, NIRMALA S Ot R73.9 HYPERGLYCEMIA, UNSPECIFIED 12/19/2018 ORENDER DO, NIRMALA S Ot R74.8 ABNORMAL LEVELS OF OTHER SERUM ENZYMES 12/19/2018 LISBETH FAY CAFETERIA SERVER Ot Z12.31 ENCNTR SCREEN MAMMOGRAM FOR MALIGNANT NE 12/19/2018 LISBETH FAY R CAFETERIA SERVER Ot E28.2 POLYCYSTIC OVARIAN SYNDROME 12/19/2018 BARRON FAYON R CAFETERIA SERVER Ot R73.02 IMPAIRED GLUCOSE TOLERANCE (ORAL) 12/19/2018 BARRON FAYON R CAFETERIA SERVER Ot R74.8 ABNORMAL LEVELS OF OTHER SERUM ENZYMES 12/19/2018 BARRON FAYON R CAFETERIA SERVER Ot Z00.00 ENCNTR FOR GENERAL ADULT MEDICAL EXAM W/ 12/19/2018 LISBETH FAY CAFETERIA SERVER Ot R05 COUGH 12/19/2018 LISBETH FAY R CAFETERIA SERVER Ot R06.2 WHEEZING 12/19/2018 LISBETH FAY CAFETERIA SERVER Ot R09.89 OTH SYMPTOMS AND SIGNS INVOLVING THE CIR 12/19/2018 ANCA BLACKMAN CAFETERIA SERVER Ot I10 ESSENTIAL (PRIMARY) HYPERTENSION 12/19/2018 MARYCHUY ESTES Esequiel CAFETERIA SERVER Ot J18.9 PNEUMONIA, UNSPECIFIED ORGANISM 12/19/2018 FRANKLYNEVELYNFeliciano Iraheta CAFETERIA SERVER Ot R05 COUGH 12/19/2018 ORENDER DO, NIRMALA S Ot J06.9 ACUTE UPPER RESPIRATORY INFECTION, UNSPE 12/19/2018 ORENDER DO, NIRMALA S Ot E28.2 POLYCYSTIC OVARIAN SYNDROME 12/19/2018 ORENDER DO, NIRMALA S Ot R05 COUGH 12/19/2018 ORENDER DO, NIRMALA S Ot R74.8 ABNORMAL LEVELS OF OTHER SERUM ENZYMES 12/19/2018 NABEEL MCMAHAN, SUNITA Montiel Ot J02 .9 ACUTE PHARYNGITIS, UNSPECIFIED 12/19/2018 NABEEL MCMAHAN, SUNITA Montiel Ot 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 12/19/2018 NABEEL MCMAHAN, SUNITA Montiel Ot R05 COUGH 12/19/2018 SUNITA LEES MD Ot R93 .8 ABNORMAL FINDINGS ON DIAGNOSTIC IMAGING 12/19/2018 ORENDER DO, NIRMALA S Ot R05 COUGH 12/19/2018 ORENDER DO, NIRMALA S Ot R05 COUGH 12/19/2018 ORENDER DO, NIRMALA S Ot R53.83 OTHER FATIGUE 12/19/2018 ORENDER DO, NIRMALA S Ot R74.8 ABNORMAL LEVELS OF OTHER SERUM ENZYMES 12/19/2018 ORENDER DO, NIRMAAL S Ot R73.9 HYPERGLYCEMIA, UNSPECIFIED 12/19/2018 ORENDER DO, NIRMALA S Ot R74.8 ABNORMAL LEVELS OF OTHER SERUM ENZYMES 12/19/2018 LISBETH FAY CAFETERIA SERVER Ot Z12.31 ENCNTR SCREEN MAMMOGRAM FOR MALIGNANT NE 12/19/2018 LISBETH FAY CAFETERIA SERVER Ot E28.2 POLYCYSTIC OVARIAN SYNDROME 12/19/2018 LISBETH FAY CAFETERIA SERVER Ot R73.02 IMPAIRED GLUCOSE TOLERANCE (ORAL) 12/19/2018 LISBETH FAY CAFETERIA SERVER Ot R74.8 ABNORMAL LEVELS OF OTHER SERUM ENZYMES 12/19/2018 LISBETH FAY CAFETERIA SERVER Ot Z00.00 ENCNTR FOR GENERAL ADULT MEDICAL EXAM W/ 12/19/2018 LISBETH FAY CAFETERIA SERVER Ot R05 COUGH 12/19/2018 LISBETH FAY CAFETERIA SERVER Ot R06.2 WHEEZING 12/19/2018 LISBETH FAY CAFETERIA SERVER Ot R09.89 OTH SYMPTOMS AND SIGNS INVOLVING THE CIR 12/19/2018 ANCA BLACKMAN CAFETERIA SERVER Ot I10 ESSENTIAL (PRIMARY) HYPERTENSION 12/19/2018 FRANKLYN MARYCHUY N CAFETERIA SERVER Ot J18.9 PNEUMONIA, UNSPECIFIED ORGANISM 12/19/2018 MARYCHUY ESTES CAFETERIA SERVER Ot R05 COUGH 12/19/2018 ORENDER DO, NIRMALA S Ot J06.9 ACUTE UPPER RESPIRATORY INFECTION, UNSPE 12/19/2018 ORENDER DO, NIRMALA S Ot E28.2 POLYCYSTIC OVARIAN SYNDROME 12/19/2018 ORENDER DO, NIRMALA S Ot R05 COUGH 12/19/2018 ORENDER DO, NIRMALA S Ot R74.8 ABNORMAL LEVELS OF OTHER SERUM ENZYMES 12/19/2018 NABEEL MCMAHAN, SUNITA Montiel Ot J02 .9 ACUTE PHARYNGITIS, UNSPECIFIED 12/19/2018 NABEEL MCMAHAN, SUNITA Montiel Ot 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 12/19/2018 NABEEL MCMAHAN, SUNITA Montiel Ot R05 COUGH 12/19/2018 NABEEL MCMAHAN, SUNITA Montiel Ot R93 .8 ABNORMAL FINDINGS ON DIAGNOSTIC IMAGING 12/19/2018 ORENDER DO, NIRMALA S Ot R05 COUGH 12/19/2018 ORENDER DO, NIRMALA S Ot R05 COUGH 12/19/2018 ORENDER DO, NIRMALA S Ot R53.83 OTHER FATIGUE 12/19/2018 ORENDER DO, NIRMALA S Ot R74.8 ABNORMAL LEVELS OF OTHER SERUM ENZYMES 12/19/2018 ORENDER DO, NIRMALA S Ot R73.9 HYPERGLYCEMIA, UNSPECIFIED 12/19/2018 ORENDER DO, NIRMALA S Ot R74.8 ABNORMAL LEVELS OF OTHER SERUM ENZYMES 12/19/2018 LISBETH FAY CAFETERIA SERVER Ot Z12.31 ENCNTR SCREEN MAMMOGRAM FOR MALIGNANT NE 12/19/2018 LISBETH FAY CAFETERIA SERVER Ot E28.2 POLYCYSTIC OVARIAN SYNDROME 12/19/2018 LISBETH FAY CAFETERIA SERVER Ot R73.02 IMPAIRED GLUCOSE TOLERANCE (ORAL) 12/19/2018 NYA, LISBETH R CAFETERIA SERVER Ot R74.8 ABNORMAL LEVELS OF OTHER SERUM ENZYMES 12/19/2018 LISBETH FAY CAFETERIA SERVER Ot Z00.00 ENCNTR FOR GENERAL ADULT MEDICAL EXAM W/ 12/19/2018 LISBETH FAY CAFETERIA SERVER Ot R05 COUGH 12/19/2018 LISBETH FAY CAFETERIA SERVER Ot R06.2 WHEEZING 12/19/2018 LISBETH FAY CAFETERIA SERVER Ot R09.89 OTH SYMPTOMS AND SIGNS INVOLVING THE CIR 12/19/2018 ANCA BLACKMAN CAFETERIA SERVER Ot I10 ESSENTIAL (PRIMARY) HYPERTENSION 12/26/2018 MARYCHUY ESTES CAFETERIA SERVER Ot J18.9 PNEUMONIA, UNSPECIFIED ORGANISM 12/26/2018 MARYCHUY ESTES CAFETERIA SERVER Ot R05 COUGH 12/26/2018 ORENDER DO, NIRMALA S Ot J06.9 ACUTE UPPER RESPIRATORY INFECTION, UNSPE 12/26/2018 ORENDER DO, NIRMALA S Ot E28.2 POLYCYSTIC OVARIAN SYNDROME 12/26/2018 ORENDER DO, NIRMALA S Ot R05 COUGH 12/26/2018 ORENDER DO, NIRMALA S Ot R74.8 ABNORMAL LEVELS OF OTHER SERUM ENZYMES 12/26/2018 NABEEL MCMAHAN, SUNITA Montiel Ot J02 .9 ACUTE PHARYNGITIS, UNSPECIFIED 12/26/2018 SUNITA LEES MD Ot 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 12/26/2018 SUNITA LEES MD Ot R05 COUGH 12/26/2018 SUNITA LEES MD Ot R93 .8 ABNORMAL FINDINGS ON DIAGNOSTIC IMAGING 12/26/2018 ORENDER DO, NIRMALA S Ot R05 COUGH 12/26/2018 ORENDER DO, NIRMALA S Ot R05 COUGH 12/26/2018 ORENDER DO, NIRMALA S Ot R53.83 OTHER FATIGUE 12/26/2018 ORENDER DO, NIRMALA S Ot R74.8 ABNORMAL LEVELS OF OTHER SERUM ENZYMES 12/26/2018 ORENDER DO, NIRMALA S Ot R73.9 HYPERGLYCEMIA, UNSPECIFIED 12/26/2018 ORENDER DO, NIRMALA S Ot R74.8 ABNORMAL LEVELS OF OTHER SERUM ENZYMES 12/26/2018 LISBETH FAY R CAFETERIA SERVER Ot Z12.31 ENCNTR SCREEN MAMMOGRAM FOR MALIGNANT NE 12/26/2018 LISBETH FAY R CAFETERIA SERVER Ot E28.2 POLYCYSTIC OVARIAN SYNDROME 12/26/2018 BARRON FAYON R CAFETERIA SERVER Ot R73.02 IMPAIRED GLUCOSE TOLERANCE (ORAL) 12/26/2018 BARRON FAYON R CAFETERIA SERVER Ot R74.8 ABNORMAL LEVELS OF OTHER SERUM ENZYMES 12/26/2018 BARRON FAYON R CAFETERIA SERVER Ot Z00.00 ENCNTR FOR GENERAL ADULT MEDICAL EXAM W/ 12/26/2018 BARRON FAYON R CAFETERIA SERVER Ot R05 COUGH 12/26/2018 BARRON FAYON R CAFETERIA SERVER Ot R06.2 WHEEZING 12/26/2018 BARRON FAYON R CAFETERIA SERVER Ot R09.89 OTH SYMPTOMS AND SIGNS INVOLVING THE CIR 12/26/2018 ANCA BLACKMAN CAFETERIA SERVER Ot I10 ESSENTIAL (PRIMARY) HYPERTENSION 01/29/2019 ANCA BLACKMAN CAFETERIA SERVER Ot I10 ESSENTIAL (PRIMARY) HYPERTENSION 02/05/2019 NIRMALA JARAMILLO DO S Ot Z12.31 ENCNTR SCREEN MAMMOGRAM FOR MALIGNANT NE 02/12/2019 NIRMALA JARAMILLO DO S Ot Z12.31 ENCNTR SCREEN MAMMOGRAM FOR MALIGNANT NE 04/27/2019 W 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 Nya, Lisbeth 04/27/2019 W J06.9 Uppe r respiratory infection Nya, Lisbeth 04/30/2019 W E11.65 Typ e 2 diabetes mellitus with hyperglycemia Nya, Lisbeth 04/30/2019 W F32.9 Aminta r depressive disorder, single episode, unspecified Nya, Lisbeth 04/30/2019 W F41.9 Anxi ety and depression Nya, Lisbeth 04/30/2019 W E11.65 Typ e 2 diabetes mellitus with hyperglycemia Nya, Lisbeth 04/30/2019 W F32.9 Aminta r depressive disorder, single episode, unspecified Nya, Lisbeth 04/30/2019 W F41.9 Anxi ety and depression Nya, Lisbeth 05/11/2019 JOHNSON JARAMILLO DOLINE S Ot Z12.31 ENCNTR SCREEN MAMMOGRAM FOR MALIGNANT NE 05/15/2019 WILY METZGER MD, Ot N92.0 EXCESSIVE AND FREQUENT MENSTRUATION WITH 05/15/2019 WILY METZGER MD, Ot R32 UNSPECIFIED URINARY INCONTINENCE 05/15/2019 WILY METZGER MD, Ot Z01.812 ENCOUNTER FOR PREPROCEDURAL LABORATORY E Procedures There is no data. Results Test Result Range Complete blood count (CBC) with automate d white blood cell (WBC) differential - 08/17/16 10:00 Blood leukocytes automated count (number/volume) 6.7 10*3/uL 4.3-11.0 Blood erythrocytes automated count (number/volume) 4.22 10*6/uL 4.35-5.85 Venous blood hemoglobin measurement (mass/volume) 12.6 g/dL 11.5-16.0 Blood hematocrit (volume fraction) 38 % 35-52 Automated erythrocyte mean corpuscular volume 89 [ foz_us] 80-99 Automated erythrocyte mean corpuscular h emoglobin (mass per erythrocyte) 30 pg 25-34 Automated erythrocyte mean corpuscular h emoglobin concentration measurement (mass/volume) 34 g/dL 32-36 Automated erythrocyte distribution width ratio 14. 5 % 10.0- 14.5 Automated blood platelet count (count/volume) 237 10*3/uL 130-400 Automated blood platelet mean volume measurement 11.3 [foz_us] 7.4-10.4 Automated blood neutrophils/100 leukocytes 62 % 42-75 Automated blood lymphocytes/100 leukocytes 24 % 12-44 Blood monocytes/100 leukocytes 10 % 0-12 Automated blood eosinophils/100 leukocytes 4 % 0-10 Automated blood basophils/100 leukocytes 1 % 0-10 Blood neutrophils automated count (number/volume) 4.1 10*3 1.8-7.8 Blood lymphocytes automated count (number/volume) 1.6 10*3 1.0-4.0 Blood monocytes automated count (number/volume) 0. 6 10*3 0.0-1.0 Automated eosinophil count 0.2 10*3/uL 0 .0-0.3 Automated blood basophil count (count/volume) 0.0 10*3/uL 0.0-0.1 Comprehensive metabolic panel - 08/17/16 10:00 Serum or plasma sodium measurement (moles/volume) 138 mmol/L 135-145 Serum or plasma potassium measurement (moles/volume) 4.1 mmol/L 3.6-5.0 Serum or plasma chloride measurement (moles/volume) 104 mmol/L 98-107 Carbon dioxide 24 mmol/L 21-32 Serum or plasma anion gap determination (moles/volume) 10 mmol/L 5-14 Serum or plasma urea nitrogen measurement (mass/volume ) 7 mg/dL 7-18 Serum or plasma creatinine measurement (mass/volume) 0.79 mg/dL 0.60-1.30 Serum or plasma urea nitrogen/creatinine mass ratio 9 0-20 Serum or plasma creatinine measurement w ith calculation of estimated glomerular filtration rate > NRG Serum or plasma glucose measurement (mass/volume) 178 mg/dL 70-105 Serum or plasma calcium measurement (mass/volume) 9.7 mg/dL 8.5-10.1 Serum or plasma total bilirubin measurement (mass/volu me) 1.0 mg/dL 0.1-1.0 Serum or plasma alkaline phosphatase kelley surement (enzymatic activity/volume) 76 U/L 40-136 Serum or plasma aspartate aminotransfera se measurement (enzymatic activity/volume) 119 U/L 5-34 Serum or plasma alanine aminotransferase measurement (enzymatic activity/volume) 212 U/L 0-55 Serum or plasma protein measurement (mass/volume) 7.5 g/dL 6.4-8.2 Serum or plasma albumin measurement (mass/volume) 4.2 g/dL 3.2-4.5 Hemoglobin A1c - 08/17/16 10:00 Hemoglobin A1c 5.6 % 4.5-6.2 THYROID STIMULATING HORMONE - 08/17/16 1 0:00 THYROID STIMULATING HORMONE 1.73 u[iU]/mL 0.35-4.94 Serum or plasma thyroxine (T4) free krystina urement (mass/volume) - 08/17/16 10:00 Serum or plasma thyroxine (T4) free measurement (mass/ volume) 0.82 ng/dL 0.70-1.48 Tick identification panel - 08/18/16 16: 07 Serum Ehrlichia chaffeensis IgG antibody detection <1:16 <1:16 Serum Ehrlichia chaffeensis IgM antibody detection <1:10 <1:10 Serum Rickettsia rickettsii IgG antibody assay (units/ volume) < <1:16 [place] spotted fever panel < <1:10 Francisella tularensis antibody assay <1:20 NRG LYME AB G M 0.09 % 0.00-0.89 Interpretation of Lyme disease antibody assay Nega tive Negative Acute hepatitis panel - 08/18/16 16:07 Confirmatory quantitative serum or plasm a hepatitis B virus surface antigen measurement Non-Reactive Non-Reactive Hepatitis A virus IgM antibody assay Non-Reactive Non- Reactive Hepatitis B virus core IgM antibody assay Non-Reac tive Non- Reactive Serum hepatitis C virus antibody detection Non-[place] ctive Non-Reactive [id number] - 10/15/16 07:48 Serum or plasma urea nitrogen measurement (mass/volume ) 9 mg/dL 7-18 Serum or plasma creatinine measurement (mass/volume) 0.75 mg/dL 0.60-1.30 Serum or plasma urea nitrogen/creatinine mass ratio 12 NRG Serum or plasma creatinine measurement w ith calculation of estimated glomerular filtration rate > NRG Comprehensive metabolic panel - 12/03/16 15:43 Serum or plasma sodium measurement (moles/volume) 138 mmol/L 135-145 Serum or plasma potassium measurement (moles/volume) 3.5 mmol/L 3.6-5.0 Serum or plasma chloride measurement (moles/volume) 106 mmol/L 98-107 Carbon dioxide 22 mmol/L 21-32 Serum or plasma anion gap determination (moles/volume) 10 mmol/L 5-14 Serum or plasma urea nitrogen measurement (mass/volume ) 7 mg/dL 7-18 Serum or plasma creatinine measurement (mass/volume) 0.96 mg/dL 0.60-1.30 Serum or plasma urea nitrogen/creatinine mass ratio 7 NRG Serum or plasma creatinine measurement w ith calculation of estimated glomerular filtration rate > NRG Serum or plasma glucose measurement (mass/volume) 222 mg/dL 70-105 Serum or plasma calcium measurement (mass/volume) 9.4 mg/dL 8.5-10.1 Serum or plasma total bilirubin measurement (mass/volu me) 0.8 mg/dL 0.1-1.0 Serum or plasma alkaline phosphatase kelley surement (enzymatic activity/volume) 79 U/L 40-136 Serum or plasma aspartate aminotransfera se measurement (enzymatic activity/volume) 159 U/L 5-34 Serum or plasma alanine aminotransferase measurement (enzymatic activity/volume) 341 U/L 0-55 Serum or plasma protein measurement (mass/volume) 7.5 g/dL 6.4-8.2 Serum or plasma albumin measurement (mass/volume) 4.2 g/dL 3.2-4.5 THYROID STIMULATING HORMONE - 12/03/16 1 5:43 THYROID STIMULATING HORMONE 1.97 u[iU]/mL 0.35-4.94 Total triiodothyronine (T3) measurement - 12/03/16 15:43 Total triiodothyronine (T3) measurement 1.3 % 0.6-1.8 Comprehensive metabolic panel - 01/28/17 08:28 Serum or plasma sodium measurement (moles/volume) 138 mmol/L 135-145 Serum or plasma potassium measurement (moles/volume) 4.2 mmol/L 3.6-5.0 Serum or plasma chloride measurement (moles/volume) 107 mmol/L 98-107 Carbon dioxide 24 mmol/L 21-32 Serum or plasma anion gap determination (moles/volume) 7 mmol/L 5-14 Serum or plasma urea nitrogen measurement (mass/volume ) 7 mg/dL 7-18 Serum or plasma creatinine measurement (mass/volume) 0.75 mg/dL 0.60-1.30 Serum or plasma urea nitrogen/creatinine mass ratio 9 NRG Serum or plasma creatinine measurement w ith calculation of estimated glomerular filtration rate > NRG Serum or plasma glucose measurement (mass/volume) 144 mg/dL 70-105 Serum or plasma calcium measurement (mass/volume) 9.7 mg/dL 8.5-10.1 Serum or plasma total bilirubin measurement (mass/volu me) 0.9 mg/dL 0.1-1.0 Serum or plasma alkaline phosphatase kelley surement (enzymatic activity/volume) 80 U/L 40-136 Serum or plasma aspartate aminotransfera se measurement (enzymatic activity/volume) 124 U/L 5-34 Serum or plasma alanine aminotransferase measurement (enzymatic activity/volume) 230 U/L 0-55 Serum or plasma protein measurement (mass/volume) 7.8 g/dL 6.4-8.2 Serum or plasma albumin measurement (mass/volume) 4.4 g/dL 3.2-4.5 Hemoglobin A1c - 01/28/17 08:28 Hemoglobin A1c 6.1 % 4.5-6.2 Acute hepatitis panel - 01/28/17 08:28 Confirmatory quantitative serum or plasm a hepatitis B virus surface antigen measurement Non-Reactive Non-Reactive Hepatitis A virus IgM antibody assay Non-Reactive Non- Reactive Hepatitis B virus core IgM antibody assay Non-Reac tive Non- Reactive Serum hepatitis C virus antibody detection Non-Emili ctive Non-Reactive Complete blood count (CBC) with automate d white blood cell (WBC) differential - 09/23/17 09:33 Blood leukocytes automated count (number/volume) 5.7 10*3/uL 4.3-11.0 Blood erythrocytes automated count (number/volume) 4.43 10*6/uL 4.35-5.85 Venous blood hemoglobin measurement (mass/volume) 13.0 g/dL 11.5-16.0 Blood hematocrit (volume fraction) 38 % 35-52 Automated erythrocyte mean corpuscular volume 86 [ foz_us] 80-99 Automated erythrocyte mean corpuscular h emoglobin (mass per erythrocyte) 29 pg 25-34 Automated erythrocyte mean corpuscular h emoglobin concentration measurement (mass/volume) 34 g/dL 32-36 Automated erythrocyte distribution width ratio 14. 8 % 10.0- 14.5 Automated blood platelet count (count/volume) 210 10*3/uL 130-400 Automated blood platelet mean volume measurement 11.2 [foz_us] 7.4-10.4 Automated blood neutrophils/100 leukocytes 59 % 42-75 Automated blood lymphocytes/100 leukocytes 27 % 12-44 Blood monocytes/100 leukocytes 10 % 0-12 Automated blood eosinophils/100 leukocytes 2 % 0-10 Automated blood basophils/100 leukocytes 1 % 0-10 Blood neutrophils automated count (number/volume) 3.4 10*3 1.8-7.8 Blood lymphocytes automated count (number/volume) 1.6 10*3 1.0-4.0 Blood monocytes automated count (number/volume) 0. 6 10*3 0.0-1.0 Automated eosinophil count 0.1 10*3/uL 0 .0-0.3 Automated blood basophil count (count/volume) 0.0 10*3/uL 0.0-0.1 Comprehensive metabolic panel - 09/23/17 09:33 Serum or plasma sodium measurement (moles/volume) 140 mmol/L 135-145 Serum or plasma potassium measurement (moles/volume) 4.3 mmol/L 3.6-5.0 Serum or plasma chloride measurement (moles/volume) 107 mmol/L 98-107 Carbon dioxide 26 mmol/L 21-32 Serum or plasma anion gap determination (moles/volume) 7 mmol/L 5-14 Serum or plasma urea nitrogen measurement (mass/volume ) 6 mg/dL 7-18 Serum or plasma creatinine measurement (mass/volume) 0.76 mg/dL 0.60-1.30 Serum or plasma urea nitrogen/creatinine mass ratio 8 NRG Serum or plasma creatinine measurement w ith calculation of estimated glomerular filtration rate > NRG Serum or plasma glucose measurement (mass/volume) 136 mg/dL 70-105 Serum or plasma calcium measurement (mass/volume) 10.0 mg/dL 8.5-10.1 Serum or plasma total bilirubin measurement (mass/volu me) 1.1 mg/dL 0.1-1.0 Serum or plasma alkaline phosphatase kelley surement (enzymatic activity/volume) 64 U/L 40-136 Serum or plasma aspartate aminotransfera se measurement (enzymatic activity/volume) 174 U/L 5-34 Serum or plasma alanine aminotransferase measurement (enzymatic activity/volume) 286 U/L 0-55 Serum or plasma protein measurement (mass/volume) 7.5 g/dL 6.4-8.2 Serum or plasma albumin measurement (mass/volume) 4.6 g/dL 3.2-4.5 THYROID STIMULATING HORMONE - 09/23/17 0 9:33 THYROID STIMULATING HORMONE 2.11 u[iU]/mL 0.35-4.94 Hemoglobin A1c - 09/23/17 09:33 Blood hemoglobin A1C measurement (mass/volume) 6.6 % 4.0-5.6 MEAN BLOOD GLUCOSE 143 % <=126 Serum or plasma insulin measurement (uni ts/volume) - 09/23/17 09:33 Insulin [mass/volume] in serum or plasma 23.9 m[iU ]/L 6.0- 24.0 Methicillin resistant Staphylococcus aur eus (MRSA) screening culture - 05/11/19 10:30 Methicillin resistant Staphylococcus aureus (MRSA) scr eening culture NEG NRG Complete blood count (CBC) with automate d white blood cell (WBC) differential - 05/11/19 10:35 Blood leukocytes automated count (number/volume) 8.1 10*3/uL 4.3-11.0 Blood erythrocytes automated count (number/volume) 4.61 10*6/uL 4.35-5.85 Venous blood hemoglobin measurement (mass/volume) 13.1 g/dL 11.5-16.0 Blood hematocrit (volume fraction) 39 % 35-52 Automated erythrocyte mean corpuscular volume 86 [ foz_us] 80-99 Automated erythrocyte mean corpuscular h emoglobin (mass per erythrocyte) 28 pg 25-34 Automated erythrocyte mean corpuscular h emoglobin concentration measurement (mass/volume) 33 g/dL 32-36 Automated erythrocyte distribution width ratio 14. 8 % 10.0- 14.5 Automated blood platelet count (count/volume) 303 10*3/uL 130-400 Automated blood platelet mean volume measurement 11.8 [foz_us] 7.4-10.4 Automated blood neutrophils/100 leukocytes 64 % 42-75 Automated blood lymphocytes/100 leukocytes 23 % 12-44 Blood monocytes/100 leukocytes 8 % 0-12 Automated blood eosinophils/100 leukocytes 5 % 0-10 Automated blood basophils/100 leukocytes 0 % 0-10 Blood neutrophils automated count (number/volume) 5.2 10*3 1.8-7.8 Blood lymphocytes automated count (number/volume) 1.9 10*3 1.0-4.0 Blood monocytes automated count (number/volume) 0. 6 10*3 0.0-1.0 Automated eosinophil count 0.4 10*3/uL 0 .0-0.3 Automated blood basophil count (count/volume) 0.0 10*3/uL 0.0-0.1 Blood type T Indirect antibody screen [facility] - 05/11/19 10:35 ABO+Rh group BP NRG Blood group antibody screen NEGATIVE NR G Blood type T Indirect antibody screen [facility] 05/18/19 10:50 WRISTBAND NUMBER [id number] NRG ABO+Rh group BP NRG Blood group antibody screen NEGATIVE NR G Capillary blood glucose measurement by g lucometer (mass/volume) - 05/18/19 10:52 Capillary blood glucose measurement by glucometer (mas s/volume) 126 mg/dL 70-110 Encounters ACCT No. Visit Date/Time Discharge Status Pt. Type Provider Facility Loc./Unit Complaint [id number] 01/20/2018 21:02:44 01/20/2018 23:59: 59 CLS Outpatient Holly Vaughan 10/201601/23/2019 12:41:42 01/23/2019 23:59 :59 CLS Outpatient Nirmala Jaramillo. [id number] 03/26/2019 13:17:00 Document Registration [id number] 05/11/2019 09:28:00 020 12:30:00 DIS Outpatient DOMENICA MCMAHAN, WILY Wang [facility] PREOP ROBOTIC LAPAROS COPIC HYSTERECTOMY;SLING WITH CYSTO [id number] 02/01/2019 10:20:00 019 23:59:59 CLS Outpatient JOHNSON JARAMILLO DOLINE S [facility] RAD SCREENING [id number] 06/27/2018 09:49:00 019 23:59:59 CLS Outpatient ANCA BLACKMAN CAFETERIA SERVER [facility] CARD HYPERTENSION [id number] 01/31/2018 14:30:00 018 23:59:59 CLS Outpatient JOHNSON JARAIMLLO DOLINE S [facility] RAD R LEG SCIATICA, R LOW BACK PAIN [id number] 11/10/2017 15:40:00 018 23:59:59 CLS Outpatient LISBETH FAY R CAFETERIA SERVER [facility] RAD COUGH,CONGESTIO N [id number] 09/26/2017 11:30:00 018 23:59:59 CLS Outpatient NYA, LISBETH R CAFETERIA SERVER [facility] RAD ANNUAL MAMMO [id number] 09/23/2017 09:14:00 018 23:59:59 CLS Outpatient NYA LISBETH R CAFETERIA SERVER [facility] LAB PCOS [id number] 01/28/2017 08:16:00 017 23:59:59 CLS Outpatient HENOK JARAMILLO DOQUELINE S [facility] LAB R73.9 R74.8 [id number] 12/13/2016 20:00:00 017 23:59:59 CLS Preadmit KAYLIE WOLFE CAFETERIA SERVER [facility] SLEEP STEVE [id number] 12/03/2016 15:17:00 017 23:59:59 CLS Outpatient KELLYNDER DO NIRMALA S [facility] LAB FATIGUE, COUGH, INC LFTS [id number] 12/03/2016 15:08:00 017 23:59:59 CLS Outpatient KAYLIE WOLFE CAFETERIA SERVER [facility] RAD CHRONIC COUGH [id number] 11/22/2016 13:06:00 017 23:59:59 CLS Outpatient HENOK JARAMILLO DOQUELINE S [facility] RT COUGH [id number] 10/15/2016 07:33:00 017 23:59:59 CLS Outpatient SUNITA LEES MD [facility] RAD THROAT PAIN, COUGH [id number] 10/08/2016 10:12:00 017 10:45:00 DIS Outpatient SUNITA LEES MD [facility] SLEEP OBSTRUCTIVE SLEEP APNEA [id number] 09/24/2016 09:25:00 017 23:59:59 CLS Preadmit SUNITA LEES MD [facility] SLEEP STEVE [id number] 08/18/2016 15:46:00 017 23:59:59 CLS Outpatient ROSCOE FRANKLIN NIRMALA S [facility] LAB ELEVATED LIVER ENZYMES [id number] 08/17/2016 09:41:00 017 23:59:59 CLS Outpatient ROSCOE FRANKLIN NIRMALA S [facility] LAB YEARLY LAB PCOS COUGH [id number] 07/27/2016 15:26:00 017 23:59:59 CLS Outpatient VANGIEER DO NIRMALA S [facility] RAD J06.9 [id number] 12/10/2015 10:07:00 016 23:59:59 CLS Outpatient MARYCHUY ESTES CAFETERIA SERVER [facility] RAD COUGH, CONGESTI ON [id number] 05/18/2019 13:00:00 P EN Preadmit DOMENICA MCMAHAN, WILY [facility] MENORRHAGIA, DYSFUNCTIONAL U TERINE BLEEDING [id number] 02/09/2017 21:18:00 Document Registration
[2019-05-18] MEDS ORDERED: KETOROLAC 30 MG/ML VIAL ONE (13:44)
[2019-05-18] MEDS ORDERED: HYDROmorphone 2 MG/ML VIAL (DILAUDID) IV ONE (14:15)
[2019-05-18] MEDS ORDERED: morphine INJ 10 MG/ML 1ML (SYR OR VIAL) IVP ONE (14:15)
[2019-05-18] MEDS ORDERED: fentaNYL INJECTION 100 MCG/2 ML AMP IVP ONE (14:15)
[2019-05-18] MEDS ORDERED: WATER (STERILE) FOR INJECTION 10 ML ONE (14:18)
[2019-05-18] MEDS ORDERED: ESTROGENS CONJ IV 25 MG/5 ML (PREMARIN) VIAL ONE (14:18)
[2019-05-18] MEDS ORDERED: morphine INJ 10 MG/ML 1ML (SYR OR VIAL) ONE (14:21)
--- NOTE | 2019-05-18 15:00 | NUR ---
pt transferred to room 306 via bed with PACU staff @ side. report received from DAVID Piedra.
--- NOTE | 2019-05-18 15:12 | NUR ---
initial shift assessment completed, see interventions for further. lap sites x2, D/I. no drainage noted. [place] to DD with clear, yellow urine noted in chamber. vag packing in place. v-pad in place. SCD's to LE's. Addendum: 05/18/19 at 1838 by DARRIAN QUESADA RN pt drowsy, SpO2 87% on RA. encouraged deep breathing. O2 @ 2L per NC applied- SpO2 increased to 96%. will cont to monitor.
--- NOTE | 2019-05-18 15:27 | NUR ---
RT notified of IS order.
[2019-05-18] MEDS: D5 LR IV SOLUTION 1,000 ML IV SCH ×2 (16:07→23:41)
--- NOTE | 2019-05-18 17:17 | NUR ---
regular diet served. reports feeling "better".
[2019-05-18] MEDS: oxyCODONE/APAP 5/325MG (PERCOCET 5) TABLET PO PRN ×2 (18:16→22:22)
--- NOTE | 2019-05-18 19:23 | NUR ---
report given to next shift.
[2019-05-18] MEDS: KETOROLAC 30 MG/ML VIAL IVP SCH (20:06)
--- NOTE | 2019-05-18 22:01 | OPERATIVE REPORT ---
DATE OF SERVICE: 05/18/2019 PREOPERATIVE DIAGNOSIS: On my part, urinary incontinence and overactive bladder. POSTOPERATIVE DIAGNOSIS: On my part, urinary incontinence and overactive bladder. OPERATION PERFORMED: Pubovaginal sling and cystoscopy on my part. SURGEON: Edwige Ramey MD COMBUSTION ANALYST: Too Allen MD ANESTHESIA: General. COMPLICATIONS: None. DESCRIPTION OF PROCEDURE: After Dr. Allen performed the first part of his surgery that he will dictate, I went ahead and inserted a Hawk catheter. There was quite a bit of tightness and resistance, so Dr. Allen cut the sutures he had put for his anterior repair and then the catheter went easily. I went ahead and dilated the urethra; it was felt to be kind of directional. I inserted the catheter, inflated the balloon to 10 mL. Then, I passed the pubovaginal sling using the Solyx device with the prescribed technique on both sides. The sling was sitting nicely under the mid urethra with no bridging or tension and passage of a curved hemostat easily between it and the underlying tissue. I went ahead and performed cystoscopy to confirm the integrity of the bladder, ureteral orifices and urethra and presence of the sling under the mid urethra. I removed the cystoscope, reinserted the Hawk catheter, draining clear fluid and Dr. Allen proceeded with the rest part of his surgery that he will dictate. ESTIMATED BLOOD LOSS: My part negligible, none of which was replaced. Job ID: [id number] DocumentID: [id number] Dictated Date: 05/18/2019 13:29:16 Director Of Business Applications Date: 05/18/2019 22:00:38 Dictated By: EDWIGE RAMEY MD
--- NOTE | 2019-05-18 23:50 | OPERATIVE REPORT ---
DATE OF SERVICE: 05/18/2019 PREOPERATIVE DIAGNOSES: Uterovaginal prolapse, dysfunctional uterine bleeding, stress urinary incontinence. POSTOPERATIVE DIAGNOSES: Uterovaginal prolapse, dysfunctional uterine bleeding, stress urinary incontinence with pathology pending. OPERATIVE PROCEDURE: Total laparoscopic hysterectomy with bilateral salpingo-oophorectomy as well as anterior and posterior vaginal repair with enterocele repair and pubovaginal sling and cystoscopy by Dr. Raymond. OPERATIVE DESCRIPTION: With the patient in the supine position under satisfactory general anesthesia, she was repositioned in the dorsal lithotomy position in the [facility] and prepped and draped in the usual fashion for vaginal surgery and abdominal surgery using the da Ban assistance. A weighted speculum placed in posterior fornix of vagina, cervix exposed and grasped anteriorly with a single tooth tenaculum. Uterus was sounded to 9.5 cm with uterine sound. The cervix was then serially dilated with Pradip dilators to accommodate a Miya two manipulator, which was placed with a 6 mm x 8 cm uterine probe and a 25 mm colpotomy ring. Sutures of #1 Vicryl placed at 3 and 9 o'clock position of the cervix to affix the uterus to the manipulator. The patient was brought in low dorsal lithotomy position after removing the tenaculum and speculum placing the Hawk catheter in the urinary bladder. A 12 mm incision was made 9 cm superior to the umbilicus. Veress needle was placed through that incision into the abdominal cavity. Correct placement was confirmed with water drop test. The abdomen was insufflated with 2.4 liters of carbon dioxide. The Veress needle was removed and #12 mm Optiview laparoscopic port was placed. Laparoscope was introduced. The abdominal wall was transilluminated and 8 mm ports were placed 9 cm lateral to the umbilicus and just above the level of the umbilicus on each side. All three port sites were infiltrated with 0.25% Marcaine with epinephrine prior to incision and port placement. The patient was now placed in Trendelenburg allowing the bowel spill out of the pelvis. The da Ban column was advanced on the patient and docked. The operative instruments were placed in right and left lateral ports. An shot tube machine tender was placed in the right lateral port initially. Pelvic washings were obtained and those were sent to pathology separately. The instrument was then replaced with a vessel sealer. There was a bipolar fenestrated grasper on the left. I retired to the da Ban console at this point. At the console using the instruments noted above, the pelvis was examined. There was a large simple-appearing cyst involving the majority of the right ovary. This was consistent with a corpus luteal cyst. Both fallopian tubes were normal, although both looked a bit tortuous. The left ovary appeared normal. There were some endometriosis implants on the posterior lower uterine segment. The appendix was identified, it was a normal vermiform appendix that was left in situ. Attention was brought back to the pelvis. Both ureters were identified now and throughout the procedure to ensure care was taken to avoid trauma to those structures. The right tube and ovary were grasped and elevated. The IP ligament was clamped, cauterized and divided with the vessel sealer that was continued stepwise across the mesovarium, across the round ligament, the broad ligament down on the cardinal ligament. Same procedure was performed on the left, allowing for the eventual removal of both tubes and ovaries with the uterus. Anterior lower uterine segment peritoneum was now divided using a monopolar shear on the right instrument arm. The bladder was then carefully dissected down off the lower uterine segment and colpotomy incision was started onto the colpotomy ring at 12 o'clock position that was continued circumferentially until the entire colpotomy ring was exposed. The uterus with the tubes and ovaries still attached was extracted through the vagina. A cobra grasper on the left and a les cut needle septic pump truck driver on the right was employed to close the vaginal cuff with a single suture of V-Loc barbed suture starting from the right angle and continued across the vaginal cuff until it was completely closed. Care was taken to ensure inclusion of the uterine vessel pedicles with each angle stitch. Both ureters were seemed to peristalse throughout this portion of the procedure well and then was confirmed after the completion of the closure. At this point, the laparoscopic portion of the procedure was halted. The operative instruments were removed under direct vision as were the ports. The abdomen was evacuated of the insufflating gas and then the patient brought out of Trendelenburg and the operative port sites were closed with andi after first closing the fascia at the supraumbilical incision with [id number] suture of 2-0 Vicryl. The patient was now repositioned for the vaginal portion of the surgery. Anterior repair was initiated by placing weighted speculum posterior fornix of vagina. The anterior vaginal wall was grasped with two Liana clamps. An incision was made in the midline of the vaginal wall from approximately 1.5 cm from the urethral meatus down to the apex of the vagina. Sharp and blunt dissection was carried out to separate the vaginal mucosa from the bladder wall. The endopelvic fascia was then plicated after Dr. Raymond placed his pubovaginal sling. With Dr. Raymond assumed care of the patient for the pubovaginal sling, I remained to assist. The Hawk catheter was left to dependent drainage on completion of Dr. Raymond's portion of the procedure. Redundant anterior vaginal muscularis mucosa was removed sharply. Vaginal wall was closed with a running locked suture of 3-0 Vicryl Rapide. Posterior repair was then affected by placing Liana clamps on the perineum and hymenal ring and the inverted triangle of skin was removed from the perineal body and upright triangle from the posterior vaginal floor. The rectovaginal space was entered sharply and dissected bluntly to the apex of the vagina where it was explored, finding a small enterocele that enterocele was reduced and plicated with 2-0 Vicryl pursestring suture. Additional 2-0 Vicryl suture was then used to obliterate the rectovaginal space and to restore the perineal body. Redundant posterior vaginal muscularis mucosa was removed sharply. The vaginal wall was closed with a running locked suture of 3-0 Vicryl Rapide, that closure was continued past the hymenal ring down on the perineal body then back up subcutaneous to the hymenal ring where the suture was tied. Digital rectal exam confirmed no stricture or stenosis of the rectum. Both anterior and posterior vaginal newby were well supported and hemostatic. The vagina was now filled with Estrace vaginal cream and a pack of Kerlix gauze was placed. Sponge and needle counts were correct on completion of the procedure. Estimated blood loss was around 200 mL. The patient tolerated the procedure well and was uneventfully awakened from her general anesthesia and transferred to recovery room in stable condition. Job ID: [id number] DocumentID: [id number] Dictated Date: 05/18/2019 13:56:49 Sample Body Builder Date: 05/18/2019 23:49:24 Dictated By: WILY METZGER MD
[2019-05-19] MEDS: KETOROLAC 30 MG/ML VIAL IVP SCH ×2 (01:15→06:41)
[2019-05-19] MEDS: oxyCODONE/APAP 5/325MG (PERCOCET 5) TABLET PO PRN ×2 (02:39→08:03)
[2019-05-19 05:00] VITALS: BP 113/71
--- NOTE | 2019-05-19 07:30 | NUR ---
assisted up to BR. voided 200cc urine without difficulty. dafne-care given.
[2019-05-19 08:00] VITALS: BP 110/68
--- NOTE | 2019-05-19 08:00 | NUR ---
initial shift assessment completed, see interventions for further. POC reviewed, states understanding.
--- NOTE | 2019-05-19 08:10 | NUR ---
up to shower.
[2019-05-19] MEDS ORDERED: DOCUSATE SODIUM 100 MG (COLACE) CAP PO SCH (09:00)
[2019-05-19] MEDS ORDERED: ESTRADIOL 1 MG TAB (ESTRACE) PO SCH (09:00)
--- NOTE | 2019-05-19 09:25 | NUR ---
here to see pt.
[2019-05-19] MEDS ORDERED: ONDANSETRON 4 MG (ZOFRAN) ORAL DISSOLVE TAB PO STA (09:38)
--- NOTE | 2019-05-19 09:45 | Progress Note ---
Standard Progress Note Progress Notes/Assess & Plan Date Seen by a Provider: May 19, 2019 Time Seen by a Provider: 09:43 Progress/Assessment & Plan This patient is without complaint. She is ambulating, voiding, tolerating oral intake, patient has good pain control. Patient denies chest pain, denies shortness of breath, denies nausea vomiting, and denies headache. Vital Signs Date Time Temp Pulse Resp B/P (MAP) Pulse Ox O2 Delivery O2 Flow Rate FiO2 05/19/19 05:00 36.8 73 16 113/71 (85) 98 Room Air 05/18/19 23:41 37.0 79 16 110/70 (83) 98 Room Air 05/18/19 20:10 97 Room Air 05/18/19 20:06 36.6 86 16 119/78 (92) 99 Nasal Cannula 2.00 05/18/19 15:16 36.6 91 16 118/73 (88) 96 Nasal Cannula 2.00 05/18/19 15:00 Room Air 05/18/19 14:48 36.2 12 121/64 (83) 95 Room Air 05/18/19 14:40 12 125/79 (94) 100 OxyMask 10 05/18/19 14:30 15 128/73 (91) 100 OxyMask 10 05/18/19 14:30 OxyMask 10 05/18/19 14:20 18 125/66 (85) 100 OxyMask 10 05/18/19 14:10 20 115/61 (79) 100 OxyMask 10 05/18/19 14:05 18 98/61 (73) 99 OxyMask 10 05/18/19 14:00 OxyMask 10 05/18/19 14:00 37.0 24 72/38 (49) 94 OxyMask 10 05/18/19 10:05 36.7 73 16 128/78 (95) 98 Room Air I & O 05/19/19 07:00 Intake Total 5510 ml Output Total 5045 ml Balance 465 ml Vital signs are stable. Patient is afebrile. The abdomen is benign. The surgical dressings are clean and dry. Extremities show no clubbing or cyanosis. Homans sign. Assessment and plan postoperative day number 1 doing well. Plan is for discharge home with follow-up in clinic Final Diagnosis Uterovaginal prolapse/stress urinary incontinence WILY METZGER MD May 19, 2019 09:45
--- NOTE | 2019-05-19 10:19 | NUR ---
called to check on pt's status. dismissal orders received.
[2019-05-19] MEDS ORDERED: CIPR-225 PO (10:24)
--- NOTE | 2019-05-19 10:35 | NUR ---
called into pt's room. pt reports +void without difficulty. 500cc urine noted. PVR 18ml noted.
--- NOTE | 2019-05-19 10:47 | NUR ---
dismissal instructions given, verbalizes understanding. reviewed follow up appointments and Rx's. signature page signed, placed on chart.
--- NOTE | 2019-05-19 10:50 | NUR ---
Rx's called into [facility]'s pharmacy per pt's request.
--- NOTE | 2019-05-19 11:00 | NUR ---
pt dismissed to private vehicle via w/c with pt's mother & this RN @ side. pt stable with no sx's of distress noted.
--- NOTE | 2019-05-19 12:33 | Anesthesia-General Post-Op ---
General Patient Condition Mental Status/LOC: Same as Preop Cardiovascular: Satisfactory Nausea/Vomiting: Absent Respiratory: Satisfactory Pain: Controlled Complications: Absent Post Op Complications Complications None Follow Up Care/Instructions Patient Instructions None needed. Anesthesia/Patient Condition Patient Condition Patient is doing well, no complaints, stable vital signs, no apparent adverse anesthesia problems. No complications reported per nursing. OSCAR SCHULER CRNA May 19, 2019 12:33
[2019-05-19] MEDS ORDERED: IBUPROFEN 800 MG (MOTRIN) TAB PO SCH (13:30)
== END 2019-05-19 11:00 | disposition home or self-care (01) ==
LOC: SDC 10:02 → WS 15:00 → SDC 05-19 11:00
PROVIDERS: ATTEND Obstetrics & Gynecology
DX: N81.4 Uterovaginal prolapse, unspecified (principal); N39.3 Stress incontinence (female) (male); N83.201 Unspecified ovarian cyst, right side; N80.0 Endometriosis of uterus; N32.81 Overactive bladder; E11.9 Type 2 diabetes mellitus without complications; I10 Essential (primary) hypertension; K76.0 Fatty (change of) liver, not elsewhere classified; E28.2 Polycystic ovarian syndrome; Z79.899 Other long term (current) drug therapy; Z79.84 Long term (current) use of oral hypoglycemic drugs; F41.9 Anxiety disorder, unspecified; F32.9 Major depressive disorder, single episode, unspecified; K21.9 Gastro-esophageal reflux disease without esophagitis; E66.01 Morbid (severe) obesity due to excess calories; Z68.41 Body mass index [BMI] 40.0-44.9, adult
CPT/HCPCS: 36415; 82962; 84703; 85025; 86850; 86900; 86901; 94664

== ENCOUNTER → 2019-11-28 | Outpatient (CLI) | payer OTHER ==
[~2019-11-28] MED LIST changes: -BENZOCAINE/MENTHOL (DERMOPLAST) 60 ML CAN TP PRN; +BREX1TAB PO; +CIPR-225 PO; -ESTROGENS CONJ INJECTION 25 MG in WATER (STERILE) FOR INJECTION 5 ML IV ONE; -KETOROLAC 30 MG/ML VIAL IVP SCH; +LIRA0.6P SQ; -MEPERIDINE (DEMEROL) INJ 100 MG/ML IM PRN; -ONDANSETRON 4 MG/2 ML (SDV) Z0FRAN IVP PRN; -PROMETHAZINE INJ 25 MG/ML (PHENERGAN) AMP IM PRN
[2019-11-28 08:59] LABS: BASOPHILS # (AUTO) 0.1 10^3/uL (0.0-0.1); BASOPHILS % (AUTO) 1 % (0-10); EOSINOPHILS # (AUTO) 0.2 10^3/uL (0.0-0.3); EOSINOPHILS % (AUTO) 3 % (0-10); HEMATOCRIT 42 % (35-52); HEMOGLOBIN 14.2 g/dL (11.5-16.0); LYMPHOCYTES % (AUTO) 33 % (12-44); MEAN CORPUSCULAR HEMOGLOBIN 29 pg (25-34); MEAN CORPUSCULAR HGB CONC 34 g/dL (32-36); MEAN CORPUSCULAR VOLUME 85 fL (80-99); MEAN PLATELET VOLUME 11.3 fL (9.0-12.2); MONOCYTES # (AUTO) 0.6 10^3/uL (0.0-1.0); MONOCYTES % (AUTO) 10 % (0-12); NEUTROPHILS # (AUTO) 3.2 10^3/uL (1.8-7.8); NEUTROPHILS % (AUTO) 53 % (42-75); PLATELET COUNT 279 10^3/uL (130-400)
[2019-11-28 09:41] LABS: ALANINE AMINOTRANSFERASE 237 U/L (0-55); ALBUMIN 4.5 GM/DL (3.2-4.5); ALKALINE PHOSPHATASE 67 U/L (40-136); BILIRUBIN,TOTAL 0.9 MG/DL (0.1-1.0); BUN/CREATININE RATIO 12; CALCIUM 9.5 MG/DL (8.5-10.1); CARBON DIOXIDE 17 MMOL/L (21-32); CHLORIDE 107 MMOL/L (98-107); CHOLESTEROL 181 MG/DL (< 200); CREATININE SERUM 0.77 MG/DL (0.60-1.30); GFR ESTIMATED > 60; GLUCOSE 158 MG/DL (70-105); HDL CHOLESTEROL 27 MG/DL (40-60); POTASSIUM 3.9 MMOL/L (3.6-5.0); SODIUM 137 MMOL/L (135-145); TOTAL PROTEIN 7.7 GM/DL (6.4-8.2); TRIGLYCERIDES 220 MG/DL (<150); VLDL CHOLESTEROL 44 MG/DL (5-40)
[2019-11-28 10:03] LABS: FREE T4 (FREE THYROXINE) 0.88 NG/DL (0.70-1.48)
[2019-11-29 11:55] LABS: ALBUMIN 4.5 GM/DL (3.2-4.5); BILIRUBIN,TOTAL 0.9 MG/DL (0.1-1.0); TOTAL PROTEIN 7.7 GM/DL (6.4-8.2)
[2019-11-29 12:13] LABS: BILIRUBIN,DIRECT 0.3 MG/DL (0.0-0.3); BILIRUBIN,INDIRECT 0.6 MG/DL
[2019-11-30 16:45] LABS: HEPATITIS C ANTIBODY C Non-Reactive (Non-Reactive)
== END ==
LOC: LAB 08:31
PROVIDERS: ATTEND Family Medicine
DX: E11.65 Type 2 diabetes mellitus with hyperglycemia (principal); I10 Essential (primary) hypertension; Z83.49 Family history of other endocrine, nutritional and metabolic diseases
CPT/HCPCS: 36415; 80053; 80061; 80074; 80076; 82248; 82306; 82607; 82728; 83036; 84439; 84443; 84481; 85025

== ENCOUNTER → 2020-03-27 | Outpatient (CLI) | payer OTHER ==
[~2020-03-27] MED LIST changes: +AMLO-250 PO; -AMLO5TAB9 PO
--- NOTE | 2020-03-28 11:10 | Diagnostic Imaging Report ---
INDICATION: Routine screening. Comparison is made prior mammogram from 02/01/2019 and 10/11/2017. 2-D and 3-D bilateral screening mammography was performed with CAD. Scattered fibroglandular densities are identified bilaterally. Overall parenchymal pattern appears to be stable. Nodule in the retroareolar left breast is stable. No new mass or malignant appearing microcalcifications are seen. Axillae are unremarkable. IMPRESSION: BI-RADS Category 2 No mammographic features suspicious for malignancy are identified. ACR BI-RADS Category 2: Benign findings. Result letter will be mailed to the patient. Note: At least 10% of breast cancer is not imaged by mammography. Dictated by: Dictated on workstation # [id number]
== END ==
LOC: RAD 15:00
PROVIDERS: ATTEND Family Medicine
DX: Z12.31 Encounter for screening mammogram for malignant neoplasm of breast (principal)
CPT/HCPCS: 77063; 77067

== ENCOUNTER → 2020-06-04 | Outpatient (CLI) | payer OTHER ==
[~2020-06-04] MED LIST changes: -LISI40TA PO; +LISI40TA9 PO
[2020-06-04 09:40] LABS: BASOPHILS # (AUTO) 0.1 10^3/uL (0.0-0.1); BASOPHILS % (AUTO) 1 % (0-10); EOSINOPHILS # (AUTO) 0.2 10^3/uL (0.0-0.3); EOSINOPHILS % (AUTO) 3 % (0-10); HEMATOCRIT 46 % (35-52); HEMOGLOBIN 14.8 g/dL (11.5-16.0); LYMPHOCYTES # (AUTO) 1.8 10^3/uL (1.0-4.0); LYMPHOCYTES % (AUTO) 31 % (12-44); MEAN CORPUSCULAR HEMOGLOBIN 29 pg (25-34); MEAN CORPUSCULAR HGB CONC 33 g/dL (32-36); MEAN CORPUSCULAR VOLUME 89 fL (80-99); MEAN PLATELET VOLUME 10.9 fL (9.0-12.2); MONOCYTES # (AUTO) 0.5 10^3/uL (0.0-1.0); MONOCYTES % (AUTO) 8 % (0-12); NEUTROPHILS # (AUTO) 3.4 10^3/uL (1.8-7.8); NEUTROPHILS % (AUTO) 57 % (42-75); PLATELET COUNT 241 10^3/uL (130-400); WHITE BLOOD COUNT 5.9 10^3/uL (4.3-11.0)
[2020-06-04 10:15] LABS: ALANINE AMINOTRANSFERASE 172 U/L (0-55); ALBUMIN 4.3 GM/DL (3.2-4.5); ALKALINE PHOSPHATASE 56 U/L (40-136); BILIRUBIN,TOTAL 0.7 MG/DL (0.1-1.0); BUN/CREATININE RATIO 13; CALCIUM 9.8 MG/DL (8.5-10.1); CARBON DIOXIDE 24 MMOL/L (21-32); CHLORIDE 105 MMOL/L (98-107); CHOLESTEROL 170 MG/DL (< 200); CREATININE SERUM 0.84 MG/DL (0.60-1.30); GFR ESTIMATED > 60; GLUCOSE 139 MG/DL (70-105); HDL CHOLESTEROL 34 MG/DL (40-60); POTASSIUM 4.2 MMOL/L (3.6-5.0); SODIUM 139 MMOL/L (135-145); TOTAL PROTEIN 7.6 GM/DL (6.4-8.2); TRIGLYCERIDES 205 MG/DL (<150); VLDL CHOLESTEROL 41 MG/DL (5-40)
== END ==
LOC: LAB 09:10
PROVIDERS: ATTEND Family Medicine
DX: E11.65 Type 2 diabetes mellitus with hyperglycemia (principal); I10 Essential (primary) hypertension; E78.2 Mixed hyperlipidemia; K75.81 Nonalcoholic steatohepatitis (NASH); E55.9 Vitamin D deficiency, unspecified; E53.8 Deficiency of other specified B group vitamins
CPT/HCPCS: 36415; 80053; 80061; 82306; 82607; 83036; 85025

== ENCOUNTER → 2020-09-23 | Outpatient (CLI) | payer OTHER ==
[2020-09-23 08:59] LABS: ALBUMIN 4.2 GM/DL (3.2-4.5); BILIRUBIN,TOTAL 0.6 MG/DL (0.1-1.0); CALCIUM 9.5 MG/DL (8.5-10.1); CREATININE SERUM 0.79 MG/DL (0.60-1.30); POTASSIUM 4.3 MMOL/L (3.6-5.0); TOTAL PROTEIN 7.7 GM/DL (6.4-8.2)
== END ==
LOC: LAB 08:06
PROVIDERS: ATTEND Family Medicine
DX: E11.9 Type 2 diabetes mellitus without complications (principal)
CPT/HCPCS: 36415; 80053; 83036

== ENCOUNTER → 2021-01-27 | Outpatient (CLI) | payer OTHER ==
[~2021-01-27] MED LIST changes: -DCS100C PO; +DOCU-239 PO
[2021-01-27 10:05] LABS: ALBUMIN 4.2 GM/DL (3.2-4.5); BILIRUBIN,TOTAL 0.8 MG/DL (0.1-1.0); CALCIUM 9.6 MG/DL (8.5-10.1); CREATININE SERUM 0.81 MG/DL (0.60-1.30); POTASSIUM 4.1 MMOL/L (3.6-5.0); TOTAL PROTEIN 7.6 GM/DL (6.4-8.2)
== END ==
LOC: LAB 09:23
PROVIDERS: ATTEND Family Medicine
DX: E11.65 Type 2 diabetes mellitus with hyperglycemia (principal)
CPT/HCPCS: 36415; 80053; 83036

== ENCOUNTER → 2021-05-01 | Outpatient (CLI) | payer OTHER ==
[2021-05-01 08:19] LABS: HEMATOCRIT 41 % (35-52); HEMOGLOBIN 13.8 g/dL (11.5-16.0); MEAN CORPUSCULAR HEMOGLOBIN 30 pg (25-34); MEAN CORPUSCULAR HGB CONC 34 g/dL (32-36); MEAN CORPUSCULAR VOLUME 88 fL (80-99); MEAN PLATELET VOLUME 10.9 fL (9.0-12.2); PLATELET COUNT 219 10^3/uL (130-400); WHITE BLOOD COUNT 6.4 10^3/uL (4.3-11.0)
[2021-05-01 08:27] LABS: ALBUMIN 4.3 GM/DL (3.2-4.5); POTASSIUM 4.3 MMOL/L (3.6-5.0)
[2021-05-01 08:30] LABS: TOTAL PROTEIN 7.6 GM/DL (6.4-8.2)
[2021-05-01 08:31] LABS: BILIRUBIN,TOTAL 0.6 MG/DL (0.1-1.0)
[2021-05-01 08:33] LABS: CREATININE SERUM 0.76 MG/DL (0.60-1.30)
== END ==
LOC: LAB 07:58
PROVIDERS: ATTEND Family Medicine
DX: E11.9 Type 2 diabetes mellitus without complications (principal); I10 Essential (primary) hypertension; E78.2 Mixed hyperlipidemia
CPT/HCPCS: 36415; 80053; 80061; 83036; 85027

== ENCOUNTER → 2021-05-26 | Outpatient (CLI) | payer OTHER ==
--- NOTE | 2021-05-26 13:03 | Diagnostic Imaging Report ---
INDICATION: Routine screening. COMPARISON: 03/27/2020 and 02/01/2019. TECHNIQUE: 2D and 3D bilateral screening mammography was performed with CAD. FINDINGS: Scattered fibroglandular densities are identified bilaterally. The parenchymal pattern is stable. No dominant mass or malignant-appearing microcalcifications are seen. The nodular density in the retroareolar left breast is stable. The axillae are unremarkable. IMPRESSION: No mammographic features suspicious for malignancy are identified. ACR BI-RADS Category 2: Benign findings. Result letter will be mailed to the patient. Note: At least 10% of breast cancer is not imaged by mammography. Dictated by: Dictated on workstation # [id number]
== END ==
LOC: RAD 09:00
PROVIDERS: ATTEND Family Medicine
DX: Z12.31 Encounter for screening mammogram for malignant neoplasm of breast (principal)
CPT/HCPCS: 77063; 77067

== ENCOUNTER 2021-07-02 05:33 | Outpatient (CLI) | payer OTHER ==
[~2021-07-02] VITALS: Ht 157.5 cm; Wt 93.0 kg
[2021-07-02] MEDS ORDERED: VITA400T9 PO (11:40)
[2021-07-02] MEDS ORDERED: CHOL10004 PO (11:40)
[2021-07-02] MEDS ORDERED: CYAN250010 PO (11:40)
[2021-07-02] MEDS ORDERED: ASPI-999 PO (11:40)
[2021-07-02] MEDS ORDERED: ESTR1TAB24 PO (11:40)
== END 2021-07-02 11:43 | disposition home or self-care (01) ==
LOC: PREOP 05:33
PROVIDERS: ATTEND Internal Medicine
DX: Z01.818 Encounter for other preprocedural examination (principal)

== ENCOUNTER 2021-07-10 07:01 | Day surgery (SDC) | payer OTHER ==
--- NOTE | 2021-07-02 07:54 | HISTORY AND PHYSICAL ---
DATE OF SERVICE: COLONOSCOPY HISTORY AND PHYSICAL HISTORY OF PRESENT ILLNESS: The patient is a 46-year-old white female referred for screening colonoscopy. She is deemed to be of higher than average risk as she had an uncle, who was diagnosed with colon cancer in his 40s and also reports 12 members of the family including mother's multiple cousins and aunts have had uterine cancer. They are all on her mother's side of the family. She had a previous hysterectomy for benign condition in 2019. PAST SURGICAL HISTORY: Other than her hysterectomy is pertinent for cholecystectomy in 2004. PAST MEDICAL HISTORY: Significant for asthma, reportedly well controlled and type 2 diabetes. SOCIAL HISTORY: She reports no past smoking or drinking history, is with children and employed. FAMILY HISTORY: As noted in the HPI. REVIEW OF SYSTEMS: CONSTITUTIONAL: Denies night sweats, chills, fever, change in weight. PULMONARY: Inhaler therapy. Denies cough, wheezing or shortness of breath. CARDIOVASCULAR: Denies orthopnea, PND, pedal edema or chest pain. GASTROINTESTINAL: Denies bright red blood per rectum, melena, abdominal pain or change in bowel habit. PHYSICAL EXAMINATION: GENERAL: Reveals a pleasant white female, appears to be in no acute distress. VITAL SIGNS: Blood pressure 120/84. HEENT: Unremarkable. Sclerae nonicteric. CHEST: Clear to auscultation. CARDIOVASCULAR: Reveals regular rate and rhythm without murmur, S3 or S4. ABDOMEN: Soft, supple without mass, organomegaly or tenderness. EXTREMITIES: Reveal no cyanosis, clubbing or edema. ASSESSMENT AND PLAN: The patient is being set up for screening colonoscopy, deemed to be of higher than average risk as she does have one uncle, who had colon cancer at a young age in his 40s and there is a strong family history for uterine cancer as noted above. Prep instructions and Suprep kit were given, and questions were answered. The patient was advised to abstain from aspirin for a week prior to colonoscopy, which is being scheduled on 07/10/2020. Job ID: [id number] DocumentID: [id number] Dictated Date: 06/11/2021 11:49:23 Concrete Pavement Installer Date: 06/11/2021 12:01:01 Dictated By: LOUISE CEDEÑO MD FAXTON HOSPITALLoyda
[~2021-07-10] VITALS: Ht 157.5 cm; Wt 93.0 kg
[~2021-07-10 07:01] MED LIST changes: +ASPI-999 PO; +CHOL10004 PO; +CYAN250010 PO; +VITA400T9 PO
[2021-07-10] MEDS ORDERED: LACTATED RINGERS 1,000 ML IV STA (07:09)
[2021-07-10 07:15] VITALS: BP 119/83
[2021-07-10] MEDS ORDERED: PROPOFOL INJECTION 50 ML IV ONE (07:16)
[2021-07-10] MEDS ORDERED: MIDAZOLAM 2 MG/2 ML (VERSED) VIAL ONE (07:16)
--- NOTE | 2021-07-10 08:22 | Pre-Op Note & Conscious Sedat ---
Pre-Operative Progress Note H&P Reviewed The H&P was reviewed, patient examined and no changes noted. Date H&P Reviewed: July 10, 2021 Time H&P Reviewed: 07:40 Conscious Sedation Pre-Proced ASA Score 2 For ASA 3 and 4: Consider anesthesia and medical clearance. Also, for patients with a history of failed moderate sedation consider anesthesia. Airway Lungs Heart ASA score ASA 1: a normal healthy patient ASA 2: a patient with a mild systemic disease (mid diabetes, controlled hypertension, obesity ASA 3: a patient with a severe systemic disease that limits activity (angina, COPD, prior Myocardial infarction) ASA 4: a patient with an incapacitating disease that is a constant threat to life (CHF, renal failure) ASA 5: a moribund patient not expected to survive 24 hrs. (ruptured aneurysm) ASA 6: a declared brain- patient whose organs are being harvested. For emergent operations, add the letter E after the classification Mallampati Classification Grade 2 Sedation Plan Analgesia, Amnesia, Plan communicated to team members, Discussed options with patient/fam, Discussed risks with patient/fam The patient is an appropriate candidate to undergo the planned procedure, sedation, and anesthesia. The patient immediately re-assessed prior to indication. LOUISE CEDEÑO MD July 10, 2021 08:22
[2021-07-10 08:25] VITALS: BP 99/57
[2021-07-10 08:27] VITALS: BP 99/57
[2021-07-10 08:52] VITALS: BP 95/72
--- NOTE | 2021-07-10 09:31 | Anesthesia-General Post-Op ---
MAC Patient Condition Mental Status/LOC: Same as Preop Cardiovascular: Satisfactory Nausea/Vomiting: Absent Respiratory: Satisfactory Pain: Controlled Complications: Absent Post Op Complications Complications None Follow Up Care/Instructions Patient Instructions None needed. Anesthesiology Discharge Order Discharge Order Patient is doing well, no complaints, stable vital signs, no apparent adverse anesthesia problems. No complications reported per nursing. AV FUENTES DO July 10, 2021 09:31
--- NOTE | 2021-07-10 12:01 | OPERATIVE REPORT ---
DATE OF SERVICE: COLONOSCOPY SUMMARY INDICATION FOR THE PROCEDURE: Screening colonoscopy, family history of colon cancer. DESCRIPTION OF PROCEDURE: The patient was placed in the left lateral decubitus position. Prior to undergoing colonoscopy, digital rectal evaluation was performed. Anal sphincter tone was normal and the perianal reflexes intact. No abnormalities were noted on digital inspection of anal canal or distal rectal vault. The colonoscope was then inserted into the rectum and under direct visualization advanced to cecum. The cecum was identified by identification of ileocecal valve and cecal strap. Photographic documentation was obtained. Quality of prep was fair. FINDINGS: There were no evidence for internal or external hemorrhoids and the rectum was unremarkable. One sessile 4 mm polyp was noted in the proximal sigmoid colon, was biopsied and ablated. No other sigmoid colonic abnormalities were appreciated with no evidence for diverticular disease. The descending colon, splenic flexure, transverse colon, hepatic flexure, ascending colon, and cecum were unremarkable. ASSESSMENT: One 4 mm sessile polyp was removed from the proximal sigmoid colon via hot forceps. This was otherwise normal colonoscopy to the cecum. As long as there are no surprise on histopathology report considering family history, we would advocate repeat screening colonoscopy in 5 years. I thank you for the referral of this pleasant lady. Job ID: [id number] DocumentID: [id number] Dictated Date: 07/10/2021 08:57:40 Dance Hall Hostess Date: 07/10/2021 12:01:12 Dictated By: LOUISE CEDEÑO MD
== END 2021-07-10 09:20 | disposition home or self-care (01) ==
LOC: ENDO 07:01
PROVIDERS: ATTEND Internal Medicine
DX: Z12.11 Encounter for screening for malignant neoplasm of colon (principal); D12.5 Benign neoplasm of sigmoid colon
CPT/HCPCS: 82947

== ENCOUNTER → 2021-09-07 | Outpatient (CLI) | payer OTHER ==
[2021-09-07 09:09] LABS: ALBUMIN 4.3 GM/DL (3.2-4.5)
[2021-09-07 09:10] LABS: POTASSIUM 4.2 MMOL/L (3.6-5.0)
[2021-09-07 09:11] LABS: CALCIUM 9.6 MG/DL (8.5-10.1)
[2021-09-07 09:12] LABS: TOTAL PROTEIN 7.4 GM/DL (6.4-8.2)
[2021-09-07 09:14] LABS: BILIRUBIN,TOTAL 0.8 MG/DL (0.1-1.0)
[2021-09-07 09:15] LABS: CREATININE SERUM 0.7 MG/DL (0.60-1.30)
== END ==
LOC: LAB 08:36
PROVIDERS: ATTEND Family Medicine
DX: E11.9 Type 2 diabetes mellitus without complications (principal); I10 Essential (primary) hypertension; E78.2 Mixed hyperlipidemia
CPT/HCPCS: 36415; 80053; 83036

== ENCOUNTER → 2022-01-07 | Outpatient (CLI) | payer BC, OTHER ==
[2022-01-07 08:59] LABS: ALBUMIN 4.4 GM/DL (3.2-4.5); BILIRUBIN,TOTAL 0.8 MG/DL (0.1-1.0); CALCIUM 9.5 MG/DL (8.5-10.1); CREATININE SERUM 0.79 MG/DL (0.60-1.30); POTASSIUM 4.3 MMOL/L (3.6-5.0); TOTAL PROTEIN 7.8 GM/DL (6.4-8.2)
== END ==
LOC: LAB 07:38
PROVIDERS: ATTEND Family Medicine
DX: I10 Essential (primary) hypertension (principal); E11.9 Type 2 diabetes mellitus without complications
CPT/HCPCS: 36415; 80053; 83036

== ENCOUNTER → 2022-08-11 | Outpatient (CLI) | payer BC ==
--- NOTE | 2022-08-11 13:33 | Diagnostic Imaging Report ---
INDICATION: Fall. Back pain. COMPARISON: None FINDINGS: Frontal and lateral views of the lumbar spine were obtained. Alignment and vertebral heights are maintained. There is no fracture or destructive process. Limited views of the abdomen demonstrate nonobstructive bowel gas pattern. IMPRESSION: 1. No acute fracture or dislocation of the lumbar spine. Dictated by: Dictated on workstation # [id number]
== END ==
LOC: RAD 12:52
PROVIDERS: ATTEND Nurse Practitioner Family
DX: M25.551 Pain in right hip (principal); M54.50 Low back pain, unspecified; M54.31 Sciatica, right side
CPT/HCPCS: 72100

== ENCOUNTER → 2022-08-18 | Outpatient (CLI) | payer BC ==
--- NOTE | 2022-08-18 11:03 | Diagnostic Imaging Report ---
INDICATION: Routine screening. COMPARISON: 05/26/2021 and 03/27/2020. TECHNIQUE: 2D and 3D bilateral screening mammography was performed with CAD. FINDINGS: Scattered fibroglandular densities are identified bilaterally. The parenchymal pattern is stable. No dominant mass or malignant-appearing microcalcifications are seen. There are benign calcifications identified. The axillae are unremarkable. IMPRESSION: No mammographic features suspicious for malignancy are identified. ACR BI-RADS Category 2: Benign findings. Result letter will be mailed to the patient. Note: At least 10% of breast cancer is not imaged by mammography. Dictated by: Dictated on workstation # [id number]
== END ==
LOC: RAD 09:33
PROVIDERS: ATTEND Nurse Practitioner Family
DX: Z12.31 Encounter for screening mammogram for malignant neoplasm of breast (principal)
CPT/HCPCS: 77063; 77067

== ENCOUNTER → 2022-08-27 | Outpatient (RCR) | payer BC | END | disposition home or self-care (01) | PROVIDERS: ATTEND Nurse Practitioner Family | DX: M54.41 Lumbago with sciatica, right side (principal); M25.551 Pain in right hip; M79.604 Pain in right leg; I10 Essential (primary) hypertension; E11.9 Type 2 diabetes mellitus without complications ==

== ENCOUNTER → 2022-09-27 | Outpatient (RCR) | payer BC | END | disposition home or self-care (01) | PROVIDERS: ATTEND Nurse Practitioner Family | DX: M54.41 Lumbago with sciatica, right side (principal); M25.551 Pain in right hip; M79.604 Pain in right leg; I10 Essential (primary) hypertension; E11.9 Type 2 diabetes mellitus without complications ==

== ENCOUNTER → 2022-10-07 | Outpatient (CLI) | payer BC ==
--- NOTE | 2022-10-07 09:44 | Diagnostic Imaging Report ---
PROCEDURE: MRI lumbar spine. TECHNIQUE: Multiplanar, multisequence MRI of the lumbar spine was performed without contrast. INDICATION: Chronic low back pain and left lower extremity radiculopathy. No prior MRI studies are available for comparison. The curvature and alignment of the lumbar spine is normal. The vertebral body heights are maintained. Marrow signal intensity is unremarkable. No compression fracture or geographic marrow lesion is identified. There is mild disc desiccation at the L4-L5 level but disc heights are maintained. The conus is unremarkable at the T12-L1 level. T12-L1: No central canal or neural foraminal narrowing is identified. L1-L2: Central canal neural foramina are widely patent. L2-L3: Central canal neural foramina are widely patent. L3-L4: There is mild degenerative facet changes but central canal and neural foramina are widely patent. L4-L5: There is some broad-based disc/osteophyte complex flattening the ventral thecal sac. This does produce moderate narrowing of the lateral recesses bilaterally. There is also hypertrophic facet changes noted. No significant neural foraminal narrowing is seen. No significant central canal narrowing is identified. L5-S1: No central canal or neural foraminal narrowing is detected. Paraspinous tissues are unremarkable. IMPRESSION: Lower lumbar spondylosis, greatest at L4-L5 level where there is bilateral lateral recess stenosis. No significant central canal or neural foraminal stenosis is identified. No acute compression fractures are detected. Dictated by: Dictated on workstation # [id number]
== END ==
LOC: RAD 08:00
PROVIDERS: ATTEND Nurse Practitioner Family
DX: M47.816 Spondylosis without myelopathy or radiculopathy, lumbar region (principal); M48.061 Spinal stenosis, lumbar region without neurogenic claudication
CPT/HCPCS: 72148

== ENCOUNTER 2022-10-22 15:58 | Outpatient (RCR) | payer BC | END 2022-10-28 | disposition home or self-care (01) | PROVIDERS: ATTEND Nurse Practitioner Family | DX: M54.41 Lumbago with sciatica, right side (principal); M25.551 Pain in right hip; M79.604 Pain in right leg ==

== ENCOUNTER 2022-12-24 15:45 | Outpatient (RCR) | payer BC | END 2022-12-28 | disposition home or self-care (01) | PROVIDERS: ATTEND Nurse Practitioner Family | DX: M54.41 Lumbago with sciatica, right side (principal); M25.551 Pain in right hip; M79.604 Pain in right leg ==